=== PATIENT | male | born 1955 | race Caucasian/White ===

== ENCOUNTER 2016-05-17 20:40 | Observation (INO) | payer OTHER ==
[~2016-05-17] VITALS: Ht 180.3 cm; Wt 94.6 kg
[~2016-05-17 20:40] MED LIST: ALBUAER19 INH; ATRINS NEB; ATV/1 PO; CITA20TA9 PO; GABA-113 PO; INSDGIPEN PO; INSUINJ4 SC; LEVA1.255 PO; LEVO1TAB35 PO; METH-307 PO; MORP1TAB11 PO; MULTTAB58 PO; NITR0.4S UT; NVLGI/PEN SC; NVLGIPEN SC; PANT40TA PO; POLY335019 PO; PRED10TA PO; SENN-65 PO; TNR25X PO
[2016-05-17] MEDS ORDERED: FLUT0.15 NAE (20:51)
[2016-05-17] MEDS ORDERED: HYDR-4079 PO (20:51)
[2016-05-17] MEDS ORDERED: ADVIN50/60 INH (20:53)
--- NOTE | 2016-05-17 20:54 | EMERGENCY ROOM VISIT NOTE ---
History Report prepared by James: Enzo Maria Under the Supervision of: Dr. Luis Alberto Slater M.D. First contact with patient: 20:43 Chief Complaint: CHEST PAIN Stated Complaint: CHEST PAIN History of Present Illness The patient is a 61 year old male who presents to the Emergency Room with complaints of persistent chest pain for the past few days. The patient also complains of trouble breathing, a shooting pain down his back, diffuse body aches and a productive cough. He notes that he has been sick for the past few weeks. His chest discomfort worsened today and so he presented to the ED for further evaluation. The patient has a cardiac history. He took 2 Nitro and Aspirin at home with minimal relief of his symptoms. Source of History: patient Onset: past few days Position: chest Timing: worsening, other (persistent) Associated Symptoms: + SOB (trouble breathing), + back pain (shooting pain down his back), + cough (productive) Note: Other associated symptoms: diffuse body aches Review of Systems See HPI for pertinent positives & negatives. A total of 10 systems reviewed and were otherwise negative. 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 (15) Spinal stenosis in cervical region (16) Unstable angina Surgical Problems: (1) History of appendectomy (2) Stented coronary artery Family History Cancer Diabetes mellitus Heart disease Hypertension Lung disease Social History Smoking Status: Current Every Day Smoker Alcohol Use: none Drug Use: none Marital Status: single Housing Status: lives with family Occupation Status: unemployed Current/Historical Medications Scheduled Aspirin (Aspirin Ec), 81 MG PO DAILY Atenolol (Atenolol), 12.5 MG PO QPM Atenolol (Atenolol), 25 MG PO QAM Vmkoguz-Epjufxzcb-Eaxb (Calcium Magnesium & Zinc), 1 TAB PO DAILY Citalopram Hydrobromide (Celexa), 20 MG PO DAILY Coenzyme Q10 (Ubidecarenone) (Co Q-10), 200 MG PO TID Fluticasone Prop/Salmeterol (Advair Diskus 500/50 60 Dose), 1 PUFF INH BID Fluticasone Propionate (Nasal) (Flonase Allergy Relief), 2 SPRAYS ÁNGELA DAILY Gabapentin (Neurontin), 300 MG PO BID Insulin Glargine (Lantus Solostar), 10 UNITS PO QPM Insulin Glargine (Lantus Solostar), 20 UNITS SC QAM Insulin Lispro (Human) (Humalog Kwikpen), 8 UNITS SC BREAKFAST Insulin Lispro (Human) (Humalog Kwikpen), 8 UNITS SC MIDDAY SNACKS Insulin Lispro (Human) (Humalog Kwikpen), 10 UNITS SC SUPPER Ipratropium-Albuterol (Duoneb), 1 TREATMENT INH BID Montelukast Sod (Montelukast Sodium), 10 MG PO QAM Morphine Sulfate (Morphine Sulfate Cr), 15 MG PO TID Multiple Vitamin (Multivitamin), 1 TABLET PO DAILY Pantoprazole (Protonix), 40 MG PO DAILY Potassium Chloride Microencaps (Potassium Chloride Er), 20 MEQ PO DAILY Prednisone (Prednisone), 5 MG PO DAILY Probiotic Product (Probiotic), 1 TAB PO DAILY Warfarin Sod (Coumadin), 10 MG PO 2XWK Warfarin Sodium (Warfarin Sodium), 2.5 MG PO 5XWK Warfarin Sodium (Warfarin Sodium), 5 MG PO 5XWK Scheduled PRN Albuterol (Ventolin Hfa), 2 PUFFS INH QID PRN for SOB/Wheezing Hydrocodone/Acetaminophen 10MG/325MG ([place] 10MG/325MG), 1 TAB PO BID PRN for Pain Ipratropium-Albuterol (Duoneb), 1 TREATMENT INH Q6H PRN for SOB/Wheezing Lorazepam (Lorazepam), 1 MG PO Q8 PRN for Anxiety/Agitation Methocarbamol (Methocarbamol), 750 MG PO DAILY PRN for Muscle Pain Nitroglycerin (Nitrostat), 0.4 MG UT UD PRN for Chest Pain Polyethylene Glycol 3350 (Miralax), 17 GM PO DAILY PRN for Severe Constipation Temazepam (Restoril), 30 MG PO HS PRN for Sleep Allergies Coded Allergies: Diclofenac (Verified Adverse Reaction, Unknown, RASH WITH JOINT SWELLING- CAN TAKE ASPIRIN, 03/18/16) Physical Exam Vital Signs Date Time Temp Pulse Resp B/P Pulse Ox O2 Delivery O2 Flow Rate FiO2 05/17/16 22:23 36.7 05/17/16 22:23 57 23 105/64 96 Room Air 05/17/16 21:30 60 20 122/68 95 05/17/16 20:49 97 Room Air 05/17/16 20:49 70 16 125/76 98 Room Air 05/17/16 20:49 66 05/17/16 20:47 98 Nasal Cannula Physical Exam GENERAL: Patient is uncomfortable appearing and in moderate distress. HEENT: No acute trauma, normocephalic atraumatic, mucous membranes moist, no nasal congestion, no scleral icterus. NECK: No stridor, no adenopathy, no meningismus, trachea is midline. LUNGS: No dyspnea. Clear to auscultation and equal bilaterally. No wheeze, no rhonchi. HEART: Regular rate and rhythm. No murmurs, rubs, gallops appreciated. ABDOMEN: Soft, nontender, bowel sounds positive, no masses appreciated, no peritonitis. BACK: No midline tenderness, no CVA tenderness EXTREMITIES: Normal motion all extremities, no cyanosis, no edema. NEUROLOGIC: Alert and oriented, no acute motor or sensory deficits, no focal weakness, cranial nerves grossly intact. SKIN: No rash, no jaundice, no diaphoresis. Medical Decision & Procedures ER Provider Diagnostic Interpretation: X ray results and stated below per my interpretation and radiologist interpretation. Other radiology results and stated below per my review and radiologist interpretation: CHEST ONE VIEW PORTABLE CLINICAL HISTORY: Chest pain. COMPARISON STUDY: Chest radiograph March 18, 2016. FINDINGS: Note is made of lordotic positioning on this exam. Lung volumes are normal. Mild linear bibasilar opacities favor atelectasis. Cardiac size is normal. Mediastinal contours are normal. There is no evidence of pulmonary edema. IMPRESSION: 1. No acute cardiopulmonary findings. 2. Mild bibasilar opacities which favor atelectasis. Electronically signed by: Uday Shields M.D. 05/17/2016 9:45 PM Dictated Date/Time: 05/17/2016 9:44 PM Chest/ Thorax CTA: Laboratory Results 05/17/16 20:18 Red Blood Count 4.85, Mean Corpuscular Volume 89.9, Mean Corpuscular Hemoglobin 32.4, Mean Corpuscular Hemoglobin Concent 36.0, Mean Platelet Volume 10.8, Neutrophils (%) (Auto) 76.9, Lymphocytes (%) (Auto) 17.1, Monocytes (%) (Auto) 5.3, Eosinophils (%) (Auto) 0.3, Basophils (%) (Auto) 0.2, Neutrophils # (Auto) 6.86, Lymphocytes # (Auto) 1.53, Monocytes # (Auto) 0.47, Eosinophils # (Auto) 0.03, Basophils # (Auto) 0.02 05/17/16 20:18 Test 05/17/16 20:18 White Blood Count 8.93 K/uL (4.8-10.8) Red Blood Count 4.85 M/uL (4.7-6.1) Hemoglobin 15.7 g/dL (14.0-18.0) Hematocrit 43.6 % (42-52) Mean Corpuscular Volume 89.9 fL (80-100) Mean Corpuscular Hemoglobin 32.4 pg (25-34) Mean Corpuscular Hemoglobin Concent 36.0 g/dl (32-36) Platelet Count 189 K/uL (130-400) Mean Platelet Volume 10.8 fL (7.4-10.4) Neutrophils (%) (Auto) 76.9 % Lymphocytes (%) (Auto) 17.1 % Monocytes (%) (Auto) 5.3 % Eosinophils (%) (Auto) 0.3 % Basophils (%) (Auto) 0.2 % Neutrophils # (Auto) 6.86 K/uL (1.4-6.5) Lymphocytes # (Auto) 1.53 K/uL (1.2-3.4) Monocytes # (Auto) 0.47 K/uL (0.11-0.59) Eosinophils # (Auto) 0.03 K/uL (0-0.5) Basophils # (Auto) 0.02 K/uL (0-0.2) RDW Standard Deviation 40.4 fL (36.4-46.3) RDW Coefficient of Variation 12.4 % (11.5-14.5) Immature Granulocyte % (Auto) 0.2 % Immature Granulocyte # (Auto) 0.02 K/uL (0.00-0.02) Prothrombin Time 19.4 SECONDS (9.0-12.0) Prothromb Time International Ratio 1.8 (0.9-1.1) Activated Partial Thromboplast Time 33.6 SECONDS (21.0-31.0) Partial Thromboplastin Ratio 1.3 Anion Gap 11.0 mmol/L (3-11) Est Creatinine Clear Calc Drug Dose 107.8 ml/min Estimated GFR () 107.2 Estimated GFR (Non- 92.5 BUN/Creatinine Ratio 19.3 (10-20) Calcium Level 9.3 mg/dl (8.5-10.1) Laboratory results as reviewed by me. Medications Administered Medications (Trade) Dose Ordered Sig/Tal Route Start Time Stop Time Status Last Admin Dose Admin Nitroglycerin (Nitrostat Tab) 0.4 mg Q5M PRN SL 05/17/16 21:00 05/18/16 01:17 DC 05/17/16 21:02 0.4 MG Nitroglycerin (Nitroglycerin 2% Oint) 1 inch NOW ONCE EXT 05/17/16 21:00 05/17/16 21:01 DC 05/17/16 21:02 1 INCH Hydromorphone HCl (Dilaudid Inj) 1 mg NOW STAT IV 05/17/16 22:15 05/17/16 22:16 DC 05/17/16 22:30 1 MG Morphine Sulfate (MoRPHine SULFATE INJ) 2 mg Q30M PRN IV 05/18/16 00:15 06/01/16 00:14 05/18/16 01:33 2 MG ECG Indication: chest pain Rate (beats per minute): 68 Rhythm: normal sinus Findings: no acute ischemic change, no ectopy ED Course 2044: The patient was evaluated in room A9. A complete history and physical exam was performed. 2099: Ordered Nitroglycerin 1 inch EXT, Nitroglycerin 0.4 mg SL/ Chest pain. 2199: At this time, I discussed the patient's case with Dr. Haddad- [facility] and she agreed to accept the patient for further evaluation. 2214: Ordered Dilaudid Inj 1 mg IV. Medical Decision Differential: Cardiac Ischemia (STEMI, NSTEMI, Unstable Angina, etc), Aortic Dissection, Arrhythmia, Pulmonary Embolism, Pneumonia, Pneumothorax, MSK, Infectious, Pericarditis/Myocarditis, Esophageal Rupture, Gastrointestinal, amongst other pathologies entertained. 61 yr old male with extensive cardiac history arrives with acute worsening of cp which improved with nitro/paste. Complaining of diffuse body aches as well which he notes frequently gets thus dilaudid ordered with improvement. Complaining of frequent SOB and cough which he has been on multiple abx over last few months. No pneumonia on cxr and wbc OK without fever thus will hold on any empiric further abx. Given cardiac history I feel that cardiac rule out required. Stable throughout ED stay and brought in to medicine service. I do not feel this represents PE, dissection, rupture. No ACS evidence at this time of than history. Consults Time Called: 2154 Consulting Physician: Dr. Haddad - Hospitalist Sm[facility] Returned Call: 0 At this time, I discussed the patient's case with Dr. Haddad and she agreed to accept the patient for further evaluation. Impression Primary Impression: Left sided chest pain Additional Impression: SOB (shortness of breath) Scribe Attestation The scribe's documentation has been prepared under my direction and personally reviewed by me in its entirety. I confirm that the note above accurately reflects all work, treatment, procedures, and medical decision making performed by me. Departure Information Dispostion Being Evaluated By Hospitalist Referrals Justin Crook D.O. (PCP) Problem Qualifiers
[2016-05-17] MEDS ORDERED: NITROGLYCERIN 0.4 MG SL PER TAB CHARGE SL PRN (21:00)
[2016-05-17] MEDS ORDERED: NITROGLYCERIN OINT 2% 1GM PACKET EXT ONE (21:00)
[2016-05-17 21:07] LABS: BASO % 0.2 %; BASO ABS # 0.02 K/uL (0-0.2); COMPLETE YES; EOS % 0.3 %; HEMATOCRIT 43.6 % (42-52); IG% 0.2 %; LYMPH % 17.1 %; LYMPH ABS # 1.53 K/uL (1.2-3.4); MEAN CELL VOLUME 89.9 fL (80-100); MEAN CORPUSCULAR HEMOGLOBIN 32.4 pg (25-34); MEAN PLATELET VOLUME 10.8 fL (7.4-10.4); MONO % 5.3 %; NEUT % 76.9 %; PLATELET COUNT 189 K/uL (130-400); RED BLOOD COUNT 4.85 M/uL (4.7-6.1); WHITE BLOOD COUNT 8.93 K/uL (4.8-10.8)
[2016-05-17 21:23] LABS: BLOOD UREA NITROGEN 17 mg/dl (7-18); BUN/CREATININE RATIO 19.3 (10-20); CALCIUM 9.3 mg/dl (8.5-10.1); CARBON DIOXIDE 24 mmol/L (21-32); CHLORIDE 104 mmol/L (98-107); GLUCOSE 168 mg/dl (70-99); POTASSIUM 4.4 mmol/L (3.5-5.1); SODIUM 139 mmol/L (136-145)
[2016-05-17 21:28] LABS: CKMB/CK RATIO 2.7 (0-3.0)
--- NOTE | 2016-05-17 21:46 | DIAGNOSTIC IMAGING REPORT ---
CHEST ONE VIEW PORTABLE CLINICAL HISTORY: Chest pain. COMPARISON STUDY: Chest radiograph March 18, 2016. FINDINGS: Note is made of lordotic positioning on this exam. Lung volumes are normal. Mild linear bibasilar opacities favor atelectasis. Cardiac size is normal. Mediastinal contours are normal. There is no evidence of pulmonary edema. IMPRESSION: 1. No acute cardiopulmonary findings. 2. Mild bibasilar opacities which favor atelectasis. Electronically signed by: Uday Shields M.D. 05/17/2016 9:45 PM Dictated Date/Time: 05/17/2016 9:44 PM
[2016-05-17] MEDS ORDERED: MORP-86 PO (22:00)
[2016-05-17] MEDS ORDERED: POTA20TA13 PO (22:00)
[2016-05-17] MEDS ORDERED: PRED10TA PO (22:00)
[2016-05-17] MEDS ORDERED: CMD5 PO (22:00)
[2016-05-17] MEDS ORDERED: INSDGIPEN SC (22:00)
[2016-05-17] MEDS ORDERED: ATV1 PO (22:00)
[2016-05-17] MEDS ORDERED: PANT40TA PO (22:00)
[2016-05-17] MEDS ORDERED: RBX750 PO (22:00)
[2016-05-17] MEDS ORDERED: NTRGSL/4 UT (22:00)
[2016-05-17] MEDS ORDERED: PRVHFAIN INH (22:04)
[2016-05-17] MEDS ORDERED: HYDROmorphone INJ 1 MG/ML SYR IV STA (22:15)
[2016-05-17] MEDS ORDERED: INSU100I2 SC ×3 (22:18)
[2016-05-17] MEDS ORDERED: ASPI81TA28 PO (22:20)
[2016-05-17] MEDS ORDERED: PROB1TAB16 PO (22:38)
[2016-05-17] MEDS ORDERED: CALC1TAB27 PO (22:38)
[2016-05-17] MEDS ORDERED: COEN1CAP37 PO (22:38)
[2016-05-17 23:39] LABS: INR 1.8 (0.9-1.1); PARTIAL THROMBOPLASTIN RATIO 1.3; PROTHROMBIN TIME (PATIENT) 19.4 SECONDS (9.0-12.0)
[2016-05-17] MEDS ORDERED: TNR25 PO (23:39)
[2016-05-17] MEDS ORDERED: RST/30 PO (23:39)
[2016-05-17] MEDS ORDERED: WARF-280 PO (23:39)
[2016-05-17] MEDS ORDERED: SNG10 PO (23:39)
[2016-05-17] MEDS ORDERED: WARF-246 PO (23:39)
[2016-05-17] MEDS ORDERED: OPTIRAY 320 IV PRN (23:45)
[2016-05-18] VITALS (13 sets, daily range): BP systolic 91–144; BP diastolic 47–77; PULSE 59–71; TEMP 36.5–36.8; O2SAT 92–99; BMI 32.4
[2016-05-18] MEDS ORDERED: SODIUM CHLORIDE 0.9% 1000ML 1,000 ML IV SCH (00:04)
--- NOTE | 2016-05-18 00:04 | History and Physical ---
History & Physical Date & Time of Service: May 17, 2016 at 23:43 Chief Complaint: Chest Pain Primary Care Physician: Justin Crook D.O. History of Present Illness Source: patient 61 yoM with h/o CAD s/p multiple stents along with chronic pain syndrome presents with worsening chest pain over the last three days. He states that back in Feb he developed a respiratory infection that wouldn't go away despite three rounds of antibiotics, the last round reportedly one month ago. He still has a nonproductive cough and some chills recently and reports an overall worsening of generalized weakness, chest pain at rest (similar to index angina) , worsening of chronic neck and body pain, worsening of shortness of breath (is exhausted and working to breathe after taking a shower or climbing stairs when normal at baseline) all within the last few days. He reports the chest pain is dull and "all over with radiation to the back of my neck" and was associated with sweating and SOB. He reports that his pain is currently gone after nitro was given in the ER, and it came on while at home watching television today around 3 pm. He noted intermittent chest pain over the last three days as well , but didn't specify the events surrounding these episodes. He did say he took nitro and the pain resolved. ROS also reveals headaches, multiple chronic tendonopathies including a recent L biceps tear, issues with PTSD for which he would like to speak with someone, chronic generalized pain, and legs feeling heavy like lead, falls at home without loss of consciousness 2/2 lightheadedness and dizziness about one month ago. He denies sore throat, fevers, abdominal pain, nausea, vomiting, palpitations, blood per rectum. He does not report any stroke-like symptoms. He states that he got a severe pneumonia last year around the same time for which he was hospitalized and required multiple IV medications and a few days to get over. He states that with each round of abx with this illness, he has almost felt better and then gotten worse. He states that he takes breathing treatments at home via nebulizer but recently ran out so is using his albuterol inhaler which seems to help. He reports last seeing a filter tank operator one year ago while he was in the hospital. Past Medical/Surgical History Medical Problems: (1) Atrial fibrillation Status: Chronic (2) Bipolar disorder Status: Chronic (3) Chronic obstructive lung disease Status: Chronic (4) Coronary artery disease Permanent Comment: s/p multiple caths and PCI at [facility] Status: Chronic (5) Diabetes mellitus type 2 Status: Chronic (6) Dyslipidemia Status: Chronic (7) Gastroesophageal reflux disease Status: Chronic (8) History of - myocardial infarction Status: Resolved (9) HTN (hypertension) Status: Chronic (10) Insomnia Status: Chronic (11) Paralysis of diaphragm Status: Chronic (12) Peptic ulcer Status: Resolved (13) MADIE'S DISEASE Status: Chronic (14) Spinal stenosis in cervical region Status: Chronic (15) Unstable angina Status: Chronic Surgical Problems: (1) History of appendectomy Permanent Comment: 11/06/13 Status: Resolved (2) Stented coronary artery Permanent Comment: stent x 7 from [id number] Status: Resolved Family History Cancer Diabetes mellitus Heart disease Hypertension Lung disease Social History Smoking Status: Current Every Day Smoker Smokeless Tobacco Use: No Alcohol Use: none Drug Use: none Marital Status: single Housing status: lives alone Occupational Status: unemployed, disabled Immunizations History of Influenza Vaccine: Yes Influenza Vaccine Date: Jan 28, 2016 History of Tetanus Vaccine?: Yes Tetanus Immunization Date: August 23, 2008 History of Pneumococcal: Yes Pneumococcal Date: Feb 09, 2007 History of Hepatitis B Vaccine: Yes Hepatitis Immunization Date: August 23, 2002 Multi-Drug Resistant Organisms History of MDRO: No Allergies Coded Allergies: Diclofenac (Verified Adverse Reaction, Unknown, RASH WITH JOINT SWELLING- CAN TAKE ASPIRIN, 03/18/16) Home Medications Scheduled Aspirin (Aspirin Ec), 81 MG PO DAILY Atenolol (Atenolol), 12.5 MG PO QPM Atenolol (Atenolol), 25 MG PO QAM Iuhjolg-[facility] (Calcium Magnesium & Zinc), 1 TAB PO DAILY Citalopram Hydrobromide (Celexa), 20 MG PO DAILY Coenzyme Q10 (Ubidecarenone) (Co Q-10), 200 MG PO TID Fluticasone Prop/Salmeterol (Advair Diskus 500/50 60 Dose), 1 PUFF INH BID Fluticasone Propionate (Nasal) (Flonase Allergy Relief), 2 SPRAYS ÁNGELA DAILY Gabapentin (Neurontin), 300 MG PO BID Insulin Glargine (Lantus Solostar), 10 UNITS PO QPM Insulin Glargine (Lantus Solostar), 20 UNITS SC QAM Insulin Lispro (Human) (Humalog Kwikpen), 8 UNITS SC BREAKFAST Insulin Lispro (Human) (Humalog Kwikpen), 8 UNITS SC MIDDAY SNACKS Insulin Lispro (Human) (Humalog Kwikpen), 10 UNITS SC SUPPER Ipratropium-Albuterol (Duoneb), 1 TREATMENT INH BID Montelukast Sod (Montelukast Sodium), 10 MG PO QAM Morphine Sulfate (Morphine Sulfate Cr), 15 MG PO TID Multiple Vitamin (Multivitamin), 1 TABLET PO DAILY Pantoprazole (Protonix), 40 MG PO DAILY Potassium Chloride Microencaps (Potassium Chloride Er), 20 MEQ PO DAILY Prednisone (Prednisone), 5 MG PO DAILY Probiotic Product (Probiotic), 1 TAB PO DAILY Warfarin Sod (Coumadin), 10 MG PO 2XWK Warfarin Sodium (Warfarin Sodium), 2.5 MG PO 5XWK Warfarin Sodium (Warfarin Sodium), 5 MG PO 5XWK Scheduled PRN Albuterol (Ventolin Hfa), 2 PUFFS INH QID PRN for SOB/Wheezing Hydrocodone/Acetaminophen 10MG/325MG ([place] 10MG/325MG), 1 TAB PO BID PRN for Pain Ipratropium-Albuterol (Duoneb), 1 TREATMENT INH Q6H PRN for SOB/Wheezing Lorazepam (Lorazepam), 1 MG PO Q8 PRN for Anxiety/Agitation Methocarbamol (Methocarbamol), 750 MG PO DAILY PRN for Muscle Pain Nitroglycerin (Nitrostat), 0.4 MG UT UD PRN for Chest Pain Polyethylene Glycol 3350 (Miralax), 17 GM PO DAILY PRN for Severe Constipation Temazepam (Restoril), 30 MG PO HS PRN for Sleep Review of Systems All reviewed and negative except as indicated in HPI above. Physical Exam Vital Signs Date Time Temp Pulse Resp B/P Pulse Ox O2 Delivery O2 Flow Rate FiO2 05/17/16 22:23 36.7 05/17/16 22:23 57 23 105/64 96 Room Air 05/17/16 21:30 60 20 122/68 95 05/17/16 20:49 97 Room Air 05/17/16 20:49 70 16 125/76 98 Room Air 05/17/16 20:49 66 2/21/17 20:47 98 Nasal Cannula GEN: WNWD, in no acute distress, alert and appropriate, no accessory muscle use or tachypnea. HEENT: NC/AT, PERRL, normal sclerae, EOMI CARDIO: reg rate, S1/2 heard without m/g/r, no chest wall TTP and skin is clear LUNGS: wheezes and rhonchi throughout all lung otoole, good diaphragmatic excursion, some coughing with deep breathing ABD: soft, non-tender, non-distended, no rebound or guarding, +BS EXTREMITY: RP and DP palpable 2+ bilat, no LE swelling or edema, extremities are warm and well-perfused L biceps appears torn, no bruising, apparently normal ROM NEURO: CN 2-12 grossly intact, sensation intact throughout, coordination intact (finger-to nose, Julito, [id number]) (reflexes) knee 2+ bilat MUSC: 5/5 strength throughout, no focal deficits SKIN: warm and dry, no rashes or lesions evident Diagnostics Laboratory Results Results Past 24 Hours Test 05/17/16 20:18 Range/Units White Blood Count 8.93 4.8-10.8 K/uL Red Blood Count 4.85 4.7-6.1 M/uL Hemoglobin 15.7 14.0-18.0 g/dL Hematocrit 43.6 42-52 % Mean Corpuscular Volume 89.9 80-100 fL Mean Corpuscular Hemoglobin 32.4 25-34 pg Mean Corpuscular Hemoglobin Concent 36.0 32-36 g/dl Platelet Count 189 130-400 K/uL Mean Platelet Volume 10.8 7.4-10.4 fL Neutrophils (%) (Auto) 76.9 % Lymphocytes (%) (Auto) 17.1 % Monocytes (%) (Auto) 5.3 % Eosinophils (%) (Auto) 0.3 % Basophils (%) (Auto) 0.2 % Neutrophils # (Auto) 6.86 1.4-6.5 K/uL Lymphocytes # (Auto) 1.53 1.2-3.4 K/uL Monocytes # (Auto) 0.47 0.11-0.59 K/uL Eosinophils # (Auto) 0.03 0-0.5 K/uL Basophils # (Auto) 0.02 0-0.2 K/uL RDW Standard Deviation 40.4 36.4-46.3 fL RDW Coefficient of Variation 12.4 11.5-14.5 % Immature Granulocyte % (Auto) 0.2 % Immature Granulocyte # (Auto) 0.02 0.00-0.02 K/uL Prothrombin Time 19.4 9.0-12.0 SECONDS Prothromb Time International Ratio 1.8 0.9-1.1 Activated Partial Thromboplast Time 33.6 21.0-31.0 SECONDS Partial Thromboplastin Ratio 1.3 Sodium Level 139 136-145 mmol/L Potassium Level 4.4 3.5-5.1 mmol/L Chloride Level 104 98-107 mmol/L Carbon Dioxide Level 24 21-32 mmol/L Anion Gap 11.0 3-11 mmol/L Blood Urea Nitrogen 17 7-18 mg/dl Creatinine 0.90 0.60-1.40 mg/dl Est Creatinine Clear Calc Drug Dose 107.8 ml/min Estimated GFR () 107.2 Estimated GFR (Non- 92.5 BUN/Creatinine Ratio 19.3 10-20 Random Glucose 168 70-99 mg/dl Calcium Level 9.3 8.5-10.1 mg/dl Total Creatine Kinase 218 39-308 U/L Creatine Kinase MB 5.9 0.5-3.6 ng/ml Creatine Kinase MB Ratio 2.7 0-3.0 Troponin I < 0.015 0-0.045 ng/ml Diagnostic Radiology CXR PORT: 1. No acute cardiopulmonary findings. 2. Mild bibasilar opacities which favor atelectasis. CT-PE- 1. No central or lobar pulmonary emboli. The segmental and subsegmental pulmonary arteries are suboptimally assessed due to suboptimal vascular opacification. 2. Right middle lobe volume loss with mild airspace opacity. Severe narrowing at the origin the right middle lobe bronchus with multifocal occlusion of segmental bronchi within the right middle lobe, possibly due to mucoid impaction or debris. The findings favor atelectasis although pneumonia could appear similar. No definite mass identified however a follow-up CT of the chest in 3 months is recommended to exclude a central obstructing lesion. 3. Extensive coronary artery calcification and mild cardiomegaly. EKG SR 68 , q waves in II, III and AVF that are on prior EKG, no other ST changes or evidence of ischemia Impression Assessment and Plan 61 yoM with known CAD presents with worsening chest pain and dyspnea on exertion over the past few days. 1. Chest pain-rule out ACS, f/u CT PE protocol-->negative for PE -Consult cards with h/o multiple stents and index angina -trend cardiac enzymes -nitro paste q6h -morphine IV PRN -ASA 325 now, 81 daily -Lipitor 80 added in setting of ACS, not on statin at home?, would consider adding at discharge 2. CAP-atelectasis seen on initial CXR and with cough, chills, weakness and shortness of breath will treat empirically for CAP -CT chest findings are consistent with possible infiltrate in the RML with mucous plug vs debris. Repeat CT chest in 3 months is recommended. -Doxy -Duoneb q4h -blood and sputum cultures 3. COPD exacerb with wheezing on lung exam, cough, and shortness of breath which was changed from baseline. -not on home O2 -Duonebs and Doxy as above -Solumedrol 40IV q8h -cont singulair 4. chronic pain syndrome/fibromyalgia/chronic neck pain-cont Morphine and Rohwer for breakthrough as he takes at home -cont gabapentin -consider pain consult as patient states he would like to get off pain meds 5. Atrial fibrillation-rate controlled, currently in sinus rhythm -cont coumadin -trend INR daily while inpatient -cont atenolol for rate control 6. Hypertension-controlled, cont atenolol.\\ 7. Biceps tendon rupture-per patient this is one week old. Will defer to primary team for workup. Patient states he has had multiple tendon ruptures in the past. Has a h/o Madie's syndrome and he is on chronic prednisone as a risk factor. 8. DMII-cont ISS with Lantus, Glycemic pharmacy consult placed 9. PTSD stopped Celexa one month ago asking for Psych consult to reinitiate care from this standpoint 10. Bipolar disorder 11. Tobacco use-smoking cessation counseling ordered -no nicotine in setting of poss ACS DVT proph-coumadin Full Code Dispo-to telemetry floor Pooja Haddad DO [facility] Hospitalist Level of Care Telemetry Resuscitation Status FULL RESUSCITATION VTE Prophylaxis Risk Level: Moderate Given or contraindicated: Warfarin (Coumadin)
[2016-05-18] MEDS ORDERED: ONDANSETRON INJ 2 MG/ML 2 ML VIAL IV PRN (00:15)
[2016-05-18] MEDS ORDERED: GLUCOSE 40% GEL 15 GM TUBE PO PRN (00:15)
[2016-05-18] MEDS ORDERED: ACETAMINOPHEN 325 MG TAB PO PRN (00:15)
[2016-05-18] MEDS ORDERED: GLUCAGON FOR INJ 1 MG VIAL SQ PRN (00:15)
[2016-05-18] MEDS ORDERED: DEXTROSE 50% 50 ML SYR IV PRN (00:15)
[2016-05-18] MEDS ORDERED: GLUCOSE 10 TABS/TUBE PO PRN (00:15)
[2016-05-18] MEDS ORDERED: IPRASOL4 INH ×2 (00:22)
[2016-05-18] MEDS: ATORVASTATIN 40 MG TAB PO SCH ×2 (00:45→20:07)
[2016-05-18] MEDS ORDERED: PHARMACY GLYCEMIC MGMT CONSULT PRN (01:06)
[2016-05-18] MEDS ORDERED: ASPIRIN 325 MG ECTAB PO STA (01:11)
[2016-05-18] MEDS: MoRPHine SULFATE 2 MG/ML CARP IV PRN ×2 (01:33→08:13)
[2016-05-18] MEDS ORDERED: INSULIN GLARGINE SOLOSTAR 100 UNITS/ML 3 ML PEN SC STA (01:34)
[2016-05-18 02:13] LABS: CKMB/CK RATIO 3.1 (0-3.0)
[2016-05-18] MEDS ORDERED: ALBUT/IPRATROP 3MG/0.5MG NEB 3 ML VIAL ONE (02:27)
[2016-05-18] MEDS ORDERED: IV FLUIDS COMPLETED PRN (02:30)
[2016-05-18] MEDS: METHYLPREDNISOLONE IV 40 MG in SYRINGE 0 ML IV SCH ×3 (02:51→17:37)
[2016-05-18] MEDS: DOXYCYCLINE IV 100 MG in DEXTROSE 5% 100ML 100 ML IV SCH ×2 (02:51→14:16)
[2016-05-18] MEDS: TEMAZEPAM 15 MG CAP PO PRN ×2 (02:57→22:38)
[2016-05-18] MEDS: ALBUT/IPRATROP 3MG/0.5MG NEB 3 ML VIAL INH SCH ×5 (03:59→23:17)
[2016-05-18] MEDS: NITROGLYCERIN OINT 2% 1GM PACKET EXT SCH ×4 (05:30→22:00)
[2016-05-18 05:36] LABS: HEMATOCRIT 42.2 % (42-52); MEAN CELL VOLUME 93.2 fL (80-100); MEAN CORPUSCULAR HEMOGLOBIN 32.5 pg (25-34); MEAN CORPUSCULAR HGB CONC 34.8 g/dl (32-36); MEAN PLATELET VOLUME 10.4 fL (7.4-10.4); PLATELET COUNT 152 K/uL (130-400); RED BLOOD COUNT 4.53 M/uL (4.7-6.1); WHITE BLOOD COUNT 8.86 K/uL (4.8-10.8)
[2016-05-18 05:47] LABS: INR 1.8 (0.9-1.1); PROTHROMBIN TIME (PATIENT) 20.1 SECONDS (9.0-12.0)
[2016-05-18 05:55] LABS: BUN/CREATININE RATIO 18.5 (10-20); CALCIUM 8.6 mg/dl (8.5-10.1); CREATININE 0.86 mg/dl (0.60-1.40); MAGNESIUM 2.3 mg/dl (1.8-2.4); POTASSIUM 4.6 mmol/L (3.5-5.1)
[2016-05-18 05:58] LABS: CHOLESTEROL/HDL RATIO 4.8
--- NOTE | 2016-05-18 06:53 | DIAGNOSTIC IMAGING REPORT ---
CT ANGIOGRAPHY OF THE CHEST, PULMONARY EMBOLUS PROTOCOL CLINICAL HISTORY: Shortness of breath and chest pain. COMPARISON STUDY: Chest radiograph performed earlier today and chest CT November 16, 2012. TECHNIQUE: Following IV administration of 118 mL of [id number], helical axial images of the chest were obtained utilizing the pulmonary embolus protocol. Maximal intensity projections and sagittal and coronal reformats were viewed on an independent 3D workstation. IV contrast was administered without complication. CT DOSE: 675.20 mGy.cm FINDINGS: No central or lobar pulmonary embolus are identified. The segmental and subsegmental pulmonary arteries are suboptimally assessed due to suboptimal vascular opacification. The heart is mildly enlarged. There is extensive coronary artery calcification. There is no dissection of the thoracic aorta. There is no pericardial effusion. No enlarged thoracic lymph nodes are present. There is severe narrowing at the origin of the right middle lobe bronchus with multifocal occlusion within segmental bronchi of the right middle lobe. There is right middle lobe volume loss with airspace opacity. There is no pneumothorax or pleural effusion. No suspicious osseous lesions are present within the bony thorax. There is fatty infiltration of the liver. There are small partially calcified upper abdominal lymph nodes. IMPRESSION: 1. No central or lobar pulmonary emboli. The segmental and subsegmental pulmonary arteries are suboptimally assessed due to suboptimal vascular opacification. 2. Right middle lobe volume loss with mild airspace opacity. Severe narrowing at the origin the right middle lobe bronchus with multifocal occlusion of segmental bronchi within the right middle lobe, possibly due to mucoid impaction or debris. The findings favor atelectasis although pneumonia could appear similar. No definite mass identified however a follow-up CT of the chest in 3 months is recommended to exclude a central obstructing lesion. 3. Extensive coronary artery calcification and mild cardiomegaly. Electronically signed by: Uday Shields M.D. 05/18/2016 6:52 AM Dictated Date/Time: 05/18/2016 6:45 AM
[2016-05-18] MEDS: INSULIN ASPART 100 UNITS/ML 3 ML PEN SC SCH ×4 (07:23→20:29)
[2016-05-18] MEDS ORDERED: ASPIRIN 81 MG ECTAB PO SCH (09:00)
[2016-05-18] MEDS ORDERED: INSULIN GLARGINE SOLOSTAR 100 UNITS/ML 3 ML PEN SC SCH ×2 (09:00)
[2016-05-18] MEDS: PANTOprazole SOD 40 MG TAB PO SCH (09:01)
[2016-05-18] MEDS: LORAZEPAM 1 MG TAB PO PRN ×2 (09:01→17:32)
[2016-05-18] MEDS: FLUTICASONE PROPIONATE NA SPR 16 GM BTL NAE SCH (09:03)
[2016-05-18] MEDS: POTASSIUM CHLORIDE 20 MEQ TABCR PO SCH (09:04)
[2016-05-18] MEDS: MULTIVITAMIN TAB PO SCH (09:05)
[2016-05-18] MEDS: GABAPENTIN 300 MG CAP PO SCH ×2 (09:06→20:06)
[2016-05-18 09:09] LABS: CKMB/CK RATIO 3.2 (0-3.0)
[2016-05-18] MEDS: MoRPHine SULFATE CR 15 MG TAB (MS CONTIN) PO SCH ×3 (09:21→20:06)
[2016-05-18] MEDS ORDERED: AMLODIPINE BESYLATE 5 MG TAB PO ONE (09:45)
[2016-05-18 09:48] LABS: INFLUENZA A PCR Neg for Influ A (NEG); INFLUENZA B PCR Neg for Influ B (NEG)
[2016-05-18] MEDS: METHOCARBAMOL 750 MG TAB PO PRN (11:57)
--- NOTE | 2016-05-18 12:04 | Pharmacy Progress Note ---
Glycemic Control Intl Consult Date of Service May 18, 2016. Scope Glycemic Pharmacist consulted for glycemic control and to write orders per [facility] inpatient glycemic control protocol Objective Weight (Kilograms): 105.400 Accuchecks BSG (last 24hrs): Test 05/17/16 20:18 05/18/16 02:44 05/18/16 05:21 05/18/16 07:17 Random Glucose 168 mg/dl (70-99) 144 mg/dl (70-99) Bedside Glucose 94 mg/dl (70-99) 174 mg/dl (70-99) Test 05/18/16 10:29 Bedside Glucose 233 mg/dl (70-99) Laboratory Data (last 24hrs) Test 05/17/16 20:18 05/18/16 05:21 Anion Gap 11.0 mmol/L 5.0 mmol/L BUN/Creatinine Ratio 19.3 18.5 Blood Urea Nitrogen 17 mg/dl 16 mg/dl Creatinine 0.90 mg/dl 0.86 mg/dl Potassium Level 4.4 mmol/L 4.6 mmol/L Sodium Level 139 mmol/L 139 mmol/L White Blood Count 8.93 K/uL 8.86 K/uL Red Blood Count 4.85 M/uL Hemoglobin 15.7 g/dL Hematocrit 43.6 % Mean Corpuscular Volume 89.9 fL Mean Corpuscular Hemoglobin 32.4 pg Mean Corpuscular Hemoglobin Concent 36.0 g/dl Platelet Count 189 K/uL Mean Platelet Volume 10.8 fL Neutrophils (%) (Auto) 76.9 % Lymphocytes (%) (Auto) 17.1 % Monocytes (%) (Auto) 5.3 % Eosinophils (%) (Auto) 0.3 % Basophils (%) (Auto) 0.2 % Neutrophils # (Auto) 6.86 K/uL Lymphocytes # (Auto) 1.53 K/uL Monocytes # (Auto) 0.47 K/uL Eosinophils # (Auto) 0.03 K/uL Basophils # (Auto) 0.02 K/uL HbA1c Pending for 05/19/16 Recent Pertinent Medications Outpatient Anti-diabetic Regimen: * Lantus 20 units SQ AM + 10 units SQ PM * Humalog 8/8/10 units with breakfast/lunch/dinner respectively * Total daily dose ~ 56 units/day * Also, maintained on prednisone 5mg daily The patient is currently receiving: * Basal insulin: Lantus 10 units x 1 dose @ 0300 this morning * Correctional Insulin: Novolog Correction per scale ACHS Goal Range: Low 100 mg/dL - High 140 mg/dL Correction Factor: 20 mg/dL/unit * Prandial insulin: Per carb ratio of 1 unit per 7 grams CHO consumed Assessment & Plan ASSESSMENT: * 61yo T2DM male well known to pharmacy from previous admissions/glycemic consults. * Degree of outpatient control is unknown - A1c pending for tomorrow. Last reported A1c was 8% in June of 2015. Since then, additional dose of Lantus has been added at bedtime so expect A1c to be closer to goal range * Pt with risk factors for insulin resistance/hyperglycemia including: high dose RTC IV steroids, infection/illness, diet * Will utilize weight based dosing of basal insulin which is similar to outpatient dosing and aggressive CF/CR for steroid induced hyperglycemia. * Will use "BSG range" based basal insulin dosing to prevent hypoglycemia when steroids tapered. * ADA & AACE recommend a goal blood sugar range 140-180 mg/dl for the majority of critically ill & non-critically ill patients. However, more stringent targets may be selected in individual cases. Will utilize more stringent goal range of 110-140mg/dl based on age/co-morbidities. PLAN FOR INPATIENT GLYCEMIC CONTROL: * Basal insulin with Lantus SQ BID- dosing based on BSG and degree of hyperglycemia * If BSG 110mg/dl or below --> do not give Lantus * If BSG 111-180mg/dl --> Give 15 units of Lantus * If BSG 181mg/dl or above --> Give 20 units of Lantus * Correctional Insulin with NOVOLOG per scale ACHS or Q6hrs while NPO * Goal Range: Low 110 mg/dL - High 140 mg/dL * Correction Factor: 20 mg/dL/unit * Nutritional / Prandial insulin per carb ratio of 1 unit per 7 grams CHO consumed * Please note that the plan above was derived based on current level of insulin resistance and hospital stress. These recommendations are appropriate for inpatient admission only. Plan of care upon discharge will need to be reassessed to avoid potential outpatient hypo/hyperglycemia. Thank you.
--- NOTE | 2016-05-18 13:41 | CARDIOLOGY CONSULTATION ---
DATE OF CONSULTATION: 05/18/2016 HISTORY OF PRESENT ILLNESS: Bessie Pereira is a 61-year-old male seen in cardiology consultation per the request of Dr. Haddad for the evaluation of chest discomfort. The patient's primary care provider is Dr. Justin Crook. The patient had last been seen in outpatient cardiology followup by Dr. Lawton of our practice in March 2014. He had missed several appointments in the interim time. The patient states that since he was treated for pneumonia in February. He has had continued difficulty from a pulmonary standpoint and he has not quite felt right. He notes episodic chest discomfort. In the past, he would have occasional angina that was relieved with sublingual nitroglycerin maybe a few times per month or less. Over the last 4-5 months, he notes an increase in his use of nitroglycerin and is currently using it several times per week. Yesterday on his day of presentation, he noted that he was sitting still watching television and had acute onset of midline and left-sided chest discomfort that radiated to his mid back. He felt this discomfort was reminiscent of his prior myocardial infarctions. He took sublingual nitroglycerin and the discomfort subsequently improved to some degree. He presented to the Emergency Department, his initial blood pressure was stable at 125/76. Initial EKG revealed sinus rhythm with age undetermined inferior infarction pattern and no new ST changes. The patient was observed in the Emergency Room as telemetry overflow last night and thus far 2 sets of cardiac enzymes are negative with his most recent set having been resulted at 8:10 a.m. He had recently received morphine for neck pain and atypical chest pain, which was not the same pain that he was taking his nitroglycerins for at home. PAST MEDICAL HISTORY: 1. Chronic coronary heart disease with multiple stents having taken place at several institutions. All of his old records are not available for review at this time, but he states that he received complex interventions at [facility], [facility], and [facility] in the past. His most recent cardiac catheterization took place apparently in 2011 and revealed patent stents. We know that he had multiple complex interventions in his right coronary artery territory. The patient, however, also gives a history of having blockages in other vessels and also having received thrombolytic therapy for myocardial infarction in the past. 2. Chronic obstructive pulmonary disease with continued everyday cigarette smoking. 3. Bipolar disorder. 4. Type 2 diabetes mellitus. 5. Gastroesophageal reflux disease. 6. 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 8. History of peptic ulcer. 9. Spinal stenosis in the cervical spine region. PAST SURGICAL HISTORY: 1. Appendectomy. 2. Multiple coronary artery stents. FAMILY HISTORY: Notable for cancer, diabetes, hypertension and lung disease. SOCIAL HISTORY: Current everyday smoker. He lives alone. He is on disability. ALLERGIES: DICLOFENAC WITH RASH. HOME MEDICATIONS: Reviewed, from a cardiac standpoint the patient is on aspirin 81 mg by mouth daily, atenolol 25 mg daily in a.m. and 12.5 mg daily in p.m., warfarin dose adjusted per PT/INR goal of 2-3 sublingual nitroglycerin. Per his last outpatient cardiology note in 2014, he was on clopidogrel at that time as well as amlodipine 1 pill by mouth once a day, and Ranexa 500 mg b.i.d. COMPREHENSIVE REVIEW OF SYSTEMS: PULMONARY: Positive for cough, chronic shortness of breath, wheezing. CARDIOVASCULAR: As noted per HPI. Otherwise a 10-point review of systems was reviewed and is negative. PHYSICAL EXAMINATION: VITAL SIGNS: Temperature 36.8, heart rate 64, blood pressure 115/68. GENERAL APPEARANCE: Awake and oriented x3, no acute distress. ENT: Extraocular muscles were intact. Pupils equal and react to light. NECK: No bruits. No cervical lymphadenopathy. CARDIOVASCULAR: Regular rate. No murmurs, rubs or gallops. PULMONARY: The patient has diffuse expiratory wheezing. ABDOMEN: Positive bowel sounds. Soft, nontender, nondistended. EXTREMITIES: No clubbing, cyanosis or edema. NEUROLOGIC: No focal deficits. DIAGNOSTIC DATA: EKG as noted above. Troponin is negative x2. INR is 1.8. FINAL IMPRESSION: A 61-year-old male. Chest discomfort at rest, with some characteristics suggestive of angina and some characteristics not suggestive of angina. His chest discomfort seems to wax and wane over long intervals of time and is not necessarily associated with exertion and he has multiple other causes for his discomfort including ongoing COPD issues with cough and active wheezing as well as cervical spine pain. DISCUSSION AND RECOMMENDATIONS: Judging by the patient's past medication list, it sounds like he had a longstanding history of recurrent chest discomfort that was ultimately treated with medication. His medication list appears to have changed significantly since he was last seen as an outpatient in 2014, having missed multiple outpatient visits in the interim time. In the past, he was on amlodipine and Ranexa. He is tolerating topical nitroglycerin ointment at the present time, although he did not tolerate isosorbide mononitrate orally in the past due to apparent headache. At the present time, his second Troponin is negative and I am going to advance his diet. A resting echocardiogram will be ordered. I discussed options of stress testing with the patient. The patient does have some concerns that stress testing perhaps did not brain picker some of his blockages in the past. Further recommendation for his best options for further evaluation for ischemia will be forthcoming after his echocardiogram is available. ADAN
[2016-05-18] MEDS ORDERED: WARFARIN SOD 5 MG TAB PO SCH (16:00)
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
--- NOTE | 2016-05-18 17:02 | Progress Note ---
Internal Med Progress Note Date of Service: May 18, 2016. Provider Documentation: SUBJECTIVE: The patient was seen and examined No more chest pain Complains of SOB with or without exertion Generally better since admission OBJECTIVE: Vital Signs-as noted below Exam: General-No distress at rest Eyes-normal ENT-normal Neck-Supple Lungs-Decreased breath sound bilaterally [id number] and crackles at the bases Heart-Regular,no murmur Abdomen- Benign,no masses,bowel sound present Extremities-Trace edema bilaterally Neuro-AAOx3 Lab data as noted below. ASSESSMENT & PLAN: Chest pain-rule out ACS Initial EKG and Trop-negative Serial Su -unremarkable -Consult cards with h/o multiple stents and index angina -nitro paste q6h and morphine IV PRN -Aspirin,BB and Statin and Nitro on board CAP-atelectasis seen on initial CXR CT chest findings are consistent with possible infiltrate in the RML with mucous plug vs debris. Repeat CT chest in 3 months is recommended. Has been put on Doxy Duoneb q4h Blood and sputum cultures COPD exacerbation Still smoking Not on home O2 Duonebs and Doxy as above Solumedrol 40IV q8h Cont singulair Chronic pain syndrome/fibromyalgia/chronic neck pain- Cont Morphine and [place] for breakthrough as he takes at home Cont gabapentin Consider pain consult as patient states he would like to get off pain meds Atrial fibrillation-rate controlled, currently in sinus rhythm -cont coumadin -trend INR daily while inpatient -cont atenolol for rate control Hypertension-controlled, cont atenolol.\ Biceps tendon rupture-per patient this is one week old. Denies any symptoms now DMII-cont ISS with Lantus, Glycemic pharmacy consult placed PTSD,Bipolar disorder Stopped Celexa one month ago Suicidal thoughts Psychiatry consulted DVT proph-coumadin Full Code Dispo- Awaited Vital Signs: Date Time Temp Pulse Resp B/P Pulse Ox O2 Delivery O2 Flow Rate FiO2 05/18/16 16:16 36.6 63 18 102/49 92 Room Air 05/18/16 15:31 63 20 92 Room Air 05/18/16 13:51 36.5 71 16 119/60 96 05/18/16 13:50 36.5 71 16 96 05/18/16 13:50 36.6 67 20 121/64 94 Room Air 05/18/16 12:17 96 Room Air 05/18/16 11:42 36.5 71 16 119/60 96 Room Air 05/18/16 11:42 96 Room Air 05/18/16 08:56 64 18 115/68 93 Room Air 05/18/16 08:15 68 18 99 Room Air 05/18/16 08:00 36.8 71 18 91/47 94 Room Air 05/18/16 08:00 99 Room Air 05/18/16 07:37 54 05/18/16 06:08 52 05/18/16 02:30 56 18 125/76 99 Room Air 05/18/16 02:07 70 05/18/16 02:00 48 05/18/16 00:23 54 17 107/57 98 Room Air 05/17/16 22:23 36.7 05/17/16 22:23 57 23 105/64 96 Room Air 05/17/16 21:30 60 20 122/68 95 05/17/16 20:49 97 Room Air 05/17/16 20:49 70 16 125/76 98 Room Air 05/17/16 20:49 66 05/17/16 20:47 98 Nasal Cannula Lab Results: Results Past 24 Hours Test 05/17/16 20:18 05/18/16 01:40 05/18/16 02:44 05/18/16 05:21 Range/Units White Blood Count 8.93 8.86 4.8-10.8 K/uL Red Blood Count 4.85 4.53 4.7-6.1 M/uL Hemoglobin 15.7 14.7 14.0-18.0 g/dL Hematocrit 43.6 42.2 42-52 % Mean Corpuscular Volume 89.9 93.2 80-100 fL Mean Corpuscular Hemoglobin 32.4 32.5 25-34 pg Mean Corpuscular Hemoglobin Concent 36.0 34.8 32-36 g/dl Platelet Count 189 152 130-400 K/uL Mean Platelet Volume 10.8 10.4 7.4-10.4 fL Neutrophils (%) (Auto) 76.9 % Lymphocytes (%) (Auto) 17.1 % Monocytes (%) (Auto) 5.3 % Eosinophils (%) (Auto) 0.3 % Basophils (%) (Auto) 0.2 % Neutrophils # (Auto) 6.86 1.4-6.5 K/uL Lymphocytes # (Auto) 1.53 1.2-3.4 K/uL Monocytes # (Auto) 0.47 0.11-0.59 K/uL Eosinophils # (Auto) 0.03 0-0.5 K/uL Basophils # (Auto) 0.02 0-0.2 K/uL RDW Standard Deviation 40.4 43.3 36.4-46.3 fL RDW Coefficient of Variation 12.4 12.7 11.5-14.5 % Immature Granulocyte % (Auto) 0.2 % Immature Granulocyte # (Auto) 0.02 0.00-0.02 K/uL Prothrombin Time 19.4 20.1 9.0-12.0 SECONDS Prothromb Time International Ratio 1.8 1.8 0.9-1.1 Activated Partial Thromboplast Time 33.6 21.0-31.0 SECONDS Partial Thromboplastin Ratio 1.3 Sodium Level 139 139 136-145 mmol/L Potassium Level 4.4 4.6 3.5-5.1 mmol/L Chloride Level 104 102 98-107 mmol/L Carbon Dioxide Level 24 32 21-32 mmol/L Anion Gap 11.0 5.0 3-11 mmol/L Blood Urea Nitrogen 17 16 7-18 mg/dl Creatinine 0.90 0.86 0.60-1.40 mg/dl Est Creatinine Clear Calc Drug Dose 107.8 112.8 ml/min Estimated GFR () 107.2 109.2 Estimated GFR (Non- 92.5 94.3 BUN/Creatinine Ratio 19.3 18.5 10-20 Random Glucose 168 144 70-99 mg/dl Calcium Level 9.3 8.6 8.5-10.1 mg/dl Total Creatine Kinase 218 172 39-308 U/L Creatine Kinase MB 5.9 5.3 0.5-3.6 ng/ml Creatine Kinase MB Ratio 2.7 3.1 0-3.0 Troponin I < 0.015 < 0.015 0-0.045 ng/ml Bedside Glucose 94 70-99 mg/dl Magnesium Level 2.3 1.8-2.4 mg/dl Triglycerides Level 103 0-150 mg/dl Cholesterol Level 158 0-200 mg/dl HDL Cholesterol 33 mg/dl LDL Cholesterol, Calculated 104 mg/dl VLDL Cholesterol, Calculated 21 mg/dl Cholesterol/HDL Ratio 4.8 Test 2/22/17 07:17 05/18/16 07:55 05/18/16 08:10 05/18/16 10:29 Range/Units Bedside Glucose 174 233 70-99 mg/dl Influenza Type A (RT-PCR) Neg for Influ A NEG Influenza Type B (RT-PCR) Neg for Influ B NEG Total Creatine Kinase 151 39-308 U/L Creatine Kinase MB 4.8 0.5-3.6 ng/ml Creatine Kinase MB Ratio 3.2 0-3.0 Troponin I < 0.015 0-0.045 ng/ml Test 05/18/16 16:19 Range/Units Bedside Glucose 221 70-99 mg/dl Microbiology Results 05/18/16 Blood Culture, Received Pending 05/18/16 Blood Culture, Received Pending
[2016-05-18] MEDS: WARFARIN SOD 7.5 MG TAB PO SCH (17:33)
[2016-05-18] MEDS: HYDROCODONE/ACETAMI 10/325 TAB PO PRN (17:44)
--- NOTE | 2016-05-18 19:15 | ECHOCARDIOGRAM REPORT ---
*NOTICE TO RECEIVING DEMOCRAT AGENCY This information is strictly Confidential and protected under [place] law. [place] law prohibits you from making any further disclosure of this information unless further disclosure is expressly permitted by the written consent of the person to whom it pertains or is authorized by law. A general authorization for the release of medical or other information is not sufficient for this purpose. Hospital accepts no responsibility if the information is made available to any other person, INCLUDING THE PATIENT. Interpretation Summary * : TRUDY PEREZ JR Study Date: 05/18/2016 02:40 PM BP: 115/68 mmHg * Patient Location: C.EDINP\S\EDINP 1\S\10 HR: 64 * : 1955 (M/d/yyyy) Gender: Male Height: 71 in * Age: 61 yrs Ethnicity: [place] Weight: 232 lb * Ordering Physician: Cedric Ayoub * Referring Physician: Self, Referred * Performed By: Yulissa Welch RCS * * Reason For Study: CHEST PAIN * BSA: 2.2 m2 * The study was technically adequate. * -- Conclusions -- * The basal inferior wall is thinned and akinetic. * The basal and mid posterior wall is thinned and hypokinetic. * The mid lateral wall is hypokinetic. * Left ventricular systolic function is low normal. * Ejection Fraction = 50-55%. * The right ventricle is normal in size and function. * There is mild mitral regurgitation. * Diastolic dysfunction, Grade II (pseudonormalization pattern). * Compared to the prior study dated 02/03/15, there has been no significant interval change. Procedure Details * A complete two-dimensional transthoracic echocardiogram was performed (2D, M-mode, Doppler and color flow Doppler). Left Ventricle * The left ventricle is normal in size. * There is normal left ventricular wall thickness. * Left ventricular systolic function is low normal. * Ejection Fraction = 50-55%. * The basal inferior wall is thinned and akinetic. The basal and mid posterior wall is thinned and hypokinetic. The mid lateral wall is hypokinetic. Right Ventricle * The right ventricle is normal in size and function. Atria * The left atrium is mildly dilated. * Right atrial size is normal. * There is no evidence of atrial septal defect, but resolution does not allow assessment for a patent foramen ovale. Mitral Valve * The mitral valve is normal. * There is no mitral valve stenosis. * There is mild mitral regurgitation. Tricuspid Valve * The tricuspid valve is normal. * There is no tricuspid stenosis. * Significant tricuspid regurgitation is absent. * Doppler findings do not suggest pulmonary hypertension. Aortic Valve * The aortic valve is trileaflet. * Aortic stenosis is absent. * There is no significant aortic regurgitation. Pulmonic Valve * The pulmonary valve is not well seen, but the Doppler examination is normal without significant regurgitation or stenosis. Great Vessels * The aortic root and proximal ascending aorta are normal sized. Pericardium/Pleural * There is no pericardial effusion. Great Vessels * Normal inferior vena cava diameter and respiratory variation suggests normal central venous pressure. * Normal inferior vena cava size and collapsability with sniff indicates a normal right atrial pressure of 3 mmHg Left Ventricular Diastolic Function * Diastolic dysfunction, Grade II (pseudonormalization pattern). MMode 2D Measurements and Calculations IVSd 1.1 cm IVSs 1.3 cm LVIDd 6.4 cm LVIDs 4.6 cm LVPWd 1.1 cm LVPWs 1.3 cm IVS/LVPW 1.0 FS 27.3 % EDV(Teich) 206.2 ml ESV(Teich) 98.9 ml EF(Teich) 52.0 % EDV(cubed) 258.3 ml ESV(cubed) 99.3 ml EF(cubed) 61.5 % % IVS thick 15.7 % % LVPW thick 21.1 % LV mass(C)d 301.9 grams LV mass(C)dI 134.4 grams/m\S\2 LV mass(C)s 227.1 grams LV mass(C)sI 101.1 grams/m\S\2 CO(Teich) 6.5 l/min CI(Teich) 2.9 l/min/m\S\2 SV(Teich) 107.3 ml SI(Teich) 47.8 ml/m\S\2 CO(cubed) 9.7 l/min CI(cubed) 4.3 l/min/m\S\2 SV(cubed) 159.0 ml SI(cubed) 70.8 ml/m\S\2 Ao root diam 4.2 cm Ao root area 13.6 cm\S\2 ACS 1.8 cm LA dimension 4.0 cm LA/Ao 0.95 LVAd ap4 43.6 cm\S\2 LVLd ap4 9.2 cm EDV(MOD-sp4) 171.0 ml LVAs ap4 23.3 cm\S\2 LVLs ap4 7.9 cm ESV(MOD-sp4) 59.0 ml EF(MOD-sp4) 65.5 % LVAd ap2 38.4 cm\S\2 LVLd ap2 9.3 cm EDV(MOD-sp2) 132.0 ml LVAs ap2 23.1 cm\S\2 LVLs ap2 7.8 cm ESV(MOD-sp2) 57.0 ml EF(MOD-sp2) 56.8 % CO(MOD-sp4) 6.8 l/min CI(MOD-sp4) 3.0 l/min/m\S\2 SV(MOD-sp4) 112.0 ml SI(MOD-sp4) 49.9 ml/m\S\2 CO(MOD-sp2) 4.6 l/min CI(MOD-sp2) 2.0 l/min/m\S\2 SV(MOD-sp2) 75.0 ml SI(MOD-sp2) 33.4 ml/m\S\2 Doppler Measurements and Calculations MV E max mj 106.6 cm/sec MV A max mj 88.4 cm/sec MV E/A 1.2 MV P1/2t max mj 126.4 cm/sec MV P1/2t 77.5 msec MVA(P1/2t) 2.8 cm\S\2 MV dec slope 477.8 cm/sec\S\2 MV dec time 0.22 sec Ao V2 max 127.0 cm/sec Ao max PG 6.5 mmHg Ao max PG (full) 1.6 mmHg LV V1 max PG 4.9 mmHg LV V1 max 110.6 cm/sec PA V2 max 119.3 cm/sec PA max PG 5.7 mmHg TR max mj 203.3 cm/sec
[2016-05-18] MEDS: MONTELUKAST SOD 10 MG TAB PO SCH (20:07)
[2016-05-18] MEDS: INSULIN GLARGINE SOLOSTAR 100 UNITS/ML 3 ML PEN SC SCH (20:30)
[2016-05-19] VITALS (12 sets, daily range): BP systolic 111–139; BP diastolic 59–72; PULSE 61–74; TEMP 36.7–36.9; O2SAT 93–98; Ht 180.3 cm; Wt 94.6 kg
[2016-05-19] MEDS: METHYLPREDNISOLONE IV 40 MG in SYRINGE 0 ML IV SCH ×3 (02:06→18:02)
[2016-05-19] MEDS: DOXYCYCLINE IV 100 MG in DEXTROSE 5% 100ML 100 ML IV SCH ×2 (02:07→14:32)
[2016-05-19] MEDS: LORAZEPAM 1 MG TAB PO PRN ×2 (03:56→12:33)
[2016-05-19] MEDS: HYDROCODONE/ACETAMI 10/325 TAB PO PRN ×2 (03:56→09:34)
[2016-05-19] MEDS: ALBUT/IPRATROP 3MG/0.5MG NEB 3 ML VIAL INH SCH ×6 (03:56→23:51)
[2016-05-19] MEDS: NITROGLYCERIN OINT 2% 1GM PACKET EXT SCH ×2 (04:19→11:03)
[2016-05-19 06:21] LABS: HEMATOCRIT 40.2 % (42-52); MEAN CORPUSCULAR HEMOGLOBIN 31.2 pg (25-34); MEAN CORPUSCULAR HGB CONC 34.3 g/dl (32-36); MEAN PLATELET VOLUME 10.3 fL (7.4-10.4); PLATELET COUNT 158 K/uL (130-400); RED BLOOD COUNT 4.42 M/uL (4.7-6.1); WHITE BLOOD COUNT 16.01 K/uL (4.8-10.8)
[2016-05-19 06:28] LABS: ESTIMATED AVERAGE GLUCOSE 174 mg/dl; HA1C FLAG Normal (Normal)
[2016-05-19 06:38] LABS: INR 1.6 (0.9-1.1); PROTHROMBIN TIME (PATIENT) 17.3 SECONDS (9.0-12.0)
[2016-05-19 06:45] LABS: BUN/CREATININE RATIO 23.1 (10-20); CALCIUM 8.6 mg/dl (8.5-10.1); CREATININE 0.86 mg/dl (0.60-1.40); POTASSIUM 4.8 mmol/L (3.5-5.1)
[2016-05-19] MEDS: INSULIN ASPART 100 UNITS/ML 3 ML PEN SC SCH ×4 (07:00→21:57)
[2016-05-19] MEDS: MoRPHine SULFATE CR 15 MG TAB (MS CONTIN) PO SCH ×3 (07:48→22:09)
[2016-05-19] MEDS: PANTOprazole SOD 40 MG TAB PO SCH (07:49)
[2016-05-19] MEDS: METHOCARBAMOL 750 MG TAB PO PRN (07:50)
[2016-05-19] MEDS: MULTIVITAMIN TAB PO SCH (07:50)
[2016-05-19] MEDS: GABAPENTIN 300 MG CAP PO SCH ×2 (07:52→21:58)
[2016-05-19] MEDS: POTASSIUM CHLORIDE 20 MEQ TABCR PO SCH (07:53)
[2016-05-19] MEDS: ASPIRIN 81 MG ECTAB PO SCH (07:56)
[2016-05-19] MEDS: AMLODIPINE BESYLATE 5 MG TAB PO SCH (07:56)
[2016-05-19] MEDS: FLUTICASONE PROPIONATE NA SPR 16 GM BTL NAE SCH (07:57)
--- NOTE | 2016-05-19 08:27 | Pharmacy Progress Note ---
Glycemic Control: Progress Nt Date of Service May 19, 2016. Scope Glycemic Pharmacist consulted by on 05/18/16 for glycemic control and to write orders per [facility] inpatient glycemic control protocol. Objective Accuchecks BSG (last 24hrs): Test 05/18/16 10:29 05/18/16 16:19 05/18/16 20:17 05/19/16 05:58 Bedside Glucose 233 mg/dl (70-99) 221 mg/dl (70-99) 204 mg/dl (70-99) Random Glucose 207 mg/dl (70-99) Test 05/19/16 06:21 Bedside Glucose 239 mg/dl (70-99) Laboratory Data (last 24hrs) Test 05/19/16 05:58 Anion Gap 7.0 mmol/L BUN/Creatinine Ratio 23.1 Blood Urea Nitrogen 20 mg/dl Creatinine 0.86 mg/dl Hemoglobin A1c 7.7 % Potassium Level 4.8 mmol/L Sodium Level 141 mmol/L White Blood Count 16.01 K/uL HbA1c: Test 05/19/16 05:58 Hemoglobin A1c 7.7 % (4.5-5.6) H Recent Pertinent Medications Outpatient Anti-diabetic Regimen: * Lantus 20 units SQ AM + 10 units SQ PM * Humalog 8/10 units with breakfast/lunch/dinner respectively * Total daily dose ~ 56 units/day * Also, maintained on prednisone 5mg daily Assessment & Plan ASSESSMENT: 05/18/16: * 61yo T2DM male well known to pharmacy from previous admissions/glycemic consults. * Degree of outpatient control is unknown - A1c pending for tomorrow. Last reported A1c was 8% in June of 2015. Since then, additional dose of Lantus has been added at bedtime so expect A1c to be closer to goal range * Pt with risk factors for insulin resistance/hyperglycemia including: high dose RTC IV steroids, infection/illness, diet * Will utilize weight based dosing of basal insulin which is similar to outpatient dosing and aggressive CF/CR for steroid induced hyperglycemia. * Will use "BSG range" based basal insulin dosing to prevent hypoglycemia when steroids tapered. * ADA & AACE recommend a goal blood sugar range 140-180 mg/dl for the majority of critically ill & non-critically ill patients. However, more stringent targets may be selected in individual cases. Will utilize more stringent goal range of 110-140mg/dl based on age/co-morbidities. 05/19/16: * BSGs remain moderately elevated > 200 mg/dl all the time. * Pt NPO for possible cath procedure today. * Pt remains on solu-medrol 40mg IV [id number]. * No changes to Lantus dosing despite NPO status. Current Lantus dosing necessary to combat steroid induced hyperglycemia. * Will tighten Novolog parameters to improve postprandial coverage of BSGs throughout the day. PLAN FOR INPATIENT GLYCEMIC CONTROL: * CONTINUE: Basal insulin with Lantus SQ BID- dosing based on BSG and degree of hyperglycemia * If BSG 110mg/dl or below --> do not give Lantus * If BSG 111-180mg/dl --> Give 15 units of Lantus * If BSG 181mg/dl or above --> Give 20 units of Lantus * TIGHTEN: Correctional Insulin with NOVOLOG per scale ACHS or Q6hrs while NPO * Goal Range: Low 110 mg/dL - High 140 mg/dL * Correction Factor: 15 mg/dL/unit * Nutritional / Prandial insulin per carb ratio of 1 unit per 5 grams CHO consumed * Please note that the plan above was derived based on current level of insulin resistance and hospital stress. These recommendations are appropriate for inpatient admission only. Plan of care upon discharge will need to be reassessed to avoid potential outpatient hypo/hyperglycemia. Thank you.
[2016-05-19] MEDS: INSULIN GLARGINE SOLOSTAR 100 UNITS/ML 3 ML PEN SC SCH ×2 (09:00→21:57)
[2016-05-19] MEDS ORDERED: CITALOPRAM 20 MG TAB PO ONE (09:41)
[2016-05-19] MEDS: MoRPHine SULFATE 2 MG/ML CARP IV PRN ×2 (11:20→18:09)
--- NOTE | 2016-05-19 11:55 | Progress Note ---
Internal Med Progress Note Date of Service: May 19, 2016. Provider Documentation: SUBJECTIVE: The patient was seen and examined No more chest pain Complains of moderate to severe pain in neck Used to see Dr Bella for that OBJECTIVE: Vital Signs-as noted below Exam: General-No distress at rest except some pain in neck Eyes-normal ENT-normal Neck-Supple Lungs-Decreased breath sound bilaterally Minimal Wheezing and crackles at the bases Heart-Regular,no murmur Abdomen- Benign,no masses,bowel sound present Extremities-Trace edema bilaterally Neuro-AAOx3 Lab data as noted below. ASSESSMENT & PLAN: Chest pain-rule out ACS Initial EKG and Trop-negative Serial Su -unremarkable -Consult cards with h/o multiple stents and index angina -nitro paste q6h and morphine IV PRN -Aspirin,BB and Statin and Nitro on board -ECHO: * The basal inferior wall is thinned and akinetic. * The basal and mid posterior wall is thinned and hypokinetic. * The mid lateral wall is hypokinetic. * Left ventricular systolic function is low normal. * Ejection Fraction = 50-55%. * The right ventricle is normal in size and function. * There is mild mitral regurgitation. * Diastolic dysfunction, Grade II (pseudonormalization pattern). * Compared to the prior study dated 02/03/15, there has been no significant interval change. CAP-atelectasis seen on initial CXR CT chest findings are consistent with possible infiltrate in the RML with mucous plug vs debris. Repeat CT chest in 3 months is recommended. Has been put on Doxy Duoneb q4h Blood culture-Negative COPD exacerbation Still smoking Not on home O2 Duonebs and Doxy as above Solumedrol 40IV q8h Cont singulair Clinically much better Chronic pain syndrome/fibromyalgia/chronic neck pain- Cont Morphine and [place] for breakthrough as he takes at home Cont gabapentin Consider pain consult as patient states he would like to get off pain meds Increasing neck pain Pain therapy consulted Atrial fibrillation-rate controlled, currently in sinus rhythm -cont Coumadin -trend INR daily while inpatient -cont atenolol for rate control Hypertension-controlled, cont atenolol.\ Biceps tendon rupture-per patient this is one week old. Denies any symptoms now DMII-cont ISS with Lantus, Glycemic pharmacy consult placed PTSD,Bipolar disorder Stopped Celexa one month ago Suicidal thoughts Psychiatry consulted ,appreciate input May need to go for inpatient psychiatry care DVT proph-coumadin INR-1,6 today Full Code Dispo- Awaited Vital Signs: Date Time Temp Pulse Resp B/P Pulse Ox O2 Delivery O2 Flow Rate FiO2 05/19/16 11:38 36.9 62 18 117/70 93 Room Air 05/19/16 10:48 68 16 98 Room Air 05/19/16 07:38 36.8 70 16 138/59 97 Room Air 05/19/16 07:07 68 16 98 Room Air 05/19/16 04:00 Room Air 05/19/16 03:56 68 16 97 Room Air 05/19/16 03:48 36.7 67 17 111/64 97 Room Air 05/18/16 23:59 Room Air 05/18/16 23:17 69 16 98 Room Air 05/18/16 22:52 36.5 67 17 141/77 95 Room Air 05/18/16 20:16 36.7 67 17 144/71 95 Room Air 05/18/16 20:00 69 16 95 Room Air 05/18/16 20:00 95 Room Air 05/18/16 16:16 36.6 63 18 102/49 92 Room Air 05/18/16 16:00 92 Room Air 05/18/16 15:31 63 20 92 Room Air 05/18/16 13:51 36.5 71 16 119/60 96 05/18/16 13:50 36.5 71 16 96 05/18/16 13:50 36.6 67 20 121/64 94 Room Air 05/18/16 12:17 96 Room Air Lab Results: Results Past 24 Hours Test 05/18/16 16:19 05/18/16 20:17 05/19/16 05:54 05/19/16 05:58 Range/Units Bedside Glucose 221 204 70-99 mg/dl Prothrombin Time 17.3 9.0-12.0 SECONDS Prothromb Time International Ratio 1.6 0.9-1.1 White Blood Count 16.01 4.8-10.8 K/uL Red Blood Count 4.42 4.7-6.1 M/uL Hemoglobin 13.8 14.0-18.0 g/dL Hematocrit 40.2 42-52 % Mean Corpuscular Volume 91.0 80-100 fL Mean Corpuscular Hemoglobin 31.2 25-34 pg Mean Corpuscular Hemoglobin Concent 34.3 32-36 g/dl RDW Standard Deviation 41.8 36.4-46.3 fL RDW Coefficient of Variation 12.6 11.5-14.5 % Platelet Count 158 130-400 K/uL Mean Platelet Volume 10.3 7.4-10.4 fL Sodium Level 141 136-145 mmol/L Potassium Level 4.8 3.5-5.1 mmol/L Chloride Level 106 98-107 mmol/L Carbon Dioxide Level 28 21-32 mmol/L Anion Gap 7.0 3-11 mmol/L Blood Urea Nitrogen 20 7-18 mg/dl Creatinine 0.86 0.60-1.40 mg/dl Est Creatinine Clear Calc Drug Dose 112.8 ml/min Estimated GFR () 109.2 Estimated GFR (Non- 94.3 BUN/Creatinine Ratio 23.1 10-20 Random Glucose 207 70-99 mg/dl Estimated Average Glucose 174 mg/dl Hemoglobin A1c 7.7 4.5-5.6 % Calcium Level 8.6 8.5-10.1 mg/dl Test 05/19/16 06:21 05/19/16 11:22 Range/Units Bedside Glucose 239 148 70-99 mg/dl
--- NOTE | 2016-05-19 14:41 | Cardiology Follow-Up ---
Subjective General Date of Service: May 19, 2016. Chief Complaint: follow up chest pain Pt evaluation today including: conversation w/ patient, physical exam History of Present Illness The patient is a 61 year old male seen in follow up. Patient with continue chronic pains including chronic neck arthritis discomfort. Still wheezing and notes his "lungs are tight". Mild chest discomfort still comes and goes, usually with his cervical spine pain. Allergies Coded Allergies: Diclofenac (Verified Adverse Reaction, Unknown, RASH WITH JOINT SWELLING- CAN TAKE ASPIRIN, 03/18/16) Social History Smoking Status: Current Every Day Smoker Hx Tobacco Use In Past Year?: Yes Hx Alcohol Use - Type And Amou: No Hx Substance Use - Type And Am: No Physical Exam Vital Signs Last Vital Signs Documentation Date Time Temp Pulse Resp B/P Pulse Ox O2 Delivery O2 Flow Rate FiO2 05/19/16 11:38 36.9 62 18 117/70 93 Room Air Physical Exam Constitutional: Level of Distress: NAD Neck: supple Lungs: Auscultation: expiratory wheezing Cardiovascular: Heart Auscultation: RRR, no murmurs, no rubs Extremities: no edema Assessment and Plan Assessment and Plan Impression: 1. Chest pain, negative EKGs, negative troponin with history of chronic stable angina, managed medically. 2. Statin intolerance. 3. AECOPD, with wheezing 4. Chronic C-spine , musculoskeletal pain syndrome Plan: Pt with difficulty with medication tolerance and adherence. He has not been on many of his past cardiac medication due to concerns of side effects. He states he does not tolerate statins due to pains. Also states did not tolerate Zetia in the past. Continue ASA, coumadin, atenolol. Amlodipine re-started yesterday (was on 10 mg in past) now on 2.5 mg. Recommend continue medical management of chronic chest discomfort. Laboratory Results Last 24 Hours Test 05/18/16 16:19 05/18/16 20:17 05/19/16 05:54 05/19/16 05:58 Bedside Glucose 221 mg/dl 204 mg/dl Prothrombin Time 17.3 SECONDS Prothromb Time International Ratio 1.6 White Blood Count 16.01 K/uL Red Blood Count 4.42 M/uL Hemoglobin 13.8 g/dL Hematocrit 40.2 % Mean Corpuscular Volume 91.0 fL Mean Corpuscular Hemoglobin 31.2 pg Mean Corpuscular Hemoglobin Concent 34.3 g/dl RDW Standard Deviation 41.8 fL RDW Coefficient of Variation 12.6 % Platelet Count 158 K/uL Mean Platelet Volume 10.3 fL Sodium Level 141 mmol/L Potassium Level 4.8 mmol/L Chloride Level 106 mmol/L Carbon Dioxide Level 28 mmol/L Anion Gap 7.0 mmol/L Blood Urea Nitrogen 20 mg/dl Creatinine 0.86 mg/dl Est Creatinine Clear Calc Drug Dose 112.8 ml/min Estimated GFR () 109.2 Estimated GFR (Non- 94.3 BUN/Creatinine Ratio 23.1 Random Glucose 207 mg/dl Estimated Average Glucose 174 mg/dl Hemoglobin A1c 7.7 % Calcium Level 8.6 mg/dl Test 05/19/16 06:21 05/19/16 11:22 Bedside Glucose 239 mg/dl 148 mg/dl
[2016-05-19] MEDS: WARFARIN SOD 7.5 MG TAB PO SCH (16:00)
[2016-05-19] MEDS: MONTELUKAST SOD 10 MG TAB PO SCH (21:58)
[2016-05-19] MEDS: POLYETHYLENE (MIRALAX) 17 GM PACK PO PRN (22:09)
[2016-05-19] MEDS: TEMAZEPAM 15 MG CAP PO PRN (23:37)
[2016-05-20] VITALS (11 sets, daily range): BP systolic 109–138; BP diastolic 50–81; PULSE 52–85; TEMP 36.5–37.1; O2SAT 94–98
[2016-05-20] MEDS: METHYLPREDNISOLONE IV 40 MG in SYRINGE 0 ML IV SCH (02:19)
[2016-05-20] MEDS: DOXYCYCLINE IV 100 MG in DEXTROSE 5% 100ML 100 ML IV SCH (02:19)
[2016-05-20] MEDS: ALBUT/IPRATROP 3MG/0.5MG NEB 3 ML VIAL INH SCH ×6 (03:22→23:31)
[2016-05-20 06:18] LABS: INR 1.9 (0.9-1.1); PROTHROMBIN TIME (PATIENT) 20.5 SECONDS (9.0-12.0)
[2016-05-20] MEDS: ASPIRIN 81 MG ECTAB PO SCH (07:41)
[2016-05-20] MEDS: AMLODIPINE BESYLATE 5 MG TAB PO SCH (07:41)
[2016-05-20] MEDS: HYDROCODONE/ACETAMI 10/325 TAB PO PRN ×2 (07:42→16:46)
[2016-05-20] MEDS: MULTIVITAMIN TAB PO SCH (07:42)
[2016-05-20] MEDS: GABAPENTIN 300 MG CAP PO SCH ×2 (07:42→20:44)
[2016-05-20] MEDS: PANTOprazole SOD 40 MG TAB PO SCH (07:43)
[2016-05-20] MEDS: LORAZEPAM 1 MG TAB PO PRN ×2 (07:43→16:45)
[2016-05-20] MEDS: MoRPHine SULFATE CR 15 MG TAB (MS CONTIN) PO SCH ×3 (07:43→20:44)
[2016-05-20] MEDS: POTASSIUM CHLORIDE 20 MEQ TABCR PO SCH (07:43)
[2016-05-20] MEDS: CITALOPRAM 20 MG TAB PO SCH (07:44)
[2016-05-20] MEDS: METHOCARBAMOL 750 MG TAB PO PRN (07:44)
[2016-05-20] MEDS: FLUTICASONE PROPIONATE NA SPR 16 GM BTL NAE SCH (07:44)
[2016-05-20] MEDS: POLYETHYLENE (MIRALAX) 17 GM PACK PO PRN (07:48)
[2016-05-20] MEDS: INSULIN GLARGINE SOLOSTAR 100 UNITS/ML 3 ML PEN SC SCH ×2 (07:50→20:47)
[2016-05-20] MEDS: INSULIN ASPART 100 UNITS/ML 3 ML PEN SC SCH ×4 (07:50→20:46)
--- NOTE | 2016-05-20 10:10 | DIAGNOSTIC IMAGING REPORT ---
CHEST 2 VIEWS ROUTINE CLINICAL HISTORY: pneumonia dyspnea COMPARISON STUDY: 05/17/2016 FINDINGS: Minimal bibasilar atelectasis unchanged. No new or interval finding. Lungs otherwise appear clear. IMPRESSION: Minimal stable bibasilar atelectasis. No new or interval process. Electronically signed by: George Chaudhary M.D. 05/20/2016 10:08 AM Dictated Date/Time: 05/20/2016 10:07 AM
[2016-05-20] MEDS: DOXYCYCLINE HYCLATE 100 MG CAP PO SCH ×2 (10:12→20:44)
--- NOTE | 2016-05-20 10:21 | Pharmacy Progress Note ---
Glycemic Control: Progress Nt Date of Service May 20, 2016. Scope Glycemic Pharmacist consulted by Dr Haddad on 05/18/16 for glycemic control and to write orders per [facility] inpatient glycemic control protocol. Objective Accuchecks BSG (last 24hrs): Test 05/19/16 11:22 05/19/16 16:01 05/19/16 20:45 05/20/16 06:52 Bedside Glucose 148 mg/dl (70-99) 302 mg/dl (70-99) 82 mg/dl (70-99) 208 mg/dl (70-99) HbA1c: Test 05/19/16 05:58 Hemoglobin A1c 7.7 % (4.5-5.6) H Recent Pertinent Medications Outpatient Anti-diabetic Regimen: * Lantus 20 units SQ AM + 10 units SQ PM * Humalog 11/01/09 units with breakfast/lunch/dinner respectively * Total daily dose ~ 56 units/day * Also, maintained on prednisone 5mg daily Risk Factors for Insulin Resistance: * Steroids * Infection * Diet Assessment & Plan ASSESSMENT: 05/18/16: * 61yo T2DM male well known to pharmacy from previous admissions/glycemic consults. * Degree of outpatient control is unknown - A1c pending for tomorrow. Last reported A1c was 8% in June of 2015. Since then, additional dose of Lantus has been added at bedtime so expect A1c to be closer to goal range * Pt with risk factors for insulin resistance/hyperglycemia including: high dose RTC IV steroids, infection/illness, diet * Will utilize weight based dosing of basal insulin which is similar to outpatient dosing and aggressive CF/CR for steroid induced hyperglycemia. * Will use "BSG range" based basal insulin dosing to prevent hypoglycemia when steroids tapered. * ADA & AACE recommend a goal blood sugar range 140-180 mg/dl for the majority of critically ill & non-critically ill patients. However, more stringent targets may be selected in individual cases. Will utilize more stringent goal range of 110-140mg/dl based on age/co-morbidities. 05/19/16: * BSGs remain moderately elevated > 200 mg/dl all the time. * Pt NPO for possible cath procedure today. * Pt remains on solu-medrol 40mg IV [id number]. * No changes to Lantus dosing despite NPO status. Current Lantus dosing necessary to combat steroid induced hyperglycemia. * Will tighten Novolog parameters to improve postprandial coverage of BSGs throughout the day. 05/20/16 * BSGs very up and down over the past 24 hours (239-->148-->302-->85) * Fasting BSG this AM 208 * Steroids changed from IV to PO Prednisone 40 mg starting at 0900 today * BSGs should improve over the next 24 hours with change from IV to PO steroids * Loosen Novolog back to weight-based (stress of 2) starting at dinner * Continue current Lantus scale dosing as BSGs fluctuating too much at this time for me to set a dose PLAN FOR INPATIENT GLYCEMIC CONTROL: * CONTINUE: Basal insulin with Lantus SQ BID- dosing based on BSG and degree of hyperglycemia * If BSG 110mg/dl or below --> do not give Lantus * If BSG 111-180mg/dl --> Give 15 units of Lantus * If BSG 181mg/dl or above --> Give 20 units of Lantus * CHANGE: Correctional Insulin with NOVOLOG per scale ACHS or Q6hrs while NPO * Goal Range: Low 110 mg/dL - High 140 mg/dL * Correction Factor: 20 mg/dL/unit * Nutritional / Prandial insulin per carb ratio of 1 unit per 7 grams CHO consumed * Please note that the plan above was derived based on current level of insulin resistance and hospital stress. These recommendations are appropriate for inpatient admission only. Plan of care upon discharge will need to be reassessed to avoid potential outpatient hypo/hyperglycemia. Thank you.
--- NOTE | 2016-05-20 10:36 | Psychiatric Progress Notes ---
Psychiatric Progress Note Date of Service May 20, 2016. Notes ID: Patient reviewed with liaison nurse. Initial consult by Dr. Mobley dated reviewed. 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 trigger was a recurrent PTSD nightmare about not being able to save a girl. He related his chronic issues with SI and pain following his head injury and also stressors including loss of his home and no where to store family heirlooms. He has been researching residential programs with PTSD but has no service connection and has history of poor compliance with outpatient care and no means to get to an [facility] for care. ROS: cough/chest tightness MSE: alert, cooperative, depressed and anxious. Thoughts coherent. passive SI , is able to state he wants to live for his granddaughter and daughter ( with another grandchild), no HI/morales. No intent or plan to harm self in hospital. Imp: recurrent depression, PTSD by hx--restarted Celexa 20 mg yesterday Plan: limited progress on outpatient providers, patient is unsure wants inpatient treatment if can't stay at [facility], reviewed that it is unlikely he could go directly to a PTSD program from the medical floor. Will reassess ability to safety plan when medically cleared.
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
--- NOTE | 2016-05-20 14:02 | Progress Note ---
Internal Med Progress Note Date of Service: May 20, 2016. Provider Documentation: SUBJECTIVE: The patient was seen and examined No more chest pain Complains of moderate to severe pain in neck Clinically much better except pain in neck OBJECTIVE: Vital Signs-as noted below Exam: General-No distress at rest except some pain in neck Eyes-normal ENT-normal Neck-Supple Lungs-Minimal decrease breath sound bilaterally Minimal Wheezing and crackles at the bases Heart-Regular,no murmur Abdomen- Benign,no masses,bowel sound present Extremities-Trace edema bilaterally Neuro-AAOx3 Lab data as noted below. ASSESSMENT & PLAN: Chest pain-rule out ACS Initial EKG and Trop-negative Serial Su -unremarkable -Consult cards with h/o multiple stents and index angina -nitro paste q6h and morphine IV PRN -Aspirin,BB and Statin and Nitro on board -ECHO: * The basal inferior wall is thinned and akinetic. * The basal and mid posterior wall is thinned and hypokinetic. * The mid lateral wall is hypokinetic. * Left ventricular systolic function is low normal. * Ejection Fraction = 50-55%. * The right ventricle is normal in size and function. * There is mild mitral regurgitation. * Diastolic dysfunction, Grade II (pseudonormalization pattern). * Compared to the prior study dated 02/03/15, there has been no significant interval change. No more cardiac test Remains stable from cardiology point of view CAP-atelectasis seen on initial CXR CT chest findings are consistent with possible infiltrate in the RML with mucous plug vs debris. Repeat CT chest in 3 months is recommended. Has been put on Doxy Duoneb q4h Blood culture-Negative Clinically better Will change antibiotic to oral COPD exacerbation Still smoking Not on home O2 Duonebs and Doxy as above Solumedrol 40IV q8h Cont Singulair Clinically much better Taper steroid Chronic pain syndrome/fibromyalgia/chronic neck pain- Cont Morphine and [place] for breakthrough as he takes at home Cont gabapentin Consider pain consult as patient states he would like to get off pain meds Increasing neck pain Pain therapy consulted-appreciate input Will need OP referral to Spine Surgeon in the setting of [facility] Does not like to go to [facility] Need to set up /referral to [place] Singer at [facility] [place] PTSD,Bipolar disorder Stopped Celexa one month ago Suicidal thoughts Psychiatry consulted ,appreciate input May need to go for inpatient psychiatry care Medically stable to go to Psychiatry floor Atrial fibrillation-rate controlled, currently in sinus rhythm -cont Coumadin -trend INR daily while inpatient -cont atenolol for rate control Hypertension-controlled, cont atenolol.\ Biceps tendon rupture-per patient this is one week old. Denies any symptoms now DMII-cont ISS with Lantus, Glycemic pharmacy consult placed DVT proph-coumadin INR-1,6 today Full Code Dispo- Medically stable Vital Signs: Date Time Temp Pulse Resp B/P Pulse Ox O2 Delivery O2 Flow Rate FiO2 05/20/16 11:16 36.5 55 20 114/60 97 Room Air 05/20/16 11:13 68 16 97 Room Air 05/20/16 08:00 Room Air 05/20/16 07:57 37.1 62 20 128/74 94 Room Air 05/20/16 06:58 85 16 97 Room Air 05/20/16 04:15 36.7 52 17 109/50 94 Room Air 05/20/16 04:00 Room Air 05/20/16 00:04 36.5 64 18 135/71 96 Room Air 05/19/16 23:59 95 Room Air 05/19/16 23:51 72 20 95 Room Air 05/19/16 20:38 36.7 61 20 139/72 95 Room Air 05/19/16 20:00 Room Air 05/19/16 19:05 68 18 97 Room Air 05/19/16 16:09 36.8 74 18 121/63 98 05/19/16 16:00 Room Air 05/19/16 15:30 71 16 98 Room Air Lab Results: Results Past 24 Hours Test 05/19/16 16:01 05/19/16 20:45 05/20/16 05:52 05/20/16 06:52 Range/Units Bedside Glucose 302 82 208 70-99 mg/dl Prothrombin Time 20.5 9.0-12.0 SECONDS Prothromb Time International Ratio 1.9 0.9-1.1 Test 05/20/16 11:15 Range/Units Bedside Glucose 151 70-99 mg/dl Microbiology Results 05/19/16 Gram Stain - Final, Resulted 05/19/16 Sputum Culture, Resulted Pending
--- NOTE | 2016-05-20 15:21 | Cardiology Follow-Up ---
Subjective General Date of Service: May 20, 2016. Chief Complaint: follow up chest pain Pt evaluation today including: conversation w/ patient, physical exam History of Present Illness The patient is a 61 year old male seen in follow up. Continues with neck pain. Chest tightness is associated with cough. Allergies Coded Allergies: Diclofenac (Verified Adverse Reaction, Unknown, RASH WITH JOINT SWELLING- CAN TAKE ASPIRIN, 03/18/16) Social History Smoking Status: Current Every Day Smoker Hx Tobacco Use In Past Year?: Yes Hx Alcohol Use - Type And Amou: No Hx Substance Use - Type And Am: No Physical Exam Vital Signs Last Vital Signs Documentation Date Time Temp Pulse Resp B/P Pulse Ox O2 Delivery O2 Flow Rate FiO2 05/20/16 12:00 Room Air 05/20/16 11:16 36.5 55 20 114/60 97 Physical Exam Constitutional: Level of Distress: NAD Neck: supple Lungs: Auscultation: expiratory wheezing Cardiovascular: Heart Auscultation: RRR, no murmurs, no rubs Extremities: no edema Assessment and Plan Assessment and Plan Impression: 1. Chest pain, negative EKGs, negative troponin with history of chronic stable angina, managed medically. 2. Statin intolerance. 3. AECOPD, with wheezing 4. Chronic C-spine , musculoskeletal pain syndrome Plan: Patient with chronic pain syndrome. I believe his chest pain is related to AECOPD for which his is on appropriate therapy, but still not making much progress. Pt with difficulty with medication tolerance and adherence. He has not been on many of his past cardiac medication due to concerns of side effects. He states he does not tolerate statins due to pains. Also states did not tolerate Zetia in the past. Continue ASA, coumadin, atenolol. Amlodipine re-started this admission (was on 10 mg in past) now on 2.5 mg. Recommend continue medical management of chronic chest discomfort. Laboratory Results Last 24 Hours Test 05/19/16 16:01 05/19/16 20:45 05/20/16 05:52 05/20/16 06:52 Bedside Glucose 302 mg/dl 82 mg/dl 208 mg/dl Prothrombin Time 20.5 SECONDS Prothromb Time International Ratio 1.9 Test 05/20/16 11:15 Bedside Glucose 151 mg/dl
[2016-05-20] MEDS ORDERED: WARFARIN SOD 5 MG TAB PO SCH (16:00)
[2016-05-20] MEDS: MoRPHine SULFATE 2 MG/ML CARP IV PRN (20:41)
[2016-05-20] MEDS: MONTELUKAST SOD 10 MG TAB PO SCH (20:44)
[2016-05-20] MEDS: TEMAZEPAM 15 MG CAP PO PRN (22:09)
[2016-05-21] VITALS (8 sets, daily range): BP systolic 92–128; BP diastolic 52–68; PULSE 52–63; TEMP 36.6–36.8; O2SAT 93–98
[2016-05-21] MEDS: ALBUT/IPRATROP 3MG/0.5MG NEB 3 ML VIAL INH SCH ×4 (03:51→15:26)
[2016-05-21] MEDS: GABAPENTIN 300 MG CAP PO SCH (08:38)
[2016-05-21] MEDS: ASPIRIN 81 MG ECTAB PO SCH (08:38)
[2016-05-21] MEDS: MULTIVITAMIN TAB PO SCH (08:38)
[2016-05-21] MEDS: CITALOPRAM 20 MG TAB PO SCH (08:38)
[2016-05-21] MEDS: AMLODIPINE BESYLATE 5 MG TAB PO SCH (08:38)
[2016-05-21] MEDS: POTASSIUM CHLORIDE 20 MEQ TABCR PO SCH (08:39)
[2016-05-21] MEDS: PANTOprazole SOD 40 MG TAB PO SCH (08:40)
[2016-05-21] MEDS: FLUTICASONE PROPIONATE NA SPR 16 GM BTL NAE SCH (08:40)
[2016-05-21] MEDS: INSULIN GLARGINE SOLOSTAR 100 UNITS/ML 3 ML PEN SC SCH (09:00)
[2016-05-21] MEDS ORDERED: NICOTINE 7 MG/24 HR TDSY TD SCH (09:00)
[2016-05-21] MEDS: DOXYCYCLINE HYCLATE 100 MG CAP PO SCH (09:05)
[2016-05-21] MEDS: INSULIN ASPART 100 UNITS/ML 3 ML PEN SC SCH ×3 (09:14→18:14)
[2016-05-21] MEDS: MoRPHine SULFATE CR 15 MG TAB (MS CONTIN) PO SCH ×2 (09:15→13:16)
[2016-05-21] MEDS: LORAZEPAM 1 MG TAB PO PRN (09:15)
[2016-05-21 10:44] LABS: HEMATOCRIT 38.7 % (42-52); MEAN CELL VOLUME 92.4 fL (80-100); MEAN CORPUSCULAR HEMOGLOBIN 32.5 pg (25-34); MEAN CORPUSCULAR HGB CONC 35.1 g/dl (32-36); MEAN PLATELET VOLUME 10.6 fL (7.4-10.4); PLATELET COUNT 136 K/uL (130-400); RED BLOOD COUNT 4.19 M/uL (4.7-6.1); WHITE BLOOD COUNT 9.23 K/uL (4.8-10.8)
[2016-05-21 11:00] LABS: BUN/CREATININE RATIO 24.6 (10-20); CALCIUM 8.2 mg/dl (8.5-10.1); MAGNESIUM 2.3 mg/dl (1.8-2.4)
[2016-05-21 11:46] LABS: POTASSIUM 3.9 mmol/L (3.5-5.1)
[2016-05-21] MEDS: POLYETHYLENE (MIRALAX) 17 GM PACK PO PRN (12:06)
[2016-05-21] MEDS: METHOCARBAMOL 750 MG TAB PO PRN (13:14)
[2016-05-21] MEDS: WARFARIN SOD 7.5 MG TAB PO SCH (16:29)
[2016-05-21] MEDS: HYDROCODONE/ACETAMI 10/325 TAB PO PRN (16:34)
--- NOTE | 2016-05-21 17:45 | DIAGNOSTIC IMAGING REPORT ---
CT HEAD WITHOUT CONTRAST (CT) CLINICAL HISTORY: Severe headache COMPARISON STUDY: 02/04/2015 TECHNIQUE: Axial CT of the brain is performed from the vertex to the skull base. IV contrast was not administered for this examination. CT DOSE: 810.83 mGy.cm FINDINGS: There is a stable 5 mm hyperdense focus involving the roof the third ventricle anteriorly. This is consistent with a colloid cyst. There is no CT evidence of acute cortical infarction. There is no evidence of midline shift. There is no evidence of pathologic ventricular dilatation. There is no evidence of acute sinusitis IMPRESSION: 1. No acute intracranial findings 2. Stable 5 mm colloid cyst 3. No evidence of hydrocephalus Electronically signed by: Durga Maddox M.D. 05/21/2016 5:43 PM Dictated Date/Time: 05/21/2016 5:41 PM
[2016-05-21] MEDS ORDERED: TNR25 PO (18:36)
[2016-05-21] MEDS ORDERED: NCDT7 TD (18:36)
[2016-05-21] MEDS ORDERED: DXY100 PO (18:36)
[2016-05-21] MEDS ORDERED: PRED10TA PO (18:36)
--- NOTE | 2016-05-21 18:43 | Discharge Instructions ---
Discharge Instructions Admission Reason for Admission: Chest Pain Discharge Discharge Diagnosis / Problem: Atypical chest pain. PTSD. Chronic back pain. Discharge Goals Goal(s): Decrease discomfort Activity Recommendations Activity Level: Up Ad Vania . Additional Information Patient informed of condition: Yes Advance Directives: No DNR: No Level of Care: Other Communicable Disease: No Prognosis: Stable Broderick Catheter: No Instructions / Follow-Up Instructions / Follow-Up Please follow up with Internal Medicine Dr. Crook within one week of discharge from [facility]. Please discuss with Dr. Crook a referral to [facility] for evaluation by a spine surgeon. Current Hospital Diet Patient's current hospital diet: AHA Diet (Heart Healthy), Diabetes Type 2 Diet Discharge Diet Recommended Diet: AHA Diet (Heart Healthy), Diabetes Type 2 Diet Pending Studies Studies pending at discharge: no Laboratory Results Hemoglobin A1c Test 05/19/16 05:58 Range/Units Estimated Average Glucose 174 mg/dl Hemoglobin A1c 7.7 H 4.5-5.6 % Lipid Panel Test 05/18/16 05:21 Range/Units Triglycerides Level 103 0-150 mg/dl Cholesterol Level 158 0-200 mg/dl HDL Cholesterol 33 mg/dl Cholesterol/HDL Ratio 4.8 LDL Cholesterol, Calculated 104 mg/dl Medical Emergencies . Who to Call and When: Medical Emergencies: If at any time you feel your situation is an emergency, please call 911 immediately. . Non-Emergent Contact Non-Emergency issues call your: Primary Care Provider . . "Provider Documentation" section prepared by Ro Crow. Core Measure Problem Core Measures: None [place] Drug Monitoring Program Search Results: patient reviewed within database
--- NOTE | 2016-05-21 18:59 | Discharge Summary ---
Discharge Summary Date of Service May 21, 2016. Discharge Summary Admission Date: May 18, 2016 at 00:15 Discharge Date: May 21, 2016 Discharge Disposition: Acute care [facility] Principal Diagnosis: Atypical chest pain Procedures: CT chest 1. No central or lobar pulmonary emboli. The segmental and subsegmental pulmonary arteries are suboptimally assessed due to suboptimal vascular opacification. 2. Right middle lobe volume loss with mild airspace opacity. Severe narrowing at the origin the right middle lobe bronchus with multifocal occlusion of segmental bronchi within the right middle lobe, possibly due to mucoid impaction or debris. The findings favor atelectasis although pneumonia could appear similar. No definite mass identified however a follow-up CT of the chest in 3 months is recommended to exclude a central obstructing lesion. 3. Extensive coronary artery calcification and mild cardiomegaly. CT head 1. No acute intracranial findings 2. Stable 5 mm colloid cyst 3. No evidence of hydrocephalus TTE * The basal inferior wall is thinned and akinetic. * The basal and mid posterior wall is thinned and hypokinetic. * The mid lateral wall is hypokinetic. * Left ventricular systolic function is low normal. * Ejection Fraction = 50-55%. * The right ventricle is normal in size and function. * There is mild mitral regurgitation. * Diastolic dysfunction, Grade II (pseudonormalization pattern). * Compared to the prior study dated 02/03/15, there has been no significant interval change. Consultations: Cardiology Psychiatry Pain management Pending Studies/Follow-Up: 3 month f/u CT chest Medication Reconciliation New Medications: Prednisone Tab (Prednisone) 10 Mg Tab 10 MG PO UD for 30 Days, TAB Start 05/22. Take 4tab daily x2days. Then 3tab daily x4 days. Then 2tab daily x4days. Then 1tab daily x4days. Then 0.5tab daily. Doxycycline Hyclate (Doxycycline Hyclate) 100 Mg Cap 100 MG PO BID for 7 Days, #14 CAP Nicotine (Nicotine) 1 Patch Tdsy 1 PATCH TD QAM for 30 Days Changed Medications: Atenolol (Atenolol) 25 Mg Tab 12.5 MG PO QAM for 30 Days (Changed from: 25 MG) Continued Medications: Albuterol (Ventolin Hfa) 60 Puffs/5400 Mcg Aers 2 PUFFS INH QID PRN for SOB/Wheezing Aspirin (Aspirin Ec) 81 Mg Tab 81 MG PO DAILY Pdoejjv-Plfyjlvwc-Fmnl (Calcium Magnesium & Zinc) 1 Tab Tab 1 TAB PO DAILY Citalopram Hydrobromide (Celexa) 20 Mg Tab 20 MG PO DAILY, TAB Coenzyme Q10 (Ubidecarenone) (Co Q-10) 200 Mg Cap 200 MG PO TID Fluticasone Prop/Salmeterol (Advair Diskus 500/50 60 Dose) 1 Ea Aerp 1 PUFF INH BID RINSE MOUTH AFTER USE Fluticasone Propionate (Nasal) (Flonase Allergy Relief) 50 Mcg/Act Spr 2 SPRAYS ÁNGELA DAILY Gabapentin (Neurontin) 300 Mg Cap 300 MG PO BID, CAP Hydrocodone/Acetaminophen 10MG/325MG ([place] 10MG/325MG) Tab 1 TAB PO BID PRN for Pain, TAB Insulin Glargine (Lantus Solostar) 100 Unit/Ml Inj 10 UNITS PO QPM, PEN Insulin Glargine (Lantus Solostar) 100 Unit/Ml Inj 20 UNITS SC QAM, PEN Insulin Lispro (Human) (Humalog Kwikpen) 100 Unit/Ml Inj 8 UNITS SC BREAKFAST CORRECTION FACTOR 1:40 OVER 160. Insulin Lispro (Human) (Humalog Kwikpen) 100 Unit/Ml Inj 8 UNITS SC MIDDAY SNACKS CORRECTION FACTOR 1:40 OVER 160. Insulin Lispro (Human) (Humalog Kwikpen) 100 Unit/Ml Inj 10 UNITS SC SUPPER CORRECTION FACTOR 1:40 OVER 160. Ipratropium-Albuterol (Duoneb) 3 Ml Nebu 1 TREATMENT INH Q6H PRN for SOB/Wheezing Lorazepam (Lorazepam) 1 Mg Tab 1 MG PO Q8 PRN for Anxiety/Agitation Methocarbamol (Methocarbamol) 750 Mg Tab 750 MG PO DAILY PRN for Muscle Pain Montelukast Sod (Montelukast Sodium) 10 Mg Tab 10 MG PO QAM Morphine Sulfate (Morphine Sulfate Cr) 15 Mg Tab 15 MG PO TID Multiple Vitamin (Multivitamin) 1 Tab Tab 1 TABLET PO DAILY Nitroglycerin (Nitrostat) 0.4 Mg Tab 0.4 MG UT UD PRN for Chest Pain PLACE ONE TABLET UNDER THE TONGUE EVERY 5 MINUTES FOR UP TO 3 DOSES IF NEEDED FOR CHEST PAIN Pantoprazole (Protonix) 40 Mg Tab 40 MG PO DAILY, TAB Polyethylene Glycol 3350 (Miralax) 1 Pow Pow 17 GM PO DAILY PRN for Severe Constipation, GM MIX IN 8 OUNCES OF WATER OR JUICE Potassium Chloride Microencaps (Potassium Chloride Er) 20 Meq Tab 20 MEQ PO DAILY Probiotic Product (Probiotic) 1 Tab Tab 1 TAB PO DAILY Temazepam (Restoril) 30 Mg Cap 30 MG PO HS PRN for Sleep Warfarin Sod (Coumadin) 5 Mg Tab 10 MG PO 2XWK TAKE 10 MG EVERY MONDAY AND MONDAY OR OTHERWISE DIRECTED TO TAKE BY ANTICOAGULATION CLINIC/MD Warfarin Sodium (Warfarin Sodium) 2.5 Mg Tab 2.5 MG PO 5XWK TAKE ONE 2.5 MG TABLET ALONG WITH ONE 5 MG TABLET TO EQUAL DAILY DOSE OF 7.5 MG EVERY MONDAY,MONDAY,MONDAY,MONDAY AND MONDAY OR OTHERWISE DIRECTED TO TAKE BY ANTICOAGULATION CLINIC/MD. Warfarin Sodium (Warfarin Sodium) 5 Mg Tab 5 MG PO 5XWK TAKE ONE 5 MG TABLET ALONG WITH ONE 2.5 MG TABLET TO EQUAL DAILY DOSE OF 7.5 MG EVERY MONDAY,MONDAY,MONDAY,MONDAY AND MONDAY OR OTHERWISE DIRECTED TO TAKE BY ANTICOAGULATION CLINIC/MD. Discontinued Medications: Atenolol (Atenolol) 25 Mg Tab 12.5 MG PO QPM Ipratropium-Albuterol (Duoneb) 3 Ml Nebu 1 TREATMENT INH BID, INHA Prednisone (Prednisone) 10 Mg Tab 5 MG PO DAILY Admission Information HPI (per Admitting provider): 61 yoM with h/o CAD s/p multiple stents along with chronic pain syndrome presents with worsening chest pain over the last three days. He states that back in Feb he developed a respiratory infection that wouldn't go away despite three rounds of antibiotics, the last round reportedly one month ago. He still has a nonproductive cough and some chills recently and reports an overall worsening of generalized weakness, chest pain at rest (similar to index angina) , worsening of chronic neck and body pain, worsening of shortness of breath (is exhausted and working to breathe after taking a shower or climbing stairs when normal at baseline) all within the last few days. He reports the chest pain is dull and "all over with radiation to the back of my neck" and was associated with sweating and SOB. He reports that his pain is currently gone after nitro was given in the ER, and it came on while at home watching television today around 3 pm. He noted intermittent chest pain over the last three days as well , but didn't specify the events surrounding these episodes. He did say he took nitro and the pain resolved. ROS also reveals headaches, multiple chronic tendonopathies including a recent L biceps tear, issues with PTSD for which he would like to speak with someone, chronic generalized pain, and legs feeling heavy like lead, falls at home without loss of consciousness 2/2 lightheadedness and dizziness about one month ago. He denies sore throat, fevers, abdominal pain, nausea, vomiting, palpitations, blood per rectum. He does not report any stroke-like symptoms. He states that he got a severe pneumonia last year around the same time for which he was hospitalized and required multiple IV medications and a few days to get over. He states that with each round of abx with this illness, he has almost felt better and then gotten worse. He states that he takes breathing treatments at home via nebulizer but recently ran out so is using his albuterol inhaler which seems to help. He reports last seeing a merchandise flow team leader one year ago while he was in the hospital. Physical Exam (per Admitting): GEN: WNWD, in no acute distress, alert and appropriate, no accessory muscle use or tachypnea. HEENT: NC/AT, PERRL, normal sclerae, EOMI CARDIO: reg rate, S1/2 heard without m/g/r, no chest wall TTP and skin is clear LUNGS: wheezes and rhonchi throughout all lung otoole, good diaphragmatic excursion, some coughing with deep breathing ABD: soft, non-tender, non-distended, no rebound or guarding, +BS EXTREMITY: RP and DP palpable 2+ bilat, no LE swelling or edema, extremities are warm and well-perfused L biceps appears torn, no bruising, apparently normal ROM NEURO: CN 2-12 grossly intact, sensation intact throughout, coordination intact (finger-to nose, Julito, [id number]) (reflexes) knee 2+ bilat MUSC: 5/5 strength throughout, no focal deficits SKIN: warm and dry, no rashes or lesions evident Hospital Course Patient was admitted with chest pain. Cardiology was consulted. ACS r/o was negative. TTE was unchanged from previous one done in January 2016. Patient was continued on aspirin. Cardiology felt that likely patient's symptoms were related to his underlying COPD than cardiac in nature. Patient does have a h/o atrial fibrillation. The majority of atenolol doses were held due to intermittent bradycardia. Patient had been started on amlodipine, but this was not continued due to low-normal blood pressures. Ultimately, patient was discharged on a lowered dose of atenolol, as well as warfarin. Patient was treated for possible pneumonia vs bronchitis, and COPD exacerbation. Patient was started on doxycycline and methylprednisolone. Methylprednisolone was transitioned to prednisone, with instructions for a prednisone taper upon discharge. Patient was also continued on Advair, and Albuterol and duo-nebs as needed. CT chest was negative for PE, but did show mild airspace opacity of the right middle lobe with narrowing at the origin of the right middle lobe bronchus, possibly due to mucoid impaction or debris; these findings favored atelectasis. A repeat CT chest in 3 months is recommended. Patient was started on a nicotine patch is he is an active smoker. Patient has a h/o chronic back/neck pain. He was continued on his outpatient regimen of morphine and [place]. [place] drug prescription monitoring database was reviewed. Pain management was consulted and recommended outpatient repeat MRI of the cervical and lumbar spine, as well as repeat a spine surgical evaluation. Glycemic pharmacy aided with glucose control while inpatient. Patient was resumed on home regimen upon discharge from medical floor, realizing that patient may have elevated glucoses for the next several days while continuing on a prednisone taper. Psychiatry was consulted for PTSD, bipolar disorder. Celexa was restarted. Patient met criteria for inpatient psychiatry admission and was thus discharged to inpatient mental health when medically stable. PE on discharge: General- awake; alert; NAD Eyes- EOMI; no scleral icterus Neck- no stridor; trachea midline Lungs- coarse breath sounds; no wheezes/crackles; good air movement Heart- RRR; no m/r/g Abdomen- soft; NTND; nBS Back- no gross abnormalities Extremities- no c/c/e; no deformity Neuro- no gross focal deficits Skin- no appreciable rash or bruise . Total time spent on discharge = This includes examination of the patient, discharge planning, medication reconciliation, and communication with other providers. Discharge Instructions Discharge Instructions Admission Reason for Admission: Chest Pain Discharge Discharge Diagnosis / Problem: Atypical chest pain. PTSD. Chronic back pain. Discharge Goals Goal(s): Decrease discomfort Activity Recommendations Activity Level: Up Ad Vania . Additional Information Patient informed of condition: Yes Advance Directives: No DNR: No Level of Care: Other Communicable Disease: No Prognosis: Stable Broderick Catheter: No Instructions / Follow-Up Instructions / Follow-Up Please follow up with Internal Medicine Dr. Crook within one week of discharge from [facility]. Please discuss with Dr. Crook a referral to [facility] for evaluation by a spine surgeon. Current Hospital Diet Patient's current hospital diet: AHA Diet (Heart Healthy), Diabetes Type 2 Diet Discharge Diet Recommended Diet: AHA Diet (Heart Healthy), Diabetes Type 2 Diet Pending Studies Studies pending at discharge: no Laboratory Results Hemoglobin A1c Test 05/19/16 05:58 Range/Units Estimated Average Glucose 174 mg/dl Hemoglobin A1c 7.7 H 4.5-5.6 % Lipid Panel Test 05/18/16 05:21 Range/Units Triglycerides Level 103 0-150 mg/dl Cholesterol Level 158 0-200 mg/dl HDL Cholesterol 33 mg/dl Cholesterol/HDL Ratio 4.8 LDL Cholesterol, Calculated 104 mg/dl Medical Emergencies . Who to Call and When: Medical Emergencies: If at any time you feel your situation is an emergency, please call 911 immediately. . Non-Emergent Contact Non-Emergency issues call your: Primary Care Provider . . "Provider Documentation" section prepared by Ro Crow. Core Measure Problem Core Measures: None [place] Drug Monitoring Program Search Results: patient reviewed within database Additional Copies To Justin Crook D.O.
== END 2016-05-21 18:46 ==
LOC: ENRESERVTM → ENRESERVDT → EDBD 20:40 → C.EDA 20:41 → C.EDINP 05-18 00:15 → C.2E 05-18 14:21
PROVIDERS: ADMIT Hospitalist; ATTEND Internal Medicine
DX: R07.89 Other chest pain (principal); J44.1 Chronic obstructive pulmonary disease with (acute) exacerbation; I25.10 Atherosclerotic heart disease of native coronary artery without angina pectoris; G89.4 Chronic pain syndrome; F43.10 Post-traumatic stress disorder, unspecified; M79.7 Fibromyalgia; S46.919A Strain of unspecified muscle, fascia and tendon at shoulder and upper arm level, unspecified arm, initial encounter; X58.XXXA Exposure to other specified factors, initial encounter; F31.9 Bipolar disorder, unspecified; I48.2 Chronic atrial fibrillation; E11.9 Type 2 diabetes mellitus without complications; F17.210 Nicotine dependence, cigarettes, uncomplicated; E78.5 Hyperlipidemia, unspecified; F11.20 Opioid dependence, uncomplicated; K21.9 Gastro-esophageal reflux disease without esophagitis; R45.851 Suicidal ideations; I10 Essential (primary) hypertension; M48.02 Spinal stenosis, cervical region; M02.30 Reiter's disease, unspecified site; I25.2 Old myocardial infarction; Z79.01 Long term (current) use of anticoagulants; Z79.4 Long term (current) use of insulin; Z87.11 Personal history of peptic ulcer disease; Z79.82 Long term (current) use of aspirin; Z87.01 Personal history of pneumonia (recurrent); Z90.49 Acquired absence of other specified parts of digestive tract; Z83.3 Family history of diabetes mellitus; Z82.49 Family history of ischemic heart disease and other diseases of the circulatory system

== ENCOUNTER 2016-05-21 18:55 | Inpatient (IN) | payer OTHER ==
[~2016-05-21] VITALS: Ht 180.3 cm; Wt 100.1 kg
[~2016-05-21 18:55] MED LIST changes: +ADVIN50/60 INH; -ALBUAER19 INH; +ASPI81TA28 PO; -ATRINS NEB; -ATV/1 PO; +ATV1 PO; +CALC1TAB27 PO; +CMD5 PO; +COEN1CAP37 PO; +DXY100 PO; +FLUT0.15 NAE; +HYDR-4079 PO; +INSDGIPEN SC; +INSU100I2 SC; -INSUINJ4 SC; +IPRASOL4 INH; -LEVA1.255 PO; -LEVO1TAB35 PO; -METH-307 PO; +MORP-86 PO; -MORP1TAB11 PO; +NCDT7 TD; -NITR0.4S UT; +NTRGSL/4 UT; -NVLGI/PEN SC; -NVLGIPEN SC; +POTA20TA13 PO; +PROB1TAB16 PO; +PRVHFAIN INH; +RBX750 PO; +RST/30 PO; -SENN-65 PO; +SNG10 PO; +TNR25 PO; +WARF-246 PO; +WARF-280 PO
[2016-05-21] MEDS ORDERED: SODIUM CHLORIDE 0.65% NA SOLN 45 ML (OCEAN) PRN (19:30)
[2016-05-21] MEDS ORDERED: NITROGLYCERIN 0.4 MG SL PER TAB CHARGE UT PRN (19:30)
[2016-05-21] MEDS ORDERED: MAGNESIUM HYDROXIDE SUSP 30 ML UDC PO PRN (19:30)
[2016-05-21] MEDS ORDERED: hydrOXYzine HCL 25 MG TAB PO PRN (19:30)
[2016-05-21] MEDS ORDERED: ALBUTEROL HFA 8 GM INHALER INH PRN (19:30)
[2016-05-21] MEDS ORDERED: ACETAMINOPHEN 325 MG TAB PO PRN (19:30)
[2016-05-21] MEDS ORDERED: POLYETHYLENE (MIRALAX) 17 GM PACK PO PRN (19:30)
[2016-05-21] MEDS ORDERED: NICOTINE POLACRILEX 2 MG GUM MT PRN (19:30)
[2016-05-21] MEDS ORDERED: ALUMINUM/MAGNESIUM SUSP 30 ML UDC PO PRN (19:30)
[2016-05-21] MEDS ORDERED: DEXTROSE 50% 50 ML SYR IV PRN (20:45)
[2016-05-21] MEDS ORDERED: GLUCOSE 10 TABS/TUBE PO PRN (20:45)
[2016-05-21] MEDS ORDERED: GLUCAGON FOR INJ 1 MG VIAL SQ PRN (20:45)
[2016-05-21] MEDS ORDERED: GLUCOSE 40% GEL 15 GM TUBE PO PRN (20:45)
[2016-05-21 20:59] VITALS: BP_SYST 151; BP_SYST 163; BP_DIAS 88; BP_DIAS 89; PULSE 52; TEMP 36.3; Ht 180.3 cm; Wt 100.1 kg
[2016-05-21] MEDS ORDERED: INSULIN ASPART 100 UNITS/ML 3 ML PEN SC SCH (22:00)
[2016-05-21] MEDS ORDERED: GABAPENTIN 300 MG CAP PO SCH (22:00)
[2016-05-21] MEDS ORDERED: NON-FORMULARY MEDICATION (Coenzyme Q10 (Ubidecarenone) (Co Q-10) 200 MG) PO SCH (22:00)
[2016-05-21] MEDS ORDERED: NURSING VERBAL MED ORDER ONE (22:00)
[2016-05-21] MEDS: MoRPHine SULFATE CR 15 MG TAB (MS CONTIN) PO SCH (22:17)
[2016-05-21] MEDS: DOXYCYCLINE HYCLATE 100 MG CAP PO SCH (22:17)
[2016-05-21] MEDS: FLUTICASONE/SALMETEROL (ADVAIR) 500/50 INH 14 PUFF INH SCH (22:17)
[2016-05-21] MEDS: GABAPENTIN 300 MG CAP PO SCH (22:17)
[2016-05-21] MEDS: TEMAZEPAM 15 MG CAP PO PRN (22:18)
[2016-05-21] MEDS: INSULIN GLARGINE SOLOSTAR 100 UNITS/ML 3 ML PEN SC SCH (22:21)
[2016-05-21] MEDS: LORAZEPAM 1 MG TAB PO PRN (22:23)
[2016-05-21] MEDS: INSULIN ASPART 100 UNITS/ML 3 ML PEN SC SCH (22:23)
[2016-05-22] MEDS: LORAZEPAM 1 MG TAB PO PRN ×2 (06:10→19:32)
[2016-05-22] MEDS: HYDROCODONE/ACETAMI 10/325 TAB PO PRN ×2 (06:11→16:13)
[2016-05-22 07:03] VITALS: BP_SYST 124; BP_SYST 126; BP_DIAS 76; BP_DIAS 77; PULSE 53; PULSE 59
[2016-05-22] MEDS: NICOTINE 14 MG/24 HR TDSY TD SCH (08:37)
[2016-05-22] MEDS: CITALOPRAM 20 MG TAB PO SCH (08:38)
[2016-05-22] MEDS: MULTIVITAMIN TAB PO SCH (08:38)
[2016-05-22] MEDS: CALCIUM 600MG + VIT D 400 IU TAB PO SCH (08:38)
[2016-05-22] MEDS: MONTELUKAST SOD 10 MG TAB PO SCH (08:39)
[2016-05-22] MEDS: GABAPENTIN 300 MG CAP PO SCH ×2 (08:39→21:23)
[2016-05-22] MEDS: LACTOBACILLUS ACIDOPHILUS (FLORANEX) TAB PO SCH (08:39)
[2016-05-22] MEDS: ASPIRIN 81 MG ECTAB PO SCH (08:39)
[2016-05-22] MEDS: PANTOprazole SOD 40 MG TAB PO SCH (08:40)
[2016-05-22] MEDS: DOXYCYCLINE HYCLATE 100 MG CAP PO SCH ×2 (08:40→21:24)
[2016-05-22] MEDS: POTASSIUM CHLORIDE 20 MEQ TABCR PO SCH (08:40)
[2016-05-22] MEDS: MoRPHine SULFATE CR 15 MG TAB (MS CONTIN) PO SCH ×3 (08:40→21:23)
[2016-05-22] MEDS: INSULIN GLARGINE SOLOSTAR 100 UNITS/ML 3 ML PEN SC SCH ×2 (08:47→21:19)
[2016-05-22] MEDS: INSULIN ASPART 100 UNITS/ML 3 ML PEN SC SCH ×4 (08:53→21:21)
[2016-05-22] MEDS: FLUTICASONE/SALMETEROL (ADVAIR) 500/50 INH 14 PUFF INH SCH ×2 (08:54→21:23)
[2016-05-22] MEDS: FLUTICASONE PROPIONATE NA SPR 16 GM BTL NAE SCH (08:54)
[2016-05-22] MEDS: METHOCARBAMOL 750 MG TAB PO PRN (12:30)
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
--- NOTE | 2016-05-22 16:05 | Progress Note ---
Progress Note Date of Service May 22, 2016. Progress Note psychiatric h and p, is located under documented labelled as psychiatric consultation
[2016-05-22] MEDS: hydrOXYzine HCL 25 MG TAB PO PRN (16:13)
[2016-05-22 16:39] LABS: INR 2.2 (0.9-1.1); PROTHROMBIN TIME (PATIENT) 24.5 SECONDS (9.0-12.0)
[2016-05-22] MEDS: WARFARIN SOD 7.5 MG TAB PO SCH (17:17)
--- NOTE | 2016-05-22 18:42 | Medical Consult ---
Consultation Date of Consultation: May 22, 2016. Attending Physician: Edgardo Wesley M.D. Reason for Consultation: Medical comanagement History of Present Illness Patient is a 61 y/o male with a h/o CAD, COPD, PTSD/depression who is admitted to the mental health unit. Patient had been admitted to medicine for chest pain. Cardiac evaluation was normal and it was felt that patient's symptoms were more likely 2/2 underlying respiratory issues. Patient is currently being treated for a COPD exacerbation with doxycycline, prednisone taper and duo-neb treatments. Family History Cancer Diabetes mellitus Heart disease Hypertension Lung disease Social History Smoking Status: Current Every Day Smoker Drug Use: none Marital Status: single Housing Status: lives with family Occupation Status: unemployed, disabled Allergies Coded Allergies: Diclofenac (Verified Adverse Reaction, Unknown, RASH WITH JOINT SWELLING- CAN TAKE ASPIRIN, 03/18/16) Current Inpatient Medications Current Inpatient Medications Medications (Trade) Dose Ordered Sig/Tal Route Start Time Stop Time Status Last Admin Dose Admin Acetaminophen (Tylenol Tab) 650 mg Q4H PRN PO 05/21/16 19:30 06/20/16 19:29 Al Hydroxide/Mg Hydroxide (Maalox Susp) 30 ml Q4H PRN PO 05/21/16 19:30 06/20/16 19:29 Magnesium Hydroxide (Milk Of Magnesia Susp) 30 ml DAILY PRN PO 05/21/16 19:30 06/20/16 19:29 Sodium Chloride ([place] Nasal [place]) PRN PRN NA 05/21/16 19:30 06/20/16 19:29 Hydroxyzine HCl (Vistaril Tab) 50 mg HSZ PRN PO 05/21/16 19:30 06/20/16 19:29 Hydroxyzine HCl (Vistaril Tab) 25 mg Q4H PRN PO 05/21/16 19:30 06/20/16 19:29 05/22/16 16:13 25 MG Nicotine (Nicoderm Cq 14MG Patch) 1 patch QAM TD 05/22/16 09:00 06/21/16 08:59 05/22/16 08:37 1 PATCH Nicotine Polacrilex (Nicorette 2MG Gum) 1 piece Q2H PRN MT 05/21/16 19:30 06/20/16 19:29 Aspirin (Ecotrin Tab) 81 mg DAILY PO 05/22/16 09:00 06/21/16 08:59 05/22/16 08:39 81 MG Atenolol (Tenormin Tab) 12.5 mg QAM PO 05/22/16 09:00 06/21/16 08:59 05/22/16 08:39 12.5 MG Citalopram Hydrobromide (celeXA TAB) 20 mg DAILY PO 05/22/16 09:00 06/21/16 08:59 05/22/16 08:38 20 MG Albuterol (Ventolin Hfa Inhaler) 2 puffs QID PRN INH 05/21/16 19:30 06/20/16 19:29 Salmeterol Xinafoate/ Fluticasone (Advair Diskus 500/50 Inh) 1 puff BID INH 05/21/16 22:00 06/20/16 21:59 05/22/16 08:54 1 PUFF Fluticasone Propionate (Flonase Nasal [place]) 2 sprays DAILY ÁNGELA 05/22/16 09:00 06/21/16 08:59 05/22/16 08:54 2 SPRAYS Acetaminophen/ Hydrocodone Bitart ([place] 10/325 Tab) 1 tab BID PRN PO 05/21/16 19:30 06/04/16 19:29 05/22/16 16:13 1 TAB Insulin Glargine (Lantus Solostar Pen) 10 unit QPM SC 05/21/16 21:00 06/20/16 20:59 05/21/16 22:21 10 UNIT Insulin Glargine (Lantus Solostar Pen) 20 unit QAM SC 05/22/16 09:00 06/21/16 08:59 05/22/16 08:47 20 UNIT Albuterol/ Ipratropium (Duoneb) 3 ml Q6H PRN INH 05/21/16 19:30 06/20/16 19:29 Methocarbamol (Robaxin Tab) 750 mg DAILY PRN PO 05/21/16 19:30 06/20/16 19:29 05/22/16 12:30 750 MG Montelukast Sodium (Singulair Tab) 10 mg QAM PO 05/22/16 09:00 06/21/16 08:59 05/22/16 08:39 10 MG Morphine Sulfate (Oramorph Sr Tab) 15 mg TID PO 05/21/16 22:00 06/04/16 21:59 05/22/16 13:43 15 MG Multivitamins (Multivitamin Tab) 1 tab DAILY PO 05/22/16 09:00 06/21/16 08:59 05/22/16 08:38 1 TAB Nitroglycerin (Nitrostat Tab) 0.4 mg UD PRN UT 05/21/16 19:30 06/20/16 19:29 Pantoprazole Sodium (Protonix Tab) 40 mg DAILY PO 05/22/16 09:00 06/21/16 08:59 05/22/16 08:40 40 MG Potassium Chloride (Klor-Con Tab) 20 meq DAILY PO 05/22/16 09:00 06/21/16 08:59 05/22/16 08:40 20 MEQ Prednisone (PredniSONE TAB) 10 mg DAILY PO 05/22/16 09:00 06/21/16 08:59 05/22/16 08:39 10 MG Temazepam (Restoril Cap) 30 mg HS PRN PO 05/21/16 19:30 06/20/16 19:29 05/21/16 22:18 30 MG Warfarin Sodium (Coumadin Tab) 10 mg MoFr@1600 PO 05/23/16 16:00 06/22/16 15:59 Warfarin Sodium (Coumadin Tab) 7.5 mg SuTuWeThSa@1600 PO 05/22/16 16:00 06/21/16 15:59 05/22/16 17:17 7.5 MG Calcium/Vitamin D (Caltrate Plus Tab) 1 tab DAILY PO 05/22/16 09:00 06/21/16 08:59 05/22/16 08:38 1 TAB Polyethylene (Miralax Powder Packet) 17 gm DAILY PRN PO 05/21/16 19:30 06/20/16 19:29 Lactobacillus Acidophilus (Floranex Tab) 1 tab DAILY PO 05/22/16 09:00 06/21/16 08:59 05/22/16 08:39 1 TAB Miscellaneous (Remove Nicoderm Patch) 1 ea HS N/A 05/22/16 22:00 06/21/16 21:59 05/22/16 08:37 1 EA Doxycycline Hyclate (Vibramycin Cap) 100 mg BID PO 05/21/16 22:00 05/28/16 21:59 05/22/16 08:40 100 MG Gabapentin (Neurontin Cap) 300 mg BID PO 05/21/16 22:00 06/20/16 21:59 05/22/16 08:39 300 MG Glucose (Glucose 40% Gel) 15-30 GRAMS 15 GRAMS... UD PRN PO 05/21/16 20:45 06/20/16 20:44 Glucose (Glucose Chew Tab) 4-8 Tablets 4 Tabl... UD PRN PO 05/21/16 20:45 06/20/16 20:44 Dextrose (Dextrose 50% 50ML Syringe) 25-50ML OF 50% DW IV FOR... UD PRN IV 05/21/16 20:45 06/20/16 20:44 Glucagon (Glucagon Inj) 1 mg UD PRN SQ 05/21/16 20:45 06/20/16 20:44 Insulin Aspart (novoLOG ASPART) SLIDING SCALE ACHS SC 05/21/16 22:00 06/20/16 21:59 05/22/16 18:23 15 UNITS Lorazepam (Ativan Tab) 1 mg BID PRN PO 05/21/16 22:15 06/20/16 22:14 05/22/16 06:10 1 MG Review of Systems Constitutional- +headache; denies fevers or chills Eyes- +vision changes with headache ENT- +nasal congestion Pulmonary- +SOB/cough Cardiac- denies chest pain or palpitations GI- denies abdominal pain, nausea, vomiting - denies dysuria or hematuria Musculoskeletal- +chronic back and neck pain Dermatologic- denies rashes or bruising Neuro- +radiculopathy of right arm Psych- +depression/anxiety . Physical Exam Date Time Temp Pulse Resp B/P Pulse Ox O2 Delivery O2 Flow Rate FiO2 05/22/16 07:03 53 18 124/77 59 126/76 05/21/16 20:59 36.3 52 18 151/88 163/89 General- awake; alert; NAD Eyes- EOMI; no scleral icterus Neck- no stridor; trachea midline Lungs- coarse breath sounds; scant end expiratory wheezes Heart- RRR; no m/r/g Abdomen- soft; NTND; nBS Extremities- no c/c/e; no deformity Neuro- no focal deficits Skin- no appreciable rash . Laboratory Results Last 24 Hours Test 05/21/16 21:51 05/22/16 07:42 05/22/16 12:21 05/22/16 16:19 Bedside Glucose 280 mg/dl 184 mg/dl 132 mg/dl Prothrombin Time 24.5 SECONDS Prothromb Time International Ratio 2.2 Test 05/22/16 17:11 Bedside Glucose 205 mg/dl Assessment & Plan Bronchitis/COPD exacerbation - continue prednisone taper - continue course of doxycycline - continue nebulizers PRN - continue Advair Type 2 DM - continue outpatient insulin regimen - glucoses reviewed and acceptable at this time Atrial fibrillation - continue atenolol and warfarin Thank you for this consultation. We will follow the patient with you during their hospital stay. You can reach a member of the [facility] Hospitalist Team 17/10 via pager @ [phone].
[2016-05-22] MEDS: TEMAZEPAM 15 MG CAP PO PRN (22:11)
[2016-05-22] MEDS: OXYMETAZOLINE HCL 0.05% NA SPR 15 ML BTL PRN (22:16)
[2016-05-23] MEDS: LORAZEPAM 1 MG TAB PO PRN (05:56)
[2016-05-23] MEDS: HYDROCODONE/ACETAMI 10/325 TAB PO PRN (05:56)
[2016-05-23 06:27] VITALS: BP_SYST 149; BP_SYST 152; BP_DIAS 91; BP_DIAS 93; PULSE 59; TEMP 36.8
[2016-05-23] MEDS: FLUTICASONE/SALMETEROL (ADVAIR) 500/50 INH 14 PUFF INH SCH ×2 (08:30→21:27)
[2016-05-23] MEDS: FLUTICASONE PROPIONATE NA SPR 16 GM BTL NAE SCH (08:31)
[2016-05-23] MEDS: LACTOBACILLUS ACIDOPHILUS (FLORANEX) TAB PO SCH (08:38)
[2016-05-23] MEDS: MONTELUKAST SOD 10 MG TAB PO SCH (08:38)
[2016-05-23] MEDS: DOXYCYCLINE HYCLATE 100 MG CAP PO SCH ×2 (08:38→21:28)
[2016-05-23] MEDS: CITALOPRAM 20 MG TAB PO SCH (08:38)
[2016-05-23] MEDS: MULTIVITAMIN TAB PO SCH (08:38)
[2016-05-23] MEDS: CALCIUM 600MG + VIT D 400 IU TAB PO SCH (08:38)
[2016-05-23] MEDS: ASPIRIN 81 MG ECTAB PO SCH (08:38)
[2016-05-23] MEDS: GABAPENTIN 300 MG CAP PO SCH ×2 (08:38→21:27)
[2016-05-23] MEDS: PANTOprazole SOD 40 MG TAB PO SCH (08:39)
[2016-05-23] MEDS: POTASSIUM CHLORIDE 20 MEQ TABCR PO SCH (08:39)
[2016-05-23] MEDS: MoRPHine SULFATE CR 15 MG TAB (MS CONTIN) PO SCH ×3 (08:39→21:28)
[2016-05-23] MEDS: NICOTINE 14 MG/24 HR TDSY TD SCH (08:40)
[2016-05-23] MEDS: INSULIN GLARGINE SOLOSTAR 100 UNITS/ML 3 ML PEN SC SCH ×2 (08:42→21:32)
[2016-05-23] MEDS: INSULIN ASPART 100 UNITS/ML 3 ML PEN SC SCH ×4 (08:58→21:35)
[2016-05-23] MEDS: METHOCARBAMOL 750 MG TAB PO PRN (11:40)
[2016-05-23] MEDS: hydrOXYzine HCL 25 MG TAB PO PRN (11:40)
[2016-05-23 12:08] VITALS: PULSE 58; O2SAT 98
[2016-05-23] MEDS: ALBUT/IPRATROP 3MG/0.5MG NEB 3 ML VIAL INH PRN ×2 (12:08→18:54)
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
[2016-05-23] MEDS ORDERED: WARFARIN SOD 10 MG TAB PO SCH (16:00)
[2016-05-23 18:55] VITALS: PULSE 64; O2SAT 96
[2016-05-23] MEDS: OXYMETAZOLINE HCL 0.05% NA SPR 15 ML BTL PRN (21:27)
[2016-05-23] MEDS: TEMAZEPAM 15 MG CAP PO PRN (21:38)
[2016-05-24] MEDS: LORAZEPAM 1 MG TAB PO PRN (05:15)
[2016-05-24] MEDS: HYDROCODONE/ACETAMI 10/325 TAB PO PRN ×2 (05:16→19:27)
[2016-05-24 07:06] VITALS: BP_SYST 131; BP_SYST 132; BP_DIAS 81; BP_DIAS 84; PULSE 52; PULSE 60; TEMP 36.4
[2016-05-24] MEDS: FLUTICASONE PROPIONATE NA SPR 16 GM BTL NAE SCH (07:52)
[2016-05-24] MEDS: FLUTICASONE/SALMETEROL (ADVAIR) 500/50 INH 14 PUFF INH SCH ×2 (07:53→21:50)
[2016-05-24] MEDS: NICOTINE 14 MG/24 HR TDSY TD SCH (07:56)
[2016-05-24] MEDS: ASPIRIN 81 MG ECTAB PO SCH (07:58)
[2016-05-24] MEDS: CALCIUM 600MG + VIT D 400 IU TAB PO SCH (07:58)
[2016-05-24] MEDS: CITALOPRAM 20 MG TAB PO SCH (07:58)
[2016-05-24] MEDS: LACTOBACILLUS ACIDOPHILUS (FLORANEX) TAB PO SCH (07:59)
[2016-05-24] MEDS: MULTIVITAMIN TAB PO SCH (07:59)
[2016-05-24] MEDS: POTASSIUM CHLORIDE 20 MEQ TABCR PO SCH (07:59)
[2016-05-24] MEDS: GABAPENTIN 300 MG CAP PO SCH ×2 (07:59→21:50)
[2016-05-24] MEDS: MONTELUKAST SOD 10 MG TAB PO SCH (08:00)
[2016-05-24] MEDS: INSULIN ASPART 100 UNITS/ML 3 ML PEN SC SCH ×4 (08:00→21:56)
[2016-05-24] MEDS: PANTOprazole SOD 40 MG TAB PO SCH (08:00)
[2016-05-24] MEDS: DOXYCYCLINE HYCLATE 100 MG CAP PO SCH ×2 (08:02→21:50)
[2016-05-24] MEDS: MoRPHine SULFATE CR 15 MG TAB (MS CONTIN) PO SCH ×3 (08:03→21:51)
[2016-05-24] MEDS ORDERED: CITALOPRAM 40 MG TAB PO ONE (08:32)
[2016-05-24] MEDS: CITALOPRAM 40 MG TAB PO SCH (09:00)
[2016-05-24] MEDS: INSULIN GLARGINE SOLOSTAR 100 UNITS/ML 3 ML PEN SC SCH ×2 (09:09→21:52)
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
[2016-05-24 11:24] VITALS: PULSE 55; O2SAT 99
[2016-05-24] MEDS: ALBUT/IPRATROP 3MG/0.5MG NEB 3 ML VIAL INH PRN (11:24)
[2016-05-24] MEDS: hydrOXYzine HCL 25 MG TAB PO PRN (13:42)
[2016-05-24] MEDS: METHOCARBAMOL 750 MG TAB PO PRN (14:24)
[2016-05-24] MEDS: WARFARIN SOD 7.5 MG TAB PO SCH (15:59)
[2016-05-24] MEDS ORDERED: NURSING VERBAL MED ORDER ONE ×2 (19:30→20:15)
[2016-05-24] MEDS ORDERED: LORAZEPAM 1 MG TAB PO PRN ×2 (20:00→22:00)
[2016-05-24] MEDS ORDERED: LORAZEPAM 1 MG TAB PO ONE (20:30)
[2016-05-24 21:06] VITALS: BP 137/79; PULSE 47; TEMP 36.3
[2016-05-24 23:03] VITALS: BP 183/96; PULSE 53
[2016-05-24] MEDS: OXYMETAZOLINE HCL 0.05% NA SPR 15 ML BTL PRN (23:49)
[2016-05-25] MEDS: TEMAZEPAM 15 MG CAP PO PRN (00:33)
[2016-05-25 07:12] VITALS: BP_SYST 100; BP_SYST 101; BP_DIAS 63; PULSE 52; PULSE 57; TEMP 36.4
[2016-05-25] MEDS: MoRPHine SULFATE CR 15 MG TAB (MS CONTIN) PO SCH ×2 (07:14→13:44)
[2016-05-25] MEDS: FLUTICASONE/SALMETEROL (ADVAIR) 500/50 INH 14 PUFF INH SCH (08:55)
[2016-05-25] MEDS: FLUTICASONE PROPIONATE NA SPR 16 GM BTL NAE SCH (08:55)
[2016-05-25] MEDS: CALCIUM 600MG + VIT D 400 IU TAB PO SCH (08:56)
[2016-05-25] MEDS: INSULIN GLARGINE SOLOSTAR 100 UNITS/ML 3 ML PEN SC SCH (08:56)
[2016-05-25] MEDS: CITALOPRAM 40 MG TAB PO SCH (08:56)
[2016-05-25] MEDS: ASPIRIN 81 MG ECTAB PO SCH (08:56)
[2016-05-25] MEDS: LACTOBACILLUS ACIDOPHILUS (FLORANEX) TAB PO SCH (08:59)
[2016-05-25] MEDS: MONTELUKAST SOD 10 MG TAB PO SCH (08:59)
[2016-05-25] MEDS: INSULIN ASPART 100 UNITS/ML 3 ML PEN SC SCH ×3 (08:59→17:48)
[2016-05-25] MEDS: MULTIVITAMIN TAB PO SCH (08:59)
[2016-05-25] MEDS: DOXYCYCLINE HYCLATE 100 MG CAP PO SCH (08:59)
[2016-05-25] MEDS: GABAPENTIN 300 MG CAP PO SCH (08:59)
[2016-05-25] MEDS: PANTOprazole SOD 40 MG TAB PO SCH (09:00)
[2016-05-25] MEDS: POTASSIUM CHLORIDE 20 MEQ TABCR PO SCH (09:00)
[2016-05-25] MEDS: NICOTINE 14 MG/24 HR TDSY TD SCH (09:01)
--- NOTE | 2016-05-25 09:36 | DIAGNOSTIC IMAGING REPORT ---
TWO VIEW CHEST CLINICAL HISTORY: Pneumonia. FINDINGS: PA and lateral chest radiographs are compared to study dated 05/20/2016 and correlated with chest CT dated 05/17/2016. The PA view is degraded by apical lordotic positioning. The cardiomediastinal silhouette is unremarkable. Chronic interstitial thickening and bibasilar atelectasis is similar to previous. No airspace consolidation is seen typical for pneumonia and no pleural effusion is identified. There is no pneumothorax. The bony thorax appears intact. Degenerative change is noted throughout the thoracic spine. IMPRESSION: No acute cardiopulmonary abnormality. Electronically signed by: Berny Yung M.D. 05/25/2016 9:34 AM Dictated Date/Time: 05/25/2016 9:32 AM
[2016-05-25 11:26] VITALS: PULSE 68; O2SAT 97
[2016-05-25] MEDS: ALBUT/IPRATROP 3MG/0.5MG NEB 3 ML VIAL INH PRN (11:26)
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
[2016-05-25] MEDS ORDERED: CITA40TA4 PO (13:12)
[2016-05-25] MEDS ORDERED: NCDT7 TD (13:12)
[2016-05-25] MEDS ORDERED: DXY100 PO (13:12)
[2016-05-25] MEDS ORDERED: NCDT14 TD (13:12)
[2016-05-25] MEDS ORDERED: ATV1 PO (13:12)
[2016-05-25] MEDS ORDERED: PRED10TA PO (13:12)
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
[2016-05-25 13:25] VITALS: BP 135/75; PULSE 62; TEMP 36.6
[2016-05-25] MEDS: WARFARIN SOD 7.5 MG TAB PO SCH (15:43)
[2016-05-25] MEDS: METHOCARBAMOL 750 MG TAB PO PRN (15:57)
[2016-05-25 16:00] VITALS: BP 152/89; PULSE 66; TEMP 36.5
--- NOTE | 2016-05-26 08:50 | Psych Management Progress Note ---
Psychiatry Miscellaneous Date of Service: May 26, 2016. Called Dr. Crook, patient's PCP who he is scheduled to see tomorrow, to update him on patient's recent admission, refusal to sign TEOFILO so that records could be sent for continuity of care, and medication changes that were made. Also updated him on the medicine team's recommendation that he follow up with cardiology, and that he was referred for outpatient mental health services.
== END 2016-05-25 18:15 | disposition home or self-care (01) | DRG 885 ==
LOC: C.MHU 18:55
PROVIDERS: ADMIT Psychiatry & Neurology Psychiatry; ATTEND Psychiatry & Neurology Psychiatry
DX: F33.9 Major depressive disorder, recurrent, unspecified (principal); J18.9 Pneumonia, unspecified organism; R45.851 Suicidal ideations; J44.0 Chronic obstructive pulmonary disease with (acute) lower respiratory infection; J44.1 Chronic obstructive pulmonary disease with (acute) exacerbation; M48.02 Spinal stenosis, cervical region; F43.10 Post-traumatic stress disorder, unspecified; R07.9 Chest pain, unspecified; I25.2 Old myocardial infarction; I48.91 Unspecified atrial fibrillation; F17.210 Nicotine dependence, cigarettes, uncomplicated; J40 Bronchitis, not specified as acute or chronic; I10 Essential (primary) hypertension; E11.9 Type 2 diabetes mellitus without complications; Z79.82 Long term (current) use of aspirin; Z79.899 Other long term (current) drug therapy; Z79.4 Long term (current) use of insulin; Z79.51 Long term (current) use of inhaled steroids; Z79.891 Long term (current) use of opiate analgesic; Z79.52 Long term (current) use of systemic steroids; Z79.01 Long term (current) use of anticoagulants

== ENCOUNTER 2019-01-16 19:00 | Observation (INO) ==
--- OUTSIDE RECORDS SUMMARY | 2019-01-16 19:05 | External Medical Summary | Continuity of Care Document ---
:1955 Author Name Marlena Orellana Address Unavailable Unavailable , Care Team Providers Name Role Phone [facility] M.D. Unavailable [email or web address] PCP, UNKNOWN Unavailable Unavailable Problems Active medical history not documented Allergies and Adverse Reactions Allergy history not documented Medications Medications not documented Procedures Procedures not documented Immunizations Immunizations not documented Plan of Treatment Planned Observations Planned Goals not documented Results No Known Results Results not documented
--- NOTE | 2019-01-16 21:22 | XRay Report ---
XR chest 1V portable CLINICAL HISTORY: 63 years-old Male presenting with chest pain. TECHNIQUE: Portable upright AP view of the chest was obtained. COMPARISON: 05/17/2016. FINDINGS: Interval placement of a left subclavian pacer with leads to the right atrium and right ventricular ap ex. Atherosclerosis of the aortic arch. Cardiac silhouette mildly enlarged. Pulmonary vasculature is only minimally engorged. Elevation of the left hemidiaphragm new from prior. Minimal left basilar [place]. No large effusion or pneumothorax. Degenerative changes of the thoracic spine. Upper abdomen no rmal. IMPRESSION: 1. Mild cardiomegaly and minimal volume overload. No advanced congestive change or pulmonary edema. 2. Minimal left basilar atelectasis secondary to elevated left hemidiaphragm. Electronically signed by: Thomas Govea M.D. 01/16/2019 9:20 PM
[2019-01-16 21:24] LABS: Basophils # (auto) 0.02 K/uL (0-0.2); Basophils % (auto) 0.3 %; Eosinophils # (auto) 0.12 K/uL (0-0.5); Eosinophils % (auto) 1.7 %; Hematocrit (blood only) 43.3 % (42-52); Hemoglobin 14.7 g/dL (14.0-18.0); Immature Granulocytes # (auto) 0.02 K/uL (0.00-0.02); Immature Granulocytes % (auto) 0.3 %; Lymphocytes # (auto) 2.02 K/uL (1.2-3.4); Lymphocytes % (auto) 28.7 %; Mean Corpuscular Hgb Conc 33.9 g/dL (32-36); Mean Corpuscular Volume 94.1 fL (80-100); Mean Platelet Volume 11.3 fL (7.4-10.4); Monocytes # (auto) 0.54 K/uL (0.11-0.59); Monocytes % (auto) 7.7 %; Neutrophils # (auto) 4.31 K/uL (1.4-6.5); Neutrophils % (auto) 61.3 %; Platelet Count 165 K/uL (130-400); RDW Coefficient of Variation 12.7 % (11.5-14.5); RDW Standard Deviation 43.7 fL (36.4-46.3); White Blood Count 7.03 K/uL (4.8-10.8)
[2019-01-16 21:37] LABS: INR 1.5 (0.9-1.1); Partial Thromboplastin Ratio 1.1; Partial Thromboplastin Time 29.1 Seconds (21.0-31.0); Prothrombin Time 14.8 Seconds (9.0-12.0)
[2019-01-16 21:39] LABS: Alanine Aminotransferase 45 U/L (12-78); Albumin Level 4.1 gm/dl (3.4-5.0); Aspartate Aminotransferase 23 U/L (15-37); BUN Creatinine Ratio 21.9 (10-20); Blood Urea Nitrogen 19 mg/dl (7-18); Calcium 9.2 mg/dl (8.5-10.1); Carbon Dioxide 28 mmol/L (21-32); Chloride 105 mmol/L (98-107); Creatinine Clr Calc Pharmacy 106.1 ml/min; Est GFR (African American) 106.7; Est GFR (Non-African American) 92.1; Glucose 102 mg/dl (70-99); Lipase 98 U/L (73-393); Potassium 4.5 mmol/L (3.5-5.1); Sodium 138 mmol/L (136-145)
[2019-01-16 21:42] LABS: Albumin Globulin Ratio 1.5 (0.9-2); Alkaline Phosphatase 50 U/L (45-117); Bilirubin,Total 0.6 mg/dl (0.2-1); Globulin 2.7 gm/dl (2.5-4.0); Total Protein 6.8 gm/dl (6.4-8.2)
[2019-01-16 23:09] LABS: Troponin I < 0.015 ng/ml (0-0.045)
[2019-01-16 23:49] LABS: Appearance Urine Clear (Clear); Bacteria Urine Automated Negative (Negative); Bilirubin Urine Negative (Negative); Blood Urine Negative (Negative); Color Urine Dark Yellow; Epithelial Cell Urine Auto 0-5 /lpf (0-5); Glucose Urine UA Negative (Negative); Ketones Urine Negative (Negative); Leukocyte Esterase Urine Trace (Negative); Nitrite Urine Negative (Negative); Protein Urine Negative (Negative); RBC Urine Automated 0-4 /hpf (0-4); Specific Gravity Urine 1.024 (1.000-1.030); Urobilinogen Urine Negative (Negative); pH Urine 6.5 (4.5-7.5)
[2019-01-16] MEDS ORDERED: CONSULT PHARMACY PRN (23:58)
[2019-01-17] MEDS ORDERED: PANTOprazole 40 MG in SYRINGE 0 ML IV ONE (00:15)
[2019-01-17 00:20] LABS: Magnesium 2.1 mg/dl (1.8-2.4); NT Pro B Type Natriuretic Pept 93 pg/ml (0-900)
[2019-01-17] MEDS ORDERED: IOVERSOL 100ml IV PRN (00:40)
[2019-01-17 00:48] LABS: Hematocrit (blood only) 41.2 % (42-52); Hemoglobin 14.4 g/dL (14.0-18.0)
--- NOTE | 2019-01-17 01:27 | Emergency Department Note ---
Entered by Elo Dominguez acting as a scribe for Demetrius Cleary MD History of Present Illness General Chief complaint: Abdominal Pain Stated complaint: NAUSEAS DIZZINESS Time Seen by Provider: 01/16/19 20:25 Source: patient Limitations: no limitations History of Present Illness Onset (ago): month(s) 2 Location: abdomen Severity: severe Pain Consistency: + constant Maximum Pain Intensity: 5 Quality: + other (pain) Associated symptoms: + denies other symptoms (recent trauma/injury), + chest pain and + other (black stools) The patient is a 63 year old male who presents to the Emergency Room with complaints of severe constant abdominal pain that began 2 months ago. The patient reports that he is H. Pylori positive, so he was prescribed antibiotics a week ago. He notes that the pain is located in his RUQ. The patient complains of black stools. He complains of chest pain, noting that it was resolved after taking nitroglycerin. The patient denies taking any iron supplements. He denies any recent trauma/injury. The patient notes that he took Pepto-Bismol. He notes that he takes Plavix and Coumadin. The patient notes a history of pancreatic masses. Home Medications Home Medications Medication Instructions Recorded Confirmed Type Lactobacillus acidophilus 10 cell PO DAILY 01/16/19 01/16/19 History [Probiotic] albuterol sulfate [Ventolin HFA] 2 puff INHALATION QID PRN 01/16/19 01/16/19 History aspirin [Aspir-81] 81 mg PO DAILY 01/16/19 01/16/19 History atenolol 25 mg PO DAILY 01/16/19 01/16/19 History baclofen 10 mg PO BID PRN 01/16/19 01/16/19 History bismuth subsalicylate [Bismuth] 524 mg PO QID 01/16/19 01/16/19 History calcium carb-mag ox-zinc sulf 1 tab PO DAILY 01/16/19 01/16/19 History clopidogrel [Plavix] 75 mg PO DAILY 01/16/19 01/16/19 History coQ10 (ubiquinol) 200 mg PO TID 01/16/19 01/16/19 History escitalopram oxalate [Lexapro] 20 mg PO DAILY 01/16/19 01/16/19 History fluticasone propion-salmeterol 1 inh INHALATION BID 01/16/19 01/16/19 History [Advair Diskus] fluticasone propionate [Flonase 2 spray INTRANASAL DAILY 01/16/19 01/16/19 History Allergy Relief] furosemide [Lasix] 20 mg PO DAILY 01/16/19 01/16/19 History gabapentin 300 mg PO BID 01/16/19 01/16/19 History hydrocodone-acetaminophen 1 tab PO BID PRN 01/16/19 01/16/19 History insulin glargine [Lantus U-100 10 unit SUBCUT QPM 01/16/19 01/16/19 History Insulin] insulin glargine [Lantus U-100 20 unit SUBCUT QAM 01/16/19 01/16/19 History Insulin] insulin lispro [Humalog KwikPen 0 unit SUBCUT TID 01/16/19 01/16/19 History Insulin] ipratropium-albuterol 3 ml INHALATION Q6 PRN 01/16/19 01/16/19 History isosorbide mononitrate 15 mg PO DAILY 01/16/19 01/16/19 History lorazepam 1 mg PO DAILY PRN 01/16/19 01/16/19 History metronidazole [Flagyl] 500 mg PO TID 01/16/19 01/16/19 History montelukast [Singulair] 10 mg PO DAILY 01/16/19 01/16/19 History morphine 15 mg PO TID PRN 01/16/19 01/16/19 History multivitamin 1 tab PO DAILY 01/16/19 01/16/19 History pantoprazole 40 mg PO DAILY 01/16/19 01/16/19 History polyethylene glycol 3350 [Miralax] 17 g PO DAILY PRN 01/16/19 01/16/19 History potassium chloride 20 meq PO DAILY 01/16/19 01/16/19 History tetracycline 500 mg PO Q6H 01/16/19 01/16/19 History trazodone 50 mg PO HS PRN 01/16/19 01/16/19 History warfarin 5 mg PO 4XWK 01/16/19 01/16/19 History warfarin 7.5 mg PO 3XWK 01/16/19 01/16/19 History Allergies Allergy/AdvReac Type Severity Reaction Status Date / Time capsaicin AdvReac Unknown RASH WITH Verified 01/16/19 23:22 JOINT SWELLING-CAN TAKE ASPIRIN diclofenac AdvReac Unknown RASH WITH Verified 01/16/19 23:22 JOINT SWELLING-CAN TAKE ASPIRIN Diclopak AdvReac Unknown RASH WITH Verified 03/18/16 16:31 JOINT SWELLING-CAN TAKE ASPIRIN Past Med/Surg History Medical History Paralysis of diaphragm (Chronic Unknown) HTN (hypertension) (Chronic) Insomnia (Chronic) Depression, recurrent (Chronic) PTSD (post-traumatic stress disorder) (Chronic) Personality disorder (Chronic) "With narcissistic, borderline, and avoidant traits" Chest pain (Acute) COPD exacerbation Surgical History Stented coronary artery (Resolved) "stent x 7 from [id number]" History of appendectomy (Resolved) "11/06/13" Social History Preferred Language: Burmese Communication Ability: Effective [employer] Work[employer] Required: No Beliefs That Will Affect Care: None Current Living Situation: Alone Other Information That Helps Us Care for You: No Feels Safe at Home: Yes Safety Concerns: Feels Safe At This Time Smoking Status: Current every day smoker Tobacco Type: cigarettes ; Do You Dip or Chew Tobacco: No ; Second Hand Exposure: No ; Tobacco Cessation Education Requested by Patient: No Hx Alcohol Use: No Hx Substance Use: No Review of Systems See HPI for pertinent positives & negatives. and A total of 10 systems reviewed and were otherwise negative Physical Exam Vital Signs Vital Signs - 24 hr 01/16/19 19:08 01/16/19 21:11 01/16/19 21:13 Temperature 36.8 C Temperature Source Oral Sepsis Recent Fever Within 48 Hours No Sepsis New/Unexplained Change in Mental Status No Sepsis Action Taken by Nursing No Action Required Pulse Rate 86 61 62 Pulse Rate from SpO2 Sensor 61 Pulse Rhythm Regular Respiratory Rate 16 14 18 Blood Pressure 120/77 119/70 Blood Pressure Mean 91 86 Pulse Oximetry 98 96 95 Oxygen Delivery Method Room Air Room Air Room Air 01/16/19 21:30 01/16/19 22:00 01/16/19 22:30 Temperature Temperature Source Sepsis Recent Fever Within 48 Hours Sepsis New/Unexplained Change in Mental Status Sepsis Action Taken by Nursing Pulse Rate 63 64 61 Pulse Rate from SpO2 Sensor 63 65 61 Pulse Rhythm Respiratory Rate 15 19 21 Blood Pressure 123/84 118/84 126/86 Blood Pressure Mean 97 95 99 Pulse Oximetry 96 96 97 Oxygen Delivery Method Room Air Room Air Room Air 01/16/19 23:00 01/16/19 23:30 01/17/19 00:00 Temperature Temperature Source Sepsis Recent Fever Within 48 Hours Sepsis New/Unexplained Change in Mental Status Sepsis Action Taken by Nursing Pulse Rate 63 61 60 Pulse Rate from SpO2 Sensor 63 61 60 Pulse Rhythm Respiratory Rate 16 16 12 Blood Pressure 149/100 H 139/95 135/82 Blood Pressure Mean 116 109 99 Pulse Oximetry 98 97 97 Oxygen Delivery Method 01/17/19 00:30 01/17/19 00:32 01/17/19 01:00 Temperature Temperature Source Sepsis Recent Fever Within 48 Hours Sepsis New/Unexplained Change in Mental Status Sepsis Action Taken by Nursing Pulse Rate 63 64 63 Pulse Rate from SpO2 Sensor 63 64 63 Pulse Rhythm Respiratory Rate 20 18 13 Blood Pressure 139/84 139/84 143/86 H Blood Pressure Mean 102 102 105 Pulse Oximetry 98 98 97 Oxygen Delivery Method 01/17/19 01:30 Temperature Temperature Source Sepsis Recent Fever Within 48 Hours Sepsis New/Unexplained Change in Mental Status Sepsis Action Taken by Nursing Pulse Rate 62 Pulse Rate from SpO2 Sensor 62 Pulse Rhythm Respiratory Rate 14 Blood Pressure 127/84 Blood Pressure Mean 98 Pulse Oximetry 97 Oxygen Delivery Method General: Non-ill appearing middle aged male in no acute distress. HEENT: Normal cephalic atraumatic. Pupils are equal round and reactive to light. Extraocular movements are intact. Oropharynx is pink with moist mucous membranes. No swelling of the mouth lips or tongue. Neck: Supple with a midline trachea. No meningeal signs or stiffness, no JVD or bruits. No Stridor. Chest: Clear to auscultation bilaterally. No wheezes or rhonchi. No increased work of breathing. Heart: regular rate and rhythm. Abdomen: Soft, tender in the right upper abdomen, nondistended without rebound guarding or rigidity. Extremities: No cyanosis clubbing or edema. No calf tenderness or asymmetry Spine/Back. Non tender to palpation. No CVA tenderness Skin: Good turgor without rashes. Neurologic exam: Cranial nerves two through 12 are intact. Motor and sensation are intact and symmetrical throughout. Course 2027: The patient was evaluated in room B11B. A complete history and physical exam was performed. 2345: I reevaluated the patient, and he is willing to be admitted. 2352: I spoke with Dr. Parikh, [facility] hospitalist, about the patients case. He will further evaluate the patient. Administered Medications Hydrocodone Bitart/Acetaminophen ([place] 325) 1 tab PO QID PRN PRN Reason: Pain Stop: 01/31/19 02:23 Last Admin: 01/17/19 06:06 Dose: 1 tab Documented by: [id number] Aspirin (Ecotrin Ectab) 81 mg PO DAILY VALERIE Stop: 02/16/19 08:59 Last Admin: 01/17/19 07:44 Dose: 81 mg Documented by: [id number] Atenolol (Tenormin) 25 mg PO DAILY VALERIE Stop: 02/16/19 08:59 Last Admin: 01/17/19 07:45 Dose: 25 mg Documented by: [id number] Bismuth Subsalicylate (Pepto-Bismol) 2 tab PO QID VALERIE Stop: 02/16/19 08:59 Last Admin: 01/17/19 07:44 Dose: 2 tab Documented by: [id number] Clopidogrel Bisulfate (Plavix) 75 mg PO DAILY VALERIE Stop: 02/16/19 08:59 Last Admin: 01/17/19 07:44 Dose: 75 mg Documented by: [id number] Doxycycline Hyclate (Vibramycin) 100 mg PO BID@0700,1900 [facility] Stop: 01/27/19 10:59 Last Admin: 01/17/19 10:53 Dose: 100 mg Documented by: [id number] Escitalopram Oxalate (Lexapro Tab) 20 mg PO DAILY VALERIE Stop: 02/16/19 08:59 Last Admin: 01/17/19 07:45 Dose: 20 mg Documented by: [id number] Fluticasone Propionate (Flonase) 2 sprays NA DAILY VALERIE Stop: 02/16/19 08:59 Last Admin: 01/17/19 07:44 Dose: 2 sprays Documented by: [id number] Gabapentin (Neurontin) 300 mg PO BID VALERIE Stop: 02/16/19 08:59 Last Admin: 01/17/19 07:44 Dose: 300 mg Documented by: [id number] Pantoprazole Sodium 40 mg/ (Syringe) 10 mls @ 5 mls/min IV BID VALERIE Stop: 02/16/19 08:59 Last Admin: 01/17/19 07:48 Dose: 5 mls/min Documented by: [id number] Dextrose/Sodium Chloride (D5w And Nss) 1,000 mls @ 40 mls/hr IV .Q24H VALERIE Stop: 02/16/19 03:29 Last Admin: 01/17/19 03:34 Dose: 40 mls/hr Documented by: [id number] Insulin Aspart (Novolog Flexpen) 0 units SC Q6 VALERIE Stop: 02/16/19 02:59 Last Admin: 01/17/19 05:59 Dose: Not Given Documented by: [id number] Cosigned by: [id number] Admin: 01/17/19 03:16 Dose: Not Given Documented by: [id number] Cosigned by: [id number] Isosorbide Mononitrate (Imdur Extended Rel) 15 mg PO DAILY VALERIE Stop: 02/16/19 08:59 Last Admin: 01/17/19 07:44 Dose: 15 mg Documented by: [id number] Lorazepam (Ativan) 1 mg PO DAILY PRN PRN Reason: Anxiety Stop: 02/16/19 02:34 Last Admin: 01/17/19 03:06 Dose: 1 mg Documented by: [id number] Metronidazole (Flagyl) 500 mg PO TID VALERIE Stop: 02/16/19 08:59 Last Admin: 01/17/19 07:44 Dose: 500 mg Documented by: [id number] Miscellaneous (Order Awaiting Action) 1 ea N/A QS [facility] Stop: 02/16/19 02:44 Last Admin: 01/17/19 06:55 Dose: Not Given Documented by: [id number] Admin: 01/17/19 03:06 Dose: Not Given Documented by: [id number] Montelukast Sodium (Singulair) 10 mg PO DAILY [facility] Stop: 02/16/19 08:59 Last Admin: 01/17/19 07:44 Dose: 10 mg Documented by: [id number] Morphine Sulfate (Morphine Sulfate Ir) 15 mg PO TID PRN PRN Reason: Pain Stop: 01/31/19 02:23 Last Admin: 01/17/19 07:56 Dose: 15 mg Documented by: [id number] Multivitamins (Multivitamin Tab) 1 tab PO DAILY VALERIE Stop: 02/16/19 08:59 Last Admin: 01/17/19 07:44 Dose: 1 tab Documented by: [id number] Nicotine (Nicoderm Cq) 14 mg TD QAM VALERIE Stop: 02/16/19 02:59 Last Admin: 01/17/19 03:11 Dose: 14 mg Documented by: [id number] Fluticasone/Salmeterol (Advair Diskus 500/50) 1 puffs INH BID VALERIE Stop: 02/16/19 08:59 Last Admin: 01/17/19 07:44 Dose: 1 puffs Documented by: [id number] Discontinued Medications Hydrocodone Bitart/Acetaminophen ([place] 5/325) 1 tab PO NOW STA Stop: 01/17/19 01:39 Last Admin: 01/17/19 01:41 Dose: 1 tab Documented by: [id number] Pantoprazole Sodium 40 mg/ (Syringe) 10 mls @ 5 mls/min IV ONE ONE Stop: 01/17/19 00:16 Last Admin: 01/17/19 00:39 Dose: 5 mls/min Documented by: [id number] Sodium Chloride (Nss 1000ml) 1,000 mls @ 40 mls/hr IV .Q24H VALERIE Stop: 02/16/19 02:23 Last Infusion: 01/17/19 03:41 Dose: 0 mls/hr Documented by: [id number] Infusion: 01/17/19 03:38 Dose: 40 mls/hr Documented by: [id number] Admin: 01/17/19 03:06 Dose: 40 mls/hr Documented by: [id number] Ioversol (Optiray 320 100ml) 100 ml IV ONCE PRN PRN Reason: Interaction Checking Stop: 01/21/19 00:39 Last Admin: 01/17/19 00:40 Dose: 95 ml Documented by: [id number] Tramadol HCl (Ultram) 25 mg PO NOW STA Stop: 01/17/19 01:29 Last Admin: 01/17/19 01:39 Dose: Not Given Documented by: [id number] Medical Decision Making Differential Diagnosis The differential diagnosis includes: cardiac disease, pancreas diseases, GI bleed, gallbladder disease, electrolyte or metabolic imbalance, and infection. Medical Records Attestation: I reviewed the patient's medical records. Home Medications Current Medication List: was personally reviewed by me Laboratory Data Attestation: I reviewed the patient's lab results. Result diagrams: 01/17/19 05:29 01/17/19 05:29 Lab Results 01/16/19 01/16/19 01/16/19 Range/Units 20:39 20:39 20:39 WBC 7.03 (4.8-10.8) K/uL RBC 4.60 L (4.7-6.1) M/uL Hgb 14.7 (14.0-18.0) g/dL Hct 43.3 (42-52) % MCV 94.1 (80-100) fL MCH 32.0 (25-34) pg MCHC 33.9 (32-36) g/dL RDW Std Deviation 43.7 (36.4-46.3) fL RDW Coeff of Pedro 12.7 (11.5-14.5) % Plt Count 165 (130-400) K/uL MPV 11.3 H (7.4-10.4) fL Immature Gran % (Auto) 0.3 % Neut % (Auto) 61.3 % Lymph % (Auto) 28.7 % Sullivan % (Auto) 7.7 % Eos % (Auto) 1.7 % Baso % (Auto) 0.3 % Immature Gran # (Auto) 0.02 (0.00-0.02) K/uL Neut # (Auto) 4.31 (1.4-6.5) K/uL Lymph # (Auto) 2.02 (1.2-3.4) K/uL Sullivan # (Auto) 0.54 (0.11-0.59) K/uL Eos # (Auto) 0.12 (0-0.5) K/uL Baso # (Auto) 0.02 (0-0.2) K/uL PT 14.8 H (9.0-12.0) Seconds INR 1.5 H (0.9-1.1) APTT 29.1 (21.0-31.0) Seconds PTT Ratio 1.1 Sodium 138 (136-145) mmol/L Potassium 4.5 (3.5-5.1) mmol/L Chloride 105 (98-107) mmol/L Carbon Dioxide 28 (21-32) mmol/L Anion Gap 5.0 (3-11) BUN 19 H (7-18) mg/dl Creatinine 0.88 (0.6-1.4) mg/dl Est Cr Clr Drug Dosing 106.1 ml/min Est GFR ( Amer) 106.7 Est GFR (Non-Af Amer) 92.1 BUN/Creatinine Ratio 21.9 H (10-20) Glucose 102 H (70-99) mg/dl Calcium 9.2 (8.5-10.1) mg/dl Magnesium 2.1 (1.8-2.4) mg/dl Total Bilirubin 0.6 (0.2-1) mg/dl AST 23 (15-37) U/L ALT 45 (12-78) U/L Alkaline Phosphatase 50 (45-117) U/L Troponin I < 0.015 (0-0.045) ng/ml NT-Pro-B Natriuret Pep 93 (0-900) pg/ml Total Protein 6.8 (6.4-8.2) gm/dl Albumin 4.1 (3.4-5.0) gm/dl Globulin 2.7 (2.5-4.0) gm/dl Albumin/Globulin Ratio 1.5 (0.9-2) Lipase 98 (73-393) U/L Urine Color Urine Appearance (Clear) Urine pH (4.5-7.5) Ur Specific [place] (1.000-1.030) Urine Protein (Negative) Urine Glucose (UA) (Negative) Urine Ketones (Negative) Urine Blood (Negative) Urine Nitrite (Negative) Urine Bilirubin (Negative) Urine Urobilinogen (Negative) Ur Leukocyte Esterase (Negative) Urine WBC (Auto) (0-5) /hpf Urine RBC (Auto) (0-4) /hpf U Hyaline Cast (Auto) (0-5) /lpf U Epithel Cells (Auto) (0-5) /lpf Urine Bacteria (Auto) (Negative) Blood Type Antibody Screen 01/16/19 01/16/19 01/17/19 Range/Units 20:39 23:40 00:30 WBC (4.8-10.8) K/uL RBC (4.7-6.1) M/uL Hgb 14.4 (14.0-18.0) g/dL Hct 41.2 L (42-52) % MCV (80-100) fL MCH (25-34) pg MCHC (32-36) g/dL RDW Std Deviation (36.4-46.3) fL RDW Coeff of Pedro (11.5-14.5) % Plt Count (130-400) K/uL MPV (7.4-10.4) fL Immature Gran % (Auto) % Neut % (Auto) % Lymph % (Auto) % Sullivan % (Auto) % Eos % (Auto) % Baso % (Auto) % Immature Gran # (Auto) (0.00-0.02) K/uL Neut # (Auto) (1.4-6.5) K/uL Lymph # (Auto) (1.2-3.4) K/uL Sullivan # (Auto) (0.11-0.59) K/uL Eos # (Auto) (0-0.5) K/uL Baso # (Auto) (0-0.2) K/uL PT (9.0-12.0) Seconds INR (0.9-1.1) APTT (21.0-31.0) Seconds PTT Ratio Sodium (136-145) mmol/L Potassium (3.5-5.1) mmol/L Chloride (98-107) mmol/L Carbon Dioxide (21-32) mmol/L Anion Gap (3-11) BUN (7-18) mg/dl Creatinine (0.6-1.4) mg/dl Est Cr Clr Drug Dosing ml/min Est GFR ( Amer) Est GFR (Non-Af Amer) BUN/Creatinine Ratio (10-20) Glucose (70-99) mg/dl Calcium (8.5-10.1) mg/dl Magnesium (1.8-2.4) mg/dl Total Bilirubin (0.2-1) mg/dl AST (15-37) U/L ALT (12-78) U/L Alkaline Phosphatase (45-117) U/L Troponin I (0-0.045) ng/ml NT-Pro-B Natriuret Pep (0-900) pg/ml Total Protein (6.4-8.2) gm/dl Albumin (3.4-5.0) gm/dl Globulin (2.5-4.0) gm/dl Albumin/Globulin Ratio (0.9-2) Lipase (73-393) U/L Urine Color Dark Yellow Urine Appearance Clear (Clear) Urine pH 6.5 (4.5-7.5) Ur Specific [place] 1.024 (1.000-1.030) Urine Protein Negative (Negative) Urine Glucose (UA) Negative (Negative) Urine Ketones Negative (Negative) Urine Blood Negative (Negative) Urine Nitrite Negative (Negative) Urine Bilirubin Negative (Negative) Urine Urobilinogen Negative (Negative) Ur Leukocyte Esterase Trace H (Negative) Urine WBC (Auto) 1-5 (0-5) /hpf Urine RBC (Auto) 0-4 (0-4) /hpf U Hyaline Cast (Auto) 1-5 (0-5) /lpf U Epithel Cells (Auto) 0-5 (0-5) /lpf Urine Bacteria (Auto) Negative (Negative) Blood Type A Positive Antibody Screen NEGATIVE Imaging Data Radiologist's Impression: Radiology results as stated below per my review and the radiologist's interpretation: XR chest 1V portable CLINICAL HISTORY: 63 years-old Male presenting with chest pain. TECHNIQUE: Portable upright AP view of the chest was obtained. COMPARISON: 05/17/2016. FINDINGS: Interval placement of a left subclavian pacer with leads to the right atrium and right ventricular apex. Atherosclerosis of the aortic arch. Cardiac silhouette mildly enlarged. Pulmonary vasculature is only minimally engorged. Elevation of the left hemidiaphragm new from prior. Minimal left basilar [place]. No large effusion or pneumothorax. Degenerative changes of the thoracic spine. Upper abdomen normal. IMPRESSION: 1. Mild cardiomegaly and minimal volume overload. No advanced congestive change or pulmonary edema. 2. Minimal left basilar atelectasis secondary to elevated left hemidiaphragm. Electronically signed by: Thomas Govea M.D. 01/16/2019 9:20 PM ECG Data Attestation: I personally reviewed and interpreted this ECG as follows: Indication: abdominal pain Rate (beats per minute): 71 Rhythm: other (atrial paced rhythm) Findings: + other (low voltage); no acute ischemic change Comparison ECG Date: from (05/25/2016) Change: the following changes noted (Paced rhythm noted) Blood Pressure Blood Pressure Findings: Elevated blood pressure Blood Pressure Disposition: further management by hospitalist [facility] Narrative This patient comes in as described above. He was placed in room B 11. He has been having black stool as well as right upper abdominal pain. He has been followed by Dr. Mireles. He was recently diagnosed with peptic ulcer disease. He also had ultrasound which showed pancreatic masses. He cannot have an MRI because he has a pacemaker in. He has had continuing pain in his right upper abdomen, he had cardiac stents placed recently. Extensive work-up was obtained. The EKG does not show acute ischemic changes. troponin is not elevated. He has nothing to suggest acute cardiac or pulmonary disease. He has no elevated white count his hemoglobin is stable. He did bring a stool sample in from home and this was tested guaiac negative. He has no elevations lipase to suggest pancreatitis. he has no findings to suggest hepatitis. I am concerned that he is on anticoagulation with both Plavix and Coumadin also is having significant abdominal pain and has pancreatic masses which need to be further evaluated. I do think he needs to be admitted/observe and have consulted Dr. Garsia to see him in the ER for these measures. Impression & Plan Abdominal pain, RUQ, Pancreatic mass, Melena, Current use of long term care pharmacist anticoagulation Discharge Plan Visit Data *Final* Discharge Date/Time: 01/17/19 01:55 Chief Complaint: Abdominal Pain Stated Complaint: NAUSEAS DIZZINESS ED Provider: Demetrius Cleary Discharge Problem: Abdominal pain, RUQ, Pancreatic mass, Melena, Current use of residential anticoagulation Patient Disposition: Admitted As Inpatient Discharge Instructions Interventions: ED Discharge Assessment Last Done: 01/17/19 01:55 The scribe's documentation has been prepared under my direction and personally reviewed by me in its entirety. I confirm that the note above accurately reflects all work, treatment, procedures, and medical decision making performed by me.
[2019-01-17] MEDS ORDERED: TRAMADOL HCL 50 MG TABLET PO STA (01:28)
--- NOTE | 2019-01-17 01:29 | History & Physical Report ---
Date of Service January 17, 2019 Assessment & Plan (1) Abdominal pain, RUQ: w/ black stool passage UGIB versus Bismuth side effect, H. pylori infection ongoing Rx Right upper quadrant pain of 4 months duration with gallbladder polyp/pancreatic subcentimeter masses on outpatient abdominal ultrasound hx CAD status multiple stents (most recent 08/2018), SSS PPM on anticoagulation on Coumadin, INR subtherapeutic hypertension, stable steroid-dependent COPD as per records, ongoing tobacco abuse, DM2 insulin requiring, well-controlled as of recent outpatient hemoglobin A1c of 6.9 last July 2018 bipolar disorder/PTSD, at baseline history Lyme disease chronic pain on narcotics OBS Medical telemetry IV PPI for now for possible UGIB Trend H&H, transfuse PRBC if hemoglobin less than 8 (hx CAD) Hold Coumadin for now Continue DAPT for recent stent GI consult RE worsening right upper quadrant pain, possible U GIB (G GI directed patient to the ER.) ISS BG goal 140-180, update hemoglobin A1c Nicotine patch DVT prophylaxis. SCDs while Coumadin on hold and INR subtherapeutic (RE possibl e GI bleed) Full code . History of Present Illness Chief Complaint: abdominal pain, black stools Primary Care Provider: Justin Crook, History obtained from patient and records. Medical history significant for CAD status multiple stents (most recent 08/2018), SSS PPM on anticoagulation on Coumadin, hypertension, hyperlipidemia, steroid-dependent COPD as per records, ongoing tobacco abuse, DM2 insulin requiring, bipolar disorder/PTSD, H. pylori ongoing Rx, history Lyme disease, chronic pain on narcotics. Recent confinement at [facility] 2017 under Psychiatry service for depression. 4 months history of intermittent achy right upper quadrant pain described as burning worse after eating with radiation to the right flank reminiscent of stomach ulcer. Patient seen by [facility] last week. Ultrasound of the abdomen showed hepatic steatosis, possible gallbladder polyp, hypoechoic pancreatic subcentimeter masses. Contrast enhanced abdominal MRI/MRCP suggested. Stools positive for H. pylori as per records. Patient prescribed Flagyl, Tetracycline, PPI, bismuth regimen for H. pylori disease. Patient noted subsequent worsening of r sharp ight upper quadrant pain associated with dizziness, weakness symptoms. Black stools noted at home. No emesis. No NSAID intake. Transient achy left-sided chest pain nonradiating with shortness of breath. Patient directed to the ER by GI service. At the ER, patient received IV Protonix bolus for possible UGI B. Stool Hemoccult done at the ER was negative. Medical History as above Surgical History : Pacemaker, appendectomy Family History :Breast cancer, heart disease Personal/Social history : 1/2 pack daily, occasional EtOH intake, disabled Allergies Allergy/AdvReac Type Severity Reaction Status Date / Time capsaicin AdvReac Unknown RASH WITH Verified 01/16/19 23:22 JOINT SWELLING-CAN TAKE ASPIRIN diclofenac AdvReac Unknown RASH WITH Verified 01/16/19 23:22 JOINT SWELLING-CAN TAKE ASPIRIN Diclopak AdvReac Unknown RASH WITH Verified 03/18/16 16:31 JOINT SWELLING-CAN TAKE ASPIRIN Home Medications Home Medications Medication Instructions Recorded Confirmed Type Lantus U-100 Insulin 10 unit SUBCUT QPM 01/16/19 01/16/19 History Lantus U-100 Insulin 20 unit SUBCUT QAM 01/16/19 01/16/19 History Probiotic 10 cell PO DAILY 01/16/19 01/16/19 History albuterol sulfate [Ventolin HFA] 2 puff INHALATION QID PRN 01/16/19 01/16/19 History aspirin [Aspir-81] 81 mg PO DAILY 01/16/19 01/16/19 History atenolol 25 mg PO DAILY 01/16/19 01/16/19 History baclofen 10 mg PO BID PRN 01/16/19 01/16/19 History bismuth subsalicylate [Bismuth] 524 mg PO QID 01/16/19 01/16/19 History calcium carb-mag ox-zinc sulf 1 tab PO DAILY 01/16/19 01/16/19 History clopidogrel [Plavix] 75 mg PO DAILY 01/16/19 01/16/19 History coQ10 (ubiquinol) 200 mg PO TID 01/16/19 01/16/19 History escitalopram oxalate [Lexapro] 20 mg PO DAILY 01/16/19 01/16/19 History fluticasone propion-salmeterol 1 inh INHALATION BID 01/16/19 01/16/19 History [Advair Diskus] fluticasone propionate [Flonase 2 spray INTRANASAL DAILY 01/16/19 01/16/19 History Allergy Relief] furosemide [Lasix] 20 mg PO DAILY 01/16/19 01/16/19 History gabapentin 300 mg PO BID 01/16/19 01/16/19 History hydrocodone-acetaminophen 1 tab PO BID PRN 01/16/19 01/16/19 History insulin lispro [Humalog KwikPen 0 unit SUBCUT TID 01/16/19 01/16/19 History Insulin] ipratropium-albuterol 3 ml INHALATION Q6 PRN 01/16/19 01/16/19 History isosorbide mononitrate 15 mg PO DAILY 01/16/19 01/16/19 History lorazepam 1 mg PO DAILY PRN 01/16/19 01/16/19 History metronidazole [Flagyl] 500 mg PO TID 01/16/19 01/16/19 History montelukast [Singulair] 10 mg PO DAILY 01/16/19 01/16/19 History morphine 15 mg PO TID PRN 01/16/19 01/16/19 History multivitamin 1 tab PO DAILY 01/16/19 01/16/19 History pantoprazole 40 mg PO DAILY 01/16/19 01/16/19 History polyethylene glycol 3350 [Miralax] 17 g PO DAILY PRN 01/16/19 01/16/19 History potassium chloride 20 meq PO DAILY 01/16/19 01/16/19 History tetracycline 500 mg PO Q6H 01/16/19 01/16/19 History trazodone 50 mg PO HS PRN 01/16/19 01/16/19 History warfarin 5 mg PO 4XWK 01/16/19 01/16/19 History warfarin 7.5 mg PO 3XWK 01/16/19 01/16/19 History dicyclomine 10 mg PO TID PRN #30 cap 01/17/19 Rx Past Med/Surg History Medical History Paralysis of diaphragm (Chronic Unknown) HTN (hypertension) (Chronic) Insomnia (Chronic) Depression, recurrent (Chronic) PTSD (post-traumatic stress disorder) (Chronic) Personality disorder (Chronic) "With narcissistic, borderline, and avoidant traits" Chest pain (Acute) COPD exacerbation Surgical History Stented coronary artery (Resolved) "stent x 7 from 7845-6148" History of appendectomy (Resolved) "11/06/13" Social History Preferred Language: Slovenian Communication Ability: Effective Shipping Inspector Required: No Beliefs That Will Affect Care: None Current Living Situation: Alone Other Information That Helps Us Care for You: No Feels Safe at Home: Yes Safety Concerns: Feels Safe At This Time Smoking Status: Current every day smoker Tobacco Type: cigarettes ; Do You Dip or Chew Tobacco: No ; Second Hand Exposure: No ; Tobacco Cessation Education Requested by Patient: No Hx Alcohol Use: No Hx Substance Use: No Review of Systems Review of Systems: As per HPI, all 10 systems reviewed, all other ROS negative Physical Exam Physical Exam: GENERAL: Slightly anxious, obese, comfortable, no respiratory distress SKIN: Normal color, warm HEENT: [place] palpebral conjunctivae, no ptosis, dry buccal mucosa NECK : Supple, short neck, no tenderness CHEST : CTA, no tenderness HEART : RRR, systolic murmur ABDOMEN: Some distention, nontender EXTREMITIES : No LE swelling/tenderness, no other conspicuous deformities noted NEUROLOGIC : Coherent, no facial asymmetry, no other gross focality Results & Data Vital Signs (Past 12 Hours) Vital Signs Temp Pulse Resp BP Pulse Ox 01/17/19 01:00 63 13 143/86 H 97 01/17/19 00:32 64 18 139/84 98 01/17/19 00:30 63 20 139/84 98 01/17/19 00:00 60 12 135/82 97 01/16/19 23:30 61 16 139/95 97 01/16/19 23:00 63 16 149/100 H 98 01/16/19 22:30 61 21 126/86 97 01/16/19 22:00 64 19 118/84 96 01/16/19 21:30 63 15 123/84 96 01/16/19 21:13 62 18 95 01/16/19 21:11 61 14 119/70 96 01/16/19 19:08 36.8 C 86 16 120/77 98 Laboratory Results Laboratory Results WBC 7.03 K/uL (4.8-10.8) 01/16/19 20:39 RBC 4.60 M/uL (4.7-6.1) L 01/16/19 20:39 Hgb 14.4 g/dL (14.0-18.0) 01/17/19 00:30 Hct 41.2 % (42-52) L 01/17/19 00:30 MCV 94.1 fL (80-100) 01/16/19 20:39 MCH 32.0 pg (25-34) 01/16/19 20:39 MCHC 33.9 g/dL (32-36) 01/16/19 20:39 RDW Std Deviation 43.7 fL (36.4-46.3) 01/16/19 20:39 RDW Coeff of Pedro 12.7 % (11.5-14.5) 01/16/19 20:39 Plt Count 165 K/uL (130-400) 01/16/19 20:39 MPV 11.3 fL (7.4-10.4) H 01/16/19 20:39 Immature Gran % (Auto) 0.3 % 01/16/19 20:39 Neut % (Auto) 61.3 % 01/16/19 20:39 Lymph % (Auto) 28.7 % 01/16/19 20:39 [place] % (Auto) 7.7 % 01/16/19 20:39 Eos % (Auto) 1.7 % 01/16/19 20:39 Baso % (Auto) 0.3 % 01/16/19 20:39 Immature Gran # (Auto) 0.02 K/uL (0.00-0.02) 01/16/19 20:39 Neut # (Auto) 4.31 K/uL (1.4-6.5) 01/16/19 20:39 Lymph # (Auto) 2.02 K/uL (1.2-3.4) 01/16/19 20:39 [place]aines # (Auto) 0.54 K/uL (0.11-0.59) 01/16/19 20:39 Eos # (Auto) 0.12 K/uL (0-0.5) 01/16/19 20:39 Baso # (Auto) 0.02 K/uL (0-0.2) 01/16/19 20:39 PT 14.8 Seconds (9.0-12.0) H 01/16/19 20:39 INR 1.5 (0.9-1.1) H 01/16/19 20:39 APTT 29.1 Seconds (21.0-31.0) 01/16/19 20:39 PTT Ratio 1.1 01/16/19 20:39 Sodium 138 mmol/L (136-145) 01/16/19 20:39 Potassium 4.5 mmol/L (3.5-5.1) 01/16/19 20:39 Chloride 105 mmol/L (98-107) 01/16/19 20:39 Carbon Dioxide 28 mmol/L (21-32) 01/16/19 20:39 Anion Gap 5.0 (3-11) 01/16/19 20:39 BUN 19 mg/dl (7-18) H 01/16/19 20:39 Creatinine 0.88 mg/dl (0.6-1.4) 01/16/19 20:39 Est Cr Clr Drug Dosing 106.1 ml/min 01/16/19 20:39 Est GFR ( Amer) 106.7 01/16/19 20:39 Est GFR (Non-Af Amer) 92.1 01/16/19 20:39 BUN/Creatinine Ratio 21.9 (10-20) H 01/16/19 20:39 Glucose 102 mg/dl (70-99) H 01/16/19 20:39 Calcium 9.2 mg/dl (8.5-10.1) 01/16/19 20:39 Magnesium 2.1 mg/dl (1.8-2.4) 01/16/19 20:39 Total Bilirubin 0.6 mg/dl (0.2-1) 01/16/19 20:39 AST 23 U/L (15-37) 01/16/19 20:39 ALT 45 U/L (12-78) 01/16/19 20:39 Alkaline Phosphatase 50 U/L (45-117) 01/16/19 20:39 Troponin I < 0.015 ng/ml (0-0.045) 01/16/19 20:39 NT-Pro-B Natriuret Pep 93 pg/ml (0-900) 01/16/19 20:39 Total Protein 6.8 gm/dl (6.4-8.2) 01/16/19 20:39 Albumin 4.1 gm/dl (3.4-5.0) 01/16/19 20:39 Globulin 2.7 gm/dl (2.5-4.0) 01/16/19 20:39 Albumin/Globulin Ratio 1.5 (0.9-2) 01/16/19 20:39 Lipase 98 U/L (73-393) 01/16/19 20:39 Urine Color Dark Yellow 01/16/19 23:40 Urine Appearance Clear (Clear) 01/16/19 23:40 Urine pH 6.5 (4.5-7.5) 01/16/19 23:40 Ur Specific [place] 1.024 (1.000-1.030) 01/16/19 23:40 Urine Protein Negative (Negative) 01/16/19 23:40 Urine Glucose (UA) Negative (Negative) 01/16/19 23:40 Urine Ketones Negative (Negative) 01/16/19 23:40 Urine Blood Negative (Negative) 01/16/19 23:40 Urine Nitrite Negative (Negative) 01/16/19 23:40 Urine Bilirubin Negative (Negative) 01/16/19 23:40 Urine Urobilinogen Negative (Negative) 01/16/19 23:40 Ur Leukocyte Esterase Trace (Negative) H 01/16/19 23:40 Urine WBC (Auto) 1-5 /hpf (0-5) 01/16/19 23:40 Urine RBC (Auto) 0-4 /hpf (0-4) 01/16/19 23:40 U Hyaline Cast (Auto) 1-5 /lpf (0-5) 01/16/19 23:40 U Epithel Cells (Auto) 0-5 /lpf (0-5) 01/16/19 23:40 Urine Bacteria (Auto) Negative (Negative) 01/16/19 23:40 Blood Type A Positive 01/16/19 20:39 Antibody Screen NEGATIVE 01/16/19 20:[address] abdomen pelvis initial read: No radioactive gallstones or pancreatitis. Fatty liver 15 mm renal nodule left Chest x-ray : 1. Mild cardiomegaly and minimal volume overload. No advanced congestive change or pulmonary edema. 2. Minimal left basilar atelectasis secondary to elevated left hemidiaphragm. EKG as per my interpretation : Rate 70, paced rhythm
[2019-01-17] MEDS ORDERED: HYDROCODONE/ACETAMOPHEN 5/325MG TAB PO STA (01:38)
[2019-01-17] MEDS ORDERED: DEXTROSE 50% 50 ML SYRINGE IV PRN (02:24)
[2019-01-17] MEDS ORDERED: BACLOFEN 10 MG TAB PO PRN (02:24)
[2019-01-17] MEDS ORDERED: PROMETHAZINE HCL 12.5 MG in SODIUM CHLORIDE 0.9% 50 ML IV PRN (02:24)
[2019-01-17] MEDS ORDERED: GLUCAGON FOR INJ 1 MG VIAL SQ PRN (02:24)
[2019-01-17] MEDS ORDERED: HYDROCODONE/ACETAMINOPHEN 10/325 TAB PO PRN (02:24)
[2019-01-17] MEDS ORDERED: ACETAMINOPHEN 325 MG TAB PO PRN (02:24)
[2019-01-17] MEDS ORDERED: MoRPHine SULFATE IR 15 MG TAB (IMMEDIATE RELEASE) PO PRN (02:24)
[2019-01-17] MEDS ORDERED: GLUCOSE 40% GEL 15 GM TUBE PO PRN (02:24)
[2019-01-17] MEDS ORDERED: LORazepam 0.25 MG/0.5 ML VIAL IV PRN (02:24)
[2019-01-17] MEDS ORDERED: GLUCOSE 10 TABS/TUBE PO PRN (02:24)
[2019-01-17] MEDS ORDERED: CARBOHYDRATES FOR HYPOGLYCEMIA PO PRN (02:24)
[2019-01-17] MEDS ORDERED: TRAZODONE HCL 50 MG TAB PO PRN (02:24)
[2019-01-17] MEDS ORDERED: NITROGLYCERIN SL 0.4 MG/TAB TAB SL PRN (02:24)
[2019-01-17] MEDS ORDERED: SODIUM CHLORIDE 0.9% 1000ML 1,000 ML IV SCH (02:24)
[2019-01-17] MEDS ORDERED: POLYETHYLENE (MIRALAX) 17 GM PACK PO PRN (02:24)
[2019-01-17] MEDS ORDERED: MoRPHine SULFATE 4 MG/ML 1 ML CARP\\VIAL IV PRN (02:24)
[2019-01-17] MEDS ORDERED: LORazepam 1 MG TAB PO PRN (02:35)
[2019-01-17] MEDS ORDERED: NICOTINE 14 MG/24 HR PATCH TD SCH (03:00)
[2019-01-17] MEDS: INSULIN ASPART 100 UNITS/ML 3 ML PEN SC SCH ×3 (03:16→12:02)
[2019-01-17] MEDS ORDERED: D5W AND NSS 1,000 ML IV SCH (03:30)
[2019-01-17 06:19] LABS: Basophils # (auto) 0.03 K/uL (0-0.2); Basophils % (auto) 0.4 %; Eosinophils # (auto) 0.17 K/uL (0-0.5); Eosinophils % (auto) 2.5 %; Hematocrit (blood only) 41.6 % (42-52); Hemoglobin 14.2 g/dL (14.0-18.0); Immature Granulocytes # (auto) 0.01 K/uL (0.00-0.02); Immature Granulocytes % (auto) 0.1 %; Lymphocytes # (auto) 2.51 K/uL (1.2-3.4); Mean Corpuscular Hemoglobin 32.1 pg (25-34); Mean Corpuscular Hgb Conc 34.1 g/dL (32-36); Mean Corpuscular Volume 94.1 fL (80-100); Mean Platelet Volume 11.2 fL (7.4-10.4); Monocytes # (auto) 0.52 K/uL (0.11-0.59); Monocytes % (auto) 7.7 %; Neutrophils # (auto) 3.54 K/uL (1.4-6.5); Neutrophils % (auto) 52.3 %; Platelet Count 144 K/uL (130-400); RDW Coefficient of Variation 12.9 % (11.5-14.5); RDW Standard Deviation 44.3 fL (36.4-46.3); Red Blood Count 4.42 M/uL (4.7-6.1); White Blood Count 6.78 K/uL (4.8-10.8)
[2019-01-17 06:25] LABS: INR 1.6 (0.9-1.1); Prothrombin Time 15.6 Seconds (9.0-12.0)
--- NOTE | 2019-01-17 06:38 | CT Scan Report ---
CT abd pelvis IV con only CT DOSE: 966.07 mGy.cm HISTORY: Pain abd pain TECHNIQUE: Multiaxial CT images of the abdomen and pelvis were performed following the use of intrave nous contrast. A dose lowering technique was utilized adhering to the principles of ALARA. COMPARISON STUDY: 11/08/2014 FINDINGS: Lung bases are clear. Mild chronic pleural reactive change left base. Fatty replacement of the liver. Gallbladder is unremarkable. Kidneys negative for hydronephrosis. Bowel pattern is considered nonobstructive. Scattered sigmoid diverticuli with no evidence for acute diverticulitis. IMPRESSION: No acute process in the abdomen or pelvis. The above report was generated using voice recognition software. It may contain grammatical, syntax or spelling errors. Electronically signed by: George Chaudhary M.D. 01/17/2019 6:37 AM
[2019-01-17 06:52] LABS: BUN Creatinine Ratio 22.8 (10-20); Blood Urea Nitrogen 17 mg/dl (7-18); Calcium 8.8 mg/dl (8.5-10.1); Carbon Dioxide 29 mmol/L (21-32); Chloride 104 mmol/L (98-107); Creatinine Clr Calc Pharmacy 124.5 ml/min; Est GFR (African American) 113.9; Est GFR (Non-African American) 98.3; Glucose 90 mg/dl (70-99); Potassium 3.9 mmol/L (3.5-5.1); Sodium 138 mmol/L (136-145)
[2019-01-17 06:56] LABS: Troponin I < 0.015 ng/ml (0-0.045)
[2019-01-17] MEDS: metroNIDAZOLE 500 MG TAB PO SCH ×2 (07:44→13:32)
[2019-01-17] MEDS: BISMUTH SUBSALICYLATE 262 MG CHEW PO SCH ×2 (07:44→13:33)
[2019-01-17 08:39] LABS: Estimated Average Glucose 151 mg/dl; Hemoglobin A1C 6.9 % (4.5-5.6)
[2019-01-17] MEDS ORDERED: MULTIVITAMIN TAB PO SCH (09:00)
[2019-01-17] MEDS ORDERED: MONTELUKAST SODIUM 10 MG TABLET PO SCH (09:00)
[2019-01-17] MEDS ORDERED: CALCIUM CARB MAG OX ZINC SULF PO SCH (09:00)
[2019-01-17] MEDS ORDERED: ASPIRIN 81 MG ECTAB PO SCH (09:00)
[2019-01-17] MEDS ORDERED: FLUTICASONE PROPIONATE NA SPR 16 GM BTL SCH (09:00)
[2019-01-17] MEDS ORDERED: FLUTICASONE/SALMETEROL (ADVAIR) 500/50 INH 14 PUFF INH SCH (09:00)
[2019-01-17] MEDS ORDERED: PANTOprazole 40 MG in SYRINGE 0 ML IV SCH (09:00)
[2019-01-17] MEDS ORDERED: ESCITALOPRAM OXALATE 20 MG TAB PO SCH (09:00)
[2019-01-17] MEDS ORDERED: LACTOBACILLUS ACIDOPHILUS CELL PO SCH (09:00)
[2019-01-17] MEDS ORDERED: ATENOLOL 25 MG TABLET PO SCH (09:00)
[2019-01-17] MEDS ORDERED: CLOPIDOGREL BISULFATE 75 MG TAB PO SCH (09:00)
[2019-01-17] MEDS ORDERED: GABAPENTIN 300 MG CAP PO SCH (09:00)
[2019-01-17] MEDS ORDERED: ISOSORBIDE MONO EXTENDED REL 30 MG TABCR PO SCH (09:00)
[2019-01-17] MEDS ORDERED: DOXYCYCLINE HYCLATE 100 MG CAP PO SCH (11:00)
[2019-01-17] MEDS ORDERED: Nursing to Pharmacy Communication ONE (11:58)
[2019-01-17] MEDS ORDERED: INSULIN ASPART 100 UNITS/ML 3 ML PEN SC SCH (12:00)
[2019-01-17 12:05] LABS: Hematocrit (blood only) 40.6 % (42-52)
--- NOTE | 2019-01-17 14:02 | Gastrointestinal Consultation ---
Date of Consultation January 17, 2019 Assessment & Plan (1) Abdominal pain, RUQ: (2) Black stool: Pt is a 63 y/o male w RUQ abd pain, bloating, poor appetite, admitted for possible GI bleeding as he reported having black stools. His H/H is normal, stool heme negative (pt brought stool sample from home), no more BMs since admission. He is currently receiving Quadruple therapy for Hpylori infection, and it contains Bismuth. Suspect this is likely causing his stools to be black in color instead of him having GI bleeding. In his workup for RUQ abd pain he is noted to have subcm pancreas lesions. MRI not obtained as he has a pacemaker for Afib. He is also on Coumadin for Afib, hx of CAD s/p cardiac stents, most recently needed stenting 08/2018. I discussed w him about possible EGD/EUS evaluation though would set this up in outpt setting. He is agreeable to this and I can ask our schedulers to offer him appt. I will start him on soft diet, try him on Bentyl prn RUQ abd pain. No contraindication for DC home from GI standpoint and GI to sign off; recall prn . Supervising Physician Co-Signing Physician Notes Pt seen and examined with HUGO Jaimes. Her note reflects my exam and findings. I agree with her impression and plan. No signs of active GI bleeding. Cont full course of H. pylori treatment. Matt Whitehead M.D. History of Present Illness Reason for Consultation: Abdominal pain, black stools Requesting Physician: Dr. Dhaval Parikh Attending Physician: Dr. Matt Whitehead History of Present Illness Pt is a 63 y/o male who was referred to [facility] for RUQ abd pain and black stools. He had been evaluated in GI clinic for his RUQ abd pain associated w bloating and poor appetite, mild constipation. His most recent testing included Hyplori stool Ag which was positive. He is being treated for Hpylori infection with Quadruple therapy (Protonix, Flagyl, Tetracycline, Bismuth). He also had RUQ [facility] which showed hepatic steatosis, possible gallbladder polyp and subcm pancreatic masses. He did have CT abd/pelvis on admission which again demonstrated fatty liver and otherwise no signs of acute/obstructive findings. His H/H is normal. He brought stool in from home and this tested heme negative. He hasn't had any BMs since admitted. This AM reports feeling hungry and when offered liquid diet he expressed preference for solids. Allergies Allergy/AdvReac Type Severity Reaction Status Date / Time capsaicin AdvReac Unknown RASH WITH Verified 01/16/19 23:22 JOINT SWELLING-CAN TAKE ASPIRIN diclofenac AdvReac Unknown RASH WITH Verified 01/16/19 23:22 JOINT SWELLING-CAN TAKE ASPIRIN Diclopak AdvReac Unknown RASH WITH Verified 03/18/16 16:31 JOINT SWELLING-CAN TAKE ASPIRIN Home Medications Home Medications Medication Instructions Recorded Confirmed Type Lantus U-100 Insulin 10 unit SUBCUT QPM 01/16/19 01/16/19 History Lantus U-100 Insulin 20 unit SUBCUT QAM 01/16/19 01/16/19 History Probiotic 10 cell PO DAILY 01/16/19 01/16/19 History albuterol sulfate [Ventolin HFA] 2 puff INHALATION QID PRN 01/16/19 01/16/19 History aspirin [Aspir-81] 81 mg PO DAILY 01/16/19 01/16/19 History atenolol 25 mg PO DAILY 01/16/19 01/16/19 History baclofen 10 mg PO BID PRN 01/16/19 01/16/19 History bismuth subsalicylate [Bismuth] 524 mg PO QID 01/16/19 01/16/19 History calcium carb-mag ox-zinc sulf 1 tab PO DAILY 01/16/19 01/16/19 History clopidogrel [Plavix] 75 mg PO DAILY 01/16/19 01/16/19 History coQ10 (ubiquinol) 200 mg PO TID 01/16/19 01/16/19 History escitalopram oxalate [Lexapro] 20 mg PO DAILY 01/16/19 01/16/19 History fluticasone propion-salmeterol 1 inh INHALATION BID 01/16/19 01/16/19 History [Advair Diskus] fluticasone propionate [Flonase 2 spray INTRANASAL DAILY 01/16/19 01/16/19 His tory Allergy Relief] furosemide [Lasix] 20 mg PO DAILY 01/16/19 01/16/19 History gabapentin 300 mg PO BID 01/16/19 01/16/19 History hydrocodone-acetaminophen 1 tab PO BID PRN 01/16/19 01/16/19 History insulin lispro [Humalog KwikPen 0 unit SUBCUT TID 01/16/19 01/16/19 History Insulin] ipratropium-albuterol 3 ml INHALATION Q6 PRN 01/16/19 01/16/19 History isosorbide mononitrate 15 mg PO DAILY 01/16/19 01/16/19 History lorazepam 1 mg PO DAILY PRN 01/16/19 01/16/19 History metronidazole [Flagyl] 500 mg PO TID 01/16/19 01/16/19 History montelukast [Singulair] 10 mg PO DAILY 01/16/19 01/16/19 History morphine 15 mg PO TID PRN 01/16/19 01/16/19 History multivitamin 1 tab PO DAILY 01/16/19 01/16/19 History pantoprazole 40 mg PO DAILY 01/16/19 01/16/19 History polyethylene glycol 3350 [Miralax] 17 g PO DAILY PRN 01/16/19 01/16/19 History potassium chloride 20 meq PO DAILY 01/16/19 01/16/19 History tetracycline 500 mg PO Q6H 01/16/19 01/16/19 History trazodone 50 mg PO HS PRN 01/16/19 01/16/19 History warfarin 5 mg PO 4XWK 01/16/19 01/16/19 History warfarin 7.5 mg PO 3XWK 01/16/19 01/16/19 History dicyclomine 10 mg PO TID PRN #30 cap 01/17/19 Rx Patient History Medical History Paralysis of diaphragm (Chronic Unknown) HTN (hypertension) (Chronic) Insomnia (Chronic) Depression, recurrent (Chronic) PTSD (post-traumatic stress disorder) (Chronic) Personality disorder (Chronic) "With narcissistic, borderline, and avoidant traits" Chest pain (Acute) COPD exacerbation Surgical History Stented coronary artery (Resolved) "stent x 7 from [id number]" History of appendectomy (Resolved) "11/06/13" Social History Preferred Language: Bulgarian Communication Ability: Effective Shuttle Spotter Required: No Beliefs That Will Affect Care: None Current Living Situation: Alone Other Information That Helps Us Care for You: No Feels Safe at Home: Yes Safety Concerns: Feels Safe At This Time Smoking Status: Current every day smoker Tobacco Type: cigarettes ; Do You Dip or Chew Tobacco: No ; Second Hand Exposure: No ; Tobacco Cessation Education Requested by Patient: No Hx Alcohol Use: No Hx Substance Use: No Review of Systems Review of Systems: All systems reviewed & are unremarkable except as noted in HPI & below Physical Exam Constitutional: WD/WN, vitals as above well groomed, cooperative and comfortable Eyes: PERRL, conjunctivae normal, anicteric sclerae ENMT: external ear and nose normal, oropharynx normal Respiratory: normal respiratory effort, lungs clear to auscultation Cardiovascular: RRR, no murmur, no edema Gastrointestinal (Abdomen): Inspection/Auscultation: + hypoactive bowel sounds Percussion/Palpation: + abdomen tender (RUQ ) and abdomen soft Skin: no rashes, warm and dry no jaundice Psychiatric: A+Ox3, euthymic affect Lymphatic: no lymphedema Results & Data Vital Signs (Past 12 Hours) Vital Signs Temp Pulse Pulse Resp BP Pulse Ox 01/17/19 11:42 36.7 C 60 18 115/73 96 01/17/19 09:00 63 01/17/19 07:45 36.8 C 58 L 18 119/75 96 01/17/19 02:44 36.4 C L 62 18 141/87 H 97 01/17/19 02:43 67
--- NOTE | 2019-01-17 15:07 | Hospitalist Progress Note ---
Date of Service January 17, 2019 Assessment & Plan (1) Abdominal pain, RUQ: RUQ Abdominal pain H/O hypoechoic pancreatic subcentimeter masses CT ABD:No acute process in the abdomen or pelvis. Could not get MRI secondary to pacemaker H/O H. pylori stool antigen positive Currently on H. pylori quadruple treatment Stool for fecal occult negative Plan for EGD/EUS as outpatient Appreciate GI input Plan to start on Bentyl as needed for pain Black colored stool Likely due to Pepto-Bismol No active GI bleeding Hemoglobin stable H/O CAD S/P multiple stents (most recent 08/2018) Continue aspirin, atenolol, Plavix Sick sinus syndrome S/P PPM on anticoagulation on Coumadin INR subtherapeutic Continue Coumadin Monitor INR Hypertension stable continue current meds Steroid-dependent COPD as per records ongoing tobacco abuse Side Puller to quit smoking DM2 insulin requiring well-controlled Hb A1C:6.9 Continue Insulin therapy Bipolar disorder PTSD Stable Continue home meds H/O Lyme disease chronic pain on narcotics Minimize Narcotic use as able DVT Px: On coumadin Code Status Full code Disposition: Plan to discharge home today Subjective Patient is seen and examined at bedside Complains of chronic right upper quadrant pain associated with some nausea Denies any chest pain, shortness of breath, dizziness, vomiting Offers no other complaints Review of Systems Review of Systems: All systems reviewed & are unremarkable except as noted in HPI & below Physical Exam Physical Exam: Physical Exam: Vitals signs as noted above General Appearance:Moderately built and nourished, no apparent distress Head: normocephalic, Atraumatic Eyes: normal inspection, EOMI Neck: supple, Trachea midline Respiratory/Chest: Normal breath sounds, CTA Cardiovascular: S1, S2, No murmur Abdomen/GI:Soft, RUQ tender, no guarding or rigidity, bowel sounds present Extremities/Musculoskelatal:normal inspection, no edema Neurologic/Psych:AAOX3, grossly no focal neurological deficits Skin: normal color, warm Results & Data Vital Signs (Past 12 Hours) Vital Signs Temp Pulse Pulse Resp BP Pulse Ox 01/17/19 11:42 36.7 C 60 18 115/73 96 01/17/19 09:00 63 01/17/19 07:45 36.8 C 58 L 18 119/75 96 Laboratory Results Short CBC 01/16/19 01/17/19 01/17/19 Range/Units 20:39 00:30 05:29 WBC 7.03 6.78 (4.8-10.8) K/uL Hgb 14.7 14.4 14.2 (14.0-18.0) g/dL Hct 43.3 41.2 L 41.6 L (42-52) % Plt Count 165 144 (130-400) K/uL 01/17/19 Range/Units 11:50 WBC (4.8-10.8) K/uL Hgb 14.0 (14.0-18.0) g/dL Hct 40.6 L (42-52) % Plt Count (130-400) K/uL BMP 01/16/19 01/17/19 20:39 05:29 Sodium 138 138 Potassium 4.5 3.9 Chloride 105 104 Carbon Dioxide 28 29 BUN 19 H 17 Creatinine 0.88 0.75 Glucose 102 H 90 Calcium 9.2 8.8 Cardiac Enzymes 01/16/19 01/17/19 Range/Units 20:39 05:29 Troponin I < 0.015 < 0.015 (0-0.045) ng/ml Liver Function 01/16/19 Range/Units 20:39 Total Bilirubin 0.6 (0.2-1) mg/dl AST 23 (15-37) U/L ALT 45 (12-78) U/L Alkaline Phosphatase 50 (45-117) U/L Albumin 4.1 (3.4-5.0) gm/dl Urine 01/16/19 Range/Units 23:40 Urine Color Dark Yellow Urine Appearance Clear (Clear) Urine pH 6.5 (4.5-7.5) Ur Specific [place] 1.024 (1.000-1.030) Urine Protein Negative (Negative) Urine Glucose (UA) Negative (Negative)
--- NOTE | 2019-01-17 15:17 | Discharge Summary ---
Date of Service January 17, 2019 Admission HPI Per Admitting Provider History obtained from patient and records. Medical history significant for CAD status multiple stents (most recent 08/2018), SSS PPM on anticoagulation on Coumadin, hypertension, hyperlipidemia, steroid-dependent COPD as per records, ongoing tobacco abuse, DM2 insulin requiring, bipolar disorder/PTSD, H. pylori ongoing Rx, history Lyme disease, chronic pain on narcotics. Recent confinement at [facility] 2017 under Psychiatry service for depression. 4 months history of intermittent achy right upper quadrant pain described as burning worse after eating with radiation to the right flank reminiscent of stomach ulcer. Patient seen by [facility] last week. Ultrasound of the abdomen showed hepatic steatosis, possible gallbladder polyp, hypoechoic pancreatic subcentimeter masses. Contrast enhanced abdominal MRI/MRCP suggested. Stools positive for H. pylori as per records. Patient prescribed Flagyl, Tetracycline, PPI, bismuth regimen for H. pylori disease. Patient noted subsequent worsening of r sharp ight upper quadrant pain associated with dizziness, weakness symptoms. Black stools noted at home. No emesis. No NSAID intake. Transient achy left-sided chest pain nonradiating with shortness of breath. Patient directed to the ER by GI service. At the ER, patient received IV Protonix bolus for possible UGI B. Stool Hemoccult done at the ER was negative. Admission Exam Per Admitting Provider GENERAL: Slightly anxious, obese, comfortable, no respiratory distress SKIN: Normal color, warm HEENT: [place] palpebral conjunctivae, no ptosis, dry buccal mucosa NECK : Supple, short neck, no tenderness CHEST : CTA, no tenderness HEART : RRR, systolic murmur ABDOMEN: Some distention, nontender EXTREMITIES : No LE swelling/tenderness, no other conspicuous deformities noted NEUROLOGIC : Coherent, no facial asymmetry, no other gross focality Principal Diagnosis Abdominal Pain Discharge Data Allergies Allergy/AdvReac Type Severity Reaction Status Date / Time capsaicin AdvReac Unknown RASH WITH Verified 01/16/19 23:22 JOINT SWELLING-CAN TAKE ASPIRIN diclofenac AdvReac Unknown RASH WITH Verified 01/16/19 23:22 JOINT SWELLING-CAN TAKE ASPIRIN Diclopak AdvReac Unknown RASH WITH Verified 03/18/16 16:31 JOINT SWELLING-CAN TAKE ASPIRIN Consultations 01/16/19 23:52 ED Decision to Admit Stat 01/17/19 02:24 Consult Gastroenterology Routine Procedures Performed CT ABD:No acute process in the abdomen or pelvis. Ordered Studies 01/17/19 00:01 CT abd pelvis IV con only Urgent Hospital Course (1) Abdominal pain, RUQ: RUQ Abdominal pain H/O hypoechoic pancreatic subcentimeter masses CT ABD:No acute process in the abdomen or pelvis. Could not get MRI secondary to pacemaker H/O H. pylori stool antigen positive Currently on H. 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 DM2 insulin requiring well-controlled Hb A1C:6.9 Continue Insulin therapy Bipolar disorder PTSD Stable Continue home meds H/O Lyme disease chronic pain on narcotics Minimize Narcotic use as able DVT Px: On coumadin Code Status Full code Disposition: Plan to discharge home today Total Time Total Time Spent Total Time Spent (In Minutes): 33 minutes Total Time Includes: Examination of the Patient, Discharge Planning, Medication Reconciliation, Communication With Other Providers and Other Discharge Plan Discharge Items Patient Disposition: Home - Self-Care Reason For Visit: ABD PAIN, POSS UGIB Discharge Diagnosis: Abdominal Pain Activity: Resume your previous activity Exercise/Sports: Gradually increase as tolerated Non-emergency contact: Primary Care Provider and Tubing Mill Operator Call non-emergency contact if: you have any medication questions, your symptoms worsen, your pain is not controlled, your pain is worsening, your pain is unusual for you, your pain is concerning for you and you have a fever Follow-up/Referrals: Justin Crook, [Primary Care Provider] - Diet: Carb Consistent or DM2 and Heart Healthy Addtl Attending Provider Instructions: Follow-up with your primary care physician Dr. Philippe Perez on January 22, 2019 at 11 AM Follow-up with your literature teacher Dr. Garcia for EGD/EUS as outpatient as advised Seek immediate medical attention if your symptoms reoccur or worsen Pending Studies at Discharge: No Stand-Alone Forms: Call Back Authorization, [facility], Smoking Cessation Medications and DC Order Prescriptions: New dicyclomine 10 mg capsule 10 mg PO TID PRN (Reason: abdominal pain) Qty: 30 RF: 0 Continued multivitamin Tablet 1 tab PO DAILY RF: 0 tetracycline 500 mg Capsule 500 mg PO Q6H RF: 0 ipratropium-albuterol 0.5 mg-3 mg(2.5 mg base)/3 mL Solution For Nebulization 3 ml INHALATION Q6 PRN (Reason: Shortness Of Breath Or Wheezing) RF: 0 Lantus U-100 Insulin 100 unit/mL Solution 20 unit SUBCUT QAM RF: 0 Lantus U-100 Insulin 100 unit/mL Solution 10 unit SUBCUT QPM RF: 0 trazodone 50 mg Tablet 50 mg PO HS PRN (Reason: Sleep) RF: 0 isosorbide mononitrate 30 mg Tablet Extended Release 24 Hr 15 mg PO DAILY RF: 0 atenolol 25 mg Tablet 25 mg PO DAILY RF: 0 metronidazole [Flagyl] 500 mg Tablet 500 mg PO TID RF: 0 clopidogrel [Plavix] 75 mg Tablet 75 mg PO DAILY RF: 0 hydrocodone-acetaminophen 10-325 mg Tablet 1 tab PO BID PRN (Reason: Pain) RF: 0 aspirin [Aspir-81] 81 mg Tablet,Delayed Release (Dr/Ec) 81 mg PO DAILY RF: 0 baclofen 10 mg Tablet 10 mg PO BID PRN (Reason: Muscle Spasm) RF: 0 pantoprazole 40 mg Tablet,Delayed Release (Dr/Ec) 40 mg PO DAILY RF: 0 warfarin 5 mg Tablet 5 mg PO 4XWK RF: 0 warfarin 5 mg Tablet 7.5 mg PO 3XWK RF: 0 fluticasone propion-salmeterol [Advair Diskus] 500-50 mcg/dose Blister With Device 1 inh INHALATION BID RF: 0 gabapentin 300 mg Capsule 300 mg PO BID RF: 0 bismuth subsalicylate [Bismuth] 262 mg tablet,chewable 524 mg PO QID RF: 0 montelukast [Singulair] 10 mg Tablet 10 mg PO DAILY RF: 0 furosemide [Lasix] 20 mg Tablet 20 mg PO DAILY RF: 0 lorazepam 1 mg Tablet 1 mg PO DAILY PRN (Reason: Anxiety) RF: 0 polyethylene glycol 3350 [Miralax] 17 gram/dose Powder 17 g PO DAILY PRN (Reason: Constipation) RF: 0 albuterol sulfate [Ventolin HFA] 90 mcg/actuation Hfa Aerosol Inhaler 2 puff INHALATION QID PRN (Reason: Shortness Of Breath Or Wheezing) RF: 0 morphine 15 mg Tablet 15 mg PO TID PRN (Reason: Pain) RF: 0 fluticasone propionate [Flonase Allergy Relief] 50 mcg/actuation [place],Suspension 2 spray INTRANASAL DAILY RF: 0 insulin lispro [Humalog KwikPen Insulin] 100 unit/mL Insulin Pen SUBCUT TID RF: 0 escitalopram oxalate [Lexapro] 20 mg Tablet 20 mg PO DAILY RF: 0 coQ10 (ubiquinol) 200 mg Capsule 200 mg PO TID RF: 0 Probiotic 10 billion cell Capsule 10 cell PO DAILY RF: 0 potassium chloride 20 mEq Tablet Extended Release 20 meq PO DAILY RF: 0 calcium carb-mag ox-zinc sulf 333-133-5 mg Tablet 1 tab PO DAILY RF: 0 Discharge Orders: Discharge Order (Routine); Ordered 01/17/19 Ordered By: Tony Vazquez Admission Data Admit Date/Time: 01/17/19 01:38 Attending Provider: Tony Vazquez Admit Provider: Dhaval Parikh Primary Care Provider: Justin Crook Other Providers: Dhaval Parikh ; Neli Reyes ; Mirtha Estrella ; Skylar Merritt ; Bernard Garcia ; Jorge Al ; Sapna Mireles ; Mindy Reina ; Erik Crocker ; Matt Whitehead ; Antonia Mcnally ; Kayy Ybarra ; Crissy Barbosa ; Caitlin Winslow ; Hussain Goodwin Other Interventions: Discharge Summary Assessment (RN) Last Done: 01/17/19 15:39 DC Date/Time DO NOT enter until pt leaves facility: 01/17/19 16:43
== END 2019-01-17 16:43 | disposition home or self-care (01) ==
LOC: 2N 19:00 → ED 19:00 → 2N 01-17 01:55

== ENCOUNTER 2022-01-04 16:19 | Inpatient (IN) ==
[2022-01-04 17:28] LABS: Alanine Aminotransferase 48 U/L (7-52); Alkaline Phosphatase 48 U/L (34-104); Anion Gap 7 (3-11); Aspartate Aminotransferase 29 U/L (13-39); BUN Creatinine Ratio 24.8 (10-20); Bilirubin,Total 0.8 mg/dl (0.2-1.0); Blood Urea Nitrogen 26 mg/dl (6-23); Carbon Dioxide 29 mmol/L (21-32); Chloride 102 mmol/L (98-107); Est GFR (African American) 85.9 ml/min; Est GFR (Non-African American) 74.1 ml/min; Globulin 2.5 gm/dl (2.5-4.0); Glucose 114 mg/dl (70-99(Fasting)); Lipase 33 U/L (11-82); Sodium 138 mmol/L (136-145); Total Protein 7.5 gm/dl (6.0-8.3)
[2022-01-04] MEDS ORDERED: FAMOTIDINE 20MG IV PUSH 20 MG/5 ML SYR IV STA (18:17)
[2022-01-04] MEDS ORDERED: SODIUM CHLORIDE 0.9% 1000ML 1,000 ML IV ONE ×2 (18:18→23:54)
[2022-01-04 18:29] LABS: INR 2.4 (0.9-1.1)
--- NOTE | 2022-01-04 18:33 | Emergency Department Note ---
Impression & Plan Abdominal pain, epigastric, Weakness, Elevated troponin ED Provider Note Provider: Eder Puga MD DATE OF SERVICE: 01/04/2022 CHIEF COMPLAINT: Abdominal pain and nausea, fatigue HISTORY OF PRESENT ILLNESS: Patient is a 66-year-old gentleman extensive past medical history including H. pylori, CAD with A. fib on Coumadin, hypertension, and COPD presenting here today reporting over the past months been developing some pain in the left upper abdomen just below the chest. States over the past week or so has expanded to across the midline of the abdomen to the right upper quadrant and left upper quadrant. Some tenderness. States pain is worse after eating. Denies lower abdominal pain. Some nausea at times. Recently with some bronchitis and URI symptoms and currently completed course of Augmentin and prednisone. Follows with GI and was treated for H. pylori over the summer after EGD and colonoscopy in July. States after finishing this medicine the symptoms have begun to worsen. Feeling lightheaded at times but denies falling or passing out. Denies significant chest pain or shortness of breath. States has not been able to eat or drink much of this worsen his symptoms. Is on chronic pain medicine but states he has been working to wean himself of this. Has tried some Tums without improvement of symptoms REVIEW OF SYSTEMS: A total of 10 review of systems was obtained and negative except as stated above in the HPI. PAST MEDICAL HISTORY: As noted above MEDICATIONS: Reviewed home medications SOCIAL HISTORY: History of smoking PHYSICAL EXAM: GENERAL: alert and oriented in no acute distress on stretcher Head: normocephalic and atraumatic EYES: No injection, discharge or icterus. NECK: Trachea midline. Supple. ENT: Mucous membranes pink and moist. Pharynx without erythema or exudate. LUNGS: Airway patent. No retractions. Breath sounds clear with good air entry bilaterally. HEART: Regular rate and rhythm. No chest wall tenderness with left upper chest pacemaker noted ABDOMEN: Soft with some tenderness in the mid upper to right upper abdomen. Sof t and palpable ventral hernia reducible. No lower abdominal tenderness. Mildly distended. SKIN: Acyanotic, warm, dry, without rashes EXTREMITIES: Without swelling, tenderness or deformity NEUROLOGICAL: No focal deficits. No aphasia. No facial droop or slurred speech. Ambulatory. EKG: Mostly atrially paced rhythm 66 bpm. No PVC noted. No acute ST segment elevation or depression with a QTC of 396. CONTINUOUS CARDIAC MONITORING: was ordered and showed a heart rate of 60s-80s bpm in predominantly atrially paced rhythm occasional PVC 60s to 80s beats per minute Patient's laboratory studies and imaging reviewed. Differential includes Appendicitis, infections, diverticulitis, UTI, obstructio n, mesenteric ischemia, aortic pathology, inflammatory bowel disease, renal colic, PUD, pancreatitis, biliary pathology, hernia, volvulus, constipation, as well as other pathologies. IMPRESSION/MEDICAL DECISION MAKING: Patient with complex past medical history. Recent H. pylori treatment. Curre ntly on Augmentin and steroid to help with bronchitis and URI symptoms. Denies chest pain. Troponin and EKG however were completed. Seems unlikely be intra- abdominal related. Patient states he has had some issues with pancreatitis and gallbladder stones in the past. Evidence of hernias on clinical exam but are reducible and not obviously strangulated. We will complete a CT abdomen pelvis. Basic blood work obtained. No evidence of hepatitis or pancreatitis based on the blood work. Stable renal function. INR therapeutic. Patient's troponin is elevated here. Prior normal sensitivity troponins not elevated in the past. Given location of pain and somewhat concerning; is anticoagulated. Question of given his decreased intake and weakness experience a bit of demand elevation of his troponin. Low suspicion for ACS. INR is therapeutic again. Given significant decreased intake and abdominal symptoms with his cardiac history and some troponin elevation today discussed with him further observation here and the hospitalist was contacted. DIAGNOSIS: Epigastric pain, elevated troponin, nausea, weakness DISPOSITION: Hospitalist will evaluate Patient was agreeable with this plan. Past Med/Surg History Medical History (Updated 01/05/22 @ 00:31 by Eder Puga M.D.) Anxiety and depression Asthma LAST USED RESCUE INHALER>YESTERDAY Atrial fibrillation REASON FOR COUMADIN BPH (benign prostatic hyperplasia) COPD exacerbation Diabetes mellitus, type 2 Fibromyalgia GERD (gastroesophageal reflux disease) History of cardioversion MAY 2018 History of COVID-19 03/2021>BODY ACHES/FEVER *CONT. SOB WITH EXERTION ? RELATED TO COVID History of Helicobacter pylori infection History of pacemaker OCTOBER 2018 - [facility] HTN (hypertension) Hx of myocardial infarction X6; 5 FROM 6800-1255 AND 1 IN 2004 Hyperlipidemia Insomnia Migraine Osteoarthritis Paralysis of diaphragm (Unknown) LEFT DIAPHRAGM (UNKNOWN REASON) Peripheral neuropathy Post traumatic stress disorder Restless leg syndrome Spinal stenosis Ulcerative colitis Surgical History Family history of reaction to anesthesia DAUGHTER-SLOW TO WAKE UP History of Achilles tendon repair LEFT History of appendectomy History of colonoscopy History of ERCP GALL STONES History of esophagogastroduodenoscopy (EGD) History of heart artery stent 8 TOTAL STENTS (LAST ONE PLACED AUGUST 2018 AT [facility] IN [place]) History of permanent cardiac pacemaker placement OCTOBER 2018>MONITORED BY [facility]/DR. 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 Operator Required: No Beliefs That Will Affect Care: None Current Living Situation: Family Current Living Situation Comment: WITH DAUGHTER /HAS AN APARTMENT IN HER HOUSE Feels Safe at Home: Yes Assistive Devices: Glasses and Nebulizer Allergies Allergies Allergy/AdvReac Type Severity Reaction Status Date / Time capsaicin Allergy Intermediate RASH WITH Verified 08/09/21 10:26 JOINT SWELLING-CAN TAKE ASPIRIN diclofenac Allergy Intermediate RASH WITH Verified 08/09/21 10:26 JOINT SWELLING-CAN TAKE ASPIRIN Diclopak AdvReac Unknown RASH WITH Verified 03/18/16 16:31 JOINT SWELLING-CAN TAKE ASPIRIN Home Meds Home Medications Medication Instructions Recorded Confirmed albuterol sulfate 90 mcg/actuation 2 puff inhalation QID PRN 01/16/19 01/04/22 aerosol inhaler (Ventolin HFA) Shortness Of Breath Or Wheezing aspirin 81 mg tablet,delayed 81 mg PO QAM 01/16/19 01/04/22 release (Aspir-) atenolol 25 mg tablet 25 mg PO UD 01/16/19 01/04/22 baclofen 10 mg tablet 10 mg PO BID PRN Muscle Spasm 01/16/19 01/04/22 calcium carbonate 333 mg-magnesium 1 tab PO QAM 01/16/19 01/04/22 oxide 133 mg-zinc sulf 5 mg tablet coQ10 (ubiquinol) 200 mg capsule 200 mg PO QAM 01/16/19 01/04/22 furosemide 20 mg tablet (Lasix) 20 mg PO QAM PRN Edema 01/16/19 01/04/22 ipratropium 0.5 mg-albuterol 3 mg 3 ml inhalation Q6 PRN Shortness 01/16/19 01/04/22 (2.5 mg base)/3 mL nebulization Of Breath Or Wheezing soln montelukast 10 mg tablet 10 mg PO QAM 01/16/19 01/04/22 (Singulair) multivitamin 1 tab PO QAM 01/16/19 01/04/22 pantoprazole 40 mg tablet,delayed 40 mg PO BID 01/16/19 01/04/22 release polyethylene glycol 3350 17 17 g PO DAILY PRN Constipation 01/16/19 01/04/22 gram/dose oral powder (Miralax) warfarin 5 mg tablet 10 mg PO QAM 01/16/19 01/04/22 insulin glargine 100 unit/mL (3 1 unit subcut UD 01/22/19 01/04/22 mL) subcutaneous pen (Basaglar KwikPen U-100 Insulin) nitroglycerin 0.4 mg sublingual 0.4 mg sublingual UD PRN CHEST PAIN 01/22/19 01/04/22 tablet potassium chloride 10 mEq 10 meq PO QAM 01/22/19 01/04/22 capsule,extended release trazodone 50 mg tablet 50 mg PO HS 01/22/19 01/04/22 duloxetine 30 mg capsule,delayed 30 mg PO QAM 03/16/19 01/04/22 release prednisone 10 mg tablet 5 mg PO QAM 03/16/19 01/04/22 insulin aspart U-100 100 unit/mL 1 sliding scale dose subcut 03/22/19 01/04/22 subcutaneous solution (Novolog USEASDIRECTD U-100 Insulin aspart) fluticasone propionate 50 1 spray intranasal DAILY 08/09/21 01/04/22 mcg/actuation nasal spray,suspension hydrocodone 10 mg-acetaminophen 1 tab PO Q6H PRN Severe Pain 08/09/21 01/04/22 325 mg tablet (Scale Score 7-10) hydroxychloroquine 200 mg tablet 400 mg PO QPM 08/09/21 01/04/22 (Plaquenil) loratadine 10 mg chewable tablet 10 mg PO QAM 08/09/21 01/04/22 (Claritin) lorazepam 0.5 mg tablet (Ativan) 0.5 mg PO BID 08/09/21 01/04/22 pregabalin 75 mg capsule (Lyrica) 75 mg PO BID 08/09/21 01/04/22 fluticasone fur. 100 mcg-umeclid 1 inh inhalation DAILY 01/04/22 01/04/22 62.5 mcg-vilant 25 mcg inhalat.powder (Trelegy Ellipta) Results & Data (ED) Vital Signs Vital Signs - 24 hr 01/04/22 16:21 01/04/22 17:59 01/04/22 18:13 Temperature 36.9 C Temperature Source Temporal Artery Scan Pulse Rate 77 Pulse Rate [Right Finger] 86 Pulse Rate from SpO2 Sensor Respiratory Rate 16 20 Respiratory Effort / Characteristics Non-Labored Respiratory Depth Normal Blood Pressure 146/89 H Blood Pressure [Right Arm] 120/81 Blood Pressure Mean 108 Blood Pressure Mean [Right Arm] 94 Pulse Oximetry 98 97 Oxygen Delivery Method Room Air Room Air Room Air Sepsis Recent Fever Within 48 Hours No Sepsis New/Unexplained Change in Mental Status N/A Sepsis Action Taken by Nursing No Action Required 01/04/22 18:59 01/04/22 20:00 01/04/22 22:00 Temperature Temperature Source Pulse Rate Pulse Rate [Right Finger] 97 H 70 72 Pulse Rate from SpO2 Sensor Respiratory Rate 20 18 20 Respiratory Effort / Characteristics Respiratory Depth Blood Pressure Blood Pressure [Right Arm] 120/81 153/90 H 142/80 H Blood Pressure Mean Blood Pressure Mean [Right Arm] 94 111 100 Pulse Oximetry 97 97 99 Oxygen Delivery Method Sepsis Recent Fever Within 48 Hours Sepsis New/Unexplained Change in Mental Status Sepsis Action Taken by Nursing 01/04/22 23:00 01/05/22 00:02 Temperature Temperature Source Pulse Rate 65 67 Pulse Rate [Right Finger] Pulse Rate from SpO2 Sensor 66 54 L Respiratory Rate 19 17 Respiratory Effort / Characteristics Respiratory Depth Blood Pressure 135/91 Blood Pressure [Right Arm] Blood Pressure Mean 105 Blood Pressure Mean [Right Arm] Pulse Oximetry 97 97 Oxygen Delivery Method Room Air Room Air Sepsis Recent Fever Within 48 Hours Sepsis New/Unexplained Change in Mental Status Sepsis Action Taken by Nursing Laboratory Data Result diagrams: 01/04/22 18:31 01/04/22 16:50 Lab Results 01/04/22 01/04/22 01/04/22 Range/Units 16:48 16:50 16:50 WBC Cancelled RBC Cancelled Hgb Cancelled Hct Cancelled MCV Cancelled MCH Cancelled MCHC Cancelled RDW Std Deviation Cancelled RDW Coeff of Pedro Cancelled Plt Count Cancelled MPV Cancelled Immature Gran % (Auto) Cancelled Neut % (Auto) Cancelled Lymph % (Auto) Cancelled [place] % (Auto) Cancelled Eos % (Auto) Cancelled Baso % (Auto) Cancelled Neut # (Auto) Cancelled Lymph # (Auto) Cancelled [place] # (Auto) Cancelled Eos # (Auto) Cancelled Baso # (Auto) Cancelled Immature Gran # (Auto) Cancelled Absolute Nucleated RBC Cancelled Nucleated RBC % (auto) Cancelled Neutrophils % (Manual) Cancelled Band Neutrophils % Cancelled Lymphocytes % (Manual) Cancelled Prolymphocyte % Cancelled Reactive Lymphs % (Man) Cancelled Monocytes % (Manual) Cancelled Eosinophils % (Manual) Cancelled Basophils % (Manual) Cancelled Metamyelocytes % (Man) Cancelled Myelocytes % (Man) Cancelled Promyelocytes % (Man) Cancelled Blast Cells % (Manual) Cancelled Plasma Cell % (Manual) Cancelled Other Cells % Cancelled Nucleated RBC % Cancelled Neutrophils # (Manual) Cancelled Band Neutrophils # Cancelled Total Absolute Neuts Cancelled Lymphocytes # (Manual) Cancelled Prolymphocyte # Cancelled Reactive Lymphs # Cancelled Total Abs Lymphocytes Cancelled Monocytes # (Manual) Cancelled Eosinophils # (Manual) Cancelled Basophils # (Manual) Cancelled Metamyelocytes # (Man) Cancelled Myelocytes # (Manual) Cancelled Promyelocytes # (Man) Cancelled Blast Cells # (Man) Cancelled Plasma Cell # (Manual) Cancelled Other Cells # Cancelled Nucleated RBCs # (Man) Cancelled Hypersegmented Neuts Cancelled Hyposegmented Neuts Cancelled Hypogranular Neuts Cancelled Large Granular Lymphs Cancelled # Lrg Granular Lymphs Cancelled Hairy Cells Cancelled Smudge Cells Cancelled Toxic Granulation Cancelled Toxic Vacuolation Cancelled Dohle Bodies Cancelled Cammie Rods Cancelled Platelet Estimate Cancelled Hypogranular Platelets Cancelled Clumped Platelets Cancelled Giant Platelets Cancelled Platelet Satelliting Cancelled RBC Morphology Cancelled Polychromasia Cancelled Hypochromasia Cancelled Poikilocytosis Cancelled Basophilic Stippling Cancelled Anisocytosis Cancelled Microcytosis Cancelled Macrocytosis Cancelled Spherocytes Cancelled Pappenheimer Bodies Cancelled Sickle Cells Cancelled Target Cells Cancelled Tear Drop Cells Cancelled Ovalocytes Cancelled Stomatocytes Cancelled Jaime-Curran Bodies Cancelled Echinocytes Cancelled Acanthocytes (Spur) Cancelled Rouleaux Cancelled RBC Agglutinates Cancelled Schistocytes Cancelled Sezary Cell Cancelled PT 24.0 H (9.0-12.0) Seconds INR 2.4 H (0.9-1.1) Sodium 138 (136-145) mmol/L Potassium 5.0 (3.5-5.1) mmol/L Chloride 102 (98-107) mmol/L Carbon Dioxide 29 (21-32) mmol/L Anion Gap 7 (3-11) BUN 26 H (6-23) mg/dl Creatinine 1.05 (0.6-1.4) mg/dl Est Cr Clr Drug Dosing Not Reportable Est GFR ( Amer) 85.9 ml/min Est GFR (Non-Af Amer) 74.1 ml/min BUN/Creatinine Ratio 24.8 H (10-20) Glucose 114 H (70-99(Fasting)) mg/dl Calcium 10.0 (8.5-10.1) mg/dl Magnesium (1.7-2.4) mg/dl Total Bilirubin 0.8 (0.2-1.0) mg/dl AST 29 (13-39) U/L ALT 48 (7-52) U/L Alkaline Phosphatase 48 (34-104) U/L Troponin I High Sens (0-20) pg/ml Total Protein 7.5 (6.0-8.3) gm/dl Albumin 5.0 (3.4-5.0) gm/dl Globulin 2.5 (2.5-4.0) gm/dl Albumin/Globulin Ratio 2.0 (0.9-2) Lipase 33 (11-82) U/L Urine Color Urine Appearance (Clear) Urine pH (4.5-7.5) Ur Specific [place] (1.000-1.030) Urine Protein (Negative) Urine Glucose (UA) (Negative) Urine Ketones (Negative) Urine Blood (Negative) Urine Nitrite (Negative) Urine Bilirubin (Negative) Urine Urobilinogen (Negative) Ur Leukocyte Esterase (Negative) SARS-CoV-2, RNA, NAAT (NEGATIVE) Blood Parasites ID Cancelled 01/04/22 01/04/22 01/04/22 Range/Units 16:50 18:31 18:37 WBC 8.89 RBC 4.57 L Hgb 14.9 Hct 42.4 MCV 92.8 MCH 32.6 MCHC 35.1 RDW Std Deviation 42.8 RDW Coeff of Pedro 12.4 Plt Count 196 MPV 10.4 Immature Gran % (Auto) 0.3 Neut % (Auto) 68.0 Lymph % (Auto) 21.5 [place] % (Auto) 8.4 Eos % (Auto) 1.2 Baso % (Auto) 0.6 Neut # (Auto) 6.04 Lymph # (Auto) 1.91 [place] # (Auto) 0.75 Eos # (Auto) 0.11 Baso # (Auto) 0.05 Immature Gran # (Auto) 0.03 H Absolute Nucleated RBC Nucleated RBC % (auto) Neutrophils % (Manual) Band Neutrophils % Lymphocytes % (Manual) Prolymphocyte % Reactive Lymphs % (Man) Monocytes % (Manual) Eosinophils % (Manual) Basophils % (Manual) Metamyelocytes % (Man) Myelocytes % (Man) Promyelocytes % (Man) Blast Cells % (Manual) Plasma Cell % (Manual) Other Cells % Nucleated RBC % Neutrophils # (Manual) Band Neutrophils # Total Absolute Neuts Lymphocytes # (Manual) Prolymphocyte # Reactive Lymphs # Total Abs Lymphocytes Monocytes # (Manual) Eosinophils # (Manual) Basophils # (Manual) Metamyelocytes # (Man) Myelocytes # (Manual) Promyelocytes # (Man) Blast Cells # (Man) Plasma Cell # (Manual) Other Cells # Nucleated RBCs # (Man) Hypersegmented Neuts Hyposegmented Neuts Hypogranular Neuts Large Granular Lymphs # Lrg Granular Lymphs Hairy Cells Smudge Cells Toxic Granulation Toxic Vacuolation Dohle Bodies Cammie Rods Platelet Estimate Hypogranular Platelets Clumped Platelets Giant Platelets Platelet Satelliting RBC Morphology Polychromasia Hypochromasia Poikilocytosis Basophilic Stippling Anisocytosis Microcytosis Macrocytosis Spherocytes Pappenheimer Bodies Sickle Cells Target Cells Tear Drop Cells Ovalocytes Stomatocytes Jaime-Curran Bodies Echinocytes Acanthocytes (Spur) Rouleaux RBC Agglutinates Schistocytes Sezary Cell PT (9.0-12.0) Seconds INR (0.9-1.1) Sodium (136-145) mmol/L Potassium (3.5-5.1) mmol/L Chloride (98-107) mmol/L Carbon Dioxide (21-32) mmol/L Anion Gap (3-11) BUN (6-23) mg/dl Creatinine (0.6-1.4) mg/dl Est Cr Clr Drug Dosing Est GFR ( Amer) ml/min Est GFR (Non-Af Amer) ml/min BUN/Creatinine Ratio (10-20) Glucose (70-99(Fasting)) mg/dl Calcium (8.5-10.1) mg/dl Magnesium (1.7-2.4) mg/dl Total Bilirubin (0.2-1.0) mg/dl AST (13-39) U/L ALT (7-52) U/L Alkaline Phosphatase (34-104) U/L Troponin I High Sens 75.3 H* (0-20) pg/ml Total Protein (6.0-8.3) gm/dl Albumin (3.4-5.0) gm/dl Globulin (2.5-4.0) gm/dl Albumin/Globulin Ratio (0.9-2) Lipase (11-82) U/L Urine Color Urine Appearance (Clear) Urine pH (4.5-7.5) Ur Specific [place] (1.000-1.030) Urine Protein (Negative) Urine Glucose (UA) (Negative) Urine Ketones (Negative) Urine Blood (Negative) Urine Nitrite (Negative) Urine Bilirubin (Negative) Urine Urobilinogen (Negative) Ur Leukocyte Esterase (Negative) SARS-CoV-2, RNA, NAAT NEGATIVE (NEGATIVE) Blood Parasites ID 01/04/22 01/04/22 Range/Units 21:26 21:38 WBC RBC Hgb Hct MCV MCH MCHC RDW Std Deviation RDW Coeff of Pedro Plt Count MPV Immature Gran % (Auto) Neut % (Auto) Lymph % (Auto) [place] % (Auto) Eos % (Auto) Baso % (Auto) Neut # (Auto) Lymph # (Auto) [place] # (Auto) Eos # (Auto) Baso # (Auto) Immature Gran # (Auto) Absolute Nucleated RBC Nucleated RBC % (auto) Neutrophils % (Manual) Band Neutrophils % Lymphocytes % (Manual) Prolymphocyte % Reactive Lymphs % (Man) Monocytes % (Manual) Eosinophils % (Manual) Basophils % (Manual) Metamyelocytes % (Man) Myelocytes % (Man) Promyelocytes % (Man) Blast Cells % (Manual) Plasma Cell % (Manual) Other Cells % Nucleated RBC % Neutrophils # (Manual) Band Neutrophils # Total Absolute Neuts Lymphocytes # (Manual) Prolymphocyte # Reactive Lymphs # Total Abs Lymphocytes Monocytes # (Manual) Eosinophils # (Manual) Basophils # (Manual) Metamyelocytes # (Man) Myelocytes # (Manual) Promyelocytes # (Man) Blast Cells # (Man) Plasma Cell # (Manual) Other Cells # Nucleated RBCs # (Man) Hypersegmented Neuts Hyposegmented Neuts Hypogranular Neuts Large Granular Lymphs # Lrg Granular Lymphs Hairy Cells Smudge Cells Toxic Granulation Toxic Vacuolation Dohle Bodies Cammie Rods Platelet Estimate Hypogranular Platelets Clumped Platelets Giant Platelets Platelet Satelliting RBC Morphology Polychromasia Hypochromasia Poikilocytosis Basophilic Stippling Anisocytosis Microcytosis Macrocytosis Spherocytes Pappenheimer Bodies Sickle Cells Target Cells Tear Drop Cells Ovalocytes Stomatocytes Jaime-Curran Bodies Echinocytes Acanthocytes (Spur) Rouleaux RBC Agglutinates Schistocytes Sezary Cell PT (9.0-12.0) Seconds INR (0.9-1.1) Sodium (136-145) mmol/L Potassium (3.5-5.1) mmol/L Chloride (98-107) mmol/L Carbon Dioxide (21-32) mmol/L Anion Gap (3-11) BUN (6-23) mg/dl Creatinine (0.6-1.4) mg/dl Est Cr Clr Drug Dosing Est GFR ( Amer) ml/min Est GFR (Non-Af Amer) ml/min BUN/Creatinine Ratio (10-20) Glucose (70-99(Fasting)) mg/dl Calcium (8.5-10.1) mg/dl Magnesium 2.2 (1.7-2.4) mg/dl Total Bilirubin (0.2-1.0) mg/dl AST (13-39) U/L ALT (7-52) U/L Alkaline Phosphatase (34-104) U/L Troponin I High Sens 7.9 D (0-20) pg/ml Total Protein (6.0-8.3) gm/dl Albumin (3.4-5.0) gm/dl Globulin (2.5-4.0) gm/dl Albumin/Globulin Ratio (0.9-2) Lipase (11-82) U/L Urine Color Yellow Urine Appearance Clear (Clear) Urine pH 7.0 (4.5-7.5) Ur Specific [place] > 1.045 H (1.000-1.030) Urine Protein Negative (Negative) Urine Glucose (UA) Negative (Negative) Urine Ketones Trace H (Negative) Urine Blood Negative (Negative) Urine Nitrite Negative (Negative) Urine Bilirubin Negative (Negative) Urine Urobilinogen Negative (Negative) Ur Leukocyte Esterase Negative (Negative) SARS-CoV-2, RNA, NAAT (NEGATIVE) Blood Parasites ID Administered Medications Discontinued Medications Hydrocodone Bitart/Acetaminophen (Hydrocodone/Acetamophen 5/325mg Tab) 1 tab PO NOW STA Stop: 01/04/22 21:10 Last Admin: 01/04/22 21:15 Dose: 1 tab Documented By: ANIL Famotidine (Pepcid 20mg Iv Push) 20 mg in 5 mls @ 2.5 mls/min IV NOW STA Stop: 01/04/22 18:18 Last Admin: 01/04/22 18:39 Dose: 2.5 mls/min Documented By: ANIL Sodium Chloride (Nss 1000ml) 1,000 mls @ 999 mls/hr IV .Q1H1M ONE Stop: 01/04/22 19:18 Last Infusion: 01/04/22 20:03 Dose: 0 mls/hr Documented By: Admin: 01/04/22 18:38 Dose: 999 mls/hr Documented By: ANIL Ioversol (Ioversol 350 Mg 100ml Prefilled Syringe) 90 ml IV ONCE ONE Stop: 01/04/22 18:53 Last Admin: 01/04/22 18:55 Dose: 90 ml Documented By: WILLIAM Imaging Data Radiologist's Impression: Abdomen/Pelvis CT 01/04/22 18:16 CT abd pelvis IV con only CLINICAL HISTORY: upper abd pain TECHNIQUE: Helical axial images of the abdomen and pelvis were obtained and displayed. Automated dose lowering techniques and/or adjustment according to patient size were utilized for this exam. This exam was performed with intravenous contrast. CT DOSE: 1009.44 mGycm COMPARISON: Comparison is made to CT abdomen pelvis 03/16/2019 FINDINGS: Lower chest: Bibasilar atelectasis versus scarring is seen. Atherosclerotic calcifications are seen. Liver: Hepatic steatosis is noted. Focal fatty sparing is seen in the gallbladder fossa. Gallbladder and biliary tree: No calcified gallstones. Normal caliber wall. No intra- or extrahepatic biliary ductal dilation. There is prominence of the gallbladder wall without wall thickening. This may possibly represent wall jaren cifications, although they were not well seen on prior exam. Pancreas: Mild fatty atrophy is noted. Spleen: Unremarkable. Adrenals: Unremarkable. Kidneys and ureters: Perinephric stranding is noted bilaterally. There is a 15 mm left renal cyst. Bladder: Minimal thickening of the lateral wall is seen. Reproductive organs: Prostatomegaly is seen. Bowel: Patient is status post appendectomy. There is a small duodenal d iverticulum. Lymph nodes Retroperitoneal: Calcified jennifer hepatis lymph nodes are unchanged from prior exam. Pelvic: Unremarkable. Mesenteric: Unremarkable. Peritoneum: Normal. Vessels: Atherosclerotic calcifications are seen. Abdominal wall: Unremarkable. Bones: Degenerative changes in the visualized spine. IMPRESSION: Hepatic steatosis. Otherwise no acute abnormalities are seen. ACT 112: Negative or not required by law. Electronically signed by: Tomer Perez M.D. 01/04/2022 7:22 PM Discharge Plan Visit Data Chief Complaint: Rib Injury/Pain Stated Complaint: LEFT RIGHT QUADRANT, NAUSEA, FATIGUE ED Provider: Eder Puga Discharge Problem: Abdominal pain, epigastric, Weakness, Elevated troponin Patient Disposition: Being Evaluated by Hospitalist Forms [facility] Prescriptions Prescriptions: No Action potassium chloride 10 mEq Capsule, Extended Release 10 meq PO QAM trazodone 50 mg Tablet 50 mg PO HS nitroglycerin 0.4 mg Tablet, Sublingual 0.4 mg sublingual UD PRN (Reason: CHEST PAIN) insulin glargine [Basaglar KwikPen U-100 Insulin] 100 unit/mL (3 mL) Insulin Pen 1 unit SUBCUT UD Rx Instructions: 20 UNITS IN AM, 10 UNITS IN PM multivitamin Tablet 1 tab PO QAM ipratropium-albuterol 0.5 mg-3 mg(2.5 mg base)/3 mL Solution For Nebulization 3 ml INHALATION Q6 PRN (Reason: Shortness Of Breath Or Wheezing) atenolol 25 mg Tablet 25 mg PO UD Label Comments: WILL REPEAT IN EVENING IF HAVING PALPITATIONS Rx Instructions: Take 25mg QAM and 12.5 as needed qPM for palpitations aspirin [Aspir-81] 81 mg Tablet,Delayed Release (Dr/Ec) 81 mg PO QAM baclofen 10 mg Tablet 10 mg PO BID PRN (Reason: Muscle Spasm) pantoprazole 40 mg Tablet,Delayed Release (Dr/Ec) 40 mg PO BID warfarin 5 mg Tablet 10 mg PO QAM montelukast [Singulair] 10 mg Tablet 10 mg PO QAM furosemide [Lasix] 20 mg Tablet 20 mg PO QAM PRN (Reason: Edema) polyethylene glycol 3350 [Miralax] 17 gram/dose Powder 17 g PO DAILY PRN (Reason: Constipation) albuterol sulfate [Ventolin HFA] 90 mcg/actuation Hfa Aerosol Inhaler 2 puff INHALATION QID PRN (Reason: Shortness Of Breath Or Wheezing) coQ10 (ubiquinol) 200 mg Capsule 200 mg PO QAM calcium carb-mag ox-zinc sulf 333-133-5 mg Tablet 1 tab PO QAM insulin aspart U-100 [Novolog U-100 Insulin aspart] 100 unit/mL Solution 1 sliding scale dose SUBCUT USEASDIRECTD prednisone 10 mg tablet 5 mg PO QAM duloxetine 30 mg capsule,delayed release(DR/EC) 30 mg PO QAM Trelegy Ellipta 100-62.5-25 mcg blister with device 1 inh INHALATION DAILY hydrocodone-acetaminophen 10-325 mg Tablet 1 tab PO Q6H PRN (Reason: Severe Pain (Scale Score 7-10)) lorazepam [Ativan] 0.5 mg Tablet 0.5 mg PO BID hydroxychloroquine [Plaquenil] 200 mg Tablet 400 mg PO QPM fluticasone propionate 50 mcg/actuation [place],Suspension 1 spray INTRANASAL DAILY pregabalin [Lyrica] 75 mg Capsule 75 mg PO BID Claritin 10 mg Tablet,Chewable 10 mg PO QAM Referrals Referrals: Brigitte Joseph MD [Primary Care Provider] -
[2022-01-04 18:42] LABS: Basophils # (auto) 0.05 K/uL (0-0.2); Basophils % (auto) 0.6 %; Eosinophils # (auto) 0.11 K/uL (0-0.50); Eosinophils % (auto) 1.2 %; Hematocrit (blood only) 42.4 % (40.1-51.0); Hemoglobin 14.9 g/dl (14.0-18.0); Immature Granulocytes # (auto) 0.03 K/uL (0.00-0.02); Immature Granulocytes % (auto) 0.3 %; Lymphocytes # (auto) 1.91 K/uL (1.2-3.4); Lymphocytes % (auto) 21.5 %; Mean Corpuscular Hemoglobin 32.6 pg (25.0-34.0); Mean Corpuscular Hgb Conc 35.1 g/dL (32.0-36.0); Mean Corpuscular Volume 92.8 fL (80.0-100.0); Mean Platelet Volume 10.4 fL (9.4-12.4); Monocytes # (auto) 0.75 K/uL (0.24-0.82); Monocytes % (auto) 8.4 %; Neutrophils # (auto) 6.04 K/uL (1.4-6.5); Platelet Count 196 K/uL (130-400); RDW Coefficient of Variation 12.4 % (11.5-14.5); RDW Standard Deviation 42.8 fL (36.4-46.3); Red Blood Count 4.57 M/uL (4.63-6.08); White Blood Count 8.89 K/ul (4.8-10.8)
[2022-01-04] MEDS ORDERED: IOVERSOL 350 MG 100mL Prefilled Syringe IV ONE (18:52)
--- NOTE | 2022-01-04 19:24 | CT Scan Report ---
CT abd pelvis IV con only CLINICAL HISTORY: upper abd pain TECHNIQUE: Helical axial images of the abdomen and pelvis were obtained and displayed. Automated dose lowering techniques and/or adjustment according to patient size were utilized for this exam. This e xam was performed with intravenous contrast. CT DOSE: 1009.44 mGycm COMPARISON: Comparison is made to CT abdomen pelvis 03/16/2019 FINDINGS: Lower chest: Bibasilar atelectasis versus scarring is seen. Atherosclerotic calcifications are seen. Liver: Hepatic steatosis is noted. Focal fatty sparing is seen in the gallbladder fossa. Gallbladder and biliary tree: No calcified gallstones. Normal caliber wall. No intra- or extrahepatic biliary ductal dilation. There is prominence of the gallbladder wall without wall thickening. This m ay possibly represent wall calcifications, although they were not well seen on prior exam. Pancreas: Mild fatty atrophy is noted. Spleen: Unremarkable. Adrenals: Unremarkable. Kidneys and ureters: Perinephric stranding is noted bilaterally. There is a 15 mm left renal cyst. Bladder: Minimal thickening of the lateral wall is seen. Reproductive organs: Prostatomegaly is seen. Bowel: Patient is status post appendectomy. There is a small duodenal diverticulum. Lymph nodes Retroperitoneal: Calcified jennifer hepatis lymph nodes are unchanged from prior exam. Pelvic: Unremarkable. Mesenteric: Unremarkable. Peritoneum: Normal. Vessels: Atherosclerotic calcifications are seen. Abdominal wall: Unremarkable. Bones: Degenerative changes in the visualized spine. IMPRESSION: Hepatic steatosis. Otherwise no acute abnormalities are seen. ACT 112: Negative or not required by law. Electronically signed by: Tomer Perez M.D. 01/04/2022 7:22 PM
--- NOTE | 2022-01-04 21:07 | History & Physical Report ---
Date of Service January 04, 2022 Assessment & Plan (1) Abdominal pain: (2) H. pylori infection: (3) PTSD (post-traumatic stress disorder): (4) HTN (hypertension): (5) Anxiety and depression: (6) Peripheral neuropathy: (7) Fibromyalgia: (8) Diabetes mellitus, type 2: (9) Asthma: (10) Narcotic dependence: (11) Tobacco use disorder: Plan This is a 66yo M with a PMH of H. pylori, Type 2 diabetes, tobacco use disorder, narcotic dependence, dyslipidemia, COPD, CAD, hypertension, chronic atrial fibrillation on coumadin, cardiac pacemaker, reactive arthritis, depression, drug-induced constipation and other medical problems as below who presents with left upper abdominal pain x [address] Parikh's addendum for assessment and plan details. History of Present Illness Chief Complaint: L abd pain Primary Care Provider: Brigitte Joseph MD This is a 66yo M with a PMH of H. pylori,Type 2 diabetes, tobacco use disorder, narcotic dependence, dyslipidemia, COPD, CAD, hypertension, chronic atrial fibrillation on coumadin, cardiac pacemaker, reactive arthritis, depression, drug-induced constipation and other medical problems as below who presents with left upper abdominal pain x 1 week. Pain has reportedly expanded from left to right side of upper abdomen that is made worse after eating. Describes pain as constant and sharp. Intermittent nausea and decreased appetite 2/2 abdominal distention. Follows with GI for treatment of H. pylori at the beginning of 2021. Then was evaluated by ID who recommended repeat EGD in July 2021, which showed H pylori on biopsy and severe gastritis. Per ID, the risk of using additional antibiotics such as triple regimen outweighs the benefit. He is scheduled for repeat EGD at [facility] on 02/14/22 to obtain repeat biopsies as well as cultures this time. Denies fever, chills, lightheadedness, CP, SOB, dysuria, diarrhea or constipation. Also with recent bronchitis having just completed course of Augmentin and prednisone. Discontinued morphine 1 month ago but still taking hydrocodone-acetaminophen 10mg Q6H PRN. Allergies Allergy/AdvReac Type Severity Reaction Status Date / Time capsaicin Allergy Intermediate RASH WITH Verified 08/09/21 10:26 JOINT SWELLING-CAN TAKE ASPIRIN diclofenac Allergy Intermediate RASH WITH Verified 08/09/21 10:26 JOINT SWELLING-CAN TAKE ASPIRIN Diclopak AdvReac Unknown RASH WITH Verified 03/18/16 16:31 JOINT SWELLING-CAN TAKE ASPIRIN Home Medications Medication Instructions Recorded Confirmed Type albuterol sulfate 90 mcg/actuation 2 puff inhalation QID PRN 01/16/19 01/04/22 History aerosol inhaler (Ventolin HFA) Shortness Of Breath Or Wheezing aspirin 81 mg tablet,delayed 81 mg PO QAM 01/16/19 01/04/22 History release (Aspir-) atenolol 25 mg tablet 25 mg PO UD 01/16/19 01/04/22 History baclofen 10 mg tablet 10 mg PO BID PRN Muscle Spasm 01/16/19 01/04/22 History calcium carbonate 333 mg-magnesium 1 tab PO QAM 01/16/19 01/04/22 History oxide 133 mg-zinc sulf 5 mg tablet coQ10 (ubiquinol) 200 mg capsule 200 mg PO QAM 01/16/19 01/04/22 History furosemide 20 mg tablet (Lasix) 20 mg PO QAM PRN Edema 01/16/19 01/04/22 History ipratropium 0.5 mg-albuterol 3 mg 3 ml inhalation Q6 PRN Shortness 01/16/19 01/04/22 History (2.5 mg base)/3 mL nebulization Of Breath Or Wheezing soln montelukast 10 mg tablet 10 mg PO QAM 01/16/19 01/04/22 History (Singulair) multivitamin 1 tab PO QAM 01/16/19 01/04/22 History pantoprazole 40 mg tablet,delayed 40 mg PO BID 01/16/19 01/04/22 History release polyethylene glycol 3350 17 17 g PO DAILY PRN Constipation 01/16/19 01/04/22 History gram/dose oral powder (Miralax) warfarin 5 mg tablet 10 mg PO QAM 01/16/19 01/04/22 History insulin glargine 100 unit/mL (3 1 unit subcut UD 01/22/19 01/04/22 History mL) subcutaneous pen (Basaglar KwikPen U-100 Insulin) nitroglycerin 0.4 mg sublingual 0.4 mg sublingual UD PRN CHEST PAIN 01/22/19 01/04/22 History tablet potassium chloride 10 mEq 10 meq PO QAM 01/22/19 01/04/22 History capsule,extended release trazodone 50 mg tablet 50 mg PO HS 01/22/19 01/04/22 History duloxetine 30 mg capsule,delayed 30 mg PO QAM 03/16/19 01/04/22 History release prednisone 10 mg tablet 5 mg PO QAM 03/16/19 01/04/22 History insulin aspart U-100 100 unit/mL 1 sliding scale dose subcut 03/22/19 01/04/22 History subcutaneous solution (Novolog USEASDIRECTD U-100 Insulin aspart) fluticasone propionate 50 1 spray intranasal DAILY 08/09/21 01/04/22 History mcg/actuation nasal spray,suspension hydrocodone 10 mg-acetaminophen 1 tab PO Q6H PRN Severe Pain 08/09/21 01/04/22 History 325 mg tablet (Scale Score 7-10) hydroxychloroquine 200 mg tablet 400 mg PO QPM 08/09/21 01/04/22 History (Plaquenil) loratadine 10 mg chewable tablet 10 mg PO QAM 08/09/21 01/04/22 History (Claritin) lorazepam 0.5 mg tablet (Ativan) 0.5 mg PO BID 08/09/21 01/04/22 History pregabalin 75 mg capsule (Lyrica) 75 mg PO BID 08/09/21 01/04/22 History fluticasone fur. 100 mcg-umeclid 1 inh inhalation DAILY 01/04/22 01/04/22 History 62.5 mcg-vilant 25 mcg inhalat.powder (Trelegy Ellipta) Past Med/Surg History Medical History (Updated 01/05/22 @ 00:31 by Eder Puga M.D.) Anxiety and depression Asthma LAST USED RESCUE INHALER>YESTERDAY Atrial fibrillation REASON FOR COUMADIN BPH (benign prostatic hyperplasia) COPD exacerbation Diabetes mellitus, type 2 Fibromyalgia GERD (gastroesophageal reflux disease) History of cardioversion MAY 2018 History of COVID-19 03/2021>BODY ACHES/FEVER *CONT. SOB WITH EXERTION ? RELATED TO COVID History of Helicobacter pylori infection History of pacemaker OCTOBER 2018 - [facility] HTN (hypertension) Hx of myocardial infarction X6; 5 FROM [id number] AND 1 IN 2004 Hyperlipidemia Insomnia Migraine Osteoarthritis Paralysis of diaphragm (Unknown) LEFT DIAPHRAGM (UNKNOWN REASON) Peripheral neuropathy Post traumatic stress disorder Restless leg syndrome Spinal stenosis Ulcerative colitis Surgical History Family history of reaction to anesthesia DAUGHTER-SLOW TO WAKE UP History of Achilles tendon repair LEFT History of appendectomy History of colonoscopy History of ERCP GALL STONES History of esophagogastroduodenoscopy (EGD) History of heart artery stent 8 TOTAL STENTS (LAST ONE PLACED AUGUST 2018 AT [facility] IN [place]) History of permanent cardiac pacemaker placement OCTOBER 2018>MONITORED BY [facility]/DR. HALL History of tooth extraction Hx of cardiac catheterization TOTAL 8 STENTS - LAST CATH AUGUST 2018 [facility] Hx of metal removed from eye Hx of transurethral resection of prostate Family History Grandfather (Paternal) Family history of diabetes mellitus Grandfather (Maternal) Family hx of colon cancer Social History (Updated 01/04/22 @ 21:59 by Courtney Palmer PA-C) Smoking Status: Current every day smoker Cigarettes Per Day: 10-20; Second Hand Exposure: Yes (IN THE PAST); Do You Dip or Chew Tobacco: No; Tobacco Cessation Education Requested by Patient: No Hx Alcohol Use: No Hx Substance Use: No Preferred Language: Turkmen Communication Ability: Effective 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 Physical Exam Physical Exam: General Appearance: WD/WN, vitals as above, NAD, sitting up in bed, conversing easily Head: normocephalic, atraumatic Eyes: normal inspection, PERRL, conjunctivae normal, anicteric sclerae ENT: external ear and nose normal, oropharynx normal Neck: normal visual inspection, trachea midline, no thyromegaly Respiratory: normal respiratory effort, lungs clear to auscultation, no wheeze, rales, rhonchi. No accessory muscle use Cardiovascular: regular rate, rhythm, no murmur, normal peripheral pulses, no BLE edema. Vessels: no JVD Chest: normal inspection of chest Abdomen/GI: normal bowel sounds, distended but soft, TTP in bandlike distribution across upper abdomen, L>R. No guarding, no hepatosplenomegaly Extremities/Musculoskeletal: no cyanosis or clubbing, extremities motor strength 5/5 Neurologic: PERRL, EOMI, accommodation nl, no face palsy, no dysarthria, CN's II-XI intact bilaterally and moves all extremities Psychiatric: A+Ox3, + anxious Skin: no rashes, normal color, warm/dry Results & Data Results & Data ([facility]) Vital Signs (Past 12 Hours) Vital Signs Temp Pulse Pulse Resp BP BP Pulse Ox 01/04/22 20:00 70 18 153/90 H 97 01/04/22 18:59 97 H 20 120/81 97 01/04/22 18:13 01/04/22 17:59 86 20 120/81 97 01/04/22 16:21 36.9 C 77 16 146/89 H 98 O2 Del Method 01/04/22 20:00 01/04/22 18:59 01/04/22 18:13 Room Air 01/04/22 17:59 Room Air 01/04/22 16:21 Room Air Laboratory Results Short CBC 01/04/22 01/04/22 Range/Units 16:50 18:31 WBC Cancelled 8.89 Hgb Cancelled 14.9 Hct Cancelled 42.4 Plt Count Cancelled 196 BMP 01/04/22 16:50 Sodium 138 Potassium 5.0 Chloride 102 Carbon Dioxide 29 BUN 26 H Creatinine 1.05 Glucose 114 H Calcium 10.0 Liver Function 01/04/22 Range/Units 16:50 Total Bilirubin 0.8 (0.2-1.0) mg/dl AST 29 (13-39) U/L ALT 48 (7-52) U/L Alkaline Phosphatase 48 (34-104) U/L Albumin 5.0 (3.4-5.0) gm/dl Diagnostic Findings Abdomen/Pelvis CT 01/04/22 18:16 CT abd pelvis IV con only CLINICAL HISTORY: upper abd pain TECHNIQUE: Helical axial images of the abdomen and pelvis were obtained and displayed. Automated dose lowering techniques and/or adjustment according to patient size were utilized for this exam. This exam was performed with intravenous contrast. CT DOSE: 1009.44 mGycm COMPARISON: Comparison is made to CT abdomen pelvis 03/16/2019 FINDINGS: Lower chest: Bibasilar atelectasis versus scarring is seen. Atherosclerotic calcifications are seen. Liver: Hepatic steatosis is noted. Focal fatty sparing is seen in the gallbladder fossa. Gallbladder and biliary tree: No calcified gallstones. Normal caliber wall. No intra- or extrahepatic biliary ductal dilation. There is prominence of the gallbladder wall without wall thickening. This may possibly represent wall calcifications, although they were not well seen on prior exam. Pancreas: Mild fatty atrophy is noted. Spleen: Unremarkable. Adrenals: Unremarkable. Kidneys and ureters: Perinephric stranding is noted bilaterally. There is a 15 mm left renal cyst. Bladder: Minimal thickening of the lateral wall is seen. Reproductive organs: Prostatomegaly is seen. Bowel: Patient is status post appendectomy. There is a small duodenal diverticulum. Lymph nodes Retroperitoneal: Calcified jennifer hepatis lymph nodes are unchanged from prior exam. Pelvic: Unremarkable. Mesenteric: Unremarkable. Peritoneum: Normal. Vessels: Atherosclerotic calcifications are seen. Abdominal wall: Unremarkable. Bones: Degenerative changes in the visualized spine. IMPRESSION: Hepatic steatosis. Otherwise no acute abnormalities are seen. ACT 112: Negative or not required by law. Electronically signed by: Tomer Perez M.D. 01/04/2022 7:22 PM Supervising Physician Co-Signing Physician Notes IM ATTENDING : Patient seen and examined. History obtained from patient and records. Preceding documentation by Ms. Courtney Palmer PA-C reviewed. In addition patient complains of left-sided abdominal pain radiating to the chest and back. Patient also with headache symptoms. CT head initial read: No intracranial hemorrhage. No significant mass effect or midline shift. No evidence for cortical infarct or significant alteration fromthe examination 03/16/2019. 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 until patient seen by cardiology in a.m. in anticipation of ischemic work-up Hold Coumadin until patient seen by Cardiology. Basal bolus insulin adjusted for n.p.o. status, ISS BG goal 1 10-1 40, update hemoglobin A1c Nicotine patch as needed DVT prophylaxis. IV heparin if INR less than 2 while Coumadin on hold Full code Text document was generated using [employer] voice recognition software. It may contain grammatical or spelling errors. Kindly contact undersigned for clarification of any documentation item in question.
[2022-01-04] MEDS ORDERED: HYDROCODONE/ACETAMOPHEN 5/325MG TAB PO STA (21:09)
[2022-01-04 22:07] LABS: Magnesium 2.2 mg/dl (1.7-2.4)
[2022-01-04 22:15] LABS: Troponin I High Sensitivity 7.9 pg/ml (0-20)
[2022-01-04 22:21] LABS: Appearance Urine Clear (Clear); Bilirubin Urine Negative (Negative); Blood Urine Negative (Negative); Color Urine Yellow; Glucose Urine UA Negative (Negative); Ketones Urine Trace (Negative); Leukocyte Esterase Urine Negative (Negative); Nitrite Urine Negative (Negative); Protein Urine Negative (Negative); Specific Gravity Urine > 1.045 (1.000-1.030); Urobilinogen Urine Negative (Negative)
[2022-01-05] MEDS ORDERED: GLUCOSE 40% GEL 15 GM TUBE PO PRN (01:37)
[2022-01-05] MEDS ORDERED: ACETAMINOPHEN 325 MG TAB PO PRN (01:37)
[2022-01-05] MEDS ORDERED: NITROGLYCERIN SL 0.4 MG/TAB TAB SL PRN (01:37)
[2022-01-05] MEDS ORDERED: MoRPHine SULFATE 4 MG/ML 1 ML CARP\\VIAL IV PRN (01:37)
[2022-01-05] MEDS ORDERED: BACLOFEN 10 MG TAB PO PRN (01:37)
[2022-01-05] MEDS ORDERED: CARBOHYDRATES FOR HYPOGLYCEMIA PO PRN (01:37)
[2022-01-05] MEDS ORDERED: DEXTROSE 50% 50 ML SYRINGE IV PRN (01:37)
[2022-01-05] MEDS ORDERED: POLYETHYLENE (MIRALAX) 17 GM PACK PO PRN (01:37)
[2022-01-05] MEDS ORDERED: LORazepam 0.5 MG TAB PO PRN (01:37)
[2022-01-05] MEDS ORDERED: PROMETHAZINE HCL 12.5 MG in SODIUM CHLORIDE 0.9% 50 ML IV PRN (01:37)
[2022-01-05] MEDS ORDERED: GLUCOSE 10 TAB/TUBE PO PRN (01:37)
[2022-01-05] MEDS ORDERED: GLUCAGON FOR INJ 1 MG VIAL SQ PRN (01:37)
[2022-01-05] MEDS ORDERED: ATENOLOL 25 MG TABLET PO PRN (02:10)
[2022-01-05] MEDS ORDERED: INSULIN ASPART PER UNIT ONE (02:30)
[2022-01-05] MEDS: PREGABALIN 75 MG CAP PO SCH ×3 (02:32→21:21)
[2022-01-05] MEDS: traZODone HCL 50 MG TAB PO SCH ×2 (02:32→21:21)
[2022-01-05] MEDS: HYDROcodone/ACETAMINOPHEN 10/325 TAB PO PRN ×3 (02:32→18:18)
[2022-01-05] MEDS: INSULIN ASPART PER UNIT SC SCH ×5 (02:34→21:25)
[2022-01-05] MEDS: LORazepam 0.5 MG TAB PO SCH ×3 (02:35→21:20)
[2022-01-05] MEDS: PANTOprazole 40 MG TAB PO SCH ×3 (02:42→21:20)
[2022-01-05] MEDS ORDERED: ALBUTEROL HFA 8 GM INHALER INH PRN (02:51)
[2022-01-05] MEDS: LANTUS PER UNIT CHARGE SQ SCH ×2 (05:58→21:25)
[2022-01-05 06:21] LABS: Basophils # (auto) 0.06 K/uL (0-0.2); Basophils % (auto) 0.8 %; Eosinophils # (auto) 0.14 K/uL (0-0.50); Eosinophils % (auto) 1.9 %; Hematocrit (blood only) 38.7 % (40.1-51.0); Immature Granulocytes # (auto) 0.03 K/uL (0.00-0.02); Immature Granulocytes % (auto) 0.4 %; Lymphocytes # (auto) 2.53 K/uL (1.2-3.4); Lymphocytes % (auto) 34.4 %; Mean Corpuscular Hemoglobin 33.6 pg (25.0-34.0); Mean Corpuscular Hgb Conc 36.2 g/dL (32.0-36.0); Mean Corpuscular Volume 92.8 fL (80.0-100.0); Mean Platelet Volume 10.3 fL (9.4-12.4); Monocytes # (auto) 0.72 K/uL (0.24-0.82); Monocytes % (auto) 9.8 %; Neutrophils # (auto) 3.88 K/uL (1.4-6.5); Neutrophils % (auto) 52.7 %; Platelet Count 151 K/uL (130-400); RDW Coefficient of Variation 12.3 % (11.5-14.5); RDW Standard Deviation 42.1 fL (36.4-46.3); Red Blood Count 4.17 M/uL (4.63-6.08); White Blood Count 7.36 K/ul (4.8-10.8)
[2022-01-05 06:47] LABS: INR 2.5 (0.9-1.1); Prothrombin Time 25.2 Seconds (9.0-12.0); Troponin I High Sensitivity 8.6 pg/ml (0-20)
[2022-01-05 06:52] LABS: Calcium 8.8 mg/dl (8.5-10.1); Creatinine Clr Calc Pharmacy 100.3 ml/min; Est GFR (African American) 104.5 ml/min; Est GFR (Non-African American) 90.1 ml/min
[2022-01-05 07:39] LABS: Estimated Average Glucose 134 mg/dl; Hemoglobin A1C 6.3 % (4.5-5.6)
[2022-01-05] MEDS ORDERED: INFLUENZA VACCINE HIGH DOSE PF 65+ 0.7 ML SYR IM ONE (08:00)
--- NOTE | 2022-01-05 08:42 | CT Scan Report ---
CT OF THE HEAD WITHOUT CONTRAST CLINICAL HISTORY: Headache. COMPARISON STUDY: Head CT March 16, 2019. CT DOSE: 537.48 mGy.cm TECHNIQUE: Helical axial images of the head were obtained without IV contrast. Automated exposure con trol was utilized for the study. A dose lowering technique was utilized adhering to the principles o f ALARA. FINDINGS: No acute intracranial hemorrhage, midline shift or mass effect is present. The ventricular system is unremarkable. The basal cisterns are patent. No extra-axial collections are present. There are no findings to suggest acute dural sinus thrombosis or acute territorial infarct. No significant calvarial abnormalities are present. There are postoperative findings within the sinuses. IMPRESSION: No acute intracranial findings. ACT 112: Negative or not required by law. Electronically signed by: Uday Shields M.D. 01/05/2022 8:41 AM
--- NOTE | 2022-01-05 08:48 | XRay Report ---
XR chest 1V portable CLINICAL HISTORY: Atypical chest pain. COMPARISON STUDY: Chest radiograph January 16, 2019. Chest CT March 16, 2019. FINDINGS: Dual lead left subclavian pacer is in place. There is no pneumothorax or pleural effusion. Moderate elevation of the left hemidiaphragm is again noted. Left basilar opacity reflects atelectasi s. There is no consolidation to suggest pneumonia. No evidence for pulmonary edema. IMPRESSION: 1. No acute cardiopulmonary findings. 2. Stable cardiomegaly. 3. Elevation of the left hemidiaphragm with left basilar atelectasis. ACT 112: Negative or not required by law. Electronically signed by: Uday Shields M.D. 01/05/2022 8:47 AM
[2022-01-05] MEDS ORDERED: LANTUS PER UNIT CHARGE SQ SCH (09:00)
[2022-01-05] MEDS: ASPIRIN 81 MG ECTAB PO SCH (09:17)
[2022-01-05] MEDS: FLUTICASONE FUROATE 100MCG 14 PUFFS/INHALER INH SCH (09:18)
[2022-01-05] MEDS: ATENOLOL 25 MG TABLET PO SCH (09:18)
[2022-01-05] MEDS: DULoxetine HCL 30 MG CAP PO SCH (09:18)
[2022-01-05] MEDS: LORATADINE 10 MG TAB PO SCH (09:19)
[2022-01-05] MEDS: MULTIVITAMIN TAB PO SCH (09:19)
[2022-01-05] MEDS: MONTELUKAST SODIUM 10 MG TABLET PO SCH (09:19)
[2022-01-05] MEDS: predniSONE 5 MG TAB PO SCH (09:19)
[2022-01-05] MEDS: FLUTICASONE PROPIONATE NA SPR 16 GM BTL SCH (09:19)
[2022-01-05] MEDS: UMECLIDINIUM/VILANTEROL 62.5/25MCG 7 PUFFS/INHALER INH SCH (09:20)
--- NOTE | 2022-01-05 09:20 | Cardiology Consultation ---
Date of Consultation January 05, 2022 Assessment & Plan (1) Abdominal pain, epigastric: (2) Narcotic dependence: (3) Peripheral neuropathy: (4) Fibromyalgia: (5) Diabetes mellitus, type 2: (6) Anxiety and depression: (7) H. pylori infection: (8) Stented coronary artery: Plan As mentioned previously, I think the first high-sensitivity troponin is an outlier. I believe the patient's pain and symptoms are noncardiac and most likely GI. He has been followed by Dr. Al as an outpatient and I think it is best that we have a consultation with the GI service. I do not believe any additional cardiac testing is indicated at this time. Any procedures that the GI service feel they need to accomplish should proceed with an acceptable low risk of cardiovascular event. History of Present Illness Attending Physician: Chandler Henriquez MD History of Present Illness This is a 66-year-old male patient who has never seen [facility] cardiology but has been followed at [facility] by [facility] cardiology. He has a history of tachybradycardia syndrome and PAF resulting in a permanent pacemaker. He also relates a history of coronary artery disease dating back to 1996 followed by multiple stenting procedures performed at [facility] and one at [facility]. Its been several years since his last event. He has a history of chronic stable angina and takes approximately 10 sublingual nitroglycerin per month for relief. His last estimated left ventricular ejection fraction by echocardiography was 55%. He has been under the care of the GI service for chronic H. pylori with associated abdominal and epigastric discomfort. He also has a history of pancreatitis which may have been related to gallstones. For approximately a week he has had epigastric and upper abdominal discomfort which is increased after meals and at times with movement. His discomfort has been more or less continuous. No vomiting or diarrhea. No melena or hematochezia. After admission, the patient's EKGs showed no acute changes. His first high-sensitivity troponin is borderline elevated with the following 2 being completely normal. I think this first high-sensitivity troponin is an outlier. Allergies Allergy/AdvReac Type Severity Reaction Status Date / Time capsaicin Allergy Intermediate RASH WITH Verified 08/09/21 10:26 JOINT SWELLING-CAN TAKE ASPIRIN diclofenac Allergy Intermediate RASH WITH Verified 08/09/21 10:26 JOINT SWELLING-CAN TAKE ASPIRIN Diclopak AdvReac Unknown RASH WITH Verified 03/18/16 16:31 JOINT SWELLING-CAN TAKE ASPIRIN Home Medications Medication Instructions Recorded Confirmed Type albuterol sulfate 90 mcg/actuation 2 puff inhalation QID PRN 01/16/19 01/04/22 History aerosol inhaler (Ventolin HFA) Shortness Of Breath Or Wheezing aspirin 81 mg tablet,delayed 81 mg PO QAM 01/16/19 01/04/22 History release (Aspir-) atenolol 25 mg tablet 25 mg PO UD 01/16/19 01/04/22 History baclofen 10 mg tablet 10 mg PO BID PRN Muscle Spasm 01/16/19 01/04/22 History calcium carbonate 333 mg-magnesium 1 tab PO QAM 01/16/19 01/04/22 History oxide 133 mg-zinc sulf 5 mg tablet coQ10 (ubiquinol) 200 mg capsule 200 mg PO QAM 01/16/19 01/04/22 History furosemide 20 mg tablet (Lasix) 20 mg PO QAM PRN Edema 01/16/19 01/04/22 History ipratropium 0.5 mg-albuterol 3 mg 3 ml inhalation Q6 PRN Shortness 01/16/19 01/04/22 History (2.5 mg base)/3 mL nebulization Of Breath Or Wheezing soln montelukast 10 mg tablet 10 mg PO QAM 01/16/19 01/04/22 History (Singulair) multivitamin 1 tab PO QAM 01/16/19 01/04/22 History pantoprazole 40 mg tablet,delayed 40 mg PO BID 01/16/19 01/04/22 History release polyethylene glycol 3350 17 17 g PO DAILY PRN Constipation 01/16/19 01/04/22 History gram/dose oral powder (Miralax) warfarin 5 mg tablet 10 mg PO QAM 01/16/19 01/04/22 History insulin glargine 100 unit/mL (3 1 unit subcut UD 01/22/19 01/04/22 History mL) subcutaneous pen (Basaglar KwikPen U-100 Insulin) nitroglycerin 0.4 mg sublingual 0.4 mg sublingual UD PRN CHEST PAIN 01/22/19 01/04/22 History tablet potassium chloride 10 mEq 10 meq PO QAM 01/22/19 01/04/22 History capsule,extended release trazodone 50 mg tablet 50 mg PO HS 10/29/19 10/11/22 History duloxetine 30 mg capsule,delayed 30 mg PO QAM 03/16/19 01/04/22 History release prednisone 10 mg tablet 5 mg PO QAM 03/16/19 01/04/22 History insulin aspart U-100 100 unit/mL 1 sliding scale dose subcut 03/22/19 01/04/22 History subcutaneous solution (Novolog USEASDIRECTD U-100 Insulin aspart) fluticasone propionate 50 1 spray intranasal DAILY 08/09/21 01/04/22 History mcg/actuation nasal spray,suspension hydrocodone 10 mg-acetaminophen 1 tab PO Q6H PRN Severe Pain 08/09/21 01/04/22 History 325 mg tablet (Scale Score 7-10) hydroxychloroquine 200 mg tablet 400 mg PO QPM 08/09/21 01/04/22 History (Plaquenil) loratadine 10 mg chewable tablet 10 mg PO QAM 08/09/21 01/04/22 History (Claritin) lorazepam 0.5 mg tablet (Ativan) 0.5 mg PO BID 08/09/21 01/04/22 History pregabalin 75 mg capsule (Lyrica) 75 mg PO BID 08/09/21 01/04/22 History fluticasone fur. 100 mcg-umeclid 1 inh inhalation DAILY 01/04/22 01/04/22 History 62.5 mcg-vilant 25 mcg inhalat.powder (Trelegy Ellipta) Patient History Medical History Anxiety and depression Asthma LAST USED RESCUE INHALER>YESTERDAY Atrial fibrillation REASON FOR COUMADIN BPH (benign prostatic hyperplasia) COPD exacerbation Diabetes mellitus, type 2 Fibromyalgia GERD (gastroesophageal reflux disease) History of cardioversion MAY 2018 History of COVID-19 03/2021>BODY ACHES/FEVER *CONT. SOB WITH EXERTION ? RELATED TO COVID History of Helicobacter pylori infection History of pacemaker OCTOBER 2018 - [facility] HTN (hypertension) Hx of myocardial infarction X6; 5 FROM [id number] AND 1 IN 2004 Hyperlipidemia Insomnia Migraine Osteoarthritis Paralysis of diaphragm (Unknown) LEFT DIAPHRAGM (UNKNOWN REASON) Peripheral neuropathy Post traumatic stress disorder Restless leg syndrome Spinal stenosis Ulcerative colitis Surgical History Family history of reaction to anesthesia DAUGHTER-SLOW TO WAKE UP History of Achilles tendon repair LEFT History of appendectomy History of colonoscopy History of ERCP GALL STONES History of esophagogastroduodenoscopy (EGD) History of heart artery stent 8 TOTAL STENTS (LAST ONE PLACED AUGUST 2018 AT [facility] IN [place]) History of permanent cardiac pacemaker placement OCTOBER 2018>MONITORED BY [facility]/DR. HALL History of tooth extraction Hx of cardiac catheterization TOTAL 8 STENTS - LAST CATH AUGUST 2018 [facility] Hx of metal removed from eye Hx of transurethral resection of prostate Family History Grandfather (Paternal) Family history of diabetes mellitus Grandfather (Maternal) Family hx of colon cancer Social History Smoking Status: Current every day smoker Cigarettes Per Day: 10-20; Second Hand Exposure: Yes (IN THE PAST); Do You Dip or Chew Tobacco: No; Tobacco Cessation Education Requested by Patient: No Hx Alcohol Use: No Hx Substance Use: No Preferred Language: Norwegian Communication Ability: Effective Purchasing Internship Required: No Beliefs That Will Affect Care: None Current Living Situation: Family Current Living Situation Comment: WITH DAUGHTER /HAS AN APARTMENT IN HER HOUSE Other Information That Helps Us Care for You: No Feels Safe at Home: Yes Safety Concerns: Feels Safe At This Time Assistive Devices: Cane Review of Systems Review of Systems: Review of Systems: See HPI for pertinent positives. All oth er 10 point review of systems are negative. Physical Exam Physical Exam: General: no acute distress and stated age Head: normocephalic, no masses, lesions, tenderness or abnormalities Eyes: conjunctiva are pink and non-injected, sclera clear Neck: supple, no adenopathy, no bruits, normal jugular venous pulse, no hepatojugular reflux Chest: normal shape and normal respiratory effort Lungs: clear to auscultation and percussion Cardiac Exam: - regular rate & rhythm, no murmurs gallops or rubs - normal S1, normal S2 Pulses: 2(+) throughout Abdomen: Abdomen is tender to palpation in the epigastric area. Musculoskeletal: no gait disturbance, no joint inflammation, no deforming arthritis Extremities: no edema and no cyanosis Neuro: grossly normal exam Results & Data ([facility]) Vital Signs (Past 12 Hours) Vital Signs Temp Pulse Pulse Resp BP BP Pulse Ox 01/05/22 08:11 36.4 C L 62 18 95/59 L 97 01/05/22 03:27 67 18 97 01/05/22 03:20 36.8 C 59 L 16 113/64 98 01/05/22 01:00 01/05/22 01:00 36.9 C 69 18 150/88 H 97 01/05/22 00:02 67 17 135/91 97 01/04/22 23:00 65 19 97 01/04/22 22:00 72 20 142/80 H 99 O2 Del Method 01/05/22 08:11 Room Air 01/05/22 03:27 Room Air 01/05/22 03:20 Room Air 01/05/22 01:00 Room Air 01/05/22 01:00 Room Air 01/05/22 00:02 Room Air 01/04/22 23:00 Room Air 01/04/22 22:00 Laboratory Results Laboratory Results - last 24 hr 01/04/22 01/04/22 01/04/22 16:48 16:50 16:50 WBC Cancelled RBC Cancelled Hgb Cancelled Hct Cancelled MCV Cancelled MCH Cancelled MCHC Cancelled RDW Std Deviation Cancelled RDW Coeff of Pedro Cancelled Plt Count Cancelled MPV Cancelled Immature Gran % (Auto) Cancelled Neut % (Auto) Cancelled Lymph % (Auto) Cancelled Rush % (Auto) Cancelled Eos % (Auto) Cancelled Baso % (Auto) Cancelled Neut # (Auto) Cancelled Lymph # (Auto) Cancelled Rush # (Auto) Cancelled Eos # (Auto) Cancelled Baso # (Auto) Cancelled Immature Gran # (Auto) Cancelled Absolute Nucleated RBC Cancelled Nucleated RBC % (auto) Cancelled Neutrophils % (Manual) Cancelled Band Neutrophils % Cancelled Lymphocytes % (Manual) Cancelled Prolymphocyte % Cancelled Reactive Lymphs % (Man) Cancelled Monocytes % (Manual) Cancelled Eosinophils % (Manual) Cancelled Basophils % (Manual) Cancelled Metamyelocytes % (Man) Cancelled Myelocytes % (Man) Cancelled Promyelocytes % (Man) Cancelled Blast Cells % (Manual) Cancelled Plasma Cell % (Manual) Cancelled Other Cells % Cancelled Nucleated RBC % Cancelled Neutrophils # (Manual) Cancelled Band Neutrophils # Cancelled Total Absolute Neuts Cancelled Lymphocytes # (Manual) Cancelled Prolymphocyte # Cancelled Reactive Lymphs # Cancelled Total Abs Lymphocytes Cancelled Monocytes # (Manual) Cancelled Eosinophils # (Manual) Cancelled Basophils # (Manual) Cancelled Metamyelocytes # (Man) Cancelled Myelocytes # (Manual) Cancelled Promyelocytes # (Man) Cancelled Blast Cells # (Man) Cancelled Plasma Cell # (Manual) Cancelled Other Cells # Cancelled Nucleated RBCs # (Man) Cancelled Hypersegmented Neuts Cancelled Hyposegmented Neuts Cancelled Hypogranular Neuts Cancelled Large Granular Lymphs Cancelled # Lrg Granular Lymphs Cancelled Hairy Cells Cancelled Smudge Cells Cancelled Toxic Granulation Cancelled Toxic Vacuolation Cancelled Dohle Bodies Cancelled Cammie Rods Cancelled Platelet Estimate Cancelled Hypogranular Platelets Cancelled Clumped Platelets Cancelled Giant Platelets Cancelled Platelet Satelliting Cancelled RBC Morphology Cancelled Polychromasia Cancelled Hypochromasia Cancelled Poikilocytosis Cancelled Basophilic Stippling Cancelled Anisocytosis Cancelled Microcytosis Cancelled Macrocytosis Cancelled Spherocytes Cancelled Pappenheimer Bodies Cancelled Sickle Cells Cancelled Target Cells Cancelled Tear Drop Cells Cancelled Ovalocytes Cancelled Stomatocytes Cancelled Jaime-Oildale Bodies Cancelled Echinocytes Cancelled Acanthocytes (Spur) Cancelled Rouleaux Cancelled RBC Agglutinates Cancelled Schistocytes Cancelled Sezary Cell Cancelled PT 24.0 H INR 2.4 H Sodium 138 Potassium 5.0 Chloride 102 Carbon Dioxide 29 Anion Gap 7 BUN 26 H Creatinine 1.05 Est Cr Clr Drug Dosing Not Reportable Est GFR ( Amer) 85.9 Est GFR (Non-Af Amer) 74.1 BUN/Creatinine Ratio 24.8 H Glucose 114 H POC Glucose Estimat Average Glucose Hemoglobin A1c Calcium 10.0 Magnesium Total Bilirubin 0.8 AST 29 ALT 48 Alkaline Phosphatase 48 Troponin I High Sens Total Protein 7.5 Albumin 5.0 Globulin 2.5 Albumin/Globulin Ratio 2.0 Lipase 33 Urine Color Urine Appearance Urine pH Ur Specific Kenton Urine Protein Urine Glucose (UA) Urine Ketones Urine Blood Urine Nitrite Urine Bilirubin Urine Urobilinogen Ur Leukocyte Esterase SARS-CoV-2, RNA, NAAT Blood Parasites ID Cancelled 01/04/22 01/04/22 01/04/22 16:50 18:31 18:37 WBC 8.89 RBC 4.57 L Hgb 14.9 Hct 42.4 MCV 92.8 MCH 32.6 MCHC 35.1 RDW Std Deviation 42.8 RDW Coeff of Pedro 12.4 Plt Count 196 MPV 10.4 Immature Gran % (Auto) 0.3 Neut % (Auto) 68.0 Lymph % (Auto) 21.5 Rush % (Auto) 8.4 Eos % (Auto) 1.2 Baso % (Auto) 0.6 Neut # (Auto) 6.04 Lymph # (Auto) 1.91 Rush # (Auto) 0.75 Eos # (Auto) 0.11 Baso # (Auto) 0.05 Immature Gran # (Auto) 0.03 H Absolute Nucleated RBC Nucleated RBC % (auto) Neutrophils % (Manual) Band Neutrophils % Lymphocytes % (Manual) Prolymphocyte % Reactive Lymphs % (Man) Monocytes % (Manual) Eosinophils % (Manual) Basophils % (Manual) Metamyelocytes % (Man) Myelocytes % (Man) Promyelocytes % (Man) Blast Cells % (Manual) Plasma Cell % (Manual) Other Cells % Nucleated RBC % Neutrophils # (Manual) Band Neutrophils # Total Absolute Neuts Lymphocytes # (Manual) Prolymphocyte # Reactive Lymphs # Total Abs Lymphocytes Monocytes # (Manual) Eosinophils # (Manual) Basophils # (Manual) Metamyelocytes # (Man) Myelocytes # (Manual) Promyelocytes # (Man) Blast Cells # (Man) Plasma Cell # (Manual) Other Cells # Nucleated RBCs # (Man) Hypersegmented Neuts Hyposegmented Neuts Hypogranular Neuts Large Granular Lymphs # Lrg Granular Lymphs Hairy Cells Smudge Cells Toxic Granulation Toxic Vacuolation Dohle Bodies Cammie Rods Platelet Estimate Hypogranular Platelets Clumped Platelets Giant Platelets Platelet Satelliting RBC Morphology Polychromasia Hypochromasia Poikilocytosis Basophilic Stippling Anisocytosis Microcytosis Macrocytosis Spherocytes Pappenheimer Bodies Sickle Cells Target Cells Tear Drop Cells Ovalocytes Stomatocytes Jaime-Oildale Bodies Echinocytes Acanthocytes (Spur) Rouleaux RBC Agglutinates Schistocytes Sezary Cell PT INR Sodium Potassium Chloride Carbon Dioxide Anion Gap BUN Creatinine Est Cr Clr Drug Dosing Est GFR ( Amer) Est GFR (Non-Af Amer) BUN/Creatinine Ratio Glucose POC Glucose Estimat Average Glucose Hemoglobin A1c Calcium Magnesium Total Bilirubin AST ALT Alkaline Phosphatase Troponin I High Sens 75.3 H* Total Protein Albumin Globulin Albumin/Globulin Ratio Lipase Urine Color Urine Appearance Urine pH Ur Specific [place]on Urine Protein Urine Glucose (UA) Urine Ketones Urine Blood Urine Nitrite Urine Bilirubin Urine Urobilinogen Ur Leukocyte Esterase SARS-CoV-2, RNA, NAAT NEGATIVE Blood Parasites ID 01/04/22 01/04/22 01/05/22 21:26 21:38 00:52 WBC RBC Hgb Hct MCV MCH MCHC RDW Std Deviation RDW Coeff of Pedro Plt Count MPV Immature Gran % (Auto) Neut % (Auto) Lymph % (Auto) Rush % (Auto) Eos % (Auto) Baso % (Auto) Neut # (Auto) Lymph # (Auto) Rush # (Auto) Eos # (Auto) Baso # (Auto) Immature Gran # (Auto) Absolute Nucleated RBC Nucleated RBC % (auto) Neutrophils % (Manual) Band Neutrophils % Lymphocytes % (Manual) Prolymphocyte % Reactive Lymphs % (Man) Monocytes % (Manual) Eosinophils % (Manual) Basophils % (Manual) Metamyelocytes % (Man) Myelocytes % (Man) Promyelocytes % (Man) Blast Cells % (Manual) Plasma Cell % (Manual) Other Cells % Nucleated RBC % Neutrophils # (Manual) Band Neutrophils # Total Absolute Neuts Lymphocytes # (Manual) Prolymphocyte # Reactive Lymphs # Total Abs Lymphocytes Monocytes # (Manual) Eosinophils # (Manual) Basophils # (Manual) Metamyelocytes # (Man) Myelocytes # (Manual) Promyelocytes # (Man) Blast Cells # (Man) Plasma Cell # (Manual) Other Cells # Nucleated RBCs # (Man) Hypersegmented Neuts Hyposegmented Neuts Hypogranular Neuts Large Granular Lymphs # Lrg Granular Lymphs Hairy Cells Smudge Cells Toxic Granulation Toxic Vacuolation Dohle Bodies Cammie Rods Platelet Estimate Hypogranular Platelets Clumped Platelets Giant Platelets Platelet Satelliting RBC Morphology Polychromasia Hypochromasia Poikilocytosis Basophilic Stippling Anisocytosis Microcytosis Macrocytosis Spherocytes Pappenheimer Bodies Sickle Cells Target Cells Tear Drop Cells Ovalocytes Stomatocytes Jaime-Oildale Bodies Echinocytes Acanthocytes (Spur) Rouleaux RBC Agglutinates Schistocytes Sezary Cell PT INR Sodium Potassium Chloride Carbon Dioxide Anion Gap BUN Creatinine Est Cr Clr Drug Dosing Est GFR ( Amer) Est GFR (Non-Af Amer) BUN/Creatinine Ratio Glucose POC Glucose 169 H Estimat Average Glucose Hemoglobin A1c Calcium Magnesium 2.2 Total Bilirubin AST ALT Alkaline Phosphatase Troponin I High Sens 7.9 D Total Protein Albumin Globulin Albumin/Globulin Ratio Lipase Urine Color Yellow Urine Appearance Clear Urine pH 7.0 Ur Specific Kenton > 1.045 H Urine Protein Negative Urine Glucose (UA) Negative Urine Ketones Trace H Urine Blood Negative Urine Nitrite Negative Urine Bilirubin Negative Urine Urobilinogen Negative Ur Leukocyte Esterase Negative SARS-CoV-2, RNA, NAAT Blood Parasites ID 01/05/22 01/05/22 01/05/22 06:06 06:06 06:06 WBC 7.36 RBC 4.17 L Hgb 14.0 Hct 38.7 L MCV 92.8 MCH 33.6 MCHC 36.2 H RDW Std Deviation 42.1 RDW Coeff of Pedro 12.3 Plt Count 151 MPV 10.3 Immature Gran % (Auto) 0.4 Neut % (Auto) 52.7 Lymph % (Auto) 34.4 Rush % (Auto) 9.8 Eos % (Auto) 1.9 Baso % (Auto) 0.8 Neut # (Auto) 3.88 Lymph # (Auto) 2.53 Rush # (Auto) 0.72 Eos # (Auto) 0.14 Baso # (Auto) 0.06 Immature Gran # (Auto) 0.03 H Absolute Nucleated RBC Nucleated RBC % (auto) Neutrophils % (Manual) Band Neutrophils % Lymphocytes % (Manual) Prolymphocyte % Reactive Lymphs % (Man) Monocytes % (Manual) Eosinophils % (Manual) Basophils % (Manual) Metamyelocytes % (Man) Myelocytes % (Man) Promyelocytes % (Man) Blast Cells % (Manual) Plasma Cell % (Manual) Other Cells % Nucleated RBC % Neutrophils # (Manual) Band Neutrophils # Total Absolute Neuts Lymphocytes # (Manual) Prolymphocyte # Reactive Lymphs # Total Abs Lymphocytes Monocytes # (Manual) Eosinophils # (Manual) Basophils # (Manual) Metamyelocytes # (Man) Myelocytes # (Manual) Promyelocytes # (Man) Blast Cells # (Man) Plasma Cell # (Manual) Other Cells # Nucleated RBCs # (Man) Hypersegmented Neuts Hyposegmented Neuts Hypogranular Neuts Large Granular Lymphs # Lrg Granular Lymphs Hairy Cells Smudge Cells Toxic Granulation Toxic Vacuolation Dohle Bodies Cammie Rods Platelet Estimate Hypogranular Platelets Clumped Platelets Giant Platelets Platelet Satelliting RBC Morphology Polychromasia Hypochromasia Poikilocytosis Basophilic Stippling Anisocytosis Microcytosis Macrocytosis Spherocytes Pappenheimer Bodies Sickle Cells Target Cells Tear Drop Cells Ovalocytes Stomatocytes Jaime-Oildale Bodies Echinocytes Acanthocytes (Spur) Rouleaux RBC Agglutinates Schistocytes Sezary Cell PT 25.2 H INR 2.5 H Sodium 138 Potassium 4.0 Chloride 106 Carbon Dioxide 27 Anion Gap 5 BUN 22 Creatinine 0.88 Est Cr Clr Drug Dosing 100.3 Est GFR ( Amer) 104.5 Est GFR (Non-Af Amer) 90.1 BUN/Creatinine Ratio 25.0 H Glucose 122 H POC Glucose Estimat Average Glucose Hemoglobin A1c Calcium 8.8 Magnesium Total Bilirubin AST ALT Alkaline Phosphatase Troponin I High Sens 8.6 Total Protein Albumin Globulin Albumin/Globulin Ratio Lipase Urine Color Urine Appearance Urine pH Ur Specific [place]on Urine Protein Urine Glucose (UA) Urine Ketones Urine Blood Urine Nitrite Urine Bilirubin Urine Urobilinogen Ur Leukocyte Esterase SARS-CoV-2, RNA, NAAT Blood Parasites ID 01/05/22 01/05/22 06:06 07:59 WBC RBC Hgb Hct MCV MCH MCHC RDW Std Deviation RDW Coeff of Pedro Plt Count MPV Immature Gran % (Auto) Neut % (Auto) Lymph % (Auto) Rush % (Auto) Eos % (Auto) Baso % (Auto) Neut # (Auto) Lymph # (Auto) Rush # (Auto) Eos # (Auto) Baso # (Auto) Immature Gran # (Auto) Absolute Nucleated RBC Nucleated RBC % (auto) Neutrophils % (Manual) Band Neutrophils % Lymphocytes % (Manual) Prolymphocyte % Reactive Lymphs % (Man) Monocytes % (Manual) Eosinophils % (Manual) Basophils % (Manual) Metamyelocytes % (Man) Myelocytes % (Man) Promyelocytes % (Man) Blast Cells % (Manual) Plasma Cell % (Manual) Other Cells % Nucleated RBC % Neutrophils # (Manual) Band Neutrophils # Total Absolute Neuts Lymphocytes # (Manual) Prolymphocyte # Reactive Lymphs # Total Abs Lymphocytes Monocytes # (Manual) Eosinophils # (Manual) Basophils # (Manual) Metamyelocytes # (Man) Myelocytes # (Manual) Promyelocytes # (Man) Blast Cells # (Man) Plasma Cell # (Manual) Other Cells # Nucleated RBCs # (Man) Hypersegmented Neuts Hyposegmented Neuts Hypogranular Neuts Large Granular Lymphs # Lrg Granular Lymphs Hairy Cells Smudge Cells Toxic Granulation Toxic Vacuolation Dohle Bodies Cammie Rods Platelet Estimate Hypogranular Platelets Clumped Platelets Giant Platelets Platelet Satelliting RBC Morphology Polychromasia Hypochromasia Poikilocytosis Basophilic Stippling Anisocytosis Microcytosis Macrocytosis Spherocytes Pappenheimer Bodies Sickle Cells Target Cells Tear Drop Cells Ovalocytes Stomatocytes Jaime-Oildale Bodies Echinocytes Acanthocytes (Spur) Rouleaux RBC Agglutinates Schistocytes Sezary Cell PT INR Sodium Potassium Chloride Carbon Dioxide Anion Gap BUN Creatinine Est Cr Clr Drug Dosing Est GFR ( Amer) Est GFR (Non-Af Amer) BUN/Creatinine Ratio Glucose POC Glucose 112 H Estimat Average Glucose 134 Hemoglobin A1c 6.3 H Calcium Magnesium Total Bilirubin AST ALT Alkaline Phosphatase Troponin I High Sens Total Protein Albumin Globulin Albumin/Globulin Ratio Lipase Urine Color Urine Appearance Urine pH Ur Specific [place] Urine Protein Urine Glucose (UA) Urine Ketones Urine Blood Urine Nitrite Urine Bilirubin Urine Urobilinogen Ur Leukocyte Esterase SARS-CoV-2, RNA, NAAT Blood Parasites ID Medications Administered Current Inpatient Medications Acetaminophen (Acetaminophen 325 Mg Tab) 650 mg PO Q4H PRN PRN Reason: Pain or Fever Stop: 02/04/22 01:36 Hydrocodone Bitart/Acetaminophen (Hydrocodone/Acetaminophen 10/325 Tab) 1 tab PO Q6H PRN PRN Reason: Severe Pain (Scale Score 7-10) Stop: 01/19/22 01:36 Last Admin: 01/05/22 02:32 Dose: 1 tab Albuterol (Albuterol Hfa 8 Gm Inhaler) 2 puffs INH Q2H PRN PRN Reason: sob/wheeze Stop: 02/04/22 02:50 Last Admin: 01/05/22 03:25 Dose: 2 puffs Aspirin (Aspirin 81 Mg Ectab) 81 mg PO QAM VALERIE Stop: 02/04/22 08:59 Last Admin: 01/05/22 09:17 Dose: 81 mg Atenolol (Atenolol 25 Mg Tablet) 25 mg PO DAILY VALERIE Stop: 02/04/22 08:59 Last Admin: 01/05/22 09:18 Dose: 25 mg Atenolol (Atenolol 25 Mg Tablet) 12.5 mg PO PM PRN PRN Reason: PALPITATIONS Stop: 02/04/22 02:09 Baclofen (Baclofen 10 Mg Tab) 10 mg PO BID PRN PRN Reason: Muscle Spasm Stop: 02/04/22 01:36 Dextrose (Dextrose 50% 50 Ml Syringe) 25 - 50 ml IV UD PRN; Protocol PRN Reason: Hypoglycemia Protocol Stop: 02/04/22 01:36 Duloxetine HCl (Duloxetine Hcl 30 Mg Cap) 30 mg PO QAM VALERIE Stop: 02/04/22 08:59 Last Admin: 01/05/22 09:18 Dose: 30 mg Fluticasone Furoate (Fluticasone Furoate 100mcg 14 Puffs/Inhaler) 1 puffs INH DAILY VALERIE Stop: 02/04/22 08:59 Last Admin: 01/05/22 09:18 Dose: 1 puffs Fluticasone Propionate (Fluticasone Propionate Na Spr 16 Gm Btl) 1 sprays NA DAILY VALERIE Stop: 02/04/22 08:59 Last Admin: 01/05/22 09:19 Dose: 1 sprays Glucagon (Glucagon For Inj 1 Mg Vial) 1 mg SQ UD PRN; Protocol PRN Reason: Hypoglycemia Protocol Stop: 02/04/22 01:36 Glucose (Glucose 40% Gel 15 Gm Tube) 15 - 30 gm PO UD PRN; Protocol PRN Reason: Hypoglycemia Protocol Stop: 02/04/22 01:36 Glucose (Glucose 10 Tab/Tube) 4 - 8 tab PO UD PRN; Protocol PRN Reason: Hypoglycemia Treatment Stop: 02/04/22 01:36 Hydroxychloroquine Sulfate (Hydroxychloroquine Sulfate 200 Mg Tab) 400 mg PO QPM VALERIE Stop: 02/04/22 20:59 Sodium Chloride (Nss 1000ml) 1,000 mls @ 75 mls/hr IV .[id number] ONE Stop: 01/05/22 13:13 Last Admin: 01/05/22 00:55 Dose: 75 mls/hr Promethazine HCl 12.5 mg/ (Sodium Chloride) 50.5 mls @ 202 mls/hr IV Q6H PRN PRN Reason: Nausea And Vomiting Stop: 02/04/22 01:36 Insulin Aspart (Insulin Aspart Per Unit) 0 units SC ACHS [facility] Stop: 02/04/22 07:29 Last Admin: 01/05/22 10:25 Dose: Not Given Insulin Glargine (Lantus Per Unit Charge) 10 units SQ BID [facility] Stop: 02/04/22 05:34 Last Admin: 01/05/22 05:58 Dose: 10 units Loratadine (Loratadine 10 Mg Tab) 10 mg PO QAM [facility] Stop: 02/04/22 08:59 Last Admin: 01/05/22 09:19 Dose: 10 mg Lorazepam (Lorazepam 0.5 Mg Tab) 0.5 mg PO BID [facility] Stop: 02/04/22 01:36 Last Admin: 01/05/22 09:23 Dose: 0.5 mg Lorazepam (Lorazepam 0.5 Mg Tab) 0.5 mg PO TID PRN PRN Reason: Anxiety Stop: 02/04/22 01:36 Miscellaneous (Carbohydrates For Hypoglycemia ) 15 - 30 gm PO UD PRN PRN Reason: Hypoglycemia Protocol Stop: 02/04/22 01:36 Montelukast Sodium (Montelukast Sodium 10 Mg Tablet) 10 mg PO QAM [facility] Stop: 02/04/22 08:59 Last Admin: 01/05/22 09:19 Dose: 10 mg Morphine Sulfate (Morphine Sulfate 4 Mg/Ml 1 Ml Carp\Vial) 4 mg IV Q6H PRN PRN Reason: Pain Stop: 01/19/22 01:36 Multivitamins (Multivitamin Tab) 1 tab PO QAM [facility] Stop: 02/04/22 08:59 Last Admin: 01/05/22 09:19 Dose: 1 tab Nitroglycerin (Nitroglycerin Sl 0.4 Mg/Tab Tab) 0.4 mg SL UD PRN PRN Reason: Chest Pain Stop: 02/04/22 01:36 Pantoprazole Sodium (Pantoprazole 40 Mg Tab) 40 mg PO BID [facility] Stop: 02/04/22 01:36 Last Admin: 01/05/22 09:19 Dose: 40 mg Polyethylene Glycol (Polyethylene (Miralax) 17 Gm Pack) 17 gm PO DAILY PRN PRN Reason: Constipation Stop: 02/04/22 01:36 Prednisone (Prednisone 5 Mg Tab) 5 mg PO QAM [facility] Stop: 02/04/22 08:59 Last Admin: 01/05/22 09:19 Dose: 5 mg Pregabalin (Pregabalin 75 Mg Cap) 75 mg PO BID [facility] Stop: 02/04/22 01:36 Last Admin: 01/05/22 09:23 Dose: 75 mg Trazodone HCl (Trazodone Hcl 50 Mg Tab) 50 mg PO HS [facility] Stop: 02/04/22 01:36 Last Admin: 01/05/22 02:32 Dose: 50 mg Umeclidinium/Vilanterol (Umeclidinium/Vilanterol 62.5/25mcg 7 Puffs/Inhaler) 1 puffs INH DAILY [facility] Stop: 02/04/22 08:59 Last Admin: 01/05/22 09:20 Dose: 1 puffs
--- NOTE | 2022-01-05 10:52 | Gastrointestinal Consultation ---
Date of Consultation January 05, 2022 Assessment & Plan (1) Abdominal pain, epigastric: Likely multifactorial: 1. Review of records and recent imaging suggest chronic cholecystitis. He had seen Dr. Fulton in 2019 w plans for cholecystectomy but was cancelled due to cardiac issues at that time. 2. H Pylori 3. Narcotic induced constipation Plan 1. OP Surgery consult to consider cholecystectomy. Has seen Dr. Fulton in the past. 2. Has OP EGD scheduled for Feb [address] Al w plans for H Pylori culture and sensitivities. 3. Recommend Linzess 290mcg one daily. 4. Regular consistency diet. 5. Continue BID PPI and nightly Famotidine on discharge. 6. GI will sign off. Please notify us of new/worsening GI issues. Supervising Physician Co-Signing Physician Notes I performed a history and physical examination of the patient today, including specifically on physical exam - soft abdomen. I have discussed the patient's management with the advanced practitioner. Please refer to the nurse practitioner's note for the documented findings and plan of care. Likely IBS, advise to use laxatives. OP surgery eval for cholecystectomy. Recall GI if needed. History of Present Illness Reason for Consultation: Epigastric Pain Requesting Physician: Dr. Edgardo Mohan Attending Physician: Chandler Henriquez MD History of Present Illness Mr. 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 He presented to the ED on 01/04/22 for LUQ abd/chest pain. He was seen by cardiology who feels pain is most likely GI and do not recommend further cardiac testing. Regarding hx of H Pylori, A review of OP records shows EGD path in 2019 w Gastric antral mucosa with mild chronic inactive gastritis, involved by H. pylori organisms. Sensitivities through [facility] reported resistance to clarithromycin. He underwent multiple triple and quadruple treatment courses over the next few years w improvement in the pain but during tx but w/o resolution of H Pylori on f/u stool testing. He was seen by Smiley RIGGINS in June 2021 w opinion that he should undergo EGD for repeat sensitivities. EGD was completed in July 2021 w H Pylori, but, unfortunately the culture/sensitivities were not obtained. He is rescheduled for EGD in Jan 2022. The pt reports chronic epigastric pain for years w intermittent episodes of severe bloating/diffuse pain. He tends towards constipation. Dulcolax, fiber, miralax and Mg Citrate have not been effective. He is on narcotics for back pain. When on the H Pylori tx, he has more frequent BMs and doesn't get severe episodes of pain. He has some nausea, no vomiting, no blood in BMs. Allergies Allergy/AdvReac Type Severity Reaction Status Date / Time capsaicin Allergy Intermediate RASH WITH Verified 08/09/21 10:26 JOINT SWELLING-CAN TAKE ASPIRIN diclofenac Allergy Intermediate RASH WITH Verified 08/09/21 10:26 JOINT SWELLING-CAN TAKE ASPIRIN Diclopak AdvReac Unknown RASH WITH Verified 03/18/16 16:31 JOINT SWELLING-CAN TAKE ASPIRIN Home Medications Medication Instructions Recorded Confirmed Type albuterol sulfate 90 mcg/actuation 2 puff inhalation QID PRN 01/16/19 01/04/22 History aerosol inhaler (Ventolin HFA) Shortness Of Breath Or Wheezing aspirin 81 mg tablet,delayed 81 mg PO QAM 01/16/19 01/04/22 History release (Aspir-) atenolol 25 mg tablet 25 mg PO UD 01/16/19 01/04/22 History baclofen 10 mg tablet 10 mg PO BID PRN Muscle Spasm 01/16/19 01/04/22 History calcium carbonate 333 mg-magnesium 1 tab PO QAM 01/16/19 01/04/22 History oxide 133 mg-zinc sulf 5 mg tablet coQ10 (ubiquinol) 200 mg capsule 200 mg PO QAM 01/16/19 01/04/22 History furosemide 20 mg tablet (Lasix) 20 mg PO QAM PRN Edema 01/16/19 01/04/22 History ipratropium 0.5 mg-albuterol 3 mg 3 ml inhalation Q6 PRN Shortness 01/16/19 01/04/22 History (2.5 mg base)/3 mL nebulization Of Breath Or Wheezing soln montelukast 10 mg tablet 10 mg PO QAM 01/16/19 01/04/22 History (Singulair) multivitamin 1 tab PO QAM 01/16/19 01/04/22 History pantoprazole 40 mg tablet,delayed 40 mg PO BID 01/16/19 01/04/22 History release polyethylene glycol 3350 17 17 g PO DAILY PRN Constipation 01/16/19 01/04/22 History gram/dose oral powder (Miralax) warfarin 5 mg tablet 10 mg PO QAM 01/16/19 01/04/22 History insulin glargine 100 unit/mL (3 1 unit subcut UD 01/22/19 01/04/22 History mL) subcutaneous pen (Basaglar KwikPen U-100 Insulin) nitroglycerin 0.4 mg sublingual 0.4 mg sublingual UD PRN CHEST PAIN 01/22/19 01/04/22 History tablet potassium chloride 10 mEq 10 meq PO QAM 01/22/19 01/04/22 History capsule,extended release trazodone 50 mg tablet 50 mg PO HS 01/22/19 01/04/22 History duloxetine 30 mg capsule,delayed 30 mg PO QAM 03/16/19 01/04/22 History release prednisone 10 mg tablet 5 mg PO QAM 03/16/19 01/04/22 History insulin aspart U-100 100 unit/mL 1 sliding scale dose subcut 03/22/19 01/04/22 History subcutaneous solution (Novolog USEASDIRECTD U-100 Insulin aspart) fluticasone propionate 50 1 spray intranasal DAILY 08/09/21 01/04/22 History mcg/actuation nasal spray,suspension hydrocodone 10 mg-acetaminophen 1 tab PO Q6H PRN Severe Pain 08/09/21 01/04/22 History 325 mg tablet (Scale Score 7-10) hydroxychloroquine 200 mg tablet 400 mg PO QPM 08/09/21 01/04/22 History (Plaquenil) loratadine 10 mg chewable tablet 10 mg PO QAM 08/09/21 01/04/22 History (Claritin) lorazepam 0.5 mg tablet (Ativan) 0.5 mg PO BID 08/09/21 01/04/22 History pregabalin 75 mg capsule (Lyrica) 75 mg PO BID 08/09/21 01/04/22 History fluticasone fur. 100 mcg-umeclid 1 inh inhalation DAILY 01/04/22 01/04/22 History 62.5 mcg-vilant 25 mcg inhalat.powder (Trelegy Ellipta) Patient History Medical History Anxiety and depression Asthma LAST USED RESCUE INHALER>YESTERDAY Atrial fibrillation REASON FOR COUMADIN BPH (benign prostatic hyperplasia) COPD exacerbation Diabetes mellitus, type 2 Fibromyalgia GERD (gastroesophageal reflux disease) History of cardioversion MAY 2018 History of COVID-19 03/2021>BODY ACHES/FEVER *CONT. SOB WITH EXERTION ? RELATED TO COVID History of Helicobacter pylori infection History of pacemaker OCTOBER 2018 - [facility] HTN (hypertension) Hx of myocardial infarction X6; 5 FROM [id number] AND 1 IN 2004 Hyperlipidemia Insomnia Migraine Osteoarthritis Paralysis of diaphragm (Unknown) LEFT DIAPHRAGM (UNKNOWN REASON) Peripheral neuropathy Post traumatic stress disorder Restless leg syndrome Spinal stenosis Ulcerative colitis Surgical History Family history of reaction to anesthesia DAUGHTER-SLOW TO WAKE UP History of Achilles tendon repair LEFT History of appendectomy History of colonoscopy History of ERCP GALL STONES History of esophagogastroduodenoscopy (EGD) History of heart artery stent 8 TOTAL STENTS (LAST ONE PLACED AUGUST 2018 AT [facility] IN [place]) History of permanent cardiac pacemaker placement OCTOBER 2018>MONITORED BY [facility]/DR. HALL History of tooth extraction Hx of cardiac catheterization TOTAL 8 STENTS - LAST CATH AUGUST 2018 [facility] Hx of metal removed from eye Hx of transurethral resection of prostate Family History Grandfather (Paternal) Family history of diabetes mellitus Grandfather (Maternal) Family hx of colon cancer Social History Smoking Status: Current every day smoker Cigarettes Per Day: 10-20; Second Hand Exposure: Yes (IN THE PAST); Do You Dip or Chew Tobacco: No; Tobacco Cessation Education Requested by Patient: No Hx Alcohol Use: No Hx Substance Use: No Preferred Language: Belarusian Communication Ability: Effective Newspaper Correspondent Required: No Beliefs That Will Affect Care: None Current Living Situation: Family Current Living Situation Comment: WITH DAUGHTER /HAS AN APARTMENT IN HER HOUSE Other Information That Helps Us Care for You: No Feels Safe at Home: Yes Safety Concerns: Feels Safe At This Time Assistive Devices: Cane Review of Systems Review of Systems: ROS: Gen: + weakness and brain fog since COVID in the past year. No fevers, weight loss Eyes: No eye redness, or pain, no recent vision changes Resp: No SOB, no cough Cardio: No palpitations/irregular beats, no chest pain GI: As per HPI, otherwise (-) : Denies pain on urination Skin: No jaundice, itching or new rashes Physical Exam Constitutional: WD/WN, vitals as above Eyes: PERRL, conjunctivae normal, anicteric sclerae ENMT: external ear and nose normal, oropharynx normal Neck: trachea midline, no thyromegaly Respiratory: normal respiratory effort, lungs clear to auscultation Cardiovascular: RRR, no murmur, no edema Gastrointestinal (Abdomen): Inspection/Auscultation: abdomen normal to i nspection and normal bowel sounds; abdomen not distended Percussion/Palpation: + abdomen tender (epigastric) and abdomen soft; no hernia, no abdominal mass and no ascites Musculoskeletal: no cyanosis or clubbing, extremities motor strength 5/5 Skin: no rashes, warm and dry Neurologic: PERRL, EOMI, accommodation nl, no face palsy, no dysarthria Psychiatric: A+Ox3, euthymic affect Lymphatic: no cervical or axillary lymphadenopathy Results & Data ([facility]) Vital Signs (Past 12 Hours) Vital Signs Temp Pulse Pulse Resp BP BP Pulse Ox 01/05/22 08:11 36.4 C L 62 18 95/59 L 97 01/05/22 03:27 67 18 97 01/05/22 03:20 36.8 C 59 L 16 113/64 98 01/05/22 01:00 01/05/22 01:00 36.9 C 69 18 150/88 H 97 01/05/22 00:02 67 17 135/91 97 01/04/22 23:00 65 19 97 O2 Del Method 01/05/22 08:11 Room Air 01/05/22 03:27 Room Air 01/05/22 03:20 Room Air 01/05/22 01:00 Room Air 01/05/22 01:00 Room Air 01/05/22 00:02 Room Air 01/04/22 23:00 Room Air Laboratory Results WBC 7.3, Hb 14, Hct 38, Plts 151, PT 25.2, INR 2.5, Na 138, K 4.0, Cl 106, CO2 27, BUN 22, Cr 0.88, gluose 112. Diagnostic Findings CTAP w IV contrast on 01/04/22: Hepatic steatosis. Otherwise no acute abnormalities are seen.
[2022-01-05] MEDS: DICYCLOMINE HCL 10 MG CAP PO SCH ×2 (13:34→21:19)
--- NOTE | 2022-01-05 14:23 | Electrocardiogram Report ---
Test Reason : Blood Pressure : / mmHG Vent. Rate : 066 BPM Atrial Rate : 066 BPM P-R Int : 000 ms QRS Dur : 090 ms QT Int : 378 ms P-R-T Axes : 000 -34 027 degrees QTc Int : 396 ms Atrial-paced rhythm Left axis deviation Inferior infarct (cited on or before 14-FEB-2001) Abnormal ECG When compared with ECG of 16-MAR-2019 18:16, Electronic atrial pacemaker now present QRS axis Shifted left QT has shortened Confirmed by Erik Desir ([id number]) on 01/05/2022 2:22:33 PM Referred By: REFERRED SELF Confirmed By:Erik Desir
--- NOTE | 2022-01-05 14:34 | Electrocardiogram Report ---
Test Reason : Blood Pressure : / mmHG Vent. Rate : 070 BPM Atrial Rate : 070 BPM P-R Int : 224 ms QRS Dur : 098 ms QT Int : 402 ms P-R-T Axes : 000 -34 023 degrees QTc Int : 434 ms Atrial-paced rhythm with prolonged AV conduction with frequent Premature ventricular complexes Left axis deviation Inferior infarct (cited on or before 14-FEB-2001) Abnormal ECG When compared with ECG of 04-JAN-2022 18:11, (unconfirmed) Premature ventricular complexes are now Present Confirmed by Erik Desir ([id number]) on 01/05/2022 2:34:01 PM Referred By: REFERRED SELF Confirmed By:Erik Desir
--- NOTE | 2022-01-05 16:06 | Hospitalist Progress Note ---
Date of Service January 05, 2022 Assessment & Plan (1) Abdominal pain: (2) H. pylori infection: (3) PTSD (post-traumatic stress disorder): (4) HTN (hypertension): (5) Anxiety and depression: (6) Peripheral neuropathy: (7) Fibromyalgia: (8) Diabetes mellitus, type 2: (9) Asthma: (10) Narcotic dependence: (11) Tobacco use disorder: Plan This is a 66yo M with a PMH of H. pylori, Type 2 diabetes, tobacco use disorder, narcotic dependence, dyslipidemia, COPD, CAD, hypertension, chronic atrial fibrillation on coumadin, cardiac pacemaker, reactive arthritis, depression, drug-induced constipation and other medical problems as below who presents with left upper abdominal pain x 1 week. Upper abdominal pain Elevated high-sensitivity troponin of undetermined significance History of H pylori infection Afebrile, normotensive and saturating well in room air CT abdomen and pelvis as above; hepatic steatosis no acute abnormality. High-sensitivity troponin initially borderline but normalized after Echo shows EF of 55 to 60%; no significant valvular abnormality. Cardiology on board; recommend no further work-up GI on board; recommend outpatient surgical evaluation and outpatient endoscopy Plan; --Will obtain ultrasound liver with assessment for the gallbladder. Trial of bisacodyl to see if it helps with the pain. 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 Admission and Anticipated Discharge Date Admission Date: January 04, 2022 Subjective Patient seen and examined at bedside. He continues to complain of abdominal pain across the upper abdomen. The pain is more evident when he changes position. Review of Systems Review of Systems: All systems reviewed & are unremarkable except as noted in Subjective Physical Exam Physical Exam: General Appearance: WD/WN, vitals as above, NAD, sitting up in bed, conversing easily Head: normocephalic, atraumatic Eyes: normal inspection, PERRL, conjunctivae normal, anicteric sclerae ENT: external ear and nose normal, oropharynx normal Neck: normal visual inspection, trachea midline, no thyromegaly Respiratory: normal respiratory effort, lungs clear to auscultation, no wheeze, rales, rhonchi. No accessory muscle use Cardiovascular: regular rate, rhythm, no murmur, normal peripheral pulses, no BLE edema. Vessels: no JVD Chest: normal inspection of chest Abdomen/GI: Soft, mild tenderness present in epigastric region. Extremities/Musculoskeletal: no cyanosis or clubbing, extremities motor strength 5/5 Neurologic: PERRL, EOMI, accommodation nl, no face palsy, no dysarthria, CN's II-XI intact bilaterally and moves all extremities Psychiatric: A+Ox3, + anxious Skin: no rashes, normal color, warm/dry Results & Data Results & Data ([facility]) Vital Signs (Past 12 Hours) Vital Signs Temp Pulse Resp BP Pulse Ox O2 Del Method 01/05/22 15:33 36.3 C L 63 18 119/75 96 Room Air 01/05/22 08:00 Room Air 01/05/22 11:54 36.7 C 65 20 124/82 97 Room Air 01/05/22 08:11 36.4 C L 62 18 95/59 L 97 Room Air Laboratory Results Laboratory Results WBC 7.36 K/ul (4.8-10.8) 01/05/22 06:06 RBC 4.17 M/uL (4.63-6.08) L 01/05/22 06:06 Hgb 14.0 g/dl (14.0-18.0) 01/05/22 06:06 Hct 38.7 % (40.1-51.0) L 01/05/22 06:06 MCV 92.8 fL (80.0-100.0) 01/05/22 06:06 MCH 33.6 pg (25.0-34.0) 01/05/22 06:06 MCHC 36.2 g/dL (32.0-36.0) H 01/05/22 06:06 RDW Std Deviation 42.1 fL (36.4-46.3) 01/05/22 06:06 RDW Coeff of Pedro 12.3 % (11.5-14.5) 01/05/22 06:06 Plt Count 151 K/uL (130-400) 01/05/22 06:06 MPV 10.3 fL (9.4-12.4) 01/05/22 06:06 Immature Gran % (Auto) 0.4 % 01/05/22 06:06 Neut % (Auto) 52.7 % 01/05/22 06:06 Lymph % (Auto) 34.4 % 01/05/22 06:06 [place] % (Auto) 9.8 % 01/05/22 06:06 Eos % (Auto) 1.9 % 01/05/22 06:06 Baso % (Auto) 0.8 % 01/05/22 06:06 Neut # (Auto) 3.88 K/uL (1.4-6.5) 01/05/22 06:06 Lymph # (Auto) 2.53 K/uL (1.2-3.4) 01/05/22 06:06 [place] # (Auto) 0.72 K/uL (0.24-0.82) 01/05/22 06:06 Eos # (Auto) 0.14 K/uL (0-0.50) 01/05/22 06:06 Baso # (Auto) 0.06 K/uL (0-0.2) 01/05/22 06:06 Immature Gran # (Auto) 0.03 K/uL (0.00-0.02) H 01/05/22 06:06 Absolute Nucleated RBC Cancelled 01/04/22 16:50 Nucleated RBC % (auto) Cancelled 01/04/22 16:50 Neutrophils % (Manual) Cancelled 01/04/22 16:50 Band Neutrophils % Cancelled 01/04/22 16:50 Lymphocytes % (Manual) Cancelled 01/04/22 16:50 Prolymphocyte % Cancelled 01/04/22 16:50 Reactive Lymphs % (Man) Cancelled 01/04/22 16:50 Monocytes % (Manual) Cancelled 01/04/22 16:50 Eosinophils % (Manual) Cancelled 01/04/22 16:50 Basophils % (Manual) Cancelled 01/04/22 16:50 Metamyelocytes % (Man) Cancelled 01/04/22 16:50 Myelocytes % (Man) Cancelled 01/04/22 16:50 Promyelocytes % (Man) Cancelled 01/04/22 16:50 Blast Cells % (Manual) Cancelled 01/04/22 16:50 Plasma Cell % (Manual) Cancelled 01/04/22 16:50 Other Cells % Cancelled 01/04/22 16:50 Nucleated RBC % Cancelled 01/04/22 16:50 Neutrophils # (Manual) Cancelled 01/04/22 16:50 Band Neutrophils # Cancelled 01/04/22 16:50 Total Absolute Neuts Cancelled 01/04/22 16:50 Lymphocytes # (Manual) Cancelled 01/04/22 16:50 Prolymphocyte # Cancelled 01/04/22 16:50 Reactive Lymphs # Cancelled 01/04/22 16:50 Total Abs Lymphocytes Cancelled 01/04/22 16:50 Monocytes # (Manual) Cancelled 01/04/22 16:50 Eosinophils # (Manual) Cancelled 01/04/22 16:50 Basophils # (Manual) Cancelled 01/04/22 16:50 Metamyelocytes # (Man) Cancelled 01/04/22 16:50 Myelocytes # (Manual) Cancelled 01/04/22 16:50 Promyelocytes # (Man) Cancelled 01/04/22 16:50 Blast Cells # (Man) Cancelled 01/04/22 16:50 Plasma Cell # (Manual) Cancelled 01/04/22 16:50 Other Cells # Cancelled 01/04/22 16:50 Nucleated RBCs # (Man) Cancelled 01/04/22 16:50 Hypersegmented Neuts Cancelled 01/04/22 16:50 Hyposegmented Neuts Cancelled 01/04/22 16:50 Hypogranular Neuts Cancelled 01/04/22 16:50 Large Granular Lymphs Cancelled 01/04/22 16:50 # Lrg Granular Lymphs Cancelled 01/04/22 16:50 Hairy Cells Cancelled 01/04/22 16:50 Smudge Cells Cancelled 01/04/22 16:50 Toxic Granulation Cancelled 01/04/22 16:50 Toxic Vacuolation Cancelled 01/04/22 16:50 Dohle Bodies Cancelled 01/04/22 16:50 Cammie Rods Cancelled 01/04/22 16:50 Platelet Estimate Cancelled 01/04/22 16:50 Hypogranular Platelets Cancelled 01/04/22 16:50 Clumped Platelets Cancelled 01/04/22 16:50 Giant Platelets Cancelled 01/04/22 16:50 Platelet Satelliting Cancelled 01/04/22 16:50 RBC Morphology Cancelled 01/04/22 16:50 Polychromasia Cancelled 01/04/22 16:50 Hypochromasia Cancelled 01/04/22 16:50 Poikilocytosis Cancelled 01/04/22 16:50 Basophilic Stippling Cancelled 01/04/22 16:50 Anisocytosis Cancelled 01/04/22 16:50 Microcytosis Cancelled 01/04/22 16:50 Macrocytosis Cancelled 01/04/22 16:50 Spherocytes Cancelled 01/04/22 16:50 Pappenheimer Bodies Cancelled 01/04/22 16:50 Sickle Cells Cancelled 01/04/22 16:50 Target Cells Cancelled 01/04/22 16:50 Tear Drop Cells Cancelled 01/04/22 16:50 Ovalocytes Cancelled 01/04/22 16:50 Stomatocytes Cancelled 01/04/22 16:50 Jaime-Avant Bodies Cancelled 01/04/22 16:50 Echinocytes Cancelled 01/04/22 16:50 Acanthocytes (Spur) Cancelled 01/04/22 16:50 Rouleaux Cancelled 01/04/22 16:50 RBC Agglutinates Cancelled 01/04/22 16:50 Schistocytes Cancelled 01/04/22 16:50 Sezary Cell Cancelled 01/04/22 16:50 PT 25.2 Seconds (9.0-12.0) H 01/05/22 06:06 INR 2.5 (0.9-1.1) H 01/05/22 06:06 Sodium 138 mmol/L (136-145) 01/05/22 06:06 Potassium 4.0 mmol/L (3.5-5.1) 01/05/22 06:06 Chloride 106 mmol/L (98-107) 01/05/22 06:06 Carbon Dioxide 27 mmol/L (21-32) 01/05/22 06:06 Anion Gap 5 (3-11) 01/05/22 06:06 BUN 22 mg/dl (6-23) 01/05/22 06:06 Creatinine 0.88 mg/dl (0.6-1.4) 01/05/22 06:06 Est Cr Clr Drug Dosing 100.3 ml/min 01/05/22 06:06 Est GFR ( Amer) 104.5 ml/min 01/05/22 06:06 Est GFR (Non-Af Amer) 90.1 ml/min 01/05/22 06:06 BUN/Creatinine Ratio 25.0 (10-20) H 01/05/22 06:06 Glucose 122 mg/dl (70-99(Fasting)) H 01/05/22 06:06 POC Glucose 136 mg/dl (70-99) H 01/05/22 11:30 Estimat Average Glucose 134 mg/dl 01/05/22 06:06 Hemoglobin A1c 6.3 % (4.5-5.6) H 01/05/22 06:06 Calcium 8.8 mg/dl (8.5-10.1) 01/05/22 06:06 Magnesium 2.2 mg/dl (1.7-2.4) 01/04/22 21:38 Total Bilirubin 0.8 mg/dl (0.2-1.0) 01/04/22 16:50 AST 29 U/L (13-39) 01/04/22 16:50 ALT 48 U/L (7-52) 01/04/22 16:50 Alkaline Phosphatase 48 U/L (34-104) 01/04/22 16:50 Troponin I High Sens 8.6 pg/ml (0-20) 01/05/22 06:06 Total Protein 7.5 gm/dl (6.0-8.3) 01/04/22 16:50 Albumin 5.0 gm/dl (3.4-5.0) 01/04/22 16:50 Globulin 2.5 gm/dl (2.5-4.0) 01/04/22 16:50 Albumin/Globulin Ratio 2.0 (0.9-2) 01/04/22 16:50 Lipase 33 U/L (11-82) 01/04/22 16:50 Urine Color Yellow 01/04/22 21:26 Urine Appearance Clear (Clear) 01/04/22 21:26 Urine pH 7.0 (4.5-7.5) 01/04/22 21:26 Ur Specific [place] > 1.045 (1.000-1.030) H 01/04/22 21:26 Urine Protein Negative (Negative) 01/04/22 21:26 Urine Glucose (UA) Negative (Negative) 01/04/22 21: Urine Ketones Trace (Negative) H 01/04/22 21:26 Urine Blood Negative (Negative) 01/04/22 21: Urine Nitrite Negative (Negative) 01/04/22 21: Urine Bilirubin Negative (Negative) 01/04/22 21: Urine Urobilinogen Negative (Negative) 01/04/22 21: Ur Leukocyte Esterase Negative (Negative) 01/04/22 21:26 SARS-CoV-2, RNA, NAAT NEGATIVE (NEGATIVE) 01/04/22 18:37 Blood Parasites ID Cancelled 01/04/22 16:50 Impressions Abdomen/Pelvis CT 01/04/22 18:16 CT abd pelvis IV con only CLINICAL HISTORY: upper abd pain TECHNIQUE: Helical axial images of the abdomen and pelvis were obtained and displayed. Automated dose lowering techniques and/or adjustment according to patient size were utilized for this exam. This exam was performed with intravenous contrast. CT DOSE: 1009.44 mGycm COMPARISON: Comparison is made to CT abdomen pelvis 03/16/2019 FINDINGS: Lower chest: Bibasilar atelectasis versus scarring is seen. Atherosclerotic calcifications are seen. Liver: Hepatic steatosis is noted. Focal fatty sparing is seen in the gallbladder fossa. Gallbladder and biliary tree: No calcified gallstones. Normal caliber wall. No intra- or extrahepatic biliary ductal dilation. There is prominence of the gallbladder wall without wall thickening. This may possibly represent wall calcifications, although they were not well seen on prior exam. Pancreas: Mild fatty atrophy is noted. Spleen: Unremarkable. Adrenals: Unremarkable. Kidneys and ureters: Perinephric stranding is noted bilaterally. There is a 15 mm left renal cyst. Bladder: Minimal thickening of the lateral wall is seen. Reproductive organs: Prostatomegaly is seen. Bowel: Patient is status post appendectomy. There is a small duodenal diverticulum. Lymph nodes Retroperitoneal: Calcified jennifer hepatis lymph nodes are unchanged from prior exam. Pelvic: Unremarkable. Mesenteric: Unremarkable. Peritoneum: Normal. Vessels: Atherosclerotic calcifications are seen. Abdominal wall: Unremarkable. Bones: Degenerative changes in the visualized spine. IMPRESSION: Hepatic steatosis. Otherwise no acute abnormalities are seen. ACT 112: Negative or not required by law. Electronically signed by: Tomer Perez M.D. 01/04/2022 7:22 PM Chest X-Ray 01/04/22 20:38 XR chest 1V portable CLINICAL HISTORY: Atypical chest pain. COMPARISON STUDY: Chest radiograph January 16, 2019. Chest CT March 16, 2019. FINDINGS: Dual lead left subclavian pacer is in place. There is no pneumothorax or pleural effusion. Moderate elevation of the left hemidiaphragm is again noted. Left basilar opacity reflects atelectasis. There is no consolidation to suggest pneumonia. No evidence for pulmonary edema. IMPRESSION: 1. No acute cardiopulmonary findings. 2. Stable cardiomegaly. 3. Elevation of the left hemidiaphragm with left basilar atelectasis. ACT 112: Negative or not required by law. Electronically signed by: Uday Shields M.D. 01/05/2022 8:[address] 01/04/22 20:47 CT OF THE HEAD WITHOUT CONTRAST CLINICAL HISTORY: Headache. COMPARISON STUDY: Head CT March 16, 2019. CT DOSE: 537.48 mGy.cm TECHNIQUE: Helical axial images of the head were obtained without IV contrast. Automated exposure control was utilized for the study. A dose lowering technique was utilized adhering to the principles of ALARA. FINDINGS: No acute intracranial hemorrhage, midline shift or mass effect is present. The ventricular system is unremarkable. The basal cisterns are patent. No extra-axial collections are present. There are no findings to suggest acute dural sinus thrombosis or acute territorial infarct. No significant calvarial abnormalities are present. There are postoperative findings within the sinuses. IMPRESSION: No acute intracranial findings. ACT 112: Negative or not required by law. Electronically signed by: Uday Shields M.D. 01/05/2022 8:41 AM
[2022-01-05] MEDS ORDERED: HYDROXYCHLOROQUINE SULFATE 200 MG TAB PO SCH (21:00)
[2022-01-06 06:26] LABS: Chol HDL Ratio 7.9 (0-5)
[2022-01-06] MEDS ORDERED: LINACLOTIDE 145 MCG CAPSULE PO SCH (09:00)
[2022-01-06] MEDS: MONTELUKAST SODIUM 10 MG TABLET PO SCH (09:27)
[2022-01-06] MEDS: ASPIRIN 81 MG ECTAB PO SCH (09:27)
[2022-01-06] MEDS: MULTIVITAMIN TAB PO SCH (09:27)
[2022-01-06] MEDS: ATENOLOL 25 MG TABLET PO SCH (09:27)
[2022-01-06] MEDS: predniSONE 5 MG TAB PO SCH (09:28)
[2022-01-06] MEDS: LORATADINE 10 MG TAB PO SCH (09:28)
[2022-01-06] MEDS: DULoxetine HCL 30 MG CAP PO SCH (09:28)
[2022-01-06] MEDS: DICYCLOMINE HCL 10 MG CAP PO SCH (09:29)
[2022-01-06] MEDS: FLUTICASONE FUROATE 100MCG 14 PUFFS/INHALER INH SCH (09:31)
[2022-01-06] MEDS: FLUTICASONE PROPIONATE NA SPR 16 GM BTL SCH (09:32)
[2022-01-06] MEDS: PANTOprazole 40 MG TAB PO SCH (09:34)
[2022-01-06] MEDS: UMECLIDINIUM/VILANTEROL 62.5/25MCG 7 PUFFS/INHALER INH SCH (09:36)
[2022-01-06] MEDS: LORazepam 0.5 MG TAB PO SCH (09:45)
[2022-01-06] MEDS: PREGABALIN 75 MG CAP PO SCH (09:45)
[2022-01-06] MEDS: INSULIN ASPART PER UNIT SC SCH ×2 (09:45→13:07)
[2022-01-06] MEDS: LANTUS PER UNIT CHARGE SQ SCH (09:46)
--- NOTE | 2022-01-06 09:54 | Ultrasound Report ---
US liver CLINICAL HISTORY: Right upper quadrant pain. History of chronic cholecystitis. COMPARISON STUDY: CT of the abdomen and pelvis January 04, 2022. FINDINGS: Hepatic echogenicity is increased. No hepatic lesions are identified by sonography. There i s no biliary ductal dilatation. Common bile duct measures 5 mm in caliber. Pancreatic body is normal. Head and tail are largely obscured by overlying bowel gas. Gallbladder is contracted. This likely ac counts for mild gallbladder wall thickening. No sonographic Edge sign. No gallstones are identified . There is no right hydronephrosis. IMPRESSION: 1. No gallstones or biliary ductal dilatation. 2. Hepatic steatosis. ACT 112: Negative or not required by law. Electronically signed by: Uday Shields M.D. 01/06/2022 9:52 AM
[2022-01-06] MEDS: HYDROcodone/ACETAMINOPHEN 10/325 TAB PO PRN (09:59)
--- NOTE | 2022-01-06 10:07 | Cardiology Progress Note ---
Date of Service January 06, 2022 Assessment & Plan (1) Abdominal pain, epigastric: (2) Narcotic dependence: (3) Peripheral neuropathy: (4) Fibromyalgia: (5) Diabetes mellitus, type 2: (6) Anxiety and depression: (7) H. pylori infection: (8) Stented coronary artery: Plan GI service consult appreciated. At this point I do not perceive any additional cardiac work-up. The patient can be discharged per the hospitalist service when appropriate. Admission and Anticipated Discharge Date Admission Date: January 04, 2022 Subjective The patient is comfortably sitting in a chair and has no ongoing complaints. Review of Systems Review of Systems: Review of Systems: See HPI for pertinent positives. All other 10 point review of systems are negative. Physical Exam Physical Exam: General: no acute distress and stated age Head: normocephalic, no masses, lesions, tenderness or abnormalities Eyes: conjunctiva are pink and non-injected, sclera clear Neck: supple, no adenopathy, no bruits, normal jugular venous pulse, no hepatojugular reflux Chest: normal shape and normal respiratory effort Lungs: clear to auscultation and percussion Cardiac Exam: - regular rate & rhythm, no murmurs gallops or rubs - normal S1, normal S2 Pulses: 2(+) throughout Abdomen: Abdomen is tender to palpation in the epigastric area. Musculoskeletal: no gait disturbance, no joint inflammation, no deforming arthritis Extremities: no edema and no cyanosis Neuro: grossly normal exam Results & Data ([facility]) Vital Signs (Past 12 Hours) Vital Signs Temp Pulse Resp BP Pulse Ox O2 Del Method 01/06/22 08:10 36.6 C 65 18 131/83 97 Room Air 01/06/22 04:16 36.6 C 62 18 106/67 96 Room Air 01/06/22 00:22 36.3 C L 60 18 103/70 94 Room Air Laboratory Results Laboratory Results - last 24 hr 01/05/22 01/05/22 01/05/22 11:30 16:46 20:45 POC Glucose 136 H 120 H 80 Triglycerides Cholesterol LDL Cholesterol, Calc VLDL Cholesterol, Calc HDL Cholesterol Cholesterol/HDL Ratio 01/06/22 01/06/22 05:20 07:15 POC Glucose 144 H Triglycerides 228 H Cholesterol 157 LDL Cholesterol, Calc 91 VLDL Cholesterol, Calc 46 H HDL Cholesterol 20 Cholesterol/HDL Ratio 7.9 H Medications Administered Current Inpatient Medications Acetaminophen (Acetaminophen 325 Mg Tab) 650 mg PO Q4H PRN PRN Reason: Pain or Fever Stop: 02/04/22 01:36 Hydrocodone Bitart/Acetaminophen (Hydrocodone/Acetaminophen 10/325 Tab) 1 tab PO Q6H PRN PRN Reason: Severe Pain (Scale Score 7-10) Stop: 01/19/22 01:36 Last Admin: 01/06/22 09:59 Dose: 1 tab Albuterol (Albuterol Hfa 8 Gm Inhaler) 2 puffs INH Q2H PRN PRN Reason: sob/wheeze Stop: 02/04/22 02:50 Last Admin: 01/05/22 03:25 Dose: 2 puffs Aspirin (Aspirin 81 Mg Ectab) 81 mg PO QAM VALERIE Stop: 02/04/22 08:59 Last Admin: 01/06/22 09:27 Dose: 81 mg Atenolol (Atenolol 25 Mg Tablet) 25 mg PO DAILY VALERIE Stop: 02/04/22 08:59 Last Admin: 01/06/22 09:27 Dose: 25 mg Atenolol (Atenolol 25 Mg Tablet) 12.5 mg PO PM PRN PRN Reason: PALPITATIONS Stop: 02/04/22 02:09 Baclofen (Baclofen 10 Mg Tab) 10 mg PO BID PRN PRN Reason: Muscle Spasm Stop: 02/04/22 01:36 Last Admin: 01/05/22 19:46 Dose: 10 mg Dextrose (Dextrose 50% 50 Ml Syringe) 25 - 50 ml IV UD PRN; Protocol PRN Reason: Hypoglycemia Protocol Stop: 02/04/22 01:36 Dicyclomine HCl (Dicyclomine Hcl 10 Mg Cap) 10 mg PO TID VALERIE Stop: 02/04/22 13:59 Last Admin: 01/06/22 09:29 Dose: 10 mg Duloxetine HCl (Duloxetine Hcl 30 Mg Cap) 30 mg PO QAM VALERIE Stop: 02/04/22 08:59 Last Admin: 01/06/22 09:28 Dose: 30 mg Fluticasone Furoate (Fluticasone Furoate 100mcg 14 Puffs/Inhaler) 1 puffs INH DAILY VALERIE Stop: 02/04/22 08:59 Last Admin: 01/06/22 09:31 Dose: 1 puffs Fluticasone Propionate (Fluticasone Propionate Na Spr 16 Gm Btl) 1 sprays NA DAILY VALERIE Stop: 02/04/22 08:59 Last Admin: 01/06/22 09:32 Dose: 1 sprays Glucagon (Glucagon For Inj 1 Mg Vial) 1 mg SQ UD PRN; Protocol PRN Reason: Hypoglycemia Protocol Stop: 02/04/22 01:36 Glucose (Glucose 40% Gel 15 Gm Tube) 15 - 30 gm PO UD PRN; Protocol PRN Reason: Hypoglycemia Protocol Stop: 02/04/22 01:36 Glucose (Glucose 10 Tab/Tube) 4 - 8 tab PO UD PRN; Protocol PRN Reason: Hypoglycemia Treatment Stop: 02/04/22 01:36 Hydroxychloroquine Sulfate (Hydroxychloroquine Sulfate 200 Mg Tab) 400 mg PO QPM VALERIE Stop: 02/04/22 20:59 Last Admin: 01/05/22 21:20 Dose: 400 mg Promethazine HCl 12.5 mg/ (Sodium Chloride) 50.5 mls @ 202 mls/hr IV Q6H PRN PRN Reason: Nausea And Vomiting Stop: 02/04/22 01:36 Insulin Aspart (Insulin Aspart Per Unit) 0 units SC ACHS VALERIE Stop: 02/04/22 07:29 Last Admin: 01/06/22 09:45 Dose: 4 units Insulin Glargine (Lantus Per Unit Charge) 10 units SQ BID VALERIE Stop: 02/04/22 05:34 Last Admin: 01/06/22 09:46 Dose: 10 units Linaclotide (Linaclotide 145 Mcg Capsule) 145 mcg PO DAILY VALERIE Stop: 02/05/22 08:59 Last Admin: 01/06/22 09:28 Dose: 145 mcg Loratadine (Loratadine 10 Mg Tab) 10 mg PO QAM VALERIE Stop: 02/04/22 08:59 Last Admin: 01/06/22 09:28 Dose: 10 mg Lorazepam (Lorazepam 0.5 Mg Tab) 0.5 mg PO BID VALERIE Stop: 02/04/22 01:36 Last Admin: 01/06/22 09:45 Dose: 0.5 mg Lorazepam (Lorazepam 0.5 Mg Tab) 0.5 mg PO TID PRN PRN Reason: Anxiety Stop: 02/04/22 01:36 Miscellaneous (Carbohydrates For Hypoglycemia ) 15 - 30 gm PO UD PRN PRN Reason: Hypoglycemia Protocol Stop: 02/04/22 01:36 Montelukast Sodium (Montelukast Sodium 10 Mg Tablet) 10 mg PO QAM [facility] Stop: 02/04/22 08:59 Last Admin: 01/06/22 09:27 Dose: 10 mg Morphine Sulfate (Morphine Sulfate 4 Mg/Ml 1 Ml Carp\Vial) 4 mg IV Q6H PRN PRN Reason: Pain Stop: 01/19/22 01:36 Multivitamins (Multivitamin Tab) 1 tab PO QAM VALERIE Stop: 02/04/22 08:59 Last Admin: 01/06/22 09:27 Dose: 1 tab Nitroglycerin (Nitroglycerin Sl 0.4 Mg/Tab Tab) 0.4 mg SL UD PRN PRN Reason: Chest Pain Stop: 02/04/22 01:36 Pantoprazole Sodium (Pantoprazole 40 Mg Tab) 40 mg PO BID [facility] Stop: 02/04/22 01:36 Last Admin: 01/06/22 09:34 Dose: 40 mg Polyethylene Glycol (Polyethylene (Miralax) 17 Gm Pack) 17 gm PO DAILY PRN PRN Reason: Constipation Stop: 02/04/22 01:36 Prednisone (Prednisone 5 Mg Tab) 5 mg PO QAM [facility] Stop: 02/04/22 08:59 Last Admin: 01/06/22 09:28 Dose: 5 mg Pregabalin (Pregabalin 75 Mg Cap) 75 mg PO BID [facility] Stop: 02/04/22 01:36 Last Admin: 01/06/22 09:45 Dose: 75 mg Trazodone HCl (Trazodone Hcl 50 Mg Tab) 50 mg PO HS [facility] Stop: 02/04/22 01:36 Last Admin: 01/05/22 21:21 Dose: 50 mg Umeclidinium/Vilanterol (Umeclidinium/Vilanterol 62.5/25mcg 7 Puffs/Inhaler) 1 puffs INH DAILY VALERIE Stop: 02/04/22 08:59 Last Admin: 01/06/22 09:36 Dose: 1 puffs
--- NOTE | 2022-01-06 14:38 | Discharge Summary ---
Date of Service January 06, 2022 Admission HPI Per Admitting Provider This is a 66yo M with a PMH of H. pylori,Type 2 diabetes, tobacco use disorder, narcotic dependence, dyslipidemia, COPD, CAD, hypertension, chronic atrial fibrillation on coumadin, cardiac pacemaker, reactive arthritis, depression, drug-induced constipation and other medical problems as below who presents with left upper abdominal pain x 1 week. Pain has reportedly expanded from left to right side of upper abdomen that is made worse after eating. Describes pain as constant and sharp. Intermittent nausea and decreased appetite 2/2 abdominal distention. Follows with GI for treatment of H. pylori at the beginning of 2021. Then was evaluated by ID who recommended repeat EGD in July 2021, which showed H pylori on biopsy and severe gastritis. Per ID, the risk of using additional antibiotics such as triple regimen outweighs the benefit. He is scheduled for repeat EGD at [facility] on 02/14/22 to obtain repeat biopsies as well as cultures this time. Denies fever, chills, lightheadedness, CP, SOB, dysuria, diarrhea or constipation. Also with recent bronchitis having just completed course of Augmentin and prednisone. Discontinued morphine 1 month ago but still taking hydrocodone-acetaminophen 10mg Q6H PRN. Admission Exam Per Admitting Provider General Appearance:WD/WN, vitals as above, NAD, sitting up in bed, conversing easily Head: normocephalic, atraumatic Eyes:normal inspection, PERRL, conjunctivae normal, anicteric sclerae ENT: external ear and nose normal, oropharynx normal Neck: normal visual inspection, trachea midline, no thyromegaly Respiratory:normal respiratory effort, lungs clear to auscultation, no wheeze, rales, rhonchi. No accessory muscle use Cardiovascular: regular rate, rhythm, no murmur, normal peripheral pulses, no BLE edema. Vessels: no JVD Chest: normal inspection of chest Abdomen/GI: normal bowel sounds, distended but soft, TTP in bandlike distribution across upper abdomen, L>R. No guarding, no hepatosplenomegaly Extremities/Musculoskeletal: no cyanosis or clubbing, extremities motor strength 5/5 Neurologic: PERRL, EOMI, accommodation nl, no face palsy, no dysarthria, CN's II-XI intact bilaterally and moves all extremities Psychiatric:A+Ox3, + anxious Skin: no rashes, normal color, warm/dry Principal Diagnosis Upper abdominal pain likely due to gastritis Elevated high-sensitivity troponin of undetermined significance History of H pylori infection Discharge Exam General Appearance: WD/WN, vitals as above, NAD, sitting up in bed, conversing easily Head: normocephalic, atraumatic Eyes: normal inspection, PERRL, conjunctivae normal, anicteric sclerae ENT: external ear and nose normal, oropharynx normal Neck: normal visual inspection, trachea midline, no thyromegaly Respiratory: normal respiratory effort, lungs clear to auscultation, no wheeze, rales, rhonchi. No accessory muscle use Cardiovascular: regular rate, rhythm, no murmur, normal peripheral pulses, no BLE edema. Vessels: no JVD Chest: normal inspection of chest Abdomen/GI: Soft, mild tenderness present in epigastric region. Extremities/Musculoskeletal: no cyanosis or clubbing, extremities motor strength 5/5 Neurologic: PERRL, EOMI, accommodation nl, no face palsy, no dysarthria, CN's II-XI intact bilaterally and moves all extremities Psychiatric: A+Ox3, + anxious Skin: no rashes, normal color, warm/dry Discharge Data Allergies Allergy/AdvReac Type Severity Reaction Status Date / Time capsaicin Allergy Intermediate RASH WITH Verified 08/09/21 10:26 JOINT SWELLING-CAN TAKE ASPIRIN diclofenac Allergy Intermediate RASH WITH Verified 08/09/21 10:26 JOINT SWELLING-CAN TAKE ASPIRIN Diclopak AdvReac Unknown RASH WITH Verified 03/18/16 16:31 JOINT SWELLING-CAN TAKE ASPIRIN Consultations 01/04/22 20:35 ED Decision to Admit Stat 01/05/22 01:37 Consult Cardiology Routine 01/05/22 10:42 Consult Gastroenterology Routine Ordered Studies 01/04/22 18:16 CT abd pelvis IV con only Stat 01/04/22 20:47 CT head/brain wo con Urgent 01/05/22 15:56 US abdomen [US liver] Routine Hospital Course (1) Abdominal pain: (2) H. pylori infection: (3) PTSD (post-traumatic stress disorder): (4) HTN (hypertension): (5) Anxiety and depression: (6) Peripheral neuropathy: (7) Fibromyalgia: (8) Diabetes mellitus, type 2: (9) Asthma: (10) Narcotic dependence: (11) Tobacco use disorder: Plan This is a 66yo M with a PMH of H. pylori, Type 2 diabetes, tobacco use disorder, narcotic dependence, dyslipidemia, COPD, CAD, hypertension, chronic atrial fibrillation on coumadin, cardiac pacemaker, reactive arthritis, depression, drug-induced constipation and other medical problems as below who presents with left upper abdominal pain x 1 week. On presentation to the ED, patient was afebrile normotensive and saturating well in room air. CT abdomen and pelvis did not show any acute abnormality. His high-sensitivity troponin was elevated to 75 which down trended to 7.9 after 5 hours. He was admitted to telemetry floor for further evaluation and treatment. Cardiology and GI were consulted. Patient underwent echo which showed EF of 55 to 60% with no significant valvular abnormality. Cardiology did not recommend any other further test. GI recommended addition of Pepcid at night along with Linzess. Patient is a scheduled for outpatient endoscopy on February 13. GI recommended evaluation for chronic cholecystitis for which patient had seen Dr. Fulton in 2019. Right upper quadrant ultrasound was done which showed sunken gallbladder without any biliary dilation. Patient reported improvement in his abdomen pain at the time of the discharge. He was given prescription for Bentyl, Pepcid and Linzess. His primary care doctor was contacted to provide referral for outpatient surgical evaluation for possible chronic cholecystitis. Patient was also asked to follow-up with his primary care doctor and GI after discharge. Total Time Total Time Spent Total Time Spent (In Minutes): 35 Total Time Includes: Examination of the Patient, Discharge Planning, Medication Reconciliation, Communication With Other Providers and Other Discharge Plan Discharge Items Patient Disposition: Home - Self-Care Reason For Visit: NSTEMI Discharge Diagnosis: Upper abdominal pain Elevated high-sensitivity troponin of undetermined significance History of H pylori infection Activity: Resume your previous activity Non-emergency contact: Primary Care Provider Call non-emergency contact if: you have any medication questions and your symptoms worsen Follow-up/Referrals: Brigitte Joseph MD [Primary Care Provider] - (Date & Time 01/12/2022 11:20 AM Provider Nata Yan MD Department Family Medicine [facility] ) Russell Mcnair MD [Outside Practitioners] - (Date & Time 01/07/2022 2:20 PM Provider Russell Mcnair MD Department Pulmonary Medicine, [facility] ) Diet: Regular Addtl Attending Provider Instructions: You were admitted to the hospital due to abdominal pain and elevated troponin. Echocardiogram was done which showed ejection fraction of 55 to 60% which is within normal limits. You do not need any further work-up for the elevated troponin as per cardiology. The liver ultrasound showed that your gallbladder was contracted. You will need referral from the PCP for surgical evaluation as outpatient. The following medication are prescribed: 1) Bentyl 10 mg 3 times a day as needed for abdominal pain. 2) Famotidine 20 mg. Please take it at bedtime. 3) Linzess to 90 mcg to be taken once daily. Follow-up with GI for planned endoscopy in January. Pending Studies at Discharge: No Stand-Alone Forms: My [facility] [employer], Smoking Cessation Medications and DC Order Prescriptions: New dicyclomine 10 mg Capsule 10 mg PO TID PRN (Reason: abdominal pain) Qty: 20 0RF famotidine 20 mg tablet 20 mg PO HS Qty: 30 0RF Linzess 290 mcg capsule 290 mcg PO DAILY Qty: 30 0RF Continued potassium chloride 10 mEq Capsule, Extended Release 10 meq PO QAM trazodone 50 mg Tablet 50 mg PO HS nitroglycerin 0.4 mg Tablet, Sublingual 0.4 mg sublingual UD PRN (Reason: CHEST PAIN) insulin glargine [Basaglar KwikPen U-100 Insulin] 100 unit/mL (3 mL) Insulin Pen 1 unit SUBCUT UD Rx Instructions: 20 UNITS IN AM, 10 UNITS IN PM multivitamin Tablet 1 tab PO QAM ipratropium-albuterol 0.5 mg-3 mg(2.5 mg base)/3 mL Solution For Nebulization 3 ml INHALATION Q6 PRN (Reason: Shortness Of Breath Or Wheezing) atenolol 25 mg Tablet 25 mg PO UD Label Comments: WILL REPEAT IN EVENING IF HAVING PALPITATIONS Rx Instructions: Take 25mg QAM and 12.5 as needed qPM for palpitations aspirin [Aspir-81] 81 mg Tablet,Delayed Release (Dr/Ec) 81 mg PO QAM baclofen 10 mg Tablet 10 mg PO BID PRN (Reason: Muscle Spasm) pantoprazole 40 mg Tablet,Delayed Release (Dr/Ec) 40 mg PO BID warfarin 5 mg Tablet 10 mg PO QAM montelukast [Singulair] 10 mg Tablet 10 mg PO QAM furosemide [Lasix] 20 mg Tablet 20 mg PO QAM PRN (Reason: Edema) polyethylene glycol 3350 [Miralax] 17 gram/dose Powder 17 g PO DAILY PRN (Reason: Constipation) albuterol sulfate [Ventolin HFA] 90 mcg/actuation Hfa Aerosol Inhaler 2 puff INHALATION QID PRN (Reason: Shortness Of Breath Or Wheezing) coQ10 (ubiquinol) 200 mg Capsule 200 mg PO QAM calcium carb-mag ox-zinc sulf 333-133-5 mg Tablet 1 tab PO QAM insulin aspart U-100 [Novolog U-100 Insulin aspart] 100 unit/mL Solution 1 sliding scale dose SUBCUT USEASDIRECTD prednisone 10 mg tablet 5 mg PO QAM duloxetine 30 mg capsule,delayed release(DR/EC) 30 mg PO QAM Trelegy Ellipta 100-62.5-25 mcg blister with device 1 inh INHALATION DAILY hydrocodone-acetaminophen 10-325 mg Tablet 1 tab PO Q6H PRN (Reason: Severe Pain (Scale Score 7-10)) lorazepam [Ativan] 0.5 mg Tablet 0.5 mg PO BID hydroxychloroquine [Plaquenil] 200 mg Tablet 400 mg PO QPM fluticasone propionate 50 mcg/actuation [place],Suspension 1 spray INTRANASAL DAILY pregabalin [Lyrica] 75 mg Capsule 75 mg PO BID Claritin 10 mg Tablet,Chewable 10 mg PO QAM Discharge Orders: Discharge Order (Routine); Ordered 01/06/22 Ordered By: Chandler Calhoun/Other Patient Handouts: Managing Type 2 Diabetes, 5 Steps for Eating Healthier, Special Foot Care for Diabetes Admission Data Admit Date/Time: 01/04/22 23:49 Attending Provider: Chandler Henriquez Admit Provider: Dhaval Parikh Primary Care Provider: Brigitte Joseph Other Providers: Dhaval Parikh ; Nicho Bauman ; Cedric Ayoub ; Rosas Varghese ; Eric Lawton ; Edgardo Mohan ; George Kaufman ; Joselin Aguilar ; Meg Tong ; Ivania Alicia ; Rony Garcia ; Jorge Al Other Interventions: Discharge Summary Assessment (RN) Last Done: 01/06/22 13:20
== END 2022-01-06 14:18 | disposition home or self-care (01) | DRG 392 ==
LOC: ED 16:19 → 4W 23:49

== ENCOUNTER 2024-01-08 14:22 | Observation (INO) ==
[2024-01-08 14:53] LABS: Basophils # (auto) 0.07 K/uL (0.00-0.20); Basophils % (auto) 0.8 %; Eosinophils # (auto) 0.14 K/uL (0.00-0.50); Eosinophils % (auto) 1.6 %; Hematocrit (blood only) 43.3 % (42.0-52.0); Hemoglobin 13.7 g/dl (14.0-18.0); Immature Granulocytes # (auto) 0.08 K/uL (0.01-0.20); Immature Granulocytes % (auto) 0.9 %; Lymphocytes # (auto) 1.59 K/uL (1.20-3.40); Lymphocytes % (auto) 18.6 %; Mean Corpuscular Hemoglobin 28.9 pg (25.0-34.0); Mean Corpuscular Hgb Conc 31.6 g/dL (32.0-36.0); Mean Corpuscular Volume 91.4 fL (80.0-100.0); Mean Platelet Volume 9.6 fL (9.4-12.4); Monocytes % (auto) 9.4 %; Neutrophils # (auto) 5.87 K/uL (1.40-6.50); Neutrophils % (auto) 68.7 %; Platelet Count 336 K/uL (130-400); RDW Coefficient of Variation 14.1 % (11.5-14.5); RDW Standard Deviation 47.3 fL (36.4-46.3); Red Blood Count 4.74 M/uL (4.70-6.10); White Blood Count 8.55 K/ul (4.8-10.8)
[2024-01-08 15:08] LABS: Albumin Globulin Ratio 1.7 (0.9-2); Albumin Level 4.4 gm/dl (3.4-5.0); BUN Creatinine Ratio 15.7 (10-20); Bilirubin,Total 0.6 mg/dl (0.2-1.0); Calcium 9.8 mg/dl (8.6-10.3); Creatinine Clr Calc Pharmacy 83.6 ml/min; Globulin 2.6 gm/dl (2.5-4.0); Potassium 5.1 mmol/L (3.5-5.1)
[2024-01-08 15:15] LABS: Troponin I High Sensitivity 5.7 pg/ml (0-20)
[2024-01-08 15:25] LABS: INR 2.7 (0.9-1.1); Partial Thromboplastin Ratio 1.4; Partial Thromboplastin Time 39 Seconds (21-31); Prothrombin Time 27.2 Seconds (9.0-12.0)
--- NOTE | 2024-01-08 15:50 | XRay Report ---
XR chest 1V not portable CLINICAL HISTORY: Chest pain, nonspecific TECHNIQUE: Single frontal radiograph of the chest was obtained. Comparison: Comparison is made to chest radiograph 01/04/2022 FINDINGS: An implanted pacemaker is seen. Aortic valvular prosthesis is seen. Elevation of the left hemidiaphra gm is seen. No evidence of pleural effusion or pneumothorax. IMPRESSION: No acute chest disease. ACT 112: Negative or not required by law. Electronically signed by: Tomer Perez M.D. 01/08/2024 3:49 PM
--- NOTE | 2024-01-08 16:55 | CT Scan Report ---
CT head/brain wo con CLINICAL HISTORY: tavarez Technique: Contiguous axial CT images of the head were acquired from the base of the skull to the kayla jered without intravenous contrast administration. Images were viewed in brain, [facility]. Automated dose lowering techniques and/or adjustment according to patient size were utilized for this exam. Comparison: Comparison is made to CT head 01/04/2022 Findings: The ventricles, basal cisterns, and cerebral sulci are normal. There is no acute intracranial hemorrh age or evidence of acute territorial infarction. Neither mass effect, shift of the midline structures , nor abnormal extra-axial fluid collections are shown. Imaged portions of the paranasal sinuses and mastoid air cells are clear. The orbits appear normal. There are no acute fractures of the calvaria or scalp swelling. Impression: No acute intracranial hemorrhage, no evidence of acute territorial infarction or other acute intracra nial disease process. ACT 112: Negative or not required by law. Electronically signed by: Tomer Perez M.D. 01/08/2024 4:52 PM
--- NOTE | 2024-01-08 17:10 | Emergency Department Note ---
History of Present Illness General Chief Complaint: Cardiac Assessment Stated Complaint: LUMP IN CHEST, PAIN IN BACK, HIGH PULSE Time Seen by Provider: 01/08/24 15:53 History of Present Illness Provider Complaint: chest pain Onset (ago): day(s) 3 Duration: intermittent Onset: during exertion Pain Location: substernal Pain Radiation: none Severity: moderate Maximum Pain Intensity: 4 Current Pain Intensity: 4 Quality: + aching, + heaviness and + dull Relieved By: + rest Exacerbated By: + exertion Context: no recent illness, no recent surgery, no recent immobilization, no recent travel, no trauma/injury or no new medications Associated symptoms: + dyspnea and + palpitations; no nausea, no syncope, no fever, no cough or no leg swelling Patient also reports excessive fatigue and sleeping for more than 24 hours. Home Medications Medication Instructions Recorded Confirmed Type albuterol sulfate 90 mcg/actuation 2 puff inhalation QID PRN 01/16/19 01/04/22 History aerosol inhaler (Ventolin HFA) Shortness Of Breath Or Wheezing aspirin 81 mg tablet,delayed 81 mg PO QAM 01/16/19 01/04/22 History release (Aspir-) atenolol 25 mg tablet 25 mg PO UD 01/16/19 01/04/22 History baclofen 10 mg tablet 10 mg PO BID PRN Muscle Spasm 01/16/19 01/04/22 History calcium 333 mg 1 tab PO QAM 01/16/19 01/04/22 History (carbonate)-magnesium 133 mg-zinc 5 mg (sulfate) tablet coQ10 (ubiquinol) 200 mg capsule 200 mg PO QAM 01/16/19 01/04/22 History furosemide 20 mg tablet (Lasix) 20 mg PO QAM PRN Edema 01/16/19 01/04/22 History ipratropium 0.5 mg-albuterol 3 mg 3 ml inhalation Q6 PRN Shortness 01/16/19 01/04/22 History (2.5 mg base)/3 mL nebulization Of Breath Or Wheezing soln montelukast 10 mg tablet 10 mg PO QAM 01/16/19 01/04/22 History (Singulair) multivitamin 1 tab PO QAM 01/16/19 01/04/22 History pantoprazole 40 mg tablet,delayed 40 mg PO BID 01/16/19 01/04/22 History release polyethylene glycol 3350 17 17 g PO DAILY PRN Constipation 01/16/19 01/04/22 History gram/dose oral powder (Miralax) warfarin 5 mg tablet 10 mg PO QAM 01/16/19 01/04/22 History insulin glargine 100 unit/mL (3 1 unit subcut UD 01/22/19 01/04/22 History mL) subcutaneous pen (Basaglar KwikPen U-100 Insulin) nitroglycerin 0.4 mg sublingual 0.4 mg sublingual UD PRN CHEST PAIN 01/22/19 01/04/22 History tablet potassium chloride 10 mEq 10 meq PO QAM 01/22/19 01/04/22 History capsule,extended release trazodone 50 mg tablet 50 mg PO HS 01/22/19 01/04/22 History duloxetine 30 mg capsule,delayed 30 mg PO QAM 03/16/19 01/04/22 History release prednisone 10 mg tablet 5 mg PO QAM 03/16/19 01/04/22 History insulin aspart U-100 100 unit/mL 1 sliding scale dose subcut 03/22/19 01/04/22 History subcutaneous solution (Novolog USEASDIRECTD U-100 Insulin aspart) fluticasone propionate 50 1 spray intranasal DAILY 08/09/21 01/04/22 History mcg/actuation nasal spray,suspension hydrocodone 10 mg-acetaminophen 1 tab PO Q6H PRN Severe Pain 08/09/21 01/04/22 History 325 mg tablet (Scale Score 7-10) hydroxychloroquine 200 mg tablet 400 mg PO QPM 08/09/21 01/04/22 History (Plaquenil) loratadine 10 mg chewable tablet 10 mg PO QAM 08/09/21 01/04/22 History (Claritin) lorazepam 0.5 mg tablet (Ativan) 0.5 mg PO BID 08/09/21 01/04/22 History pregabalin 75 mg capsule (Lyrica) 75 mg PO BID 08/09/21 01/04/22 History fluticasone fur. 100 mcg-umeclid 1 inh inhalation DAILY 01/04/22 01/04/22 History 62.5 mcg-vilant 25 mcg inhalat.powder (Trelegy Ellipta) dicyclomine 10 mg capsule 10 mg PO TID PRN abdominal pain 01/06/22 Rx #20 caps famotidine 20 mg tablet 20 mg PO HS #30 tabs 01/06/22 Rx linaclotide 290 mcg capsule 290 mcg PO DAILY #30 caps 01/06/22 Rx (Linzess) Allergies Allergy/AdvReac Type Severity Reaction Status Date / Time capsaicin Allergy Intermediate RASH WITH Verified 08/09/21 10:26 JOINT SWELLING-CAN TAKE ASPIRIN diclofenac Allergy Intermediate RASH WITH Verified 08/09/21 10:26 JOINT SWELLING-CAN TAKE ASPIRIN Diclopak AdvReac Unknown RASH WITH Verified 03/18/16 16:31 JOINT SWELLING-CAN TAKE ASPIRIN Past Med/Surg History Problem List (Updated 01/08/24 @ 17:10 by Raymundo Larson MD) Abdominal pain Tobacco use disorder Narcotic dependence Peripheral neuropathy Fibromyalgia Diabetes mellitus, type 2 Asthma LAST USED RESCUE INHALER>YESTERDAY Anxiety and depression Colon polyp H. 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 SOB WITH EXERTION ? RELATED TO COVID History of Helicobacter pylori infection History of pacemaker OCTOBER 2018 - [facility] Hx of myocardial infarction X6; 5 FROM [id number] AND 1 IN 2004 Post traumatic stress disorder Spinal stenosis Osteoarthritis BPH (benign prostatic hyperplasia) Ulcerative colitis GERD (gastroesophageal reflux disease) Restless leg syndrome Migraine History of cardioversion MAY 2018 Atrial fibrillation REASON FOR COUMADIN Hyperlipidemia PTSD (post-traumatic stress disorder) HTN (hypertension) Surgical History History of ERCP GALL STONES History of permanent cardiac pacemaker placement OCTOBER 2018>MONITORED BY [facility]/DR. HALL Hx of cardiac catheterization TOTAL 8 STENTS - LAST CATH AUGUST 2018 [facility] History of Achilles tendon repair LEFT Family history of reaction to anesthesia DAUGHTER-SLOW TO WAKE UP Hx of transurethral resection of prostate History of esophagogastroduodenoscopy (EGD) History of colonoscopy History of appendectomy History of tooth extraction Hx of metal removed from eye History of heart artery stent 8 TOTAL STENTS (LAST ONE PLACED AUGUST 2018 AT [facility] IN [place]) Stented coronary artery "stent x 7 from [id number]" Family History Grandfather (Paternal) Family history of diabetes mellitus Grandfather (Maternal) Family hx of colon cancer Social History Smoking Status: Current every day smoker Cigarettes Per Day: 10-20; Second Hand Exposure: Yes (IN THE PAST); Do You Dip or Chew Tobacco: No; Hx Alcohol Use: No Hx Substance Use: No Preferred Language: Singaporean Communication Ability: Effective Demand Generation Manager Required: No Beliefs That Will Affect Care: None Current Living Situation: Family Current Living Situation Comment: WITH DAUGHTER /HAS AN APARTMENT IN HER HOUSE Feels Safe at Home: Yes Assistive Devices: Cane Physical Exam Vital Signs Vital Signs - 24 hr 01/08/24 14:26 01/08/24 14:26 01/08/24 15:38 Temperature 36.1 C L Temperature Source Temporal Artery Scan Pulse Rate 109 H Pulse Rate from SpO2 Sensor Pulse Rhythm Respiratory Rate 18 Respiratory Effort / Characteristics Short of Breath Non-Labored Spontaneous Respiratory Depth Normal Respiratory Pattern Regular Blood Pressure 137/92 Blood Pressure Mean 107 Pulse Oximetry 98 Oxygen Delivery Method Room Air Room Air Sepsis Recent Fever Within 48 Hours No Sepsis New/Unexplained Change in Mental Status N/A Sepsis Action Taken by Nursing No Action Required 01/08/24 15:38 01/08/24 15:40 01/08/24 15:40 Temperature Temperature Source Pulse Rate 89 Pulse Rate from SpO2 Sensor Pulse Rhythm Regular Respiratory Rate 20 Respiratory Effort / Characteristics Respiratory Depth Respiratory Pattern Blood Pressure 120/83 120/83 Blood Pressure Mean 88 88 Pulse Oximetry 97 Oxygen Delivery Method Room Air Sepsis Recent Fever Within 48 Hours Sepsis New/Unexplained Change in Mental Status Sepsis Action Taken by Nursing 01/08/24 15:42 01/08/24 16:00 01/08/24 16:00 Temperature Temperature Source Pulse Rate 73 73 Pulse Rate from SpO2 Sensor 73 72 Pulse Rhythm Respiratory Rate 20 15 Respiratory Effort / Characteristics Respiratory Depth Respiratory Pattern Blood Pressure 113/83 Blood Pressure Mean 89 Pulse Oximetry 97 94 Oxygen Delivery Method Sepsis Recent Fever Within 48 Hours Sepsis New/Unexplained Change in Mental Status Sepsis Action Taken by Nursing 01/08/24 16:00 01/08/24 16:00 01/08/24 16:00 Temperature Temperature Source Pulse Rate Pulse Rate from SpO2 Sensor Pulse Rhythm Respiratory Rate Respiratory Effort / Characteristics Respiratory Depth Respiratory Pattern Blood Pressure 113/83 113/83 113/83 Blood Pressure Mean 89 89 89 Pulse Oximetry Oxygen Delivery Method Sepsis Recent Fever Within 48 Hours Sepsis New/Unexplained Change in Mental Status Sepsis Action Taken by Nursing 01/08/24 16:05 01/08/24 16:12 01/08/24 16:30 Temperature Temperature Source Pulse Rate 73 72 Pulse Rate from SpO2 Sensor 72 Pulse Rhythm Respiratory Rate 20 Respiratory Effort / Characteristics Respiratory Depth Respiratory Pattern Blood Pressure 113/82 Blood Pressure Mean 89 Pulse Oximetry 95 Oxygen Delivery Method Sepsis Recent Fever Within 48 Hours Sepsis New/Unexplained Change in Mental Status Sepsis Action Taken by Nursing 01/08/24 16:45 Temperature Temperature Source Pulse Rate 71 Pulse Rate from SpO2 Sensor 71 Pulse Rhythm Respiratory Rate 19 Respiratory Effort / Characteristics Respiratory Depth Respiratory Pattern Blood Pressure Blood Pressure Mean Pulse Oximetry 95 Oxygen Delivery Method Sepsis Recent Fever Within 48 Hours Sepsis New/Unexplained Change in Mental Status Sepsis Action Taken by Nursing Physical Exam GENERAL: oriented to person, place, and time. appears well-developed and well- nourished. HENT: Exam performed. - Head: Normocephalic and atraumatic. EYES: Conjunctivae and EOM are normal. Right eye exhibits no discharge. Left eye exhibits no discharge. No scleral icterus. NECK: Normal range of motion. Neck supple. No JVD present. CV: Normal rate, regular rhythm, normal heart sounds and intact distal pulses. There is no peripheral edema. Palpable radial pulses bue. PULM/CHEST: Effort normal and breath sounds normal. No respiratory distress. No stridor. no wheezes. no rales. ABD: The abdomen is soft. There is no tenderness on palpation of the abdomen. NEURO: Motor and sensation grossly intact. SKIN: Skin is warm and dry. He is not diaphoretic. PSYCH: normal mood and affect. Behavior is normal. Judgment and thought content normal. Course Course 1553: The patient was evaluated in room C4. A complete history and physical exam was performed Cardiac monitoring: An order was placed for continuous cardiac monitoring. The monitor shows a rate of 80 with sinus rhythm interpreted by me 1708: Vital signs stable. Patient reports no chest pain or difficulty breathing at this time. Labs and imaging unremarkable. Patient will be admitted to the [facility] team for chest pain rule out ACS. Medical Decision Making Laboratory Data Attestation: I reviewed the patient's lab results. 01/08/24 14:40 01/08/24 14:40 Labs: Lab Results 01/08/24 Range/Units 14:40 WBC 8.55 (4.8-10.8) K/ul RBC 4.74 (4.70-6.10) M/uL Hgb 13.7 L (14.0-18.0) g/dl Hct 43.3 (42.0-52.0) % MCV 91.4 (80.0-100.0) fL MCH 28.9 (25.0-34.0) pg MCHC 31.6 L (32.0-36.0) g/dL RDW Std Deviation 47.3 H (36.4-46.3) fL RDW Coeff of Pedro 14.1 (11.5-14.5) % Plt Count 336 (130-400) K/uL MPV 9.6 (9.4-12.4) fL Immature Gran % (Auto) 0.9 % Neut % (Auto) 68.7 % Lymph % (Auto) 18.6 % Nobles % (Auto) 9.4 % Eos % (Auto) 1.6 % Baso % (Auto) 0.8 % Neut # (Auto) 5.87 (1.40-6.50) K/uL Lymph # (Auto) 1.59 (1.20-3.40) K/uL Nobles # (Auto) 0.80 H (0.11-0.59) K/uL Eos # (Auto) 0.14 (0.00-0.50) K/uL Baso # (Auto) 0.07 (0.00-0.20) K/uL Immature Gran # (Auto) 0.08 (0.01-0.20) K/uL PT 27.2 H (9.0-12.0) Seconds INR 2.7 H (0.9-1.1) APTT 39 H (21-31) Seconds PTT Ratio 1.4 Sodium 135 L (136-145) mmol/L Potassium 5.1 (3.5-5.1) mmol/L Chloride 100 (98-107) mmol/L Carbon Dioxide 32 (21-32) mmol/L Anion Gap 3 (3-11) BUN 16 (6-23) mg/dl Creatinine 1.02 (0.6-1.4) mg/dl Est Cr Clr Drug Dosing 83.6 ml/min eGFR 80.55 BUN/Creatinine Ratio 15.7 (10-20) Glucose 202 H (70-99(Fasting)) mg/dl Calcium 9.8 (8.6-10.3) mg/dl Total Bilirubin 0.6 (0.2-1.0) mg/dl AST 22 (13-39) U/L ALT 39 (7-52) U/L Alkaline Phosphatase 48 (34-104) U/L Troponin I High Sens 5.7 (0-20) pg/ml Total Protein 7.0 (6.0-8.3) gm/dl Albumin 4.4 (3.4-5.0) gm/dl Globulin 2.6 (2.5-4.0) gm/dl Albumin/Globulin Ratio 1.7 (0.9-2) Imaging Data Chest x-ray: Radiologist's impression: XR chest 1V not portable CLINICAL HISTORY: Chest pain, nonspecific TECHNIQUE: Single frontal radiograph of the chest was obtained. Comparison: Comparison is made to chest radiograph 01/04/2022 FINDINGS: An implanted pacemaker is seen. Aortic valvular prosthesis is seen. Elevation of the left hemidiaphragm is seen. No evidence of pleural effusion or pneumothorax. IMPRESSION: No acute chest disease. ACT 112: Negative or not required by law. Electronically signed by: Tomer Perez M.D. 01/08/2024 3:49 PM Dictated: 01/08/24 1548 Transcribed: 01/08/[address] scan - head: Radiologist's impression: CT head/brain wo con CLINICAL HISTORY: tavarez Technique: Contiguous axial CT images of the head were acquired from the base of the skull to the vertex without intravenous contrast administration. Images were viewed in brain, subdural and bone windows. Automated dose lowering techniques and/or adjustment according to patient size were utilized for this exam. Comparison: Comparison is made to CT head 01/04/2022 Findings: The ventricles, basal cisterns, and cerebral sulci are normal. There is no acute intracranial hemorrhage or evidence of acute territorial infarction. Neither mass effect, shift of the midline structures, nor abnormal extra-axial fluid collections are shown. Imaged portions of the paranasal sinuses and mastoid air cells are clear. The orbits appear normal. There are no acute fractures of the calvaria or scalp swelling. Impression: No acute intracranial hemorrhage, no evidence of acute territorial infarction or other acute intracranial disease process. ACT 112: Negative or not required by law. Electronically signed by: Tomer Perez M.D. 01/08/2024 4:52 PM Dictated: 01/08/241648 Transcribed: 01/08/241648 ECG Data Attestation: I personally reviewed and interpreted this ECG as follows: Rate (beats per minute): 77 Rhythm: normal sinus Findings: no ST depression, no ST elevation or no prolonged QT MDM Narrative 1553: The patient was evaluated in room C4. A complete history and physical exam was performed Cardiac monitoring: An order was placed for continuous cardiac monitoring. The monitor shows a rate of 80 with sinus rhythm interpreted by me 1708: Vital signs stable. Patient reports no chest pain or difficulty breathing at this time. Labs and imaging unremarkable. Patient will be admitted to the [place] hospitalist team for chest pain rule out ACS. Impression & Plan Chest pain Discharge Plan Visit Data Chief Complaint: Cardiac Assessment Stated Complaint: LUMP IN CHEST, PAIN IN BACK, HIGH PULSE ED Provider: Raymundo Larson Discharge Problem: Chest pain Patient Disposition: Being Evaluated by Hospitalist Forms Stand Alone Forms: My [facility] Prescriptions Prescriptions: No Action potassium chloride 10 mEq Capsule, Extended Release 10 meq PO QAM trazodone 50 mg Tablet 50 mg PO HS nitroglycerin 0.4 mg Tablet, Sublingual 0.4 mg sublingual UD PRN (Reason: CHEST PAIN) insulin glargine [Basaglar KwikPen U-100 Insulin] 100 unit/mL (3 mL) Insulin Pen 1 unit SUBCUT UD Rx Instructions: 20 UNITS IN AM, 10 UNITS IN PM multivitamin Tablet 1 tab PO QAM ipratropium-albuterol 0.5 mg-3 mg(2.5 mg base)/3 mL Solution For Nebulization 3 ml INHALATION Q6 PRN (Reason: Shortness Of Breath Or Wheezing) atenolol 25 mg Tablet 25 mg PO UD Patient Comments: WILL REPEAT IN EVENING IF HAVING PALPITATIONS Rx Instructions: Take 25mg QAM and 12.5 as needed qPM for palpitations aspirin [Aspir-81] 81 mg Tablet,Delayed Release (Dr/Ec) 81 mg PO QAM baclofen 10 mg Tablet 10 mg PO BID PRN (Reason: Muscle Spasm) pantoprazole 40 mg Tablet,Delayed Release (Dr/Ec) 40 mg PO BID warfarin 5 mg Tablet 10 mg PO QAM montelukast [Singulair] 10 mg Tablet 10 mg PO QAM furosemide [Lasix] 20 mg Tablet 20 mg PO QAM PRN (Reason: Edema) polyethylene glycol 3350 [Miralax] 17 gram/dose Powder 17 g PO DAILY PRN (Reason: Constipation) albuterol sulfate [Ventolin HFA] 90 mcg/actuation Hfa Aerosol Inhaler 2 puff INHALATION QID PRN (Reason: Shortness Of Breath Or Wheezing) coQ10 (ubiquinol) 200 mg Capsule 200 mg PO QAM calcium carb-mag ox-zinc sulf 333-133-5 mg Tablet 1 tab PO QAM insulin aspart U-100 [Novolog U-100 Insulin aspart] 100 unit/mL Solution 1 sliding scale dose SUBCUT USEASDIRECTD prednisone 10 mg tablet 5 mg PO QAM duloxetine 30 mg capsule,delayed release(DR/EC) 30 mg PO QAM Trelegy Ellipta 100-62.5-25 mcg blister with device 1 inh INHALATION DAILY dicyclomine 10 mg Capsule 10 mg PO TID PRN (Reason: abdominal pain) Qty: 20 0RF famotidine 20 mg tablet 20 mg PO HS Qty: 30 0RF Linzess 290 mcg capsule 290 mcg PO DAILY Qty: 30 0RF hydrocodone-acetaminophen 10-325 mg Tablet 1 tab PO Q6H PRN (Reason: Severe Pain (Scale Score 7-10)) lorazepam [Ativan] 0.5 mg Tablet 0.5 mg PO BID hydroxychloroquine [Plaquenil] 200 mg Tablet 400 mg PO QPM fluticasone propionate 50 mcg/actuation [place],Suspension 1 spray INTRANASAL DAILY pregabalin [Lyrica] 75 mg Capsule 75 mg PO BID Claritin 10 mg Tablet,Chewable 10 mg PO QAM Referrals Referrals: Brigitte Joseph MD [Primary Care Provider] - Discharge Problem: Chest pain Qualifiers: Chest pain type: unspecified Qualified Code(s): R07.9 - Chest pain, unspecified
[2024-01-08] MEDS ORDERED: POLYETHYLENE (MIRALAX) 17 GM PACK PO PRN (18:47)
--- NOTE | 2024-01-08 19:11 | History & Physical Report ---
Date of Service January 08, 2024 Assessment & Plan (1) Chest pain: Plan: Hx of CAD s/p multiple stents, most recently reports procedure in [facility] in 05/2023 w/ 3 stents placed Follows w/ cardiology group in [place] - will need to obtain records Presents due to chest pressure and back pain - that he feels is similar to his previous MIs In the ED - ECG, troponin obtained - negat. Pt currently appears comfortable, without any significant pain. Admit to telemetry Will obtain Echo Repeat troponins For now, cont. home cardiac meds (Patient reports taking aspirin, Plavix, atenolol, Imdur, however he is not sure what dose of Imdur he is taking.) Consult cardiology Hx of Afib, hx of PPM - cont. home atenolol, warfarin - monitor INR Fever -reports having fever about a week ago, weakness, and some cough - tested himself at home for Covid and reports having negative result - CXR in the ED unremarkable - obtain biofire - obtain procalcitonin - obtain blood cultx - obtain UA (2) Diabetes mellitus, type 2: Plan: - Hgb A1c 6.5% in 09/2023 (good control) - at home on glargine 20 AM, 10 PM and novolog - cont insulin, SSI - monitor BSG (3) COPD (chronic obstructive pulmonary disease): Plan: - cont. home inhalers - currently not in exacerbation Current smoker - counseling provided - declines nicotine patch CODE: Full (discussed w/ the pt) History of Present Illness Chief Complaint: Chest pain, weakness Primary Care Provider: Brigitte Joseph MD Pt is a 68 yo M w/ hx of CAD, tachybrady syndrome s/p PPM, hx of Afib, asthma, COPD, current smoker, DM type 2 on insulin who presents with chest pain, and weakness. As per his cardiac hx - pt reports to be s/p multiple stents - reports since 1996 had 11 stents placed and most recently had 3 stents in right circumflex in May of 2023 in [facility] where he had to be transferred for the procedure. Pt says he follows with Cardiology group in [place], says he was be ing seen by Dr. Christi Merritt and that she however left the group. Pr report no new medications recently. Says that on Monday he had a flat tire, which he changed, and felt very tired.He laid down, and he remembers waking up on Monday. When he woke up he felt very weak and could not get up from bed and so he called his daughter. He reports having temperature of 102 F And because of his weakness, And some cough, he thought he may have had COVID. He tested himself at home however, and was found negative.He denies having any more fevers after that. He has been feeling dizzy and weak for several months. Now he reports having chest pressure, and pain by his back, that feels like his previous heart attacks. Reports having significant cardiac history, several previous heart attacks, mul tiple stent placements.Reports he follows with cardiology group in [place], and that he had most recently(in May 2023) placed 3 stents at [facility] where he needed to be transferred for the procedure. Currently patient is lying in bed, comfortable, without any significant chest pain.Chest x-ray, CT head, ECG, troponin obtained in the ED.Workup in ED so far unremarkable. Allergies Allergy/AdvReac Type Severity Reaction Status Date / Time capsaicin Allergy Intermediate RASH WITH Verified 08/09/21 10:26 JOINT SWELLING-CAN TAKE ASPIRIN diclofenac Allergy Intermediate RASH WITH Verified 08/09/21 10:26 JOINT SWELLING-CAN TAKE ASPIRIN Diclopak AdvReac Unknown RASH WITH Verified 03/18/16 16:31 JOINT SWELLING-CAN TAKE ASPIRIN Home Medications Medication Instructions Recorded Confirmed Type albuterol sulfate 90 mcg/actuation 2 puff inhalation QID PRN 01/16/19 01/04/22 History aerosol inhaler (Ventolin HFA) Shortness Of Breath Or Wheezing aspirin 81 mg tablet,delayed 81 mg PO QAM 01/16/19 01/04/22 History release (Aspir-) atenolol 25 mg tablet 25 mg PO UD 01/16/19 01/04/22 History baclofen 10 mg tablet 10 mg PO BID PRN Muscle Spasm 01/16/19 01/04/22 History calcium 333 mg 1 tab PO QAM 01/16/19 01/04/22 History (carbonate)-magnesium 133 mg-zinc 5 mg (sulfate) tablet coQ10 (ubiquinol) 200 mg capsule 200 mg PO QAM 01/16/19 01/04/22 History furosemide 20 mg tablet (Lasix) 20 mg PO QAM PRN Edema 01/16/19 01/04/22 History ipratropium 0.5 mg-albuterol 3 mg 3 ml inhalation Q6 PRN Shortness 01/16/19 01/04/22 History (2.5 mg base)/3 mL nebulization Of Breath Or Wheezing soln montelukast 10 mg tablet 10 mg PO QAM 01/16/19 01/04/22 History (Singulair) multivitamin 1 tab PO QAM 01/16/19 01/04/22 History pantoprazole 40 mg tablet,delayed 40 mg PO BID 01/16/19 01/04/22 History release polyethylene glycol 3350 17 17 g PO DAILY PRN Constipation 01/16/19 01/04/22 History gram/dose oral powder (Miralax) warfarin 5 mg tablet 10 mg PO QAM 01/16/19 01/04/22 History insulin glargine 100 unit/mL (3 1 unit subcut UD 01/22/19 01/04/22 History mL) subcutaneous pen (Basaglar KwikPen U-100 Insulin) nitroglycerin 0.4 mg sublingual 0.4 mg sublingual UD PRN CHEST PAIN 01/22/19 01/04/22 History tablet potassium chloride 10 mEq 10 meq PO QAM 01/22/19 01/04/22 History capsule,extended release trazodone 50 mg tablet 50 mg PO HS 01/22/19 01/04/22 History duloxetine 30 mg capsule,delayed 30 mg PO QAM 03/16/19 01/04/22 History release prednisone 10 mg tablet 5 mg PO QAM 03/16/19 01/04/22 History insulin aspart U-100 100 unit/mL 1 sliding scale dose subcut 03/22/19 01/04/22 History subcutaneous solution (Novolog USEASDIRECTD U-100 Insulin aspart) fluticasone propionate 50 1 spray intranasal DAILY 08/09/21 01/04/22 History mcg/actuation nasal spray,suspension hydrocodone 10 mg-acetaminophen 1 tab PO Q6H PRN Severe Pain 08/09/21 01/04/22 History 325 mg tablet (Scale Score 7-10) hydroxychloroquine 200 mg tablet 400 mg PO QPM 08/09/21 01/04/22 History (Plaquenil) loratadine 10 mg chewable tablet 10 mg PO QAM 08/09/21 01/04/22 History (Claritin) lorazepam 0.5 mg tablet (Ativan) 0.5 mg PO BID 08/09/21 01/04/22 History pregabalin 75 mg capsule (Lyrica) 75 mg PO BID 08/09/21 01/04/22 History fluticasone fur. 100 mcg-umeclid 1 inh inhalation DAILY 01/04/22 01/04/22 History 62.5 mcg-vilant 25 mcg inhalat.powder (Trelegy Ellipta) dicyclomine 10 mg capsule 10 mg PO TID PRN abdominal pain 01/06/22 Rx #20 caps famotidine 20 mg tablet 20 mg PO HS #30 tabs 01/06/22 Rx linaclotide 290 mcg capsule 290 mcg PO DAILY #30 caps 01/06/22 Rx (Linzess) clopidogrel 75 mg tablet mg 01/08/24 01/08/24 History evolocumab 140 mg/mL subcutaneous mg subcut 01/08/24 01/08/24 History pen injector (Repatha SureClick) insulin glargine 100 unit/mL (3 unit subcut 01/08/24 01/08/24 History mL) subcutaneous pen (Lantus Solostar U-100 Insulin) isosorbide mononitrate 30 mg mg PO 01/08/24 01/08/24 History tablet,extended release 24 hr loratadine 10 mg tablet mg 01/08/24 01/08/24 History metoprolol succinate 50 mg mg PO 01/08/24 01/08/24 History tablet,extended release 24 hr sulfasalazine 500 mg tablet 01/08/24 01/08/24 History Past Med/Surg History Problem List (Updated 01/08/24 @ 18:58 by González Shirley MD) Chest pain Abdominal pain Tobacco use disorder Narcotic dependence Peripheral neuropathy Fibromyalgia Diabetes mellitus, type 2 Asthma LAST USED RESCUE INHALER>YESTERDAY Anxiety and depression Colon polyp H. pylori infection Depression, recurrent (Chronic) Personality disorder (Chronic) "With narcissistic, borderline, and avoidant traits" Chest pain (Acute) Abdominal pain, RUQ (Acute) Pancreatic mass (Acute) Current use of half-way anticoagulation (Acute) Black stool Encounter for pre-operative examination Pancreatic mass Encounter for pre-operative examination Paralysis of diaphragm (Chronic Unknown) LEFT DIAPHRAGM (UNKNOWN REASON) Insomnia (Chronic) COPD exacerbation Medical History (Updated 01/08/24 @ 18:58 by González Shirley MD) COPD (chronic obstructive pulmonary disease) Elevated troponin Weakness Abdominal pain, epigastric History of COVID-19 03/2021>BODY ACHES/FEVER *CONT. SOB WITH EXERTION ? RELATED TO COVID History of Helicobacter pylori infection History of pacemaker OCTOBER 2018 - [facility] Hx of myocardial infarction X6; 5 FROM [id number] AND 1 IN 2004 Post traumatic stress disorder Spinal stenosis Osteoarthritis BPH (benign prostatic hyperplasia) Ulcerative colitis GERD (gastroesophageal reflux disease) Restless leg syndrome Migraine History of cardioversion MAY 2018 Atrial fibrillation REASON FOR COUMADIN Hyperlipidemia PTSD (post-traumatic stress disorder) HTN (hypertension) Surgical History History of ERCP GALL STONES History of permanent cardiac pacemaker placement OCTOBER 2018>MONITORED BY [facility]/DR. HALL Hx of cardiac catheterization TOTAL 8 STENTS - LAST CATH AUGUST 2018 [facility] History of Achilles tendon repair LEFT Family history of reaction to anesthesia DAUGHTER-SLOW TO WAKE UP Hx of transurethral resection of prostate History of esophagogastroduodenoscopy (EGD) History of colonoscopy History of appendectomy History of tooth extraction Hx of metal removed from eye History of heart artery stent 8 TOTAL STENTS (LAST ONE PLACED AUGUST 2018 AT [facility] IN [place]) Stented coronary artery "stent x 7 from [id number]" Family History Grandfather (Paternal) Family history of diabetes mellitus Grandfather (Maternal) Family hx of colon cancer Social History Smoking Status: Current every day smoker Tobacco Type: Cigarettes Cigarettes Per Day: 5-10; Second Hand Exposure: Yes (IN THE PAST); Do You Dip or Chew Tobacco: No; Hx Alcohol Use: No Hx Substance Use: No Preferred Language: American Communication Ability: Effective Interventionist Required: No Beliefs That Will Affect Care: None Current Living Situation: Family Current Living Situation Comment: lives with daughter Harika and family Feels Safe at Home: Yes Safety Concerns: Feels Safe At This Time Assistive Devices: Cane Review of Systems Review of Systems: All systems reviewed & are unremarkable except as noted in Subjective Physical Exam Constitutional: WD/WN, vitals as above Eyes: PERRL, conjunctivae normal, anicteric sclerae ENMT: external ear and nose normal, oropharynx normal Neck: supple Respiratory: Auscultation: + rhonchi (minimal rhonchi on the right ) and + wheezes (minimal exp. wheezes) Cardiovascular: RRR, no murmur, no edema Gastrointestinal (Abdomen): normal bowel sounds, soft, nontender, no hepatosplenomegaly Musculoskeletal: Head/Neck/Chest: normocephalic, head atraumatic and neck supple Extremities: extremities normal to inspection Skin: no rashes, warm and dry Neurologic: PERRL, EOMI, accommodation nl, no face palsy, no dysarthria Psychiatric: A+Ox3, euthymic affect Lymphatic: no lymphedema Results & Data Results & Data Vital Signs (Past 12 Hours) Vital Signs Temp Pulse Resp BP Pulse Ox O2 Del Method 01/08/24 16:45 71 19 95 01/08/24 16:30 113/82 01/08/24 16:12 72 20 95 01/08/24 16:05 73 01/08/24 16:00 01/08/24 16:00 01/08/24 16:00 11301/08/24 16:00 11301/08/24 16:00 73 15 94 01/08/24 15:42 73 20 97 01/08/24 15:40 120/83 01/08/24 15:40 12001/08/24 15:38 89 20 97 Room Air 01/08/24 15:38 Room Air 01/08/24 14:26 36.1 C L 109 H 18 137/92 98 Room Air Laboratory Results 01/08/24 Range/Units 14:40 WBC 8.55 (4.8-10.8) K/ul RBC 4.74 (4.70-6.10) M/uL Hgb 13.7 L (14.0-18.0) g/dl Hct 43.3 (42.0-52.0) % MCV 91.4 (80.0-100.0) fL MCH 28.9 (25.0-34.0) pg MCHC 31.6 L (32.0-36.0) g/dL RDW Std Deviation 47.3 H (36.4-46.3) fL RDW Coeff of Pedro 14.1 (11.5-14.5) % Plt Count 336 (130-400) K/uL MPV 9.6 (9.4-12.4) fL Immature Gran % (Auto) 0.9 % Neut % (Auto) 68.7 % Lymph % (Auto) 18.6 % [place] % (Auto) 9.4 % Eos % (Auto) 1.6 % Baso % (Auto) 0.8 % Neut # (Auto) 5.87 (1.40-6.50) K/uL Lymph # (Auto) 1.59 (1.20-3.40) K/uL [place]leigh # (Auto) 0.80 H (0.11-0.59) K/uL Eos # (Auto) 0.14 (0.00-0.50) K/uL Baso # (Auto) 0.07 (0.00-0.20) K/uL Immature Gran # (Auto) 0.08 (0.01-0.20) K/uL PT 27.2 H (9.0-12.0) Seconds INR 2.7 H (0.9-1.1) APTT 39 H (21-31) Seconds PTT Ratio 1.4 Sodium 135 L (136-145) mmol/L Potassium 5.1 (3.5-5.1) mmol/L Chloride 100 (98-107) mmol/L Carbon Dioxide 32 (21-32) mmol/L Anion Gap 3 (3-11) BUN 16 (6-23) mg/dl Creatinine 1.02 (0.6-1.4) mg/dl Est Cr Clr Drug Dosing 83.6 ml/min eGFR 80.55 BUN/Creatinine Ratio 15.7 (10-20) Glucose 202 H (70-99(Fasting)) mg/dl Calcium 9.8 (8.6-10.3) mg/dl Total Bilirubin 0.6 (0.2-1.0) mg/dl AST 22 (13-39) U/L ALT 39 (7-52) U/L Alkaline Phosphatase 48 (34-104) U/L Troponin I High Sens 5.7 (0-20) pg/ml Total Protein 7.0 (6.0-8.3) gm/dl Albumin 4.4 (3.4-5.0) gm/dl Globulin 2.6 (2.5-4.0) gm/dl Albumin/Globulin Ratio 1.7 (0.9-2) Diagnostic Findings CXR FINDINGS: An implanted pacemaker is seen. Aortic valvular prosthesis is seen. Elevation of the left hemidiaphragm is seen. No evidence of pleural effusion or pneumothorax. IMPRESSION: No acute chest disease. CT head Findings: The ventricles, basal cisterns, and cerebral sulci are normal. There is no acute intracranial hemorrhage or evidence of acute territorial infarction. Neither mass effect, shift of the midline structures, nor abnormal extra-axial fluid collections are shown. Imaged portions of the paranasal sinuses and mastoid air cells are clear. The orbits appear normal. There are no acute fractures of the calvaria or scalp swelling. Impression: No acute intracranial hemorrhage, no evidence of acute territorial infarction or other acute intracranial disease process.
[2024-01-08 20:13] LABS: Appearance Urine Clear (Clear); Bilirubin Urine Negative (Negative); Blood Urine Negative (Negative); Color Urine Dark Yellow; Glucose Urine UA Negative (Negative); Ketones Urine Negative (Negative); Leukocyte Esterase Urine Negative (Negative); Nitrite Urine Negative (Negative); Protein Urine Negative (Negative); Specific Gravity Urine 1.015 (1.000-1.030); Urobilinogen Urine Negative (Negative)
[2024-01-08] MEDS ORDERED: ALBUTEROL HFA 8 GM INHALER INH PRN (20:36)
[2024-01-08] MEDS ORDERED: INSULIN ASPART PER UNIT CHARGE SQ SCH (20:36)
[2024-01-08] MEDS ORDERED: ALBUT/IPRATROP 3MG/0.5MG NEB 3 ML VIAL INH PRN (20:36)
[2024-01-08] MEDS ORDERED: DICYCLOMINE HCL 10 MG CAP PO PRN (20:36)
[2024-01-08] MEDS ORDERED: NITROGLYCERIN SL 0.4 MG/TAB TAB SL PRN (20:36)
[2024-01-08 21:12] LABS: Adenovirus PCR Not Detected (NotDetected); Bordetella parapertussis PCR Not Detected (NotDetected); Bordetella pertussis PCR Not Detected (NotDetected); Chlamydia pneumoniae PCR Not Detected (NotDetected); Coronavirus 229E PCR Not Detected (NotDetected); Coronavirus CoV-2 (COVID19)PCR Not Detected (NotDetected); Coronavirus HKU1 PCR Not Detected (NotDetected); Coronavirus NL63 PCR Not Detected (NotDetected); Coronavirus OC43PCR Not Detected (NotDetected); Human Metapneumovirus PCR Not Detected (NotDetected); Influenza A PCR Not Detected (NotDetected); Influenza B PCR Not Detected (NotDetected); Mycoplasma pneumoniae PCR Not Detected (NotDetected); Parainfluenza Virus 1 PCR Not Detected (NotDetected); Parainfluenza Virus 2 PCR Not Detected (NotDetected); Parainfluenza Virus 3 PCR Not Detected (NotDetected); Parainfluenza Virus 4 PCR Not Detected (NotDetected); Respiratory Syncytial VirusPCR Not Detected (NotDetected); Rhinovirus/Enterovirus PCR DETECTED (NotDetected)
[2024-01-08] MEDS ORDERED: CARBOHYDRATES FOR HYPOGLYCEMIA PO PRN (21:43)
[2024-01-08] MEDS ORDERED: GLUCOSE 40% GEL 15 GM TUBE PO PRN (21:43)
[2024-01-08] MEDS ORDERED: GLUCOSE 10 TAB/TUBE PO PRN (21:43)
[2024-01-08] MEDS ORDERED: GLUCAGON FOR INJ 1 MG VIAL SQ PRN (21:43)
[2024-01-08] MEDS ORDERED: DEXTROSE 50% 50 ML SYRINGE IV PRN (21:43)
[2024-01-08] MEDS: traZODone HCL 50 MG TAB PO SCH (22:13)
[2024-01-08] MEDS: HYDROcodone/ACETAMINOPHEN 10/325 TAB PO PRN (22:13)
[2024-01-08] MEDS: PREGABALIN 75 MG CAP PO SCH (22:13)
[2024-01-08] MEDS: LORazepam 0.5 MG TAB PO PRN (22:13)
[2024-01-08] MEDS: PANTOprazole 40 MG TAB PO SCH (22:14)
[2024-01-08] MEDS: FAMOTIDINE 20 MG TAB PO SCH (22:15)
[2024-01-08] MEDS: LANTUS PER UNIT CHARGE SC SCH (22:19)
[2024-01-08] MEDS: INSULIN ASPART PER UNIT CHARGE SC SCH (22:19)
--- OUTSIDE RECORDS SUMMARY | 2024-01-09 00:04 | External Medical Summary | Summary of Care ---
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 Worker Name Role Phone Brigitte Byrd MD Primary Care Prov ider Reason for Visit * Reason Comments eRx-Medication Refill Encounter Details Date Type Department Care Team (Late st Contact Info) Description 01/05/2024 Refill Family Medicine [address] [phone] Brigitte Byrd MD [address] [place] [address] [place] [address] Type 2 diabetes mellitus with hemoglobin A1c goal of less than 8.0% ([facility]); Diabetes mellitus, type II, insulin dependent ([facility]) Allergies Active Allergy Reactions Criticality Noted Date Comments Diclofenac Resin Rash Low 11/15/1999 Voltaren Atorvastatin Calcium Muscle pain 11/23/2018 Rosuvastatin Muscle pain 11/23/2018 documented as of this encounter (statuses as of 01/07/2024) Medications Medication Sig Dispensed Refills Start Date End Date Status MULTIVITAMINS PO TABS one tab daily Active Insulin Syringe-Needle U-100 30G X 1/2" 0.3 ML MISCIndications:DM type 2 nursing care encounter ([facility]) Use as directed. 1 Box 11 01/06/20 15 Active isosorbide dinitrate (ISORDIL) 10 MG Tablet Take 1 Tablet by mouth in the morning. 08/25/19 19 Active furosemide (LASIX) 20 MG Tablet Take 1 Tablet by mouth in the morning. Active magnesium citrate solutionIndications :Drug-induced constipation Take 120 mL by mouth daily as needed for Constipation. for severe constipation. 240 mL 1 12/27/19 19 Active polyethylene glycol 3350 (MIRALAX) 255 gram powderIndications:D rug-induced constipation Dissolve one heaping tablespoon in 8 ounces of water or juice - one dose per day as needed for severe constipation 1 Bottle 2 01/03/20 19 Active Aspirin Low Dose 81 MG Oral Tablet Chewable Take 1 Tablet by mouth in the morning. 08/05/19 21 Active Ipratropium-Albuter ol 0.5-2.5 (3) MG/3ML Inhalation Solution (Duoneb)Indications :COPD exacerbation (HCC) INHALE 1 VIAL VIA NEBILIZER TWICE A DAY AND EVERY 6 HOURS IN BETWEEN NEEDED 270 mL 5 10/14/19 21 Active Accu-Chek Guide w/Device KitIndications:Type 2 diabetes mellitus with hemoglobin A1c goal of less than 8.0% (HCC) Use as directed . Test 3 times daily. Pt is on insulin Dx E11.9 1 Kit 04/30/19 22 Active Atenolol 25 MG Oral Tablet (Tenormin)Indicatio ns:Atherosclerosis of quechan coronary artery of quechan heart without angina pectoris take 1/2 tablet by mouth every evening if needed for PALPITATIONS 45 Tablet 3 09/03/19 23 Active Zoster Vac Recomb Adjuvanted 50 MCG/0.5ML Intramuscular Suspension Reconstituted (Shingrix) Inject 0.5 mL into a large muscle now and repeat dose in 60 to 180 days 1 Each 1 09/14/19 23 Active Fluticasone Propionate 50 MCG/ACT Nasal Suspension (Flonase)Indication s:Allergic rhinitis Administer 1 Marion into nostril in the morning. 48 mL 1 12/04/19 23 Active BD Pen Needle Short U/F 31G X 8 MM (Insulin Pen Needle)Indications: Type 2 diabetes mellitus with hemoglobin A1c goal of less than 8.0% (HCC) USE 5 TIMES DAILY WITH INSULIN DX E11.9 500 Each 3 12/06/19 23 Active linaCLOtide 290 MCG Oral CapsuleIndications: Chronic constipation DAILY 30 Capsule 5 02/29/20 23 Active Baclofen 10 MG Oral Tablet (Lioresal)Indicatio ns:Cervical stenosis of spinal canal take 1 tablet by mouth four times a day if needed for muscle spasm 180 Tablet 3 03/31/19 24 Active Pantoprazole Sodium 40 MG Oral Tablet Delayed Release (Protonix) take 1 tablet by mouth every morning 90 Tablet 3 04/04/19 24 Active Montelukast Sodium 10 MG Oral Tablet (Singulair)Indicati ons:Mild persistent asthma without complication take 1 tablet by mouth at bedtime 90 Tablet 3 05/01/19 24 Active Nitroglycerin 0.4 MG Sublingual Tablet Sublingual (Nitrostat)Indicati ons:Coronary atherosclerosis place 1 tablet under the tongue if needed every 5 minutes for chest pain for 3 doses IF NO RELIEF AFTER THIRD DOSE CALL 911. 25 Tablet 3 05/03/19 24 Active Loratadine 10 MG Oral Tablet (Claritin)Indicatio ns:Seasonal allergic rhinitis due to pollen take 1 tablet by mouth every morning 90 Tablet 3 05/13/19 24 Active Accu-Chek Guide In Vitro Strip (Glucose Blood)Indications:T ype 2 diabetes mellitus with hemoglobin A1c goal of less than 8.0% ([facility]),Diabetes mellitus, type II, insulin dependent ([facility]) USE TEST STRIPS TO TEST BLOOD SUGARS THREE TIMES DAILY 300 Strip 2 05/25/19 24 Active FreeStyle Test In Vitro Strip (Glucose Blood)Indications:T ype 2 diabetes mellitus with hemoglobin A1c goal of less than 8.0% ([facility]) Use to test 3 times a day. E11.9 300 Strip 2 07/21/19 24 Active traZODone HCl 50 MG Oral Tablet (Desyrel)Indication s:Moderate episode of recurrent major depressive disorder (HCC) take 1 tablet by mouth BEFORE BEDTIME 90 Tablet 1 08/17/19 24 Active Pregabalin 100 MG Oral Capsule (Lyrica)Indications :Cervicalgia take 1 capsule by mouth every morning and 1 capsule by mouth AT NOON and 1 capsule by mouth BEFORE BEDTIME 90 Capsule 2 08/17/19 24 Active Potassium Chloride Karis ER 10 MEQ Oral Tablet Extended ReleaseIndications: Hypopotassemia take 1 tablet by mouth every morning 90 Tablet 1 08/29/19 24 Active Trelegy Ellipta 100-62.5-25 MCG/ACT Aerosol Powder Breath Activated (Fluticasone-Umecli dinium-Vilanterol) inhale 1 puff by mouth and INTO THE LUNGS every morning 60 Blister Dosing Unit 5 10/11/19 24 Active Albuterol Sulfate HFA 108 (90 Base) MCG/ACT Inhalation Aerosol SolutionIndications :Mild persistent asthma with acute exacerbation,COPD, group B, by GOLD 2017 classification ([facility]) inhale 1 TO 2 puffs by mouth and INTO THE LUNGS every 2 hours if needed 8.5 g 5 10/30/19 24 Active NovoLOG FlexPen 100 UNIT/ML Subcutaneous Solution Pen-injector (insulin aspart)Indications: Type 2 diabetes mellitus with hemoglobin A1c goal of less than 8.0% ([facility]) inject 20 units with breakfast 10 units with SNACK and 10 units with dinner (CF:1:40 OVER 160) 45 mL 3 11/10/19 24 Active Hydroxychloroquine Sulfate 200 MG Oral Tablet (Plaquenil)Indicati ons:HLA B27 (HLA B27 positive) take 2 tablets by mouth at bedtime 180 Tablet 1 11/29/19 24 Active LORazepam 0.5 MG Oral Tablet (Ativan)Indications :PTSD (post-traumatic stress disorder) Take 1 Tablet by mouth 2 times a day as needed for Anxiety. 60 Tablet 12/05/19 24 Active Warfarin Sodium 5 MG Oral Tablet (Coumadin)Indicatio ns:Chronic atrial fibrillation ([facility]) Take 1-2 Tablets by mouth every evening. Or take as instructed by the [facility]. 180 Tablet 1 12/19/19 24 Active Repatha SureClick 140 MG/ML Subcutaneous Solution Auto-injector Inject under the skin. 06/27/19 24 Active Clopidogrel Bisulfate 75 MG Oral Tablet (pLAVix) Take 1 Tablet by mouth in the morning. 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 30 Tablet 11 12/22/19 24 Active sulfaSALAzine 500 MG Oral Tablet (Azulfidine) Take 2 Tablets by mouth in the morning and 2 Tablets before bedtime. 120 Tablet 5 12/22/19 24 Active LORazepam 0.5 MG Oral Tablet (Ativan)Indications :PTSD (post-traumatic stress disorder) Take 1 Tablet by mouth 2 times a day as needed for Anxiety. 60 Tablet 01/01/20 24 Active DULoxetine HCl 30 MG Oral Capsule Delayed Release Particles (Cymbalta)Indicatio ns:Moderate episode of recurrent major depressive disorder (HCC) take 1 capsule by mouth every morning 90 Capsule 3 01/02/20 24 Active HYDROcodone-Acetami nophen 10-325 MG Oral TabletIndications:C ervical stenosis of spinal canal,Lumbar degenerative disc disease Take 2.5 Tablets by mouth daily as needed for Pain, Severe. Take 0.5-1 tab every 8 hours as needed for severe pain. Max dose of 2.5 tablets per day. 75 Tablet 01/04/20 24 Active Insulin Glargine Solostar 100 UNIT/ML Subcutaneous Solution Pen-injector (Basaglar KwikPen)Indications :Type 2 diabetes mellitus with hemoglobin A1c goal of less than 8.0% (HCC),Diabetes mellitus, type II, insulin dependent (HCC) inject 20 units subcutaneously every morning and inject 10 units every NIGHT 30 mL 1 01/07/20 24 Active Insulin Glargine Solostar 100 UNIT/ML Subcutaneous Solution Pen-injector (Basaglar KwikPen)Indications :Type 2 diabetes mellitus with hemoglobin A1c goal of less than 8.0% ([facility]),Diabetes mellitus, type II, insulin dependent (HCC) inject 20 units subcutaneously every morning and inject 10 units every NIGHT 30 mL 09/29/19 24 024 Discontinued Hospital, Clinic, or Other Facility Administered Medication Ordered Dose Route Frequency Start Date End Date Status Albuterol Sulfate (Proventil) (2.5 MG/3ML) 0.083% inhalation solution 2.5 mgIndications:COPD exacerbation (HCC) 2.5 mg NEBULIZER ONCE PRN 10/16/2023 10/15/2024 Active Albuterol Sulfate (Proventil) (2.5 MG/3ML) 0.083% inhalation solution 2.5 mgIndications:History of tobacco abuse,Dyspnea and respiratory abnormalities,COPD, severity to be determined (HCC) 2.5 mg NEBULIZER PRN 11/28/2023 11/27/2024 Active Albuterol Sulfate (Proventil) (5 MG/ML) 0.5% *conc* inhalation solution 2.5 mgIndications:History of tobacco abuse,Dyspnea and respiratory abnormalities,COPD, severity to be determined (HCC) 2.5 mg NEBULIZER PRN 11/28/2023 11/27/2024 Active documented as of this encounter (statuses as of 01/07/2024) Active Problems Problem Noted Date Diagnosed Date Moderate episode of recurrent major depressive d isorder 10/16/2023 Reactive arthritis of multiple sites 07/05/2023 Food insecurity 07/03/2023 Overview: Per [facility] Protocol Diabetic peripheral neuropathy 09/13/2022 skilled nursing current use of systemic steroids 06/20 History of 2019 novel coronavirus disease (COVID -19) 06/20/2022 Family hx of ALS (amyotrophic lateral sclerosis) 11/19/2021 Malaise and fatigue 11/19/2021 Anginal pain 05/27/2021 Encounter for long-term (current) use of medicat ions 11/22/2019 COPD, group B, by GOLD 2017 classification 07/07 Overview: Per COPD GOLD Classification Reactive arthritis 06/26/2019 Statin intolerance 03/11/2019 Drug-induced constipation 12/26/2018 Cardiac pacemaker in situ 11/23/2018 Chronic atrial fibrillation 08/24/2018 Overview: [facility] Dr Armenta Diabetes mellitus, type II, insulin dependent PTSD (post-traumatic stress disorder) 06/07/2016 Ventral hernia without obstruction or gangrene 0 07/24/2015 HTN, goal below 140/90 06/18/2015 Insomnia 05/21/2015 Old myocardial infarction 12/11/2014 Lumbar degenerative disc disease 11/21/2014 Cervical stenosis of spinal canal 08/28/2012 Cervicalgia 11/15/2011 Obesity (BMI 30.0-34.9) 09/27/2011 Diaphragm paralysis 09/08/2011 Overview: Left sided Tobacco use disorder 08/24/2011 GERD (gastroesophageal reflux disease) 2 ADVANCE DIRECTIVE INFORMATION 05/30/2011 Overview: No, Advance Directive brochure given to patient. Mailed 05/30/2011 MEDICATION USE AGREEMENT 12/11/2009 DYSLIPIDEMIA, GOAL LDL BELOW 70 03/03/2009 Overview: Per Lipid Taxonomy. Type 2 diabetes mellitus wit h hemoglobin A1c goal of less than 8.0% 01/22/2009 Overview: Per Diabetes Taxonomy. ICD-10 update of inactive term Myalgia 05/11/[address] excitation CORONARY ATHEROSCLEROSIS OF UNSPECIFIED TYPE OF VESSEL, CHILKAT OR GRAFT Peptic ulcer Asthma, mild persistent HLA B27 (HLA B27 positive) documented as of this encounter (statuses as of 01/07/2024) Resolved Problems Problem Noted Date Diagnosed Date Resolved Date Narcotic abuse 04/08/2021 09/13/2022 Overview: Violated Pain Med agreement - no showed multiple appointments. 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 Type 2 diabetes mellitus wit h hemoglobin A1c goal of less than 7.0% 08/01/2007 01/22/2009 Overview: Per Diabetes Taxonomy. 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 11/03/2016 Asthma, allergic 04/05/2001 09/17/2009 Arthritis, rheumatoid 2005 MYOCARDIAL INFARCTION; OTHER 12/11/2014 documented as of this encounter (statuses as of 01/07/2024) Immunizations Name Administration Dates Next Due COVID-19 mRNA, LNP-s, No Pre serve, 2-Dose Series (Moderna) 10/23/2020,06/23/2020 H1N1 2009 Influenza, IM 04/06/2009 Pneumococcal Conjugate Vacci ne, 20-valent ([id number]) 11/19/2021 Pneumococcal Polysaccharide PPV23 (Pneumovax) 02/09/2007 Seasonal Influenza Vac., MDV , IM, 0.5 mL (Fluzone) 02/04/2014,12/13/2012,12/15/2011,01/06,01/21/2010,02/18/2009,04/24/2008 ,02/09/2007 Seasonal Influenza, PF, 6 M & above, IM , (FluLaval or Fluzone) 01/02/2019,02/16/2018 Seasonal Influenza, QUAD, wi th Preserv, 6 mons & Above, 0.5 mL, IM 02/02/2021 Seasonal Influenza, Quadriva lent, No Preserve, IM 01/14/2020,01/28/2016 TDAP (age 10 and older)(Boostrix) 02/16/2018 TDAP, Age 7 and older, IM (Adacel) 08/13/2007 documented as of this encounter Social History Tobacco Use Types Packs/Day Years Used Date Smoking Tobacco: Every Day Cigarettes 0.5 51.9 Started: 1972 Pipe Cigars Smokeless Tobacco: Never Comments:10 cpd. Smoker. 11/27. Alcohol Use Standard Drinks/Week Comments Yes 0 (1 standard drink = 0.6 oz pur e alcohol) rare alcohol use PHQ-2 Answer Date Recorded PHQ-2 Score 13 06/12/2019 Hunger Vital Sign Answer Date Recorded Within the past 12 months, y ou worried that your food would run out before you got the money to buy more. Sometimes true Within the past 12 months, t he food you bought just didn't last and you didn't have money to get more. Sometimes true Childcare Answer Date Recorded Do you feel overwhelmed with taking care of a child, family member or friend? No 06/07/2023 Does your family need help f inding childcare? (Household - for ages 0-17 years) Not on file 06/07/2023 Clothing Answer Date Recorded Have you been unable to get clothing when it was really needed? No 06/07/2023 Is your family able to get c lothes or diapers when needed? (Household - for ages 0-17 years) Not on file 06/07/2023 Personal Safety Answer Date Recorded Do you feel unsafe or have concerns for your saf ety? No 06/07/2023 Do you have concerns for you r family's safety? (Household - for ages 0-17 years) Not on file 06/07/2023 Utilities Answer Date Recorded Do you have trouble paying y our heating, water, or electric bill? No 06/07/2023 Is your family able to pay t he heat, water, or electric bill? (Household - for ages 0-17 years) Not on file 06/07/2023 Does your family have access to good internet? (Household - for ages 0-17 years) Not on file 06/07/2023 Employment Status Answer Date Recorded Are you unemployed or without regular income? No 06/07/2023 Does the household have a re lar source of income? (Household - for ages 0-17 years) Not on file 06/07/2023 Social Connections Answer Date Recorded How often do you feel lonely or isolated from th ose around you? Rarely 06/07/2023 Financial Resource Strain Answer Date R ecorded Do you have any trouble payi ng for your medications, or do you think you might in the future? No 06/07/2023 Does your family have troubl e paying for medicine? (Household - for ages 0-17 years) Not on file 06/07/2023 Transportation Needs Answer Date Record ed READ ONLY Do you have troubl e getting a ride to medical visits or work? Never True 06/07/2023 Does your family have a hard time getting a ride to doctors visits? (Household - for ages 0-17 years) Not on file 06/07/2023 Has lack of transportation k ept you from medical appointments, meetings, work, or from getting things needed for daily living? Check all that apply. (Adult - for ages 18 years and over) Not on file 06/07/2023 Do you (or your family) have trouble finding or paying for a ride (transportation)? (Household - for ages 0-17 years) Not on file 06/07/2023 Housing Stability Answer Date Recorded Do you currently live in a s helter or have no steady place to sleep at night? Yes 06/07/2023 READ ONLY Do you think you a re at risk of becoming homeless? No 06/07/2023 Does your family worry about paying for your home or becoming homeless? (Household - for ages 0-17 years) Not on file 0 06/07/2023 Are you homeless or worried that you might be in the future? (Adult - for ages 18 years and over) Not on file Are you (or your family) michele eless or worried that you might be in the future? (Household - for ages 0-17 years) Not on file Food Insecurity Answer Date Recorded Do you need food for this week? No 06/07/2023 Are you able to get enough f ood for your family? (Household - for ages 0-17 years) Not on file 06/07/2023 Does your family need food t his week? (Household - for ages 0-17 years) Not on file 06/07/2023 Do you always have enough fo od for your family? (Household - for ages 0-17 years) Not on file 06/07/2023 Sex and Gender Information Value Date Recorded Sex Assigned at Male 06/07/2023 2:46 PM EDT Gender Identity Male 06/07/2023 2:46 PM EDT Sexual Orientation Straight 06/07/2023 2: 46 PM EDT Job Start Date Occupation Industry Not on file Not on file Not on file documented as of this encounter Miscellaneous Notes * Telephone Encounter - Edgardo Poon, [facility] - 01/07/2024 6:14 AM EDTSigned Prescriptions: Disp Refills Insulin Glargine Solostar 100 UNIT/ML Subc*30 mL 1 Sig: inject 20 units subcutaneously every morning and inject 10 units every NIGHTAuthorizing Provider: BRIGITTE BYRD User: EDGARDO POON documented in this encounter Plan of Treatment Upcoming Encounters Date Type Department Care Team (Late st Contact Info) Description 01/15/2024 6:30 AM EDT Anticoagulation [facility], [facility] D[facility] [address] [place] [address] [place] [phone] [facility], [address] [place] [address] 01/19/2024 6:10 PM EDT Pharmacy Pharmacy, [facility] [address] [address] [place] [address] [place] [id number] 01/22/2024 2:00 PM EDT Office Visit Family Medicine [address] [phone] Brigitte Byrd MD [address] [place] [address] [place] [phone] 02/13/2024 12:20 PM EST Office Visit Pulmonary Medicine, [facility] [address] [place] [id number] Miguel Munoz MD [address] [place] [phone] Scheduled Procedures Name Priority Associated Diagnoses Date/Ti me COLONOSCOPY FLEXIBLE PROXIMAL DIAGNOSTIC Recall History of colon polyps Health Maintenance Due Date Last Done Comments DISCUSS TOBACCO CESSATION (REFER TO SMARTSET #4828) 1955 Zoster Vaccines (1 of 2) 02/22/1975 Cologuard 02/22/2001 Fecal Occult Blood Test 02/22/2001 Sigmoidoscopy 02/22/2001 Depression Monitoring 06/11/2020 06/12/2019 COVID-19 Vaccine (3 - Moderna risk series) 11/20/2020 10/23/2020, 06/23/2020 Adult Wellness Visit 02/22/2022 Diabetic Eye Exam 09/14/2023 09/13/2022, , 06/22/2017, Additional history exists Diabetic Foot Exam 09/14/2023 09/13/2022, 0 05/27/2021, 06/12/2019, Additional history exists Influenza Vaccine (FLU shot) (#1) 2023 02/02/2021, 02/02/2021, 01/14/2020, Additional history exists HbA1c 04/18/2024 10/17/2023, 02/25, 09/14/2022, Additional history exists Albumin/Creatinine Ratio 10/16/2024 024, 09/14/2022, 05/27/2021, Additional history exists GFR 10/16/2024 10/17/2023, 06/25, 07/10/2023, Additional history exists O2 ASSESSMENT COMPLETED IN PAST YEAR FOR COPD 11/27/2024 11/28/2023 Colonoscopy 08/12/2026 08/12/2021, 09/24, 08/04/2009 Colorectal Cancer Screening 08/12/2026 DTap/Tdap Vaccines (3 - Td or Tdap) 02/17/2028 02/16/2018, 08/13/2007 Lung Cancer Screening Completed 07/10/2017 , 09/08/2016, 05/17/2016, Additional history exists RETIRED - COLONOSCOPY-EVERY 5 YRS AGES 18-100 Discontinued 08/12/2021, 10/10/2013, 08/04/2009 Pneumococcal Vaccine: 65+ Years Completed 11/19/2021, 02/09/2007 AAA Screening Completed 04/03/2023, 10/24/2013 Alpha-1 Antitrypsin Discontinued 11/28/2023 HPV (Gardasil) Vaccine Aged Out No lo nger eligible based on patient's age to complete this topic Hepatitis B Vaccine Aged Out No longe r eligible based on patient's age to complete this topic MENINGOCOCCAL (MENACTRA/MENVEO) Aged Out No longer eligible based on patient's age to complete this topic documented as of this encounter Medical Devices Not on filedocumented as of this encounter Visit Diagnoses Diagnosis Type 2 diabetes mellitus with hemoglobin A1c goal of less than 8.0% (HCC) Diabetes mellitus, type II, insulin dependent (HCC) Type II or unspecified type diabetes mellitus without mention of complication, not stated as uncontrolled documented in this encounter Advance Directives * Full Code (Latest Code Status on File) Date Activated Date Inactivated Comments 11/14/2019 1:04 PM 11/14/2019 6:53 PM This order r eflects the patients wishes and were consensually agreed upon. Question Answer Comments Discussion of Advance Directives occurred with: Not Discussed * Full Code Date Activated Date Inactivated Comments 11/14/2019 1:03 PM 11/14/2019 1:04 PM This order r eflects the patients wishes and were consensually agreed upon. Question Answer Comments Discussion of Advance Directives occurred with: Not Discussed * Full Code Date Activated Date Inactivated Comments 11/14/2019 10:54 AM 11/14/2019 1:03 PM This order reflects the patients wishes and were consensually agreed upon. 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
--- OUTSIDE RECORDS SUMMARY | 2024-01-09 00:04 | External Medical Summary | Summary of Care ---
Author Name Unknown Organization [facility] Address [address] [facility] [place] [address] Phone [phone] Care Team Providers Care Fly Maker Name Role Phone Brigitte Byrd MD Primary Care Prov ider Reason for Visit * Reason Onset Date Comments Medication Refill 01/02/2024 Encounter Details Date Type Department Care Team (Late st Contact Info) Description 01/02/2024 Refill Family Medicine [address] [phone] Brigitte Byrd MD [address] [place], [place] [address] [address] Cervical stenosis of spinal canal; Lumbar degenerative disc disease Allergies Active Allergy Reactions Criticality Noted Date Comments Diclofenac Resin Rash Low 11/15/1999 Voltaren Atorvastatin Calcium Muscle pain 11/23/2018 Rosuvastatin Muscle pain 11/23/2018 documented as of this encounter (statuses as of 01/04/2024) Medications Medication Sig Dispensed Refills Start Date End Date Status MULTIVITAMINS PO TABS one tab daily Active Insulin Syringe-Needle U-100 30G X 1/2" 0.3 ML MISCIndications:DM type 2 nursing care encounter (HCC) Use as directed. 1 Box 11 5 Active isosorbide dinitrate (ISORDIL) 10 MG Tablet Take 1 Tablet by mouth in the morning. 9 Active furosemide (LASIX) 20 MG Tablet Take 1 Tablet by mouth in the morning. Active magnesium citrate solutionIndications :Drug-induced constipation Take 120 mL by mouth daily as needed for Constipation. for severe constipation. 240 mL 1 9 Active polyethylene glycol 3350 (MIRALAX) 255 gram powderIndications:D rug-induced constipation Dissolve one heaping tablespoon in 8 ounces of water or juice - one dose per day as needed for severe constipation 1 Bottle 2 9 Active Aspirin Low Dose 81 MG Oral Tablet Chewable Take 1 Tablet by mouth in the morning. 1 Active Ipratropium-Albuter ol 0.5-2.5 (3) MG/3ML Inhalation Solution (Duoneb)Indications :COPD exacerbation (HCC) INHALE 1 VIAL VIA NEBILIZER TWICE A DAY AND EVERY 6 HOURS IN BETWEEN NEEDED 270 mL 5 1 Active Accu-Chek Guide w/Device KitIndications:Type 2 diabetes mellitus with hemoglobin A1c goal of less than 8.0% ([facility]) Use as directed . Test 3 times daily. Pt is on insulin Dx E11.9 1 Kit 2 Active Atenolol 25 MG Oral Tablet (Tenormin)Indicatio ns:Atherosclerosis of [place] coronary artery of [place] heart without angina pectoris take 1/2 tablet by mouth every evening if needed for PALPITATIONS 45 Tablet 3 3 Active Zoster Vac Recomb Adjuvanted 50 MCG/0.5ML Intramuscular Suspension Reconstituted (Shingrix) Inject 0.5 mL into a large muscle now and repeat dose in 60 to 180 days 1 Each 1 3 Active Fluticasone Propionate 50 MCG/ACT Nasal Suspension (Flonase)Indication s:Allergic rhinitis Administer 1 [place] into nostril in the morning. 48 mL 1 3 Active BD Pen Needle Short U/F 31G X 8 MM (Insulin Pen Needle)Indications: Type 2 diabetes mellitus with hemoglobin A1c goal of less than 8.0% (HCC) USE 5 TIMES DAILY WITH INSULIN DX E11.9 500 Each 3 3 Active linaCLOtide 290 MCG Oral CapsuleIndications: Chronic constipation DAILY 30 Capsule 5 3 Active Baclofen 10 MG Oral Tablet (Lioresal)Indicatio ns:Cervical stenosis of spinal canal take 1 tablet by mouth four times a day if needed for muscle spasm 180 Tablet 3 4 Active Pantoprazole Sodium 40 MG Oral Tablet Delayed Release (Protonix) take 1 tablet by mouth every morning 90 Tablet 3 4 Active Montelukast Sodium 10 MG Oral Tablet (Singulair)Indicati ons:Mild persistent asthma without complication take 1 tablet by mouth at bedtime 90 Tablet 3 4 Active Nitroglycerin 0.4 MG Sublingual Tablet Sublingual (Nitrostat)Indicati ons:Coronary atherosclerosis place 1 tablet under the tongue if needed every 5 minutes for chest pain for 3 doses IF NO RELIEF AFTER THIRD DOSE CALL 911. 25 Tablet 3 4 Active Loratadine 10 MG Oral Tablet (Claritin)Indicatio ns:Seasonal allergic rhinitis due to pollen take 1 tablet by mouth every morning 90 Tablet 3 4 Active Accu-Chek Guide In Vitro Strip (Glucose Blood)Indications:T ype 2 diabetes mellitus with hemoglobin A1c goal of less than 8.0% ([facility]),Diabetes mellitus, type II, insulin dependent ([facility]) USE TEST STRIPS TO TEST BLOOD SUGARS THREE TIMES DAILY 300 Strip 2 4 Active FreeStyle Test In Vitro Strip (Glucose Blood)Indications:T ype 2 diabetes mellitus with hemoglobin A1c goal of less than 8.0% ([facility]) Use to test 3 times a day. E11.9 300 Strip 2 4 Active traZODone HCl 50 MG Oral Tablet (Desyrel)Indication s:Moderate episode of recurrent major depressive disorder (HCC) take 1 tablet by mouth BEFORE BEDTIME 90 Tablet 1 4 Active Pregabalin 100 MG Oral Capsule (Lyrica)Indications :Cervicalgia take 1 capsule by mouth every morning and 1 capsule by mouth AT NOON and 1 capsule by mouth BEFORE BEDTIME 90 Capsule 2 4 Active Potassium Chloride Karis ER 10 MEQ Oral Tablet Extended ReleaseIndications: Hypopotassemia take 1 tablet by mouth every morning 90 Tablet 1 4 Active Insulin Glargine Solostar 100 UNIT/ML Subcutaneous Solution Pen-injector (Rajan Moreira)Indications :Type 2 diabetes mellitus with hemoglobin A1c goal of less than 8.0% ([facility]),Diabetes mellitus, type II, insulin dependent ([facility]) inject 20 units subcutaneously every morning and inject 10 units every NIGHT 30 mL 4 Active Trelegy Ellipta 100-62.5-25 MCG/ACT Aerosol Powder Breath Activated (Fluticasone-Umecli dinium-Vilanterol) inhale 1 puff by mouth and INTO THE LUNGS every morning 60 Blister Dosing Unit 5 4 Active Albuterol Sulfate HFA 108 (90 Base) MCG/ACT Inhalation Aerosol SolutionIndications :Mild persistent asthma with acute exacerbation,COPD, group B, by GOLD 2017 classification ([facility]) inhale 1 TO 2 puffs by mouth and INTO THE LUNGS every 2 hours if needed 8.5 g 5 4 Active NovoLOG FlexPen 100 UNIT/ML Subcutaneous Solution Pen-injector (insulin aspart)Indications: Type 2 diabetes mellitus with hemoglobin A1c goal of less than 8.0% ([facility]) inject 20 units with breakfast 10 units with SNACK and 10 units with dinner (CF:1:40 OVER 160) 45 mL 3 4 Active Hydroxychloroquine Sulfate 200 MG Oral Tablet (Plaquenil)Indicati ons:HLA B27 (HLA B27 positive) take 2 tablets by mouth at bedtime 180 Tablet 1 4 Active LORazepam 0.5 MG Oral Tablet (Ativan)Indications :PTSD (post-traumatic stress disorder) Take 1 Tablet by mouth 2 times a day as needed for Anxiety. 60 Tablet 4 Active Warfarin Sodium 5 MG Oral Tablet (Coumadin)Indicatio ns:Chronic atrial fibrillation ([facility]) Take 1-2 Tablets by mouth every evening. Or take as instructed by the [facility]. 180 Tablet 1 4 Active Repatha SureClick 140 MG/ML Subcutaneous Solution Auto-injector Inject under the skin. 4 Active Clopidogrel Bisulfate 75 MG Oral Tablet (pLAVix) Take 1 Tablet by mouth in the morning. 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 30 Tablet 11 4 Active sulfaSALAzine 500 MG Oral Tablet (Azulfidine) Take 2 Tablets by mouth in the morning and 2 Tablets before bedtime. 120 Tablet 5 4 Active LORazepam 0.5 MG Oral Tablet (Ativan)Indications :PTSD (post-traumatic stress disorder) Take 1 Tablet by mouth 2 times a day as needed for Anxiety. 60 Tablet 4 Active DULoxetine HCl 30 MG Oral Capsule Delayed Release Particles (Cymbalta)Indicatio ns:Moderate episode of recurrent major depressive disorder (HCC) take 1 capsule by mouth every morning 90 Capsule 3 4 Active HYDROcodone-Acetami nophen 10-325 MG Oral TabletIndications:C ervical stenosis of spinal canal,Lumbar degenerative disc disease Take 2.5 Tablets by mouth daily as needed for Pain, Severe. Take 0.5-1 tab every 8 hours as needed for severe pain. Max dose of 2.5 tablets per day. 75 Tablet 4 Active HYDROcodone-Acetami nophen 10-325 MG Oral TabletIndications:C ervical stenosis of spinal canal,Lumbar degenerative disc disease Take 2.5 Tablets by mouth daily as needed for Pain, Severe. Take 0.5-1 tab every 8 hours as needed for severe pain. Max dose of 2.5 tablets per day. 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 06/20 History [...] situ 11/23/2018 Chronic atrial fibrillation 08/24/2018 Overview: [facility] Dr Armenta Diabetes mellitus, type [...] CORONARY ATHEROSCLEROSIS OF UNSPECIFIED TYPE OF VESSEL, [place] OR GRAFT Peptic ulcer Asthma, mild persistent HLA B27 (HLA B27 positive) documented as of this encounter (statuses as of 01/04/2024) Resolved Problems Problem Noted Date Diagnosed Date [...] pain 05/31/2011 08/29/2017 Atrial fibrillation 07/29/2010 08/25/19 Asthma with severity to be determined 09/17/2009 [...] as of this encounter (statuses as of 01/04/2024) Immunizations Name Administration Dates Next Due COVID-19 mRNA, LNP-s, No Pre serve, 2-Dose Series (Moderna) 10/23/2020,06/23/2020 H1N1 2009 Influenza, IM 04/06/2009 Pneumococcal Conjugate Vacci ne, 20-valent ([id number]) 11/19/2021 Pneumococcal Polysaccharide PPV23 (Pneumovax) 02/09/2007 Seasonal [...] No 06/07/2023 Does the household have a [facility] source of income? (Household - for ages [...] encounter Miscellaneous Notes * Telephone Encounter - Brigitte Byrd MD - 01/04/2024 2:36 PM EDT Signed Prescriptions: Disp Refills HYDROcodone-Acetaminophen 10-325 MG Oral T*75 Tab*0 Sig: Take 2.5 Tablets by mouth daily as needed for Pain, Severe. Take 0.5-1 tab every 8 hours as needed for severe pain. Max dose of 2.5 tablets per day. Authorizing Provider: BRIGITTE BYRD * Telephone Encounter - Rani Keane [facility] - 01/04/2024 11:35 AM EDTPending Prescriptions: Disp Refills HYDROcodone-Acetaminophen 10-325 MG Oral T*75 Tab*0 Sig: Take 2.5 Tablets by mouth daily as needed for Pain, Severe. Take 0.5-1 tab every 8 hours as needed for severe pain. Max dose of 2.5 tablets per day. * Telephone Encounter - Rani Keane [facility] - 01/04/2024 11:35 AM EDT I have reviewed the patients controlled substance dispensing history in the Prescription Drug Monitoring Program in compliance with the [facility] regulations before prescribing a controlled substance. PDMP checked on 01/04/2024. Pending Prescriptions: Disp Refills HYDROcodone-Acetaminophen 10-325 MG Oral *75 Tab*0 Sig: Take 2.5 Tablets by mouth daily as needed for Pain, Severe. Take 0.5-1 tab every 8 hours as needed for severe pain. Max dose of 2.5 tablets per day. Last Visit: 10/16/2023 (in office), 08/29/2023 (telemedicine) Next Visit: 01/22/2024 Date medication was last filled: 12/04/23 Date medication is due for refill: 01/02/24 Pharmacy: [id number] [facility] Is this request for a controlled substance? Yes and Urine Drug Screen Not completed Toxicology results: Results for orders placed or performed in visit on 11/09/21 PAIN MANAGEMENT DRUG PANEL, URINE W/ INTERPRETATION Result Value Compliance Interpretation Based on the medication information provided: The presence of morphine, hydrocodone, dihydrocodeine and hydromorphone is CONSISTENT with morphineand hydrocodone use. Amphetamines Screen, U Negative Benzodiazepines Screen, U Negative Cannabinoids Screen, U Negative Cocaine Metabolite Screen, U Negative Fentanyl Screen, U Negative Hydrocodone Screen, U Refer to confirmation results (A) Methadone Metabolite Screen, U Negative Morphine/Codeine Screen, U Refer to confirmation results (A) Oxycodone Screen, U Refer to confirmation results (A) Valid Interpretation Normal Creatinine, U 133 Narrative Cutoff Concentrations: Drug Level Amphetamines 500 ng/mL Benzodiazepines 100 ng/mL Cannabinoids 50 ng/mL Cocaine Metabolite 150 ng/mL Fentanyl 1 ng/mL Hydrocodone / Hydromorphone 300 ng/mL Methadone Metabolite 100 ng/mL Morphine / Codeine 300 ng/mL Oxycodone / Oxymorphone 100 ng/mL Screening results are presumptive and can only be used for medical purposes. Confirmatory testing is available upon request. *Note: Due to a large number of results and/or encounters for the requested time period, some results have not been displayed. A complete set of results can be found in Results Review. Please approve if appropriate. Thanks, Rani Ricardo, PharmD Clinical Pharmacist [facility] [phone] 01/04/2024 11:35 AM documented in this encounter Plan of Treatment Upcoming Encounters Date Type Department Care Team (Late st Contact Info) Description 01/15/2024 6:30 AM EDT Anticoagulation [facility], [facility] Doss [address] [place] [address] [place] [address] [place] [address] 01/19/2024 6:10 PM EDT Pharmacy Pharmacy, [facility] [address] [facility] [place] [address] [place] [address] 01/22/2024 2:00 PM EDT Office Visit Family Medicine [address] [place] [phone] Brigitte Byrd MD [address] [place] [address] [place] [phone] 02/13/2024 12:20 PM EST Office Visit Pulmonary Medicine, [facility] [address] [place] [address] Miguel Munoz MD [address] [facility] [place] [id number] Scheduled Procedures Name Priority Associated Diagnoses Date/Ti me COLONOSCOPY FLEXIBLE PROXIMAL DIAGNOSTIC Recall History of colon polyps Health Maintenance Due Date Last Done Comments DISCUSS TOBACCO CESSATION (REFER TO SMARTSET #3291) 1956 Zoster Vaccines (1 of 2) 02/22/1975 [...] as of this encounter Visit Diagnoses Diagnosis Cervical stenosis of spinal canal Spinal stenosis in cervical region Lumbar degenerative disc disease Degeneration of lumbar or lumbosacral intervertebral disc documented in this encounter Advance Directives * [...] Directives occurred with: Not Discussed Care Teams Fly Maker Relationship Specialty Start Date End Date Brigitte Byrd MD [address] [place] [address] [place] [phone] PCP - General Family Medicine 11/23/18 documented as of this encounter
--- OUTSIDE RECORDS SUMMARY | 2024-01-09 00:05 | External Medical Summary | Summary of Care ---
Author Name Unknown Organization [facility] [address] [facility] [address] Phone [phone] Care Team Providers Care Bottle Dealer Name Role Phone Brigitte Byrd MD Primary Care Prov ider Reason for Visit * Reason Onset Date Comments Medication Refill 12/30/2023 Encounter Details Date Type Department Care Team (Late st Contact Info) Description 12/30/2023 Refill Family Medicine [address] [phone] Rosa Borja MD [address] [place] [address] [place] [phone] PTSD (post-traumatic stress disorder) Allergies Active Allergy Reactions Criticality Noted Date Comments Diclofenac Resin Rash Low 11/15/1999 Voltaren Atorvastatin Calcium Muscle pain 11/23/2018 Rosuvastatin Muscle pain 11/23/2018 documented as of this encounter (statuses as of 01/01/2024) Medications Medication Sig Dispensed Refills Start Date [...] 25 MG Oral Tablet (Tenormin)Indicatio ns:Atherosclerosis of [place] coronary artery of [place] heart without angina pectoris take 1/2 tablet by mouth every evening if needed for PALPITATIONS 45 Tablet 3 3 Active Zoster Vac Recomb Adjuvanted 50 MCG/0.5ML Intramuscular Suspension Reconstituted (Shingrix) Inject 0.5 mL into a large muscle now and repeat dose in 60 to 180 days 1 Each 1 3 Active Fluticasone Propionate 50 MCG/ACT Nasal Suspension (Flonase)Indication s:Allergic rhinitis Administer 1 [place] into nostril in the morning. 48 mL [...] A1c goal of less than 8.0% ([facility]),Diabetes mellitus, type II, insulin dependent (HCC) USE TEST STRIPS TO TEST BLOOD SUGARS THREE TIMES DAILY 300 Strip 2 4 Active DULoxetine HCl 30 MG Oral Capsule Delayed Release Particles (Cymbalta)Indicatio ns:Moderate episode of recurrent major depressive disorder (HCC) take 1 capsule by mouth every morning 90 Capsule 1 4 Active FreeStyle Test In Vitro Strip (Glucose Blood)Indications:T ype 2 diabetes mellitus with hemoglobin A1c goal of less than 8.0% ([facility]) Use to test 3 times a day. [...] A1c goal of less than 8.0% ([facility]),Diabetes mellitus, type II, insulin dependent ([facility]) inject 20 units subcutaneously every morning and [...] group B, by GOLD 2017 classification ([facility]) inhale 1 TO 2 puffs by mouth and INTO THE LUNGS every 2 hours if needed 8.5 g 5 4 Active NovoLOG FlexPen 100 UNIT/ML Subcutaneous Solution Pen-injector (insulin aspart)Indications: Type 2 diabetes mellitus with hemoglobin A1c goal of less than 8.0% ([facility]) inject 20 units with breakfast 10 units with SNACK and 10 units with dinner (CF:1:40 OVER 160) 45 mL 3 4 Active Hydroxychloroquine Sulfate 200 MG Oral Tablet (Plaquenil)Indicati ons:HLA B27 (HLA B27 positive) take 2 tablets by mouth at bedtime 180 Tablet 1 4 Active HYDROcodone-Acetami nophen 10-325 MG Oral TabletIndications:C ervical stenosis of spinal canal,Lumbar degenerative disc disease Take 2.5 Tablets by mouth daily as needed for Pain, Severe. Take 0.5-1 tab every 8 hours as needed for severe pain. Max dose of 2.5 tablets per day. 75 Tablet 4 Active LORazepam 0.5 MG Oral Tablet (Ativan)Indications :PTSD (post-traumatic stress disorder) Take 1 Tablet by mouth 2 times a day as needed for Anxiety. 60 Tablet 4 Active Warfarin Sodium 5 MG Oral Tablet (Coumadin)Indicatio ns:Chronic atrial fibrillation (HCC) Take 1-2 Tablets by mouth every evening. Or take as instructed by the [facility]. 180 Tablet 1 4 Active Repatha SureClick 140 MG/ML Subcutaneous Solution Auto-injector Inject under the skin. 4 Active Clopidogrel Bisulfate 75 MG Oral Tablet (pLAVix) Take 1 Tablet by mouth in the morning. 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 60 Tablet 4 Active LORazepam 0.5 MG Oral Tablet (Ativan)Indications :PTSD (post-traumatic stress disorder) take 1 tablet by mouth twice a day if needed for anxiety 60 Tablet 4 12/30/19 24 Discontinu ed(Refill) Hospital, Clinic, or Other [...] as of this encounter (statuses as of 01/01/2024) Active Problems Problem Noted Date Diagnosed Date Moderate episode of recurrent major depressive d isorder 10/16/2023 Reactive arthritis of multiple sites 07/05/2023 Food insecurity 07/03/2023 Overview: Per [facility] Protocol Diabetic peripheral neuropathy 09/13/2022 longterm current use of systemic steroids 06/20 History [...] situ 11/23/2018 Chronic atrial fibrillation 08/24/2018 Overview: [facility] Dr Armenta Diabetes mellitus, type [...] CORONARY ATHEROSCLEROSIS OF UNSPECIFIED TYPE OF VESSEL, [place] OR GRAFT Peptic ulcer Asthma, mild persistent HLA B27 (HLA B27 positive) documented as of this encounter (statuses as of 01/01/2024) Resolved Problems Problem Noted Date Diagnosed Date [...] 02/05/2013 08/29/2017 Syncope 02/05/2013 03/10/2017 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 (Household - for ages [...] Telephone Encounter - Brigitte Byrd MD - 01/01/2024 4:46 PM EDT Signed Prescriptions: Disp Refills LORazepam 0.5 MG Oral Tablet (Ativan) 60 Tab*0 Sig: Take 1 Tablet by mouth 2 times a day as needed for Anxiety. Authorizing Provider: BRIGITTE BYRD * Telephone Encounter - Vivien Morrison [facility] - 01/01/2024 3:53 PM EDT Pending Prescriptions: Disp Refills LORazepam 0.5 MG Oral Tablet (Ativan) 60 Tab*0 Sig: Take 1 Tablet by mouth 2 times a day as needed for Anxiety. * Telephone Encounter - Vivien Morrison RP - 01/01/2024 3:52 PM EDT I have reviewed the patients controlled substance dispensing history in the Prescription Drug Monitoring Program in compliance with the [facility] regulations before prescribing a controlled substance. PDMP checked on 01/01/2024. Pending Prescriptions: Disp Refills LORazepam 0.5 MG Oral Tablet (Ativan) 60 Tab*0 Sig: Take 1 Tablet by mouth 2 times a day as needed for Anxiety. Last Visit: 10/16/2023 (in office), 08/29/2023 (telemedicine) Next Visit: 01/22/2024 Date medication was last filled: 12/05/23 Date medication is due for refill: 01/04/24 Pharmacy: [facility] #[id number] [facility] Is this request for a controlled [...] in Results Review. Please approve if appropriate. Thank you, Vivien Morrison PharmD, JEFF Clinical Pharmacist Centralized Clinical Pharmacy Services ([facility]) 01/01/24 3:52 PM [phone] documented in this encounter Plan of Treatment Upcoming Encounters Date Type Department Care Team (Late st Contact Info) Description 01/15/2024 6:30 AM EDT Anticoagulation [facility] Clinical Pharmacy Services, [facility] Romario [address] [place] [address] [place] [phone] [facility], [address] [place] [address] 01/19/2024 6:10 PM EDT Pharmacy Pharmacy, [address] [place] [address] [facility] [address] [facility] [place] [address] 01/22/2024 2:00 PM EDT Office Visit Family Medicine [address] [place] [phone] Brigitte Byrd MD [address] [place] [address] [place] [phone] 02/13/2024 12:20 PM EST Office Visit Pulmonary Medicine, [facility] [address] [place] [address] Miguel Munoz MD [address] [place] [phone] Scheduled Procedures Name Priority Associated Diagnoses Date/Ti me COLONOSCOPY FLEXIBLE PROXIMAL DIAGNOSTIC Recall History of colon polyps Health Maintenance Due Date Last Done Comments DISCUSS TOBACCO CESSATION (REFER TO SMARTSET #3299) 1955 Zoster Vaccines (1 of 2) 02/22/1975 [...] as of this encounter Visit Diagnoses Diagnosis PTSD (post-traumatic stress disorder) Posttraumatic stress disorder documented in this encounter Advance Directives * [...] Directives occurred with: Not Discussed Care Teams Bottle Dealer Relationship Specialty Start Date End Date Brigitte Byrd MD [address] [place] [address] [place] [id number] PCP - General Family Medicine 11/23/18 documented as of this encounter
--- OUTSIDE RECORDS SUMMARY | 2024-01-09 00:05 | External Medical Summary | Summary of Care ---
Author Name Unknown Organization [facility] Address [address] [facility] [place] [address] Phone [phone] Care Team Providers Care Dependency Counselor Name Role Phone Brigitte Byrd MD Primary Care Prov ider Reason for Visit * Reason Comments Dosage Adjustment Via Phone (anticoag Cl inic) Encounter Details Date Type Department Care Team (Late st Contact Info) Description 12/25/2023 6:30 AM EDT An[facility], [facility] [address] [place] [address] [place] [id number] [place] [address] Chronic atrial fibrillation (HCC)* Allergies Active Allergy Reactions Criticality Noted Date Comments Diclofenac Resin Rash Low 11/15/1999 Voltaren Atorvastatin Calcium Muscle pain 11/23/2018 Rosuvastatin Muscle pain 11/23/2018 documented as of this encounter (statuses as of 12/25/2023) Medications Medication Sig Dispensed Refills Start Date [...] mouth in the morning. Active magnesium citrate solutionIndications: Drug-induced constipation Take 120 mL by mouth daily as needed for Constipation. for severe constipation. 240 mL 1 9 Active polyethylene glycol 3350 (MIRALAX) 255 gram powderIndications:Dr ug-induced constipation Dissolve one heaping tablespoon in 8 ounces of water or juice - one dose per day as needed for severe constipation 1 Bottle 2 9 Active Aspirin Low Dose 81 MG Oral Tablet Chewable Take 1 Tablet by mouth in the morning. 1 Active Ipratropium-Albutero l 0.5-2.5 (3) MG/3ML Inhalation Solution (Duoneb)Indications: COPD exacerbation (HCC) INHALE 1 VIAL VIA NEBILIZER TWICE A DAY AND EVERY 6 HOURS IN BETWEEN NEEDED 270 mL 5 1 Active Accu-Chek Guide w/Device KitIndications:Type 2 diabetes mellitus with hemoglobin A1c goal of less than 8.0% ([facility]) Use as directed . Test 3 times daily. Pt is on insulin Dx E11.9 1 Kit 2 Active Atenolol 25 MG Oral Tablet (Tenormin)Indication s:Atherosclerosis of [place] coronary artery of [place] heart without angina pectoris take 1/2 tablet by mouth every evening if needed for PALPITATIONS 45 Tablet 3 3 Active Zoster Vac Recomb Adjuvanted 50 MCG/0.5ML Intramuscular Suspension Reconstituted (Shingrix) Inject 0.5 mL into a large muscle now and repeat dose in 60 to 180 days 1 Each 1 3 Active Fluticasone Propionate 50 MCG/ACT Nasal Suspension (Flonase)Indications :Allergic rhinitis Administer 1 [place] into nostril in the morning. 48 mL 1 3 Active BD Pen Needle Short U/F 31G X 8 MM (Insulin Pen Needle)Indications:T ype 2 diabetes mellitus with hemoglobin A1c goal of less than 8.0% ([facility]) USE 5 TIMES DAILY WITH INSULIN DX E11.9 500 Each 3 3 Active linaCLOtide 290 MCG Oral CapsuleIndications:C hronic constipation DAILY 30 Capsule 5 3 Active Baclofen 10 MG Oral Tablet (Lioresal)Indication s:Cervical stenosis of spinal canal take 1 tablet by mouth four times a day if needed for muscle spasm 180 Tablet 3 4 Active Pantoprazole Sodium 40 MG Oral Tablet Delayed Release (Protonix) take 1 tablet by mouth every morning 90 Tablet 3 4 Active Montelukast Sodium 10 MG Oral Tablet (Singulair)Indicatio ns:Mild persistent asthma without complication take 1 tablet by mouth at bedtime 90 Tablet 3 4 Active Nitroglycerin 0.4 MG Sublingual Tablet Sublingual (Nitrostat)Indicatio ns:Coronary atherosclerosis place 1 tablet under the tongue if needed every 5 minutes for chest pain for 3 doses IF NO RELIEF AFTER THIRD DOSE CALL 911. 25 Tablet 3 4 Active Loratadine 10 MG Oral Tablet (Claritin)Indication s:Seasonal allergic rhinitis due to pollen take 1 tablet by mouth every morning 90 Tablet 3 4 Active Accu-Chek Guide In Vitro Strip (Glucose Blood)Indications:Ty pe 2 diabetes mellitus with hemoglobin A1c goal of less than 8.0% ([facility]),Diabetes mellitus, type II, insulin dependent (HCC) USE TEST STRIPS TO TEST BLOOD SUGARS THREE TIMES DAILY 300 Strip 2 4 Active DULoxetine HCl 30 MG Oral Capsule Delayed Release Particles (Cymbalta)Indication s:Moderate episode of recurrent major depressive disorder (HCC) take 1 capsule by mouth every morning 90 Capsule 1 4 Active FreeStyle Test In Vitro Strip (Glucose Blood)Indications:Ty pe 2 diabetes mellitus with hemoglobin A1c goal of less than 8.0% ([facility]) Use to test 3 times a day. E11.9 300 Strip 2 4 Active traZODone HCl 50 MG Oral Tablet (Desyrel)Indications :Moderate episode of recurrent major depressive disorder (HCC) take 1 tablet by mouth BEFORE BEDTIME 90 Tablet 1 4 Active Pregabalin 100 MG Oral Capsule (Lyrica)Indications: Cervicalgia take 1 capsule by mouth every morning and 1 capsule by mouth AT NOON and 1 capsule by mouth BEFORE BEDTIME 90 Capsule 2 4 Active Potassium Chloride Karis ER 10 MEQ Oral Tablet Extended ReleaseIndications:H ypopotassemia take 1 tablet by mouth every morning 90 Tablet 1 4 Active Insulin Glargine Solostar 100 UNIT/ML Subcutaneous Solution Pen-injector (Basaglar KwikPen)Indications: Type 2 diabetes mellitus with hemoglobin A1c goal of less than 8.0% ([facility]),Diabetes mellitus, type II, insulin dependent ([facility]) inject 20 units subcutaneously every morning and inject 10 units every NIGHT 30 mL 4 Active Trelegy Ellipta 100-62.5-25 MCG/ACT Aerosol Powder Breath Activated (Fluticasone-Umeclid inium-Vilanterol) inhale 1 puff by mouth and INTO THE LUNGS every morning 60 Blister Dosing Unit 5 4 Active Albuterol Sulfate HFA 108 (90 Base) MCG/ACT Inhalation Aerosol SolutionIndications: Mild persistent asthma with acute exacerbation,COPD, group B, by GOLD 2017 classification ([facility]) inhale 1 TO 2 puffs by mouth and INTO THE LUNGS every 2 hours if needed 8.5 g 5 4 Active NovoLOG FlexPen 100 UNIT/ML Subcutaneous Solution Pen-injector (insulin aspart)Indications:T ype 2 diabetes mellitus with hemoglobin A1c goal of less than 8.0% ([facility]) inject 20 units with breakfast 10 units with SNACK and 10 units with dinner (CF:1:40 OVER 160) 45 mL 3 4 Active Hydroxychloroquine Sulfate 200 MG Oral Tablet (Plaquenil)Indicatio ns:HLA B27 (HLA B27 positive) take 2 tablets by mouth at bedtime 180 Tablet 1 4 Active HYDROcodone-Acetamin ophen 10-325 MG Oral TabletIndications:Ce rvical stenosis of spinal canal,Lumbar degenerative disc disease Take 2.5 Tablets by mouth daily as needed for Pain, Severe. Take 0.5-1 tab every 8 hours as needed for severe pain. Max dose of 2.5 tablets per day. 75 Tablet 4 Active LORazepam 0.5 MG Oral Tablet (Ativan)Indications: PTSD (post-traumatic stress disorder) take 1 tablet by mouth twice a day if needed for anxiety 60 Tablet 4 Active LORazepam 0.5 MG Oral Tablet (Ativan)Indications: PTSD (post-traumatic stress disorder) Take 1 Tablet by mouth 2 times a day as needed for Anxiety. 60 Tablet 4 Active Warfarin Sodium 5 MG Oral Tablet (Coumadin)Indication s:Chronic atrial fibrillation (HCC) Take 1-2 Tablets by mouth every evening. Or take as instructed by the [facility]. 180 Tablet 1 4 Active Repatha SureClick 140 MG/ML Subcutaneous Solution Auto-injector Inject under the skin. 4 Active Clopidogrel Bisulfate 75 MG Oral Tablet (pLAVix) Take 1 Tablet by mouth in the morning. 4 07/10/19 25 Active predniSONE 5 MG Oral Tablet (Deltasone)Indicatio ns:[facility]DC current use of systemic steroids Take 1 Tablet by mouth in the morning. 30 Tablet 11 4 Active sulfaSALAzine 500 MG Oral Tablet (Azulfidine) Take 2 Tablets by mouth in the morning and 2 Tablets before bedtime. 120 Tablet 5 4 Active Hospital, Clinic, or Other Facility Administered Medication [...] as of this encounter (statuses as of 12/25/2023) Active Problems Problem Noted Date Diagnosed Date Moderate episode of recurrent major depressive d isorder 10/16/2023 Reactive arthritis of multiple sites 07/05/2023 Food insecurity 07/03/2023 Overview: Per [facility] Protocol Diabetic peripheral neuropathy 09/13/2022 [facility] current use of systemic steroids 06/20 History [...] situ 11/23/2018 Chronic atrial fibrillation 08/24/2018 Overview: [facility] Dr Armenta Diabetes mellitus, type [...] CORONARY ATHEROSCLEROSIS OF UNSPECIFIED TYPE OF VESSEL, [place] OR GRAFT Peptic ulcer Asthma, mild persistent HLA B27 (HLA B27 positive) documented as of this encounter (statuses as of 12/25/2023) Resolved Problems Problem Noted Date Diagnosed Date [...] as of this encounter (statuses as of 12/25/2023) Immunizations Name Administration Dates Next Due COVID-19 mRNA, LNP-s, No Pre serve, 2-Dose Series (Moderna) 10/23/2020,06/23/2020 H1N1 2009 Influenza, IM 04/06/2009 Pneumococcal Conjugate Vacci ne, 20-valent (Fojtdvv26) 11/19/2021 Pneumococcal Polysaccharide PPV23 (Pneumovax) 02/09/2007 Seasonal Influenza, PF, 6 M & above, IM , (FluLaval or Fluzone) 01/02/2019,02/16/2018 Seasonal Influenza, QUAD, wi th Preserv, 6 mons & Above, 0.5 mL, IM 02/02/2021 Seasonal Influenza, Quadriva lent, No Preserve, IM 01/14/2020,01/28/2016 Seasonal Influenza, Trivalen t, (IIV3), with Preserv, (Fluzone) 02/04/2014,12/13/2012,12/15/2011,01/06,01/21/2010,02/18/2009,04/24/2008 ,02/09/2007 TDAP (age 10 and older)(Boostrix) 02/16/2018 TDAP, Age 7 and older, IM (Adacel) 08/13/2007 documented as of this encounter Social History Tobacco Use Types Packs/Day Years Used Date Smoking Tobacco: Every Day Cigarettes 0.5 51.8 Started: 1972 Pipe Cigars Smokeless Tobacco: Never [...] No 06/07/2023 Does the household have a [facility] source of income? (Household - for ages [...] on file documented as of this encounter Progress Notes * Richard Pineda CPhT - 12/25/2023 12:38 PM EDT Contacts Contact Date/Time Type Contact Phone/Fax 12/25/2023 12:37 PM EDT Phone (Outgoing) Alan Pereira Jr. (Self) [phone] (M) Left Message Subjective Advised patient to contact Anticoagulation Clinic if any unusual bruising or bleeding, recent illness, changes in medication, or questions/concerns. PT/INR results, Coumadin dose instructions, and next PT/INR date communicated as noted by Pharmacist: Yes Richard Pineda CPhT 12/25/2023, 12:38 PM * Antonia Henderson [facility] - 12/25/2023 10:21 AM EDT Coumadin Clinic (region specific) Objective Current Warfarin Dose As of 12/25/2023 Warfarin maintenance plan: 5 mg (5 mg x 1) every Mon, Tracey; 10 mg (5 mg x 2) all other days INR Result As of 12/25/2023 INR goal: 2.0-3.0 INR used for dosin.2 (12/22/2023) Assessment & Plan Warfarin Plan As of 12/25/2023 Full warfarin instructions: 5 mg every Mon, Tracey; 10 mg all other days No change documented: Antonia Henderson RPh Next INR check: 01/12/2024 Repeat PT/INR in 3 week(s) Weekly dose: not changed Additional Dosing Information: Description [facility] to contact patient with dose instructions as noted. Antonia Henderson RPh 12/25/2023, 10:28 AM documented in this encounter Plan of Treatment Upcoming Encounters Date Type Department Care Team (Late st Contact Info) Description 01/19/2024 6:10 PM EDT Pharmacy Pharmacy, [address] [place] [address] [facility] [address] [place] [phone] 01/22/2024 2:00 PM EDT Office [address] Medicine [address] [phone] Brigitte Byrd MD [address] [place] [address] [place] [phone] 02/13/2024 12:20 PM EST Office Visit Pulmonary Medicine, [facility] [address] [facility] [place] [id number] Miguel Munoz [facility] [address] [facility] [address] Scheduled Procedures Name Priority Associated Diagnoses Date/Ti me COLONOSCOPY FLEXIBLE PROXIMAL DIAGNOSTIC Recall History of colon polyps Health Maintenance Due Date Last Done Comments DISCUSS TOBACCO CESSATION (REFER TO SMARTSET #[id number]) 1955 Zoster Vaccines (1 of 2) 02/22/1975 [...] 01/14/2020, Additional history exists HbA1c 04/18/2024 10/17/2023, 12, 09/14/2022, Additional history exists Albumin/Creatinine Ratio 10/16/2024 [...] as of this encounter Visit Diagnoses Diagnosis Chronic atrial fibrillation (HCC)- Primary Atrial fibrillation documented in this encounter Advance Directives * [...] Directives occurred with: Not Discussed Care Teams Dependency Counselor Relationship Specialty Start Date End Date Brigitte Bryd MD [address] [place] [address] [place] [id number] PCP - General Family Medicine 11/23/18 documented as of this encounter
--- OUTSIDE RECORDS SUMMARY | 2024-01-09 00:05 | External Medical Summary | Summary of Care ---
Author Name Unknown Organization [facility] Address [address] [facility] [place] [address] Phone [phone] Care Team Providers Care Laborer Powerhouse Name Role Phone Brigitte Byrd MD Primary Care Prov ider Reason for Visit * Reason Onset Date Comments Medication Refill 11/30/2023 Encounter Details Date Type Department Care Team (Late st Contact Info) Description 11/30/2023 Refill Family Medicine [address] [phone] Brigitte Byrd MD [address] [place], [place] [address] [address] Cervical stenosis of spinal canal; Lumbar degenerative disc disease Allergies Active Allergy Reactions Criticality Noted Date Comments Diclofenac Resin Rash Low 11/15/1999 Voltaren Atorvastatin Calcium Muscle pain 11/23/2018 Rosuvastatin Muscle pain 11/23/2018 documented as of this encounter (statuses as of 12/29/2023) Medications Medication Sig Dispensed Refills Start Date End Date Status MULTIVITAMINS PO TABS one tab daily Active Insulin Syringe-Needle U-100 30G X 1/2" 0.3 ML MISCIndications:DM type 2 nursing care encounter (HCC) Use as directed. 1 Box 11 01/06/20 15 Active isosorbide dinitrate (ISORDIL) 10 MG Tablet Take 1 Tablet by mouth in the morning. 08/25/19 19 Active furosemide (LASIX) 20 MG Tablet Take 1 Tablet by mouth in the morning. Active magnesium citrate solutionIndication s:Drug-induced constipation Take 120 mL by mouth daily as needed for Constipation. for severe constipation. 240 mL 1 12/27/19 19 Active polyethylene glycol 3350 (MIRALAX) 255 gram powderIndications: Drug-induced constipation Dissolve one heaping tablespoon in 8 ounces of water or juice - one dose per day as needed for severe constipation 1 Bottle 2 01/03/20 19 Active Aspirin Low Dose 81 MG Oral Tablet Chewable Take 1 Tablet by mouth in the morning. 08/05/19 21 Active Ipratropium-[place] rol 0.5-2.5 (3) MG/3ML Inhalation Solution (Duoneb)Indication s:COPD exacerbation (HCC) INHALE 1 VIAL VIA NEBILIZER TWICE A DAY AND EVERY 6 HOURS IN BETWEEN NEEDED 270 mL 5 10/14/19 21 Active Accu-Chek Guide w/Device KitIndications:Typ e 2 diabetes mellitus with hemoglobin A1c goal of less than 8.0% ([facility]) Use as directed . Test 3 times daily. Pt is on insulin Dx E11.9 1 Kit 04/30/19 22 Active Atenolol 25 MG Oral Tablet (Tenormin)Indicati ons:Atherosclerosi s of [place] coronary artery of [place] heart without angina pectoris take 1/2 tablet by mouth every evening if needed for PALPITATIONS 45 Tablet 3 09/03/19 23 Active Zoster Vac Recomb Adjuvanted 50 MCG/0.5ML Intramuscular Suspension Reconstituted (Shingrix) Inject 0.5 mL into a large muscle now and repeat dose in 60 to 180 days 1 Each 1 09/14/19 23 Active Fluticasone Propionate 50 MCG/ACT Nasal Suspension (Flonase)Indicatio ns:Allergic rhinitis Administer 1 [place] into nostril in the morning. 48 mL 1 12/04/19 23 Active BD Pen Needle Short U/F 31G X 8 MM (Insulin Pen Needle)Indications :Type 2 diabetes mellitus with hemoglobin A1c goal of less than 8.0% (HCC) USE 5 TIMES DAILY WITH INSULIN DX E11.9 500 Each 3 12/06/19 23 Active linaCLOtide 290 MCG Oral CapsuleIndications :Chronic constipation DAILY 30 Capsule 5 02/29/20 23 Active Baclofen 10 MG Oral Tablet (Lioresal)Indicati ons:Cervical stenosis of spinal canal take 1 tablet by mouth four times a day if needed for muscle spasm 180 Tablet 3 03/31/19 24 Active Pantoprazole Sodium 40 MG Oral Tablet Delayed Release (Protonix) take 1 tablet by mouth every morning 90 Tablet 3 04/04/19 24 Active Montelukast Sodium 10 MG Oral Tablet (Singulair)Indicat ions:Mild persistent asthma without complication take 1 tablet by mouth at bedtime 90 Tablet 3 05/01/19 24 Active Nitroglycerin 0.4 MG Sublingual Tablet Sublingual (Nitrostat)Indicat ions:Coronary atherosclerosis place 1 tablet under the tongue if needed every 5 minutes for chest pain for 3 doses IF NO RELIEF AFTER THIRD DOSE CALL 911. 25 Tablet 3 05/03/19 24 Active Loratadine 10 MG Oral Tablet (Claritin)Indicati ons:Seasonal allergic rhinitis due to pollen take 1 tablet by mouth every morning 90 Tablet 3 05/13/19 24 Active Accu-Chek Guide In Vitro Strip (Glucose Blood)Indications: Type 2 diabetes mellitus with hemoglobin A1c goal of less than 8.0% ([facility]),Diabetes mellitus, type II, insulin dependent ([facility]) USE TEST STRIPS TO TEST BLOOD SUGARS THREE TIMES DAILY 300 Strip 2 05/25/19 24 Active DULoxetine HCl 30 MG Oral Capsule Delayed Release Particles (Cymbalta)Indicati ons:Moderate episode of recurrent major depressive disorder (HCC) take 1 capsule by mouth every morning 90 Capsule 1 07/05/19 24 Active FreeStyle Test In Vitro Strip (Glucose Blood)Indications: Type 2 diabetes mellitus with hemoglobin A1c goal of less than 8.0% ([facility]) Use to test 3 times a day. E11.9 300 Strip 2 07/21/19 24 Active traZODone HCl 50 MG Oral Tablet (Desyrel)Indicatio ns:Moderate episode of recurrent major depressive disorder (HCC) take 1 tablet by mouth BEFORE BEDTIME 90 Tablet 1 08/17/19 24 Active Pregabalin 100 MG Oral Capsule (Lyrica)Indication s:Cervicalgia take 1 capsule by mouth every morning and 1 capsule by mouth AT NOON and 1 capsule by mouth BEFORE BEDTIME 90 Capsule 2 08/17/19 24 Active Potassium Chloride Karis ER 10 MEQ Oral Tablet Extended ReleaseIndications :Hypopotassemia take 1 tablet by mouth every morning 90 Tablet 1 08/29/19 24 Active Insulin Glargine Solostar 100 UNIT/ML Subcutaneous Solution Pen-injector (Basaglar KwikPen)Indication s:Type 2 diabetes mellitus with hemoglobin A1c goal of less than 8.0% ([facility]),Diabetes mellitus, type II, insulin dependent ([facility]) inject 20 units subcutaneously every morning and inject 10 units every NIGHT 30 mL 09/29/19 24 Active Trelegy Ellipta 100-62.5-25 MCG/ACT Aerosol Powder Breath Activated (Fluticasone-Umecl idinium-Vilanterol ) inhale 1 puff by mouth and INTO THE LUNGS every morning 60 Blister Dosing Unit 5 10/11/19 24 Active Albuterol Sulfate HFA 108 (90 Base) MCG/ACT Inhalation Aerosol SolutionIndication s:Mild persistent asthma with acute exacerbation,COPD, group B, by GOLD 2017 classification ([facility]) inhale 1 TO 2 puffs by mouth and INTO THE LUNGS every 2 hours if needed 8.5 g 5 10/30/19 24 Active NovoLOG FlexPen 100 UNIT/ML Subcutaneous Solution Pen-injector (insulin aspart)Indications :Type 2 diabetes mellitus with hemoglobin A1c goal of less than 8.0% ([facility]) inject 20 units with breakfast 10 units with SNACK and 10 units with dinner (CF:1:40 OVER 160) 45 mL 3 11/10/19 24 Active Hydroxychloroquine Sulfate 200 MG Oral Tablet (Plaquenil)Indicat ions:HLA B27 (HLA B27 positive) take 2 tablets by mouth at bedtime 180 Tablet 1 11/29/19 24 Active HYDROcodone-Acetam inophen 10-325 MG Oral TabletIndications: Cervical stenosis of spinal canal,Lumbar degenerative disc disease Take 2.5 Tablets by mouth daily as needed for Pain, Severe. Take 0.5-1 tab every 8 hours as needed for severe pain. Max dose of 2.5 tablets per day. 75 Tablet 12/04/19 24 Active Pylera 140-125-125 MG Oral Capsule (Bis Dykcvw-Hrgfjirw-Dw tracyc) 3 capsules 4 times/day x 10 days 120 Capsule 05/05/19 22 024 Discontinued(Mo dication List Clean Up) Warfarin Sodium 5 MG Oral Tablet (Coumadin)Indicati ons:Chronic atrial fibrillation (HCC) Take 1-2 Tablets by mouth every evening. Or take as instructed by the [facility]. Due for INR. 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 30 Tablet 1 10/16/19 24 024 Discontinued(Re fill) HYDROcodone-Acetam inophen 10-325 MG Oral TabletIndications: Cervical stenosis of spinal canal,Lumbar degenerative disc disease Take 2.5 Tablets by mouth daily as needed for Pain, Severe. Take 0.5-1 tab every 8 hours as needed for severe pain. Max dose of 2.5 tablets per day. 75 Tablet 10/31/19 24 024 Discontinued(Re fill) LORazepam 0.5 MG Oral Tablet (Ativan)Indication s:PTSD (post-traumatic stress disorder) Take 1 Tablet by mouth 2 times a day as needed for Anxiety. 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 06/20 History [...] situ 11/23/2018 Chronic atrial fibrillation 08/24/2018 Overview: [facility] Dr Armenta Diabetes mellitus, type [...] CORONARY ATHEROSCLEROSIS OF UNSPECIFIED TYPE OF VESSEL, [place] OR GRAFT Peptic ulcer Asthma, mild persistent HLA B27 (HLA B27 positive) documented as of this encounter (statuses as of 12/29/2023) Resolved Problems Problem Noted Date Diagnosed Date [...] as of this encounter (statuses as of 12/29/2023) Immunizations Name Administration Dates Next Due COVID-19 mRNA, LNP-s, No Pre serve, 2-Dose Series (Moderna) 10/23/2020,06/23/2020 H1N1 2009 Influenza, IM 04/06/2009 Pneumococcal Conjugate Vacci ne, 20-valent ([id number]) 11/19/2021 Pneumococcal Polysaccharide PPV23 (Pneumovax) 02/09/2007 Seasonal [...] 06/07/2023 Does the household have a re gular source of income? (Household - for ages [...] encounter Miscellaneous Notes * Telephone Encounter - Taiwo Aguilera OSA - 12/29/2023 10:43 AM EDT Pt is scheduled w/ [facility] 01/22/2024 * Telephone Encounter - Brigitte Byrd MD - 12/04/2023 8:39 AM EDT Please call the patient, he will need to schedule an appointment WITH [facility] for additional refills. * Telephone Encounter - Brigitte Byrd MD - 12/04/2023 8:39 AM EDT Signed Prescriptions: Disp Refills HYDROcodone-Acetaminophen 10-325 MG Oral T*75 Tab*0 Sig: Take 2.5 Tablets by mouth daily as needed for Pain, Severe. Take 0.5-1 tab every 8 hours as needed for severe pain. Max dose of 2.5 tablets per day. Authorizing Provider: BRIGITTE BYRD * [facility] 8[facility]40 AM EDT Pending Prescriptions: Disp Refills HYDROcodone-Acetaminophen 10-325 MG Oral T*75 Tab*0 Sig: Take 2.5 Tablets by mouth daily as needed for Pain, Severe. Take 0.5-1 tab every 8 hours as needed for severe pain. Max dose of 2.5 tablets per day. * [facility]23 8:38 AM EDT I have reviewed the patients controlled substance dispensing history in the Prescription Drug Monitoring Program in compliance with the [facility] regulations before prescribing a controlled substance. PDMP checked on 12/02/2023. Pending Prescriptions: Disp Refills HYDROcodone-Acetaminophen 10-325 MG Oral *75 Tab*0 Sig: Take 2.5 Tablets by mouth daily as needed for Pain, Severe. Take 0.5-1 tab every 8 hours as needed for severe pain. Max dose of 2.5 tablets per day. Last Visit: 10/16/2023 (in office), 08/29/2023 (telemedicine) Next Visit: 01/22/2024 Date medication was last filled: 10/31/2023 Date medication is due for refill: 11/29/2023 Pharmacy: [facility] #[id number] [facility] Is this request for [...] Review. Please approve if appropriate. Thank you, Thomas Arana, MicahD Clinical Pharmacist [facility] ([facility]) [phone] 12/02/2023, 8:39 AM documented in this encounter Plan of Treatment Upcoming Encounters Date Type Department Care Team (Late st Contact Info) Description 01/15/2024 6:30 AM EDT [facility] Centralized Clinical Pharmacy Services, Corona Doss [address] [place] [address] [place] [address] [place] [address] 01/19/2024 6:10 PM EDT Pharmacy Pharmacy, [facility] [address] [place] [address] [facility] [address] [place] [address] 01/22/2024 2:00 PM EDT Office Visit Family Medicine [address] [phone] Brigitte Byrd MD [address] [place] [address] [place] [phone] 02/13/2024 12:20 PM EST Office Visit Pulmonary Medicine, [facility] [address] [place] [address] Miguel Munoz MD [address] [place] [id number] Scheduled Procedures Name Priority Associated Diagnoses Date/Ti me COLONOSCOPY FLEXIBLE PROXIMAL DIAGNOSTIC Recall History of colon polyps Health Maintenance Due Date Last Done Comments DISCUSS TOBACCO CESSATION (REFER TO SMARTSET #[id number]) 1955 Zoster Vaccines (1 of 2) 02/22/1975 [...] Directives occurred with: Not Discussed Care Teams Laborer Powerhouse Relationship Specialty Start Date End Date Brigitte Byrd MD [address] [place] [address] [place] [phone] PCP - General Family Medicine 11/23/18 documented as of this encounter
--- OUTSIDE RECORDS SUMMARY | 2024-01-09 00:05 | External Medical Summary | Summary of Care ---
Author Name Unknown Organization [facility] Address [address] [facility] [place] [address] Phone [phone] Care Team Providers Care Student Education Specialist Name Role Phone Brigitte Byrd MD Primary Care Prov ider Encounter Details Date Type Department Care Team (Late st Contact Info) Description 12/26/2023 Orders Only PATIENT PORTAL DO NOT DELETE THIS DEPT USED BY [place] [id number] Allergies Active Allergy Reactions Criticality Noted Date Comments Diclofenac Resin Rash Low 11/15/1999 Voltaren Atorvastatin Calcium Muscle pain 11/23/2018 Rosuvastatin Muscle pain 11/23/2018 documented as of this encounter (statuses as of 12/26/2023) Medications Medication Sig Dispensed Refills Start Date [...] hemoglobin A1c goal of less than 8.0% ([facility]) Use as directed . Test 3 times daily. Pt is on insulin Dx E11.9 1 Kit 2 Active Atenolol 25 MG Oral Tablet (Tenormin)Indication s:Atherosclerosis of [place] coronary artery of [place] heart without angina pectoris take 1/2 tablet by mouth every evening if needed for PALPITATIONS 45 Tablet 3 3 Active Zoster Vac Recomb Adjuvanted 50 MCG/0.5ML Intramuscular Suspension Reconstituted (Shingrix) Inject 0.5 mL into a large muscle now and repeat dose in 60 to 180 days 1 Each 1 3 Active Fluticasone Propionate 50 MCG/ACT Nasal Suspension (Flonase)Indications :Allergic rhinitis Administer 1 [place] into nostril in the morning. 48 mL 1 3 Active BD Pen Needle Short U/F 31G X 8 MM (Insulin Pen Needle)Indications:T ype 2 diabetes mellitus with hemoglobin A1c goal of less than 8.0% ([facility]) USE 5 TIMES DAILY WITH INSULIN DX [...] hemoglobin A1c goal of less than 8.0% ([facility]),Diabetes mellitus, type II, insulin dependent ([facility]) USE TEST STRIPS TO TEST BLOOD [...] hemoglobin A1c goal of less than 8.0% ([facility]) Use to test 3 times a [...] Solostar 100 UNIT/ML Subcutaneous Solution Pen-injector (Basaglar Harish)Indications: Type 2 diabetes mellitus with hemoglobin A1c goal of less than 8.0% ([facility]),Diabetes mellitus, type II, insulin dependent ([facility]) inject 20 units subcutaneously every morning and [...] exacerbation,COPD, group B, by GOLD 2017 classification ([facility]) inhale 1 TO 2 puffs by mouth and INTO THE LUNGS every 2 hours if needed 8.5 g 5 4 Active NovoLOG FlexPen 100 UNIT/ML Subcutaneous Solution Pen-injector (insulin aspart)Indications:T ype 2 diabetes mellitus with hemoglobin A1c goal of less than 8.0% ([facility]) inject 20 units with breakfast 10 [...] evening. Or take as instructed by the [facility]. 180 Tablet 1 4 Active Repatha SureClick 140 MG/ML Subcutaneous Solution Auto-injector Inject under the skin. 4 Active Clopidogrel Bisulfate 75 MG Oral Tablet (pLAVix) Take 1 Tablet by mouth in the morning. 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 current use of systemic steroids Take 1 [...] as of this encounter (statuses as of 12/26/2023) Active Problems Problem Noted Date Diagnosed Date Moderate episode of recurrent major depressive d isorder 10/16/2023 Reactive arthritis of multiple sites 07/05/2023 Food insecurity 07/03/2023 Overview: Per [facility] Protocol Diabetic peripheral neuropathy 09/13/2022 shelter current use of systemic steroids 06/20 History [...] situ 11/23/2018 Chronic atrial fibrillation 08/24/2018 Overview: [facility] Dr Armenta Diabetes mellitus, type [...] CORONARY ATHEROSCLEROSIS OF UNSPECIFIED TYPE OF VESSEL, [place] OR GRAFT Peptic ulcer Asthma, mild persistent HLA B27 (HLA B27 positive) documented as of this encounter (statuses as of 12/26/2023) Resolved Problems Problem Noted Date Diagnosed Date [...] 08/29/2017 Syncope 02/05/2013 03/10/2017 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 (Household - for ages [...] on file documented as of this encounter Plan of Treatment Upcoming Encounters Date Type Department Care Team (Late st Contact Info) Description 01/15/2024 6:30 AM EDT Anticoagulation [facility], Corona Doss [address] [place] [address] [place] [address] [place] [address] 01/19/2024 6:10 PM EDT Pharmacy Pharmacy, [address] [place] [address] [place] [address] [place] [address] 01/22/2024 2:00 PM EDT Office Visit Family Medicine [address] [place] [phone] Briigtte Byrd MD [address] [place] [address] [place] [address] 02/13/2024 12:20 PM EST Office Visit Pulmonary Medicine, [address] [place] [address] Miguel Munoz MD [address] [place] [phone] Scheduled Procedures Name Priority Associated Diagnoses Date/Ti [...] Not on filedocumented as of this encounter Advance Directives * Full Code [...] Directives occurred with: Not Discussed Care Teams Student Education Specialist Relationship Specialty Start Date End Date Brigitte Byrd MD [address] [place] [address] [place] [phone] PCP - General Family Medicine 11/23/18 documented as of this encounter
--- OUTSIDE RECORDS SUMMARY | 2024-01-09 00:05 | External Medical Summary | Summary of Care ---
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 Name Role Phone Brigitte Byrd MD Primary Care Prov ider Reason for Visit * Reason Comments Rheum Follow Up Recheck RA * Evaluate & Treat - Unlimited Visits (Within 10 days (routine)) - Authorized Specialty Diagnoses / Procedures Referred By Contbriana t Referred To Contact Rheumatology Diagnoses Reactive arthritis of multiple sites (HCC) Brigitte Byrd MD [address] [place] [address] [place] [id number] Referral ID Status Reason Start Date Expiration Date Visits Requested Visits Authorized [id number] Authorized Specialty Services Required 10/16/[phone] Encounter Details Date Type Department Care Team (Late st Contact Info) Description 12/22/2023 3:20 PM EDT Office Visit Rheumatology [address] [place] [phone] Demetrius Aj [facility] [address] [facility] [place] [address] Reactive arthritis of multiple sites (HCC)*; Lumbar degenerative disc disease; HLA B27 (HLA B27 positive); Encounter for long-term (current) use of medications; penitentiary current use of systemic steroids Allergies Active Allergy Reactions Criticality Noted Date Comments Diclofenac Resin Rash Low 11/15/1999 Voltaren Atorvastatin Calcium Muscle pain 11/23/2018 Rosuvastatin Muscle pain 11/23/2018 documented as of this encounter (statuses as of 12/22/2023) Medications Medication Sig Dispensed Refills Start Date [...] (3) MG/3ML Inhalation Solution (Duoneb)Indications :COPD exacerbation ([facility]) INHALE 1 VIAL VIA NEBILIZER TWICE A DAY AND EVERY 6 HOURS IN BETWEEN NEEDED 270 mL 5 1 Active Accu-Chek Guide w/Device KitIndications:Type 2 diabetes mellitus with hemoglobin A1c goal of less than 8.0% ([facility]) Use as directed . Test 3 times daily. Pt is on insulin Dx E11.9 1 Kit 2 Active Atenolol 25 MG Oral Tablet (Tenormin)Indicatio ns:Atherosclerosis of [place] coronary artery of [place] heart without angina pectoris take 1/2 tablet by mouth every evening if needed for PALPITATIONS 45 Tablet 3 3 Active Zoster Vac Recomb Adjuvanted 50 MCG/0.5ML Intramuscular Suspension Reconstituted (Shingrix) Inject 0.5 mL into a large muscle now and repeat dose in 60 to 180 days 1 Each 1 3 Active Fluticasone Propionate 50 MCG/ACT Nasal Suspension (Flonase)Indication s:Allergic rhinitis Administer 1 [place] into nostril in the morning. 48 mL 1 3 Active BD Pen Needle Short U/F 31G X 8 MM (Insulin Pen Needle)Indications: Type 2 diabetes mellitus with hemoglobin A1c goal of less than 8.0% ([facility]) USE 5 TIMES DAILY WITH INSULIN DX [...] (HCC),Diabetes mellitus, type II, insulin dependent (HCC) USE [...] goal of less than 8.0% (HCC) Use to test 3 times a day. E11.9 300 Strip 2 4 Active traZODone HCl 50 MG Oral Tablet (Desyrel)Indication s:Moderate episode of recurrent major depressive disorder ([facility]) take 1 tablet by mouth BEFORE BEDTIME [...] hemoglobin A1c goal of less than 8.0% ([facility]),Diabetes mellitus, type II, insulin dependent ([facility]) inject 20 units subcutaneously every [...] exacerbation,COPD, group B, by GOLD 2017 classification ([facility]) inhale 1 TO 2 puffs by mouth and INTO THE LUNGS every 2 hours if needed 8.5 g 5 4 Active NovoLOG FlexPen 100 UNIT/ML Subcutaneous Solution Pen-injector (insulin aspart)Indications: Type 2 diabetes mellitus with hemoglobin A1c goal of less than 8.0% ([facility]) inject 20 units with breakfast [...] evening. Or take as instructed by the [facility]. 180 Tablet 1 4 Active Repatha SureClick 140 MG/ML Subcutaneous Solution Auto-injector Inject under the skin. 4 Active Clopidogrel Bisulfate 75 MG Oral Tablet (pLAVix) Take 1 Tablet by mouth in the morning. 4 07/10/19 25 Active predniSONE 5 MG Oral Tablet (Deltasone)Indicati ons:[facility]it[facility]iary current use of systemic steroids Take 1 Tablet by mouth in the morning. 30 Tablet 11 4 Active sulfaSALAzine 500 MG Oral Tablet (Azulfidine) Take 2 Tablets by mouth in the morning and 2 Tablets before bedtime. 120 Tablet 5 4 Active predniSONE 5 MG Oral Tablet (Deltasone)Indicati ons:[facility]iary current use of systemic steroids Take 1 Tablet by mouth in the morning. 30 Tablet 1 4 12/22/19 24 Discontinu ed(Refill) Hospital, Clinic, or Other [...] as of this encounter (statuses as of 12/22/2023) Active Problems Problem Noted Date Diagnosed Date Moderate episode of recurrent major depressive d isorder 10/16/2023 Reactive arthritis of multiple sites 07/05/2023 Food insecurity 07/03/2023 Overview: Per [facility] Protocol Diabetic peripheral neuropathy 09/13/2022 penitentiary current use of systemic steroids 06/20 History [...] situ 11/23/2018 Chronic atrial fibrillation 08/24/2018 Overview: [facility] Dr Armenta Diabetes mellitus, type [...] CORONARY ATHEROSCLEROSIS OF UNSPECIFIED TYPE OF VESSEL, [place] OR GRAFT Peptic ulcer Asthma, mild persistent HLA B27 (HLA B27 positive) documented as of this encounter (statuses as of 12/22/2023) Resolved Problems Problem Noted Date Diagnosed Date [...] as of this encounter (statuses as of 12/22/2023) Immunizations Name Administration Dates Next Due COVID-19 mRNA, LNP-s, No Pre serve, 2-Dose Series (Moderna) 10/23/2020,06/23/2020 H1N1 2008 Influenza, IM 04/06/2009 Pneumococcal Conjugate Vacci ne, 20-valent ([id number]) 11/19/2021 Pneumococcal Polysaccharide PPV23 (Pneumovax) 02/09/2007 Seasonal [...] Started: 1972 Pipe Cigars Smokeless Tobacco: Never Tobacco Cessation:Ready to Q uit: Not Asked; Counseling Given: Not Answered Comments:10 cpd. Smoker. 11/28/23. Alcohol Use Standard Drinks/Week Comments Yes 0 [...] on file documented as of this encounter Last Filed Vital Signs Vital Sign Reading Time Taken Comments Blood Pressure - - Pulse - - Temperature 36.4 C (97.5 F) 12/22/2023 3:19 PM ED T Respiratory Rate - - Oxygen Saturation - - Inhaled Oxygen Concentration - - Weight 99.3 kg (219 lb) 12/22/2023 3:19 PM EDT Height - - Body Mass Index 30.54 11/28/2023 12:46 PM EDT documented in this encounter Patient Instructions * Patient Instructions* Demetrius Aj MD - 12/22/2023 3:37 PM EDT Sulfasalazine (Azulfidine) Sulfasalazine is a medication used to treat pain and swelling in rheumatoid arthritis, ankylosing spondylitis, psoriatic arthritis. It may also prevent damage to joints and may reduce the risk of shelter loss of function DOSING Sulfasalazine is typically started at a lower dose 500-1000 milligram daily and may be increased toa higher dose. It should be taken with food and a full glass of water to prevent stomach upset. It usually takes between 1 and 3 months to notice any improvement in symptoms after starting the medication. SIDE EFFECTS In general, most patients can take sulfasalazine with few side effects. The most common side effects are nausea and abdominal discomfort. Less common side effects include skin rash, headache, and a higher risk for infections. Even less commonly, mouth sores, itching. This medicine can occasionally affect the liver. Sulfasalazine also increases the risk of reduced blood counts in people born without an enzyme called Pjxnigo-5-xgpznwmsi dehydrogenase. Blood tests will be done to monitor for bloodcounts and liver problems. This medication may make you more sensitive to the sun. Tama colored urine and even orange skin can occur. It is usually harmless and goes away after medication is stopped POINTS TO REMEMBER Tell your doctor if you have ever had any unusual or allergic reaction to any other sulfa medicinesas well as medicines that are chemically related to sulfa drugs. Use sunscreen (SPF 15 or higher) when outdoors and avoid prolonged exposure to sunlight, tanning booths, and sunlamps to avoid burning or skin damage. : Sulfasalazine treatment is generally considered to be safe during , but usage should be discussed with your physician if you are planning to become . This medication should not be taken by mothers who are . In men, sulfasalazine may lower sperm count, although this should improve after stopping the medication. Vaccination: Live vaccinations (including live influenza and shingles vaccine) should be avoided while taking this medication. Be sure to discuss with your doctor before receiving any vaccines. We generally suggest that patients receive a yearly injectable flu (and H1N1) vaccine. Pneumonia vaccine is recommended twice (5 years apart). Surgery: Sulfasalazine may be temporarily stopped at least 1 week before and 2 week after surgery. Therefore, please talk with your Rheumatology doctor or provider before you have surgery. Infection: In some cases, sulfasalazine may reduce the number of disease- fighting white blood cellsin the body, leading to a higher risk for infections. Drug Interactions: Be sure to tell your doctor about all of the medications you are taking, which may include wptf-znq-xqwmjsj drugs and natural remedies. Medications that may interfere with Sulfasalazine include warfarin (Coumadin), cyclosporine, digoxin. Sulfasalazine increases the risk for liver injury if given with isoniazid (INH) for tuberculosis. It may increase the risk for low blood sugar in patients takingcertain diabetes drugs (sulfonylureas such as glimepiride (Amaryl), glyburide (Diabeta, Micronase, Glynase), glipizide (Glucotrol)). Adopted from [employer] Patient Education Resources Reviewed 2010 by the [facility] Department of Rheumatology Best Practice Committee documented in this encounter Progress Notes * Demetrius Aj MD - 12/22/2023 3:23 PM EDT Subjective: Patient seen today for further follow up evaluation of osteoarthritis, reactive arthritis, HLA B27+. Since the last visit he reports that over the 2 weeks he has been dealing with more joint pains, muscle weakness. He reports more pain in his knees and hips. He is on chronic narcotics because of his neck and back. Pain can be migratory - can involve hands, elbows. No swelling. Feels like he has lost muscle mass. Pain today is an 8, normal it is 3 or 4. He reports several months ago was having some [place], back pain. Was seen by cardiology and needed 3 more stents. He still gets some thoracic back pain. Sometime uses nitro other times back pain resolves. No chest pains. No night sweats, weight loss, sicca, rashes. + neuropathy in his legs. He is on lyrica 100mg BID not TID. Is also on cymbalta 30mg daily. He is still on plaquenil. He is on pred 5mg daily. Reports that he has tried tapering off steroids in his not gone well. Also after last visit he tried stopping Plaquenil and symptoms worsen. Wondering about another agent. Does have mildly elevated LFTs. Musculoskeletal ROS: . Abnormal: joint pain, back pain, and neck pain, weak muscles . AM stiffness (hours): not much stiffness . Pain scale (0-10): 8 Other ROS: . Constitutional: normal . Head normal . Eyes: normal . Ears, nose, throat, mouth: normal . Cardiovascular: see above . Respiratory: see above . Gastrointestinal: normal . Genitourinary: normal . Skin: normal . Neurologic: numbness All other ros reviewed and negative Social History: Social History Tobacco Use Smoking status: Every Day Current packs/day: 0.50 Average packs/day: 0.5 packs/day for 51.8 years (25.9 ttl pk-yrs) Types: Cigarettes, Pipe, Cigars Start date: 1971 Smokeless tobacco: Never Tobacco comments: 10 cpd. Smoker. 11/28/23. Substance Use Topics Alcohol use: Yes Alcohol/week: 0.0 standard drinks of alcohol Comment: rare alcohol use Vaping/E-Cigarette Use Vaping/E-Cigarette Use Never User Vaping/E-Cigarette Substances Vaping/E-Cigarette Devices Current Outpatient Medications Medication Sig Dispense Refill MULTIVITAMINS PO TABS one tab daily Insulin Syringe-Needle U-100 30G X 1/2" 0.3 ML MISC Use as directed. 1 Box 11 isosorbide dinitrate (ISORDIL) 10 MG Tablet Take 1 Tablet by mouth in the morning. furosemide (LASIX) 20 MG Tablet Take 1 Tablet by mouth in the morning. magnesium citrate solution Take 120 mL by mouth daily as needed for Constipation. for severe constipation. 240 mL 1 polyethylene glycol 3350 (MIRALAX) 255 gram powder Dissolve one heaping tablespoon in 8 ounces of water or juice - one dose per day as needed for severe constipation 1 Bottle 2 Aspirin Low Dose 81 MG Oral Tablet Chewable Take 1 Tablet by mouth in the morning. Ipratropium-Albuterol 0.5-2.5 (3) MG/3ML Inhalation Solution (Duoneb) INHALE 1 VIAL VIA NEBILIZER TWICE A DAY AND EVERY 6 HOURS IN BETWEEN NEEDED 270 mL 5 Accu-Chek Guide w/Device Kit Use as directed . Test 3 times daily. Pt is on insulin Dx E11.9 1 Kit 0 Atenolol 25 MG Oral Tablet (Tenormin) take 1/2 tablet by mouth every evening if needed for PALPITATIONS 45 Tablet 3 Zoster Vac Recomb Adjuvanted 50 MCG/0.5ML Intramuscular Suspension Reconstituted (Shingrix) Inject 0.5 mL into a large muscle now and repeat dose in 60 to 180 days 1 Each 1 Fluticasone Propionate 50 MCG/ACT Nasal Suspension (Flonase) Administer 1 [place] into nostril in themorning. 48 mL 1 BD Pen Needle Short U/F 31G X 8 MM (Insulin Pen Needle) USE 5 TIMES DAILY WITH INSULIN DX E11.9 500Each 3 linaCLOtide 290 MCG Oral Capsule DAILY 30 Capsule 5 Baclofen 10 MG Oral Tablet (Lioresal) take 1 tablet by mouth four times a day if needed for muscle spasm 180 Tablet 3 Pantoprazole Sodium 40 MG Oral Tablet Delayed Release (Protonix) take 1 tablet by mouth every morning 90 Tablet 3 Montelukast Sodium 10 MG Oral Tablet (Singulair) take 1 tablet by mouth at bedtime 90 Tablet 3 Nitroglycerin 0.4 MG Sublingual Tablet Sublingual (Nitrostat) place 1 tablet under the tongue if needed every 5 minutes for chest pain for 3 doses IF NO RELIEF AFTER THIRD DOSE CALL 911. 25 Tablet 3 Loratadine 10 MG Oral Tablet (Claritin) take 1 tablet by mouth every morning 90 Tablet 3 Accu-Chek Guide In Vitro Strip (Glucose Blood) USE TEST STRIPS TO TEST BLOOD SUGARS THREE TIMES DAILY 300 Strip 2 DULoxetine HCl 30 MG Oral Capsule Delayed Release Particles (Cymbalta) take 1 capsule by mouth every morning 90 Capsule 1 FreeStyle Test In Vitro Strip (Glucose Blood) Use to test 3 times a day. E11.9 300 Strip 2 traZODone HCl 50 MG Oral Tablet (Desyrel) take 1 tablet by mouth BEFORE BEDTIME 90 Tablet 1 Pregabalin 100 MG Oral Capsule (Lyrica) take 1 capsule by mouth every morning and 1 capsule by mouth AT NOON and 1 capsule by mouth BEFORE BEDTIME 90 Capsule 2 Potassium Chloride Karis ER 10 MEQ Oral Tablet Extended Release take 1 tablet by mouth every [id number] Tablet 1 Insulin Glargine Solostar 100 UNIT/ML Subcutaneous Solution Pen-injector (Basaglar KwikPen) inject 20 units subcutaneously every morning and inject 10 units every NIGHT 30 mL 0 Trelegy Ellipta 100-62.5-25 MCG/ACT Aerosol Powder Breath Activated (Yextlootcvj-Bmdkffcvbzxs-Slfasbwcvd) inhale 1 puff by mouth and INTO THE LUNGS every morning 60 Blister Dosing Unit 5 predniSONE 5 MG Oral Tablet (Deltasone) Take 1 Tablet by mouth in the morning. 30 Tablet 1 Albuterol Sulfate HFA 108 (90 Base) MCG/ACT Inhalation Aerosol Solution inhale 1 TO 2 puffs by mouth and INTO THE LUNGS every 2 hours if needed 8.5 g 5 NovoLOG FlexPen 100 UNIT/ML Subcutaneous Solution Pen-injector (insulin aspart) inject 20 units with breakfast 10 units with SNACK and 10 units with dinner (CF:1:40 OVER 160) 45 mL 3 Hydroxychloroquine Sulfate 200 MG Oral Tablet (Plaquenil) take 2 tablets by mouth at bedtime 180 Tablet 1 HYDROcodone-Acetaminophen 10-325 MG Oral Tablet Take 2.5 Tablets by mouth daily as needed for Pain,Severe. Take 0.5-1 tab every 8 hours as needed for severe pain. Max dose of 2.5 tablets per day. 75Tablet 0 LORazepam 0.5 MG Oral Tablet (Ativan) take 1 tablet by mouth twice a day if needed for anxiety 60 Tablet 0 LORazepam 0.5 MG Oral Tablet (Ativan) Take 1 Tablet by mouth 2 times a day as needed for Anxiety. 60 Tablet 0 Warfarin Sodium 5 MG Oral Tablet (Coumadin) Take 1-2 Tablets by mouth every evening. Or take as instructed by the [facility]. 180 Tablet 1 Repatha SureClick 140 MG/ML Subcutaneous Solution Auto-injector Inject under the skin. Clopidogrel Bisulfate 75 MG Oral Tablet (pLAVix) Take 1 Tablet by mouth in the morning. Current Facility-Administered Medications Medication Dose Route Frequency Provider Last Rate Last Admin Albuterol Sulfate (Proventil) (2.5 MG/3ML) 0.083% inhalation solution 2.5 mg 2.5 mg Nebulizer Once PRN Albuterol Sulfate (Proventil) (2.5 MG/3ML) 0.083% inhalation solution 2.5 mg 2.5 mg Nebulizer PRN Albuterol Sulfate (Proventil) (5 MG/ML) 0.5% *conc* inhalation solution 2.5 mg 2.5 mg Nebulizer PRN Physical Exam: Temp 36.4 C (97.5 F) (Infrared ) | Wt 99.3 kg (219 lb) | BMI 30.54 kg/m | BSA 2.23 m General: alert, no distress, and well nourished HENT: normocephalic, external ears normal, no mucosal erythema, no mucosal edema, moist mucosa, no oral ulcers Eye Exam: PERRL, EOMI, conjunctiva are pink and non-injected, sclera clear Neck: supple, no adenopathy, thyroid normal size, non-tender, without nodularity Lymph: no palpable lymphadenopathy Heart: regular rate & rhythm and no gallops Lungs: clear to auscultation , no rales, wheezes or rhonchi Abdomen: abdomen soft, non-tender, and normal bowel sounds Musculoskeletal Exam: No synovitis of the hands noted Mild deltoid and biceps weakness, normal hip flexor strength No knee effusions Assessment: (M02.39) Reactive arthritis of multiple sites (HCC) (primary encounter diagnosis) (M51.36) Lumbar degenerative disc disease (Z15.89) HLA B27 (HLA B27 positive) (Z79.899) Encounter for long-term (current) use of medications He is noting increasing joint pains and failed tapering off steroids and Plaquenil. At this point can not use leflunomide or methotrexate because of liver enzyme elevation so will try sulfasalazine 1st. If intolerant or does not work would look into biologics. Plan: 1. Continue prednisone and Plaquenil 2. Trial of sulfasalazine-gave patient information to review and discuss side effects 3. Labs in 1 month if tolerate sulfasalazine 4. Return to clinic in 3 months Demetrius Aj MD Department of Rheumatology documented in this encounter Nursing Notes * Dougie Blanchard LPN - 12/22/2023 3:15 PM EDT Chief Complaint Patient presents with Rheum Follow Up Recheck RA documented in this encounter Plan of Treatment Upcoming Encounters Date Type Department Care Team (Late st Contact Info) Description 12/25/2023 2:00 PM EDT PulmDiagnostic Pulmonary Function Lab, [facility] [address] [place] [address] [facility] [address] [place] [address] 12/29/2023 6:30 AM EDT Anticoagulation [facility], [address] [place] [phone] [place] [address] 01/19/2024 6:10 PM EDT Pharmacy Pharmacy, [facility] [address] [place] [address] [facility] [address] [place] [address] 01/22/2024 2:00 PM EDT Office Visit [address] [phone] Brigitte Byrd MD [address] [place] [address] [place] [address] 02/13/2024 12:20 PM EST Office Visit Pulmonary Medicine, [facility] [address] [place] [address] Miguel Munoz [facility] [address] [facility] [address] Scheduled Orders Name Type Priority Associated Diagnoses Orde r Schedule CBC WITH WBC DIFFERENTIAL Lab Routine 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 (HLA B27 positive) Encounter for long-term (current) use of medications Expected: 12/22/2023, Expires: 12/21/2024 COMPREHENSIVE METABOLIC PANEL Lab Routine 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 (HLA B27 positive) Encounter for long-term (current) use of medications Expected: 12/22/2023, Expires: 12/21/2024 G-6-PD, RBC Lab Routine 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 (HLA B27 positive) Encounter for long-term (current) use of medications Expected: 12/22/2023, Expires: 12/21/2024 Scheduled Procedures Name Priority Associated Diagnoses Date/Ti me COLONOSCOPY FLEXIBLE PROXIMAL DIAGNOSTIC Recall History of colon polyps Health Maintenance Due Date Last Done Comments DISCUSS TOBACCO CESSATION (REFER TO [facility]ARTSET #[id number]) 1955 Zoster Vaccines (1 of 2) 02/22/1975 [...] 01/14/2020, Additional history exists HbA1c 04/18/2024 10/17/2023, 12/2 , 09/14/2022, Additional history exists Albumin/Creatinine Ratio 10/16/2024 [...] as of this encounter Visit Diagnoses Diagnosis 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 Lumbar degenerative disc disease Degeneration of lumbar or lumbosacral intervertebral disc HLA B27 (HLA B27 positive) Genetic susceptibility to other disease Encounter for long-term (current) use of medications Encounter for long-term (current) use of other medications penitentiary current use of systemic steroids Encounter for long-term (current) use of steroids documented in this encounter Advance Directives * [...] Directives occurred with: Not Discussed Care Teams [employer] 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
--- OUTSIDE RECORDS SUMMARY | 2024-01-09 00:05 | External Medical Summary | Summary of Care ---
Author Name Unknown Organization [facility] Address [address] [facility] [address] Phone [phone] Care Team Providers Care Ink Printer Name Role Phone Brigitte Cm MD Primary Care Prov ider Reason for Visit * Reason Comments eRx-Medication Refill Encounter Details Date Type Department Care Team (Late st Contact Info) Description 12/31/2023 Refill Family Medicine [address] [phone] Brigitte Cm MD [address] [place], [place] [address] [address] Moderate episode of recurrent major depressive disorder (HCC) Allergies Active Allergy Reactions Criticality Noted Date Comments Diclofenac Resin Rash Low 11/15/1999 Voltaren Atorvastatin Calcium Muscle pain 11/23/2018 Rosuvastatin Muscle pain 11/23/2018 documented as of this encounter (statuses as of 01/02/2024) Medications Medication Sig Dispensed Refills Start Date [...] hemoglobin A1c goal of less than 8.0% ([facility]) Use as directed . Test 3 times daily. Pt is on insulin Dx E11.9 1 Kit 04/30/19 22 Active Atenolol 25 MG Oral Tablet (Tenormin)Indicatio ns:Atherosclerosis of [place] coronary artery of [place] heart without angina pectoris take 1/2 tablet [...] Nasal Suspension (Flonase)Indication s:Allergic rhinitis Administer 1 [place] into nostril in the morning. 48 mL [...] hemoglobin A1c goal of less than 8.0% ([facility]),Diabetes mellitus, type II, insulin dependent ([facility]) USE TEST STRIPS TO TEST BLOOD SUGARS THREE TIMES DAILY 300 Strip 2 05/25/19 24 Active FreeStyle Test In Vitro Strip (Glucose Blood)Indications:T ype 2 diabetes mellitus with hemoglobin A1c goal of less than 8.0% ([facility]) Use to test 3 times a day. [...] hemoglobin A1c goal of less than 8.0% ([facility]),Diabetes mellitus, type II, insulin dependent ([facility]) inject 20 units subcutaneously every morning and [...] exacerbation,COPD, group B, by GOLD 2017 classification ([facility]) inhale 1 TO 2 puffs by mouth and INTO THE LUNGS every 2 hours if needed 8.5 g 5 10/30/19 24 Active NovoLOG FlexPen 100 UNIT/ML Subcutaneous Solution Pen-injector (insulin aspart)Indications: Type 2 diabetes mellitus with hemoglobin A1c goal of less than 8.0% ([facility]) inject 20 units with breakfast 10 units with SNACK and 10 units with dinner (CF:1:40 OVER 160) 45 mL 3 11/10/19 24 Active Hydroxychloroquine Sulfate 200 MG Oral Tablet (Plaquenil)Indicati ons:HLA B27 (HLA B27 positive) take 2 tablets by mouth at bedtime 180 Tablet 1 11/29/19 24 Active HYDROcodone-Acetami nophen 10-325 MG Oral TabletIndications:C ervical stenosis of spinal canal,Lumbar degenerative disc disease Take 2.5 Tablets by mouth daily as needed for Pain, Severe. Take 0.5-1 tab every 8 hours as needed for severe pain. Max dose of 2.5 tablets per day. 75 Tablet 12/04/19 24 Active LORazepam 0.5 MG Oral Tablet (Ativan)Indications :PTSD (post-traumatic stress disorder) Take 1 Tablet by mouth 2 times a day as needed for Anxiety. 60 Tablet 12/05/19 24 Active Warfarin Sodium 5 MG Oral Tablet (Coumadin)Indicatio ns:Chronic atrial fibrillation ([facility]) Take 1-2 Tablets by mouth every evening. Or take as instructed by the [facility]. 180 Tablet 1 12/19/19 24 Active Repatha SureClick 140 MG/ML Subcutaneous Solution Auto-injector Inject under the skin. 06/27/19 24 Active Clopidogrel Bisulfate 75 MG Oral Tablet (pLAVix) Take 1 Tablet by mouth in the morning. 07/10/19 24 025 Active predniSONE 5 MG Oral Tablet (Deltasone)Indicati ons:roasterman current use of systemic steroids Take 1 [...] morning 90 Capsule 3 01/02/20 24 Active DULoxetine HCl 30 MG Oral Capsule Delayed Release Particles (Cymbalta)Indicatio ns:Moderate episode of recurrent major depressive disorder (HCC) take 1 capsule by mouth every morning 90 Capsule 1 07/05/19 24 024 Discontinued Hospital, Clinic, or Other [...] as of this encounter (statuses as of 01/02/2024) Active Problems Problem Noted Date Diagnosed Date Moderate episode of recurrent major depressive d isorder 10/16/2023 Reactive arthritis of multiple sites 07/05/2023 Food insecurity 07/03/2023 Overview: Per [facility] Protocol Diabetic peripheral neuropathy 09/13/2022 roasterman current use of systemic steroids 06/20 History [...] situ 11/23/2018 Chronic atrial fibrillation 08/24/2018 Overview: [facility] Dr Armenta Diabetes mellitus, type [...] CORONARY ATHEROSCLEROSIS OF UNSPECIFIED TYPE OF VESSEL, [place] OR GRAFT Peptic ulcer Asthma, mild persistent HLA B27 (HLA B27 positive) documented as of this encounter (statuses as of 01/02/2024) Resolved Problems Problem Noted Date Diagnosed Date [...] 08/29/2017 Syncope 02/05/2013 03/10/2017 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 (Household - for ages [...] encounter Miscellaneous Notes * Telephone Encounter - Sujata Lowery [facility] - 01/02/2024 9:33 AM EDTSigned Prescriptions: Disp Refills DULoxetine HCl 30 MG Oral Capsule Delayed *90 Cap*3 Sig: take 1 capsule by mouth every morningAuthorizing Provider: BRIGITTE CM User: SUJATA LOWERY documented in this encounter Plan of Treatment Upcoming Encounters Date Type Department Care Team (Late st Contact Info) Description 01/15/2024 6:30 AM EDT Anticoagulation Centralized Clinical Pharmacy Services, [facility] Doss [address] [place] [address] [place] [address] [facility], [address] [place] [address] 01/19/2024 6:10 PM EDT Pharmacy Pharmacy, [facility] [address] [facility] [place] [address] [facility] [address] [facility] [place] [address] 01/22/2024 2:00 PM EDT Office Visit Family Medicine [address] [place] [phone] Brigitte Cm MD [address] [place] [address] [place] [address] 02/13/2024 12:20 PM EST Office Visit Pulmonary Medicine, [address] [place] [address] Miguel Munoz MD [address] [facility] [address] Scheduled Procedures Name Priority Associated Diagnoses Date/Ti me COLONOSCOPY FLEXIBLE PROXIMAL DIAGNOSTIC Recall History of colon polyps Health Maintenance Due Date Last Done Comments DISCUSS TOBACCO CESSATION (REFER TO SMARTSET #4708) 1955 Zoster Vaccines (1 of 2) 02/22/1975 [...] 01/14/2020, Additional history exists HbA1c 04/18/2024 10/17/2023, 12/, 09/14/2022, Additional history exists Albumin/Creatinine Ratio 10/16/2024 [...] as of this encounter Visit Diagnoses Diagnosis Moderate episode of recurrent major depressive disorder (HCC) documented in this encounter Advance Directives * [...] Directives occurred with: Not Discussed Care Teams Ink Printer Relationship Specialty Start Date End Date Brigitte Cm MD [address] [place] [address] [place]elo [address] PCP - General Family Medicine 11/23/18 documented as of this encounter
--- OUTSIDE RECORDS SUMMARY | 2024-01-09 00:06 | External Medical Summary | Summary of Care ---
Author Name Unknown Organization [facility] Address [address] [facility] [place] [address] Phone [phone] Care Team Providers Care Space Operations Name Role Phone Brigitte Byrd MD Primary Care Prov ider Reason for Visit * Reason Comments Outpatient Testing Encounter Details Date Type Department Care Team (Late st Contact Info) Description 12/22/2023 3:50 PM EDT Laboratory Laboratory [address] [place] [phone] [place] [address] Chronic atrial fibrillation (HCC) Allergies Active Allergy Reactions Criticality Noted [...] ML MISCIndications:DM type 2 nursing care encounter ([facility]) Use as directed. [address] 5 [...] 25 MG Oral Tablet (Tenormin)Indication s:Atherosclerosis of [place] coronary artery of [place] heart without angina pectoris take 1/2 tablet by mouth every evening if needed for PALPITATIONS 45 Tablet 3 3 Active Zoster Vac Recomb Adjuvanted 50 MCG/0.5ML Intramuscular Suspension Reconstituted (Shingrix) Inject 0.5 mL into a large muscle now and repeat dose in 60 to 180 days 1 Each 1 3 Active Fluticasone Propionate 50 MCG/ACT Nasal Suspension (Flonase)Indications :Allergic rhinitis Administer 1 [place] into nostril in the morning. 48 mL [...] [facility]),Diabetes mellitus, type II, insulin dependent (HCC) USE [...] less than 8.0% ([facility]) Use to test 3 times [...] evening. Or take as instructed by the [facility] Coumadin [facility]. 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 132 [place] [address] [facility] [address] [place] [address] 12/29/2023 6:30 AM EDT Anticoagulation Centralized Clinical Pharmacy Services, [facility] [address] [place] [address] [place] [address] [place] [address] 01/19/2024 6:10 PM EDT Pharmacy Pharmacy, [facility] 132 [facility] [place] [address] [facility] [place] [address] 01/22/2024 2:00 PM EDT Office Visit Family Medicine [address] [place] [phone] Brigitte Byrd MD [address] [place] [address] [place] [address] 02/13/2024 12:20 PM EST Office Visit Pulmonary Medicine, [facility] [address] [place] [address] Miguel Munoz MD [address] [facility] [place] [address] Pending Results Name Type Priority Associated Diagnoses Date /Time PT INR Lab Routine Chronic atrial fibrillation (HCC) 12/22/2023 3:46 PM EDT Scheduled Procedures Name Priority Associated Diagnoses Date/Ti me COLONOSCOPY FLEXIBLE PROXIMAL DIAGNOSTIC Recall History of colon polyps Health Maintenance Due Date Last Done Comments DISCUSS TOBACCO CESSATION (REFER TO SMARTSET #329) 1955 Zoster Vaccines (1 of 2) 02/22/1975 [...] encounter Visit Diagnoses Diagnosis Chronic atrial fibrillation (HCC) Atrial fibrillation documented in this encounter Advance [...] Directives occurred with: Not Discussed Care Teams Space Operations Relationship Specialty Start Date End Date Brigitte Byrd MD [address] [place] [address] [place] [address] PCP - General Family Medicine 11/23/18 documented as of this encounter
--- OUTSIDE RECORDS SUMMARY | 2024-01-09 00:06 | External Medical Summary ---
Author Name Unknown Address Unknown Organization K01:[facility] - [address] [place] [address] Laboratory Report Ordering Provider Test Date Status MODE AVILA 12/22/2023 15:46:38 Final Standing order for pt/inr. < br/>Please draw pt/inr every 1 to 4 weeks as requested
Results to [facility] FAX results to [phone]

Warfarin Therapy
INR: 2.0-3.0 conventional anticoagulation
INR: 2.5-3.5 high intensity anticoagulation Observation Date Value Abnormality Reference (Units ) Status PT 12/22/2023 15:46:38 24.8 Above high normal 11 .6-15.2 (seconds) Final INR 12/22/2023 15:46:38 2.2 Above high normal 0. 8-1.2 Final Performing Location [facility] - [facility] [address] [place] [address]
--- OUTSIDE RECORDS SUMMARY | 2024-01-09 00:06 | External Medical Summary | Summary of Care ---
Author Name Unknown Organization [facility] Address [address] [facility] [place] [address] Phone [phone] Care Team Providers Care Microbiological Lab Technician Name Role Phone Brigitte Byrd MD Primary Care Prov ider Reason for Visit * Reason Comments Dosage Adjustment Via Phone (anticoag Cl inic) Encounter Details Date Type Department Care Team (Late st Contact Info) Description 11/29/2023 6:30 AM EDT Anticoagulation Centralized Clinical Pharmacy Services, [facility] [address] [place] [address] [place] M[place]olejo [address] [place] [address] Chronic atrial fibrillation (HCC)* Allergies Active Allergy Reactions Criticality Noted Date Comments Diclofenac Resin Rash Low 11/15/1999 Voltaren Atorvastatin Calcium Muscle pain 11/23/2018 Rosuvastatin Muscle pain 11/23/2018 documented as of this encounter (statuses as of 11/29/2023) Medications Medication Sig Dispensed Refills Start Date [...] severe constipation 1 Bottle 2 9 Active Additional Information Patient not taking.Reported on 10/16/2023 Aspirin Low Dose 81 MG Oral Tablet [...] hemoglobin A1c goal of less than 8.0% ([facility]) Use as directed . Test 3 times daily. Pt is on insulin Dx E11.9 1 Kit 2 Active Pylera 140-125-125 MG Oral Capsule (Bis Tapnda-Fxcwiypo-Rrsb acyc) 3 capsules 4 times/day x 10 days 120 Capsule 2 Active Additional Information Patient not taking.Reported on 10/16/2023 Atenolol 25 MG Oral Tablet (Tenormin)Indication s:Atherosclerosis of [place] coronary artery of [place] heart without angina pectoris take 1/2 tablet by mouth every evening if needed for PALPITATIONS 45 Tablet 3 3 Active Zoster Vac Recomb Adjuvanted 50 MCG/0.5ML Intramuscular Suspension Reconstituted (Shingrix) Inject 0.5 mL into a large muscle now and repeat dose in 60 to 180 days 1 Each 1 3 Active Additional Information Patient not taking.Reported on 10/16/2023 Fluticasone Propionate 50 MCG/ACT Nasal Suspension (Flonase)Indications :Allergic rhinitis Administer 1 [place] into nostril in the morning. 48 mL [...] every morning 90 Tablet 1 4 Active Warfarin Sodium 5 MG Oral Tablet (Coumadin)Indication s:Chronic atrial fibrillation (HCC) Take 1-2 Tablets by mouth every evening. Or take as instructed by the [facility] Cou[facility]in [facility]. Due for INR. 180 Tablet 4 Active Insulin Glargine Solostar 100 UNIT/ML Subcutaneous Solution Pen-injector (eBureauaglar Harish)Indications: Type 2 diabetes mellitus with hemoglobin A1c goal of less than 8.0% ([facility]),Diabetes mellitus, type II, insulin dependent ([facility]) inject 20 units subcutaneously every morning and inject 10 units every NIGHT 30 mL 4 Active Trelegy Ellipta 100-62.5-25 MCG/ACT Aerosol Powder Breath Activated (Fluticasone-Umeclid inium-Vilanterol) inhale 1 puff by mouth and INTO THE LUNGS every morning 60 Blister Dosing Unit 5 4 Active predniSONE 5 MG Oral Tablet (Deltasone)Indicatio ns:shelter current use of systemic steroids Take 1 Tablet by mouth in the morning. 30 Tablet 1 4 Active Albuterol Sulfate HFA 108 (90 Base) MCG/ACT Inhalation Aerosol SolutionIndications: Mild persistent asthma with acute exacerbation,COPD, group B, by GOLD 2017 classification ([facility]) inhale 1 TO 2 puffs by mouth and INTO THE LUNGS every 2 hours if needed 8.5 g 5 4 Active HYDROcodone-Acetamin ophen 10-325 MG Oral [...] needed for Anxiety. 60 Tablet 4 Active NovoLOG FlexPen 100 UNIT/ML Subcutaneous Solution Pen-injector (insulin aspart)Indications:T ype 2 diabetes mellitus with hemoglobin A1c goal of less than 8.0% (HCC) inject 20 units with breakfast 10 units with SNACK and 10 units with dinner (CF:1:40 OVER 160) 45 mL 3 4 Active Hydroxychloroquine Sulfate 200 MG Oral Tablet (Plaquenil)Indicatio ns:HLA B27 (HLA B27 positive) take 2 tablets by mouth at bedtime 180 Tablet 1 4 Active Hospital, Clinic, or Other Facility [...] as of this encounter (statuses as of 11/29/2023) Active Problems Problem Noted Date Diagnosed Date Moderate episode of recurrent major depressive d isorder 10/16/2023 Reactive arthritis of multiple sites 07/05/2023 Food insecurity 07/03/2023 Overview: Per [facility] Protocol Diabetic peripheral neuropathy 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 06/20 History [...] situ 11/23/2018 Chronic atrial fibrillation 08/24/2018 Overview: [facility] Dr Armenta Diabetes mellitus, type [...] CORONARY ATHEROSCLEROSIS OF UNSPECIFIED TYPE OF VESSEL, [place] OR GRAFT Peptic ulcer Asthma, mild persistent HLA B27 (HLA B27 positive) documented as of this encounter (statuses as of 11/29/2023) Resolved Problems Problem Noted Date Diagnosed Date [...] as of this encounter (statuses as of 11/29/2023) Immunizations Name Administration Dates Next Due COVID-19 mRNA, LNP-s, No Pre serve, 2-Dose Series (Moderna) 10/23/2020,06/23/2020 H1N1 2009 Influenza, IM 04/06/2009 Pneumococcal Conjugate Vacci ne, 20-valent ([id number]) 11/19/2021 Pneumococcal Polysaccharide PPV23 (Pneumovax) 02/09/2007 Seasonal [...] as of this encounter Progress Notes * Courtney Paulino PHARM Tech - 11/29/2023 10:02 AM EDT Contacts Contact Date/Time Type Contact Phone/Fax 11/29/2023 10:00 AM EDT Phone (Outgoing) Alan Pereira Jr. (Self) [phone] (M) Left Message Subjective Advised patient to contact Anticoagulation Clinic if any unusual bruising or bleeding, recent illness, changes in medication, or questions/concerns. PT/INR results, Coumadin dose instructions, and next PT/INR date communicated as noted by Pharmacist: Yes LUCY COOPER 11/29/2023, 10:02 AM * Dorinda Spears [facility] - 11/29/2023 9:06 AM EDT Coumadin Clinic (region specific) Objective Current Warfarin Dose As of 11/29/2023 Warfarin maintenance plan: 5 mg (5 mg x 1) every Mon, Tracey; 10 mg (5 mg x 2) all other days INR Result As of 11/29/2023 INR goal: 2.0-3.0 INR used for dosin.2 (11/28/2023) Assessment & Plan Warfarin Plan As of 11/29/2023 Full warfarin instructions: 5 mg every Mon, Tracey; 10 mg all other days No change documented: Dorinda Spears dorina Next INR check: 12/12/2023 Repeat PT/INR in 2 week(s) Weekly dose: not changed Additional Dosing Information: Description [facility] to contact patient with dose instructions as noted. Dorinda Spears RPh 11/29/2023, 9:06 AM documented in this encounter Plan of Treatment Upcoming Encounters Date Type Department Care Team (Late st Contact Info) Description 12/18/2023 6:10 PM EDT Pharmacy Pharmacy, [facility] [address] [place] [address] [facility] [address] [place] [address] 12/22/2023 3:20 PM EDT Office Visit Rheumatology [address] [place] [phone] Demetrius Aj MD [address] [place] [address] [place] [address] 12/25/2023 2:00 PM EDT PulmDiagnostic Pulmonary Function Lab, [facility] [address] [place] [address] [facility] [address] [place] [address] 01/22/2024 2:00 PM EDT Office Visit Family Medicine [address] [place] [phone] Brigitte Byrd MD [address] [place] [address] [place] [address] 02/13/2024 12:20 PM EST Office Visit Pulmonary Medicine, [facility] [address] [place] [address] Miguel Munoz MD [address] [place] [phone] Scheduled Procedures Name Priority Associated Diagnoses Date/Ti [...] Screening Completed 04/03/2023, 10/24/2013 Alpha-1 Antitrypsin Discontinued HPV (Gardasil) Vaccine Aged Out No lo [...] Directives occurred with: Not Discussed Care Teams Microbiological Lab Technician Relationship Specialty Start Date End Date Brigitte Byrd MD [address] [place] [address] [place] [address] PCP - General Family Medicine 11/23/18 documented as of this encounter
--- OUTSIDE RECORDS SUMMARY | 2024-01-09 00:06 | External Medical Summary | Summary of Care ---
Author Name Unknown Organization [facility] Address [address] [facility] [place]AMORA [address] Phone [phone] Care Team Providers Care Asphalt Paving Machine Operator Name Role Phone Brigitte Byrd MD Primary Care Prov ider Reason for Visit * Reason Comments Appointment Encounter Details Date Type Department Care Team (Late st Contact Info) Description 12/18/2023 6:10 PM EDT [facility] [address] [facility] 132 [facility] [place] [address] Chronic pain syndrome* Allergies Active Allergy Reactions Criticality Noted Date Comments Diclofenac Resin Rash Low 11/15/1999 Voltaren Atorvastatin Calcium Muscle pain 11/23/2018 Rosuvastatin Muscle pain 11/23/2018 documented as of this encounter (statuses as of 12/18/2023) Medications Medication Sig Dispensed Refills Start Date [...] goal of less than 8.0% ([facility]) Use as directed . Test 3 times daily. Pt is on insulin Dx E11.9 1 Kit 2 Active Pylera 140-125-125 MG Oral Capsule (Bis Gczvvx-Ybyhbkdi-Bonq acyc) 3 capsules 4 times/day x 10 days 120 Capsule 2 Active Additional Information Patient not taking.Reported on 10/16/2023 Atenolol 25 MG Oral Tablet (Tenormin)Indication s:Atherosclerosis of [place] coronary artery of [place] heart without angina pectoris take 1/2 tablet [...] Nasal Suspension (Flonase)Indications :Allergic rhinitis Administer 1 Godley into nostril in the morning. 48 mL [...] evening. Or take as instructed by the [facility]. Due for INR. 180 Tablet 4 Active Insulin Glargine Solostar 100 UNIT/ML Subcutaneous Solution Pen-injector (Basaglar KwikPen)Indications: Type 2 diabetes mellitus with hemoglobin A1c goal of less than 8.0% ([facility]),Diabetes mellitus, type II, insulin dependent ([facility]) inject 20 units subcutaneously every morning and inject 10 units every NIGHT 30 mL 4 Active Trelegy Ellipta 100-62.5-25 MCG/ACT Aerosol Powder Breath Activated (Fluticasone-Umeclid inium-Vilanterol) inhale 1 puff by mouth and INTO THE LUNGS every morning 60 Blister Dosing Unit 5 4 Active predniSONE 5 MG Oral Tablet (Deltasone)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 30 Tablet 1 4 Active Albuterol Sulfate HFA 108 (90 Base) MCG/ACT Inhalation Aerosol SolutionIndications: Mild persistent asthma with acute exacerbation,COPD, group B, by GOLD 2017 classification ([facility]) inhale 1 TO 2 puffs by mouth and INTO THE LUNGS every 2 hours if needed 8.5 g 5 4 Active NovoLOG FlexPen 100 UNIT/ML Subcutaneous Solution Pen-injector (insulin aspart)Indications:T ype 2 diabetes mellitus with hemoglobin A1c goal of less than 8.0% ([facility]) inject 20 units with breakfast 10 units [...] needed for Anxiety. 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 [...] situ 11/23/2018 Chronic atrial fibrillation 08/24/2018 Overview: [facility] Dr Armenta Diabetes mellitus, type [...] CORONARY ATHEROSCLEROSIS OF UNSPECIFIED TYPE OF VESSEL, TELLER OR GRAFT Peptic ulcer Asthma, mild persistent HLA B27 (HLA B27 positive) documented as of this encounter (statuses as of 12/18/2023) Resolved Problems Problem Noted Date Diagnosed Date [...] as of this encounter (statuses as of 12/18/2023) Immunizations Name Administration Dates Next Due COVID-19 mRNA, LNP-s, No Pre serve, 2-Dose Series (Moderna) 10/23/2020,06/23/2020 H1N1 2009 Influenza, IM 04/06/2009 Pneumococcal Conjugate Vacci ne, 20-valent ([id number]) 11/19/2021 Pneumococcal Polysaccharide PPV23 (Pneumovax) 02/09/2007 Seasonal [...] 2:46 PM EDT Sexual Orientation Straight 06/07/2023 2 :46 PM EDT Job Start Date Occupation Industry Not on file Not on file Not on file documented as of this encounter Progress Notes * Ana Morel PHARM Tech - 12/18/2023 8:33 AM EDT Patient Phone Numbers Left message on patients answering machine to schedule [facility] appointment for Pain management. [facility] message sent --no Clinic will follow up again in 4 week(s). [Attempt # 3] Thank you, Ana Morel Rayon Winder [facility] ([facility]) 12/18/2023, 8:35 AM documented in this encounter Plan of Treatment Upcoming Encounters Date Type Department Care Team (Late st Contact Info) Description 12/22/2023 6:30 AM EDT Anticoagulation Centralized Clinical Pharmacy Services, [facility] [address] [place] [address] TANI[place] Marmolejo [address] [facility], [address] [place] [address] 12/22/2023 3:20 PM EDT Office Visit Rheumatology [address] [place] [phone] Demetrius Aj MD [facility] [facility] [place] [address] 12/25/2023 2:00 PM EDT PulmDiagnostic Pulmonary Function Lab, [facility] 132 [facility] [place] [address] [facility] Pul Function Tech [facility] [place] [address] 01/19/2024 6:10 PM EDT Pharmacy Pharmacy, [facility] [place] [address] [place] [address] [facility] [place] [address] 01/22/2024 2:00 PM EDT Office Visit Family Medicine [address] [place] [phone] Brigitte Byrd MD [address] [place] [address] [place] Sotelo [address] 02/13/2024 12:20 PM EST Office Visit Pulmonary Medicine, [facility] 132 [facility] [place] [address] Miguel Munoz MD [address] [place] [address] Scheduled Procedures Name Priority Associated Diagnoses Date/Ti me COLONOSCOPY FLEXIBLE PROXIMAL DIAGNOSTIC Recall History of colon polyps Health Maintenance Due Date Last Done Comments DISCUSS TOBACCO CESSATION (REFER TO SMARTSET #3382) 1955 Zoster Vaccines (1 of 2) 02/22/1975 [...] of this encounter Visit Diagnoses Diagnosis Chronic pain syndrome- Primary documented in this encounter Advance Directives * [...] Directives occurred with: Not Discussed Care Teams Asphalt Paving Machine Operator Relationship Specialty Start Date End Date Brigitte Byrd MD [address] [place] [address] [place]elo [address] PCP - General Family Medicine 11/23/18 documented as of this encounter
--- OUTSIDE RECORDS SUMMARY | 2024-01-09 00:06 | External Medical Summary | Summary of Care ---
Author Name Unknown Organization [facility] Address [address] [facility] [address] Phone [phone] Care Team Providers Care Crusher Feeder Name Role Phone Brigitte Byrd MD Primary Care Prov ider Reason for Referral * Medication Prior Authorization - Closed Specialty Diagnoses / Procedures Referred By Contbriana t Referred To Contact Diagnoses PTSD (post-traumatic stress disorder) Brigitte Byrd MD [address] [place] [address] [place] Sotelo [id number] Referral ID Status Reason Start Date Expiration Date Visits Re quested Visits Authorized [id number] Closed [phone] Reason for Visit * Reason Onset Date Comments Medication Refill 12/04/2023 Encounter Details Date Type Department Care Team (Late st Contact Info) Description 12/04/2023 Refill Family Medicine [address] [place] [phone] Rosa Borja MD [address] [place] [address] [place] Sotelo [phone] PTSD (post-traumatic stress disorder) Allergies Active Allergy Reactions Criticality Noted Date Comments Diclofenac Resin Rash Low 11/15/1999 Voltaren Atorvastatin Calcium Muscle pain 11/23/2018 Rosuvastatin Muscle pain 11/23/2018 documented as of this encounter (statuses as of 12/05/2023) Medications Medication Sig Dispensed Refills Start Date End Date Status MULTIVITAMINS PO TABS one tab daily Active Insulin Syringe-Needle U-100 30G X 1/2" 0.3 ML MISCIndications:DM type 2 nursing care encounter ([facility]) Use as directed. [address] 5 [...] (3) MG/3ML Inhalation Solution (Duoneb)Indications :COPD exacerbation ([facility]) INHALE 1 VIAL VIA NEBILIZER TWICE A DAY AND EVERY 6 HOURS IN BETWEEN NEEDED 270 mL 5 1 Active Accu-Chek Guide w/Device KitIndications:Type 2 diabetes mellitus with hemoglobin A1c goal of less than 8.0% ([facility]) Use as directed . Test 3 times daily. Pt is on insulin Dx E11.9 1 Kit 2 Active Pylera 140-125-125 MG Oral Capsule (Bis Yrrbhj-Schzcrhr-Iua racyc) 3 capsules 4 times/day x 10 days 120 Capsule 2 Active Additional Information Patient not taking.Reported on 10/16/2023 Atenolol 25 MG Oral Tablet (Tenormin)Indicatio ns:Atherosclerosis of [place] coronary artery of [place] heart without angina pectoris take 1/2 tablet [...] 10/16/2023 Fluticasone Propionate 50 MCG/ACT Nasal Suspension (Flonase)Indication s:Allergic rhinitis Administer 1 Sheldon into nostril in the morning. 48 mL 1 3 Active BD Pen Needle Short U/F 31G X 8 MM (Insulin Pen Needle)Indications: Type 2 diabetes mellitus with hemoglobin A1c goal of less than 8.0% ([facility]) USE 5 TIMES DAILY WITH INSULIN DX [...] goal of less than 8.0% ([facility]),Diabetes mellitus, type II, insulin dependent ([facility]) USE TEST STRIPS TO TEST BLOOD SUGARS [...] goal of less than 8.0% ([facility]) Use to test 3 times a day. [...] evening. Or take as instructed by the [facility]in [facility]. Due for INR. 180 Tablet 4 Active Insulin Glargine Solostar 100 UNIT/ML Subcutaneous Solution Pen-injector (Basaglar Harish)Indications :Type 2 diabetes mellitus with hemoglobin A1c goal of less than 8.0% ([facility]),Diabetes mellitus, type II, insulin dependent ([facility]) inject 20 units subcutaneously every morning and inject 10 units every NIGHT 30 mL 4 Active Trelegy Ellipta 100-62.5-25 MCG/ACT Aerosol Powder Breath Activated (Fluticasone-Umecli dinium-Vilanterol) inhale 1 puff by mouth and INTO THE LUNGS every morning 60 Blister Dosing Unit 5 4 Active predniSONE 5 MG Oral Tablet (Deltasone)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 30 Tablet 1 4 Active Albuterol Sulfate HFA 108 (90 Base) MCG/ACT Inhalation Aerosol SolutionIndications :Mild persistent asthma with acute exacerbation,COPD, group B, by GOLD 2017 classification ([facility]) inhale 1 TO 2 puffs by mouth [...] as needed for Anxiety. 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 06/20 History [...] situ 11/23/2018 Chronic atrial fibrillation 08/24/2018 Overview: [facility] Dr Armenta Diabetes mellitus, type [...] CORONARY ATHEROSCLEROSIS OF UNSPECIFIED TYPE OF VESSEL, [place] OR GRAFT Peptic ulcer Asthma, mild persistent HLA B27 (HLA B27 positive) documented as of this encounter (statuses as of 12/05/2023) Resolved Problems Problem Noted Date Diagnosed Date [...] as of this encounter (statuses as of 12/05/2023) Immunizations Name Administration Dates Next Due COVID-19 mRNA, LNP-s, No Pre serve, 2-Dose Series (Moderna) 10/23/2020,06/23/2020 H1N1 2009 Influenza, IM 04/06/2009 Pneumococcal Conjugate Vacci ne, 20-valent ([id number]) 11/19/2021 Pneumococcal Polysaccharide PPV23 (Pneumovax) 02/09/2007 Seasonal [...] No 06/07/2023 Does the household have a veterans affairs [facility] healthcare system[facility] source of income? (Household - for ages [...] Telephone Encounter - Brigitte Byrd MD - 12/05/2023 1:22 PM EDT Signed Prescriptions: Disp Refills LORazepam 0.5 MG Oral Tablet (Ativan) 60 Tab*0 Sig: Take 1 Tablet by mouth 2 times a day as needed for Anxiety. Authorizing Provider: BRIGITTE BYRD * Telephone Encounter - Edgardo Jacobs [facility] - 12/05/2023 12:57 PM EDTPending Prescriptions: Disp Refills LORazepam 0.5 MG Oral Tablet (Ativan) 60 Tab*0 Sig: Take 1 Tablet by mouth 2 times a day as needed for Anxiety. * Telephone Encounter - Edgardo Jacobs [facility] - 12/05/2023 12:56 PM EDT I have reviewed the patients controlled substance dispensing history in the Prescription Drug Monitoring Program in compliance with the [facility] regulations before prescribing a controlled substance. PDMP checked on 12/05/2023. Pending Prescriptions: Disp Refills LORazepam 0.5 MG Oral Tablet (Ativan) 60 Tab*0 Sig: Take 1 Tablet by mouth 2 times a day as needed for Anxiety. Last Visit: 10/16/2023 (in office), 08/29/2023 (telemedicine) Next Visit: 01/22/2024 Date medication was last filled: 11/06/23 Date medication is due for refill: 12/05/23 Pharmacy: [facility] #[id number] [facility] Is this request for a controlled [...] Results Review. Please approve if appropriate. Thank You, Edgardo [facility] Clinical Pharmacist Centralized Clinical Pharmacy Services ([facility]) 12/05/2023, 12:56 PM documented in this encounter Plan of Treatment Upcoming Encounters Date Type Department Care Team (Late st Contact Info) Description 12/13/2023 6:30 AM EDT Anticoagulation Centralized Clinical Pharmacy Services, [facility] [address] [place] [address] T[place] Marmolejo [address] [facility], [address] [place] [address] 12/18/2023 6:10 PM EDT Pharmacy Pharmacy, [facility] 132 [facility] [place] Devries [address] [facility] 132 [place] [address] 12/22/2023 3:20 PM EDT Office Visit Rheumatology [address] [place] [phone] Demetrius Aj MD 6550 [facility] [place] [address] 12/25/2023 2:00 PM EDT PulmDiagnostic Pulmonary Function Lab, [facility] [place] [address] [place], Pulm Function Tech 2 132 [facility] [place]kew [address] 01/22/2024 2:00 PM EDT Office Visit Family Medicine [address] [place] [phone] Brigitte Byrd MD [address] [place] [address] [place] [address] 02/13/2024 12:20 PM EST Office Visit Pulmonary Medicine, [facility] 132 [facility] [place]KEW [address] Miguel Munoz MD [address] [place] [phone] Scheduled Procedures Name Priority Associated Diagnoses Date/Ti me COLONOSCOPY FLEXIBLE PROXIMAL DIAGNOSTIC Recall History of colon polyps Health Maintenance Due Date Last Done Comments DISCUSS TOBACCO CESSATION (REFER TO SMARTSET #9407) 1955 Zoster Vaccines (1 of 2) 02/22/1975 [...] Directives occurred with: Not Discussed Care Teams Crusher Feeder Relationship Specialty Start Date End Date Brigitte Byrd MD [address] [place] [address] [place] Sotelo [address] PCP - General Family Medicine 11/23/18 documented as of this encounter
--- OUTSIDE RECORDS SUMMARY | 2024-01-09 00:06 | External Medical Summary | Summary of Care ---
Author Name Unknown Organization [facility] Address [address] [facility] [place] [address] Phone [phone] Care Team Providers Care Founding Partner Name Role Phone Brigitte Byrd MD Primary Care Prov ider Reason for Visit * Reason Comments eRx-Medication Refill Encounter Details Date Type Department Care Team (Late st Contact Info) Description 12/04/2023 Refill Family Medicine [address] [phone] Rosa Borja MD [address] [place] [address] [place] Sotelo [address] PTSD (post-traumatic stress disorder) [...] hemoglobin A1c goal of less than 8.0% ([facility]) Use as directed . Test 3 times daily. Pt is on insulin Dx E11.9 1 Kit 2 Active Pylera 140-125-125 MG Oral Capsule (Bis Iaddaf-Rjjfmoui-Btp racyc) 3 capsules 4 times/day x 10 days 120 Capsule 2 Active Additional Information Patient not taking.Reported on 10/16/2023 Atenolol 25 MG Oral Tablet (Tenormin)Indicatio ns:Atherosclerosis of [place] coronary artery of [place] heart without angina pectoris take 1/2 tablet [...] Nasal Suspension (Flonase)Indication s:Allergic rhinitis Administer 1 Golden into nostril in the morning. 48 mL [...] evening. Or take as instructed by the [facility] Coumadin [facility]. Due for INR. 180 Tablet 4 Active Insulin Glargine Solostar 100 UNIT/ML Subcutaneous Solution Pen-injector (Basaglar KwikPen)Indications :Type 2 diabetes mellitus with hemoglobin A1c goal of less than 8.0% ([facility]),Diabetes mellitus, type II, insulin dependent ([facility]) inject 20 units subcutaneously every morning and inject 10 units every NIGHT 30 mL 4 Active Trelegy Ellipta 100-62.5-25 MCG/ACT Aerosol Powder Breath Activated (Fluticasone-Umecli dinium-Vilanterol) inhale 1 puff by mouth and INTO THE LUNGS every morning 60 Blister Dosing Unit 5 4 Active predniSONE 5 MG Oral Tablet (Deltasone)Indicati ons:longterm current use of systemic steroids Take 1 Tablet by mouth in the morning. 30 Tablet 1 4 Active Albuterol Sulfate HFA 108 (90 Base) MCG/ACT Inhalation Aerosol SolutionIndications :Mild persistent asthma with acute exacerbation,COPD, group B, by GOLD 2017 classification ([facility]) inhale 1 TO 2 puffs by mouth and INTO THE LUNGS every 2 hours if needed 8.5 g 5 4 Active NovoLOG FlexPen 100 UNIT/ML Subcutaneous Solution Pen-injector (insulin aspart)Indications: Type 2 diabetes mellitus with hemoglobin A1c goal of less than 8.0% ([facility]) inject 20 units with breakfast [...] sites 07/05/2023 Food insecurity 07/03/2023 Overview: Per [facility] Protocol 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 (Household - for ages [...] Encounter - Brigitte Byrd MD - 12/05/2023 1:40 PM EDT Signed Prescriptions: Disp Refills LORazepam 0.5 MG Oral Tablet (Ativan) 60 Tab*0 Sig: take 1 tablet by mouth twice a day if needed for anxiety Authorizing Provider: BRIGITTE BYRD * Telephone Encounter - Edgardo Jacobs [facility] - 12/05/2023 12:56 PM EDTPending Prescriptions: Disp Refills LORazepam 0.5 MG Oral Tablet (Ativan) 60 Tab*0 Sig: take 1 tablet by mouth twice a day if needed for anxiety * Telephone Encounter - Edgardo Jacobs [facility] - 12/05/2023 12:55 PM EDT I have reviewed the patients controlled substance dispensing history in the Prescription Drug Monitoring Program in compliance with the [facility] regulations before prescribing a controlled substance. PDMP checked on 12/05/2023. Pending Prescriptions: Disp Refills LORazepam 0.5 MG Oral Tablet (Ativan) [Ph*60 Tab* Sig: take 1 tablet by mouth twice a day if needed for anxiety Last Visit: 10/16/2023 (in office), 08/29/2023 (telemedicine) Next Visit: 01/22/2024 Date medication was last filled: 11/06/23 Date medication is due for refill: 12/05/23 Pharmacy: [facility] #[id number] [facility] Is this request for a controlled substance? [...] approve if appropriate. Thank You, Edgardo Jordan [facility] Clinical Pharmacist Centralized Clinical Pharmacy Services ([facility]) 12/05/2023, 12:55 PM documented in this encounter Plan of Treatment Upcoming Encounters Date Type Department Care Team (Late st Contact Info) Description 12/13/2023 6:30 AM EDT Anticoagulation Centralized Clinical Pharmacy Services, [facility] [address] [place] [address] [place] Marmolejo [address] [facility], [address] [place] [address] 12/18/2023 6:10 PM EDT [facility]acy [facility] 132 [facility] T[place] Devries [address] [facility] [address] [place] [address] 12/22/2023 3:20 PM EDT Office Visit Rheumatology [address] [place] [phone] Demetrius Aj MD [address] [facility] [place] [address] 12/25/2023 2:00 PM EDT PulmDiagnostic Pulmonary Function Lab, [facility] 132 [place] Mendoza [address] [facility] Pul Function Tech [address] [place] [address] 01/22/2024 2:00 PM EDT Office Visit Family Medicine [address] [place] [phone] Brigitte Byrd MD [address] [place] [address] [place] Sotelo [address] 02/13/2024 12:20 PM EST Office Visit Pulmonary Medicine, [facility] 132 [facility] [place]KEW [address] Miguel Munoz MD [address] [facility] [id number] Scheduled Procedures Name Priority Associated Diagnoses Date/Ti me COLONOSCOPY FLEXIBLE PROXIMAL DIAGNOSTIC Recall History of colon polyps Health Maintenance Due Date Last Done Comments DISCUSS TOBACCO CESSATION (REFER TO SMARTSET #9392) 1955 Zoster Vaccines (1 of 2) 02/22/1975 [...] Directives occurred with: Not Discussed Care Teams Founding Partner Relationship Specialty Start Date End Date Brigitte Byrd MD [address] [place] [address] [place] Sotelo [address] PCP - General Family Medicine 11/23/18 documented as of this encounter
--- OUTSIDE RECORDS SUMMARY | 2024-01-09 00:06 | External Medical Summary | Summary of Care ---
Author Name Unknown Organization [facility] Address [address] [address] Phone [phone] Care Team Providers Care [place] Tour Guide Name Role Phone Briigtte Byrd MD Primary Care Prov ider Reason for Visit * Reason Comments eRx-Medication Refill Encounter Details Date Type Department Care Team (Late st Contact Info) Description 12/18/2023 Refill Family Medicine [address] [phone] Brigitte Byrd MD [address] [place], [place] [address] [address] Chronic atrial fibrillation (HCC) Allergies Active Allergy Reactions Criticality Noted Date Comments Diclofenac Resin Rash Low 11/15/1999 Voltaren Atorvastatin Calcium Muscle pain 11/23/2018 Rosuvastatin Muscle pain 11/23/2018 documented as of this encounter (statuses as of 12/19/2023) Medications Medication Sig Dispensed Refills Start Date End Date Status MULTIVITAMINS PO TABS one tab daily Active Insulin Syringe-Needle U-100 30G X 1/2" 0.3 ML MISCIndications:DM type 2 nursing care encounter (HCC) Use as directed. 1 Box 11 01/06/20 15 Active isosorbide dinitrate (ISORDIL) 10 MG Tablet Take 1 Tablet by mouth in the morning. 08/25/19 Active furosemide (LASIX) 20 MG Tablet Take [...] constipation 1 Bottle 2 01/03/20 19 Active Additional Information Patient not taking.Reported on 10/16/2023 Aspirin Low Dose 81 MG Oral Tablet Chewable Take 1 Tablet by mouth in the morning. 08/05/19 Active Ipratropium-[place] rol 0.5-2.5 (3) MG/3ML Inhalation [...] MG Oral Tablet (Tenormin)Indicati ons:Atherosclerosi s of [place] coronary artery of [place] heart without angina pectoris take 1/2 tablet by mouth every evening if needed for PALPITATIONS 45 Tablet 3 09/03/19 23 Active Zoster Vac Recomb Adjuvanted 50 MCG/0.5ML Intramuscular Suspension Reconstituted (Shingrix) Inject 0.5 mL into a large muscle now and repeat dose in 60 to 180 days 1 Each 1 09/14/19 23 Active Additional Information Patient not taking.Reported on 10/16/2023 Fluticasone Propionate 50 MCG/ACT Nasal Suspension (Flonase)Indicatio ns:Allergic rhinitis Administer 1 [place] into nostril in the morning. 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 30 Tablet 1 10/16/19 24 Active Albuterol Sulfate HFA 108 (90 [...] 24 Active LORazepam 0.5 MG Oral Tablet (Ativan)Indication s:PTSD (post-traumatic stress disorder) take 1 tablet by mouth twice a day if needed for anxiety 60 Tablet 12/05/19 24 Active LORazepam 0.5 MG Oral Tablet (Ativan)Indication s:PTSD (post-traumatic stress disorder) Take 1 Tablet by mouth 2 times a day as needed for Anxiety. 60 Tablet 12/05/19 24 Active Warfarin Sodium 5 MG Oral Tablet (Coumadin)Indicati ons:Chronic atrial fibrillation (HCC) Take 1-2 Tablets by mouth every evening. Or take as instructed by the [facility]. 180 Tablet 1 12/19/19 24 Active Pylera 140-125-125 MG Oral Capsule (Bis Wsrgfp-Zhrtwhsz-Bx tracyc) 3 capsules 4 times/day x 10 days 120 Capsule 05/05/19 22 024 Discontinued(Nv dication List Clean Up) Warfarin Sodium 5 MG Oral Tablet (Coumadin)Indicati ons:Chronic atrial fibrillation (HCC) Take 1-2 Tablets by mouth every evening. Or take as instructed by the [facility]. Due for INR. 180 Tablet 09/21/19 24 024 Discontinued Hospital, Clinic, or Other [...] as of this encounter (statuses as of 12/19/2023) Active Problems Problem Noted Date Diagnosed Date Moderate episode of recurrent major depressive d isorder 10/16/2023 Reactive arthritis of multiple sites 07/05/2023 Food insecurity 07/03/2023 Overview: Per [facility] Protocol Diabetic peripheral neuropathy 09/13/2022 dedicated [...] situ 11/23/2018 Chronic atrial fibrillation 08/24/2018 Overview: [facility] Dr Armenta Diabetes mellitus, type [...] CORONARY ATHEROSCLEROSIS OF UNSPECIFIED TYPE OF VESSEL, EGEGIK OR GRAFT Peptic ulcer Asthma, mild persistent HLA B27 (HLA B27 positive) documented as of this encounter (statuses as of 12/19/2023) Resolved Problems Problem Noted Date Diagnosed Date [...] update of inactive term Hypopotassemia 06/22/2007 03/10/2017 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 Asthma, allergic 04/05/2001 09/17/2009 Arthritis, rheumatoid 2005 MYOCARDIAL INFARCTION; OTHER 12/11/2014 documented as of this encounter (statuses as of 12/19/2023) Immunizations Name Administration Dates Next Due COVID-19 mRNA, LNP-s, No Pre serve, 2-Dose Series (Moderna) 10/23/2020,06/23/2020 H1N1 2009 Influenza, IM 04/06/2009 Pneumococcal Conjugate Vacci ne, 20-valent ([id number]) 11/19/2021 Pneumococcal Polysaccharide PPV23 (Pneumovax) 02/09/2007 Seasonal [...] encounter Miscellaneous Notes * Telephone Encounter - Lula Pineda [facility] - 12/19/2023 12:06 PM EDT Signed Prescriptions: Disp Refills Warfarin Sodium 5 MG Oral Tablet (Coumadin)180 Ta*1 Sig: Take 1-2 Tablets by mouth every evening. Or take as instructed by the [facility].Authorizing Provider: BRIGITTE BYRD User: LULA PINEDA documented in this encounter Plan of Treatment Upcoming Encounters Date Type Department Care Team (Late st Contact Info) Description 12/22/2023 6:30 AM EDT Anticoagulation Centralized Clinical Pharmacy Services, [facility] [address] [place] [address] [place] [phone] [place] [address] 12/22/2023 3:20 PM EDT Office Visit Rheumatology [address] [place] [phone] Demetrius Aj MD [address] [place] [address] [place] [address] 12/25/2023 2:00 PM EDT PulmDiagnostic Pulmonary Function Lab, [facility] [address] [facility] [place] [address] [facility] [address] [place] [address] 01/19/2024 6:10 PM EDT Pharmacy Pharmacy, [facility] 132 [facility] [place] [address] [facility] [address] [place] [address] 01/22/2024 2:00 PM EDT Office Visit Family Medicine [address] [place] [phone] Brigitte Byrd MD [address] [place] [address] [place] [address] 02/13/2024 12:20 PM EST Office Visit Pulmonary Medicine, [facility] [address] [place] [address] Miguel Munoz MD [address] [place] [address] Scheduled Procedures Name Priority Associated Diagnoses Date/Ti me COLONOSCOPY FLEXIBLE PROXIMAL DIAGNOSTIC Recall History of colon polyps Health Maintenance Due Date Last Done Comments DISCUSS TOBACCO CESSATION (REFER TO SMARTSET #7976) 1956 Zoster Vaccines (1 of 2) 02/22/1975 [...] Directives occurred with: Not Discussed Care Teams National [place] Tour Guide Relationship Specialty Start Date End Date Brigitte Byrd MD [address] [place] [address] [place] [address] PCP - General Family Medicine 11/23/18 documented as of this encounter
--- OUTSIDE RECORDS SUMMARY | 2024-01-09 00:06 | External Medical Summary | Summary of Care ---
Author Name Unknown Organization [facility] Address [address] [facility] [place] [address] Phone [phone] Care Team Providers Care Director Client Services Name Role Phone Brigitte Byrd MD Primary Care Prov ider Reason for Visit * Reason Comments eRx-Medication Refill Encounter Details Date Type Department Care Team (Late st Contact Info) Description 11/27/2023 Refill Rheumatology [address] [place] [phone] Demetrius Glasgow MD [address] [facility] [address] [facility] [place] [address] HLA B27 (HLA B27 positive) Allergies Active Allergy Reactions Criticality Noted Date [...] goal of less than 8.0% ([facility]) Use as directed . Test 3 times daily. Pt is on insulin Dx E11.9 1 Kit 04/30/19 22 Active Pylera 140-125-125 MG Oral Capsule (Bis Ddiiei-Ebsbrfqw-Trx racyc) 3 capsules 4 times/day x 10 days 120 Capsule 05/05/19 22 Active Additional Information Patient not taking.Reported on 10/16/2023 Atenolol 25 MG Oral Tablet (Tenormin)Indicatio ns:Atherosclerosis of [place] coronary artery of [place] heart without angina pectoris take 1/2 tablet [...] Nasal Suspension (Flonase)Indication s:Allergic rhinitis Administer 1 [place] into nostril in the morning. 48 mL [...] morning 90 Tablet 1 08/29/19 24 Active Warfarin Sodium 5 MG Oral Tablet (Coumadin)Indicatio ns:Chronic atrial fibrillation (HCC) Take 1-2 Tablets by mouth every evening. Or take as instructed by the [facility]. Due for INR. 180 Tablet 09/21/19 24 Active Insulin Glargine Solostar 100 UNIT/ML Subcutaneous Solution Pen-injector (Basaglmarcellus Moreira)Indications :Type 2 diabetes mellitus with hemoglobin A1c goal of less than 8.0% ([facility]),Diabetes mellitus, type II, insulin dependent ([facility]) inject 20 units subcutaneously every morning and inject 10 units every NIGHT 30 mL 09/29/19 24 Active Trelegy Ellipta 100-62.5-25 MCG/ACT Aerosol Powder Breath Activated (Fluticasone-Umecli dinium-Vilanterol) inhale 1 puff by mouth and INTO THE LUNGS every morning 60 Blister Dosing Unit 5 10/11/19 24 Active predniSONE 5 MG Oral Tablet (Deltasone)Indicati ons:half-way current use of systemic steroids Take 1 Tablet by mouth in the morning. 30 Tablet 1 10/16/19 24 Active Albuterol Sulfate HFA 108 (90 Base) MCG/ACT Inhalation Aerosol SolutionIndications :Mild persistent asthma with acute exacerbation,COPD, group B, by GOLD 2017 classification ([facility]) inhale 1 TO 2 puffs by mouth and INTO THE LUNGS every 2 hours if needed 8.5 g 5 10/30/19 24 Active HYDROcodone-Acetami nophen 10-325 MG Oral TabletIndications:C ervical stenosis of spinal canal,Lumbar degenerative disc disease Take 2.5 Tablets by mouth daily as needed for Pain, Severe. Take 0.5-1 tab every 8 hours as needed for severe pain. Max dose of 2.5 tablets per day. 75 Tablet 10/31/19 24 Active LORazepam 0.5 MG Oral Tablet (Ativan)Indications :PTSD (post-traumatic stress disorder) Take 1 Tablet by mouth 2 times a day as needed for Anxiety. 60 Tablet 11/06/19 24 Active NovoLOG FlexPen 100 UNIT/ML Subcutaneous [...] bedtime 180 Tablet 1 11/29/19 24 Active Hydroxychloroquine Sulfate 200 MG Oral Tablet (Plaquenil)Indicati ons:HLA B27 (HLA B27 positive) Take 2 Tablets by mouth at bedtime. 180 Tablet 08/30/19 24 024 Discontinued Hospital, Clinic, or Other Facility Administered Medication Ordered Dose Route Frequency Start Date End Date Status Albuterol Sulfate (Proventil) (2.5 MG/3ML) 0.083% inhalation solution 2.5 mgIndications:COPD exacerbation (HCC) 2.5 mg NEBULIZER ONCE PRN 10/16/2023 10/15/2024 Active documented as of this encounter (statuses as of 11/29/2023) Active Problems Problem Noted Date Diagnosed Date Moderate episode of recurrent major depressive d isorder 10/16/2023 Reactive arthritis of multiple sites 07/05/2023 Food insecurity 07/03/2023 Overview: Per [facility] Protocol Diabetic peripheral neuropathy 09/13/2022 half-way current use of systemic steroids 06/20 History [...] situ 11/23/2018 Chronic atrial fibrillation 08/24/2018 Overview: [facility] Dr Armenta Diabetes mellitus, type [...] CORONARY ATHEROSCLEROSIS OF UNSPECIFIED TYPE OF VESSEL, [place] OR GRAFT Peptic ulcer Asthma, mild persistent [...] IM 04/06/2009 Pneumococcal Conjugate Vacci ne, 20-valent ([id number]) 11/19/2021 Pneumococcal Polysaccharide PPV23 (Pneumovax) 02/09/2007 Seasonal [...] Started: 1972 Pipe Cigars Smokeless Tobacco: Never Alcohol Use Standard Drinks/Week Comments Yes 0 [...] encounter Miscellaneous Notes * Telephone Encounter - Jeronimo Marvin RPh - 11/29/2023 9:37 AM EDTSigned Prescriptions: Disp Refills Hydroxychloroquine Sulfate 200 MG Oral Tab*180 Ta*1 Sig: take 2 tablets by mouth at bedtimeAuthorizing Provider: DEMETRIUS GLASGOW User: JERONIMO MARVIN--- * Telephone Encounter - Jeronimo Marvin RPh - 11/29/2023 9:34 AM EDT Rheumatology: Refill Request(s) Per review of the refill parameters, Medication was refilled Jeronimo Marvin RPh [facility] Clinical Pharmacist Rheumatology Department 11/29/2023,9:34 AM documented in this encounter Plan of Treatment Upcoming Encounters Date Type Department Care Team (Late st Contact Info) Description 12/18/2023 6:10 PM EDT Pharmacy Pharmacy, [facility] [address] [facility] [place] [address] [facility] [place] [address] 12/22/2023 3:20 PM EDT Office Visit Rheumatology [address] [place] [phone] Demetrius Glasgow MD [address] [facility] [place] [address] 12/25/2023 2:00 PM EDT PulmDiagnostic Pulmonary Function Lab, [facility] 132 [facility] [place] [address] [place] [facility] [address] [facility] [place] [address] 01/22/2024 2:00 PM EDT Office Visit Family Medicine [address] [place] [phone] Brigitte Byrd MD [address] [place] [address] [place] [address] 02/13/2024 12:20 PM EST Office Visit Pulmonary Medicine, [facility] [address] [facility] [place] [address] Miguel Munoz MD [address] [place] [address] Scheduled Procedures Name Priority Associated Diagnoses Date/Ti [...] as of this encounter Visit Diagnoses Diagnosis HLA B27 (HLA B27 positive) Genetic susceptibility to other disease documented in this encounter Advance Directives * [...] Directives occurred with: Not Discussed Care Teams Director Client Services Relationship Specialty Start Date End Date Brigitte Byrd MD [address] [place] [address] [place] [address] PCP - General Family Medicine 11/23/18 documented as of this encounter
--- OUTSIDE RECORDS SUMMARY | 2024-01-09 00:07 | External Medical Summary | Summary of Care ---
Author Name Unknown Organization [facility] Address [address] [facility] [facility] [address] Phone [phone] Care Team Providers Care Manager Track Name Role Phone Brigitte Byrd MD Primary Care Prov ider Reason for Referral * (Within 10 days (routine)) - Authorized Specialty Diagnoses / Procedures Referred By Cecily seth Referred To Contact Radiology Diagnoses History of tobacco abuse Procedures LUNG CANCER SCREENING PROGRAM REFERRAL Miguel Munoz MD [address] [facility] [address] Referral ID Status Reason Start Date Expiration Date V isits Requested Visits Authorized [id number] Authorized 11/28/2023 999 999 Reason for Visit * Reason Comments NEW PATIENT New pulm. COPD discu ss intermediate card tender steroid use. C/o dull chest pain and SOB , dizzy and light headed. Feels nauseated. He feels he still has the pneumonia. * Evaluate & Treat - Unlimited Visits (Within 10 days (routine)) - Authorized Specialty Diagnoses / Procedures Referred By Cecily seth Referred To Contact Pulmonary Diseases / Pulmonary Diagnoses COPD exacerbation (HCC) Brigitte Byrd MD [address] [place] [address] [place] [id number] Referral ID Status Reason Start Date Expiration Date Visits Requested Visits Authorized [id number] Authorized Specialty Services Required 10/16/2023 999 [id number] Encounter Details Date Type Department Care Team (Late st Contact Info) Description 11/28/2023 1:00 PM EDT Office Visit Pulmonary Medicine, [facility] [address] [place] [id number] Miguel Munoz MD [address] [facility] [place] [phone] History of tobacco abuse*; Dyspnea and respiratory abnormalities; COPD, severity to be determined ([facility]) Allergies Active Allergy Reactions Criticality Noted Date Comments Diclofenac Resin Rash Low 11/15/1999 Voltaren Atorvastatin Calcium Muscle pain 11/23/2018 Rosuvastatin Muscle pain 11/23/2018 documented as of this encounter (statuses as of 11/28/2023) Medications Medication Sig Dispensed Refills Start Date End Date Status MULTIVITAMINS PO TABS one tab daily Active Insulin Syringe-Needle U-100 30G X 1/2" 0.3 ML MISCIndications:DM type 2 nursing care encounter ([facility]) Use as directed. [address] 5 [...] hemoglobin A1c goal of less than 8.0% ([facility]) Use as directed . Test 3 times daily. Pt is on insulin Dx E11.9 1 Kit 2 Active Pylera 140-125-125 MG Oral Capsule (Bis Axuxfg-Abbgpioc-Bzyf acyc) 3 capsules 4 times/day x 10 days 120 Capsule 2 Active Additional Information Patient not taking.Reported on 10/16/2023 Atenolol 25 MG Oral Tablet (Tenormin)Indication s:Atherosclerosis of [place] coronary artery of [place] heart without angina pectoris take 1/2 tablet [...] Nasal Suspension (Flonase)Indications :Allergic rhinitis Administer 1 [place] into nostril in the morning. 48 mL 1 3 Active BD Pen Needle Short U/F 31G X 8 MM (Insulin Pen Needle)Indications:T ype 2 diabetes mellitus with hemoglobin A1c goal of less than 8.0% ([facility]) USE 5 TIMES DAILY WITH INSULIN DX [...] hemoglobin A1c goal of less than 8.0% ([facility]) Use to test 3 times a day. [...] every morning 90 Tablet 1 4 Active Hydroxychloroquine Sulfate 200 MG Oral Tablet (Plaquenil)Indicatio ns:HLA B27 (HLA B27 positive) Take 2 Tablets by mouth at bedtime. 180 Tablet 4 Active Warfarin Sodium 5 MG Oral Tablet (Coumadin)Indication s:Chronic atrial fibrillation (HCC) Take 1-2 Tablets by mouth every evening. Or take as instructed by the [facility]. Due for INR. 180 Tablet 4 Active Insulin Glargine Solostar 100 UNIT/ML Subcutaneous Solution Pen-injector (Basaglar KwikPen)Indications: Type 2 diabetes mellitus with hemoglobin A1c goal of less than 8.0% ([facility]),Diabetes mellitus, type II, insulin dependent ([facility]) inject 20 units subcutaneously every morning and inject 10 units every NIGHT 30 mL 4 Active Trelegy Ellipta 100-62.5-25 MCG/ACT Aerosol Powder Breath Activated (Fluticasone-Umeclid inium-Vilanterol) inhale 1 puff by mouth and INTO THE LUNGS every morning 60 Blister Dosing Unit 5 4 Active predniSONE 5 MG Oral Tablet (Deltasone)Indicatio ns:nursing home current use of systemic steroids Take 1 Tablet by mouth in the morning. 30 Tablet 1 4 Active Albuterol Sulfate HFA 108 (90 Base) MCG/ACT Inhalation Aerosol SolutionIndications: Mild persistent asthma with acute exacerbation,COPD, group B, by GOLD 2017 classification ([facility]) inhale 1 TO 2 puffs by mouth [...] hemoglobin A1c goal of less than 8.0% ([facility]) inject 20 units with breakfast 10 units with SNACK and 10 units with dinner (CF:1:40 OVER 160) 45 mL 3 4 Active Hospital, Clinic, or Other Facility Administered Medication Ordered Dose Route Frequency Start Date End Date Status Albuterol Sulfate (Proventil) (2.5 MG/3ML) 0.083% inhalation solution 2.5 mgIndications:COPD exacerbation ([facility]) 2.5 mg NEBULIZER ONCE PRN 10/16/2023 10/15/2024 [...] as of this encounter (statuses as of 11/28/2023) Active Problems Problem Noted Date Diagnosed Date Moderate episode of recurrent major depressive d isorder 10/16/2023 Reactive arthritis of multiple sites 07/05/2023 Food insecurity 07/03/2023 Overview: Per [facility] Protocol Diabetic peripheral neuropathy 09/13/2022 intermediate card tender current use of systemic steroids 06/20 History [...] situ 11/23/2018 Chronic atrial fibrillation 08/24/2018 Overview: [facility] Dr Armenta Diabetes mellitus, type [...] CORONARY ATHEROSCLEROSIS OF UNSPECIFIED TYPE OF VESSEL, HUGHES OR GRAFT Peptic ulcer Asthma, mild persistent HLA B27 (HLA B27 positive) documented as of this encounter (statuses as of 11/28/2023) Resolved Problems Problem Noted Date Diagnosed Date [...] as of this encounter (statuses as of 11/28/2023) Immunizations Name Administration Dates Next Due COVID-19 mRNA, LNP-s, No Pre serve, 2-Dose Series (Moderna) 10/23/2020,06/23/2020 H1N1 2008 Influenza, IM 04/06/2009 Pneumococcal Conjugate Vacci ne, 20-valent ([id number]) 11/19/2021 Pneumococcal Polysaccharide PPV23 (Pneumovax) 02/09/2007 Seasonal [...] Sign Reading Time Taken Comments Blood Pressure 118/80 11/28/2023 12:46 PM EDT Pulse 88 11/28/2023 12:46 PM EDT Temperature 36.3 C (97.4 F) 11/28/2023 12:46 PM E DT Respiratory Rate 16 11/28/2023 12:46 PM EDT Oxygen Saturation 97% 11/28/2023 12:47 PM EDT ra-amb Inhaled Oxygen Concentration - - Weight 100.2 kg (221 lb) 11/28/2023 12:46 PM EDT Height 180.3 cm (5' 11") 11/28/2023 12:46 PM EDT Body Mass Index 30.82 11/28/2023 12:46 PM EDT documented in this encounter Patient Instructions * Patient Instructions* Miguel Munoz MD - 11/28/2023 1:21 PM EDT Alan Pereira . [id number] Benefits of Quitting Smoking Why should I quit smoking? Smoking is bad for you and bad for others around you. Smoking causes cancer, heart attacks, hardening of the arteries, bronchitis, emphysema, cough, shortness of breath, wrinkles, and premature aging. It stains teeth and fingers, irritates the eyes, furs the tongue, and causes bad breath. People are living longer today than their parents did, so it makes sense to work on staying healthy and independent. One of the best ways to do this is to quit smoking. Benefits of quitting smoking It takes time to reverse many years' worth of smoking damage to your body, but some benefits of quitting smoking begin immediately. For example, you're financially better off on day one. Your health starts to improve right away, too, because you remove a former constant source of irritation from your lungs. People may comment that you no longer cough. Your blood circulation is likely to improve, so your hands and feet may feel warmer. Your teeth, breath, and fingers are no longer a turn-off. Benefits that you're less aware of also begin to occur. These include better resistance to colds and respiratory infections, less likelihood of major heart and circulation problems, less risk of high blood pressure or stroke, and less risk of developing cancer. The following arguments are often presented by smokers as justifications for their continuing to smoke: "I have to sometime, so I might as well enjoy life until then." True, but as a smoker you're much more likely to of a heart attack or cancer - neither of whichare very pleasant ways to go. "I'm only hurting myself." True, if you don't count the heartache and grief you may cause your loved ones by your early or permanent disability, or the damage of your smoke to others. "Lots of people who smoke live to ripe old ages in perfect health." True, but this is rare. Nearly all smokers have significant health problems. "Smoking is one of my pleasures. I don't want to quit." Smoking is associated with pleasure because the nicotine in tobacco is an addictive drug. Your bodywill continue to crave a regular supply until you can overcome the habit. Smoking is always a disadvantage to your health and that of your loved ones. "It's my choice and I choose to smoke." True. It is your choice. In a survey of older former smokers, more than 90% quit on their own because they decided to do so. The main reasons they gave for quitting were wanting to stay healthy, following health care provider's advice, regaining control of their lives, and making a loved one happy . [place] Department of Health Quit Line [employer] Free Quitline 1-453 QUIT NOW ( ) Your insurance company may also have more information and helpful programs to help you quit. Some may even help cover some of the costs. For example, [facility] members can call to find out about their smoking cessation program and medication coverage. Developed by Deborah Barry MD, for [employer]. Published by [employer]. Last modified: 2005-08-05 Last reviewed: 2005-05-25 This content is reviewed periodically and is subject to change as new health information becomes available. The information is intended to inform and educate and is not a replacement for medical evaluation, advice, diagnosis or treatment by a healthcare professional. Adult Health Advisor 2006.4 Index Adult Health Advisor 2006.4 Credits Copyright 2006 [employer] and/or one of its subsidiaries. All Rights Reserved. documented in this encounter Progress Notes * Miguel Munoz MD - 11/28/2023 12:53 PM EDT Images from the original note were not included. 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 Paralyzed Left Hemidiaphragm IDDM Atrial Fibrillation, Warfarin and Plavix Therapy status CAD, s/p PCI Chronic Low Dose Prednisone Therapy Status, 5 mg QD x years ?Right middle lobe pneumonia and left basilar atelectasis Current bronchodilator regimen: Trelegy, Rescue Albuterol 2-3/day PFT 2021 - Gold Stage - II CT Chest 2016 - Well preserved Lung Parenchyma Physical examination: Class 3 throat No JVD Bilateral coarse breath sounds with scattered coarse wheezing, no dullness S1, S2, no murmur Soft, distended abdomen Trace lower extremity edema Nonlateralizing Neuro examination Multifactorial dyspnea with pulmonary and cardiac risk factors as noted Declining exercise tolerance LDCT referral PFT 6 MWT NPOX on RA CXR PA/Lat View Smoking Cessation counseling provided. Meanwhile, continue with Trelegy and rescue albuterol therapy F/u 6 weeks Assessment Follow-up: Return in about 6 weeks (around 01/09/2024). 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 Paralyzed Left Hemidiaphragm IDDM Atrial Fibrillation CAD, s/p PCI Warfarin and Plavix Therapy status Chronic Low Dose Prednisone Therapy Status, 5 mg QD x years P Follow-up: Return in about 6 weeks (around 01/09/2024). | Check-out note: FT 2021 - Gold Stage - II CT Chest 2016 - Well preserved Lung Parenchyma LDCT referral PFT 6 MWT NPOX on RA CXR PA/Lat View Smoking Cessation counseling provided. F/u 6 weeks Miguel Munoz MD XR CHEST 2 VIEWS - 10/17/2023 11:31 am HISTORY Wheezing, SOB, cough TECHNIQUE Frontal and lateral chest radiographs are obtained. COMPARISON Chest x-ray 09/14/2022. FINDINGS Subtle right middle lobe ground-glass opacity partially silhouettes the right heart border. Persistent mild linear left basilar atelectasis with elevation of the left hemidiaphragm. No pleural effusion or pneumothorax. Unchanged cardiomediastinal silhouette including cardiac stent. Left chest wall cardiac pacemaker with leads projecting over the right atrium and right ventricle. No acute osseous abnormality. Spinal degenerative changes IMPRESSION IMPRESSION Right middle lobe opacity may reflect pneumonia or atelectasis in the appropriate clinical setting. Persistent mild left basilar atelectasis. Recommendation: Consider follow-up chest x-ray in 6 weeks after appropriate treatment. Subjective CC: Chief Complaint Patient presents with NEW PATIENT New pulm. COPD discuss intermediate card tender steroid use. C/o dull chest pain and SOB , dizzy and light headed.Feels nauseated. He feels he still has the pneumonia. HPI: Nursing Notes: Marivel Frye LPN 11/28/23 1252 Signed Chief Complaint Patient presents with NEW PATIENT New pulm. COPD discuss penitentiary steroid use. C/o dull chest pain and SOB , dizzy and light headed.Feels nauseated. He feels he still has the pneumonia. Interm History/Respiratory Symptoms Cough: yes-no colored phlegm Hemoptysis: no Sinus Symptoms: congestion Hospitalizations: no ED Trips: no Triggers: pollen,dust ,smoke,environmental Nocturnal: sleeps flat has severe neck injury CPAP/BiPAP/O2: no DME Supplier: no. Flu Vaccine: 2020 Pneumovax: 2007 Prevnar: 2021 COVID 19: x2. MMRC Dyspnea Scale = 4 (I am too breathless to leave the house or I am breathless when dressing) Asthma Control Test Question 11/28/2023 12:44 PM EDT - Filed by Marivel Frye LPN Please select the best response to the five questions below, by clicking the appropriate option button. In the past 4 weeks, how much of the time did your asthma keep you from getting as much done at work, school or at home? (1) All of the time During the past 4 weeks, how often have you had shortness of breath? (1) More than once a day During the past 4 weeks, how often did your asthma symptoms (wheezing, coughing, shortness of breath, chest tightness or pain) wake you up at night or earlier than usual in the morning? (2) 2 or 3 nights a week During the past 4 weeks, how often have you used your rescue inhaler or nebulizer medication (such as albuterol)? (1) 3 or more times per day How would you rate your asthma control during the past 4 weeks? (1) Not controlled at all Total ACT Adult Score (range: 5 - 25) 6 (Poorly Controlled) Total ACT Child Score (range: 0 - 27) Incomplete Objective Filed Vitals: 11/28/23 1246 11/28/23 1247 BP: 118/80 Pulse: 88 Resp: 16 Temp: 36.3 C (97.4 F) TempSrc: Tympanic SpO2: 98% 97% Weight: 100.2 kg (221 lb) Height: 1.803 m (5' 11") Exam: Const: No signs of acute distress present. Head/Face: Normal on inspection. Eyes: Conjunctivae clear. Pupils equal round and reactive to light. ENMT: Oropharynx: No erythema, exudate or masses. Posterior pharynx is normal. Neck: Supple and symmetric. Resp: Respiratory examination as outlined above CV: Rate is regular. Rhythm is regular. No heart murmur appreciated. Extremities: No edema of the lower limbs bilaterally. Skin: Skin is warm and dry. Neuro: Coordination normal. No involuntary movement. Psych: Patient's attitude is cooperative. Mood is normal. Affect is normal. Tests reviewed with the patient: XR CHEST 2 VIEWS Result Date: 10/18/2023 IMPRESSION Right middle lobe opacity may reflect pneumonia or atelectasis in the appropriate clinical setting. Persistent mild left basilar atelectasis. Recommendation: Consider follow-up chest x-rayin 6 weeks after appropriate treatment. Significant Abnormal Result: The information above was relayed directly by me by [employer] secure messaging to BRIGITTE BYRD on 10/18/2023 at 11:50 amwho expressed understanding. Available Radiologic data was reviewed by me in PACS. The images were shown to the patient and findings were discussed with the patient. HOME MEDICATIONS: NovoLOG FlexPen 100 UNIT/ML Subcutaneous Solution Pen-injector (insulin aspart) LORazepam 0.5 MG Oral Tablet (Ativan) HYDROcodone-Acetaminophen 10-325 MG Oral Tablet Albuterol Sulfate HFA 108 (90 Base) MCG/ACT Inhalation Aerosol Solution predniSONE 5 MG Oral Tablet (Deltasone) Trelegy Ellipta 100-62.5-25 MCG/ACT Aerosol Powder Breath Activated (Sugwrjuqveh-Glbfivtzqjtt-Dezopqqpch) Insulin Glargine Solostar 100 UNIT/ML Subcutaneous Solution Pen-injector (Basaglar KwikPen) Warfarin Sodium 5 MG Oral Tablet (Coumadin) Hydroxychloroquine Sulfate 200 MG Oral Tablet (Plaquenil) Potassium Chloride Karis ER 10 MEQ Oral Tablet Extended Release Pregabalin 100 MG Oral Capsule (Lyrica) traZODone HCl 50 MG Oral Tablet (Desyrel) FreeStyle Test In Vitro Strip (Glucose Blood) DULoxetine HCl 30 MG Oral Capsule Delayed Release Particles (Cymbalta) Accu-Chek Guide In Vitro Strip (Glucose Blood) Loratadine 10 MG Oral Tablet (Claritin) Nitroglycerin 0.4 MG Sublingual Tablet Sublingual (Nitrostat) Montelukast Sodium 10 MG Oral Tablet (Singulair) Pantoprazole Sodium 40 MG Oral Tablet Delayed Release (Protonix) Baclofen 10 MG Oral Tablet (Lioresal) linaCLOtide 290 MCG Oral Capsule BD Pen Needle Short U/F 31G X 8 MM (Insulin Pen Needle) Fluticasone Propionate 50 MCG/ACT Nasal Suspension (Flonase) Atenolol 25 MG Oral Tablet (Tenormin) Accu-Chek Guide w/Device Kit Ipratropium-Albuterol 0.5-2.5 (3) MG/3ML Inhalation Solution (Duoneb) Aspirin Low Dose 81 MG Oral Tablet Chewable magnesium citrate solution furosemide (LASIX) 20 MG Tablet isosorbide dinitrate (ISORDIL) 10 MG Tablet Insulin Syringe-Needle U-100 30G X 1/2" 0.3 ML MISC MULTIVITAMINS PO TABS Zoster Vac Recomb Adjuvanted 50 MCG/0.5ML Intramuscular Suspension Reconstituted (Shingrix) Pylera 140-125-125 MG Oral Capsule (Bis Cwsjfo-Bfsrhptw-Vcckbqga) polyethylene glycol 3350 (MIRALAX) 255 gram powder Albuterol Sulfate (Proventil) (2.5 MG/3ML) 0.083% inhalation solution 2.5 mg Albuterol Sulfate (Proventil) (5 MG/ML) 0.5% *conc* inhalation solution 2.5 mg Albuterol Sulfate (Proventil) (2.5 MG/3ML) 0.083% inhalation solution 2.5 mg ROS: No reported history of Hemoptysis, Hematemesis, Melena No reported history of Dysuria, Hematuria, Flank Pain No reported history of chronic headache, seizures No reported history of Fall or trauma . No reported history of recent change in weight or appetite. Past Medical History: Diagnosis Date Anomalous AV excitation carter-parkinson white syndrome Asthma, mild persistent Benign neoplasm of colon 08/04/09 adenomatous tissue--repeat 3 years Bipolar I disorder, most recent episode depressed (HCC) Certain sequelae of myocardial infarction Coronary atherosclerosis DM type 2, goal A1C below 8.0 01/22/2009 Per Diabetes Taxonomy. 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 CARDIAC SURGERY PROCEDURE NEC 12/2009 cardiac cath, s/p 16 cardiac caths since 1996 COLONOSCOPY 2004 COLONOSCOPY 10/10/2013 adenomatous polyp, repeat 5 yrs/done @ [facility] COLONOSCOPY THRU STOMA, W/BIOPSY 08/04/2009 adenomatous tissue--repeat 3 years COLONOSCOPY, DIAGNOSTIC (RECTUM) N/A 08/12/2021 [facility], Colonoscopy, Internal hemorrnoids, multi polyps in hepatic flexure & descending / biopsies benign adenomatous polyp and a hyperplastic polyp / 5 year recall / EGD, FLEXIBLE, DIAGNOSTIC 09/08/2014 esoophagitis/[facility] EGD, FLEXIBLE, DIAGNOSTIC N/A 08/12/2021 [facility], EGD / diffuse gastritis, otherwise normal / biopsies normal / EGD, FLEXIBLE,W/ENDOSCOPIC US 02/08/2019 + H pylori, gastritis / [facility] EGD, W/ENDOSCOPIC US N/A 11/14/2019 gastritis/cystic lesion in pancreatic head/one stone in CBD/ESOPHAGOGASTRODUODENOSCOPY (EGD), FLEXIBLE, TRANSORAL, ENDOSCOPIC ULTRASOUND performed by Jorge Al, DO at OR [facility] ERCP, DIAGNOSTIC, SPECIMEN COLLECTION N/A 11/14/2019 major papilla bulging, adjacent to diverticulum/filling defect consistent with stone/choledocholiathiasis/ENDOSCOPIC RETROGRADE CHOLANGIOPANCREATOGRAPHY (ERCP) DIAGNOSTIC performed by Jorge Al, DO at OR [facility] INFORMATION ?1989 Urethrotomy OTHER (INFORMATION) heart stent x7, from [id number] OTHER (INFORMATION) 07/2006 heart cath at [place] PACEMAKER INSERTION PER 2018 REMOVAL OF APPENDIX 11/06/2013 lap appy [facility] [place] 11/06/13 [place] Social History Socioeconomic History Marital status: Number of children: 3 Occupational History 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 Tobacco Use Smoking status: Every Day Current packs/day: 0.50 Average packs/day: 0.5 packs/day for 51.8 years (25.9 ttl pk-yrs) Types: Cigarettes, Pipe, Cigars Start date: 1971 Smokeless tobacco: Never Tobacco comments: 10 cpd. Smoker. 11/28/23. Vaping Use Vaping status: Never Used Substance and Sexual Activity Alcohol use: Yes Alcohol/week: 0.0 standard drinks of alcohol Comment: rare alcohol use Drug use: No Sexual activity: Yes Partners: Female Social History Narrative 1 dog. No mold. Social Determinants of Health Financial Resource Strain: Low Risk (06/07/2023) Financial Resource Strain Do you have any trouble paying for your medications, or do you think you might in the future? (Adult - for ages 18 years and over): No Food Insecurity: No Food Insecurity (06/07/2023) Food Insecurity Do you need food for this week? (Adult - for ages 18 years and over): No Recent Concern: Food Insecurity - Food Insecurity Present (06/07/2023) Hunger Vital Sign Worried About Running Out of Food in the Last Year: Sometimes true Ran Out of Food in the Last Year: Sometimes true Transportation Needs: No Transportation Needs (06/07/2023) Transportation Needs Do you have trouble getting a ride to medical visits or work? (Adult - for ages 18 years and over):Never True Social Connections: Socially Integrated (06/07/2023) Social Connections How often do you feel lonely or isolated from those around you? (Adult - for ages 18 years and over): Rarely Housing Stability: High Risk (06/07/2023) Housing Stability Do you currently live in a residential or have no steady place to sleep at night? (Adult - for ages 18 years and over): Yes Do you think you are at risk of becoming homeless? (Adult - for ages 18 years and over): No Family History Problem Relation Name Age of Onset Heart Disorder Mother valve replacement, feb Other (kidney disease) Father feb Cancer Sister breast Arthritis Sister Review of patient's allergies indicates: Allergen Reactions Lipitor [Atorvastatin Calcium] Muscle pain Rosuvastatin Muscle pain Diclofenac Resin Rash Voltaren The following information was reviewed/discussed with the patient: Benefits & harms of screening Potential indications for follow-up testing, if/when necessary Risk of over-diagnosis, false positive findings, and radiation exposure Importance of cigarette smoking abstinence, if applicable Annual adherence to lung cancer screening Impact of comorbidities and ability or willingness to undergo diagnostic testing and/or treatment if something concerning is identified during screening. documented in this encounter Nursing Notes * Marivel Frye LPN - 11/28/2023 12:48 PM EDT Chief Complaint Patient presents with NEW PATIENT New pulm. COPD discuss intermediate card tender steroid use. C/o dull chest pain and SOB , dizzy and light headed.Feels nauseated. He feels he still has the pneumonia. Interm History/Respiratory Symptoms Cough: yes-no colored phlegm Hemoptysis: no Sinus Symptoms: congestion Hospitalizations: no ED Trips: no Triggers: pollen,dust ,smoke,environmental Nocturnal: sleeps flat has severe neck injury CPAP/BiPAP/O2: no DME Supplier: no. Flu Vaccine: 2020 Pneumovax: 2006 Prevnar: 2021 COVID 19: x2. MMRC Dyspnea Scale = 4 (I am too breathless to leave the house or I am breathless when dressing) Asthma Control Test Question 11/28/2023 12:44 PM EDT - Filed by Marivel Frye LPN Please select the best response to the five questions below, by clicking the appropriate option button. In the past 4 weeks, how much of the time did your asthma keep you from getting as much done at work, school or at home? (1) All of the time During the past 4 weeks, how often have you had shortness of breath? (1) More than once a day During the past 4 weeks, how often did your asthma symptoms (wheezing, coughing, shortness of breath, chest tightness or pain) wake you up at night or earlier than usual in the morning? (2) 2 or 3 nights a week During the past 4 weeks, how often have you used your rescue inhaler or nebulizer medication (such as albuterol)? (1) 3 or more times per day How would you rate your asthma control during the past 4 weeks? (1) Not controlled at all Total ACT Adult Score (range: 5 - 25) 6 (Poorly Controlled) Total ACT Child Score (range: 0 - 27) Incomplete documented in this encounter Plan of Treatment Upcoming Encounters Date Type Department Care Team (Late st Contact Info) Description 11/28/2023 3:15 PM EDT Imaging Radiology [facility]st [facility] 132 [facility] [place] [address] Community acquired pneumonia of right middle lobe of lung 12/12/2023 6:30 AM EDT Anticoagulation Centralized Clinical Pharmacy Services, Corona Doss [address] [place] [address] [place] [address] [place] [address] 12/18/2023 6:10 PM EDT Pharmacy Pharmacy, [facility] 132 [facility] [place] [address] [place] [address] 12/22/2023 3:20 PM EDT Office Visit Rheumatology [address] [place] [phone] Demetrius Aj MD [facility] [address] 12/25/2023 2:00 PM EDT PulmDiagnostic Pulmonary Function Lab, [address] [place] [address] [facility] Pul Function Tech [address] [place] [address] [place] [address] 01/22/2024 2:00 PM EDT Office Visit Family Medicine [address] [place] [phone] Brigitte Byrd MD [address] [place] [address] [place] [address] 02/13/2024 12:20 PM EST Office Visit Pulmonary Medicine, [address] [place] [address] Miguel Munoz MD [address] [place] [address] Pending Results Name Type Priority Associated Diagnoses Date /Time [id number], QN Lab Routine History of tobacco abuse Dyspnea and respiratory abnormalities COPD, severity to be determined (HCC) 11/28/2023 1:53 PM EDT Scheduled Orders Name Type Priority Associated Diagnoses Orde r Schedule LUNG CANCER SCREENING PROGRAM REFERRAL Medical Imaging Routine History of tobacco abuse Expected: 11/28/2023, Expires: 11/27/2025 DIFFUSION CAPACITY (DLCO) Procedures Routine History of tobacco abuse Dyspnea and respiratory abnormalities COPD, severity to be determined (HCC) Expected: 12/05/2023, Expires: 12/27/2024 LUNG VOLUMES (PLETHYSMOGRAPHY) Procedures Routine History of tobacco abuse Dyspnea and respiratory abnormalities COPD, severity to be determined (HCC) Expected: 12/05/2023, Expires: 12/27/2024 SPIROMETRY B/A BRONCHODILATOR Procedures Routine History of tobacco abuse Dyspnea and respiratory abnormalities COPD, severity to be determined (HCC) Expected: 12/05/2023, Expires: 12/27/2024 NOCTURNAL HOME OXIMETRY (OP) Procedures Routine History of tobacco abuse Dyspnea and respiratory abnormalities COPD, severity to be determined (HCC) Ordered: 11/28/2023 [id number], QN Lab Routine History of tobacco abuse Dyspnea and respiratory abnormalities COPD, severity to be determined (HCC) Expected: 11/28/2023, Expires: 11/27/2024 PULMONARY STRESS TESTING Procedures Routine History of tobacco abuse Dyspnea and respiratory abnormalities COPD, severity to be determined (HCC) Expected: 11/29/2023, Expires: 12/27/2024 Scheduled Procedures Name Priority Associated Diagnoses Date/Ti me COLONOSCOPY FLEXIBLE PROXIMAL DIAGNOSTIC Recall History of colon polyps Health Maintenance Due Date Last Done Comments DISCUSS TOBACCO CESSATION (REFER TO SMARTSET #3653) 1955 Zoster Vaccines (1 of 2) 02/22/1975 [...] as of this encounter Visit Diagnoses Diagnosis History of tobacco abuse- Primary Personal history of tobacco use, presenting hazards to health Dyspnea and respiratory abnormalities Other dyspnea and respiratory abnormality COPD, severity to be determined (HCC) Chronic airway obstruction, not elsewhere classified Community acquired pneumonia of right middle lobe of lung documented in this encounter Advance Directives * [...] Directives occurred with: Not Discussed Care Teams Manager Track Relationship Specialty Start Date End Date Brigitte Byrd MD [address] [place] [address] [place] Sotelo [phone] PCP - General Family Medicine 11/23/18 documented as of this encounter
--- OUTSIDE RECORDS SUMMARY | 2024-01-09 00:07 | External Medical Summary | Summary of Care ---
Author Name Unknown Organization [facility] Address [address] [facility] [place] [address] Phone [phone] Care Team Providers Care Group Teacher Name Role Phone Brigitte Byrd MD Primary Care Prov ider Reason for Visit * Reason Comments Outpatient Testing Encounter Details Date Type Department Care Team (Late st Contact Info) Description 11/28/2023 1:50 PM EDT Laboratory Laboratory, [facility] [phone] [facility] [address] Chronic atrial fibrillation (HCC); History of tobacco abuse; Dyspnea and respiratory abnormalities; COPD, severity to be determined ([facility]) Allergies Active Allergy Reactions Criticality Noted Date Comments Diclofenac Resin Rash Low 11/15/1999 Voltaren Atorvastatin Calcium Muscle pain 11/23/2018 Rosuvastatin Muscle pain 11/23/2018 documented as of this encounter (statuses as of 11/28/2023) Medications Medication Sig Dispensed Refills Start Date End Date Status MULTIVITAMINS PO TABS one tab daily Active Insulin Syringe-Needle U-100 30G X 1/2" 0.3 ML MISCIndications:DM type 2 nursing care encounter ([facility]) Use as directed. 1 Box [...] A1c goal of less than 8.0% ([facility]) Use as directed . Test 3 times daily. Pt is on insulin Dx E11.9 1 Kit 2 Active Pylera 140-125-125 MG Oral Capsule (Bis Ctvgre-Ywekordu-Xkqt acyc) 3 capsules 4 times/day x 10 days 120 Capsule 2 Active Additional Information Patient not taking.Reported on 10/16/2023 Atenolol 25 MG Oral Tablet (Tenormin)Indication s:Atherosclerosis of [place] coronary artery of [place] heart without angina pectoris take 1/2 tablet [...] Nasal Suspension (Flonase)Indications :Allergic rhinitis Administer 1 Dyer into nostril in the morning. 48 mL [...] MG Oral Tablet (Coumadin)Indication s:Chronic atrial fibrillation ([facility]) Take 1-2 Tablets by mouth every evening. Or take as instructed by the [facility]. Due for INR. 180 Tablet 4 Active Insulin Glargine Solostar 100 UNIT/ML Subcutaneous Solution Pen-injector (Basaglar Harish)Indications: Type 2 diabetes mellitus with hemoglobin A1c goal of less than 8.0% ([facility]),Diabetes mellitus, type II, insulin dependent ([facility]) inject 20 units subcutaneously every morning and inject 10 units every NIGHT 30 mL 4 Active Trelegy Ellipta 100-62.5-25 MCG/ACT Aerosol Powder Breath Activated (Fluticasone-Umeclid inium-Vilanterol) inhale 1 puff by mouth and INTO THE LUNGS every morning 60 Blister Dosing Unit 5 4 Active predniSONE 5 MG Oral Tablet (Deltasone)Indicatio ns:half-way current use of systemic steroids Take 1 Tablet by mouth in the morning. 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 06/20 History [...] situ 11/23/2018 Chronic atrial fibrillation 08/24/2018 Overview: [facility] Dr Armenta Diabetes mellitus, type [...] CORONARY ATHEROSCLEROSIS OF UNSPECIFIED TYPE OF VESSEL, [place] OR GRAFT Peptic ulcer Asthma, mild persistent [...] IM 04/06/2009 Pneumococcal Conjugate Vacci ne, 20-valent ([id number]) 11/19/2021 Pneumococcal Polysaccharide PPV23 (Pneumovax) 02/09/2007 Seasonal [...] Description 11/28/2023 3:15 PM EDT Imaging Radiology [address] 132 [place] [address] Community acquired pneumonia of right middle lobe of lung 12/12/2023 6:30 AM EDT Anticoagulation Centralized Clinical Pharmacy Services, Corona Doss [address] [place] [address] [place]ole[place] [address] [place] [address] 12/18/2023 6:10 PM EDT Pharmacy Pharmacy, [facility] 132 [place] [address] [facility] 132 [place] [address] 12/22/2023 3:20 PM EDT Office Visit Rheumatology [address] [place] [phone] Demetrius Aj MD [address] [facility] [place] [address] 12/25/2023 2:00 PM EDT PulmDiagnostic Pulmonary Function Lab, [facility] 132 [place] [address] [place], Pulm Function Tech 2 132 [facility] [place] [address] 01/22/2024 2:00 PM EDT Office Visit Family [address] [place] [phone] Brigitte Byrd MD [address] [place] [address] [place] [address] 02/13/2024 12:20 PM EST Office Visit Pulmonary Medicine, [facility] 132 [place] [address] Miguel Munoz MD [address] [facility] [address] Pending Results Name Type Priority Associated Diagnoses Date /Time PT INR Lab Routine Chronic atrial fibrillation (HCC) 11/28/2023 1:53 PM EDT [id number], QN Lab Routine History of tobacco abuse Dyspnea and respiratory abnormalities COPD, severity to be determined (HCC) 11/28/2023 1:53 PM EDT Scheduled Procedures Name Priority Associated Diagnoses Date/Ti me COLONOSCOPY FLEXIBLE PROXIMAL DIAGNOSTIC Recall History of colon polyps Health Maintenance Due Date Last Done Comments DISCUSS TOBACCO CESSATION (REFER TO SMARTSET #7112) 1955 Zoster Vaccines (1 of 2) 02/22/1975 [...] Diagnosis Chronic atrial fibrillation (HCC) Atrial fibrillation History of tobacco abuse Personal history of tobacco use, presenting hazards [...] Directives occurred with: Not Discussed Care Teams Group Teacher Relationship Specialty Start Date End Date Brigitte Byrd MD [address] [place] [address] [place]otelo [phone] PCP - General Family Medicine 11/23/18 documented as of this encounter
--- OUTSIDE RECORDS SUMMARY | 2024-01-09 00:07 | External Medical Summary | Summary of Care ---
Author Name Unknown Organization [facility] Address [address] [facility] [place] [address] Phone [phone] Care Team Providers Care Manpower Development Specialist Name Role Phone Brigitte Byrd MD Primary Care Prov ider Reason for Visit * Reason Comments Dosage Adjustment Via Phone (anticoag Cl inic) Encounter Details Date Type Department Care Team (Late st Contact Info) Description 11/21/2023 6:30 AM EDT Anticoagulation Centralized Clinical Pharmacy Services, Corona Doss [address] [place] [address] [place] [address] [place] [address] Chronic atrial fibrillation (HCC)* Allergies Active Allergy Reactions Criticality Noted Date Comments Diclofenac Resin Rash Low 11/15/1999 Voltaren Atorvastatin Calcium Muscle pain 11/23/2018 Rosuvastatin Muscle pain 11/23/2018 documented as of this encounter (statuses as of 11/21/2023) Medications Medication Sig Dispensed Refills Start Date [...] hemoglobin A1c goal of less than 8.0% ([facility]) Use as directed . Test 3 times daily. Pt is on insulin Dx E11.9 1 Kit 2 Active Pylera 140-125-125 MG Oral Capsule (Bis Phorbr-Cxcsafof-Esqy acyc) 3 capsules 4 times/day x 10 days 120 Capsule 2 Active Additional Information Patient not taking.Reported on 10/16/2023 Atenolol 25 MG Oral Tablet (Tenormin)Indication s:Atherosclerosis of [place] coronary artery of [place] heart without angina pectoris take 1/2 tablet [...] Nasal Suspension (Flonase)Indications :Allergic rhinitis Administer 1 Codorus into nostril in the morning. 48 mL [...] evening. Or take as instructed by the [facility] Cou[facility]. Due for INR. 180 Tablet 4 Active Insulin Glargine Solostar 100 UNIT/ML Subcutaneous Solution Pen-injector (Basaglar KwikPen)Indications: Type 2 diabetes mellitus with hemoglobin A1c goal of less than 8.0% ([facility]),Diabetes mellitus, type II, insulin dependent ([facility]) inject 20 units subcutaneously every morning and inject 10 units every NIGHT 30 mL 4 Active Trelegy Ellipta 100-62.5-25 MCG/ACT Aerosol Powder Breath Activated (Fluticasone-Umeclid inium-Vilanterol) inhale 1 puff by mouth and INTO THE LUNGS every morning 60 Blister Dosing Unit 5 4 Active predniSONE 5 MG Oral Tablet (Deltasone)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 06/20 History [...] situ 11/23/2018 Chronic atrial fibrillation 08/24/2018 Overview: [facility] Dr Armenta Diabetes mellitus, type [...] CORONARY ATHEROSCLEROSIS OF UNSPECIFIED TYPE OF VESSEL, [place] OR GRAFT Peptic ulcer Asthma, mild persistent HLA B27 (HLA B27 positive) documented as of this encounter (statuses as of 11/21/2023) Resolved Problems Problem Noted Date Diagnosed Date [...] as of this encounter (statuses as of 11/21/2023) Immunizations Name Administration Dates Next Due COVID-19 mRNA, LNP-s, No Pre serve, 2-Dose Series (Moderna) 10/23/2020,06/23/2020 H1N1 2009 Influenza, IM 04/06/2009 Pneumococcal Conjugate Vacci ne, 20-valent ([id number]) 11/19/2021 Pneumococcal Polysaccharide PPV23 (Pneumovax) 02/09/2007 Seasonal Influenza, PF, 6 M & above, IM , (FluLaval or Fluzone) 01/02/2019,02/16/2018 Seasonal Influenza, QUAD, wi th Preserv, 6 mons & Above, 0.5 mL, IM 02/02/2021 Seasonal Influenza, Quadriva lent, No Preserve, IM 01/14/2020,01/28/2016 Seasonal Influenza, Split, I IV3, With Preserve, Inj 02/04/2014,12/13/2012,12/15/2011,01/06,01/21/2010,02/18/2009,04/24/2008 ,02/09/2007 TDAP (age 10 and older)(Boostrix) 02/16/2018 TDAP, Age 7 and older, IM (Adacel) 08/13/2007 documented as of this encounter Social History Tobacco Use Types Packs/Day Years Used Date Smoking Tobacco: Every Day Cigarettes 0.5 51.7 Started: 1972 Pipe Cigars Smokeless Tobacco: Never [...] Notes * Courtney Paulino PHARM Tech - 11/21/2023 11:17 AM EDT Contacts Contact Date/Time Type Contact Phone/Fax 11/21/2023 11:15 AM EDT Phone (Outgoing) Alan Pereira Jr. (Self) [phone] (M) Spoke to Patient Subjective Patient Findings Positives: Bruising (Arm is bruised from a recent fall) Negatives: Signs/symptoms of bleeding, Change in health, Change in activity, Upcoming invasive procedure, Missed doses, Extra doses, Change in medications, Change in diet/appetite Comments: Bruising: Patient's present status and/or INR do not dictate an adjustment in warfarin dosage at this time, however, counseled patient on concerns over unusual bruising. Discussed with patient that being on warfarin will make them bruise easier and if patient's bruises become larger in size or darker in color to contact the Anticoagulation Clinic. Advised patient to contact Anticoagulation Clinic if any unusual bruising or bleeding, recent illness, changes in medication, or questions/concerns. PT/INR results, Coumadin dose instructions, and next PT/INR date communicated as noted by Pharmacist: Yes LUCY COOPER 11/21/2023, 11:18 AM * Dorinda Spears [facility] - 11/21/2023 9:18 AM EDT Coumadin Clinic (region specific) Objective Current Warfarin Dose As of 11/21/2023 Warfarin maintenance plan: 5 mg (5 mg x 1) every Mon, Tracey; 10 mg (5 mg x 2) all other days INR Result As of 11/21/2023 INR goal: 2.0-3.0 INR used for dosin.91 (11/20/2023) Assessment & Plan Warfarin Plan As of 11/21/2023 Full warfarin instructions: 5 mg every Mon, Tracey; 10 mg all other days No change documented: Dorinda pSears RPh Next INR check: 12/11/2023 Repeat PT/INR in 3 week(s) Weekly dose: not changed Additional Dosing Information: Description [facility] to contact patient with dose instructions as noted. Dorinda Spears RPh 11/21/2023, 9:18 AM documented in this encounter Plan of Treatment Upcoming Encounters Date Type Department Care Team (Late st Contact Info) Description 11/22/2023 2:30 PM EDT PulmDiagnostic Pulmonary Function Lab, [facility] [address] [place] [address] [place], [facility] [place] [address] 11/28/2023 1:00 PM EDT Office Visit Pulmonary Medicine, [facility] 132 [place] [address] Miguel Munoz MD [address] [facility] [address] 12/18/2023 6:10 PM EDT Pharmacy Pharmacy, [facility] 132 [facility] [place] [address] [facility] [place] [address] 12/22/2023 3:20 PM EDT Office Visit Rheumatology [address] [place] [phone] Demetrius Aj MD [facility] [address] 01/22/2024 2:00 PM EDT Office Visit Family Medicine [address] [place] [phone] Brigitte Byrd MD [address] [place] [address] [place] [address] Scheduled Procedures Name Priority Associated Diagnoses Date/Ti me COLONOSCOPY FLEXIBLE PROXIMAL DIAGNOSTIC Recall History of colon polyps Health Maintenance Due Date Last Done Comments DISCUSS TOBACCO CESSATION (REFER TO SMARTSET #4230) 1955 Zoster Vaccines (1 of 2) 02/22/1975 [...] 04/18/2024 10/17/2023, 02/25, 09/14/2022, Additional history exists O2 ASSESSMENT COMPLETED IN PAST YEAR FOR COPD 10/15/2024 10/16/2023 Albumin/Creatinine Ratio 10/16/2024 024, 09/14/2022, 05/27/2021, Additional history exists GFR 10/16/2024 10/17/2023, 06/25, 07/10/2023, Additional history exists Colonoscopy 08/12/2026 08/12/2021, 09/24, 08/04/2009 Colorectal Cancer [...] Not on filedocumented as of this encounter Procedures Procedure Name Priority Date/Time Associated Diagnosis Comments OUTSIDE LAB-PT/INR Routine 11/20/2023 documented in this encounter Results * OUTSIDE LAB-PT/INR (11/20/2023) INR-OUTSIDE LAB 2.91 [facility] History Per Patient LABORATORY [address] [address] documented in this encounter Visit Diagnoses Diagnosis Chronic atrial [...] Directives occurred with: Not Discussed Care Teams Manpower Development Specialist Relationship Specialty Start Date End Date Brigitte Byrd MD [address] [place] [address] [place] Sotelo [phone] PCP - General Family Medicine 11/23/18 documented as of this encounter
--- OUTSIDE RECORDS SUMMARY | 2024-01-09 00:07 | External Medical Summary ---
Author Name Unknown Address Unknown Organization : Laboratory Report Ordering Provider Test Date Status ESVIN GUTIÉRREZI 11/28/2023 13:53:56 Final Observation Date Value Abnormality Reference (Units ) Status Alpha-1 antitrypsin 11/28/2023 13:53:56 145 83-199 (mg/dL) Final
Test Performed at:
[facility]
[address] [facility]
[place] [address]
Praful Craft M.D., Ph.D.,Director of Laboratories Performing Location
--- OUTSIDE RECORDS SUMMARY | 2024-01-09 00:07 | External Medical Summary ---
Author Name Unknown Address Unknown Organization K0G:LABORATORY [place] [address] [place] [address] Laboratory Report Ordering Provider Test Date Status MODE AVILA 11/28/2023 13:53:56 Final Standing order for pt/inr. < br/>Please draw pt/inr every 1 to 4 weeks as requested
Results to [facility] FAX results to [phone]

Warfarin Therapy
INR: 2.0-3.0 conventional anticoagulation
INR: 2.5-3.5 high intensity anticoagulation Observation Date Value Abnormality Reference (Units ) Status PT 11/28/2023 13:53:56 25.0 Above high normal 11 .6-15.2 (seconds) Final INR 11/28/2023 13:53:56 2.2 Above high normal 0. 8-1.2 Final Performing Location LABORATORY [facility] [address] [place] [address]
--- OUTSIDE RECORDS SUMMARY | 2024-01-09 00:08 | External Medical Summary | Summary of Care ---
Author Name Unknown Organization [facility] Address [address] [facility] [address] Phone [phone] Care Team Providers Care Machine Silk Screen Printer Name Role Phone Brigitte Byrd MD Primary Care Prov ider Encounter Details Date Type Department Care Team (Late st Contact Info) Description 11/20/2023 Result Scan Unspecified Department <No scans attached> Allergies Active Allergy Reactions Criticality Noted Date [...] Active Pylera 140-125-125 MG Oral Capsule (Bis Btlqfv-Kczbucrv-Qdhz acyc) 3 capsules 4 times/day x 10 days 120 Capsule 2 Active Additional Information Patient not taking.Reported on 10/16/2023 Atenolol 25 MG Oral Tablet (Tenormin)Indication s:Atherosclerosis of [place] coronary artery of [place]ana heart [...] Nasal Suspension (Flonase)Indications :Allergic rhinitis Administer 1 [place] into nostril in the morning. 48 mL 1 3 Active BD Pen Needle Short U/F 31G X 8 MM (Insulin Pen Needle)Indications:T ype 2 diabetes mellitus with hemoglobin A1c goal of less than 8.0% ([facility]) USE 5 TIMES DAILY WITH INSULIN DX [...] [facility]),Diabetes mellitus, type II, insulin dependent (HCC) USE [...] less than 8.0% ([facility]) Use to test 3 times a day. [...] Or take as instructed by the [facility]. Due for INR. 180 Tablet [...] Active predniSONE 5 MG Oral Tablet (Deltasone)Indicatio ns:halfway current use of systemic steroids Take 1 [...] [facility]acy Protocol Diabetic peripheral neuropathy 09/13/2022 halfway current use of systemic steroids 06/20 History [...] situ 11/23/2018 Chronic atrial fibrillation 08/24/2018 Overview: [facility] Dr Armenta Diabetes mellitus, type [...] CORONARY ATHEROSCLEROSIS OF UNSPECIFIED TYPE OF VESSEL, RINCON OR GRAFT Peptic ulcer Asthma, mild persistent [...] IM 04/06/2009 Pneumococcal Conjugate Vacci ne, 20-valent ([id number]) 11/19/2021 Pneumococcal Polysaccharide PPV23 (Pneumovax) 02/09/2007 Seasonal [...] No 06/07/2023 Does the household have a [facility] source of income? (Household - for [...] 2:30 PM EDT PulmDiagnostic Pulmonary Function Lab, [facility] [address] [facility] [place] [address] [address], [address] [facility] [place] [address] 11/28/2023 1:00 PM EDT Office Visit Pulmonary Medicine, [facility] [address] [facility] [place] [address] Miguel Munoz [facility] [address] [facility] [address] 12/18/2023 6:10 PM EDT Pharmacy Pharmacy, [address] [place] [address] [facility] [address] [place] [address] 12/22/2023 3:20 PM EDT Office Visit Rheumatology [address] [place] [phone] Demetrius Aj MD [address] [place] [address] [place] [address] 01/22/2024 2:00 PM EDT Office Visit Family Medicine [address] [place] [phone] Brigitte Byrd MD [address] [place] [address] [place] [address] Scheduled Procedures Name Priority Associated Diagnoses Date/Ti me COLONOSCOPY FLEXIBLE PROXIMAL DIAGNOSTIC Recall History of colon polyps Health Maintenance Due Date Last Done Comments DISCUSS TOBACCO CESSATION (REFER TO SMARTSET #2661) 1955 Zoster Vaccines (1 of 2) 02/22/1975 [...] Name Priority Date/Time Associated Diagnosis Comments OUTSIDE LAB RESULTS 11/20/2023 documented in this encounter Results * OUTSIDE LAB RESULTS (11/20/2023) 11/20/2023 No Physician Data Unknown LABORATORY documented in this encounter Advance Directives * [...] Directives occurred with: Not Discussed Care Teams Machine Silk Screen Printer Relationship Specialty Start Date End Date Brigitte Byrd MD [address] [place] [address] [place] [address] PCP - General Family Medicine 11/23/18 documented as of this encounter
--- OUTSIDE RECORDS SUMMARY | 2024-01-09 00:08 | External Medical Summary | Summary of Care ---
Author Name Unknown Organization [facility] Address [address] [facility] [address] Phone [phone] Care Team Providers Care Liquefaction And Regasification Helper Name Role Phone Brigitte Byrd MD Primary Care Prov ider Reason for Visit * Reason Onset Date Comments Medication Refill 11/03/2023 Encounter Details Date Type Department Care Team (Late st Contact Info) Description 11/03/2023 Refill Family Medicine [address] [phone] Brigitte Byrd MD [address] [place], [place] [address] [phone] PTSD (post-traumatic stress disorder) Allergies Active Allergy Reactions Criticality Noted Date Comments Diclofenac Resin Rash Low 11/15/1999 Voltaren Atorvastatin Calcium Muscle pain 11/23/2018 Rosuvastatin Muscle pain 11/23/2018 documented as of this encounter (statuses as of 11/06/2023) Medications Medication Sig Dispensed Refills Start Date [...] A1c goal of less than 8.0% ([facility]) Use as directed . Test 3 times daily. Pt is on insulin Dx E11.9 1 Kit 2 Active Pylera 140-125-125 MG Oral Capsule (Bis Acngrf-Ecoxfczg-Fll racyc) 3 capsules 4 times/day x 10 days 120 Capsule 2 Active Additional Information Patient not taking.Reported on 10/16/2023 NovoLOG FlexPen 100 UNIT/ML Subcutaneous Solution Pen-injector (insulin aspart)Indications: Type 2 diabetes mellitus with hemoglobin A1c goal of less than 8.0% ([facility]) inject 20 units WITH BREAKFAST, 10 UNITS WITH MIDDAY SNACK, 10 UNITS WITH SUPPER (CF:1:40 OVER 160) 45 mL 3 3 Active Atenolol 25 MG Oral Tablet (Tenormin)Indicatio ns:Atherosclerosis of [place] coronary artery of [place] heart without angina pectoris take 1/2 tablet [...] Nasal Suspension (Flonase)Indication s:Allergic rhinitis Administer 1 [place] into nostril in the morning. 48 mL 1 3 Active BD Pen Needle Short U/F 31G X 8 MM (Insulin Pen Needle)Indications: Type 2 diabetes mellitus with hemoglobin A1c goal of less than 8.0% ([facility]) USE 5 TIMES DAILY WITH INSULIN DX [...] A1c goal of less than 8.0% ([facility]),Diabetes mellitus, type II, insulin dependent ([facility]) USE TEST STRIPS TO TEST BLOOD SUGARS [...] A1c goal of less than 8.0% ([facility]) Use to test 3 times a day. [...] Oral Tablet (Coumadin)Indicatio ns:Chronic atrial fibrillation ([facility]) Take 1-2 Tablets by mouth every evening. Or take as instructed by the [facility]. Due for INR. 180 Tablet 4 Active Insulin Glargine Solostar 100 UNIT/ML Subcutaneous Solution Pen-injector (Basaglar Harish)Indications :Type 2 diabetes mellitus with hemoglobin A1c goal of less than 8.0% ([facility]),Diabetes mellitus, type II, insulin dependent ([facility]) inject 20 units subcutaneously every morning and inject 10 units every NIGHT 30 mL 4 Active Trelegy Ellipta 100-62.5-25 MCG/ACT Aerosol Powder Breath Activated (Fluticasone-Umecli dinium-Vilanterol) inhale 1 puff by mouth and INTO THE LUNGS every morning 60 Blister Dosing Unit 5 4 Active predniSONE 5 MG Oral Tablet (Deltasone)Indicati ons:assisted current use of systemic steroids Take 1 Tablet by mouth in the morning. 30 Tablet 1 4 Active Albuterol Sulfate HFA 108 (90 Base) MCG/ACT Inhalation Aerosol SolutionIndications :Mild persistent asthma with acute exacerbation,COPD, group B, by GOLD 2017 classification ([facility]) inhale 1 TO 2 puffs by mouth and INTO THE LUNGS every 2 hours if needed 8.5 g 5 4 Active HYDROcodone-Acetami nophen 10-325 MG Oral [...] day if needed for anxiety 60 Tablet 2 4 11/03/19 24 Discontinu ed(Refill) Hospital, Clinic, or Other Facility Administered Medication Ordered Dose Route Frequency Start Date End Date Status Albuterol Sulfate (Proventil) (2.5 MG/3ML) 0.083% inhalation solution 2.5 mgIndications:COPD exacerbation (HCC) 2.5 mg NEBULIZER ONCE PRN 10/16/2023 10/15/2024 Active documented as of this encounter (statuses as of 11/06/2023) Active Problems Problem Noted Date Diagnosed Date Moderate episode of recurrent major depressive d isorder 10/16/2023 Reactive arthritis of multiple sites 07/05/2023 Food insecurity 07/03/2023 Overview: Per [facility] Protocol Diabetic peripheral neuropathy 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 06/20 History [...] situ 11/23/2018 Chronic atrial fibrillation 08/24/2018 Overview: [facility] Dr Armenta Diabetes mellitus, type [...] CORONARY ATHEROSCLEROSIS OF UNSPECIFIED TYPE OF VESSEL, MECHOOPDA OR GRAFT Peptic ulcer Asthma, mild persistent HLA B27 (HLA B27 positive) documented as of this encounter (statuses as of 11/06/2023) Resolved Problems Problem Noted Date Diagnosed Date [...] as of this encounter (statuses as of 11/06/2023) Immunizations Name Administration Dates Next Due COVID-19 mRNA, LNP-s, No Pre serve, 2-Dose Series (Moderna) 10/23/2020,06/23/2020 H1N1 2009 Influenza, IM 04/06/2009 Pneumococcal Conjugate Vacci ne, 20-valent ([id number]) 11/19/2021 Pneumococcal Polysaccharide PPV23 (Pneumovax) 02/09/2007 Seasonal [...] encounter Miscellaneous Notes * Telephone Encounter - Marcie Borja MD - 11/06/2023 3:30 PM EDT Signed Prescriptions: Disp Refills LORazepam 0.5 MG Oral Tablet (Ativan) 60 Tab*0 Sig: Take 1 Tablet by mouth 2 times a day as needed for Anxiety. Authorizing Provider: MARCIE BROJA * Telephone Encounter - Tamiko Andrade [facility] - 11/05/2023 1:37 PM EDT Pending Prescriptions: Disp Refills LORazepam 0.5 MG Oral Tablet (Ativan) 60 Tab*2 Sig: Take 1 Tablet by mouth 2 times a day as needed for Anxiety. * Telephone Encounter - Tamiko Andrade [facility] - 11/05/2023 1:35 PM EDT I have reviewed the patients controlled substance dispensing history in the Prescription Drug Monitoring Program in compliance with the [facility] regulations before prescribing a controlled substance. PDMP checked on 11/05/2023. Pending Prescriptions: Disp Refills LORazepam 0.5 MG Oral Tablet (Ativan) 60 Tab*2 Sig: Take 1 Tablet by mouth 2 times a day as needed for Anxiety. Last Visit: 10/16/2023 (in office), 08/29/2023 (telemedicine) Next Visit: 01/22/2024 Date medication was last filled: 10/04/23 Date medication is due for refill: 11/02/23 Pharmacy: [id number] [facility] Is this request for a controlled substance? Yes and Urine Drug Screen was completed Toxicology results: Results for orders placed [...] Review. Please approve if appropriate. Thank you, Tamiko Andrade PharmD Clinical Pharmacist [facility]ized [facility]acy Services ([facility]) 11/05/23 1:36 PM [phone] documented in this encounter Plan of Treatment Upcoming Encounters Date Type Department Care Team (Late st Contact Info) Description 11/15/2023 6:30 AM EDT Anticoagulation Centralized Clinical Pharmacy Services, [facility] [address] [place] [address] [place] [address] [place] [address] 11/20/2023 6:10 PM EDT Pharmacy Pharmacy, [address] [place] [address] [facility] [address] [facility] [place] [address] 11/22/2023 2:30 PM EDT PulmDiagnostic Pulmonary Function Lab, [facility] [address] [facility] [place] [address] [place], [address] [facility] [place] [address] 11/28/2023 1:00 PM EDT Office Visit Pulmonary Medicine, [address] [place] [address] Miguel Mun[facility] [address] 12/22/2023 3:20 PM EDT Office Visit Rheumatology [address] [place] [phone] Demetrius Aj MD [facility] [address] 01/22/2024 2:00 PM EDT Office Visit Family Medicine [address] [place] [phone] Brigitte Byrd MD [address] [place] [address] [place] [address] Scheduled Procedures Name Priority Associated Diagnoses Date/Ti me COLONOSCOPY FLEXIBLE PROXIMAL DIAGNOSTIC Recall History of colon polyps Health Maintenance Due Date Last Done Comments DISCUSS TOBACCO CESSATION (REFER TO SMARTSET #5539) 1955 Zoster Vaccines (1 of 2) 02/22/1975 [...] 08/12/2021, 09/24, 08/04/2009 Colorectal Cancer Screening 08/12/2026 DTaP,Tdap,and Td Vaccines (3 - Td or Tdap) 02/17/2028 [...] Directives occurred with: Not Discussed Care Teams Liquefaction And Regasification Helper Relationship Specialty Start Date End Date Brigitte Byrd MD [address] [place] [address] [place] [address] PCP - General Family Medicine 11/23/18 documented as of this encounter
--- OUTSIDE RECORDS SUMMARY | 2024-01-09 00:08 | External Medical Summary | Summary of Care ---
Author Name Unknown Organization [facility] Address [address] [facility] [place] [address] Phone [phone] Care Team Providers Care Surgeon Partner Name Role Phone Brigitte Byrd MD Primary Care Prov ider Reason for Visit * Reason Comments eRx-Medication Refill Encounter Details Date Type Department Care Team (Late st Contact Info) Description 11/09/2023 Refill General Internal Medicine [address] [place] [address] Brigitte Byrd MD [address] [place] [address] [place] [phone] Type 2 diabetes mellitus with hemoglobin A1c goal of less than 8.0% ([facility]) Allergies Active Allergy Reactions Criticality Noted Date Comments Diclofenac Resin Rash Low 11/15/1999 Voltaren Atorvastatin Calcium Muscle pain 11/23/2018 Rosuvastatin Muscle pain 11/23/2018 documented as of this encounter (statuses as of 11/10/2023) Medications Medication Sig Dispensed Refills Start Date End Date Status MULTIVITAMINS PO TABS one tab daily Active Insulin Syringe-Needle U-100 30G X 1/2" 0.3 ML MISCIndications:DM type 2 nursing care encounter ([facility]) Use as directed. 1 Box 11 01/06/20 15 Active isosorbide dinitrate (ISORDIL) 10 MG Tablet Take 1 Tablet by mouth in the morning. 08/25/19 Active furosemide (LASIX) 20 MG Tablet Take 1 Tablet by mouth in the morning. Active magnesium citrate solutionIndications :Drug-induced constipation Take 120 mL by mouth daily as needed for Constipation. for severe constipation. 240 mL 1 12/27/19 Active polyethylene glycol 3350 (MIRALAX) 255 gram [...] goal of less than 8.0% ([facility]) Use as directed . Test 3 times daily. Pt is on insulin Dx E11.9 1 Kit 04/30/19 Active Pylera 140-125-125 MG Oral Capsule (Bis Betfrr-Itumrufq-Dvk racyc) 3 capsules 4 times/day x 10 days 120 Capsule 05/05/19 22 Active Additional Information Patient not taking.Reported on 10/16/2023 Atenolol 25 MG Oral Tablet (Tenormin)Indicatio ns:Atherosclerosis of [place] coronary artery of [place] heart without angina pectoris take 1/2 tablet [...] Nasal Suspension (Flonase)Indication s:Allergic rhinitis Administer 1 [place] into nostril in the morning. 48 mL 1 12/04/19 23 Active BD Pen Needle Short U/F 31G X 8 MM (Insulin Pen Needle)Indications: Type 2 diabetes mellitus with hemoglobin A1c goal of less than 8.0% ([facility]) USE 5 TIMES DAILY WITH INSULIN [...] morning 90 Tablet 1 08/29/19 24 Active Hydroxychloroquine Sulfate 200 MG Oral Tablet (Plaquenil)Indicati ons:HLA B27 (HLA B27 positive) Take 2 Tablets by mouth at bedtime. 180 Tablet 08/30/19 24 Active Warfarin Sodium 5 MG Oral Tablet (Coumadin)Indicatio ns:Chronic atrial fibrillation (HCC) Take 1-2 Tablets by mouth every evening. Or take as instructed by the [facility]. Due for INR. 180 Tablet 09/21/19 24 Active Insulin Glargine Solostar 100 UNIT/ML Subcutaneous Solution Pen-injector (Basaglar Harish)Indications :Type 2 diabetes mellitus with hemoglobin A1c goal of less than 8.0% ([facility]),Diabetes mellitus, type II, insulin dependent ([facility]) inject 20 units subcutaneously every morning and inject 10 units every NIGHT 30 mL 09/29/19 24 Active Trelegy Ellipta 100-62.5-25 MCG/ACT Aerosol Powder Breath Activated (Fluticasone-Umecli dinium-Vilanterol) inhale 1 puff by mouth and INTO THE LUNGS every morning 60 Blister Dosing Unit 5 10/11/19 24 Active predniSONE 5 MG Oral Tablet (Deltasone)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 30 Tablet 1 10/16/19 24 Active Albuterol Sulfate HFA 108 (90 Base) MCG/ACT Inhalation Aerosol SolutionIndications :Mild persistent asthma with acute exacerbation,COPD, group B, by GOLD 2017 classification ([facility]) inhale 1 TO 2 puffs by [...] 160) 45 mL 3 11/10/19 24 Active NovoLOG FlexPen 100 UNIT/ML Subcutaneous Solution Pen-injector (insulin aspart)Indications: Type 2 diabetes mellitus with hemoglobin A1c goal of less than 8.0% (HCC) inject 20 units WITH BREAKFAST, 10 UNITS WITH MIDDAY SNACK, 10 UNITS WITH SUPPER (CF:1:40 OVER 160) 45 mL 3 05/24/19 23 024 Discontinued Hospital, Clinic, or Other Facility Administered Medication Ordered Dose Route Frequency Start Date End Date Status Albuterol Sulfate (Proventil) (2.5 MG/3ML) 0.083% inhalation solution 2.5 mgIndications:COPD exacerbation (HCC) 2.5 mg NEBULIZER ONCE PRN 10/16/2023 10/15/2024 Active documented as of this encounter (statuses as of 11/10/2023) Active Problems Problem Noted Date Diagnosed Date Moderate episode of recurrent major depressive d isorder 10/16/2023 Reactive arthritis of multiple sites 07/05/2023 Food insecurity 07/03/2023 Overview: Per [facility] Protocol 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 peripheral 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 06/20 History [...] situ 11/23/2018 Chronic atrial fibrillation 08/24/2018 Overview: [facility] Dr Armenta Diabetes mellitus, type [...] CORONARY ATHEROSCLEROSIS OF UNSPECIFIED TYPE OF VESSEL, [place] OR GRAFT Peptic ulcer Asthma, mild persistent HLA B27 (HLA B27 positive) documented as of this encounter (statuses as of 11/10/2023) Resolved Problems Problem Noted Date Diagnosed Date [...] as of this encounter (statuses as of 11/10/2023) Immunizations Name Administration Dates Next Due COVID-19 mRNA, LNP-s, No Pre serve, 2-Dose Series (Moderna) 10/23/2020,06/23/2020 H1N1 2009 Influenza, IM 04/06/2009 Pneumococcal Conjugate Vacci ne, 20-valent ([id number]) 11/19/2021 Pneumococcal Polysaccharide PPV23 (Pneumovax) 02/09/2007 Seasonal [...] encounter Miscellaneous Notes * Telephone Encounter - Matt Morrison RPh - 11/10/2023 4:05 PM EDT Signed Prescriptions: Disp Refills NovoLOG FlexPen 100 UNIT/ML Subcutaneous S*45 mL 3 Sig: inject 20 units with breakfast 10 units with SNACK and 10 units with dinner (CF:1:40 OVER 160)Authorizing Provider: BRIGITTE BYRD User: MATT MORRISON documented in this encounter Plan of Treatment Upcoming Encounters Date Type Department Care Team (Late st Contact Info) Description 11/15/2023 6:30 AM EDT Anticoagulation Centralized Clinical Pharmacy Services, [facility] [address] [place] [address] [place] [address] [facility], [address] [place] [address] 11/20/2023 6:10 PM EDT Pharmacy Pharmacy, [facility] [address] [facility] [place] [address] [facility] [address] [facility] [place] [address] 11/22/2023 2:30 PM EDT PulmDiagnostic Pulmonary Function Lab, [facility] [address] [facility] [place] [address] [place], [address] [facility] [place] [address] 11/28/2023 1:00 PM EDT Office Visit Pulmonary Medicine, [facility] [address] [facility] [place] [address] Miguel Munoz MD [address] [facility] [place] [address] 12/22/2023 3:20 PM EDT Office Visit Rheumatology [address] [place] [phone] Demetrius Aj MD [address] [place] [address] [place] [address] 01/22/2024 2:00 PM EDT Office Visit Family Medicine [address] [place] [phone] Brigitte Byrd MD [address] [place] [address] [place] [address] Scheduled Procedures Name Priority Associated Diagnoses Date/Ti [...] A1c goal of less than 8.0% (HCC) documented in this encounter Advance Directives [...] Directives occurred with: Not Discussed Care Teams Surgeon Partner Relationship Specialty Start Date End Date Brigitte Byrd MD [address] [place] [address] [place] [address] PCP - General Family Medicine 11/23/18 documented as of this encounter
--- OUTSIDE RECORDS SUMMARY | 2024-01-09 00:08 | External Medical Summary | Summary of Care ---
Author Name Unknown Organization [facility] Address [address] [facility] [place] [address] Phone [phone] Care Team Providers Care Assistant Speech Language Pathologist Name Role Phone Brigitte Byrd MD Primary Care Prov ider Reason for Visit * Reason Comments Appointment Encounter Details Date Type Department Care Team (Late st Contact Info) Description 11/20/2023 6:10 PM EDT Pharmacy Pharmacy, [facility] [address] [facility] 132 [facility] [place] [address] Chronic pain syndrome* Allergies Active Allergy Reactions Criticality Noted Date Comments Diclofenac Resin Rash Low 11/15/1999 Voltaren Atorvastatin Calcium Muscle pain 11/23/2018 Rosuvastatin Muscle pain 11/23/2018 documented as of this encounter (statuses as of 11/20/2023) Medications Medication Sig Dispensed Refills Start Date [...] hemoglobin A1c goal of less than 8.0% ([facility]) Use as directed . Test 3 times daily. Pt is on insulin Dx E11.9 1 Kit 2 Active Pylera 140-125-125 MG Oral Capsule (Bis Wpzvrp-Orulcemm-Lvql acyc) 3 capsules 4 times/day x 10 days 120 Capsule 2 Active Additional Information Patient not taking.Reported on 10/16/2023 Atenolol 25 MG Oral Tablet (Tenormin)Indication s:Atherosclerosis of [place] coronary artery of [place] heart without angina pectoris take 1/2 tablet [...] Nasal Suspension (Flonase)Indications :Allergic rhinitis Administer 1 [place] into nostril in the morning. 48 mL [...] evening. Or take as instructed by the [facility]. Due for INR. 180 Tablet 4 Active Insulin Glargine Solostar 100 UNIT/ML Subcutaneous Solution Pen-injector (Basaglar KwikPen)Indications: Type 2 diabetes mellitus with hemoglobin A1c goal of less than 8.0% ([facility]),Diabetes mellitus, type II, insulin dependent ([facility]) inject 20 units subcutaneously every morning and inject 10 units every NIGHT 30 mL 4 Active Trelegy Ellipta 100-62.5-25 MCG/ACT Aerosol Powder Breath Activated (Fluticasone-Umeclid inium-Vilanterol) inhale 1 puff by mouth and INTO THE LUNGS every morning 60 Blister Dosing Unit 5 4 Active predniSONE 5 MG Oral Tablet (Deltasone)Indicatio ns: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 06/20 [...] situ 11/23/2018 Chronic atrial fibrillation 08/24/2018 Overview: [facility] Dr Armenta Diabetes mellitus, type [...] CORONARY ATHEROSCLEROSIS OF UNSPECIFIED TYPE OF VESSEL, [place] OR GRAFT Peptic ulcer Asthma, mild persistent HLA B27 (HLA B27 positive) documented as of this encounter (statuses as of 11/20/2023) Resolved Problems Problem Noted Date Diagnosed Date [...] as of this encounter (statuses as of 11/20/2023) Immunizations Name Administration Dates Next Due COVID-19 mRNA, LNP-s, No Pre serve, 2-Dose Series (Moderna) 10/23/2020,06/23/2020 H1N1 2009 Influenza, IM 04/06/2009 Pneumococcal Conjugate Vacci ne, 20-valent ([id number]) 11/19/2021 Pneumococcal Polysaccharide PPV23 (Pneumovax) 02/09/2007 Seasonal [...] as of this encounter Progress Notes * Kayy Elliott lacquerer - 11/20/2023 9:31 AM EDT Patient Phone Numbers Left message on patients answering machine to schedule [facility] appointment for pain management. [facility] message sent --no Clinic will follow up again in 4 week(s). [Attempt # 2] Thank you, Kayy Elliott [facility] Radiation Therapist II [facility] ([facility]) 11/20/2023,9:31 AM documented in this encounter Plan of Treatment Upcoming Encounters Date Type Department Care Team (Late st Contact Info) Description 11/22/2023 2:30 PM EDT PulmDiagnostic Pulmonary Function Lab, [facility] 132 [place] [address] [address], [address] [place] [address] 11/28/2023 1:00 PM EDT Office Visit Pulmonary Medicine, [facility] 132 [place] [address] Miguel Munoz MD [address] [facility] [place] Johnson [address] 12/18/2023 6:10 PM EDT Pharmacy Pharmacy, [facility] 132 [place] [address] [facility] 132 [place] [address] 12/22/2023 3:20 PM EDT Office Visit Rheumatology [address] [place] [phone] Demetrius Aj MD [address] [place], [place] [address] 01/22/2024 2:00 PM EDT Office Visit Family Medicine [address] [place] [phone] Brigitte Byrd MD [address] [place] [address] [place] [address] Scheduled Procedures Name Priority Associated Diagnoses Date/Ti me COLONOSCOPY FLEXIBLE PROXIMAL DIAGNOSTIC Recall History of colon polyps Health Maintenance Due Date Last Done Comments DISCUSS TOBACCO CESSATION (REFER TO SMARTSET #9936) 1956 Zoster Vaccines (1 of 2) 02/22/1975 [...] Directives occurred with: Not Discussed Care Teams Assistant Speech Language Pathologist Relationship Specialty Start Date End Date Brigitte Byrd MD [address] [place] [address] [place]elo [phone] PCP - General Family Medicine 11/23/18 documented as of this encounter
--- OUTSIDE RECORDS SUMMARY | 2024-01-09 00:08 | External Medical Summary | Summary of Care ---
Author Name Unknown Organization [facility] Address [address] [facility] [place] [address] Phone [phone] Care Team Providers Care Barrel Coater Name Role Phone Brigitte Byrd MD Primary Care Prov ider Reason for Visit * Reason Onset Date Comments Appointment 11/08/2023 Encounter Details Date Type Department Care Team (Late st Contact Info) Description 11/08/2023 Telephone Rheumatology [facility] [address] [employer] [place] [address] Demetrius Aj MD [address] [place], [place] [address] [address] Appointment Allergies Active Allergy Reactions Criticality Noted Date Comments Diclofenac Resin Rash Low 11/15/1999 Voltaren Atorvastatin Calcium Muscle pain 11/23/2018 Rosuvastatin Muscle pain 11/23/2018 documented as of this encounter (statuses as of 11/08/2023) Medications Medication Sig Dispensed Refills Start Date [...] goal of less than 8.0% ([facility]) Use as directed . Test 3 times daily. Pt is on insulin Dx E11.9 1 Kit 2 Active Pylera 140-125-125 MG Oral Capsule (Bis Topbpd-Vpusiqbv-Binh acyc) 3 capsules 4 times/day x 10 days 120 Capsule 2 Active Additional Information Patient not taking.Reported on 10/16/2023 NovoLOG FlexPen 100 UNIT/ML Subcutaneous Solution Pen-injector (insulin aspart)Indications:T ype 2 diabetes mellitus with hemoglobin A1c goal of less than 8.0% ([facility]) inject 20 units WITH BREAKFAST, 10 UNITS WITH MIDDAY SNACK, 10 UNITS WITH SUPPER (CF:1:40 OVER 160) 45 mL 3 3 Active Atenolol 25 MG Oral Tablet (Tenormin)Indication s:Atherosclerosis of [place] coronary artery of [place] heart without angina pectoris take 1/2 tablet [...] Nasal Suspension (Flonase)Indications :Allergic rhinitis Administer 1 [place] into nostril in the morning. 48 mL [...] MG Oral Tablet (Coumadin)Indication s:Chronic atrial fibrillation ([facility]) Take 1-2 Tablets by mouth every evening. Or take as instructed by the [facility]. Due for INR. 180 Tablet 4 Active Insulin Glargine Solostar 100 UNIT/ML Subcutaneous Solution Pen-injector (Basaglar KwikPen)Indications: Type 2 diabetes mellitus with hemoglobin A1c goal of less than 8.0% ([facility]),Diabetes mellitus, type II, insulin dependent ([facility]) inject 20 units subcutaneously every morning and inject 10 units every NIGHT 30 mL 4 Active Trelegy Ellipta 100-62.5-25 MCG/ACT Aerosol Powder Breath Activated (Fluticasone-Umeclid inium-Vilanterol) inhale 1 puff by mouth and INTO THE LUNGS every morning 60 Blister Dosing Unit 5 4 Active predniSONE 5 MG Oral Tablet (Deltasone)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 06/20 History [...] situ 11/23/2018 Chronic atrial fibrillation 08/24/2018 Overview: [facility] Dr Armenta Diabetes mellitus, type [...] CORONARY ATHEROSCLEROSIS OF UNSPECIFIED TYPE OF VESSEL, [place] OR GRAFT Peptic ulcer Asthma, mild persistent HLA B27 (HLA B27 positive) documented as of this encounter (statuses as of 11/08/2023) Resolved Problems Problem Noted Date Diagnosed Date [...] as of this encounter (statuses as of 11/08/2023) Immunizations Name Administration Dates Next Due COVID-19 mRNA, LNP-s, No Pre serve, 2-Dose Series (Moderna) 10/23/2020,06/23/2020 H1N1 2009 Influenza, IM 04/06/2009 Pneumococcal Conjugate Vacci ne, 20-valent ([id number]) 11/19/2021 Pneumococcal Polysaccharide PPV23 (Pneumovax) 02/09/2007 Seasonal [...] encounter Miscellaneous Notes * Telephone Encounter - Ann Williamson CPhT - 11/08/2023 1:11 PM EDT Patient transferred to [facility] scheduling per request Thank You, Ann Williamson CPhT Recycling Or Rubbish Collector III [facility] ([facility]) documented in this encounter Plan of Treatment Upcoming Encounters Date Type Department Care Team (Late st Contact Info) Description 11/15/2023 6:30 AM EDT Anticoagulation [facility] Services, [place] [address] [place] [address] [place]armolejo [address] [facility], [address] [place] [address] 11/20/2023 6:10 PM EDT Pharmacy Pharmacy, [facility] [address] [place] [address] [facility] [address] [place] [address] 11/22/2023 2:30 PM EDT PulmDiagnostic Pulmonary Function Lab, [facility] [place] [address] [place], [address] 132 [facility] [place] [address] 11/28/2023 1:00 PM EDT Office Visit Pulmonary Medicine, [facility] 132 [facility] [place] [address] Miguel Munoz MD [address] [facility] [address] 12/22/2023 3:20 PM EDT Office Visit Rheumatology [address] [place] [phone] Demetrius Aj MD [address] [facility] [place] [address] 01/22/2024 2:00 PM EDT Office Visit Family Medicine [address] [place] [phone] Brigitte Byrd MD [address] [place] [address] [place] [address] Scheduled Procedures Name Priority Associated Diagnoses Date/Ti me COLONOSCOPY FLEXIBLE PROXIMAL DIAGNOSTIC Recall History of colon polyps Health Maintenance Due Date Last Done Comments DISCUSS TOBACCO CESSATION (REFER TO SMARTSET #7251) 1955 Zoster Vaccines (1 of 2) 02/22/1975 [...] Directives occurred with: Not Discussed Care Teams Barrel Coater Relationship Specialty Start Date End Date Brigitte Byrd MD [address] [place] [address] [place] [address] PCP - General Family Medicine 11/23/18 documented as of this encounter
--- OUTSIDE RECORDS SUMMARY | 2024-01-09 00:08 | External Medical Summary | Summary of Care ---
Author Name Unknown Organization [facility] Address [address] [facility] [address] Phone [phone] Care Team Providers Care Laborer Airport Maintenance Name Role Phone Brigitte Byrd MD Primary Care Prov ider Reason for Visit * Reason Comments eRx-Medication Refill Encounter Details Date Type Department Care Team (Late st Contact Info) Description 11/03/2023 Refill Family Medicine [address] [phone] Brigitte Byrd MD [address] [place], [place] [address]T[place] [phone] PTSD (post-traumatic stress disorder) Allergies Active Allergy Reactions Criticality Noted Date Comments Diclofenac Resin Rash Low 11/15/1999 Voltaren Atorvastatin Calcium Muscle pain 11/23/2018 Rosuvastatin Muscle pain 11/23/2018 documented as of this encounter (statuses as of 11/05/2023) Medications Medication Sig Dispensed Refills Start Date End Date Status MULTIVITAMINS PO TABS one tab daily Active Insulin Syringe-Needle U-100 30G X 1/2" 0.3 ML MISCIndications:DM type 2 nursing care encounter (HCC) Use as directed. 1 [address] 11 5 Active isosorbide dinitrate (ISORDIL) 10 MG Tablet Take 1 Tablet by mouth in the morning. 05/31/201 9 Active furosemide (LASIX) 20 MG Tablet [...] hemoglobin A1c goal of less than 8.0% ([facility]) Use as directed . Test 3 times daily. Pt is on insulin Dx E11.9 1 Kit 2 Active Pylera 140-125-125 MG Oral Capsule (Bis Dlhspj-Iduyjqou-Hftd acyc) 3 capsules 4 times/day x 10 days 120 Capsule 2 Active Additional Information Patient not taking.Reported on 10/16/2023 NovoLOG FlexPen 100 UNIT/ML Subcutaneous Solution Pen-injector (insulin aspart)Indications:T ype 2 diabetes mellitus with hemoglobin A1c goal of less than 8.0% ([facility]) inject 20 units WITH BREAKFAST, 10 UNITS WITH MIDDAY SNACK, 10 UNITS WITH SUPPER (CF:1:40 OVER 160) 45 mL 3 3 Active Atenolol 25 MG Oral Tablet (Tenormin)Indication s:Atherosclerosis of [place] coronary artery of [place] heart without angina pectoris take 1/2 tablet [...] Nasal Suspension (Flonase)Indications :Allergic rhinitis Administer 1 [place] into nostril in the morning. 48 mL 1 3 Active BD Pen Needle Short U/F 31G X 8 MM (Insulin Pen Needle)Indications:T ype 2 diabetes mellitus with hemoglobin A1c goal of less than 8.0% ([facility]) USE 5 TIMES DAILY WITH INSULIN [...] hemoglobin A1c goal of less than 8.0% ([facility]),Diabetes mellitus, type II, insulin dependent ([facility]) USE TEST STRIPS TO TEST BLOOD SUGARS THREE TIMES DAILY 300 Strip 2 4 Active DULoxetine HCl 30 MG Oral Capsule Delayed Release Particles (Cymbalta)Indication s:Moderate episode of recurrent major depressive disorder ([facility]) take 1 capsule by mouth every morning 90 Capsule 1 4 Active FreeStyle Test In Vitro Strip (Glucose Blood)Indications:Ty pe 2 diabetes mellitus with hemoglobin A1c goal of less than 8.0% ([facility]) Use to test 3 times a day. E11.9 300 Strip 2 4 Active LORazepam 0.5 MG Oral Tablet (Ativan)Indications: PTSD (post-traumatic stress disorder) take 1 tablet by mouth twice a day if needed for anxiety 60 Tablet 2 4 Active traZODone HCl 50 MG [...] evening. Or take as instructed by the [facility]. Due for INR. 180 Tablet 4 Active Insulin Glargine Solostar 100 UNIT/ML Subcutaneous Solution Pen-injector (Basaglar KwikPen)Indications: Type 2 diabetes mellitus with hemoglobin A1c goal of less than 8.0% ([facility]),Diabetes mellitus, type II, insulin dependent ([facility]) inject 20 units subcutaneously every [...] exacerbation,COPD, group B, by GOLD 2017 classification ([facility]) inhale 1 TO 2 puffs [...] tablets per day. 75 Tablet 4 Active Hospital, Clinic, or Other Facility Administered Medication Ordered Dose Route Frequency Start Date End Date Status Albuterol Sulfate (Proventil) (2.5 MG/3ML) 0.083% inhalation solution 2.5 mgIndications:COPD exacerbation ([facility]) 2.5 mg NEBULIZER ONCE PRN 10/16/2023 10/15/2024 Active documented as of this encounter (statuses as of 11/05/2023) Active Problems Problem Noted Date Diagnosed Date Moderate episode of recurrent major depressive d isorder 10/16/2023 Reactive arthritis of multiple sites 07/05/2023 Food insecurity 07/03/2023 Overview: Per [facility] Protocol Diabetic peripheral neuropathy 09/13/2022 nursing home current use of systemic steroids 06/20 History [...] situ 11/23/2018 Chronic atrial fibrillation 08/24/2018 Overview: [facility] Dr Armenta Diabetes mellitus, type [...] CORONARY ATHEROSCLEROSIS OF UNSPECIFIED TYPE OF VESSEL, [place] OR GRAFT Peptic ulcer Asthma, mild persistent HLA B27 (HLA B27 positive) documented as of this encounter (statuses as of 11/05/2023) Resolved Problems Problem Noted Date Diagnosed Date [...] as of this encounter (statuses as of 11/05/2023) Immunizations Name Administration Dates Next Due COVID-19 mRNA, LNP-s, No Pre serve, 2-Dose Series (Moderna) 10/23/2020,06/23/2020 H1N1 2009 Influenza, IM 04/06/2009 Pneumococcal Conjugate Vacci ne, 20-valent ([id number]) 11/19/2021 Pneumococcal Polysaccharide PPV23 (Pneumovax) 02/09/2007 Seasonal [...] encounter Miscellaneous Notes * Telephone Encounter - Tamiko Machado [facility] - 11/05/2023 1:35 PM EDT Refused Prescriptions: Disp Refills LORazepam 0.5 MG Oral Tablet (Ativan) 60 Tab* Sig: take 1 tablet by mouth twice a day if needed for anxietyRefused By: TAMIKO MACHADOReason for Refusal: Duplicate Request documented in this encounter Plan of Treatment Upcoming Encounters Date Type Department Care Team (Late st Contact Info) Description 11/15/2023 6:30 AM EDT Anticoagulation [facility], [place] [address] [place] [address] [place] [address] [place] [address] 11/20/2023 6:10 PM EDT Pharmacy Pharmacy, [facility] 132 [facility] [place] [address] [facility] 132 [place] [address] 11/22/2023 2:30 PM EDT PulmDiagnostic Pulmonary Function Lab, [facility] [address] [place] [address] [place], [address] [place] [address] 11/28/2023 1:00 PM EDT Office Visit Pulmonary Medicine, [facility] [address] [place] [address] Miguel Munoz MD [address] [place] [address] 12/22/2023 3:20 PM EDT Office Visit Rheumatology [address] [place] [phone] Demetrius Aj MD [address] [facility] [address] 01/22/2024 2:00 PM EDT Office Visit Family Medicine [address] [place] [phone] Brigitte Byrd MD [address] [place] [address] [place] [address] Scheduled Procedures Name Priority Associated Diagnoses Date/Ti me COLONOSCOPY FLEXIBLE PROXIMAL DIAGNOSTIC Recall History of colon polyps Health Maintenance Due Date Last Done Comments DISCUSS TOBACCO CESSATION (REFER TO SMARTSET #3064) 1955 Zoster Vaccines (1 of 2) 02/22/1975 [...] occurred with: Not Discussed Care Teams Laborer Airport Maintenance Relationship Specialty Start Date End Date Brigitte Byrd MD [address] [place] [address] [place]elo [phone] PCP - General Family Medicine 11/23/18 documented as of this encounter
--- OUTSIDE RECORDS SUMMARY | 2024-01-09 00:09 | External Medical Summary | Summary of Care ---
Author Name Unknown Organization [facility] Address [address] [facility] [address] Phone [phone] Care Team Providers Care Wind Turbine Machinist Name Role Phone Brigitte Byrd MD Primary Care Prov ider Reason for Visit * Reason Onset Date Comments Test Results 10/18/2023 Encounter Details Date Type Department Care Team (Late st Contact Info) Description 10/18/[address] [phone] Brigitte Byrd MD [address] [place], [place] [address] [phone] Test Results Allergies Active Allergy Reactions Criticality Noted Date Comments Diclofenac Resin Rash Low 11/15/1999 Voltaren Atorvastatin Calcium Muscle pain 11/23/2018 Rosuvastatin Muscle pain 11/23/2018 documented as of this encounter (statuses as of 10/19/2023) Medications Medication Sig Dispensed Refills Start Date [...] goal of less than 8.0% ([facility]) Use as directed . Test 3 times daily. Pt is on insulin Dx E11.9 1 Kit 2 Active Pylera 140-125-125 MG Oral Capsule (Bis Gccxto-Obfzuyny-Xvri acyc) 3 capsules 4 times/day x 10 days 120 Capsule 2 Active Additional Information Patient not taking.Reported on 10/16/2023 NovoLOG FlexPen 100 UNIT/ML Subcutaneous Solution Pen-injector (insulin aspart)Indications:T ype 2 diabetes mellitus with hemoglobin A1c goal of less than 8.0% ([facility]) inject 20 units WITH BREAKFAST, 10 UNITS WITH MIDDAY SNACK, 10 UNITS WITH SUPPER (CF:1:40 OVER 160) 45 mL 3 3 Active Atenolol 25 MG Oral Tablet (Tenormin)Indication s:Atherosclerosis of [place] coronary artery of [place] heart without angina pectoris take 1/2 tablet by mouth every evening if needed for PALPITATIONS 45 Tablet 3 3 Active Zoster Vac Recomb Adjuvanted 50 MCG/0.5ML Intramuscular Suspension Reconstituted (Shingrix) Inject 0.5 mL into a large muscle now and repeat dose in 60 to 180 days 1 Each 1 06/20/202 3 Active Additional Information Patient not taking.Reported on 10/16/2023 Fluticasone Propionate 50 MCG/ACT Nasal Suspension (Flonase)Indications :Allergic rhinitis Administer 1 Bimble into nostril in the morning. 48 mL 1 3 Active BD Pen Needle Short U/F 31G X 8 MM (Insulin Pen Needle)Indications:T ype 2 diabetes mellitus with hemoglobin A1c goal of less than 8.0% ([facility]) USE 5 TIMES DAILY WITH INSULIN DX [...] goal of less than 8.0% ([facility]),Diabetes mellitus, type II, insulin dependent ([facility]) USE TEST STRIPS TO TEST BLOOD SUGARS THREE TIMES DAILY 300 Strip 2 4 Active DULoxetine HCl 30 MG Oral Capsule Delayed Release Particles (Cymbalta)Indication s:Moderate episode of recurrent major depressive disorder ([facility]) take 1 capsule by mouth every morning 90 Capsule 1 4 Active FreeStyle Test In Vitro Strip (Glucose Blood)Indications:Ty pe 2 diabetes mellitus with hemoglobin A1c goal of less than 8.0% ([facility]) Use to test 3 times a day. E11.9 300 Strip 2 4 Active Albuterol Sulfate HFA 108 (90 Base) MCG/ACT Inhalation Aerosol SolutionIndications: Mild persistent asthma with acute exacerbation,COPD, group B, by GOLD 2017 classification ([facility]) inhale 1 TO 2 puffs by mouth and INTO THE LUNGS every 2 hours if needed 8.5 g 5 4 Active LORazepam 0.5 MG Oral Tablet (Ativan)Indications: PTSD (post-traumatic stress disorder) take 1 tablet by mouth twice a day if needed for anxiety 60 Tablet 2 4 Active traZODone HCl 50 MG Oral Tablet (Desyrel)Indications :Moderate episode of recurrent major depressive disorder ([facility]) take 1 tablet by mouth BEFORE BEDTIME [...] MG Oral Tablet (Coumadin)Indication s:Chronic atrial fibrillation ([facility]) Take 1-2 Tablets by mouth every evening. Or take as instructed by the [facility]. Due for INR. 180 Tablet 4 Active HYDROcodone-Acetamin ophen 10-325 MG Oral TabletIndications:Ce rvical stenosis of spinal canal,Lumbar degenerative disc disease Take 2.5 Tablets by mouth daily as needed for Pain, Severe. Take 0.5-1 tab every 8 hours as needed for severe pain. Max dose of 2.5 tablets per day. 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 30 Tablet 1 4 Active Doxycycline Hyclate 100 MG Oral CapsuleIndications:C ommunity acquired pneumonia of right middle lobe of lung Take 1 Capsule by mouth in the morning and 1 Capsule before bedtime. Do all this for 10 days. Until gone.. 20 Capsule 4 10/28/19 24 Active Hospital, Clinic, or Other Facility Administered Medication Ordered Dose Route Frequency Start Date End Date Status Albuterol Sulfate (Proventil) (2.5 MG/3ML) 0.083% inhalation solution 2.5 mgIndications:COPD exacerbation (HCC) 2.5 mg NEBULIZER ONCE PRN 10/16/2023 10/15/2024 Active documented as of this encounter (statuses as of 10/19/2023) Active Problems Problem Noted Date Diagnosed Date Moderate episode of recurrent major depressive d isorder 10/16/2023 Reactive arthritis of multiple sites 07/05/2023 Food insecurity 07/03/2023 Overview: Per [employer] [facility] Protocol Diabetic peripheral neuropathy 09/13/2022 [facility] current use of systemic steroids 06/20 History [...] situ 11/23/2018 Chronic atrial fibrillation 08/24/2018 Overview: [facility] Dr Armenta Diabetes mellitus, type [...] CORONARY ATHEROSCLEROSIS OF UNSPECIFIED TYPE OF VESSEL, THREE AFFILIATED OR GRAFT Peptic ulcer Asthma, mild persistent HLA B27 (HLA B27 positive) documented as of this encounter (statuses as of 10/19/2023) Resolved Problems Problem Noted Date Diagnosed Date [...] update of inactive term Mixed dyslipidemia 10/24/2008 Overview: Per Lipid Taxonomy. Type 2 diabetes mellitus wit h hemoglobin A1c goal of less than 7.0% 08/01/2007 01/22/2009 Overview: Per Diabetes Taxonomy. 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 11/03/2016 Asthma, allergic 04/05/2001 09/17/2009 Arthritis, rheumatoid 2005 MYOCARDIAL INFARCTION; OTHER 12/11/2014 documented as of this encounter (statuses as of 10/19/2023) Immunizations Name Administration Dates Next Due COVID-19 mRNA, LNP-s, No Pre serve, 2-Dose Series (Moderna) 10/23/2020,06/23/2020 H1N1 2009 Influenza, IM 04/06/2009 Pneumococcal Conjugate Vacci ne, 20-valent ([id number]) 11/19/2021 Pneumococcal Polysaccharide PPV23 (Pneumovax) 02/09/2007 Seasonal [...] encounter Miscellaneous Notes * Telephone Encounter - Travis Cisneros LPN - 10/19/2023 11:27 AM EDT Pt aware of note below * Telephone Encounter - Brigitte Byrd MD - 10/18/2023 4:14 PM EDT CXR shows RML pneumonia. Rx doxycycline sent in for him. Will need repeat CXR in 6 weeks to ensure resolution. Please let him know. documented in this encounter Plan of Treatment Upcoming Encounters Date Type Department Care Team (Late st Contact Info) Description 10/25/2023 3:00 PM EDT Office Visit Family [address] [phone] Brigitte Byrd MD [address] [place] [address] [place] [address] 11/01/2023 6:30 AM EDT Anticoagulation [facility], Corona Doss [address] [place] [address] [place]ole[place] [address] [facility], [address] [place] [address] 11/16/2023 1:00 PM EDT Telemedicine Pharmacy, [facility] [address] [facility] [place] [address] [facility] [address] [place] [address] 11/22/2023 2:30 PM EDT PulmDiagnostic Pulmonary Function Lab, [facility] [address] [facility] [place] [address] [place], Pft [address] [place] [address] [place] [address] 11/28/2023 1:00 PM EDT Office Visit Pulmonary Medicine, [facility] [address] [facility] [place] [address] Miguel Munoz MD [address] [facility] [address] 12/22/2023 3:20 PM EDT Office Visit Rheumatology [address] [place] [phone] Demetrius Aj MD [facility] [place] [address] 01/22/2024 2:00 PM EDT Office Visit Family Medicine [address] [place] [phone] Brigitte Byrd MD [address] [place] [address] [place] [address] Scheduled Orders Name Type Priority Associated Diagnoses Orde r Schedule XR CHEST 2 VIEWS Medical Imaging Routine Community acquired pneumonia of right middle lobe of lung Expected: 12/19/2023, Expires: 11/17/2024 Scheduled Procedures Name Priority Associated Diagnoses Date/Ti me COLONOSCOPY FLEXIBLE PROXIMAL DIAGNOSTIC Recall History of colon polyps Health Maintenance Due Date Last Done Comments DISCUSS TOBACCO CESSATION (REFER TO SMARTSET #7205) 1956 Zoster Vaccines (1 of 2) 02/22/1975 Cologuard 02/22/2001 Fecal Occult Blood Test 02/22/2001 Sigmoidoscopy 02/22/2001 Depression Monitoring 06/11/2020 06/12/2019 COVID-19 Vaccine (3 - Moderna risk series) 11/20/2020 10/23/2020, 06/23/2020 Diabetic Eye Exam 09/14/2023 09/13/2022, , 06/22/2017, Additional history exists Diabetic Foot Exam 09/14/2023 09/13/2022, 0 05/27/2021, 06/12/2019, Additional history exists *CXR OR CT FOR COPD EVER 10/08/2023 Influenza Vaccine (FLU shot) (#1) 2023 02/02/2021, [...] - Td or Tdap) 02/17/2028 02/16/2018, 08/13/2007 *BASELINE EKG FOR HTN Completed 10/23/2015 Lung Cancer Screening Completed 07/10/2017 , 09/08/2016, [...] as of this encounter Visit Diagnoses Diagnosis Community acquired pneumonia of right middle lobe of lung- Primary documented in this encounter Advance Directives [...] Directives occurred with: Not Discussed Care Teams Wind Turbine Machinist Relationship Specialty Start Date End Date Brigitte Byrd MD [address] [place] [address] [place] [phone] PCP - General Family Medicine 11/23/18 documented as of this encounter
--- OUTSIDE RECORDS SUMMARY | 2024-01-09 00:09 | External Medical Summary ---
Author Name Unknown Address Unknown Organization [id number]:[facility] - [address] [place] [address] Laboratory Report Ordering Provider Test Date Status MODE AVILA 10/17/2023 11:13:05 Final Standing order for pt/inr. < br/>Please draw pt/inr every 1 to 4 weeks as requested
Results to [facility] FAX results to [phone]

Warfarin Therapy
INR: 2.0-3.0 conventional anticoagulation
INR: 2.5-3.5 high intensity anticoagulation Observation Date Value Abnormality Reference (Units ) Status PT 10/17/2023 11:13:05 36.2 Above high normal 11 .6-15.2 (seconds) Final INR 10/17/2023 11:13:05 3.6 Above high normal 0. 8-1.2 Final Performing Location [facility] - [facility] [address] [place] [address]
--- OUTSIDE RECORDS SUMMARY | 2024-01-09 00:09 | External Medical Summary | Summary of Care ---
Author Name Unknown Organization [facility] Address [address] [facility] [place] [address] Phone [phone] Care Team Providers Care Change Director Name Role Phone Brigitte Byrd MD Primary Care Prov ider Reason for Visit * Reason Comments Dosage Adjustment Via Phone (anticoag Cl inic) Encounter Details Date Type Department Care Team (Late st Contact Info) Description 10/18/2023 6:30 AM EDT Anticoagulation [facility], [facility]ona Doss [address] [place] [address] [place] [address] [place] [address] Chronic atrial fibrillation (HCC)* Allergies Active Allergy Reactions Criticality Noted Date Comments Diclofenac Resin Rash Low 11/15/1999 Voltaren Atorvastatin Calcium Muscle pain 11/23/2018 Rosuvastatin Muscle pain 11/23/2018 documented as of this encounter (statuses as of 10/18/2023) Medications Medication Sig Dispensed Refills Start Date [...] Active Pylera 140-125-125 MG Oral Capsule (Bis Uqobso-Zpbgfazj-Tcft acyc) 3 capsules 4 times/day x 10 days 120 Capsule 2 Active Additional Information Patient not taking.Reported on 10/16/2023 NovoLOG FlexPen 100 UNIT/ML Subcutaneous Solution Pen-injector (insulin aspart)Indications:T ype 2 diabetes mellitus with hemoglobin A1c goal of less than 8.0% ([facility]) inject 20 units WITH BREAKFAST, 10 UNITS WITH MIDDAY SNACK, 10 UNITS WITH SUPPER (CF:1:40 OVER 160) 45 mL 3 3 Active Atenolol 25 MG Oral Tablet (Tenormin)Indication s:Atherosclerosis of [place] coronary artery of [place] heart without angina pectoris take 1/2 tablet [...] Nasal Suspension (Flonase)Indications :Allergic rhinitis Administer 1 Mina into nostril in the morning. 48 mL [...] type II, insulin dependent ([facility]) USE TEST STRIPS TO TEST BLOOD SUGARS THREE TIMES DAILY 300 Strip 2 4 Active DULoxetine HCl 30 MG Oral Capsule Delayed Release Particles (Cymbalta)Indication s:Moderate episode of recurrent major depressive disorder ([facility]) take 1 capsule by mouth every morning 90 Capsule 1 4 Active FreeStyle Test In Vitro Strip (Glucose Blood)Indications:Ty pe 2 diabetes mellitus with hemoglobin A1c goal of less than 8.0% ([facility]) Use to test 3 times a [...] of recurrent major depressive disorder ([facility]) take 1 tablet by mouth BEFORE BEDTIME [...] Tablet (Coumadin)Indication s:Chronic atrial fibrillation ([facility]) Take 1-2 Tablets by mouth every evening. Or take as instructed by the [facility]. Due for INR. 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 30 Tablet 1 4 Active Hospital, Clinic, or Other Facility Administered Medication Ordered Dose Route Frequency Start Date End Date Status Albuterol Sulfate (Proventil) (2.5 MG/3ML) 0.083% inhalation solution 2.5 mgIndications:COPD exacerbation (HCC) 2.5 mg NEBULIZER ONCE PRN 10/16/2023 10/15/2024 Active documented as of this encounter (statuses as of 10/18/2023) Active Problems Problem Noted Date Diagnosed Date Moderate episode of recurrent major depressive d isorder 10/16/2023 Reactive arthritis of multiple sites 07/05/2023 Food insecurity 07/03/2023 Overview: Per [employer] [facility] Protocol Diabetic peripheral neuropathy 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 06/20 [...] situ 11/23/2018 Chronic atrial fibrillation 08/24/2018 Overview: [facility] Dr Armenta Diabetes mellitus, type [...] CORONARY ATHEROSCLEROSIS OF UNSPECIFIED TYPE OF VESSEL, [place] OR GRAFT Peptic ulcer Asthma, mild persistent HLA B27 (HLA B27 positive) documented as of this encounter (statuses as of 10/18/2023) Resolved Problems Problem Noted Date Diagnosed Date [...] as of this encounter (statuses as of 10/18/2023) Immunizations Name Administration Dates Next Due COVID-19 mRNA, LNP-s, No Pre serve, 2-Dose Series (Moderna) 10/23/2020,06/23/2020 H1N1 2009 Influenza, IM 04/06/2009 Pneumococcal Conjugate Vacci ne, 20-valent ([id number]) 11/19/2021 Pneumococcal Polysaccharide PPV23 (Pneumovax) 02/09/2007 Seasonal [...] Date Smoking Tobacco: Every Day Cigarettes 0.5 51.6 Started: 1972 Pipe Cigars Smokeless Tobacco: Never [...] as of this encounter Progress Notes * Kaya Ulloa CPhT - 10/18/2023 1:52 PM EDT Contacts Type Contact Phone/Fax 10/18/2023 12:59 PM EDT Phone (Outgoing) Randall Hawkins Alan Raman (Self) [phone] (M) Subjective Patient Findings Negatives: Signs/symptoms of bleeding, Change in health, Change in activity, Upcoming invasive procedure, Missed doses, Extra doses, Change in medications, Change in diet/appetite, Bruising Advised patient to contact Anticoagulation Clinic if any unusual bruising or bleeding, recent illness, changes in medication, or questions/concerns. PT/INR results, Coumadin dose instructions, and next PT/INR date communicated as noted by Pharmacist: Yes Kaya Ulloa CPhT 10/18/2023, 1:53 PM * Yuni Soria RP - 10/18/2023 9:54 AM EDT Images from the original note were not included. Coumadin Clinic (region specific) Objective Current Warfarin Dose As of 10/18/2023 Warfarin maintenance plan: 5 mg (5 mg x 1) every Mon; 10 mg (5 mg x 2) all other days INR Result As of 10/18/2023 INR goal: 2.0-3.0 INR used for dosin.6 (10/17/2023) Assessment & Plan Warfarin Plan As of 10/18/2023 Full warfarin instructions: 5 mg every Mon, Tracey; 10 mg all other days Next INR check: 10/31/2023 Repeat PT/INR in 2 week(s) Weekly dose: decreased Additional Dosing Information: Description [facility] to contact patient with dose instructions as noted. Yuni Soria RP 10/18/2023, 9:54 AM documented in this encounter Plan of Treatment Upcoming Encounters Date Type Department Care Team (Late st Contact Info) Description 10/25/2023 3:00 PM EDT Office Visit Family Medicine [address] [place] [phone] Brigitte Byrd MD [address] [place] [address] [place] [address] 11/16/2023 1:00 PM EDT Telemedicine Pharmacy, [facility] [address] [facility] [place] [address] [facility] [place] [address] 11/22/2023 2:30 PM EDT PulmDiagnostic Pulmonary Function Lab, [facility] [address] [facility] [place] [address] [place], Pft [address] [facility] [place] [address] 11/28/2023 1:00 PM EDT Office Visit Pulmonary Medicine, [address] [place] [address] Miguel Munoz MD [address] [facility] [place] [address] 12/22/2023 3:20 PM EDT Office Visit Rheumatology [address] [place] [phone] Demetrius Aj MD [address] [facility] [place] [address] 01/22/2024 2:00 PM EDT Office Visit Family Medicine [address] [phone] Brigitte Byrd MD [address] [place] [address] [place] [address] Scheduled Procedures Name Priority [...] Directives occurred with: Not Discussed Care Teams Change Director Relationship Specialty Start Date End Date Brigitte Byrd MD [address] [place] [address] [place] [address] PCP - General Family Medicine 11/23/18 documented as of this encounter
--- OUTSIDE RECORDS SUMMARY | 2024-01-09 00:09 | External Medical Summary ---
Author Name Unknown Address Unknown Organization K01:[facility] [place] [address] [place] [address] Laboratory Report Ordering Provider Test Date Status TAE THOMAS 10/17/2023 11:09:29 Final Observation Date Value Abnormality Reference (Units ) Status HbA1C 10/17/2023 11:09:29 6.5 Above high normal 4. 0-5.6 (%) Final The use of HbA1c to monitor glycemic status is based on normal hemoglobin and HbA composition. This test should not be used in patients with abnormal hemoglobin that affects the half life of the red blood cell or the in vivo glycation rates. Glucose, estimated average 10/17/2023 11:09:29 140 Above high normal <126 (mg/dL) Francisco chisholm Performing Location [facility] [place] - [address] [place] [address]
--- OUTSIDE RECORDS SUMMARY | 2024-01-09 00:09 | External Medical Summary | Summary of Care ---
Author Name Unknown Organization [facility] Address [address] [facility] [place] [address] Phone [phone] Care Team Providers Care Live Games Dealer Name Role Phone Brigitte Byrd MD Primary Care Prov ider Reason for Visit * Reason Comments eRx-Medication Refill Encounter Details Date Type Department Care Team (Late st Contact Info) Description 10/29/2023 Refill Family Medicine [address] [phone] Brigitte Byrd MD [address] [place], [place] [address] [address] Mild persistent asthma with acute exacerbation; COPD, group B, by GOLD 2017 classification ([facility]) Allergies Active Allergy Reactions Criticality Noted Date Comments Diclofenac Resin Rash Low 11/15/1999 Voltaren Atorvastatin Calcium Muscle pain 11/23/2018 Rosuvastatin Muscle pain 11/23/2018 documented as of this encounter (statuses as of 10/30/2023) Medications Medication Sig Dispensed Refills Start Date End Date Status MULTIVITAMINS PO TABS one tab daily Active Insulin Syringe-Needle U-100 30G X 1/2" 0.3 ML MISCIndications:DM type 2 nursing care encounter ([facility]) Use as directed. [address] [...] for severe constipation 1 Bottle 2 01/03/20 Active Additional Information Patient not taking.Reported on [...] hemoglobin A1c goal of less than 8.0% ([facility]) Use as directed . Test 3 times daily. Pt is on insulin Dx E11.9 1 Kit 04/30/19 Active Pylera 140-125-125 MG Oral Capsule (Bis Fcmihc-Iqrpbhyl-Cdh racyc) 3 capsules 4 times/day x 10 days 120 Capsule 05/05/19 Active Additional Information Patient not taking.Reported on 10/16/2023 NovoLOG FlexPen 100 UNIT/ML Subcutaneous Solution Pen-injector (insulin aspart)Indications: Type 2 diabetes mellitus with hemoglobin A1c goal of less than 8.0% (HCC) inject 20 units WITH BREAKFAST, 10 UNITS WITH MIDDAY SNACK, 10 UNITS WITH SUPPER (CF:1:40 OVER 160) 45 mL 3 05/24/19 23 Active Atenolol 25 MG Oral Tablet (Tenormin)Indicatio ns:Atherosclerosis of [place] coronary artery of [place] heart without angina pectoris take 1/2 tablet [...] Nasal Suspension (Flonase)Indication s:Allergic rhinitis Administer 1 [place] into nostril in the morning. 48 mL 1 12/04/19 23 Active BD Pen Needle Short U/F 31G X 8 MM (Insulin Pen Needle)Indications: Type 2 diabetes mellitus with hemoglobin A1c goal of less than 8.0% ([facility]) USE 5 TIMES DAILY WITH INSULIN [...] hemoglobin A1c goal of less than 8.0% ([facility]),Diabetes mellitus, type II, insulin dependent ([facility]) USE TEST STRIPS TO TEST BLOOD SUGARS THREE TIMES DAILY 300 Strip 2 05/25/19 24 Active DULoxetine HCl 30 MG Oral Capsule Delayed Release Particles (Cymbalta)Indicatio ns:Moderate episode of recurrent major depressive disorder ([facility]) take 1 capsule by mouth every morning 90 Capsule 1 07/05/19 24 Active FreeStyle Test In Vitro Strip (Glucose Blood)Indications:T ype 2 diabetes mellitus with hemoglobin A1c goal of less than 8.0% ([facility]) Use to test 3 times a day. E11.9 300 Strip 2 07/21/19 24 Active LORazepam 0.5 MG Oral Tablet (Ativan)Indications :PTSD (post-traumatic stress disorder) take 1 tablet by mouth twice a day if needed for anxiety 60 Tablet 2 08/08/19 24 Active traZODone HCl 50 MG Oral [...] MG Oral Tablet (Coumadin)Indicatio ns:Chronic atrial fibrillation ([facility]) Take 1-2 Tablets by mouth every evening. Or take as instructed by the [facility]. Due for INR. 180 Tablet 09/21/19 24 Active HYDROcodone-Acetami nophen 10-325 MG Oral TabletIndications:C ervical stenosis of spinal canal,Lumbar degenerative disc disease Take 2.5 Tablets by mouth daily as needed for Pain, Severe. Take 0.5-1 tab every 8 hours as needed for severe pain. Max dose of 2.5 tablets per day. 75 Tablet 09/25/19 24 Active Insulin Glargine Solostar 100 UNIT/ML Subcutaneous Solution Pen-injector (Basaglar Harish)Indications :Type 2 diabetes mellitus with hemoglobin A1c goal of less than 8.0% ([facility]),Diabetes mellitus, type II, insulin dependent ([facility]) inject 20 units subcutaneously every morning and inject 10 units every NIGHT 30 mL 09/29/19 24 Active Trelegy Ellipta 100-62.5-25 MCG/ACT Aerosol Powder Breath Activated (Fluticasone-Umecli dinium-Vilanterol) inhale 1 puff by mouth and INTO THE LUNGS every morning 60 Blister Dosing Unit 5 10/11/19 24 Active predniSONE 5 MG Oral Tablet (Deltasone)Indicati ons: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 30 Tablet 1 10/16/19 24 Active Albuterol Sulfate HFA 108 (90 Base) MCG/ACT Inhalation Aerosol SolutionIndications :Mild persistent asthma with acute exacerbation,COPD, group B, by GOLD 2017 classification ([facility]) inhale 1 TO 2 puffs by mouth and INTO THE LUNGS every 2 hours if needed 8.5 g 5 10/30/19 24 Active Albuterol Sulfate HFA 108 (90 Base) MCG/ACT Inhalation Aerosol SolutionIndications :Mild persistent asthma with acute exacerbation,COPD, group B, by GOLD 2017 classification ([facility]) inhale 1 TO 2 puffs by mouth and INTO THE LUNGS every 2 hours if needed 8.5 g 5 07/24/19 24 024 Discontinued Hospital, Clinic, or Other Facility Administered Medication Ordered Dose Route Frequency Start Date End Date Status Albuterol Sulfate (Proventil) (2.5 MG/3ML) 0.083% inhalation solution 2.5 mgIndications:COPD exacerbation (HCC) 2.5 mg NEBULIZER ONCE PRN 10/16/2023 10/15/2024 Active documented as of this encounter (statuses as of 10/30/2023) Active Problems Problem Noted Date Diagnosed Date Moderate episode of recurrent major depressive d isorder 10/16/2023 Reactive arthritis of multiple sites 07/05/2023 Food insecurity 07/03/2023 Overview: Per [facility] Protocol Diabetic peripheral neuropathy 09/13/2022 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 06/20 History [...] situ 11/23/2018 Chronic atrial fibrillation 08/24/2018 Overview: [facility] Dr Armenta Diabetes mellitus, type [...] CORONARY ATHEROSCLEROSIS OF UNSPECIFIED TYPE OF VESSEL, [place] OR GRAFT Peptic ulcer Asthma, mild persistent HLA B27 (HLA B27 positive) documented as of this encounter (statuses as of 10/30/2023) Resolved Problems Problem Noted Date Diagnosed Date [...] as of this encounter (statuses as of 10/30/2023) Immunizations Name Administration Dates Next Due COVID-19 mRNA, LNP-s, No Pre serve, 2-Dose Series (Moderna) 10/23/2020,06/23/2020 H1N1 2009 Influenza, IM 04/06/2009 Pneumococcal Conjugate Vacci ne, 20-valent ([id number]) 11/19/2021 Pneumococcal Polysaccharide PPV23 (Pneumovax) 02/09/2007 Seasonal [...] encounter Miscellaneous Notes * Telephone Encounter - Alexi Jorge RPh - 10/30/2023 11:42 AM EDT Signed Prescriptions: Disp Refills Albuterol Sulfate HFA 108 (90 Base) MCG/AC*8.5 g 5 Sig: inhale 1TO 2 puffs by mouth and INTO THE LUNGS every 2 hours if neededAuthorizing Provider: BRIGITTE BYRD User: ALEXI JORGE documented in this encounter Plan of Treatment Upcoming Encounters Date Type Department Care Team (Late st Contact Info) Description 11/01/2023 6:30 AM EDT Anticoagulation Centralized Clinical Pharmacy Services, Corona Doss [address] [place] [address] [place] [address] [facility], [address] [place] [address] 11/16/2023 1:00 PM EDT Telemedicine Pharmacy, [address] [place] [address] [facility] [address] [facility] [place] [address] 11/22/2023 2:30 PM EDT PulmDiagnostic Pulmonary Function Lab, [facility] 132 [facility] [place] [address] [place], P[address] [facility] [place] [address] 11/28/2023 1:00 PM EDT Office Visit Pulmonary Medicine, [address] [place] [address] [facility] [address] [facility] [address] 12/22/2023 3:20 PM EDT Office Visit Rheumatology [address] [place] [phone] Demetrius Aj MD [facility] [place] [address] 01/22/2024 2:00 PM EDT Office Visit Family Medicine [address] [place] [phone] Brigitte Byrd MD [address] [place] [address] [place] [address] Scheduled Procedures Name Priority Associated Diagnoses Date/Ti me COLONOSCOPY FLEXIBLE PROXIMAL DIAGNOSTIC Recall History of colon polyps Health Maintenance Due Date Last Done Comments DISCUSS TOBACCO CESSATION (REFER TO SMARTSET #0845) 1955 Zoster Vaccines (1 of 2) 02/22/1975 [...] as of this encounter Visit Diagnoses Diagnosis Mild persistent asthma with acute exacerbation Unspecified asthma, with exacerbation COPD, group B, by GOLD 2017 classification (HCC) documented in this encounter Advance Directives [...] Directives occurred with: Not Discussed Care Teams Live Games Dealer Relationship Specialty Start Date End Date Brigitte Byrd MD [address] [place] [address] [place] [address] PCP - General Family Medicine 11/23/18 documented as of this encounter
--- OUTSIDE RECORDS SUMMARY | 2024-01-09 00:09 | External Medical Summary ---
Author Name Unknown Address Unknown Organization K01:[facility] - [address] [place] [address] Laboratory Report Ordering Provider Test Date Status BERNABE NICOLAS 10/17/2023 11:09:29 Final Observation Date Value Abnormality Reference (Units ) Status PSA 10/17/2023 11:09:29 2.14 <4.10 (ng/ mL) Final Performing Location [facility] - [address] [place] [address]
--- OUTSIDE RECORDS SUMMARY | 2024-01-09 00:09 | External Medical Summary ---
Author Name Unknown Address Unknown Organization [id number]:LABORATORY [facility] - [address] [place] [address] Laboratory Report Ordering Provider Test Date Status ALEXIJCONOFRE 10/17/2023 11:09:29 Final Normal: <30 mg/g creatinine< br/>High: 30-300 mg/g creatinine
Very High: >300 mg/g creatinine
Nephrotic: >2200 mg/g creatinine Observation Date Value Abnormality Reference (Units ) Status Albumin, Urine 10/17/2023 11:09:29 4.37 (mg/dL) Final Creatinine, Urine 10/17/2023 11:09:29 261 (mg/dL) Final Albumin/Creatinine [Mass Ratio] in Urine 10/17/2023 11:09:29 17 <30 (mg/g Creat) Final Performing Location LABORATORY [facility] - [address] [place] [address]
--- OUTSIDE RECORDS SUMMARY | 2024-01-09 00:09 | External Medical Summary ---
Author Name Unknown Address Unknown Organization K01:LAB[facility]ATORY [facility] [place] - [address] [place] [address] Laboratory Report Ordering Provider Test Date Status TAE THOMAS 10/17/2023 11:09:29 Final Observation Date Value Abnormality Reference (Units ) Status LDL, (direct) 10/17/2023 11:09:29 92 <=129 (mg/dL) Final LDL Cholesterol Reference Ra nges (mg/dL):
<70 Target level for high risk ASCVD patient
<100 Optimal for general population
100-129 Near optimal for general population
130-159 Borderline high
160-189 High
>=190 Very high Performing Location [facility] - [address] [place] [address]
--- OUTSIDE RECORDS SUMMARY | 2024-01-09 00:09 | External Medical Summary | Summary of Care ---
Author Name Unknown Organization [facility] Address [address] [facility] [place] [address] Phone [phone] Care Team Providers Care Director Technical Name Role Phone Brigitte Byrd MD Primary Care Prov ider Reason for Referral * Medication Prior Authorization - Closed Specialty Diagnoses / Procedures Referred By Contbriana t Referred To Contact Diagnoses Cervical stenosis of spinal canal Lumbar degenerative disc disease Brigitte Byrd MD [address] [place] [address] [place] [id number] Referral ID Status Reason Start Date Expiration Date Visits Re quested Visits Authorized [id number] Closed 999 999 Reason for Visit * Reason Onset Date Comments Medication Refill 10/29/2023 Encounter Details Date Type Department Care Team (Late st Contact Info) Description 10/29/2023 Refill Family Medicine [address] [place] [phone] Rosa Borja MD [address] [place] [address] [place] [phone] Cervical stenosis of spinal canal; Lumbar degenerative disc disease Allergies Active Allergy Reactions Criticality Noted Date Comments Diclofenac Resin Rash Low 11/15/1999 Voltaren Atorvastatin Calcium Muscle pain 11/23/2018 Rosuvastatin Muscle pain 11/23/2018 documented as of this encounter (statuses as of 10/31/2023) Medications Medication Sig Dispensed Refills Start Date [...] (3) MG/3ML Inhalation Solution (Duoneb)Indications :COPD exacerbation ([facility]) INHALE 1 VIAL VIA NEBILIZER TWICE A DAY AND EVERY 6 HOURS IN BETWEEN NEEDED 270 mL 5 1 Active Accu-Chek Guide w/Device KitIndications:Type 2 diabetes mellitus with hemoglobin A1c goal of less than 8.0% ([facility]) Use as directed . Test 3 times daily. Pt is on insulin Dx E11.9 1 Kit 2 Active Pylera 140-125-125 MG Oral Capsule (Bis Tmqgss-Axmntruj-Ovj racyc) 3 capsules 4 times/day x 10 days 120 Capsule 2 Active Additional Information Patient not taking.Reported on 10/16/2023 NovoLOG FlexPen 100 UNIT/ML Subcutaneous Solution Pen-injector (insulin aspart)Indications: Type 2 diabetes mellitus with hemoglobin A1c goal of less than 8.0% ([facility]) inject 20 units WITH BREAKFAST, 10 UNITS WITH MIDDAY SNACK, 10 UNITS WITH SUPPER (CF:1:40 OVER 160) 45 mL 3 3 Active Atenolol 25 MG Oral Tablet (Tenormin)Indicatio ns:Atherosclerosis of [place] coronary artery of [place] heart without angina pectoris take 1/2 tablet [...] Nasal Suspension (Flonase)Indication s:Allergic rhinitis Administer 1 [place] into nostril in the morning. 48 mL 1 3 Active BD Pen Needle Short U/F 31G X 8 MM (Insulin Pen Needle)Indications: Type 2 diabetes mellitus with hemoglobin A1c goal of less than 8.0% ([facility]) USE 5 TIMES DAILY WITH INSULIN [...] evening. Or take as instructed by the [facility]. Due for INR. 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 30 Tablet 1 4 Active Albuterol Sulfate HFA 108 (90 Base) MCG/ACT Inhalation Aerosol SolutionIndications :Mild persistent asthma with acute exacerbation,COPD, group B, by GOLD 2017 classification ([facility]) inhale 1 TO 2 puffs by [...] 2.5 tablets per day. 75 Tablet 4 10/29/19 24 Discontinu ed(Refill) Hospital, Clinic, or Other Facility Administered Medication Ordered Dose Route Frequency Start Date End Date Status Albuterol Sulfate (Proventil) (2.5 MG/3ML) 0.083% inhalation solution 2.5 mgIndications:COPD exacerbation (HCC) 2.5 mg NEBULIZER ONCE PRN 10/16/2023 10/15/2024 Active documented as of this encounter (statuses as of 10/31/2023) Active Problems Problem Noted Date Diagnosed Date Moderate episode of recurrent major depressive d isorder 10/16/2023 Reactive arthritis of multiple sites 07/05/2023 Food insecurity 07/03/2023 Overview: Per [facility] Protocol Diabetic peripheral neuropathy 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 06/20 [...] situ 11/23/2018 Chronic atrial fibrillation 08/24/2018 Overview: [facility] Dr Armenta Diabetes mellitus, type [...] CORONARY ATHEROSCLEROSIS OF UNSPECIFIED TYPE OF VESSEL, [place] OR GRAFT Peptic ulcer Asthma, mild persistent HLA B27 (HLA B27 positive) documented as of this encounter (statuses as of 10/31/2023) Resolved Problems Problem Noted Date Diagnosed Date [...] as of this encounter (statuses as of 10/31/2023) Immunizations Name Administration Dates Next Due COVID-19 mRNA, LNP-s, No Pre serve, 2-Dose Series (Moderna) 10/23/2020,06/23/2020 H1N1 2009 Influenza, IM 04/06/2009 Pneumococcal Conjugate Vacci ne, 20-valent ([id number]) 11/19/2021 Pneumococcal Polysaccharide PPV23 (Pneumovax) 02/09/2007 Seasonal [...] No 06/07/2023 Does the household have a [facility] source of income? (Household [...] Telephone Encounter - Brigitte Byrd MD - 10/31/2023 10:45 AM EDTSigned Prescriptions: Disp Refills HYDROcodone-Acetaminophen 10-325 MG Oral T*75 Tab*0 Sig: Take 2.5 Tablets by mouth daily as needed for Pain, Severe. Take 0.5-1 tab every 8 hours as needed for severe pain. Max dose of 2.5 tablets per day. Authorizing Provider: BRIGITTE BYRD * Telephone Encounter - Luis Alberto Burch [facility] - 10/30/2023 1:41 PM EDT Pending Prescriptions: Disp Refills HYDROcodone-Acetaminophen 10-325 MG Oral T*75 Tab*0 Sig: Take 2.5 Tablets by mouth daily as needed for Pain, Severe. Take 0.5-1 tab every 8 hours as needed for severe pain. Max dose of 2.5 tablets per day. * Telephone Encounter - Luis Alberto Burch RP - 10/30/2023 1:40 PM EDT I have reviewed the patients controlled substance dispensing history in the Prescription Drug Monitoring Program in compliance with the [facility] regulations before prescribing a controlled substance. PDMP checked on 10/30/2023. Pending Prescriptions: Disp Refills HYDROcodone-Acetaminophen 10-325 MG Oral *75 Tab*0 Sig: Take 2.5 Tablets by mouth daily as needed for Pain, Severe. Take 0.5-1 tab every 8 hours as needed for severe pain. Max dose of 2.5 tablets per day. Last Visit: 10/16/2023 (in office), 08/29/2023 (telemedicine) Next Visit: 01/22/2024 Date medication was last filled: 09/26/23 Date medication is due for refill: 10/21/23 Pharmacy: [id number] [facility] Is this request for a controlled substance? Yes and Urine Drug Screen Not completed Please approve if appropriate. Thanks, Luis Alberto Burch, PharmD Clinical Pharmacist Centralized Clinical Pharmacy Services ([facility]) [phone] 10/30/2023, 1:40 PM documented in this encounter Plan of Treatment Upcoming Encounters Date Type Department Care Team (Late st Contact Info) Description 11/01/2023 6:30 AM EDT Anticoagulation Centralized Clinical Pharmacy Services, Corona Doss [address] [place] [address] [place] [phone] [place] [address] 11/16/2023 1:00 PM EDT Telemedicine Pharmacy, [address] [place] [address] [facility] 132 [facility] [place] [address] 11/22/2023 2:30 PM EDT PulmDiagnostic Pulmonary Function Lab, [facility] 132 [facility] [place] [address] [place], Pft [address] [place], [place] [address] [address] 11/28/2023 1:00 PM EDT Office Visit Pulmonary Medicine, [address] [place] [address] Miguel Munoz MD [address] [facility] [place] [address] 12/22/2023 3:20 PM EDT Office Visit Rheumatology [address] [place] [phone] Demetrius Aj [facility] [address] 01/22/2024 2:00 PM EDT Office Visit Family Medicine [address] [place] [phone] Brigitte Byrd MD [address] [place] [address] [place] [address] Scheduled Procedures Name Priority Associated Diagnoses Date/Ti me COLONOSCOPY FLEXIBLE PROXIMAL DIAGNOSTIC Recall History of colon polyps Health Maintenance Due Date Last Done Comments DISCUSS TOBACCO CESSATION (REFER TO SMARTSET #8888) 1955 Zoster Vaccines (1 of 2) 02/22/1975 [...] 04/18/2024 10/17/2023, 12, 09/14/2022, Additional history exists O2 ASSESSMENT COMPLETED [...] occurred with: Not Discussed Care Teams Director Technical Relationship Specialty Start Date End Date Brigitte Byrd MD [address] [place] [address] [place] [address] PCP - General Family Medicine 11/23/18 documented as of this encounter
--- OUTSIDE RECORDS SUMMARY | 2024-01-09 00:09 | External Medical Summary ---
Author Name Unknown Address Unknown Organization K01:LAB[facility]ATORY [facility] [place] [address] [place] [address] Laboratory Report Ordering Provider Test Date Status BERNABE NICOLAS 10/17/2023 11:09:29 Final Observation Date Value Abnormality Reference (Units ) Status Cortisol 10/17/2023 11:09:29 10.3 2.5-19.5 ( ug/dL) Final AM Reference Range: 4.8 - 19 .5 ug/dL
PM Reference Range: 2.5 - 11.9 ug/dL Performing Location LAB[facility]ORY [facility] [place] [address] [place] [address]
--- OUTSIDE RECORDS SUMMARY | 2024-01-09 00:09 | External Medical Summary ---
Author Name Unknown Address Unknown Organization K01:LABORATORY [facility] [place] - [address] [place] [address] Laboratory Report Ordering Provider Test Date Status BERNABE NICOLAS 10/17/2023 11:09:29 Final Observation Date Value Abnormality Reference (Units ) Status BUN 10/17/2023 11:09:29 15 6-20 (mg/dL) Final Creatinine 10/17/2023 11:09:29 0.8 0.6-1.2 (mg/dL) Final Glomerular filtration rate/1.73 sq M.predicted [Volume Rate/Area] in Serum, Plasma or Blood by Creatinine-based formula (CKD-EPI) 10/17/2023 11:09:29 >90 >=60 (mL/min) Final eGFR is calculated based on the CKD-EPI 2020 equation. Sodium 10/17/2023 11:09:29 140 135-146 (m mol/L) Final Potassium 10/17/2023 11:09:29 4.9 3.5-5.1 (m mol/L) Final Cl 10/17/2023 11:09:29 101 98-107 (mm ol/L) Final CO2 10/17/2023 11:09:29 30 22-32 (mmo l/L) Final Anion gap 10/17/2023 11:09:29 9 7-15 (mmol /L) Final Glucose 10/17/2023 11:09:29 142 Above high normal 70 -120 (mg/dL) Final Albumin 10/17/2023 11:09:29 4.3 3.8-5.0 (g /dL) Final AST (Aspartate aminotransferase) 10/17/2023 11:09:29 74 Above high normal 10-50 (U/L) Final Alk Phos 10/17/2023 11:09:29 59 35-130 (U/ L) Final Bilirubin, Total 10/17/2023 11:09:29 0.5 <=1 .2 (mg/dL) Final Calcium 10/17/2023 11:09:29 9.2 8.4-10.2 ( mg/dL) Final Protein 10/17/2023 11:09:29 6.5 6.0-8.3 (g /dL) Final ALT (Alanine aminotransferase) 10/17/2023 11:09:29 55 Above high normal 10-50 (U/L) Final Performing Location LABORATORY [facility] [place] - [address] [facility] [place] [address]
--- OUTSIDE RECORDS SUMMARY | 2024-01-09 00:09 | External Medical Summary ---
Author Name Unknown Address Unknown Organization K01:LABORATORY [facility] [place] - [address] [place] [address] Laboratory Report Ordering Provider Test Date Status TAE THOMAS 10/17/2023 11:09:29 Final Observation Date Value Abnormality Reference (Units ) Status Triglyceride 10/17/2023 11:09:29 310 Above high normal <=174 (mg/dL) Final Triglyceride Reference Range s (mg/dL):
<150 Acceptable
150-174 Borderline high
175-499 High
>=500 Very high Cholesterol 10/17/2023 11:09:29 170 <200 (mg /dL) Final Total Cholesterol Reference Ranges (mg/dL):
<200 Desirable
200-239 Borderline high
>=240 High HDL 10/17/2023 11:09:29 17 Below low normal >39 (mg/dL) Final HDL Cholesterol Reference Ra nges (mg/dL):
>=60 High (Desirable)
<50 Low (Undesirable) For Females
<40 Low (Undesirable) For Males NON-HDL CHOLESTEROL 10/17/2023 11:09:29 153 <=159 (mg/dL) Final Non-HDL Cholesterol Referenc e Range (mg/dL):
<100 Target level for high risk ASCVD patient
<130 Optimal for general population
130-159 Near optimal for general population
160-189 Borderline High
190-219 High
>=220 Very High Performing Location [facility] - [address] [place] [address]
--- OUTSIDE RECORDS SUMMARY | 2024-01-09 00:09 | External Medical Summary | Summary of Care ---
Author Name Unknown Organization [facility] Address [address] [place] [address] Phone [phone] Care Team Providers Care Molding Manager Name Role Phone Brigitte Byrd MD Primary Care Prov ider Reason for Referral * Evaluate & Treat - Unlimited Visits (Within 10 days (routine)) - Authorized Specialty Diagnoses / Procedures Referred By Contbriana t Referred To Contact Pulmonary Diseases / Pulmonary Diagnoses COPD exacerbation ([facility]) Brigitte Byrd MD [address] [place] [address] [place] [id number] Referral ID Status Reason Start Date Expiration Date Visits Requested Visits Authorized [id number] Authorized Specialty Services Required 10/16/[phone] Question Answer Referral Priority Within 10 days (routine) Where should this appointment be scheduled? [facility] Reason for Referral? Asthma/COPD Comments Patient believes he needs to take oral steroids buttermaker continuous churn to control his COPD. * Evaluate & Treat - Unlimited Visits (Within 10 days (routine)) - Authorized Specialty Diagnoses / Procedures Referred By Contbriana t Referred To Contact Rheumatology Diagnoses Reactive arthritis of multiple sites (HCC) Brigitte Byrd MD [address] [place] [address] [place] [id number] Referral ID Status Reason Start Date Expiration Date Visits Requested Visits Authorized [id number] Authorized Specialty Services Required 10/16/[phone] Question Answer Referral Priority Within 10 days (routine) Where should this appointment be scheduled? [facility] Reason for referral: Inflammatory arthritis/Autoimmune or Connective Tissue Diseases Comments Patient reports reactive arthritis and feels he needs to take prednisone 5mg correction. Unclear diagnosis for this. Has been requesting prednisone tapers for bronchitis (and getting it), but using it self directed 5mg daily. Reason for Visit * Reason Comments Acute Pt asking for day galloway, stated having SOB on exertion, usual productive cough, currently non productive, sinusitis. Declines fever. 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 Test 3 times daily. Pt is on insulin Dx E11.9 1 Kit 04/30/19 Active Pylera 140-125-125 MG Oral Capsule (Bis Rglewq-Ucjfeiig-Coq racyc) 3 capsules 4 times/day x 10 days 120 Capsule 05/05/19 22 Active Additional Information Patient not taking.Reported on 10/16/2023 NovoLOG FlexPen 100 UNIT/ML Subcutaneous Solution Pen-injector (insulin aspart)Indications: Type 2 diabetes mellitus with hemoglobin A1c goal of less than 8.0% ([facility]) inject 20 units WITH BREAKFAST, 10 UNITS WITH MIDDAY SNACK, 10 UNITS WITH SUPPER (CF:1:40 OVER 160) 45 mL 3 05/24/19 23 Active Atenolol 25 MG Oral Tablet (Tenormin)Indicatio ns:Atherosclerosis of [place] coronary artery of [place] heart without angina pectoris take 1/2 tablet [...] Nasal Suspension (Flonase)Indication s:Allergic rhinitis Administer 1 [place] into nostril in the morning. 48 mL 1 12/04/19 23 Active BD Pen Needle Short U/F 31G X 8 MM (Insulin Pen Needle)Indications: Type 2 diabetes mellitus with hemoglobin A1c goal of less than 8.0% ([facility]) USE 5 TIMES DAILY WITH [...] hemoglobin A1c goal of less than 8.0% ([facility]),Diabetes mellitus, type II, insulin dependent (HCC) USE [...] hemoglobin A1c goal of less than 8.0% ([facility]) Use to test 3 times a day. E11.9 300 Strip 2 07/21/19 24 Active Albuterol Sulfate HFA 108 (90 Base) MCG/ACT Inhalation Aerosol SolutionIndications :Mild persistent asthma with acute exacerbation,COPD, group B, by GOLD 2017 classification ([facility]) inhale 1 TO 2 puffs by mouth and INTO THE LUNGS every 2 hours if needed 8.5 g 5 07/24/19 24 Active LORazepam 0.5 MG Oral Tablet (Ativan)Indications :PTSD (post-traumatic stress disorder) take 1 tablet by mouth twice a day if needed for anxiety 60 Tablet 2 08/08/19 24 Active traZODone HCl 50 MG Oral Tablet (Desyrel)Indication s:Moderate episode of recurrent major depressive disorder ([facility]) take 1 tablet by mouth BEFORE BEDTIME [...] MG Oral Tablet (Coumadin)Indicatio ns:Chronic atrial fibrillation ([facility]) Take 1-2 Tablets by mouth every evening. Or take as instructed by the [facility]. Due for INR. 180 [...] Solostar 100 UNIT/ML Subcutaneous Solution Pen-injector (Basaglar KwikEddy)Indications :Type 2 diabetes mellitus with hemoglobin A1c goal of less than 8.0% ([facility]),Diabetes mellitus, type II, insulin dependent ([facility]) inject 20 units subcutaneously every morning and inject 10 units every NIGHT 30 mL 09/29/19 24 Active Trelegy Ellipta 100-62.5-25 MCG/ACT Aerosol Powder Breath Activated (Fluticasone-Umecli dinium-Vilanterol) inhale 1 puff by mouth and INTO THE LUNGS every morning 60 Blister Dosing Unit 5 10/11/19 24 Active predniSONE 5 MG Oral Tablet (Deltasone)Indicati ons: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 30 Tablet 1 10/16/19 24 Active predniSONE 10 MG Oral Tablet (Deltasone)Indicati ons:COPD exacerbation (HCC) Take 4 tabs for 2 days, 3 tabs for 2 days, 2 tabs for 2 days 1 tab for 2 days 20 Tablet 08/29/19 24 024 Discontinued Cefuroxime Axetil 500 MG Oral Tablet (Ceftin)Indications :COPD exacerbation (HCC),Acute non-recurrent maxillary sinusitis Take 1 Tablet by mouth in the morning and 1 Tablet before bedtime. 20 Tablet 08/29/19 24 024 Discontinued Hospital, Clinic, or Other Facility Administered Medication Ordered Dose Route Frequency Start Date End Date Status Albuterol Sulfate (Proventil) (2.5 MG/3ML) 0.083% inhalation solution 2.5 mgIndications:COPD exacerbation (HCC) 2.5 mg NEBULIZER ONCE PRN 10/16/2023 10/15/2024 Active documented as of this encounter (statuses as of 10/16/2023) Active Problems Problem Noted Date Diagnosed Date Moderate episode of recurrent major depressive d isorder 10/16/2023 Reactive arthritis of multiple sites 07/05/2023 Food insecurity 07/03/2023 Overview: Per [facility] Protocol Diabetic peripheral neuropathy 09/13/2022 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 06/20 History [...] situ 11/23/2018 Chronic atrial fibrillation 08/24/2018 Overview: [facility] Dr Armenta Diabetes mellitus, type [...] CORONARY ATHEROSCLEROSIS OF UNSPECIFIED TYPE OF VESSEL, [place] OR GRAFT Peptic ulcer Asthma, mild persistent HLA B27 (HLA B27 positive) documented as of this encounter (statuses as of 10/16/2023) Resolved Problems Problem Noted Date Diagnosed Date [...] as of this encounter (statuses as of 10/16/2023) Immunizations Name Administration Dates Next Due COVID-19 mRNA, LNP-s, No Pre serve, 2-Dose Series (Moderna) 10/23/2020,06/23/2020 H1N1 2009 Influenza, IM 04/06/2009 Pneumococcal Conjugate Vacci ne, 20-valent ([id number]) 11/19/2021 Pneumococcal Polysaccharide PPV23 (Pneumovax) 02/09/2007 Seasonal [...] uit: Not Asked; Counseling Given: Not Answered Alcohol Use Standard Drinks/Week Comments Yes 0 [...] Reading Time Taken Comments Blood Pressure 118/80 10/16/2023 3:58 PM EDT Pulse 74 10/16/2023 3:58 PM EDT Temperature 35.2 C (95.3 F) 10/16/2023 3:58 PM ED T Respiratory Rate 14 10/16/2023 3:58 PM EDT Oxygen Saturation 98% 10/16/2023 3:58 PM EDT Inhaled Oxygen Concentration - - Weight 101 kg (222 lb 9.6 oz) 10/16/2023 3:58 PM EDT Height - - Body Mass Index 31.05 03/15/2023 3:50 PM EST documented in this encounter Progress Notes * Brigitte Byrd MD - 10/16/2023 4:04 PM EDT Subjective Alan Pereira Jr. is a 68 year old male. Chief Complaint Patient presents with Acute Pt asking for prednisone, stated having SOB on exertion, usual productive cough, currently non productive, sinusitis. Declines fever. HPI: COPD exacerbation concerns Feeling increased SOB and cough. Feels he has bronchitis, recurrent bronchitis and sinusitis. + wheezing, + cough. Feels this flared up about 5 days ago. 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 Has been taking prednisone 5mg x 40 years. States he has held on to prednisone taper prescriptions, but using it as 5mg daily self managed to manage both COPD and arthritis. States his back and "whole body" are flared up since stopping prednisone. Ran out 5 days ago. COPD. Pulm regimen includes Trelegy daily, albuterol. States even with Trelegy (which helps) he still feels he needs to be on prednisone daily. CAD. Has had recent angiography with stents placed in the right circumflex. Had been seeing Dr rGigsby until she left the practice; waiting to find out who his new lens assistant will be. PMH: Patient Active Problem List Diagnosis Anomalous AV excitation CORONARY ATHEROSCLEROSIS OF UNSPECIFIED TYPE OF VESSEL, [place] OR GRAFT Peptic ulcer Myalgia Type 2 diabetes mellitus with hemoglobin A1c goal of less than 8.0% ([facility]) DYSLIPIDEMIA, GOAL LDL BELOW 70 MEDICATION USE AGREEMENT ADVANCE DIRECTIVE INFORMATION Tobacco use disorder GERD (gastroesophageal reflux disease) Diaphragm paralysis Obesity (BMI 30.0-34.9) Cervicalgia Cervical stenosis of spinal canal Asthma, mild persistent Lumbar degenerative disc disease Old myocardial infarction Insomnia HTN, goal below 140/90 Ventral hernia without obstruction or gangrene PTSD (post-traumatic stress disorder) Diabetes mellitus, type II, insulin dependent ([facility]) Chronic atrial fibrillation ([facility]) Cardiac pacemaker in situ Drug-induced constipation Statin intolerance HLA B27 (HLA B27 positive) Reactive arthritis (HCC) COPD, group B, by GOLD 2017 classification ([facility]) Encounter for long-term (current) use of medications Anginal pain ([facility]) Family hx of ALS (amyotrophic lateral sclerosis) Malaise and fatigue USP current use of systemic steroids History of 2019 novel coronavirus disease (COVID-19) Diabetic peripheral neuropathy (HCC) Reactive arthritis of multiple sites ([facility]) Food insecurity Moderate episode of recurrent major depressive disorder ([facility]) Current Outpatient Medications Medication Sig Dispense Refill [...] Constipation. for severe constipation. 240 mL 1 Aspirin Low Dose 81 MG Oral Tablet Chewable Take 1 Tablet by mouth in the morning. Ipratropium-Albuterol 0.5-2.5 (3) MG/3ML Inhalation Solution (Duoneb) INHALE 1 VIAL VIA NEBILIZER TWICE A DAY AND EVERY 6 HOURS IN BETWEEN NEEDED 270 mL 5 Accu-Chek Guide w/Device Kit Use as directed . Test 3 times daily. Pt is on insulin Dx E11.9 1 Kit 0 NovoLOG FlexPen 100 UNIT/ML Subcutaneous Solution Pen-injector (insulin aspart) inject 20 units WITH BREAKFAST, 10 UNITS WITH MIDDAY SNACK, 10 UNITS WITH SUPPER (CF:1:40 OVER 160) 45 mL 3 Atenolol 25 MG Oral Tablet (Tenormin) take 1/2 tablet by mouth every evening if needed for PALPITATIONS 45 Tablet 3 Fluticasone Propionate 50 MCG/ACT Nasal Suspension (Flonase) Administer 1 [place] into nostril in themorning. 48 mL 1 [...] times a day. E11.9 300 Strip 2 Albuterol Sulfate HFA 108 (90 Base) MCG/ACT Inhalation Aerosol Solution inhale 1 TO 2 puffs by mouth and INTO THE LUNGS every 2 hours if needed 8.5 g 5 LORazepam 0.5 MG Oral Tablet (Ativan) take 1 tablet by mouth twice a day if needed for anxiety 60 Tablet 2 traZODone HCl 50 MG Oral Tablet [...] Release take 1 tablet by mouth every [id number] Tablet 1 Hydroxychloroquine Sulfate 200 MG Oral Tablet (Plaquenil) Take 2 Tablets by mouth at bedtime. 180 Tablet 0 Warfarin Sodium 5 MG Oral Tablet (Coumadin) Take 1-2 Tablets by mouth every evening. Or take as instructed by the [facility]. Due for INR. 180 Tablet 0 HYDROcodone-Acetaminophen 10-325 MG Oral Tablet Take 2.5 Tablets by mouth daily as needed for Pain,Severe. Take 0.5-1 tab every 8 hours as needed for severe pain. Max dose of 2.5 tablets per day. 75Tablet 0 Insulin Glargine Solostar 100 UNIT/ML Subcutaneous Solution Pen-injector (Night UpPen) inject 20 units subcutaneously every morning and inject 10 units every NIGHT 30 mL 0 Trelegy Ellipta 100-62.5-25 MCG/ACT Aerosol Powder Breath Activated (Bjfwqlwcprf-Pbqmojnoihwf-Jegbgqxaiw) inhale 1 puff by mouth and INTO THE LUNGS every morning 60 Blister Dosing Unit 5 predniSONE 5 MG Oral Tablet (Deltasone) Take 1 Tablet by mouth in the morning. 30 Tablet 1 polyethylene glycol 3350 (MIRALAX) 255 gram powder Dissolve one heaping tablespoon in 8 ounces of water or juice - one dose per day as needed for severe constipation (Patient not taking: Reported on 10/16/2023) 1 Bottle 2 Pylera 140-125-125 MG Oral Capsule (Bis Vafryz-Prfxcfxq-Gbouvszc) 3 capsules 4 times/day x 10 days (Patient not taking: Reported on 10/16/2023) 120 Capsule 0 Zoster Vac Recomb Adjuvanted 50 MCG/0.5ML Intramuscular Suspension Reconstituted (Shingrix) Inject 0.5 mL into a large muscle now and repeat dose in 60 to 180 days (Patient not taking: Reported on 10/16/2023) 1 Each 1 Current Facility-Administered Medications Medication Dose Route Frequency Provider Last Rate Last Admin Albuterol Sulfate (Proventil) (2.5 MG/3ML) 0.083% inhalation solution 2.5 mg 2.5 mg Nebulizer Once PRN Review of patient's allergies indicates: Allergen Reactions Lipitor [Atorvastatin Calcium] Muscle pain Rosuvastatin Muscle pain Diclofenac Resin Rash Voltaren Objective BP 118/80 | Pulse 74 | Temp 35.2 C (95.3 F) | Resp 14 | Wt 101 kg (222 lb 9.6 oz) | SpO2 98% | BMI 31.05 kg/m | BSA 2.25 m Physical Exam Constitutional: Appearance: Normal appearance. HENT: Head: Normocephalic. Cardiovascular: Rate and Rhythm: Normal rate and regular rhythm. Pulses: Normal pulses. Pulmonary: Effort: Pulmonary effort is normal. Breath sounds: Wheezing present. Comments: Right base wheezing Skin: General: Skin is warm and dry. Neurological: Mental Status: He is alert. Psychiatric: Mood and Affect: Mood normal. ASSESSMENT/PLAN: COPD exacerbation ([facility]) (Primary) - SPIROMETRY B/A BRONCHODILATOR; Future; Expected date: 10/23/2023 - Albuterol Sulfate (Proventil) (2.5 MG/3ML) 0.083% inhalation solution 2.5 mg - XR CHEST 2 VIEWS - PULMONARY REFERRAL OP Type 2 diabetes mellitus with hemoglobin A1c goal of less than 8.0% ([facility]) - COMPREHENSIVE METABOLIC PANEL; Future; Expected date: 10/16/2023 - LIPID PANEL WITH DIRECT LDL IF TG IS HIGH; Future; Expected date: 10/16/2023 - HEMOGLOBIN A1C; Future; Expected date: 10/16/2023 HTN, goal below 140/90 - COMPREHENSIVE METABOLIC PANEL; Future; Expected date: 10/16/2023 - LIPID PANEL WITH DIRECT LDL IF TG IS HIGH; Future; Expected date: 10/16/2023 - HEMOGLOBIN A1C; Future; Expected date: 10/16/2023 Reactive arthritis of multiple sites ([facility]) - RHEUMATOLOGY REFERRAL OP - CORTISOL; Future; Expected date: 10/16/2023 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 Screening for prostate cancer - PSA; Future; Expected date: 10/16/2023 Follow Up: Return in about 3 months (around 01/16/2024) for Return with Physician. | For: Return with Physician Inappropriate use of prednisone Has called to get refills of prednisone tapers for both 'Copd exacerbation" and "Arthritis". Needs PFTs, pulm and rheum consultations. Referrals signed again. As he has been taking prednisone buttermaker continuous churn, will refill 5mg dose to get him to Rheum consult; but unclear need for this medication. Can call if wants to establish with [facility] Brigitte Joseph MD documented in this encounter Nursing Notes * Keo Hinojosa MED ASSIST - 10/16/2023 3:58 PM EDT The patient has been properly identified by confirmation of name and date of . Chief Complaint Patient presents with Acute Pt asking for prednisone, stated having SOB on exertion, usual productive cough, currently non productive, sinusitis. Declines fever. documented in this encounter Plan of Treatment Upcoming Encounters Date Type Department Care Team (Late st Contact Info) Description 10/23/2023 6:30 AM EDT Anticoagulation [facility], [facility] [address] [place] [address] [place] [address] [place] [address] 10/25/2023 3:00 PM EDT Office Visit Family Medicine [address] [place] [phone] Brigitte Byrd MD [address] [place] [address] [place] [phone] 11/16/2023 1:00 PM EDT Telemedicine Pharmacy, [facility] [address] [place] [address] [facility] [address] [place] [address] 11/22/2023 2:30 PM EDT PulmDiagnostic Pulmonary Function Lab, [facility] [address] [facility] [facility] [place] [address] [place] [place] [phone] 11/28/2023 1:00 PM EDT Office Visit Pulmonary Medicine, [facility] [address] [place] [phone] Miguel Munoz MD [address] [place] [address] 12/22/2023 3:20 PM EDT Office Visit Rheumatology [address] [place] [phone] Demetrius Aj MD [facility] [place], [place] [address] Scheduled Orders Name Type Priority Associated Diagnoses Orde r Schedule COMPREHENSIVE METABOLIC PANEL Lab Routine Type 2 diabetes mellitus with hemoglobin A1c goal of less than 8.0% ([facility]) HTN, goal below 140/90 Expected: 10/16/2023 (Approximate), Expires: 10/15/2024 LIPID PANEL WITH DIRECT LDL IF TG IS HIGH Lab Routine Type 2 diabetes mellitus with hemoglobin A1c goal of less than 8.0% ([facility]) HTN, goal below 140/90 Expected: 10/16/2023, Expires: 10/15/2024 HEMOGLOBIN A1C Lab Routine Type 2 diabetes mellitus with hemoglobin A1c goal of less than 8.0% ([facility]) HTN, goal below 140/90 Expected: 10/16/2023 (Approximate), Expires: 10/15/2024 SPIROMETRY B/A BRONCHODILATOR Procedures Routine COPD exacerbation ([facility]) Expected: 10/23/2023, Expires: 11/15/2024 XR CHEST 2 VIEWS Medical Imaging Routine COPD exacerbation ([facility]) Ordered: 10/16/2023 CORTISOL Lab Routine Reactive arthritis of multiple sites ([facility]) USP current use of systemic steroids Expected: 10/16/2023 (Approximate), Expires: 10/15/2024 PSA Lab Routine Screening for prostate cancer Expected: 10/16/2023 (Approximate), Expires: 10/15/2024 Scheduled Procedures Name Priority Associated Diagnoses Date/Ti me COLONOSCOPY FLEXIBLE PROXIMAL DIAGNOSTIC Recall History of colon polyps Scheduled Referrals Name Type Priority Associated Diagnoses Orde r Schedule RHEUMATOLOGY REFERRAL OP Referral Within 10 days (routine) Reactive arthritis of multiple sites (HCC) Ordered: 10/16/2023 PULMONARY REFERRAL OP Referral Within 10 days (routine) COPD exacerbation (HCC) Ordered: 10/16/2023 Health Maintenance Due Date Last Done Comments [...] 09/13/2022, 0 05/27/2021, 06/12/2019, Additional history exists HbA1c 09/14/2023 03/15/2023, 0603/2022, 05/27/2021, Additional history exists Albumin/Creatinine Ratio 09/15/2023 023, 05/27/2021, 05/28/2020, Additional history exists *CXR OR CT FOR COPD EVER 10/08/2023 Influenza Vaccine (FLU shot) (#1) 2023 02/02/2021, 02/02/2021, 01/14/2020, Additional history exists GFR 07/09/2024 07/10/2023, 06/25, 05/24/2023, Additional history exists O2 ASSESSMENT COMPLETED IN PAST YEAR FOR COPD 10/15/2024 10/16/2023 Colonoscopy 08/12/2026 08/12/2021, 09/24, 08/04/2009 Colorectal Cancer [...] as of this encounter Visit Diagnoses Diagnosis COPD exacerbation (HCC)- Primary Obstructive chronic bronchitis with exacerbation Type 2 diabetes mellitus with hemoglobin A1c goal of less than 8.0% (HCC) HTN, goal below 140/90 Unspecified essential hypertension Reactive arthritis of multiple sites (HCC) Muriel's disease 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 Encounter for long-term (current) use of steroids Screening for prostate cancer Special screening for malignant neoplasm of prostate documented in this encounter Advance Directives * [...] Directives occurred with: Not Discussed Care Teams Molding Manager Relationship Specialty Start Date End Date Brigitte Byrd MD [address] [place] [address] [place] [phone] PCP - General Family Medicine 11/23/18 documented as of this encounter
--- OUTSIDE RECORDS SUMMARY | 2024-01-09 00:09 | External Medical Summary | Summary of Care ---
Author Name Unknown Organization [facility] Address [address] [facility] [place] [address] Phone [phone] Care Team Providers Care Vascular Technician Name Role Phone Brigitte Byrd MD Primary Care Prov ider Reason for Visit * Reason Comments Outpatient Testing Encounter Details Date Type Department Care Team (Late st Contact Info) Description 10/17/2023 11:10 AM EDT Laboratory Laboratory [address] [place] [phone] [place], Lab [address] [place] [address] Diabetic peripheral neuropathy (HCC); Type 2 diabetes mellitus with hemoglobin A1c goal of less than 8.0% ([facility]); HTN, goal below 140/90; Reactive arthritis of multiple sites (HCC); snf current use of systemic steroids; Screening for prostate cancer; Chronic atrial fibrillation (HCC) Allergies Active Allergy Reactions Criticality Noted Date Comments Diclofenac Resin Rash Low 11/15/1999 Voltaren Atorvastatin Calcium Muscle pain 11/23/2018 Rosuvastatin Muscle pain 11/23/2018 documented as of this encounter (statuses as of 10/17/2023) Medications Medication Sig Dispensed Refills Start Date [...] (3) MG/3ML Inhalation Solution (Duoneb)Indications: COPD exacerbation ([facility]) INHALE 1 VIAL VIA NEBILIZER TWICE A DAY AND EVERY 6 HOURS IN BETWEEN NEEDED 270 mL 5 1 Active Accu-Chek Guide w/Device KitIndications:Type 2 diabetes mellitus with hemoglobin A1c goal of less than 8.0% ([facility]) Use as directed . Test 3 times daily. Pt is on insulin Dx E11.9 1 Kit 2 Active Pylera 140-125-125 MG Oral Capsule (Bis Aezouu-Zdkrvizn-Yuqp acyc) 3 capsules 4 times/day x 10 days 120 Capsule 2 Active Additional Information Patient not taking.Reported on 10/16/2023 NovoLOG FlexPen 100 UNIT/ML Subcutaneous Solution Pen-injector (insulin aspart)Indications:T ype 2 diabetes mellitus with hemoglobin A1c goal of less than 8.0% ([facility]) inject 20 units WITH BREAKFAST, 10 UNITS WITH MIDDAY SNACK, 10 UNITS WITH SUPPER (CF:1:40 OVER 160) 45 mL 3 3 Active Atenolol 25 MG Oral Tablet (Tenormin)Indication s:Atherosclerosis of [place] coronary artery of [place] heart without angina pectoris take 1/2 tablet [...] Nasal Suspension (Flonase)Indications :Allergic rhinitis Administer 1 [place] into nostril in the morning. 48 mL 1 3 Active BD Pen Needle Short U/F 31G X 8 MM (Insulin Pen Needle)Indications:T ype 2 diabetes mellitus with hemoglobin A1c goal of less than 8.0% ([facility]) USE 5 TIMES DAILY WITH INSULIN [...] goal of less than 8.0% ([facility]),Diabetes mellitus, type II, insulin dependent ([facility]) USE TEST STRIPS TO TEST BLOOD [...] goal of less than 8.0% ([facility]) Use to test 3 times a day. E11.9 300 Strip 2 4 Active Albuterol Sulfate HFA 108 (90 Base) MCG/ACT Inhalation Aerosol SolutionIndications: Mild persistent asthma with acute exacerbation,COPD, group B, by GOLD 2017 classification ([facility]) inhale 1 TO 2 puffs by [...] evening. Or take as instructed by the [facility]. Due for INR. 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 30 Tablet 1 4 Active Hospital, Clinic, or Other Facility Administered Medication Ordered Dose Route Frequency Start Date End Date Status Albuterol Sulfate (Proventil) (2.5 MG/3ML) 0.083% inhalation solution 2.5 mgIndications:COPD exacerbation (HCC) 2.5 mg NEBULIZER ONCE PRN 10/16/2023 10/15/2024 Active documented as of this encounter (statuses as of 10/17/2023) Active Problems Problem Noted Date Diagnosed Date Moderate episode of recurrent major depressive d isorder 10/16/2023 Reactive arthritis of multiple sites 07/05/2023 Food insecurity 07/03/2023 Overview: Per [facility] Protocol Diabetic peripheral neuropathy 09/13/2022 snf current use of systemic steroids 06/20 History [...] situ 11/23/2018 Chronic atrial fibrillation 08/24/2018 Overview: [facility] Dr Armenta Diabetes mellitus, type [...] CORONARY ATHEROSCLEROSIS OF UNSPECIFIED TYPE OF VESSEL, [place] OR GRAFT Peptic ulcer Asthma, mild persistent HLA B27 (HLA B27 positive) documented as of this encounter (statuses as of 10/17/2023) Resolved Problems Problem Noted Date Diagnosed Date [...] as of this encounter (statuses as of 10/17/2023) Immunizations Name Administration Dates Next Due COVID-19 mRNA, LNP-s, No Pre serve, 2-Dose Series (Moderna) 10/23/2020,06/23/2020 H1N1 2008 Influenza, IM 04/06/2009 Pneumococcal Conjugate Vacci ne, 20-valent ([id number]) 11/19/2021 Pneumococcal Polysaccharide PPV23 (Pneumovax) 02/09/2007 Seasonal [...] AM EDT Anticoagulation Centralized Clinical [facility] Services, [facility] [address] [place] [address] [place] [address] [place] [address] 10/25/2023 3:00 PM EDT Office Visit Family Medicine [address] [place] [phone] Brigitte Byrd MD [address] [place] [address] [place] [address] 11/16/2023 1:00 PM EDT Telemedicine Pharmacy, [facility] [address] [place] [address] [facility] [address] [place] [address] 11/22/2023 2:30 PM EDT PulmDiagnostic Pulmonary Function Lab, [facility] [address] [place] [address] [place] [place] [address] 11/28/2023 1:00 PM EDT Office Visit Pulmonary Medicine, [facility] [address] [place] [address] Miguel Munoz MD [address] [place] [address] 12/22/2023 3:20 PM EDT Office Visit Rheumatology [address] [place] [phone] Demetrius Aj MD [address] [place] [address] 01/22/2024 2:00 PM EDT Office Visit Family Medicine [address] [place] [phone] Brigitte Byrd MD [address] [place] [address] [place] [address] Pending Results Name Type Priority Associated Diagnoses Date /Time ALBUMIN / CREATININE RATIO, URINE Lab Routine Diabetic peripheral neuropathy (HCC) 10/17/2023 11:09 AM EDT HEMOGLOBIN A1C Lab Routine Type 2 diabetes mellitus with hemoglobin A1c goal of less than 8.0% ([facility]) 10/17/2023 11:09 AM EDT LIPID PANEL WITH DIRECT LDL IF TG IS HIGH Lab Routine Type 2 diabetes mellitus with hemoglobin A1c goal of less than 8.0% ([facility]) 10/17/2023 11:09 AM EDT COMPREHENSIVE METABOLIC PANEL Lab Routine Type 2 diabetes mellitus with hemoglobin A1c goal of less than 8.0% ([facility]) HTN, goal below 140/90 10/17/2023 11:09 AM EDT CORTISOL Lab Routine Reactive arthritis of multiple sites ([facility]) 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 10/17/2023 11:09 AM EDT PSA Lab Routine Screening for prostate cancer 10/17/2023 11:09 AM EDT PT INR Lab Routine Chronic atrial fibrillation (HCC) 10/17/2023 11:13 AM EDT Scheduled Procedures Name Priority Associated Diagnoses Date/Ti me COLONOSCOPY FLEXIBLE PROXIMAL DIAGNOSTIC Recall History of colon polyps Health Maintenance Due Date Last Done Comments DISCUSS TOBACCO CESSATION (REFER TO SMARTSET #7423) 1955 Zoster Vaccines (1 of 2) 02/22/1975 Cologuard 02/22/2001 Fecal Occult Blood Test 02/22/2001 Sigmoidoscopy 02/22/2001 Depression Monitoring 06/11/2020 06/12/2019 COVID-19 Vaccine (3 - Moderna risk series) 11/20/2020 10/23/2020, 06/23/2020 Diabetic Eye Exam 09/14/2023 09/13/2022, , 06/22/2017, Additional history exists Diabetic Foot Exam 09/14/2023 09/13/2022, 0 05/27/2021, 06/12/2019, Additional history exists HbA1c 09/14/2023 03/15/2023, 08/26, 05/27/2021, Additional history exists Albumin/Creatinine Ratio 09/15/2023 [...] as of this encounter Visit Diagnoses Diagnosis Diabetic peripheral neuropathy (HCC) Type II or unspecified type diabetes mellitus with neurological manifestations, not stated as uncontrolled Type 2 diabetes mellitus with hemoglobin A1c goal of less than 8.0% (HCC) HTN, goal below 140/90 Unspecified essential hypertension 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
--- OUTSIDE RECORDS SUMMARY | 2024-01-09 00:10 | External Medical Summary | Summary of Care ---
Author Name Unknown Organization [facility] Address [address] [place] [facility] [place] [place] [address] Phone [phone] Care Team Providers Care Furniture Delivery Driver Name Role Phone Brigitte Byrd MD Primary Care Prov ider Encounter Details Date Type Department Care Team (Late st Contact Info) Description 10/16/2023 Telephone Family Medicine [address] [phone] Brigitte Byrd MD [address] [place] [phone] Allergies Active Allergy Reactions Criticality Noted Date [...] (3) MG/3ML Inhalation Solution (Duoneb)Indications: COPD exacerbation ([facility]) INHALE 1 VIAL VIA NEBILIZER TWICE A DAY AND EVERY 6 HOURS IN BETWEEN NEEDED 270 mL 5 1 Active Accu-Chek Guide w/Device KitIndications:Type 2 diabetes mellitus with hemoglobin A1c goal of less than 8.0% ([facility]) Use as directed . Test 3 times daily. Pt is on insulin Dx E11.9 1 Kit 2 Active Pylera 140-125-125 MG Oral Capsule (Bis Yzulyw-Vdzsbuyo-Zuoh acyc) 3 capsules 4 times/day x 10 days 120 Capsule 2 Active NovoLOG FlexPen 100 UNIT/ML Subcutaneous Solution Pen-injector (insulin aspart)Indications:T ype 2 diabetes mellitus with hemoglobin A1c goal of less than 8.0% ([facility]) inject 20 units WITH BREAKFAST, 10 UNITS WITH MIDDAY SNACK, 10 UNITS WITH SUPPER (CF:1:40 OVER 160) 45 mL 3 3 Active Atenolol 25 MG Oral Tablet (Tenormin)Indication s:Atherosclerosis of [place] coronary artery of [place] heart without angina pectoris take 1/2 tablet by mouth every evening if needed for PALPITATIONS 45 Tablet 3 3 Active Zoster Vac Recomb Adjuvanted 50 MCG/0.5ML Intramuscular Suspension Reconstituted (Shingrix) Inject 0.5 mL into a large muscle now and repeat dose in 60 to 180 days 1 Each 1 3 Active Fluticasone Propionate 50 MCG/ACT Nasal Suspension (Flonase)Indications :Allergic rhinitis Administer 1 [place] into nostril in the morning. 48 mL [...] B, by GOLD 2017 classification ([facility]) inhale 1 TO 2 puffs by [...] every morning 90 Tablet 1 4 Active predniSONE 10 MG Oral Tablet (Deltasone)Indicatio ns:COPD exacerbation (HCC) Take 4 tabs for 2 days, 3 tabs for 2 days, 2 tabs for 2 days 1 tab for 2 days 20 Tablet 4 Active Cefuroxime Axetil 500 MG Oral Tablet (Ceftin)Indications: COPD exacerbation (HCC),Acute non-recurrent maxillary sinusitis Take 1 Tablet by mouth in the morning and 1 Tablet before bedtime. 20 Tablet 4 Active Hydroxychloroquine Sulfate 200 MG Oral [...] Solostar 100 UNIT/ML Subcutaneous Solution Pen-injector (Basaglar KwbetoPen)Indications: Type 2 diabetes mellitus with hemoglobin A1c goal of less than 8.0% ([facility]),Diabetes mellitus, type II, insulin dependent ([facility]) inject 20 units subcutaneously every morning and inject 10 units every NIGHT 30 mL 4 Active Trelegy Ellipta 100-62.5-25 MCG/ACT Aerosol Powder Breath Activated (Fluticasone-Umeclid inium-Vilanterol) inhale 1 puff by mouth and INTO THE LUNGS every morning 60 Blister Dosing Unit 5 4 Active documented as of this encounter (statuses as of 10/16/2023) Active Problems Problem Noted Date Diagnosed Date Reactive arthritis of multiple sites 07/05/2023 Food insecurity 07/03/2023 Overview: Per [facility] Protocol Diabetic peripheral neuropathy 09/13/2022 [place] [...] situ 11/23/2018 Chronic atrial fibrillation 08/24/2018 Overview: [facility] Dr Armenta Diabetes mellitus, [...] CORONARY ATHEROSCLEROSIS OF UNSPECIFIED TYPE OF VESSEL, [place] OR GRAFT Peptic ulcer Asthma, mild persistent [...] update of inactive term Mixed dyslipidemia 10/24/2008 12/08/200 9 Overview: Per Lipid Taxonomy. Type 2 [...] IM 04/06/2009 Pneumococcal Conjugate Vacci ne, 20-valent ([id number]) 11/19/2021 Pneumococcal Polysaccharide PPV23 (Pneumovax) 02/09/2007 Seasonal [...] encounter Miscellaneous Notes * Telephone Encounter - Skylar Barnhart OSA - 10/16/2023 8:49 AM EDT Appt scheduled, pt aware. * Telephone Encounter - Brigitte Byrd MD - 10/16/2023 8:34 AM EDT Pt requested Prednisone Taper refill for COPD. Please schedule ACUTE appointment instead (for today) documented in this encounter Plan of Treatment Upcoming Encounters Date Type Department Care Team (Late st Contact Info) Description 10/16/2023 4:00 PM EDT Office Visit [address] [phone] Brigitte Byrd MD [address] [place] [address] [place] [address] 10/23/2023 6:30 AM EDT Anticoagulation Centralized Clinical Pharmacy Services, [address] [place] [address] [place] [address] 10/25/2023 3:00 PM EDT Office Visit [address] [phone] Brigitte Byrd MD [address] [place] [address] [place] [address] 11/16/2023 1:00 PM EDT Telemedicine Pharmacy, [facility] [address] [facility] [place] [address] [facility] [address] [place] [address] Scheduled Procedures Name Priority Associated Diagnoses Date/Ti me COLONOSCOPY FLEXIBLE PROXIMAL DIAGNOSTIC Recall History of colon polyps Health Maintenance Due Date Last Done Comments DISCUSS TOBACCO CESSATION (REFER TO SMARTSET #3076) 1955 Zoster Vaccines (1 of 2) 02/22/1975 [...] 2023 02/02/2021, 02/02/2021, 01/14/2020, Additional history exists O2 ASSESSMENT COMPLETED IN PAST YEAR FOR COPD 03/15/2024 03/15/2023 GFR 07/09/2024 07/10/2023, 06/25, 05/24/2023, Additional history exists Colonoscopy 08/12/2026 08/12/2021, 09/24, [...] Directives occurred with: Not Discussed Care Teams Furniture Delivery Driver Relationship Specialty Start Date End Date Brigitte Byrd MD [address] [place] [address] [place] [address] PCP - General Family Medicine 11/23/18 documented as of this encounter
--- OUTSIDE RECORDS SUMMARY | 2024-01-09 00:10 | External Medical Summary | Summary of Care ---
Author Name Unknown Organization [facility] Address [address] [facility] [place] [address] Phone [phone] Care Team Providers Care Rhit Name Role Phone Brigitte Byrd MD Primary Care Prov ider Encounter Details Date Type Department Care Team (Late st Contact Info) Description 09/29/2023 Result Scan Unspecified Department Dorinda Spears, [facility] [address] [place] [address] <No scans attached> Allergies Active Allergy Reactions Criticality Noted Date Comments Diclofenac Resin Rash Low 11/15/1999 Voltaren Atorvastatin Calcium Muscle pain 11/23/2018 Rosuvastatin Muscle pain 11/23/2018 documented as of this encounter (statuses as of 10/02/2023) Medications Medication Sig Dispensed Refills Start Date [...] Active Pylera 140-125-125 MG Oral Capsule (Bis Iwrmjg-Ulicypqp-Dwrg acyc) 3 capsules 4 times/day x 10 [...] 25 MG Oral Tablet (Tenormin)Indication s:Atherosclerosis of [place] coronary artery of [place] heart without angina pectoris take 1/2 tablet by mouth every evening if needed for PALPITATIONS 45 Tablet 3 3 Active Zoster Vac Recomb Adjuvanted 50 MCG/0.5ML Intramuscular Suspension Reconstituted (Shingrix) Inject 0.5 mL into a large muscle now and repeat dose in 60 to 180 days 1 Each 1 3 Active Fluticasone Propionate 50 MCG/ACT Nasal Suspension (Flonase)Indications :Allergic rhinitis Administer 1 [place] into nostril in the morning. 48 mL [...] every morning 90 Tablet 3 4 Active Trelegy Ellipta 100-62.5-25 MCG/ACT Aerosol Powder Breath Activated (Fluticasone-Umeclid inium-Vilanterol) inhale 1 puff by mouth and INTO THE LUNGS every morning 60 Blister Dosing Unit 5 4 Active Montelukast Sodium 10 MG Oral [...] DILLON),Diabetes mellitus, type II, insulin dependent (HCC) USE [...] evening. Or take as instructed by the [facility]. Due for INR. 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 06/20 History [...] situ 11/23/2018 Chronic atrial fibrillation 08/24/2018 Overview: [facility] Dr Armenta Diabetes mellitus, type [...] CORONARY ATHEROSCLEROSIS OF UNSPECIFIED TYPE OF VESSEL, [place] OR GRAFT Peptic ulcer Asthma, mild persistent HLA B27 (HLA B27 positive) documented as of this encounter (statuses as of 10/02/2023) Resolved Problems Problem Noted Date Diagnosed Date [...] as of this encounter (statuses as of 10/02/2023) Immunizations Name Administration Dates Next Due COVID-19 mRNA, LNP-s, No Pre serve, 2-Dose Series (Moderna) 10/23/2020,06/23/2020 H1N1 2009 Influenza, IM 04/06/2009 Pneumococcal Conjugate Vacci ne, 20-valent ([id number]) 11/19/2021 Pneumococcal Polysaccharide PPV23 (Pneumovax) 02/09/2007 Seasonal [...] Care Team (Late st Contact Info) Description 10/02/2023 6:15 PM EDT Anticoagulation Centralized Clinical Pharmacy Services, [place] Doss [address] [place] [address] [place] [address] [place] [address] 10/25/2023 3:00 PM EDT Office Visit Family Medicine [address] [place] [phone] Brigitte Byrd MD [address] [place] [address] [place] [address] 11/16/2023 1:00 PM EDT Telemedicine Pharmacy, [facility] [address] [facility] [place] [address] [facility] [address] [facility] [place] [address] Scheduled Procedures Name Priority Associated Diagnoses Date/Ti me COLONOSCOPY FLEXIBLE PROXIMAL DIAGNOSTIC Recall History of colon polyps Health Maintenance Due Date Last Done Comments DISCUSS TOBACCO CESSATION (REFER TO SMARTSET #1584) 1955 Zoster Vaccines (1 of 2) 02/22/1975 [...] 09/15/2023 023, 05/27/2021, 05/28/2020, Additional history exists Influenza Vaccine (FLU shot) [...] Date/Time Associated Diagnosis Comments OUTSIDE LAB RESULTS 09/29/2023 documented in this encounter Results * OUTSIDE LAB RESULTS (09/29/2023) 09/29/2023 Dorinda Spears [facility] documented in this encounter Advance Directives [...] Directives occurred with: Not Discussed Care Teams Rhit Relationship Specialty Start Date End Date Brigitte Byrd MD [address] [place] [address] [place] [address] PCP - General Family Medicine 11/23/18 documented as of this encounter
--- OUTSIDE RECORDS SUMMARY | 2024-01-09 00:10 | External Medical Summary | Summary of Care ---
Author Name Unknown Organization [facility] Address [address] [facility] [place] [address] Phone [phone] Care Team Providers Care Fire Range Technician Name Role Phone Brigitte Cm MD Primary Care Prov ider Reason for Visit * Reason Comments eRx-Medication Refill Encounter Details Date Type Department Care Team (Late st Contact Info) Description 10/09/2023 Refill Family Medicine [address] [phone] Brigitte Cm MD [address] [place], [place] [address] [id number] Allergies Active Allergy Reactions Criticality Noted Date Comments Diclofenac Resin Rash Low 11/15/1999 Voltaren Atorvastatin Calcium Muscle pain 11/23/2018 Rosuvastatin Muscle pain 11/23/2018 documented as of this encounter (statuses as of 10/11/2023) Medications Medication Sig Dispensed Refills Start Date [...] hemoglobin A1c goal of less than 8.0% ([facility]) Use as directed . Test 3 times daily. Pt is on insulin Dx E11.9 1 Kit 04/30/19 22 Active Pylera 140-125-125 MG Oral Capsule (Bis Beckhm-Zjhxmpil-Zht racyc) 3 capsules 4 times/day x 10 days 120 Capsule 05/05/19 22 Active NovoLOG FlexPen 100 UNIT/ML Subcutaneous Solution Pen-injector (insulin aspart)Indications: Type 2 diabetes mellitus with hemoglobin A1c goal of less than 8.0% (HCC) inject 20 units WITH BREAKFAST, 10 UNITS WITH MIDDAY SNACK, 10 UNITS WITH SUPPER (CF:1:40 OVER 160) 45 mL 3 05/24/19 23 Active Atenolol 25 MG Oral Tablet (Tenormin)Indicatio ns:Atherosclerosis of [place] coronary artery of [place] heart without angina pectoris take 1/2 tablet [...] Nasal Suspension (Flonase)Indication s:Allergic rhinitis Administer 1 [place] into nostril in the morning. 48 mL 1 12/04/19 23 Active BD Pen Needle Short U/F 31G X 8 MM (Insulin Pen Needle)Indications: Type 2 diabetes mellitus with hemoglobin A1c goal of less than 8.0% ([facility]) USE 5 TIMES DAILY WITH [...] exacerbation,COPD, group B, by GOLD 2017 classification ([facility]) inhale 1 TO 2 puffs [...] morning 90 Tablet 1 08/29/19 24 Active predniSONE 10 MG Oral Tablet (Deltasone)Indicati ons:COPD exacerbation (HCC) Take 4 tabs for 2 days, 3 tabs for 2 days, 2 tabs for 2 days 1 tab for 2 days 20 Tablet 08/29/19 24 Active Cefuroxime Axetil 500 MG Oral Tablet (Ceftin)Indications :COPD exacerbation (HCC),Acute non-recurrent maxillary sinusitis Take 1 Tablet by mouth in the morning and 1 Tablet before bedtime. 20 Tablet 08/29/19 24 Active Hydroxychloroquine Sulfate 200 MG Oral Tablet (Plaquenil)Indicati ons:HLA B27 (HLA B27 positive) Take 2 Tablets by mouth at bedtime. 180 Tablet 08/30/19 24 Active Warfarin Sodium 5 MG Oral Tablet (Coumadin)Indicatio ns:Chronic atrial fibrillation (HCC) Take 1-2 Tablets by mouth every evening. Or take as instructed by the [facility]. Due for INR. 180 [...] hemoglobin A1c goal of less than 8.0% ([facility]),Diabetes mellitus, type II, insulin dependent ([facility]) inject 20 units subcutaneously every morning and inject 10 units every NIGHT 30 mL 09/29/19 24 Active Trelegy Ellipta 100-62.5-25 MCG/ACT Aerosol Powder Breath Activated (Fluticasone-Umecli dinium-Vilanterol) inhale 1 puff by mouth and INTO THE LUNGS every morning 60 Blister Dosing Unit 5 10/11/19 24 Active Trelegy Ellipta 100-62.5-25 MCG/ACT Aerosol Powder Breath Activated (Fluticasone-Umecli dinium-Vilanterol) inhale 1 puff by mouth and INTO THE LUNGS every morning 60 Blister Dosing Unit 5 04/15/19 24 024 Discontinued documented as of this encounter (statuses as of 10/11/2023) Active Problems Problem Noted Date Diagnosed Date Reactive arthritis of multiple sites 07/05/2023 Food insecurity 07/03/2023 Overview: Per [facility] Protocol Diabetic peripheral neuropathy 09/13/2022 jail current use of systemic steroids 06/20 History [...] situ 11/23/2018 Chronic atrial fibrillation 08/24/2018 Overview: [facility] Dr Armenta Diabetes mellitus, type [...] CORONARY ATHEROSCLEROSIS OF UNSPECIFIED TYPE OF VESSEL, [place] OR GRAFT Peptic ulcer Asthma, mild persistent HLA B27 (HLA B27 positive) documented as of this encounter (statuses as of 10/11/2023) Resolved Problems Problem Noted Date Diagnosed Date [...] as of this encounter (statuses as of 10/11/2023) Immunizations Name Administration Dates Next Due COVID-19 mRNA, LNP-s, No Pre serve, 2-Dose Series (Moderna) 10/23/2020,06/23/2020 H1N1 2009 Influenza, IM 04/06/2009 Pneumococcal Conjugate Vacci ne, 20-valent ([id number]) 11/19/2021 Pneumococcal Polysaccharide PPV23 (Pneumovax) 02/09/2007 Seasonal [...] encounter Miscellaneous Notes * Telephone Encounter - Bianca Bullard [facility] - 10/11/2023 2:28 PM EDTSigned Prescriptions: Disp Refills Trelegy Ellipta 100-62.5-25 MCG/ACT Aeroso*60 Bli*5 Sig: inhale 1 puff by mouth and INTO THE LUNGS every morningAuthorizing Provider: BRIGITTE CM User: BIANCA BULLARD documented in this encounter Plan of Treatment Upcoming Encounters Date Type Department Care Team (Late st Contact Info) Description 10/16/2023 6:30 AM EDT Anticoagulation [facility], [facility] D[facility] [address] [place] [address] [place] [address] [place] [address] 10/25/2023 3:00 PM EDT Office Visit Family Medicine [address] [place] [phone] Brigitte Cm MD [address] [place] [address] [place] [address] 11/16/2023 1:00 PM EDT Telemedicine Pharmacy, [facility] [address] [facility] [place] [address] [facility] [address] [facility] [place] [address] Scheduled Procedures Name Priority Associated Diagnoses Date/Ti me COLONOSCOPY FLEXIBLE PROXIMAL DIAGNOSTIC Recall History of colon polyps Health Maintenance Due Date Last Done Comments DISCUSS TOBACCO CESSATION (REFER TO SMARTSET #7428) 1955 Zoster Vaccines (1 of 2) 02/22/1975 Cologuard 02/22/2001 Fecal Occult Blood Test 02/22/2001 Sigmoidoscopy 02/22/2001 Depression Monitoring 06/11/2020 06/12/2019 COVID-19 Vaccine (3 - Moderna risk series) 11/20/2020 10/23/2020, 06/23/2020 Diabetic Eye Exam 09/14/2023 09/13/2022, , 06/22/2017, Additional history exists Diabetic Foot Exam 09/14/2023 09/13/2022, 0 05/27/2021, 06/12/2019, Additional history exists HbA1c 09/14/2023 03/15/2023, 062 03/2022, 05/27/2021, Additional history exists Albumin/Creatinine Ratio 09/15/2023 [...] Directives occurred with: Not Discussed Care Teams Fire Range Technician Relationship Specialty Start Date End Date Brigitte Cm MD [address] [place] [address] [place] [phone] PCP - General Family Medicine 11/23/18 documented as of this encounter
--- OUTSIDE RECORDS SUMMARY | 2024-01-09 00:10 | External Medical Summary | Summary of Care ---
Author Name Unknown Organization [facility] Address [address] [facility] [place] [address] Phone [phone] Care Team Providers Care Utility Sales Representative Name Role Phone Brigitte Byrd MD Primary Care Prov ider Reason for Visit * Reason Comments Dosage Adjustment Via Phone (anticoag Cl inic) Encounter Details Date Type Department Care Team (Late st Contact Info) Description 10/02/2023 6:15 PM EDT Anticoagulation [facility], [facility] [address] [place] [address] [place] [address] [place] [address] Chronic atrial fibrillation (HCC)* Allergies Active Allergy [...] hemoglobin A1c goal of less than 8.0% ([facility]) Use as directed . Test 3 times daily. Pt is on insulin Dx E11.9 1 Kit 2 Active Pylera 140-125-125 MG Oral Capsule (Bis Zeqcld-Phajmvdg-Saro acyc) 3 capsules 4 times/day x 10 days 120 Capsule 2 Active NovoLOG FlexPen 100 UNIT/ML Subcutaneous Solution Pen-injector (insulin aspart)Indications:T ype 2 diabetes mellitus with hemoglobin A1c goal of less than 8.0% ([facility]) inject 20 units WITH BREAKFAST, 10 UNITS WITH MIDDAY SNACK, 10 UNITS WITH SUPPER (CF:1:40 OVER 160) 45 mL 3 3 Active Atenolol 25 MG Oral Tablet (Tenormin)Indication s:Atherosclerosis of [place] coronary artery of [place] heart without angina pectoris take 1/2 tablet by mouth every evening if needed for PALPITATIONS 45 Tablet 3 3 Active Zoster Vac Recomb Adjuvanted 50 MCG/0.5ML Intramuscular Suspension Reconstituted (Shingrix) Inject 0.5 mL into a large muscle now and repeat dose in 60 to 180 days 1 Each 1 3 Active Fluticasone Propionate 50 MCG/ACT Nasal Suspension (Flonase)Indications :Allergic rhinitis Administer 1 [place] into nostril in the morning. 48 mL 1 3 Active BD Pen Needle Short U/F 31G X 8 MM (Insulin Pen Needle)Indications:T ype 2 diabetes mellitus with hemoglobin A1c goal of less than 8.0% ([facility]) USE 5 TIMES DAILY WITH INSULIN DX [...] hemoglobin A1c goal of less than 8.0% ([facility]),Diabetes mellitus, type II, insulin dependent ([facility]) USE TEST STRIPS TO TEST BLOOD SUGARS THREE TIMES DAILY 300 Strip 2 4 Active DULoxetine HCl 30 MG Oral Capsule Delayed Release Particles (Cymbalta)Indication s:Moderate episode of recurrent major depressive disorder ([facility]) take 1 capsule by mouth every morning 90 Capsule 1 4 Active FreeStyle Test In Vitro Strip (Glucose Blood)Indications:Ty pe 2 diabetes mellitus with hemoglobin A1c goal of less than 8.0% ([facility]) Use to test 3 times a day. E11.9 300 Strip 2 4 Active Albuterol Sulfate HFA 108 (90 Base) MCG/ACT Inhalation Aerosol SolutionIndications: Mild persistent asthma with acute exacerbation,COPD, group B, by GOLD 2017 classification ([facility]) inhale 1 TO 2 puffs by mouth and INTO THE LUNGS every 2 hours if needed 8.5 g 5 4 Active LORazepam 0.5 MG Oral Tablet (Ativan)Indications: PTSD (post-traumatic stress disorder) take 1 tablet by mouth twice a day if needed for anxiety 60 Tablet 2 4 Active traZODone HCl 50 MG Oral Tablet (Desyrel)Indications :Moderate episode of recurrent major depressive disorder ([facility]) take 1 tablet by mouth BEFORE BEDTIME [...] Glargine Solostar 100 UNIT/ML Subcutaneous Solution Pen-injector (Meenakshiaglar Harish)Indications: Type 2 diabetes mellitus with hemoglobin A1c goal of less than 8.0% ([facility]),Diabetes mellitus, type II, insulin dependent ([facility]) inject 20 units subcutaneously every morning and inject 10 units every NIGHT 30 mL 4 Active documented as of this encounter (statuses as of 10/02/2023) Active Problems Problem Noted Date Diagnosed Date Reactive arthritis of multiple sites 07/05/2023 Food insecurity 07/03/2023 Overview: Per [facility] Protocol Diabetic peripheral neuropathy 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 (Self) [phone] (M) Subjective Patient Findings Negatives: Signs/symptoms of [...] noted by Pharmacist: Yes Kaya Ulloa CPhT 10/02/2023, 3:52 PM * Dorinda Spears RPh - 10/02/2023 2:41 PM EDT Coumadin Clinic (region specific) Objective Current Warfarin Dose As of 10/02/2023 Warfarin maintenance plan: 5 mg (5 mg x 1) every Mon; 10 mg (5 mg x 2) all other days INR Result As of 10/02/2023 INR goal: 2.0-3.0 INR used for dosin.18 (09/29/2023) Assessment & Plan Warfarin Plan As of 10/02/2023 Full warfarin instructions: 10/01: 10 mg; Otherwise 5 mg every Mon; 10 mg all other days Next INR check: 10/06/2023 Repeat PT/INR in 1 week(s) Weekly dose: not changed Additional Dosing Information: Description [facility] to contact patient with dose instructions as noted. Dorinda Spears RPh 10/02/2023, 2:45 PM documented in this encounter Plan of Treatment Upcoming Encounters Date Type Department Care Team ([facility] st Contact Info) Description 10/09/2023 6:30 AM EDT Anticoagulation [facility], [facility] [address] [place] [address] [place] [address] [place] [address] 10/25/2023 3:00 PM EDT Office Visit Family [address] [place] [phone] Brigitte Byrd MD [address] [place] [address] [place] [address] 11/16/2023 1:00 PM EDT Telemedicine Pharmacy, [facility] [address] [place] [address] [facility] [address] [place] [address] Scheduled Procedures Name Priority Associated Diagnoses Date/Ti [...] Date/Time Associated Diagnosis Comments OUTSIDE LAB-PT/INR Routine 09/29/2023 documented in this encounter Results * OUTSIDE LAB-PT/INR (09/29/2023) INR-OUTSIDE LAB 1.18 [facility] 09/29/2023 History Per Patient [facility] [address] [address] documented in this encounter Visit Diagnoses Diagnosis [...] Directives occurred with: Not Discussed Care Teams Utility Sales Representative Relationship Specialty Start Date End Date Brigitte Byrd MD [address] [place] [address] [place] [phone] PCP - General Family Medicine 11/23/18 documented as of this encounter
--- OUTSIDE RECORDS SUMMARY | 2024-01-09 00:10 | External Medical Summary | Summary of Care ---
Author Name Unknown Organization [facility] Address [address] [facility] [place] [address] Phone [phone] Care Team Providers Care Ict Development Manager Name Role Phone Brigitte Byrd MD Primary Care Prov ider Reason for Visit * Reason Comments Dosage Adjustment Via Phone (anticoag Cl inic) Encounter Details Date Type Department Care Team (Late st Contact Info) Description 09/29/2023 6:15 PM EDT Anticoagulation [facility], [facility] [address] [place] [address] [place] [phone] [place] [address] Chronic atrial fibrillation (HCC)* Allergies Active Allergy Reactions Criticality Noted Date Comments Diclofenac Resin Rash Low 11/15/1999 Voltaren Atorvastatin Calcium Muscle pain 11/23/2018 Rosuvastatin Muscle pain 11/23/2018 documented as of this encounter (statuses as of 09/29/2023) Medications Medication Sig Dispensed Refills Start Date [...] goal of less than 8.0% ([facility]) Use as directed . Test 3 times daily. Pt is on insulin Dx E11.9 1 Kit 2 Active Pylera 140-125-125 MG Oral Capsule (Bis Tcgguh-Cnnazerm-Jztr acyc) 3 capsules 4 times/day x 10 days 120 Capsule 2 Active NovoLOG FlexPen 100 UNIT/ML Subcutaneous Solution Pen-injector (insulin aspart)Indications:T ype 2 diabetes mellitus with hemoglobin A1c goal of less than 8.0% ([facility]) inject 20 units WITH BREAKFAST, 10 UNITS WITH MIDDAY SNACK, 10 UNITS WITH SUPPER (CF:1:40 OVER 160) 45 mL 3 3 Active Atenolol 25 MG Oral Tablet (Tenormin)Indication s:Atherosclerosis of [place] coronary artery of [place] heart without angina pectoris take 1/2 tablet by mouth every evening if needed for PALPITATIONS 45 Tablet 3 3 Active Zoster Vac Recomb Adjuvanted 50 MCG/0.5ML Intramuscular Suspension Reconstituted (Shingrix) Inject 0.5 mL into a large muscle now and repeat dose in 60 to 180 days 1 Each 1 3 Active Insulin Glargine Solostar 100 UNIT/ML Subcutaneous Solution Pen-injector (Basaglar KwikPen)Indications: Type 2 diabetes mellitus with hemoglobin A1c goal of less than 8.0% ([facility]),Diabetes mellitus, type II, insulin dependent ([facility]) inject 20 units subcutaneously every morning and inject 10 units every NIGHT 30 mL 3 3 Active Fluticasone Propionate 50 MCG/ACT Nasal Suspension (Flonase)Indications :Allergic rhinitis Administer 1 [place] into nostril in the morning. 48 mL 1 3 Active BD Pen Needle Short U/F 31G X 8 MM (Insulin Pen Needle)Indications:T ype 2 diabetes mellitus with hemoglobin A1c goal of less than 8.0% ([facility]) USE 5 TIMES DAILY WITH INSULIN DX [...] goal of less than 8.0% ([facility]),Diabetes mellitus, type II, insulin dependent ([facility]) USE TEST STRIPS TO TEST BLOOD SUGARS [...] goal of less than 8.0% ([facility]) Use to test 3 times a day. E11.9 300 Strip 2 4 Active Albuterol Sulfate HFA 108 (90 Base) MCG/ACT Inhalation Aerosol SolutionIndications: Mild persistent asthma with acute exacerbation,COPD, group B, by GOLD 2017 classification ([facility]) inhale 1 TO 2 puffs by mouth and INTO THE LUNGS every 2 hours if needed 8.5 g 5 4 Active LORazepam 0.5 MG Oral Tablet (Ativan)Indications: PTSD (post-traumatic stress disorder) take 1 tablet by mouth twice a day if needed for anxiety 60 Tablet 2 4 Active traZODone HCl 50 MG Oral Tablet (Desyrel)Indications :Moderate episode of recurrent major depressive disorder ([facility]) take 1 tablet by mouth BEFORE BEDTIME [...] tablets per day. 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 06/20 History [...] situ 11/23/2018 Chronic atrial fibrillation 08/24/2018 Overview: [facility] Dr Armenta Diabetes mellitus, type [...] CORONARY ATHEROSCLEROSIS OF UNSPECIFIED TYPE OF VESSEL, [place] OR GRAFT Peptic ulcer Asthma, mild persistent HLA B27 (HLA B27 positive) documented as of this encounter (statuses as of 09/29/2023) Resolved Problems Problem Noted Date Diagnosed Date [...] as of this encounter (statuses as of 09/29/2023) Immunizations Name Administration Dates Next Due COVID-19 mRNA, LNP-s, No Pre serve, 2-Dose Series (Moderna) 10/23/2020,06/23/2020 H1N1 2008 Influenza, IM 04/06/2009 Pneumococcal Conjugate Vacci ne, 20-valent ([id number]) 11/19/2021 Pneumococcal Polysaccharide PPV23 (Pneumovax) 02/09/2007 Seasonal [...] as of this encounter Progress Notes * Gula, Dorinda L, RPh - 09/29/2023 3:01 PM EDT Noted. Pt was short check due to elevated INR. Pt has weekly dose. Will follow up for result. Dorinda Spears Rph, Pharm.D. Clinical Pharmacist Centralized Clinical Pharmacy Services ([facility]) [phone] 09/29/2023,3:01 PM * Courtney Paulino senior linux unix engineer - 09/29/2023 2:44 PM EDT Pt has not gone to the lab. LMOM x 2 for him to return our call. Please advise, he is a 5 day check. Thank you, Courtney Paulino Remote Computer Terminal Operator [facility] Services ([facility]) [phone] 09/29/2023,2:44 PM * Courtney Paulino senior linux unix engineer - 09/29/2023 1:40 PM EDT Called PH lab, pt has not been in since 09/21. LMOM reminding him that he is due to have his INR checked today. Will continue to f/u. Thank you, Courtney Paulino Remote Computer Terminal Operator [facility] ([facility]) [phone] 09/29/2023,1:41 PM documented in this encounter Plan of Treatment Upcoming Encounters Date Type Department Care Team (Late st Contact Info) Description 10/02/2023 6:15 PM EDT Anticoagulation [facility] Clinical Pharmacy Services, [facility] [address] [place] [address] [place] [address] [facility], [address] [place] [address] 10/25/2023 3:00 PM EDT Office Visit Family Medicine [address] [place] [phone] Brigitte Byrd MD [address] [place] [address] [place] [address] 11/16/2023 1:00 PM EDT Telemedicine Pharmacy, [facility] [address] [facility] [place] [address] [facility] [address] [facility] [place] [address] Scheduled Procedures Name Priority Associated Diagnoses Date/Ti me COLONOSCOPY FLEXIBLE PROXIMAL DIAGNOSTIC Recall History of colon polyps Health Maintenance Due Date Last Done Comments DISCUSS TOBACCO CESSATION (REFER TO SMARTSET #2393) 1955 Zoster Vaccines (1 of 2) 02/22/1975 [...] Directives occurred with: Not Discussed Care Teams Ict Development Manager Relationship Specialty Start Date End Date Brigitte Byrd MD [address] [place] [address] [place] [address] PCP - General Family Medicine 11/23/18 documented as of this encounter
--- OUTSIDE RECORDS SUMMARY | 2024-01-09 00:10 | External Medical Summary | Summary of Care ---
Author Name Unknown Organization [facility] Address [address] [facility] [place] [address] Phone [phone] Care Team Providers Care Knot Bumper Name Role Phone Brigitte Cm MD Primary Care Prov ider Reason for Visit * Reason Comments eRx-Medication Refill Encounter Details Date Type Department Care Team (Late st Contact Info) Description 09/28/2023 Refill Family Medicine [address] [phone] Brigitte Cm MD [address] [place] [address] [place] [address] Type 2 diabetes mellitus with hemoglobin A1c goal of less than 8.0% ([facility]); Diabetes mellitus, type II, insulin dependent ([facility]) Allergies Active Allergy Reactions Criticality Noted Date [...] type 2 nursing care encounter ([facility]) Use as directed. 1 [address] 01/06/20 [...] Active Pylera 140-125-125 MG Oral Capsule (Bis Jazkzv-Fdttbimh-Ott racyc) 3 capsules 4 times/day x 10 [...] 25 MG Oral Tablet (Tenormin)Indicatio ns:Atherosclerosis of morongo coronary artery of morongo heart without angina pectoris take 1/2 tablet [...] Nasal Suspension (Flonase)Indication s:Allergic rhinitis Administer 1 Topping into nostril in the morning. 48 mL [...] morning 90 Tablet 3 04/04/19 24 Active Trelegy Ellipta 100-62.5-25 MCG/ACT Aerosol Powder Breath Activated (Fluticasone-Umecli dinium-Vilanterol) inhale 1 puff by mouth and INTO THE LUNGS every morning 60 Blister Dosing Unit 5 04/15/19 24 Active Montelukast Sodium 10 MG Oral [...] type II, insulin dependent ([facility]) USE TEST STRIPS TO TEST BLOOD SUGARS [...] of recurrent major depressive disorder ([facility]) take 1 tablet by mouth BEFORE BEDTIME [...] Or take as instructed by the [facility]. Due for INR. 180 Tablet [...] every NIGHT 30 mL 09/29/19 24 Active Insulin Glargine Solostar 100 UNIT/ML Subcutaneous Solution Pen-injector (Basaglar KwikPen)Indications :Type 2 diabetes mellitus with hemoglobin A1c goal of less than 8.0% (HCC),Diabetes mellitus, type II, insulin dependent (HCC) inject 20 units subcutaneously every morning and inject 10 units every NIGHT 30 mL 3 09/24/19 23 024 Discontinued documented as of this encounter (statuses as of 09/29/2023) Active Problems Problem Noted Date Diagnosed Date Reactive arthritis of multiple sites 07/05/2023 Food insecurity 07/03/2023 Overview: Per [facility] Protocol Diabetic peripheral neuropathy 09/13/2022 [facility] current use of systemic steroids 06/20 History [...] situ 11/23/2018 Chronic atrial fibrillation 08/24/2018 Overview: [facility] Dr Armenta Diabetes mellitus, type [...] CORONARY ATHEROSCLEROSIS OF UNSPECIFIED TYPE OF VESSEL, [place] OR GRAFT Peptic ulcer Asthma, mild persistent [...] IM 04/06/2009 Pneumococcal Conjugate Vacci ne, 20-valent ([id number]) 11/19/2021 Pneumococcal Polysaccharide PPV23 (Pneumovax) 02/09/2007 Seasonal [...] encounter Miscellaneous Notes * Telephone Encounter - Agustin Layton PHARM Tech - 09/29/2023 3:58 PM EDT Received message from [facility] regarding patient needing labs. Call Placed, Pt was agreeable to have labs drawn but would prefer to walk-in at their convenience. Thank you, Agustin Layton Coin Purse Framer [employer] 09/29/2023, 3:58 PM * Telephone Encounter - Thomas Arana [facility] - 09/29/2023 3:21 PM EDTSigned Prescriptions: Disp Refills Insulin Glargine Solostar 100 UNIT/ML Subc*30 mL 0 Sig: inject 20 units subcutaneously every morning and inject 10 units every NIGHT Authorizing Provider: BRIGITTE CM Ordering User: THOMAS ARANA * Telephone Encounter - Thomas Arana [facility] - 09/29/2023 3:18 PM EDT Provided 90 days supply with 0 refill(s). Per refill protocol patient should have Lipid panel and A1C on file within past year. Reviewed AMP report, Care Gaps/Health Maintenance, medications list, and for any routine labs typically ordered for this patient. Lab orders placed. Please contact patient to advise of labs ordered for blood draw. Recommend patient to fast if able for labs. Patient may still have water and regular medications. Advise to obtain labs before requesting the next refill. Thank you, Thomas Arana, PharmD Clinical Pharmacist [facility] ([facility]) [phone] 09/29/2023, 3:19 PM documented in this encounter Plan of Treatment Upcoming Encounters Date Type Department Care Team (Late st Contact Info) Description 09/29/2023 6:15 PM EDT Anticoagulation [facility], Corona Doss [address] [place] [address] [place] [address] [facility], [address] [place] [address] Chronic atrial fibrillation (HCC)* 10/02/2023 6:15 PM EDT Anticoagulation [facility] Clinical Pharmacy Services, Corona Doss [address] [place] [address] [place] [address] [facility], [address] [place] [address] 10/25/2023 3:00 PM EDT Office Visit Family [address] [place] [phone] Brigitte Cm MD [address] [place] [address] [place] [address] 11/16/2023 1:00 PM EDT Telemedicine Pharmacy, [facility] [address] [place] [address] [facility] [address] [place] [address] Scheduled Orders Name Type Priority Associated Diagnoses Orde r Schedule HEMOGLOBIN A1C Lab Routine Type 2 diabetes mellitus with hemoglobin A1c goal of less than 8.0% (HCC) Expected: 09/29/2023 (Approximate), Expires: 09/28/2024 LIPID PANEL WITH DIRECT LDL IF TG IS HIGH Lab Routine Type 2 diabetes mellitus with hemoglobin A1c goal of less than 8.0% (HCC) Expected: 09/29/2023 (Approximate), Expires: 09/28/2024 Scheduled Procedures Name Priority Associated Diagnoses Date/Ti me COLONOSCOPY FLEXIBLE PROXIMAL DIAGNOSTIC Recall History of colon polyps Health Maintenance Due Date Last Done Comments DISCUSS TOBACCO CESSATION (REFER TO SMARTSET #3295) 1955 Zoster Vaccines (1 of 2) 02/22/1975 Cologuard 02/22/2001 Fecal Occult Blood Test 02/22/2001 Sigmoidoscopy 02/22/2001 Depression Monitoring 06/11/2020 06/12/2019 COVID-19 Vaccine (3 - Moderna risk series) 11/20/2020 10/23/2020, 06/23/2020 Diabetic Eye Exam 09/14/2023 09/13/2022, , 06/22/2017, Additional history exists Diabetic Foot Exam 09/14/2023 09/13/2022, 0 05/27/2021, 06/12/2019, Additional history exists HbA1c 09/14/2023 03/15/2023, 06/03/2022, 05/27/2021, Additional history exists Albumin/Creatinine Ratio 09/15/2023 [...] mention of complication, not stated as uncontrolled Chronic atrial fibrillation (HCC)- Primary Atrial fibrillation [...] Directives occurred with: Not Discussed Care Teams Knot Bumper Relationship Specialty Start Date End Date Brigitte Cm MD [address] [place] [address] [place] [address] PCP - General Family Medicine 11/23/18 documented as of this encounter
--- OUTSIDE RECORDS SUMMARY | 2024-01-09 00:10 | External Medical Summary | Summary of Care ---
Author Name Unknown Organization [facility] Address [address] [facility] [place] [address] Phone [phone] Care Team Providers Care Director Clinical Applications Name Role Phone Brigitte Byrd MD Primary Care Prov ider Reason for Visit * Reason Onset Date Comments FYI 09/30/2023 PT INR & Coumadi n Encounter Details Date Type Department Care Team (Late st Contact Info) Description 09/30/2023 Telephone Family Medicine [address] [phone] Brigitte Byrd MD [address] [place] [address] [place] [id number] FYI (PT INR & Coumadin) Allergies Active Allergy Reactions Criticality Noted Date [...] Active Pylera 140-125-125 MG Oral Capsule (Bis Bzltzg-Oigbvscz-Rqyq acyc) 3 capsules 4 times/day x 10 days 120 Capsule 2 Active NovoLOG FlexPen 100 UNIT/ML Subcutaneous Solution Pen-injector (insulin aspart)Indications:T ype 2 diabetes mellitus with hemoglobin A1c goal of less than 8.0% ([facility]) inject 20 units WITH BREAKFAST, 10 UNITS WITH MIDDAY SNACK, 10 UNITS WITH SUPPER (CF:1:40 OVER 160) 45 mL 3 3 Active Atenolol 25 MG Oral Tablet (Tenormin)Indication s:Atherosclerosis of kaw coronary artery of kaw heart without angina pectoris take 1/2 tablet by mouth every evening if needed for PALPITATIONS 45 Tablet 3 3 Active Zoster Vac Recomb Adjuvanted 50 MCG/0.5ML Intramuscular Suspension Reconstituted (Shingrix) Inject 0.5 mL into a large muscle now and repeat dose in 60 to 180 days 1 Each 1 3 Active Fluticasone Propionate 50 MCG/ACT Nasal Suspension (Flonase)Indications :Allergic rhinitis Administer 1 Beaver into nostril in the morning. 48 mL 1 3 Active BD Pen Needle Short U/F 31G X 8 MM (Insulin Pen Needle)Indications:T ype 2 diabetes mellitus with hemoglobin A1c goal of less than 8.0% ([facility]) USE 5 TIMES DAILY WITH [...] insulin dependent ([facility]) USE TEST STRIPS TO TEST BLOOD SUGARS THREE TIMES DAILY 300 Strip 2 4 Active DULoxetine HCl 30 MG Oral Capsule Delayed Release Particles (Cymbalta)Indication s:Moderate episode of recurrent major depressive disorder ([facility]) take 1 capsule by mouth every morning 90 Capsule 1 4 Active FreeStyle Test In Vitro Strip (Glucose Blood)Indications:Ty pe 2 diabetes mellitus with hemoglobin A1c goal of less than 8.0% ([facility]) Use to test 3 times [...] :Moderate episode of recurrent major depressive disorder ([facility]) take 1 tablet by mouth [...] 500 MG Oral Tablet (Ceftin)Indications: COPD exacerbation ([facility]),Acute non-recurrent maxillary sinusitis Take 1 Tablet by [...] evening. Or take as instructed by the [facility]. Due for INR. 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 lab who confirmed patient completed labs on 09/28. INR - 1.18 She will also be faxing results today. Patient added to [facility] schedule for follow up. Thank you, Antonia Henderson, PharmD Clinical Pharmacist [facility] ([facility]) 10/02/2023 9:02 AM * Telephone Encounter - Vandana Delgado RN - 09/30/2023 2:09 PM EDT Last INR we have in chart is from 09/22/23, will forward to [facility] * Telephone Encounter - Juana Boland OSA - 09/30/2023 1:08 PM EDT Patient says he had PT INR drawn yesterday at [facility]. Inquiring if results were received. Patient will contact [facility] to see if they can transfer results. documented in this encounter Plan of Treatment Upcoming Encounters Date Type Department Care Team (Late st Contact Info) Description 10/02/2023 6:15 PM EDT Anticoagulation [facility], Corona Doss [address] [place] [address] [place] [address] [facility], [address] [place] [address] 10/25/2023 3:00 PM EDT Office Visit Family [address] [place] [address] Brigitte Byrd MD [address] [place] [address] [place] [address] 11/16/2023 1:00 PM EDT Telemedicine Pharmacy, [facility] [address] [facility] [place] [address] [facility] [address] [facility] [place] [address] Scheduled Procedures Name Priority Associated Diagnoses Date/Ti me COLONOSCOPY FLEXIBLE PROXIMAL DIAGNOSTIC Recall History of colon polyps Health Maintenance Due Date Last Done Comments DISCUSS TOBACCO CESSATION (REFER TO SMARTSET #8940) 1955 Zoster Vaccines (1 of 2) 02/22/1975 [...] occurred with: Not Discussed Care Teams Director Clinical Applications Relationship Specialty Start Date End Date Brigitte Byrd MD [address] [place] [address] [place] [address] PCP - General Family Medicine 11/23/18 documented as of this encounter
--- OUTSIDE RECORDS SUMMARY | 2024-01-09 00:11 | External Medical Summary | Summary of Care ---
Author Name Unknown Organization [facility] Address [address] [facility] [place] [address] Phone [phone] Care Team Providers Care Lead Software Development Engineer Name Role Phone Brigitte Byrd MD Primary Care Prov ider Reason for Visit * Reason Comments Dosage Adjustment Via Phone (anticoag Cl inic) Encounter Details Date Type Department Care Team (Late st Contact Info) Description 09/25/2023 6:15 PM EDT Anticoagulation [facility], Corona Doss [address] [place] [address] [place] [address] [place] [address] Chronic atrial fibrillation (HCC)* Allergies Active Allergy Reactions Criticality Noted Date Comments Diclofenac Resin Rash Low 11/15/1999 Voltaren Atorvastatin Calcium Muscle pain 11/23/2018 Rosuvastatin Muscle pain 11/23/2018 documented as of this encounter (statuses as of 09/25/2023) Medications Medication Sig Dispensed Refills Start Date [...] Active Pylera 140-125-125 MG Oral Capsule (Bis Vjarar-Vwyeaniq-Llpc acyc) 3 capsules 4 times/day x 10 [...] 25 MG Oral Tablet (Tenormin)Indication s:Atherosclerosis of nikolski coronary artery of nikolski heart without angina pectoris take 1/2 tablet [...] insulin dependent ([facility]) inject 20 units subcutaneously every morning and inject 10 units every NIGHT 30 mL 3 3 Active Fluticasone Propionate 50 MCG/ACT Nasal Suspension (Flonase)Indications :Allergic rhinitis Administer 1 [place] into nostril in the morning. 48 mL [...] s:Moderate episode of recurrent major depressive disorder ([facility]) take 1 capsule by mouth every [...] :Moderate episode of recurrent major depressive disorder ([facility]) take 1 tablet by mouth BEFORE BEDTIME 90 Tablet 1 4 Active Pregabalin 100 MG Oral Capsule (Lyrica)Indications: Cervicalgia take 1 capsule by mouth every morning and 1 capsule by mouth AT NOON and 1 capsule by mouth BEFORE BEDTIME 90 Capsule 2 4 Active HYDROcodone-Acetamin ophen 10-325 MG Oral TabletIndications:Ce rvical stenosis of spinal canal,Lumbar degenerative disc disease Take 2.5 Tablets by mouth daily as needed for Pain, Severe. Take 0.5-1 tab every 8 hours as needed for severe pain. Max dose of 2.5 tablets per day. 75 Tablet 4 Active Potassium Chloride Karis ER 10 MEQ Oral Tablet Extended ReleaseIndications:H ypopotassemia take 1 tablet by mouth every morning 90 Tablet 1 4 Active predniSONE 10 MG Oral Tablet (Deltasone)Indicatio ns:COPD exacerbation ([facility]) Take 4 tabs for 2 days, 3 [...] evening. Or take as instructed by the [facility]. Due for INR. 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 06/20 History [...] situ 11/23/2018 Chronic atrial fibrillation 08/24/2018 Overview: [facility] Dr Armenta Diabetes mellitus, type [...] CORONARY ATHEROSCLEROSIS OF UNSPECIFIED TYPE OF VESSEL, [place] OR GRAFT Peptic ulcer Asthma, mild persistent HLA B27 (HLA B27 positive) documented as of this encounter (statuses as of 09/25/2023) Resolved Problems Problem Noted Date Diagnosed Date [...] as of this encounter (statuses as of 09/25/2023) Immunizations Name Administration Dates Next Due COVID-19 mRNA, LNP-s, No Pre serve, 2-Dose Series (Moderna) 10/23/2020,06/23/2020 H1N1 2008 Influenza, IM 04/06/2009 Pneumococcal Conjugate Vacci ne, 20-valent ([id number]) 11/19/2021 Pneumococcal Polysaccharide PPV23 (Pneumovax) 02/09/2007 Seasonal [...] Notes * Gula, Dorinda L, RPh - 09/25/2023 1:09 PM EDT Images from the original note were not included. Medication Therapy Disease Management - Anticoagulation Patient: Alan Pereira Jr. | : 1955 Subjective Contacts Type Contact Phone/Fax 09/25/2023 01:12 PM EDT Phone (Outgoing) Alan Pereira Jr. (Self) [phone] (M) Spoke to Patient Patient-Reported Symptoms: Patient Findings Negatives: Signs/symptoms of thrombosis, Signs/symptoms of bleeding, Change in health, Change in alcohol use, Change in activity, Upcoming invasive procedure, Missed doses, Extra doses, Change in medications, Change in diet/appetite, Bruising Comments: Pt states he noticed he bruises more easily, will monitor and call us if any changes. PT has not taken dose yet today. Aware to not take any Fri until we call. Objective Current Warfarin Dose As of 09/25/2023 Warfarin maintenance plan: 5 mg (5 mg x 1) every Mon; 10 mg (5 mg x 2) all other days INR Result As of 09/25/2023 INR goal: 2.0-3.0 INR used for dosin.87 (09/22/2023) Assessment & Plan Warfarin Plan As of 09/25/2023 Full warfarin instructions: 7/1: Hold; 7/2: Hold; 7/3: Hold; Otherwise 5 mg every Mon; 10 mg all other days Next INR check: 09/29/2023 Repeat PT/INR in 5 day(s) Weekly dose: not changed Additional Dosing Information: Description [facility] Dorinda Spears RP Clinical Pharmacist 09/25/2023, 1:12 PM documented in this encounter Plan of Treatment Upcoming Encounters Date Type Department Care Team (Late st Contact Info) Description 09/29/2023 6:15 PM EDT Anticoagulation [facility] Services, Corona Doss [address] [place] [address] [place] [address] [place] [address] 10/25/2023 3:00 PM EDT Office Visit Family Medicine [address] [place] [phone] Brigitte Byrd MD [address] [place] [address] [place] [address] 11/16/2023 1:00 PM EDT Telemedicine Pharmacy, [facility] [address] [facility] [place] [address] [facility] [address] [facility] [place] [address] Scheduled Procedures Name Priority Associated Diagnoses Date/Ti me COLONOSCOPY FLEXIBLE PROXIMAL DIAGNOSTIC Recall History of colon polyps Health Maintenance Due Date Last Done Comments DISCUSS TOBACCO CESSATION (REFER TO SMARTSET #4479) 1955 Zoster Vaccines (1 of 2) 02/22/1975 [...] Screening Completed 04/03/2023, 10/24/2013 Alpha-1 Antitrypsin Discontinued GARDASIL-HPV IMMUNIZATION SERIES Aged Out No longer eligible based on patient's age to complete this topic Hepatitis B Aged Out No longer eligi ble based on patient's age to complete this topic MENINGOCOCCAL (MENACTRA/MENVEO) Aged Out No longer eligible based on patient's age to complete this topic documented as of this encounter Medical Devices Not on filedocumented as of this encounter Procedures Procedure Name Priority Date/Time Associated Diagnosis Comments OUTSIDE LAB-PT/INR Routine 09/22/2023 documented in this encounter Results * (ABNORMAL) OUTSIDE LAB-PT/INR (09/22/2023) INR-OUTSIDE LAB 6.87(A) 2.0 - 3.0 [facility] 09/22/2023 History Per Patient LABORATORY [address] [address] documented in this encounter Visit Diagnoses Diagnosis [...] Directives occurred with: Not Discussed Care Teams Lead Software Development Engineer Relationship Specialty Start Date End Date Brigitte Byrd MD [address] [place] [address] [place] [address] PCP - General Family Medicine 11/23/18 documented as of this encounter
--- OUTSIDE RECORDS SUMMARY | 2024-01-09 00:11 | External Medical Summary | Summary of Care ---
Author Name Unknown Organization [facility] Address [address] [facility] [place] [address] Phone [phone] Care Team Providers Care Inside Sales Assistant Name Role Phone Brigitte Byrd MD Primary Care Prov ider Reason for Visit * Reason Comments eRx-Medication Refill Encounter Details Date Type Department Care Team (Late st Contact Info) Description 08/16/2023 Refill Rheumatology [address] [place] [phone] Demetrius Glasgow MD [address] [facility] [place] [address] HLA B27 (HLA B27 positive) Allergies Active Allergy Reactions Criticality Noted Date Comments Diclofenac Resin Rash Low 11/15/1999 Voltaren Atorvastatin Calcium Muscle pain 11/23/2018 Rosuvastatin Muscle pain 11/23/2018 documented as of this encounter (statuses as of 09/08/2023) Medications Medication Sig Dispensed Refills Start Date [...] A1c goal of less than 8.0% ([facility]) Use as directed . Test 3 times daily. Pt is on insulin Dx E11.9 1 Kit 04/30/19 22 Active Pylera 140-125-125 MG Oral Capsule (Bis Nhiirp-Aohpiqsl-Jp tracyc) 3 capsules 4 times/day x 10 days 120 Capsule 05/05/19 22 Active NovoLOG FlexPen 100 UNIT/ML Subcutaneous Solution Pen-injector (insulin aspart)Indications :Type 2 diabetes mellitus with hemoglobin A1c goal of less than 8.0% ([facility]) inject 20 units WITH BREAKFAST, 10 UNITS WITH MIDDAY SNACK, 10 UNITS WITH SUPPER (CF:1:40 OVER 160) 45 mL 3 05/24/19 23 Active Atenolol 25 MG Oral Tablet (Tenormin)Indicati ons:Atherosclerosi s of [place] coronary artery of [place] heart without angina pectoris take 1/2 tablet by mouth every evening if needed for PALPITATIONS 45 Tablet 3 09/03/19 23 Active Zoster Vac Recomb Adjuvanted 50 MCG/0.5ML Intramuscular Suspension Reconstituted (Shingrix) Inject 0.5 mL into a large muscle now and repeat dose in 60 to 180 days 1 Each 1 09/14/19 23 Active Insulin Glargine Solostar 100 UNIT/ML Subcutaneous Solution Pen-injector (Basaglar KwikPen)Indication s:Type 2 diabetes mellitus with hemoglobin A1c goal of less than 8.0% ([facility]),Diabetes mellitus, type II, insulin dependent ([facility]) inject 20 units subcutaneously every morning and inject 10 units every NIGHT 30 mL 3 09/24/19 23 Active Fluticasone Propionate 50 MCG/ACT Nasal Suspension (Flonase)Indicatio ns:Allergic rhinitis Administer 1 [place] into nostril in the morning. 48 mL 1 12/04/19 23 Active BD Pen Needle Short U/F 31G X 8 MM (Insulin Pen Needle)Indications :Type 2 diabetes mellitus with hemoglobin A1c goal of less than 8.0% ([facility]) USE 5 TIMES DAILY WITH INSULIN DX E11.9 500 Each 3 12/06/19 23 Active Warfarin Sodium 5 MG Oral Tablet (Coumadin) take 2 tablets by mouth once daily OR DIRECTED BY COUMADIN CLINIC 180 Tablet 1 01/13/20 23 Active linaCLOtide 290 MCG Oral CapsuleIndications [...] A1c goal of less than 8.0% ([facility]),Diabetes mellitus, type II, insulin dependent ([facility]) USE TEST STRIPS TO TEST BLOOD SUGARS THREE TIMES DAILY 300 Strip 2 05/25/19 24 Active DULoxetine HCl 30 MG Oral Capsule Delayed Release Particles (Cymbalta)Indicati ons:Moderate episode of recurrent major depressive disorder ([facility]) take 1 capsule by mouth every morning 90 Capsule 1 07/05/19 24 Active FreeStyle Test In Vitro Strip (Glucose Blood)Indications: Type 2 diabetes mellitus with hemoglobin A1c goal of less than 8.0% ([facility]) Use to test 3 times a day. E11.9 300 Strip 2 07/21/19 24 Active Albuterol Sulfate HFA 108 (90 Base) MCG/ACT Inhalation Aerosol SolutionIndication s:Mild persistent asthma with acute exacerbation,COPD, group B, by GOLD 2017 classification ([facility]) inhale 1 TO 2 puffs by mouth and INTO THE LUNGS every 2 hours if needed 8.5 g 5 07/24/19 24 Active LORazepam 0.5 MG Oral Tablet (Ativan)Indication s:PTSD (post-traumatic stress disorder) take 1 tablet by mouth twice a day if needed for anxiety 60 Tablet 2 08/08/19 24 Active Hydroxychloroquine Sulfate 200 MG Oral Tablet (Plaquenil)Indicat ions:HLA B27 (HLA B27 positive) Take 2 Tablets by mouth at bedtime. 180 Tablet 08/30/19 24 Active Hydroxychloroquine Sulfate 200 MG Oral Tablet (Plaquenil)Indicat ions:HLA B27 (HLA B27 positive) Take 2 Tablets by mouth at bedtime. 180 Tablet 3 05/09/19 23 024 Discontinued(Re fill) Potassium Chloride Karis ER 10 MEQ Oral Tablet Extended ReleaseIndications :Hypopotassemia take 1 tablet by mouth every morning 90 Tablet 2 12/01/19 23 024 Discontinued predniSONE 10 MG Oral Tablet (Deltasone)Indicat ions:COPD exacerbation ([facility]) Take 4 tabs for 2 days, 3 tabs for 2 days, 2 tabs for 2 days 1 tab for 2 days 20 Tablet 07/05/19 24 024 Discontinued(Re fill) HYDROcodone-Acetam inophen 10-325 MG Oral TabletIndications: Cervical stenosis of spinal canal,Lumbar degenerative disc disease Take 2.5 Tablets by mouth daily as needed for Pain, Severe. Take 0.5-1 tab every 8 hours as needed for severe pain. Max dose of 2.5 tablets per day. 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 06/20 History [...] situ 11/23/2018 Chronic atrial fibrillation 08/24/2018 Overview: [facility] Dr Armenta Diabetes mellitus, type [...] CORONARY ATHEROSCLEROSIS OF UNSPECIFIED TYPE OF VESSEL, [place] OR GRAFT Peptic ulcer Asthma, mild persistent HLA B27 (HLA B27 positive) documented as of this encounter (statuses as of 09/08/2023) Resolved Problems Problem Noted Date Diagnosed Date [...] as of this encounter (statuses as of 09/08/2023) Immunizations Name Administration Dates Next Due COVID-19 mRNA, LNP-s, No Pre serve, 2-Dose Series (Moderna) 10/23/2020,06/23/2020 H1N1 2009 Influenza, IM 04/06/2009 Influenza, Whole Virus 01/09/2001 Pneumococcal Conjugate Vacci ne, 20-valent (Rkluyiq19) 11/19/2021 Pneumococcal Polysaccharide PPV23 (Pneumovax) 02/09/2007 Seasonal [...] Date Smoking Tobacco: Every Day Cigarettes 0.5 51.5 Started: 1972 Pipe Cigars Smokeless Tobacco: Never [...] have money to get more. Sometimes true Sex and Gender Information Value Date Recorded Sex Assigned at Male 06/07/2023 2:46 PM EDT Gender Identity Male 06/07/2023 2:46 PM EDT Sexual Orientation Straight 06/07/2023 2: 46 PM EDT Job Start Date Occupation Industry Not on file Not on file Not on file documented as of this encounter Miscellaneous Notes * Telephone Encounter - Sarah Johns OSA - 09/08/2023 8:14 AM EDT LMOM to call to schedule with first available in [facility] or . Letter sent. * Telephone Encounter - Sarah Johns OSA - 09/05/2023 8:23 AM EDT LMOM for patient to call to schedule first available with any provider in [facility] or [place]. * Telephone Encounter - Demetrius Glasgow MD - 08/30/2023 4:52 PM EDTSigned Prescriptions: Disp Refills Hydroxychloroquine Sulfate 200 MG Oral Tab*180 Ta*0 Sig: Take 2 Tablets by mouth at bedtime.Authorizing Provider: DEMETRIUS GLASGOW PRefused Prescriptions: Disp Refills Hydroxychloroquine Sulfate 200 MG Oral Tab*180 Ta*0 Sig: take 2 tablets by mouth at bedtimeRefused By: DEMETRIUS GLASGOW PReason for Refusal: Other (comment below) * Addendum Note - Demetrius Glasgow MD - 08/30/2023 4:52 PM EDTAddended by: DEMETRIUS GLASGOW on: 08/30/2023 04:52 PM Modules accepted: Orders * Telephone Encounter - Demetrius Glasgow MD - 08/30/2023 4:51 PM EDT Francine- please contact patient to schedule follow-up appointment. Can be with any provider at or [place] * Addendum Note - Dorian Manning [facility] - 08/30/2023 8:34 AM EDTAddended by: DORIAN MANNING on: 08/30/2023 08:34 AM Modules accepted: Orders * Telephone Encounter - Dorian Manning [facility] - 08/30/2023 8:32 AM EDT Please see pt's MyG message indicating that they have resumed HCQ. Please approve refill if appropriate to continue. Thank you, Dorian Manning, PharmD [facility] Clinical Pharmacist Rheumatology Department [phone] 08/30/2023 * Telephone Encounter - Demetrius Glasgow MD - 08/25/2023 4:54 PM EDTRefused Prescriptions: Disp Refills Hydroxychloroquine Sulfate 200 MG Oral Tab*180 Ta*0 Sig: take 2 tablets by mouth at bedtime Refused By: DEMETRIUS GLASGOW Reason for Refusal: Other (comment below) * Telephone Encounter - Demetrius Glasgow MD - 08/25/2023 4:54 PM EDT Pharmacy-please tried calling patient again to see if he is taking Plaquenil or not * Telephone Encounter - Dorian Manning [facility] - 08/25/2023 2:27 PM EDTPending Prescriptions: Disp Refills Hydroxychloroquine Sulfate 200 MG Oral Tab*180 Ta*0 Sig: take 2 tablets by mouth at bedtime * Telephone Encounter - Dorian Manning [facility] - 08/25/2023 2:21 PM EDT Rheumatology: Refill Request(s) Per review of the refill parameters, Medication was NOT refilled d/t following concern: Past due to follow up and see notes below. Have been unsuccessful at contacting patient to verify if currently taking HCQ, as plan at last visit 06/20/22 stated, "Can stop plaquenil. If symptoms worsen off Plaquenil could consider a biologic. Asked him to contact me in 1 month off Plaquenil." Please advise if HCQ should be refilled or not at this time. Dorian Manning [facility] Clinical Pharmacist Rheumatology Department 08/25/2023,2:21 PM * Telephone Encounter - Dorian Manning RP - 08/22/2023 4:01 PM EDTPending Prescriptions: Disp Refills Hydroxychloroquine Sulfate 200 MG Oral Tab*180 Ta*3 Sig: Take 2 Tablets by mouth at bedtime. * Telephone Encounter - Dorian Manning [facility] - 08/22/2023 3:53 PM EDT Pt past due for appt. Plan at last OV 06/20/22 states, "Can stop plaquenil. If symptoms worsen off Plaquenil could consider a biologic. Asked him to contact me in 1 month off Plaquenil." Called patient to verify if has continued to take HCQ. Unable to reach patient at this time. Left message on the answering machine requesting callback or MyG reply. Please transfer him back to myself or an available pharmacist. Advised patient to please call [phone]. Thank you, Dorian Manning, PharmD Clinical Pharmacist Centralized Clinical Pharmacy Services ([facility]) (formerly Telepharmacy) [phone] 08/22/2023, 3:57 PM documented in this encounter Plan of Treatment Upcoming Encounters Date Type Department Care Team (Late st Contact Info) Description 09/14/2023 6:45 PM EDT Anticoagulation Centralized Clinical Pharmacy Services, [facility] Doss [address] [place] [address] [place] [address] [facility] [address] [facility] [place] [address] 10/25/2023 3:00 PM EDT Office Visit Family Medicine [address] [place] [phone] Brigitte Byrd MD [address] [place] [address] [place] [phone] 11/16/2023 1:00 PM EDT Telemedicine Pharmacy, [facility] [address] [place] [phone] [facility] [address] [place] [phone] Scheduled Procedures Name Priority Associated Diagnoses Date/Ti me COLONOSCOPY FLEXIBLE PROXIMAL DIAGNOSTIC Recall History of colon polyps Health Maintenance Due Date Last Done Comments DISCUSS TOBACCO CESSATION (REFER TO SMARTSET #0315) 1955 Zoster Vaccines (1 of 2) 02/22/1975 [...] Additional history exists Influenza Vaccine (FLU shot) (Season Ended) 2023 02/02/2021, 02/02/2021, 01/14/2020, Additional history exists [...] Years Completed 11/19/2021, 02/09/2007 AAA Screening Completed 04/03/2023 Alpha-1 Antitrypsin Discontinued GARDASIL-HPV IMMUNIZATION SERIES Aged [...] Directives occurred with: Not Discussed Care Teams Inside Sales Assistant Relationship Specialty Start Date End Date Brigitte Byrd MD [address] [place] [address] [place] [phone] PCP - General Family Medicine 11/23/18 documented as of this encounter
--- OUTSIDE RECORDS SUMMARY | 2024-01-09 00:11 | External Medical Summary | Summary of Care ---
Author Name Unknown Organization [facility] Address [address] [facility] [place] [address] Phone [phone] Care Team Providers Care Smt Machine Operator Name Role Phone Brigitte Byrd MD Primary Care Prov ider Reason for Visit * Reason Comments Dosage Adjustment Via Phone (anticoag Cl inic) Encounter Details Date Type Department Care Team (Latest Contact Info) Description 09/14/2023 6:45 PM EDT Anticoagulation Centralized Clinical Pharmacy Services, [facility]ona Doss [address] [place] [address] [place] [phone] [place] [address] [address] [facility] [place] [address] Chronic atrial fibrillation (HCC)* Allergies Active Allergy Reactions Criticality Noted Date Comments Diclofenac Resin Rash Low 11/15/1999 Voltaren Atorvastatin Calcium Muscle pain 11/23/2018 Rosuvastatin Muscle pain 11/23/2018 documented as of this encounter (statuses as of 09/14/2023) Medications Medication Sig Dispensed Refills Start Date [...] goal of less than 8.0% ([facility]) Use as directed . Test 3 times daily. Pt is on insulin Dx E11.9 1 Kit 2 Active Pylera 140-125-125 MG Oral Capsule (Bis Xycyxo-Xrpvwwai-Jzsy acyc) 3 capsules 4 times/day x 10 days 120 Capsule 2 Active NovoLOG FlexPen 100 UNIT/ML Subcutaneous Solution Pen-injector (insulin aspart)Indications:T ype 2 diabetes mellitus with hemoglobin A1c goal of less than 8.0% ([facility]) inject 20 units WITH BREAKFAST, 10 UNITS WITH MIDDAY SNACK, 10 UNITS WITH SUPPER (CF:1:40 OVER 160) 45 mL 3 3 Active Atenolol 25 MG Oral Tablet (Tenormin)Indication s:Atherosclerosis of [place] coronary artery of [place] heart without angina pectoris take 1/2 tablet [...] goal of less than 8.0% ([facility]),Diabetes mellitus, type II, insulin dependent ([facility]) inject 20 units subcutaneously every morning and inject 10 units every NIGHT 30 mL 3 3 Active Fluticasone Propionate 50 MCG/ACT Nasal Suspension (Flonase)Indications :Allergic rhinitis Administer 1 [place] into nostril in the morning. 48 mL 1 3 Active BD Pen Needle Short U/F 31G X 8 MM (Insulin Pen Needle)Indications:T ype 2 diabetes mellitus with hemoglobin A1c goal of less than 8.0% ([facility]) USE 5 TIMES DAILY WITH INSULIN DX E11.9 500 Each 3 3 Active Warfarin Sodium 5 MG Oral Tablet (Coumadin) take 2 tablets by mouth once daily OR DIRECTED BY COUMADIN CLINIC 180 Tablet 1 3 Active linaCLOtide 290 MCG Oral CapsuleIndications:C [...] goal of less than 8.0% ([facility]),Diabetes mellitus, type II, insulin dependent ([facility]) USE TEST STRIPS TO TEST BLOOD SUGARS THREE TIMES DAILY 300 Strip 2 4 Active DULoxetine HCl 30 MG Oral Capsule Delayed Release Particles (Cymbalta)Indication s:Moderate episode of recurrent major depressive disorder ([facility]) take 1 capsule by mouth every morning 90 Capsule 1 4 Active FreeStyle Test In Vitro Strip (Glucose Blood)Indications:Ty pe 2 diabetes mellitus with hemoglobin A1c goal of less than 8.0% ([facility]) Use to test 3 times a day. E11.9 300 Strip 2 4 Active Albuterol Sulfate HFA 108 (90 Base) MCG/ACT Inhalation Aerosol SolutionIndications: Mild persistent asthma with acute exacerbation,COPD, group B, by GOLD 2017 classification ([facility]) inhale 1 TO 2 puffs by [...] of recurrent major depressive disorder ([facility]) take 1 tablet by mouth BEFORE [...] mouth at bedtime. 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 06/20 History [...] 11/23/2018 Chronic atrial fibrillation 08/24/2018 Overview: [facility] Dr Armenta Diabetes mellitus, type [...] CORONARY ATHEROSCLEROSIS OF UNSPECIFIED TYPE OF VESSEL, [place] OR GRAFT Peptic ulcer Asthma, mild persistent HLA B27 (HLA B27 positive) documented as of this encounter (statuses as of 09/14/2023) Resolved Problems Problem Noted Date Diagnosed Date [...] as of this encounter (statuses as of 09/14/2023) Immunizations Name Administration Dates Next Due COVID-19 mRNA, LNP-s, No Pre serve, 2-Dose Series (Moderna) 10/23/2020,06/23/2020 H1N1 2008 Influenza, IM 04/06/2009 Pneumococcal Conjugate Vacci ne, 20-valent (Hyhhmdd25) 11/19/2021 Pneumococcal Polysaccharide PPV23 (Pneumovax) 02/09/2007 Seasonal [...] No 06/07/2023 Does the household have a [facility] source of income? (Household - for ages [...] of this encounter Progress Notes * Kayy Elliott, residential specialist - 09/14/2023 7:43 AM EDT Patient Phone Numbers Sent patient MyG message reminding him he is overdue for INR blood work. Will follow up again in 2-3 weeks if labs are not drawn sooner. Thank you, Kayy Elliott Manager Business Systems Centralized Clinical Pharmacy Services ([facility]) 09/14/2023,7:43 AM documented in this encounter Plan of Treatment Upcoming Encounters Date Type Department Care Team (Late st Contact Info) Description 10/05/2023 6:45 PM EDT Anticoagulation Centralized Clinical Pharmacy Services, [facility] Doss [address] [place] [address] [place] [address] [facility], [address] [place] [address] 10/25/2023 3:00 PM EDT Office Visit Family Medicine [address] [place] [phone] Brigitte Byrd MD [address] [place] [address] [place] [phone] 11/16/2023 1:00 PM EDT Telemedicine Pharmacy, [facility] [address] [facility] [place] [phone] [facility] 132 [facility] [place] [phone] Scheduled Procedures Name Priority Associated Diagnoses Date/Ti me COLONOSCOPY FLEXIBLE PROXIMAL DIAGNOSTIC Recall History of colon polyps Health Maintenance Due Date Last Done Comments DISCUSS TOBACCO CESSATION (REFER TO SMARTSET #0955) 1955 Zoster Vaccines (1 of 2) 02/22/1975 [...] Directives occurred with: Not Discussed Care Teams Smt Machine Operator Relationship Specialty Start Date End Date Brigitte Byrd MD [address] [place] [address] [place] [phone] PCP - General Family Medicine 11/23/18 documented as of this encounter
--- OUTSIDE RECORDS SUMMARY | 2024-01-09 00:11 | External Medical Summary | Summary of Care ---
Author Name Unknown Organization [facility] Address [address] [facility] [place] [address] Phone [phone] Care Team Providers Care Manager Nursing Name Role Phone Brigitte Byrd MD Primary Care Prov ider Reason for Visit * Reason Comments eRx-Medication Refill Encounter Details Date Type Department Care Team (Late st Contact Info) Description 08/16/2023 Refill Rheumatology [address] [place] [phone] Demetrius Glasgow [facility] [address] [facility] [address] HLA B27 (HLA B27 positive) Allergies Active Allergy Reactions Criticality Noted Date Comments Diclofenac Resin Rash Low 11/15/1999 Voltaren Atorvastatin Calcium Muscle pain 11/23/2018 Rosuvastatin Muscle pain 11/23/2018 documented as of this encounter (statuses as of 09/05/2023) Medications Medication Sig Dispensed Refills Start Date [...] Active Pylera 140-125-125 MG Oral Capsule (Bis Xthnfu-Vtacamnf-Nm tracyc) 3 capsules 4 times/day x 10 days 120 Capsule 05/05/19 22 Active NovoLOG FlexPen 100 UNIT/ML Subcutaneous Solution Pen-injector (insulin aspart)Indications :Type 2 diabetes mellitus with hemoglobin A1c goal of less than 8.0% ([facility]) inject 20 units WITH BREAKFAST, 10 UNITS WITH MIDDAY SNACK, 10 UNITS WITH SUPPER (CF:1:40 OVER 160) 45 mL 3 05/24/19 23 Active Atenolol 25 MG Oral Tablet (Tenormin)Indicati ons:Atherosclerosi s of [place] coronary artery of bishop [...] Nasal Suspension (Flonase)Indicatio ns:Allergic rhinitis Administer 1 [place] into nostril in the morning. 48 mL [...] ons:Moderate episode of recurrent major depressive disorder ([facility] [...] 10 MG Oral Tablet (Deltasone)Indicat ions:COPD exacerbation ([facility]) Take 4 tabs for 2 days, [...] as of this encounter (statuses as of 09/05/2023) Active Problems Problem Noted Date Diagnosed Date [...] situ 11/23/2018 Chronic atrial fibrillation 08/24/2018 Overview: [facility] Dr Armenta Diabetes mellitus, type [...] CORONARY ATHEROSCLEROSIS OF UNSPECIFIED TYPE OF VESSEL, [place] OR GRAFT Peptic ulcer Asthma, mild persistent HLA B27 (HLA B27 positive) documented as of this encounter (statuses as of 09/05/2023) Resolved Problems Problem Noted Date Diagnosed Date [...] as of this encounter (statuses as of 09/05/2023) Immunizations Name Administration Dates Next Due COVID-19 mRNA, LNP-s, No Pre serve, 2-Dose Series (Moderna) 10/23/2020,06/23/2020 H1N1 2009 Influenza, IM 04/06/2009 Influenza, Whole Virus 01/09/2001 Pneumococcal Conjugate Vacci ne, 20-valent ([id number]) 11/19/2021 Pneumococcal Polysaccharide PPV23 (Pneumovax) 02/09/2007 Seasonal [...] schedule first available with any provider in [facility]. * Telephone Encounter - Demetrius Glasgow MD [...] Can be with any provider at or [place] * Addendum Note - Dorian Manning [facility] - 08/30/2023 8:34 AM EDTAddended by: DORIAN MANNING on: 08/30/2023 08:34 AM Modules accepted: Orders * Telephone Encounter - Dorian Manning [facility] - 08/30/2023 8:32 AM EDT Please see pt's MyG message indicating that they have resumed HCQ. Please approve refill if appropriate to continue. Thank you, Dorian Manning, PharmD [facility] Clinical Pharmacist Rheumatology Department [phone] 08/30/2023 * Telephone Encounter - Demetrius Glasgow [...] not * Telephone Encounter - Dorian Manning [facility] - 08/25/2023 2:27 PM EDTPending Prescriptions: Disp Refills Hydroxychloroquine Sulfate 200 MG Oral Tab*180 Ta*0 Sig: take 2 tablets by mouth at bedtime * Telephone Encounter - Dorian Manning [facility] - 08/25/2023 2:21 PM EDT Rheumatology: Refill [...] or not at this time. Dorian Manning [facility] Clinical Pharmacist Rheumatology Department 08/25/2023,2:21 PM * Telephone Encounter - Dorian Manning [facility] - 08/22/2023 4:01 PM EDTPending Prescriptions: Disp Refills Hydroxychloroquine Sulfate 200 MG Oral Tab*180 Ta*3 Sig: Take 2 Tablets by mouth at bedtime. * Telephone Encounter - Dorian Manning RPh - 08/22/2023 3:53 PM EDT Pt past [...] available pharmacist. Advised patient to please call [phone]. Thank you, Dorian Manning, PharmD Clinical Pharmacist Centralized Clinical Pharmacy Services ([facility]) (formerly Telepharmacy) [phone] 08/22/2023, 3:57 PM documented in this encounter Plan of Treatment Upcoming Encounters Date Type Department Care Team (Late st Contact Info) Description 09/14/2023 6:45 PM EDT Anticoagulation Centralized Clinical Pharmacy Services, Corona Doss [address] [place] [address] [place] [address] [facility], [address] [place] [address] 10/25/2023 3:00 PM EDT Office Visit Family Medicine [address] [place] [phone] Brigitte Byrd MD [address] [place] [address] [place] [address] 11/16/2023 1:00 PM EDT Telemedicine Pharmacy, [facility] [address] [place] [address] [facility] [address] [place] [place] [address] Scheduled Procedures Name Priority Associated Diagnoses Date/Ti me COLONOSCOPY FLEXIBLE PROXIMAL DIAGNOSTIC Recall History of colon polyps Health Maintenance Due Date Last Done Comments DISCUSS TOBACCO CESSATION (REFER TO SMARTSET #6395) 1955 Zoster Vaccines (1 of 2) 02/22/1975 [...] occurred with: Not Discussed Care Teams Manager Nursing Relationship Specialty Start Date End Date Brigitte Byrd MD [address] [place] [address] [place] [address] PCP - General Family Medicine 11/23/18 documented as of this encounter
--- OUTSIDE RECORDS SUMMARY | 2024-01-09 00:11 | External Medical Summary | Summary of Care ---
Author Name Unknown Organization [facility] Address [address] [facility] [place] [address] Phone [phone] Care Team Providers Care Patternmaker Metal Name Role Phone Brigitte Cm MD Primary Care Prov ider Reason for Visit * Reason Comments eRx-Medication Refill Encounter Details Date Type Department Care Team (Late st Contact Info) Description 09/21/2023 Refill Family Medicine [address] [phone] Brigitte Cm MD [address] [place] [address] [place], [place] [address] [address] Chronic atrial fibrillation (HCC)* Allergies Active Allergy Reactions Criticality Noted Date Comments Diclofenac Resin Rash Low 11/15/1999 Voltaren Atorvastatin Calcium Muscle pain 11/23/2018 Rosuvastatin Muscle pain 11/23/2018 documented as of this encounter (statuses as of 09/21/2023) Medications Medication Sig Dispensed Refills Start Date [...] hemoglobin A1c goal of less than 8.0% ([facility]) Use as directed . Test 3 times daily. Pt is on insulin Dx E11.9 1 Kit 04/30/19 22 Active Pylera 140-125-125 MG Oral Capsule (Bis Yikfty-Nbmwympg-Hyg racyc) 3 capsules 4 times/day x 10 days 120 Capsule 05/05/19 22 Active NovoLOG FlexPen 100 UNIT/ML Subcutaneous Solution Pen-injector (insulin aspart)Indications: Type 2 diabetes mellitus with hemoglobin A1c goal of less than 8.0% ([facility]) inject 20 units WITH BREAKFAST, 10 UNITS WITH MIDDAY SNACK, 10 UNITS WITH SUPPER (CF:1:40 OVER 160) 45 mL 3 05/24/19 23 Active Atenolol 25 MG Oral Tablet (Tenormin)Indicatio ns:Atherosclerosis of [place] coronary artery of [place] heart without angina pectoris take 1/2 tablet [...] hemoglobin A1c goal of less than 8.0% ([facility]),Diabetes mellitus, type II, insulin dependent ([facility]) inject 20 units subcutaneously every morning and inject 10 units every NIGHT 30 mL 3 09/24/19 23 Active Fluticasone Propionate 50 MCG/ACT Nasal Suspension (Flonase)Indication s:Allergic rhinitis Administer 1 [place] into nostril in the morning. 48 mL 1 12/04/19 23 Active BD Pen Needle Short U/F 31G X 8 MM (Insulin Pen Needle)Indications: Type 2 diabetes mellitus with hemoglobin A1c goal of less than 8.0% ([facility]) USE 5 TIMES DAILY WITH INSULIN DX [...] hemoglobin A1c goal of less than 8.0% ([facility]),Diabetes mellitus, type II, insulin dependent ([facility]) USE TEST STRIPS TO TEST BLOOD SUGARS THREE TIMES DAILY 300 Strip 2 05/25/19 24 Active DULoxetine HCl 30 MG Oral Capsule Delayed Release Particles (Cymbalta)Indicatio ns:Moderate episode of recurrent major depressive disorder ([facility]) take 1 capsule by mouth every morning 90 Capsule 1 07/05/19 24 Active FreeStyle Test In Vitro Strip (Glucose Blood)Indications:T ype 2 diabetes mellitus with hemoglobin A1c goal of less than 8.0% ([facility]) Use to test 3 times a day. E11.9 300 Strip 2 07/21/19 24 Active Albuterol Sulfate HFA 108 (90 Base) MCG/ACT Inhalation Aerosol SolutionIndications :Mild persistent asthma with acute exacerbation,COPD, group B, by GOLD 2017 classification ([facility]) inhale 1 TO 2 puffs by mouth [...] s:Moderate episode of recurrent major depressive disorder ([facility]) take 1 tablet by mouth BEFORE BEDTIME 90 Tablet 1 08/17/19 24 Active Pregabalin 100 MG Oral Capsule (Lyrica)Indications :Cervicalgia take 1 capsule by mouth every morning and 1 capsule by mouth AT NOON and 1 capsule by mouth BEFORE BEDTIME 90 Capsule 2 08/17/19 24 Active HYDROcodone-Acetami nophen 10-325 MG Oral TabletIndications:C ervical stenosis of spinal canal,Lumbar degenerative disc disease Take 2.5 Tablets by mouth daily as needed for Pain, Severe. Take 0.5-1 tab every 8 hours as needed for severe pain. Max dose of 2.5 tablets per day. 75 Tablet 08/25/19 24 Active Potassium Chloride Karis ER 10 MEQ Oral Tablet Extended ReleaseIndications: Hypopotassemia take 1 tablet by mouth every morning 90 Tablet 1 08/29/19 24 Active predniSONE 10 MG Oral Tablet (Deltasone)Indicati ons:COPD exacerbation ([facility]) Take 4 tabs for 2 days, 3 [...] evening. Or take as instructed by the [facility]. Due for INR. 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 06/20 History [...] situ 11/23/2018 Chronic atrial fibrillation 08/24/2018 Overview: [facility] Dr Armenta Diabetes mellitus, type [...] CORONARY ATHEROSCLEROSIS OF UNSPECIFIED TYPE OF VESSEL, [place] OR GRAFT Peptic ulcer Asthma, mild persistent HLA B27 (HLA B27 positive) documented as of this encounter (statuses as of 09/21/2023) Resolved Problems Problem Noted Date Diagnosed Date [...] as of this encounter (statuses as of 09/21/2023) Immunizations Name Administration Dates Next Due COVID-19 mRNA, LNP-s, No Pre serve, 2-Dose Series (Moderna) 10/23/2020,06/23/2020 H1N1 2009 Influenza, IM 04/06/2009 Pneumococcal Conjugate Vacci ne, 20-valent ([id number]) 11/19/2021 Pneumococcal Polysaccharide PPV23 (Pneumovax) 02/09/2007 Seasonal [...] encounter Miscellaneous Notes * Telephone Encounter - Grayson Hurley [facility] - 09/21/2023 3:02 PM EDTSigned Prescriptions: Disp Refills Warfarin Sodium 5 MG Oral Tablet (Coumadin)180 Ta*0 Sig: Take 1-2 Tablets by mouth every evening. Or take as instructed by the [facility]. Due for INR.Authorizing Provider: BRIGITTE CM User: GRAYSON HURLEY * Telephone Encounter - Grayson Hurley [facility] - 09/21/2023 3:00 PM EDT Assessment & Plan Warfarin Plan As of 07/31/2023 Full warfarin instructions: 5 mg every Mon; 10 mg all other days No change documented: Dorinda Spears [facility] Next INR check: 08/15/2023 0 refills at this time as patient is due for INR. Thanks, Grayson Hurley, PharmD Clinical Pharmacist Centralized Clinical Pharmacy Services ([facility]) [phone] 09/21/2023 3:00 PM * Telephone Encounter - Nisha Bojorquez [facility] - 09/21/2023 1:34 PM EDTPending Prescriptions: Disp Refills Warfarin Sodium 5 MG Oral Tablet [Pharmacy*180 Ta*1 Sig: take 2 tablets by mouth once daily OR DIRECTED BY COUMADIN CLINIC * Telephone Encounter - Nisha Bojorquez RPh - 09/21/2023 1:31 PM EDT Pt managed by [facility] Pt overdue for INR Please review and approve if appropriate Thanks, Nisha Bojorquez, PharmD Clinical Pharmacist Central[facility] Clinical Pharmacy Services ([facility]) [phone] 09/21/2023 1:32 PM documented in this encounter Plan of Treatment Upcoming Encounters Date Type Department Care Team (Late st Contact Info) Description 10/05/2023 6:45 PM EDT Anticoagulation Centralized Clinical Pharmacy Services, Corona Doss [address] [place] [address] [place] [address] [facility], [place] [address] [address] [facility] [place] [address] 10/25/2023 3:00 PM EDT Office Visit Family Medicine [address] [place] [phone] Brigitte Cm MD [address] [place] [address] [place] [address] 11/16/2023 1:00 PM EDT Telemedicine Pharmacy, [facility] [address] [place] [address] [facility] 132 [place] [address] Scheduled Procedures Name Priority Associated Diagnoses Date/Ti me COLONOSCOPY FLEXIBLE PROXIMAL DIAGNOSTIC Recall History of colon polyps Health Maintenance Due Date Last Done Comments DISCUSS TOBACCO CESSATION (REFER TO SMARTSET #3111) 1955 Zoster Vaccines (1 of 2) 02/22/1975 [...] Directives occurred with: Not Discussed Care Teams Patternmaker Metal Relationship Specialty Start Date End Date Brigitte Cm MD [address] [place] [address] [place] [address] PCP - General Family Medicine 11/23/18 documented as of this encounter
--- OUTSIDE RECORDS SUMMARY | 2024-01-09 00:11 | External Medical Summary | Summary of Care ---
Author Name Unknown Organization [facility] Address [address] [facility] [place] [address] Phone [phone] Care Team Providers Care Lead Nurse Name Role Phone Brigitte Byrd MD Primary Care Prov ider Reason for Visit * Reason Onset Date Comments Medication Refill 09/24/2023 Encounter Details Date Type Department Care Team (Late st Contact Info) Description 09/24/2023 Refill Family Medicine [address] [phone] Brigitte Byrd MD [address] [place], [place] [address] [address] Cervical stenosis of spinal canal; [...] Active Pylera 140-125-125 MG Oral Capsule (Bis Qhtsub-Cejgmefz-Ogz racyc) 3 capsules 4 times/day x 10 [...] 25 MG Oral Tablet (Tenormin)Indicatio ns:Atherosclerosis of [place] coronary artery of [place] heart without angina pectoris take 1/2 tablet [...] Nasal Suspension (Flonase)Indication s:Allergic rhinitis Administer 1 [place] into nostril in the morning. 48 mL [...] 4 Active predniSONE 10 MG Oral Tablet (Deltasone)Indicati [...] evening. Or take as instructed by the [facility]. Due for INR. 180 Tablet 4 Active HYDROcodone-Acetami nophen 10-325 MG [...] 2.5 tablets per day. 75 Tablet 4 09/24/19 24 Discontinu ed(Refill) documented as of this encounter (statuses as of 09/25/2023) Active Problems Problem Noted Date Diagnosed Date Reactive arthritis of multiple sites 07/05/2023 Food insecurity 07/03/2023 Overview: Per [facility] Protocol Diabetic peripheral neuropathy 09/13/2022 senior living current use of systemic steroids 06/20 History [...] situ 11/23/2018 Chronic atrial fibrillation 08/24/2018 Overview: [facility] Dr Armenta Diabetes mellitus, type [...] CORONARY ATHEROSCLEROSIS OF UNSPECIFIED TYPE OF VESSEL, [place] OR GRAFT Peptic ulcer Asthma, mild persistent [...] IM 04/06/2009 Pneumococcal Conjugate Vacci ne, 20-valent ([id number]) 11/19/2021 Pneumococcal Polysaccharide PPV23 (Pneumovax) 02/09/2007 Seasonal [...] Telephone Encounter - Marcie Borja MD - 09/25/2023 6:37 PM EDT Signed Prescriptions: Disp Refills HYDROcodone-Acetaminophen 10-325 MG Oral T*75 Tab*0 Sig: Take 2.5 Tablets by mouth daily as needed for Pain, Severe. Take 0.5-1 tab every 8 hours as needed for severe pain. Max dose of 2.5 tablets per day. Authorizing Provider: MARCIE BORJA * Telephone Encounter - Thomas Garza [facility] - 09/25/2023 4:22 PM EDT Pending Prescriptions: Disp Refills HYDROcodone-Acetaminophen 10-325 MG Oral T*75 Tab*0 Sig: Take 2.5 Tablets by mouth daily as needed for Pain, Severe. Take 0.5-1 tab every 8 hours as needed for severe pain. Max dose of 2.5 tablets per day. * Telephone Encounter - Thomas Garza [facility] - 09/25/2023 4:19 PM EDT I have reviewed the patients controlled substance dispensing history in the Prescription Drug Monitoring Program in compliance with the [facility] regulations before prescribing a controlled substance. PDMP checked on 09/25/2023. Pending Prescriptions: Disp Refills HYDROcodone-Acetaminophen 10-325 MG Oral *75 Tab*0 Sig: Take 2.5 Tablets by mouth daily as needed for Pain, Severe. Take 0.5-1 tab every 8 hours as needed for severe pain. Max dose of 2.5 tablets per day. Last Visit: 03/15/2023 (in office), 08/29/2023 (telemedicine) Next Visit: 10/25/2023 Date medication was last filled: 08/25/23 Date medication is due for refill: 09/23/23 Pharmacy: Danisha [facility]ASQUE[facility] #[id number] [facility] Is this request for a [...] Results Review. Please approve if appropriate. Thanks, Thomas Garza, PharmD Clinical Pharmacist Centralized Clinical Pharmacy Services ([facility]) [phone] 09/25/2023, 4:20 PM documented in this encounter Plan of Treatment Upcoming Encounters Date Type Department Care Team (Late st Contact Info) Description 09/29/2023 6:15 PM EDT Anticoagulation Centralized Clinical Pharmacy Services, Corona Doss [address] [place] [address] [place] [address] [facility], [address] [place] [address] 10/25/2023 3:00 PM EDT Office Visit Family Medicine [address] [place] [phone] Brigitte Byrd MD [address] [place] [address] [place] [address] 11/16/2023 1:00 PM EDT Telemedicine Pharmacy, [facility] 132 [facility] [place] [address] [facility] 132 [facility] [place] [address] Scheduled Procedures Name Priority Associated Diagnoses Date/Ti me COLONOSCOPY FLEXIBLE PROXIMAL DIAGNOSTIC Recall History of colon polyps Health Maintenance Due Date Last Done Comments DISCUSS TOBACCO CESSATION (REFER TO SMARTSET #4341) 1955 Zoster Vaccines (1 of 2) 02/22/1975 [...] occurred with: Not Discussed Care Teams Lead Nurse Relationship Specialty Start Date End Date Brigitte Byrd MD [address] [place] [address] [place] [address] PCP - General Family Medicine 11/23/18 documented as of this encounter
--- OUTSIDE RECORDS SUMMARY | 2024-01-09 00:11 | External Medical Summary | Summary of Care ---
Author Name Unknown Organization [facility] Address [address] [facility] [place] [address] Phone [phone] Care Team Providers Care Director Telemetry Name Role Phone Brigitte Byrd MD Primary Care Prov ider Encounter Details Date Type Department Care Team (Late st Contact Info) Description 09/22/2023 Result Scan Unspecified Department [place], [facility] [address] [facility] [place] [address] <No scans attached> Allergies Active Allergy Reactions [...] (3) MG/3ML Inhalation Solution (Duoneb)Indications: COPD exacerbation ([facility]) INHALE 1 VIAL VIA NEBILIZER TWICE A DAY AND EVERY 6 HOURS IN BETWEEN NEEDED 270 mL 5 1 Active Accu-Chek Guide w/Device KitIndications:Type 2 diabetes mellitus with hemoglobin A1c goal of less than 8.0% ([facility]) Use as directed . Test 3 times daily. Pt is on insulin Dx E11.9 1 Kit 2 Active Pylera 140-125-125 MG Oral Capsule (Bis Walwxs-Axgmrumt-Vpuc acyc) 3 capsules 4 times/day x 10 days 120 Capsule 2 Active NovoLOG FlexPen 100 UNIT/ML Subcutaneous Solution Pen-injector (insulin aspart)Indications:T ype 2 diabetes mellitus with hemoglobin A1c goal of less than 8.0% ([facility]) inject 20 units WITH BREAKFAST, 10 UNITS WITH MIDDAY SNACK, 10 UNITS WITH SUPPER (CF:1:40 OVER 160) 45 mL 3 3 Active Atenolol 25 MG Oral Tablet (Tenormin)Indication s:Atherosclerosis of [place] coronary artery of [place] heart without angina pectoris take 1/2 [...] hemoglobin A1c goal of less than 8.0% ([facility]),Diabetes mellitus, type II, insulin dependent ([facility]) inject 20 units subcutaneously every morning and inject 10 units every NIGHT 30 mL 3 3 Active Fluticasone Propionate 50 MCG/ACT Nasal Suspension (Flonase)Indications :Allergic rhinitis Administer 1 [place] into nostril in the morning. 48 mL 1 3 Active BD Pen Needle Short U/F 31G X 8 MM (Insulin Pen Needle)Indications:T ype 2 diabetes mellitus with hemoglobin A1c goal of less than 8.0% ([facility]) USE 5 TIMES DAILY WITH [...] hemoglobin A1c goal of less than 8.0% ([facility]),Diabetes mellitus, type II, insulin dependent ([facility]) USE TEST STRIPS TO TEST [...] hemoglobin A1c goal of less than 8.0% ([facility]) Use to test 3 times a day. E11.9 300 Strip 2 4 Active Albuterol Sulfate HFA 108 (90 Base) MCG/ACT Inhalation Aerosol SolutionIndications: Mild persistent asthma with acute exacerbation,COPD, group B, by GOLD 2017 classification ([facility]) inhale 1 TO 2 puffs [...] evening. Or take as instructed by the [facility]. Due for INR. 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 06/20 [...] situ 11/23/2018 Chronic atrial fibrillation 08/24/2018 Overview: [facility] Dr Armenta Diabetes mellitus, type [...] CORONARY ATHEROSCLEROSIS OF UNSPECIFIED TYPE OF VESSEL, [place] OR GRAFT Peptic ulcer Asthma, mild persistent [...] IM 04/06/2009 Pneumococcal Conjugate Vacci ne, 20-valent ([id number]) 11/19/2021 Pneumococcal Polysaccharide PPV23 (Pneumovax) 02/09/2007 Seasonal [...] Info) Description 10/05/2023 6:45 PM EDT Anticoagulation [facility] Clinical Pharmacy Services, [address] [place] [address] [place] [address] 10/25/2023 3:00 PM EDT Office Visit Family Medicine [address] [place] [phone] Brigitte Byrd MD [address] [place] [address] [place] [address] 11/16/2023 1:00 PM EDT Telemedicine Pharmacy, [facility] [place] [address] [facility] 132 [facility] [place] [address] Scheduled Procedures Name Priority Associated Diagnoses Date/Ti me COLONOSCOPY FLEXIBLE PROXIMAL DIAGNOSTIC Recall History of colon polyps Health Maintenance Due Date Last Done Comments DISCUSS TOBACCO CESSATION (REFER TO SMARTSET #5199) 1955 Zoster Vaccines (1 of 2) 02/22/1975 [...] Date/Time Associated Diagnosis Comments OUTSIDE LAB RESULTS 09/22/2023 documented in this encounter Results * OUTSIDE LAB RESULTS (09/22/2023) 09/22/2023 [place] [facility] documented in this [...] occurred with: Not Discussed Care Teams Director Telemetry Relationship Specialty Start Date End Date Brigitte Byrd MD [address] [place] [address] [place] [address] PCP - General Family Medicine 11/23/18 documented as of this encounter
--- OUTSIDE RECORDS SUMMARY | 2024-01-09 00:11 | External Medical Summary | Summary of Care ---
Author Name Unknown Organization [facility] Address [address] [facility] [address] Phone [phone] Care Team Providers Care Director Of Hemophilia Name Role Phone Brigitte Byrd MD Primary Care Prov ider Reason for Visit * Reason Onset Date Comments Abnormal Test Results 09/22/2023 PT,INR Encounter Details Date Type Department Care Team (Late st Contact Info) Description 09/22/2023 Telephone Family Medicine [address] [phone] Brigitte Byrd MD [address] [place] [address] [place] [address] Abnormal Test Results (PT,INR) Allergies Active Allergy Reactions Criticality Noted Date [...] hemoglobin A1c goal of less than 8.0% ([facility]) Use as directed . Test 3 times daily. Pt is on insulin Dx E11.9 1 Kit 2 Active Pylera 140-125-125 MG Oral Capsule (Bis Kpvzun-Pkfqelnh-Xbmm acyc) 3 capsules 4 times/day x 10 days 120 Capsule 2 Active NovoLOG FlexPen 100 UNIT/ML Subcutaneous Solution Pen-injector (insulin aspart)Indications:T ype 2 diabetes mellitus with hemoglobin A1c goal of less than 8.0% ([facility]) inject 20 units WITH BREAKFAST, 10 UNITS WITH MIDDAY SNACK, 10 UNITS WITH SUPPER (CF:1:40 OVER 160) 45 mL 3 3 Active Atenolol 25 MG Oral Tablet (Tenormin)Indication s:Atherosclerosis of [place] coronary artery of [place] heart without angina pectoris take 1/2 tablet [...] hemoglobin A1c goal of less than 8.0% ([facility]),Diabetes mellitus, type II, insulin dependent ([facility]) inject 20 units subcutaneously every morning and inject 10 units every NIGHT 30 mL 3 3 Active Fluticasone Propionate 50 MCG/ACT Nasal Suspension (Flonase)Indications :Allergic rhinitis Administer 1 [place] into nostril in the morning. 48 mL 1 3 Active BD Pen Needle Short U/F 31G X 8 MM (Insulin Pen Needle)Indications:T ype 2 diabetes mellitus with hemoglobin A1c goal of less than 8.0% ([facility]) USE 5 TIMES DAILY WITH [...] hemoglobin A1c goal of less than 8.0% ([facility]),Diabetes mellitus, type II, insulin dependent ([facility]) USE TEST STRIPS TO TEST BLOOD SUGARS THREE TIMES DAILY 300 Strip 2 4 Active DULoxetine HCl 30 MG Oral Capsule Delayed Release Particles (Cymbalta)Indication s:Moderate episode of recurrent major depressive disorder ([facility]) take 1 capsule by mouth every morning 90 Capsule 1 4 Active FreeStyle Test In Vitro Strip (Glucose Blood)Indications:Ty pe 2 diabetes mellitus with hemoglobin A1c goal of less than 8.0% ([facility]) Use to test 3 times a day. E11.9 300 Strip 2 4 Active Albuterol Sulfate HFA 108 (90 Base) MCG/ACT Inhalation Aerosol SolutionIndications: Mild persistent asthma with acute exacerbation,COPD, group B, by GOLD 2017 classification ([facility]) inhale 1 TO 2 puffs [...] :Moderate episode of recurrent major depressive disorder ([facility]) take 1 tablet by mouth [...] 10 MG Oral Tablet (Deltasone)Indicatio ns:COPD exacerbation ([facility]) Take 4 tabs for 2 [...] evening. Or take as instructed by the [facility]. Due for INR. 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 peripheral neuropathy 09/13/2022 shelter [...] situ 11/23/2018 Chronic atrial fibrillation 08/24/2018 Overview: [facility] Dr Armenta Diabetes mellitus, type [...] CORONARY ATHEROSCLEROSIS OF UNSPECIFIED TYPE OF VESSEL, [place] OR GRAFT Peptic ulcer Asthma, mild persistent [...] IM 04/06/2009 Pneumococcal Conjugate Vacci ne, 20-valent ([id number]) 11/19/2021 Pneumococcal Polysaccharide PPV23 (Pneumovax) 02/09/2007 Seasonal [...] encounter Miscellaneous Notes * Telephone Encounter - Dorinda Spears RPh - 09/25/2023 10:14 AM EDT Thanks, [facility] will follow up today. Dorinda Spears Rph, Pharm.D. Clinical Pharmacist [facility] ([facility]) [phone] 09/25/2023,10:14 AM * Telephone Encounter - Vandana Delgado RN - 09/25/2023 10:00 AM EDT [facility] patient See scanned PT,INR and compare to other results * Telephone Encounter - Luisa Stahl OSA - 09/22/2023 3:10 PM EDT Omar from [facility] called pt's INR 6.87. PT is 67.4 Any questions call Omar or any tech back [phone] I tried to called nurse line no answer. documented in this encounter Plan of Treatment Upcoming Encounters Date Type Department Care Team (Late st Contact Info) Description 09/25/2023 6:15 PM EDT Anticoagulation [facility] Clinical Pharmacy Services, Corona Doss [address] [place] [address] [place] [address] [facility], [address] [place] [address] 10/25/2023 3:00 PM EDT Office Visit Family Medicine [address] [place] [phone] Brigitte Byrd MD [address] [place] [address] [place] [address] 11/16/2023 1:00 PM EDT Telemedicine Pharmacy, [facility] [address] [place] [address] [facility] [address] [place] [address] Scheduled Procedures Name Priority Associated Diagnoses Date/Ti me COLONOSCOPY FLEXIBLE PROXIMAL DIAGNOSTIC Recall History of colon polyps Health Maintenance Due Date Last Done Comments DISCUSS TOBACCO CESSATION (REFER TO SMARTSET #1959) 1955 Zoster Vaccines (1 of 2) 02/22/1975 [...] occurred with: Not Discussed Care Teams Director Of Hemophilia Relationship Specialty Start Date End Date Brigitte Byrd MD [address] [place] [address] [place] [address] PCP - General Family Medicine 11/23/18 documented as of this encounter
--- OUTSIDE RECORDS SUMMARY | 2024-01-09 00:12 | External Medical Summary | Summary of Care ---
Author Name Unknown Organization [facility] Address [address] [facility] [address] Phone [phone] Care Team Providers Care Ship Scaler Name Role Phone Brigitte Byrd MD Primary Care Prov ider Reason for Visit * Reason Comments Dosage Adjustment In Person (Anticoag Cl inic) Pain Encounter Details Date Type Department Care Team (Late st Contact Info) Description 08/31/2023 1:00 PM EDT Telemedicine Pharmacy, [facility] [address] [facility] 132 [facility] [place] [address] Cervical stenosis of spinal canal*; Cervicalgia Allergies Active Allergy Reactions Criticality Noted Date Comments Diclofenac Resin Rash Low 11/15/1999 Voltaren Atorvastatin Calcium Muscle pain 11/23/2018 Rosuvastatin Muscle pain 11/23/2018 documented as of this encounter (statuses as of 08/31/2023) Medications Medication Sig Dispensed Refills Start Date [...] Active Pylera 140-125-125 MG Oral Capsule (Bis Sndboz-Vpmgfqzp-Qjtq acyc) 3 capsules 4 times/day x 10 [...] 25 MG Oral Tablet (Tenormin)Indication s:Atherosclerosis of [place] coronary artery of [place] heart without angina pectoris take 1/2 tablet [...] Nasal Suspension (Flonase)Indications :Allergic rhinitis Administer 1 [place] into nostril in the morning. 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 [...] situ 11/23/2018 Chronic atrial fibrillation 08/24/2018 Overview: [facility] Dr Armenta Diabetes mellitus, type [...] CORONARY ATHEROSCLEROSIS OF UNSPECIFIED TYPE OF VESSEL, [place] OR GRAFT Peptic ulcer Asthma, mild persistent HLA B27 (HLA B27 positive) documented as of this encounter (statuses as of 08/31/2023) Resolved Problems Problem Noted Date Diagnosed Date [...] as of this encounter (statuses as of 08/31/2023) Immunizations Name Administration Dates Next Due COVID-19 mRNA, LNP-s, No Pre serve, 2-Dose Series (Moderna) 10/23/2020,06/23/2020 H1N1 2008 Influenza, IM 04/06/2009 Influenza, Whole Virus 01/09/2001 Pneumococcal Conjugate Vacci ne, 20-valent ([id number]) 11/19/2021 Pneumococcal Polysaccharide PPV23 (Pneumovax) 02/09/2007 Seasonal [...] as of this encounter Progress Notes * Annabel Vail [facility] - 08/31/2023 2:03 PM EDT I agree with documented plan of care. Annabel Vail, Pharm D, [facility] 08/31/2023, 2:03 PM * Vanessa Paz [facility] - 08/31/2023 1:02 PM EDT Images from the original note were not included. Medication Therapy Disease Management Clinic - Chronic Pain Management Progress Note 08/31/2023 Alan Pereira Jr., identified by name and date of , is a 68 year old male being seen for chronic pain management/education. Patient presents to pain [facility] clinic for return visit. Referring Physician: Brigitte Perez MD Medication Use Agreement: 11/23/18 Patient's Pharmacy: [facility] CHIEF COMPLAINT: neck and back pain Interval History: Patient notes have been dealing with a lot of cardiac issues Notes pain been up and down Notes has good days and then bad days Notes if he moves to quick he gets sharp pain in his neck Notes pain severely impacts enjoyment of life as it limits him from leaving the house Notes some days gets by with 2 Gore tablets but other days has to take 2.5 tablets Notes never went to see [facility] for consult due to cardia issues. Pt interested in contactingthem when he gets clearance from cardiology. Notes that Pain described as: "muscle pain" Sleep: not affected Palliating factors: chiropractor, medicine Exacerbating factors: activity Other interventions tried: chiropractor, non-surigcal candidate, injections Worst time of day for pain: none Imaging: see from 2012 Psych History: PTSD, depression Neurological Hx: none Cardiac Hx: [place] Renal Hx: none Hepatic Hx: none Other: COPD, asthma Exercise/Activity: No assessed Tobacco Use: Never Alcohol Use: denies Illicit Substance/Rx Abuse: Denies CONTROLLED SUBSTANCE COMPLIANCE MONITORING: Opioid Risk Assessment Tool (BRQ): Total score: 0-2 points (Low risk) CAGE-AID (06/01/2021): Total score: 0 points (problem unlikely) Daily MME: 40 PDMP Reviewed (08/31/23): Urine Toxicology Screens: 11/09/2021 - appropriate Pill Count: Not done Functional Goal: QOL Current Pain Level (03/16/23): unchanged Pain Level (01/02/23): worse Pain Level (11/07/22): unchanged Pain Level (08/04/22): unchanged Pain Level (06/03/22): unchangunchangeded Pain Level (03/24/22): no change since last visit Pain Level (01/04/2022): Worse due to pancreatitis Pain Level (11/09/21): Same since last time Pain Level (09/07/21): No change since last visit Pain Level (07/12/2021): significantly worse Pain Level (06/01/21): Slightly worse but not significant. Pain Level (04/21/2021): no change, worse in the winter Pain Level (10/08/2019): distracting Past Pain Medications: cyclobezaprine effexor Fentanyl Methocarbamol nortiptyline nuycenta orpehnadrine Skelaxin Current Pain Medications: Baclofen 10 mg QID PRN (2-3 times/day) Gore 10-325 mg - 2.5 tabs daily PRN Cymbalta 30 mg daily (issues with RLS when increased) Lyrica 100 mg TID *lorazepam, warfarin, trazodone, prednisone Creatinine Clearance: Serum creatinine: 1 mg/dL 11/07/22 1623 Estimated creatinine clearance: 85.7 mL/min Creatinine Results: Recent labs Recent Labs Units 11/07/22 1623 09/20/22 0000 09/14/22 1541 CREATININE - [facility] mg/dL 1.0 -- 0.8 CREATININE-OUTSIDE LAB MG/DL -- 0.83 -- Hepatic Function (ALT): Recent labs Recent Labs Units 11/07/22 1623 09/14/22 1541 12/22/21 1543 ALT - [facility] U/L 26 36 32 Comprehensive Metabolic Panel Results: Results for orders placed or performed in visit on 11/07/22 COMPREHENSIVE METABOLIC PANEL Result Value Ref Range BUN 20 6 - 20 mg/dL Creatinine 1.0 0.6 - 1.2 mg/dL Estimated Glomerular Filtration Rate 88 >=60 mL/min Sodium 137 135 - 146 mmol/L Potassium 4.4 3.5 - 5.1 mmol/L Chloride 97 (L) 98 - 107 mmol/L CO2 28 22 - 32 mmol/L Anion Gap 12 7 - 15 mmol/L Glucose 184 (H) 70 - 120 mg/dL Albumin 4.9 3.8 - 5.0 g/dL AST 23 10 - 50 U/L Alkaline Phosphatase 52 35 - 130 U/L Bilirubin, Total 0.6 <=1.2 mg/dL Calcium 9.5 8.4 - 10.2 mg/dL Protein 6.8 6.0 - 8.3 g/dL ALT 26 10 - 50 U/L ASSESSMENT: Patient aware MTM is a clinical pharmacist visit, with focus on medication options for current diagnoses referred by Primary Care Provider for review and optimization. Focus of this visit is Medication Optimization. Current concerns: continued chronic back pain Adherence: Reviewed current regimen, patient is adherent to regimen. Treatment options: continue current regimen vs further Gore wean vs adjusting other medication such as duloxetine or Lyrica. Pt would like to continue medications at this time. Treatment concerns: none at this time Education provided: discussed revisiting wean at f/u appointment. Pt agreeable. I have evaluated the patient for the appropriateness and necessity of opioid pain medications. Patient has been educated towards the benefits and risks of opioid medications, including dependence, addiction, and overdose. Patient is aware of the requirements set out in the medication use agreement,including the need for routine urine drug screening. No red flags for abuse or misuse have been exhibited. PLAN: Continue current medications Medication changes: no change Pain Medications: Baclofen 10 mg QID PRN (2-3 times/day) Gore 10-325 mg - 2.5 tabs daily PRN Cymbalta 30 mg daily (issues with RLS when increased) Lyrica 100 mg TID *lorazepam, warfarin, trazodone, prednisone Patient verbalized understanding of the plan. Contact clinic with any issues. 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 Clinical Pharmacy Services, [address] [place] [address] [place] [address] 10/25/2023 3:00 PM EDT Office Visit Family [address] [place] [phone] Brigitte Byrd MD [address] [place] [address] [place] [address] 11/16/2023 1:00 PM EDT Telemedicine Pharmacy, [facility] 132 [facility] [place] [address] [facility] [place] [address] [address] [place] [address] Scheduled Procedures Name Priority Associated Diagnoses Date/Ti me COLONOSCOPY FLEXIBLE PROXIMAL DIAGNOSTIC Recall History of colon polyps Health Maintenance Due Date Last Done Comments DISCUSS TOBACCO CESSATION (REFER TO SMARTSET #4634) 1955 Zoster Vaccines (1 of 2) 02/22/1975 Cologuard 02/22/2001 Fecal Occult Blood Test 02/22/2001 Sigmoidoscopy 02/22/2001 Depression, Most Recent Score >= 10 (will fire each visit until score < 10) 06/13/2019 06/12/2019 COVID-19 Vaccine (3 - Moderna risk [...] Chronic atrial fibrillation (HCC)- Primary Atrial fibrillation Cervical stenosis of spinal canal- Primary Spinal stenosis in cervical region Cervicalgia documented in this encounter Advance Directives * [...] Directives occurred with: Not Discussed Care Teams Ship Scaler Relationship Specialty Start Date End Date Brigitte Byrd MD [address] [place] [address] [place] [address] PCP - General Family Medicine 11/23/18 documented as of this encounter
--- OUTSIDE RECORDS SUMMARY | 2024-01-09 00:12 | External Medical Summary | Summary of Care ---
Author Name Unknown Organization [facility] Address [address] [facility] [place] [address] Phone [phone] Care Team Providers Care Remote Encoding Center Manager Name Role Phone Brigitte Byrd MD Primary Care Prov ider Reason for Visit * Reason Comments eRx-Medication Refill Encounter Details Date Type Department Care Team (Late st Contact Info) Description 08/16/2023 Refill Rheumatology [address] [place] [phone] Demetrius Aj MD [address] [facility] [place] [address] HLA B27 (HLA B27 positive) Allergies Active Allergy Reactions Criticality Noted Date Comments Diclofenac Resin Rash Low 11/15/1999 Voltaren Atorvastatin Calcium Muscle pain 11/23/2018 Rosuvastatin Muscle pain 11/23/2018 documented as of this encounter (statuses as of 08/30/2023) Medications Medication Sig Dispensed Refills Start Date [...] Active Pylera 140-125-125 MG Oral Capsule (Bis Zpuihf-Lltwuajm-Na tracyc) 3 capsules 4 times/day x 10 days 120 Capsule 05/05/19 22 Active Hydroxychloroquine Sulfate 200 MG Oral Tablet (Plaquenil)Indicat ions:HLA B27 (HLA B27 positive) Take 2 Tablets by mouth at bedtime. 180 Tablet 3 05/09/19 23 Active NovoLOG FlexPen 100 UNIT/ML Subcutaneous Solution Pen-injector (insulin aspart)Indications :Type 2 diabetes mellitus with hemoglobin A1c goal of less than 8.0% (HCC) inject 20 units WITH BREAKFAST, 10 UNITS WITH MIDDAY SNACK, 10 UNITS WITH SUPPER (CF:1:40 OVER 160) 45 mL 3 05/24/19 23 Active Atenolol 25 MG Oral Tablet (Tenormin)Indicati ons:Atherosclerosi s of [place] coronary artery of [place] heart without angina pectoris take 1/2 tablet by mouth every evening if needed for PALPITATIONS 45 Tablet 3 09/03/19 23 Active Zoster Vac Recomb Adjuvanted 50 MCG/0.5ML Intramuscular Suspension Reconstituted (Shingrix) Inject 0.5 mL into a large muscle now and repeat dose in 60 to 180 days 1 Each 1 09/14/19 23 Active Insulin Glargine Solostar 100 UNIT/ML Subcutaneous Solution Pen-injector (Basaglar Harish)Indication s:Type 2 diabetes mellitus with hemoglobin A1c goal of less than 8.0% ([facility]),Diabetes mellitus, type II, insulin dependent ([facility]) inject 20 units subcutaneously every morning and inject 10 units every NIGHT 30 mL 3 09/24/19 23 Active Fluticasone Propionate 50 MCG/ACT Nasal Suspension (Flonase)Indicatio ns:Allergic rhinitis Administer 1 [place] into nostril in the morning. 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 06/20 [...] situ 11/23/2018 Chronic atrial fibrillation 08/24/2018 Overview: [facility] Dr Armenta Diabetes mellitus, type [...] CORONARY ATHEROSCLEROSIS OF UNSPECIFIED TYPE OF VESSEL, [place] OR GRAFT Peptic ulcer Asthma, mild persistent HLA B27 (HLA B27 positive) documented as of this encounter (statuses as of 08/30/2023) Resolved Problems Problem Noted Date Diagnosed Date [...] as of this encounter (statuses as of 08/30/2023) Immunizations Name Administration Dates Next Due COVID-19 mRNA, LNP-s, No Pre serve, 2-Dose Series (Moderna) 10/23/2020,06/23/2020 H1N1 2009 Influenza, IM 04/06/2009 Influenza, Whole Virus 01/09/2001 Pneumococcal Conjugate Vacci ne, 20-valent ([id number]) 11/19/2021 Pneumococcal Polysaccharide PPV23 (Pneumovax) 02/09/2007 Seasonal [...] as of this encounter Miscellaneous Notes * Addendum Note - Dorian Mendosa [facility] - 08/30/2023 8:34 AM EDTAddended by: DORIAN MENDOSA on: 08/30/2023 08:34 AM Modules accepted: Orders * Telephone Encounter - Dorian Mendosa [facility] - 08/30/2023 8:32 AM EDT Please see pt's MyG message indicating that they have resumed HCQ. Please approve refill if appropriate to continue. Thank you, Dorian Mendosa, PharmD [facility] Clinical Pharmacist Rheumatology Department [phone] 08/30/2023 * Telephone Encounter - Demetrius Aj MD - 08/25/2023 4:54 PM EDTRefused Prescriptions: Disp Refills Hydroxychloroquine Sulfate 200 MG Oral Tab*180 Ta*0 Sig: take 2 tablets by mouth at bedtime Refused By: DEMETRIUS AJ Reason for Refusal: Other (comment below) * Telephone Encounter - Demetrius Aj MD - 08/25/2023 4:54 PM EDT Pharmacy-please tried calling patient again to see if he is taking Plaquenil or not * Telephone Encounter - Dorian Mendosa [facility] - 08/25/2023 2:27 PM EDTPending Prescriptions: Disp Refills Hydroxychloroquine Sulfate 200 MG Oral Tab*180 Ta*0 Sig: take 2 tablets by mouth at bedtime * Telephone Encounter - Dorian Mendosa [facility] - 08/25/2023 2:21 PM EDT Rheumatology: Refill [...] refilled or not at this time. Dorian Mendosa, [facility] Clinical Pharmacist Rheumatology Department 08/25/2023,2:21 PM * Telephone Encounter - Dorian Mendosa [facility] - 08/22/2023 4:01 PM EDTPending Prescriptions: Disp Refills Hydroxychloroquine Sulfate 200 MG Oral Tab*180 Ta*3 Sig: Take 2 Tablets by mouth at bedtime. * Telephone Encounter - Dorian Mendosa [facility] - 08/22/2023 3:53 PM EDT Pt past [...] available pharmacist. Advised patient to please call [phone]. Thank you, Dorian Mendosa, PharmD Clinical Pharmacist [facility] Services ([facility]) (formerly Telepharmacy) [phone] 08/22/2023, 3:57 PM documented in this encounter Plan of Treatment Upcoming Encounters Date Type Department Care Team (Late st Contact Info) Description 08/31/2023 1:00 PM EDT Telemedicine Pharmacy, [address] [place] [address] [facility] [place] [address] 08/31/2023 6:45 PM EDT Anticoagulation [facility], Corona Doss [address] [place] [address] [place] [address] [facility], [place] [address] 60 [facility] [place] [address] 10/25/2023 3:00 PM EDT Office Visit Family Medicine [address] [place] [phone] Brigitte Byrd MD [address] [place] [address] [place] [address] Scheduled Procedures Name Priority Associated Diagnoses Date/Ti me COLONOSCOPY FLEXIBLE PROXIMAL DIAGNOSTIC Recall History of colon polyps Health Maintenance Due Date Last Done Comments DISCUSS TOBACCO CESSATION (REFER TO SMARTSET #1349) 1955 Zoster Vaccines (1 of 2) 02/22/1975 [...] Directives occurred with: Not Discussed Care Teams Remote Encoding Center Manager Relationship Specialty Start Date End Date Brigitte Byrd MD [address] [place] [address] [place] [address] PCP - General Family Medicine 11/23/18 documented as of this encounter
--- OUTSIDE RECORDS SUMMARY | 2024-01-09 00:12 | External Medical Summary | Summary of Care ---
Author Name Unknown Organization [facility] Address [address] [facility] [place]AMORA [address] Phone [phone] Care Team Providers Care Agricultural Equipment Mechanic Name Role Phone Brigitte Byrd MD Primary Care Prov ider Reason for Visit * Reason Comments Dosage Adjustment Via Phone (anticoag Cl inic) Encounter Details Date Type Department Care Team (Latest Contact Info) Description 08/31/2023 6:45 PM EDT Anticoagulation [facility], Corona Doss [address] [place] [address] [place]armoeljo [address] [place] [address] 60 [facility] [place]bell [address] Chronic atrial fibrillation (HCC)* Allergies Active Allergy [...] hemoglobin A1c goal of less than 8.0% ([facility]) Use as directed . Test 3 times daily. Pt is on insulin Dx E11.9 1 Kit 2 Active Pylera 140-125-125 MG Oral Capsule (Bis Bnrimk-Adlaezlg-Fyeb acyc) 3 capsules 4 times/day x 10 days 120 Capsule 2 Active NovoLOG FlexPen 100 UNIT/ML Subcutaneous Solution Pen-injector (insulin aspart)Indications:T ype 2 diabetes mellitus with hemoglobin A1c goal of less than 8.0% ([facility]) inject 20 units WITH BREAKFAST, 10 UNITS WITH MIDDAY SNACK, 10 UNITS WITH SUPPER (CF:1:40 OVER 160) 45 mL 3 3 Active Atenolol 25 MG Oral Tablet (Tenormin)Indication s:Atherosclerosis of [place] coronary artery of [place] heart without angina pectoris take 1/2 tablet [...] hemoglobin A1c goal of less than 8.0% ([facility]),Diabetes mellitus, type II, insulin dependent ([facility]) inject 20 units subcutaneously every morning and inject 10 units every NIGHT 30 mL 3 3 Active Fluticasone Propionate 50 MCG/ACT Nasal Suspension (Flonase)Indications :Allergic rhinitis Administer 1 [place] into nostril in the morning. 48 mL 1 3 Active BD Pen Needle Short U/F 31G X 8 MM (Insulin Pen Needle)Indications:T ype 2 diabetes mellitus with hemoglobin A1c goal of less than 8.0% ([facility]) USE 5 TIMES DAILY WITH [...] hemoglobin A1c goal of less than 8.0% ([facility]),Diabetes mellitus, type II, insulin dependent ([facility]) USE TEST STRIPS TO TEST BLOOD SUGARS THREE TIMES DAILY 300 Strip 2 4 Active DULoxetine HCl 30 MG Oral Capsule Delayed Release Particles (Cymbalta)Indication s:Moderate episode of recurrent major depressive disorder ([facility]) take 1 capsule by mouth every morning 90 Capsule 1 4 Active FreeStyle Test In Vitro Strip (Glucose Blood)Indications:Ty pe 2 diabetes mellitus with hemoglobin A1c goal of less than 8.0% ([facility]) Use to test 3 times a day. 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 06/20 History [...] situ 11/23/2018 Chronic atrial fibrillation 08/24/2018 Overview: [facility] Dr Armenta Diabetes mellitus, type [...] CORONARY ATHEROSCLEROSIS OF UNSPECIFIED TYPE OF VESSEL, [place] OR GRAFT Peptic ulcer Asthma, mild persistent [...] IM 04/06/2009 Pneumococcal Conjugate Vacci ne, 20-valent ([id number]) 11/19/2021 Pneumococcal Polysaccharide PPV23 (Pneumovax) 02/09/2007 Seasonal [...] as of this encounter Progress Notes * Lisa Cabrera CPhT - 08/31/2023 8:16 AM EDT Patient Phone Numbers Left message on patients answering machine to schedule [facility] appointment for [facility] management. [facility] message sent --yes Clinic will follow up again in 2 week(s). Last INR 07/28/2023 Thank you, Lisa Cabrera CPhT Car Unloader Helper II [facility] ([facility]) 08/31/2023,8:16 AM documented in this encounter Plan of Treatment Upcoming Encounters Date Type Department Care Team (Late st Contact Info) Description 08/31/2023 1:00 PM EDT Telemedicine Pharmacy, [address] [place]KEW [address] [facility] [address] [place] [address] 09/14/2023 6:45 PM EDT Anticoagulation [facility], Corona Doss [address] [place] [address] [place] Marmolejo [address] [facility], [address] [place] [address] 10/25/2023 3:00 PM EDT Office Visit Family Medicine [address] [phone] Brigitte Byrd MD [address] [place] [address] [place] Sotelo [address] Scheduled Procedures Name Priority Associated Diagnoses Date/Ti me COLONOSCOPY FLEXIBLE PROXIMAL DIAGNOSTIC Recall History of colon polyps Health Maintenance Due Date Last Done Comments DISCUSS TOBACCO CESSATION (REFER TO SMARTSET #8049) 1955 Zoster Vaccines (1 of 2) 02/22/1975 [...] Directives occurred with: Not Discussed Care Teams Agricultural Equipment Mechanic Relationship Specialty Start Date End Date Brigitte Byrd MD [address] [place] [address] [place]ot[place] [address] PCP - General Family Medicine 11/23/18 documented as of this encounter
--- OUTSIDE RECORDS SUMMARY | 2024-01-09 00:12 | External Medical Summary | Summary of Care ---
Author Name Unknown Organization [facility] Address [address] [facility] [address] Phone [phone] Care Team Providers Care Applications Sales Consultant Name Role Phone Brigitte Cm MD Primary Care Prov ider Reason for Visit * Reason Comments eRx-Medication Refill Encounter Details Date Type Department Care Team (Late st Contact Info) Description 08/28/2023 Refill Family Medicine [address] [phone] Brigitte Cm MD [address] [place], [place] [address]T[place] [id number] Hypopotassemia Allergies Active Allergy Reactions Criticality Noted Date Comments Diclofenac Resin Rash Low 11/15/1999 Voltaren Atorvastatin Calcium Muscle pain 11/23/2018 Rosuvastatin Muscle pain 11/23/2018 documented as of this encounter (statuses as of 08/29/2023) Medications Medication Sig Dispensed Refills Start Date [...] Active Pylera 140-125-125 MG Oral Capsule (Bis Hczphn-Ujgtnawm-Whb racyc) 3 capsules 4 times/day x 10 [...] 25 MG Oral Tablet (Tenormin)Indicatio ns:Atherosclerosis of [place] coronary artery of [place] heart without angina pectoris take 1/2 tablet [...] goal of less than 8.0% ([facility]),Diabetes mellitus, type II, insulin dependent ([facility]) inject 20 units subcutaneously every morning and inject 10 units every NIGHT 30 mL 3 09/24/19 23 Active Fluticasone Propionate 50 MCG/ACT Nasal Suspension (Flonase)Indication s:Allergic rhinitis Administer 1 [place] into nostril in the morning. 48 mL 1 12/04/19 23 Active BD Pen Needle Short U/F 31G X 8 MM (Insulin Pen Needle)Indications: Type 2 diabetes mellitus with hemoglobin A1c goal of less than 8.0% ([facility]) USE 5 TIMES DAILY WITH INSULIN DX E11.9 500 Each 3 12/06/19 23 Active Warfarin Sodium 5 MG Oral Tablet (Coumadin) take 2 tablets by mouth once daily OR DIRECTED BY COUMADIN CLINIC 180 Tablet 1 01/13/20 23 Active linaCLOtide 290 MCG Oral CapsuleIndications: [...] goal of less than 8.0% ([facility]),Diabetes mellitus, type II, insulin dependent ([facility]) USE TEST STRIPS TO TEST BLOOD SUGARS THREE TIMES DAILY 300 Strip 2 05/25/19 24 Active DULoxetine HCl 30 MG Oral Capsule Delayed Release Particles (Cymbalta)Indicatio ns:Moderate episode of recurrent major depressive disorder (HCC) take 1 capsule by mouth every morning 90 Capsule 1 07/05/19 24 Active predniSONE 10 MG Oral Tablet (Deltasone)Indicati ons:COPD exacerbation ([facility]) Take 4 tabs for 2 days, 3 tabs for 2 days, 2 tabs for 2 days 1 tab for 2 days 20 Tablet 07/05/19 24 Active FreeStyle Test In Vitro Strip (Glucose Blood)Indications:T ype 2 diabetes mellitus with hemoglobin A1c goal of less than 8.0% ([facility]) Use to test 3 times a day. E11.9 300 Strip 2 07/21/19 24 Active Albuterol Sulfate HFA 108 (90 Base) MCG/ACT Inhalation Aerosol SolutionIndications :Mild persistent asthma with acute exacerbation,COPD, group B, by GOLD 2017 classification ([facility]) inhale 1 TO 2 puffs by [...] morning 90 Tablet 1 08/29/19 24 Active Potassium Chloride Karis ER 10 MEQ Oral Tablet Extended ReleaseIndications: Hypopotassemia take 1 tablet by mouth every morning 90 Tablet 2 12/01/19 23 024 Discontinued documented as of this encounter (statuses as of 08/29/2023) Active Problems Problem Noted Date Diagnosed Date Reactive arthritis of multiple sites 07/05/2023 Food insecurity 07/03/2023 Overview: [facility] Protocol 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 peripheral neuropathy 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 06/20 [...] situ 11/23/2018 Chronic atrial fibrillation 08/24/2018 Overview: [facility] Dr Armenta Diabetes mellitus, type [...] CORONARY ATHEROSCLEROSIS OF UNSPECIFIED TYPE OF VESSEL, [place] OR GRAFT Peptic ulcer Asthma, mild persistent HLA B27 (HLA B27 positive) documented as of this encounter (statuses as of 08/29/2023) Resolved Problems Problem Noted Date Diagnosed Date [...] as of this encounter (statuses as of 08/29/2023) Immunizations Name Administration Dates Next Due COVID-19 mRNA, LNP-s, No Pre serve, 2-Dose Series (Moderna) 10/23/2020,06/23/2020 H1N1 2009 Influenza, IM 04/06/2009 Pneumococcal Conjugate Vacci ne, 20-valent ([id number]) 11/19/2021 Pneumococcal Polysaccharide PPV23 (Pneumovax) 02/09/2007 Seasonal [...] encounter Miscellaneous Notes * Telephone Encounter - Cuca Ricardo [facility] - 08/29/2023 12:03 PM EDTSigned Prescriptions: Disp Refills Potassium Chloride Karis ER 10 MEQ Oral Tab*90 Tab*1 Sig: take 1 tablet by mouth every morningAuthorizing Provider: BRIGITTE CMOrderkia User: CUCA RICARDO documented in this encounter Plan of Treatment Upcoming Encounters Date Type Department Care Team (Late st Contact Info) Description 08/31/2023 1:00 PM EDT Telemedicine Pharmacy, [facility] [address] [facility] [place] Dev[place] [address] [facility] 132 [place] [address] 08/31/2023 6:45 PM EDT [facility] Central[facility] Clinical Pharmacy Services, Corona Doss [address] [place] [address] [place]armole[place] [address] [place] [address] 60 [facility] [place] [address] 10/25/2023 3:00 PM EDT Office Visit Family Medicine [address] [place] [phone] Brigitte Cm MD [address] [place] [address] [place] Sot[place] [address] Scheduled Procedures Name Priority Associated Diagnoses Date/Ti me COLONOSCOPY FLEXIBLE PROXIMAL DIAGNOSTIC Recall History of colon polyps Health Maintenance Due Date Last Done Comments DISCUSS TOBACCO CESSATION (REFER TO SMARTSET #2810) 1955 Zoster Vaccines (1 of 2) 02/22/1975 [...] PAST YEAR FOR COPD 03/15/2024 03/15/2023 GFR 05/24/2024 05/24/2023, 04/28, 11/07/2022, Additional history exists Colonoscopy 08/12/2026 08/12/2021, 09/24, [...] as of this encounter Visit Diagnoses Diagnosis Hypopotassemia documented in this encounter Advance Directives * [...] Directives occurred with: Not Discussed Care Teams Applications Sales Consultant Relationship Specialty Start Date End Date Brigitte Cm MD [address] [place] [address] [place] Sotelo [phone] PCP - General Family Medicine 11/23/18 documented as of this encounter
--- OUTSIDE RECORDS SUMMARY | 2024-01-09 00:12 | External Medical Summary | Summary of Care ---
Author Name Unknown Organization [facility] Address [address] [facility] [place] [address] Phone [phone] Care Team Providers Care Rehab Director Occupational Therapist Name Role Phone Brigitte Byrd MD Primary Care Prov ider Reason for Visit * Reason Comments eRx-Medication Refill Encounter Details Date Type Department Care Team (Late st Contact Info) Description 08/16/2023 Refill Rheumatology [address] [place] [phone] Demetrius Glasgow MD [address] [facility] [place] [address] HLA B27 (HLA B27 positive) Allergies Active [...] Active Pylera 140-125-125 MG Oral Capsule (Bis Kqnvqs-Kiqknldc-Aj tracyc) 3 capsules 4 times/day x 10 [...] MG Oral Tablet (Tenormin)Indicati ons:Atherosclerosi s of [place] coronary artery of [place] heart without angina pectoris take 1/2 tablet [...] Nasal Suspension (Flonase)Indicatio ns:Allergic rhinitis Administer 1 [place] into nostril in the morning. 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 06/20 [...] situ 11/23/2018 Chronic atrial fibrillation 08/24/2018 Overview: [facility] Dr Armenta Diabetes mellitus, type [...] CORONARY ATHEROSCLEROSIS OF UNSPECIFIED TYPE OF VESSEL, MATCH-E-BE-NASH-SHE-WISH BAND OR GRAFT Peptic ulcer Asthma, mild persistent [...] Virus 01/09/2001 Pneumococcal Conjugate Vacci ne, 20-valent ([id number]) 11/19/2021 Pneumococcal Polysaccharide PPV23 (Pneumovax) 02/09/2007 Seasonal [...] encounter Miscellaneous Notes * Telephone Encounter - Demetrius Glasgow MD [...] Can be with any provider at or [place] * Addendum Note - Dorian Mendosa, [facility] - 08/30/2023 8:34 AM EDTAddended by: DORIAN MENDOSA on: 08/30/2023 08:34 AM Modules accepted: Orders * Telephone Encounter - Dorian Mendosa [facility] - 08/30/2023 8:32 AM EDT Please see pt's MyG message indicating that they have resumed HCQ. Please approve refill if appropriate to continue. Thank you, Dorian Mendosa, PharmD [facility] Clinical Pharmacist Rheumatology Department [phone] 08/30/2023 * Telephone Encounter - Demetrius Glasgow [...] not * Telephone Encounter - Dorian Mendosa [facility] - 08/25/2023 2:27 PM EDTPending Prescriptions: Disp Refills Hydroxychloroquine Sulfate 200 MG Oral Tab*180 Ta*0 Sig: take 2 tablets by mouth at bedtime * Telephone Encounter - Dorian Mendosa [facility] - 08/25/2023 2:21 PM EDT Rheumatology: [...] refilled or not at this time. Dorian Mendosa [facility] Clinical Pharmacist Rheumatology Department 08/25/2023,2:21 PM * Telephone Encounter - Dorian Mendosa [facility] - 08/22/2023 4:01 PM EDTPending Prescriptions: Disp Refills Hydroxychloroquine Sulfate 200 MG Oral Tab*180 Ta*3 Sig: Take 2 Tablets by mouth at bedtime. * Telephone Encounter - Dorian Mendosa [facility] - 08/22/2023 3:53 PM EDT Pt [...] available pharmacist. Advised patient to please call [phone]. Thank you, Dorian Mendosa, PharmD Clinical Pharmacist [facility] Services ([facility]) (formerly Telepharmacy) [phone] 08/22/2023, 3:57 PM documented in this encounter Plan of Treatment Upcoming Encounters Date Type Department Care Team (Late st Contact Info) Description 08/31/2023 1:00 PM EDT Telemedicine Pharmacy, [address] [address] [facility] 132 [place] [address] 08/31/2023 6:45 PM EDT Anticoagulation [facility] Clinical Pharmacy Services, Corona Doss [address] [place] [address] [place]ole[place] [address] [facility], [address] [place] [address] 10/25/2023 3:00 PM EDT Office Visit Family Medicine [address] [place] [phone] Brigitte Byrd MD [address] [place] [address] [place] [address] Scheduled Procedures Name Priority Associated Diagnoses Date/Ti me COLONOSCOPY FLEXIBLE PROXIMAL DIAGNOSTIC Recall History of colon polyps Health Maintenance Due Date Last Done Comments DISCUSS TOBACCO CESSATION (REFER TO SMARTSET #8456) 1955 Zoster Vaccines (1 of 2) 02/22/1975 [...] Directives occurred with: Not Discussed Care Teams Rehab Director Occupational Therapist Relationship Specialty Start Date End Date Brigitte Byrd MD [address] [place] [address] [place] [address] PCP - General Family Medicine 11/23/18 documented as of this encounter
--- OUTSIDE RECORDS SUMMARY | 2024-01-09 00:12 | External Medical Summary | Summary of Care ---
Author Name Unknown Organization [facility] Address [address] [facility] [place] [address] Phone [phone] Care Team Providers Care Director Pediatric Name Role Phone Brigitte Byrd MD Primary Care Prov ider Reason for Visit * Reason Comments eRx-Medication Refill Encounter Details Date Type Department Care Team (Late st Contact Info) Description 08/16/2023 Refill Rheumatology [address] [place] [phone] Demetrius Glasgow [facility] [facility] [place] [address] HLA B27 (HLA B27 positive) Allergies Active [...] Active Pylera 140-125-125 MG Oral Capsule (Bis Gjxkqi-Oysaohzo-Nh tracyc) 3 capsules 4 times/day x 10 [...] MG Oral Tablet (Tenormin)Indicati ons:Atherosclerosi s of [place] coronary artery of [place] heart without angina pectoris take 1/2 tablet [...] Nasal Suspension (Flonase)Indicatio ns:Allergic rhinitis Administer 1 [place] into nostril in the morning. 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 06/20 History [...] situ 11/23/2018 Chronic atrial fibrillation 08/24/2018 Overview: [facility] Dr Armenta Diabetes mellitus, type [...] ATHEROSCLEROSIS OF UNSPECIFIED TYPE OF VESSEL, [place] OR GRAFT Peptic ulcer Asthma, mild persistent [...] Virus 01/09/2001 Pneumococcal Conjugate Vacci ne, 20-valent ([id number]) 11/19/2021 Pneumococcal Polysaccharide PPV23 (Pneumovax) 02/09/2007 Seasonal [...] Can be with any provider at or [place] * Addendum Note - Dorian Mendosa, [facility] - 08/30/2023 8:34 AM EDTAddended by: DROIAN MENDOSA on: 08/30/2023 08:34 AM Modules accepted: Orders * Telephone Encounter - Dorian Mendosa [facility] - 08/30/2023 8:32 AM EDT Please see pt's MyG message indicating that they have resumed HCQ. Please approve refill if appropriate to continue. Thank you, Dorian Mendosa, PharmD [facility] Clinical Pharmacist Rheumatology Department [phone] 08/30/2023 * Telephone Encounter - Demetrius Glasgow [...] not * Telephone Encounter - Dorian Mendosa [facility] - 08/25/2023 2:27 PM EDTPending Prescriptions: Disp Refills Hydroxychloroquine Sulfate 200 MG Oral Tab*180 Ta*0 Sig: take 2 tablets by mouth at bedtime * Telephone Encounter - Dorian Mendosa [facility] - 08/25/2023 2:21 PM EDT [...] or not at this time. Dorian Mendosa [facility] Clinical Pharmacist Rheumatology Department 08/25/2023,2:21 PM * Telephone Encounter - Dorian Mendosa [facility] - 08/22/2023 4:01 PM EDTPending Prescriptions: Disp Refills Hydroxychloroquine Sulfate 200 MG Oral Tab*180 Ta*3 Sig: Take 2 Tablets by mouth at bedtime. * Telephone Encounter - Dorian Mendosa [facility] - 08/22/2023 3:53 PM EDT [...] available pharmacist. Advised patient to please call [phone]. Thank you, Dorian Mendosa, PharmD Clinical Pharmacist Centralized Clinical Pharmacy Services ([facility]) (formerly Telepharmacy) [phone] 08/22/2023, 3:57 PM documented in this encounter Plan of Treatment Upcoming Encounters Date Type Department Care Team (Late st Contact Info) Description 08/31/2023 1:00 PM EDT Telemedicine Pharmacy, [address] [address] [facility] 132 [place] [address] 08/31/2023 6:45 PM EDT Anticoagulation [facility] Clinical Pharmacy Services, Corona Doss [address] [place] [address] [place] [address] [facility], [address] [place] [address] 10/25/2023 3:00 PM EDT Office Visit Family Medicine [address] [place] [phone] Brigitte Byrd MD [address] [place] [address] [place] [address] Scheduled Procedures Name Priority Associated Diagnoses Date/Ti me COLONOSCOPY FLEXIBLE PROXIMAL DIAGNOSTIC Recall History of colon polyps Health Maintenance Due Date Last Done Comments DISCUSS TOBACCO CESSATION (REFER TO SMARTSET #5875) 1955 Zoster Vaccines (1 of 2) 02/22/1975 [...] occurred with: Not Discussed Care Teams Director Pediatric Relationship Specialty Start Date End Date Brigitte Byrd MD [address] [place] [address] [place] [address] PCP - General Family Medicine 11/23/18 documented as of this encounter
--- OUTSIDE RECORDS SUMMARY | 2024-01-09 00:12 | External Medical Summary | Summary of Care ---
Author Name Unknown Organization [facility] Address [address] [facility] [place] [address] Phone [phone] Care Team Providers Care Insurance Account Specialist Name Role Phone Brigitte Byrd MD Primary Care Prov ider Reason for Visit * Reason Comments Acute Encounter Details Date Type Department Care Team (Latest Contact Info) Description 08/29/2023 3:40 PM EDT Telemedicine Family Medicine [address] [phone] Rosa Borja MD [address] [place] [address] [place] [phone] COPD exacerbation ([facility])*; COPD, group B, by GOLD 2017 classification ([facility]); Acute non-recurrent maxillary sinusitis; Type 2 diabetes mellitus with hemoglobin A1c goal of less than 8.0% ([facility]) Allergies Active Allergy Reactions Criticality [...] hemoglobin A1c goal of less than 8.0% ([facility]) Use as directed . Test 3 times daily. Pt is on insulin Dx E11.9 1 Kit 2 Active Pylera 140-125-125 MG Oral Capsule (Bis Ldijvy-Aysyozxk-Yyz racyc) 3 capsules 4 times/day x 10 days 120 Capsule 2 Active Hydroxychloroquine Sulfate 200 MG Oral Tablet (Plaquenil)Indicati ons:HLA B27 (HLA B27 positive) Take 2 Tablets by mouth at bedtime. 180 Tablet 3 3 Active NovoLOG FlexPen 100 UNIT/ML Subcutaneous Solution Pen-injector (insulin aspart)Indications: Type 2 diabetes mellitus with hemoglobin A1c goal of less than 8.0% ([facility]) inject 20 units WITH BREAKFAST, 10 UNITS WITH MIDDAY SNACK, 10 UNITS WITH SUPPER (CF:1:40 OVER 160) 45 mL 3 3 Active Atenolol 25 MG Oral Tablet (Tenormin)Indicatio ns:Atherosclerosis of [place] coronary artery of [place] heart without angina pectoris take 1/2 tablet [...] hemoglobin A1c goal of less than 8.0% ([facility]),Diabetes mellitus, type II, insulin dependent ([facility]) inject 20 units subcutaneously every morning and inject 10 units every NIGHT 30 mL 3 3 Active Fluticasone Propionate 50 MCG/ACT Nasal Suspension (Flonase)Indication s:Allergic rhinitis Administer 1 [place] into nostril in the morning. 48 mL 1 3 Active BD Pen Needle Short U/F 31G X 8 MM (Insulin Pen Needle)Indications: Type 2 diabetes mellitus with hemoglobin A1c goal of less than 8.0% ([facility]) USE 5 TIMES DAILY WITH INSULIN DX E11.9 500 Each 3 3 Active Warfarin Sodium 5 MG Oral Tablet (Coumadin) take 2 tablets by mouth once daily OR DIRECTED BY COUMADIN CLINIC 180 Tablet 1 3 Active linaCLOtide 290 MCG Oral CapsuleIndications: [...] hemoglobin A1c goal of less than 8.0% ([facility]),Diabetes mellitus, type II, insulin dependent ([facility]) USE TEST STRIPS TO TEST BLOOD SUGARS THREE TIMES DAILY 300 Strip 2 4 Active DULoxetine HCl 30 MG Oral Capsule Delayed Release Particles (Cymbalta)Indicatio ns:Moderate episode of recurrent major depressive disorder ([facility]) take 1 capsule by mouth every morning 90 Capsule 1 4 Active FreeStyle Test In Vitro Strip (Glucose Blood)Indications:T ype 2 diabetes mellitus with hemoglobin A1c goal of less than 8.0% ([facility]) Use to test 3 times a day. E11.9 300 Strip 2 4 Active Albuterol Sulfate HFA 108 (90 Base) MCG/ACT Inhalation Aerosol SolutionIndications :Mild persistent asthma with acute exacerbation,COPD, group B, by GOLD 2017 classification ([facility]) inhale 1 TO 2 [...] BEFORE BEDTIME 90 Capsule 2 4 Active HYDROcodone-Acetami nophen 10-325 MG Oral [...] Tablet before bedtime. 20 Tablet 4 Active predniSONE 10 MG Oral Tablet (Deltasone)Indicati ons:COPD exacerbation (HCC) Take 4 tabs for 2 days, 3 tabs for 2 days, 2 tabs for 2 days 1 tab for 2 days 20 Tablet 4 08/29/19 24 Discontinu ed(Refill) documented as of this encounter (statuses as of 08/29/2023) Active Problems Problem Noted Date Diagnosed Date Reactive arthritis of multiple sites 07/05/2023 Food insecurity 07/03/2023 Overview: Per [facility] Protocol Diabetic peripheral neuropathy 09/13/2022 intermediate current use of systemic steroids 06/20 History [...] situ 11/23/2018 Chronic atrial fibrillation 08/24/2018 Overview: [facility] Dr Armenta Diabetes mellitus, type [...] CORONARY ATHEROSCLEROSIS OF UNSPECIFIED TYPE OF VESSEL, ROBINSON OR GRAFT Peptic ulcer Asthma, mild persistent [...] IM 04/06/2009 Pneumococcal Conjugate Vacci ne, 20-valent ([id number]) 11/19/2021 Pneumococcal Polysaccharide PPV23 (Pneumovax) 02/09/2007 Seasonal [...] as of this encounter Progress Notes * Rosa Borja MD - 08/29/2023 4:07 PM EDT Subjective: Alan Pereira Jr. is a 68 year old male. Chief Complaint Patient presents with Acute HPI: Brief Clinical History Mr. Pereira is a 68 year old man last seen in Family Medicine 5 months ago (03-15-23). He is notdue for eval of any conditions. Patient location: HOME. I was in a hospital or clinic location. After connecting through [employer],patient was verified with two unique identifiers. Patient (or authorized legal professional healthcare representative) was then informed that this was a Telemedicine visit and being conducted confidentially over secure lines. Methods to assure confidentiality were taken. Patient acknowledged consent and understanding of pr ivacy and security of the Telemedicine visit. The patient agreed to participate. Has h/o chronic bronchitis/COPD. Has been having chest congestion and shortness of breath. Has beenusing his nebulizer but not working. Is on Trelegy. He is also getting sinusitis with it now. Coughing up green phlegm and blowing out green mucus. Knows when this happens that he needs an antibioticor does not get better. Had used Augmentin the last few times and was not working as well it used to but the Ceftin did work. Results for orders placed or performed in visit on 07/31/23 OUTSIDE LAB-PT/INR Result Value Ref Range INR-OUTSIDE LAB 2.84 *Note: Due to a large number of results and/or encounters for the requested time period, some results have not been displayed. A complete set of results can be found in Results Review. Hemoglobin AIC Results: Lab Results Component Value Date/Time HEMOGLOBIN A1C - [facility] 6.1 (H) 03/15/2023 04:24 PM HEMOGLOBIN A1C - [facility] 6.4 (H) 09/14/2022 03:41 PM HEMOGLOBIN A1C - [facility] 7.2 (H) 05/27/2021 03:42 PM HEMOGLOBIN A1C - [facility] 7.5 (H) 12/30/2019 08:08 AM HEMOGLOBIN A1C - [facility] 7.0 (H) 03/11/2019 02:37 PM HEMOGLOBIN A1C - [facility] 6.9 (H) 08/24/2018 03:07 PM Basic Panel Results: Results for orders placed or performed in visit on 05/22/21 BASIC METABOLIC PANEL Result Value Ref Range BUN 14 6 - 20 mg/dL Creatinine 0.8 0.6 - 1.2 mg/dL Estimated Glomerular Filtration Rate >90 >=60 mL/min Sodium 138 135 - 146 mmol/L Potassium 4.6 3.5 - 5.1 mmol/L Chloride 100 98 - 107 mmol/L CO2 28 22 - 32 mmol/L Anion Gap 10 7 - 15 mmol/L Glucose 145 (H) 70 - 120 mg/dL Calcium 9.1 8.4 - 10.2 mg/dL PHM: Patient Active Problem List Diagnosis Anomalous AV excitation CORONARY ATHEROSCLEROSIS OF UNSPECIFIED TYPE OF VESSEL, ROBINSON OR GRAFT Peptic ulcer Myalgia Type 2 diabetes mellitus with hemoglobin A1c goal of less than 8.0% ([facility]) DYSLIPIDEMIA, GOAL LDL BELOW 70 MEDICATION USE AGREEMENT ADVANCE DIRECTIVE INFORMATION Tobacco use disorder GERD (gastroesophageal reflux disease) Diaphragm paralysis Obesity (BMI 30.0-34.9) Cervicalgia Cervical stenosis of spinal canal Asthma, mild persistent Lumbar degenerative disc disease Old myocardial infarction Insomnia HTN, goal below 140/90 Ventral hernia without obstruction or gangrene PTSD (post-traumatic stress disorder) Diabetes mellitus, type II, insulin dependent ([facility]) Chronic atrial fibrillation (HCC) Cardiac pacemaker in situ Drug-induced constipation Statin intolerance HLA B27 (HLA B27 positive) Reactive arthritis (HCC) COPD, group B, by GOLD 2017 classification ([facility]) Encounter for long-term (current) use of medications Anginal pain (HCC) Family hx of ALS (amyotrophic lateral sclerosis) Malaise and fatigue intermediate current use of systemic steroids History of 2019 novel coronavirus disease (COVID-19) Diabetic peripheral neuropathy (HCC) Reactive arthritis of multiple sites ([facility]) Food insecurity Current Outpatient Medications Medication Sig Dispense Refill predniSONE 10 MG Oral Tablet (Deltasone) Take 4 tabs for 2 days, 3 tabs for 2 days, 2 tabs for 2 days 1 tab for 2 days 20 Tablet 0 Cefuroxime Axetil 500 MG Oral Tablet (Ceftin) Take 1 Tablet by mouth in the morning and 1 Tablet before bedtime. 20 Tablet 0 MULTIVITAMINS PO TABS one tab daily Insulin [...] on insulin Dx E11.9 1 Kit 0 Pylera 140-125-125 MG Oral Capsule (Bis Trmdck-Slqidcrc-Nktwmxni) 3 capsules 4 times/day x 10 days 120 Capsule 0 Hydroxychloroquine Sulfate 200 MG Oral Tablet (Plaquenil) Take 2 Tablets by mouth at bedtime. 180 Tablet 3 NovoLOG FlexPen 100 UNIT/ML Subcutaneous Solution Pen-injector [...] 60 to 180 days 1 Each 1 Insulin Glargine Solostar 100 UNIT/ML Subcutaneous Solution Pen-injector (Basaglar KwikPen) inject 20 units subcutaneously every morning and inject 10 units every NIGHT 30 mL 3 Fluticasone Propionate 50 MCG/ACT Nasal Suspension (Flonase) Administer 1 Wil[place] into nostril in themorning. 48 mL 1 BD Pen Needle Short U/F 31G X 8 MM (Insulin Pen Needle) USE 5 TIMES DAILY WITH INSULIN DX E11.9 500Each 3 Warfarin Sodium 5 MG Oral Tablet (Coumadin) take 2 tablets by mouth once daily OR DIRECTED BY COUMADIN CLINIC 180 Tablet 1 linaCLOtide 290 MCG Oral Capsule DAILY 30 Capsule 5 Baclofen 10 MG Oral Tablet (Lioresal) take 1 tablet by mouth four times a day if needed for muscle spasm 180 Tablet 3 Pantoprazole Sodium 40 MG Oral Tablet Delayed Release (Protonix) take 1 tablet by mouth every morning 90 Tablet 3 Trelegy Ellipta 100-62.5-25 MCG/ACT Aerosol Powder Breath Activated (Acebjlyomwf-Rafqhiebozjt-Llfivlflec) inhale 1 puff by mouth and INTO THE LUNGS every morning 60 Blister Dosing Unit 5 Montelukast Sodium 10 MG Oral Tablet (Singulair) [...] by mouth BEFORE BEDTIME 90 Capsule 2 HYDROcodone-Acetaminophen 10-325 MG Oral Tablet Take 2.5 Tablets by mouth daily as needed for Pain,Severe. Take 0.5-1 tab every 8 hours as needed for severe pain. Max dose of 2.5 tablets per day. 75Tablet 0 Potassium Chloride Karis ER 10 MEQ Oral Tablet Extended Release take 1 tablet by mouth every [id number] Tablet 1 No current facility-administered medications for this visit. Past Medical History: Diagnosis Date Anomalous AV [...] 10/10/2013 adenomatous polyp, repeat 5 yrs/done @ [facility] COLONOSCOPY THRU STOMA, W/BIOPSY 08/04/2009 adenomatous tissue--repeat 3 years COLONOSCOPY, DIAGNOSTIC (RECTUM) N/A 08/12/2021 [facility], Colonoscopy, Internal hemorrnoids, multi polyps in hepatic flexure & descending / biopsies benign adenomatous polyp and a hyperplastic polyp / 5 year recall / EGD, FLEXIBLE, DIAGNOSTIC 09/08/2014 esoophagitis/[facility] EGD, FLEXIBLE, DIAGNOSTIC N/A 08/12/2021 [facility], EGD / diffuse gastritis, otherwise normal / biopsies normal / EGD, FLEXIBLE,W/ENDOSCOPIC US 02/08/2019 + H pylori, gastritis / [facility] EGD, W/ENDOSCOPIC US N/A 11/14/2019 gastritis/cystic lesion in pancreatic head/one stone in CBD/ESOPHAGOGASTRODUODENOSCOPY (EGD), FLEXIBLE, TRANSORAL, ENDOSCOPIC ULTRASOUND performed by Jorge Al DO at [facility] ERCP, DIAGNOSTIC, SPECIMEN COLLECTION N/A 11/14/2019 major papilla bulging, adjacent to diverticulum/filling defect consistent with stone/choledocholiathiasis/ENDOSCOPIC RETROGRADE CHOLANGIOPANCREATOGRAPHY (ERCP) DIAGNOSTIC performed by Jorge Al, DO at [facility] INFORMATION ?1989 Urethrotomy OTHER (INFORMATION) heart stent x7, from [id number] OTHER (INFORMATION) 07/2006 heart cath at [facility]EMAKER INSERTION PER 2018 REMOVAL OF APPENDIX 11/06/2013 lap appy [facility] 11/06/13 ayala Social History Socioeconomic History Marital status: Spouse name: Not on file Number of children: 3 Years of education: Not on file Highest education level: Not on file Occupational History Occupation: disabled-retired Tobacco Use Smoking status: Every Day Current packs/day: 0.50 Average packs/day: 0.5 packs/day for 51.5 years (25.8 ttl pk-yrs) Types: Cigarettes, Pipe, Cigars Start date: 1971 Smokeless tobacco: Never Vaping Use Vaping status: Never Used Substance and Sexual Activity Alcohol use: Yes Alcohol/week: 0.0 standard drinks of alcohol Comment: rare alcohol use Drug use: No Sexual activity: Yes Partners: Female Other Topics Concern Not on file Social History Narrative Not on file Social Determinants of Health Financial Resource Strain: Not on file Food Insecurity: Food Insecurity Present (06/07/2023) Hunger Vital Sign Worried About Running Out of Food in the Last Year: Sometimes true Ran Out of Food in the Last Year: Sometimes true Transportation Needs: Not on file Physical Activity: Not on file Stress: Not on file Social Connections: Not on file Intimate Partner Violence: Not on file Housing Stability: Not on file Review of patient's allergies indicates: Allergen Reactions Lipitor [Atorvastatin Calcium] Muscle pain Rosuvastatin Muscle pain Diclofenac Resin Rash Voltaren Objective: There were no vitals taken for this visit. Physical Exam: General: alert and no distress Neuro Exam: alert & oriented x 3 with fluent speech Extensive ROS Constitutional (f/c/wt/vision/hearing): see above hpi Resp (cough/sob/west): see above hpi CV (cp/palp/fluttering/diaphoresis/west/pnd):+atrial fibrillation GI (n/v/d/hrtburn): Negative Endo (hair/cold or heat intol/ 3 p's): +diabetes Neuro (shaking/weak/fatigu/parasthesi/): Negative Skin (rash/easy bruis/xerosis): Negative Psy (si/hi/halluc/): Negative (nocturia/hesit/drib/sexual review): Negative Lymph (swollen glands/b sx's/: Negative ASSESSMENT: COPD exacerbation (HCC) (Primary) - predniSONE 10 MG Oral Tablet (Deltasone); Take 4 tabs for 2 days, 3 tabs for 2 days, 2 tabs for 2days 1 tab for 2 days - Cefuroxime Axetil 500 MG Oral Tablet (Ceftin); Take 1 Tablet by mouth in the morning and 1 Tabletbefore bedtime. COPD, group B, by GOLD 2017 classification ([facility]) Acute non-recurrent maxillary sinusitis - Cefuroxime Axetil 500 MG Oral Tablet (Ceftin); Take 1 Tablet by mouth in the morning and 1 Tabletbefore bedtime. Type 2 diabetes mellitus with hemoglobin A1c goal of less than 8.0% ([facility])--controlled. Should tolerate a prednisone taper. Follow Up: Return if symptoms worsen or fail to improve. PLAN: Continue present medication(s): Begin medication(s): cefuroxime 500 mg and prednisone taper. Follow up: as needed. Rosa Borja MD documented in this encounter Plan of Treatment Upcoming Encounters Date Type Department Care Team (Late st Contact Info) Description 08/31/2023 1:00 PM EDT Telemedicine Pharmacy, [address] [place] [address] [facility] [address] [facility] [place] [address] 08/31/2023 6:45 PM EDT Anticoagulation Centralized Clinical Pharmacy Services, Corona Doss [address] [place] [address] [place] [address] [facility], [facility] [address] [facility] [place] [address] 10/25/2023 3:00 PM EDT Office Visit Family Medicine [address] [phone] Brigitte Byrd MD [address] [place] [address] [place] [phone] Scheduled Procedures Name Priority Associated Diagnoses Date/Ti me COLONOSCOPY FLEXIBLE PROXIMAL DIAGNOSTIC Recall History of colon polyps Health Maintenance Due Date Last Done Comments DISCUSS TOBACCO CESSATION (REFER TO SMARTSET #1055) 1955 Zoster Vaccines (1 of 2) 02/22/1975 [...] (HCC)- Primary Obstructive chronic bronchitis with exacerbation COPD, group B, by GOLD 2017 classification (HCC) Acute non-recurrent maxillary sinusitis Type 2 diabetes mellitus with hemoglobin A1c [...] Directives occurred with: Not Discussed Care Teams Insurance Account Specialist Relationship Specialty Start Date End Date Brigitte Byrd MD [address] [place] [address] [place] [phone] PCP - General Family Medicine 11/23/18 documented as of this encounter
--- OUTSIDE RECORDS SUMMARY | 2024-01-09 00:12 | External Medical Summary | Summary of Care ---
Author Name Unknown Organization [facility] Address [address] [facility] [address] Phone [phone] Care Team Providers Care Cheese Weigher Name Role Phone Brigitte Byrd MD Primary Care Prov ider Reason for Visit * Reason Comments Dosage Adjustment In Person (Anticoag Cl inic) Pain Encounter Details Date Type Department Care Team (Late st Contact Info) Description 08/31/2023 1:00 PM EDT [facility]icine [facility], [facility] [address] [facility] [address] [facility] [place] [address] Cervical stenosis of spinal canal*; Cervicalgia Allergies [...] Active Pylera 140-125-125 MG Oral Capsule (Bis Wzpfqa-Zonecdft-Avab acyc) 3 capsules 4 times/day x 10 [...] Oral Tablet (Tenormin)Indication s:Atherosclerosis of [place] coronary artery of [place] heart without angina pectoris take 1/2 tablet [...] Nasal Suspension (Flonase)Indications :Allergic rhinitis Administer 1 [place] into nostril in the morning. 48 mL [...] type II, insulin dependent ([facility]) USE TEST STRIPS TO TEST BLOOD SUGARS THREE TIMES DAILY 300 Strip 2 4 Active DULoxetine HCl 30 MG Oral Capsule Delayed Release Particles (Cymbalta)Indication s:Moderate episode of recurrent major depressive disorder ([facility]) take 1 capsule by mouth [...] :Moderate episode of recurrent major depressive disorder ([facility] Diabetic peripheral neuropathy 09/13/2022 [employer] current use of systemic steroids 06/20 [...] situ 11/23/2018 Chronic atrial fibrillation 08/24/2018 Overview: [facility] Dr Armenta Diabetes mellitus, type [...] CORONARY ATHEROSCLEROSIS OF UNSPECIFIED TYPE OF VESSEL, [place] OR GRAFT Peptic ulcer Asthma, mild persistent [...] IM 04/06/2009 Pneumococcal Conjugate Vacci ne, 20-valent ([id number]) 11/19/2021 Pneumococcal Polysaccharide PPV23 (Pneumovax) 02/09/2007 Seasonal [...] as of this encounter Progress Notes * Vanessa Paz, [facility] - 08/31/2023 1:02 PM EDT Images from the original note were not included. Medication Therapy Disease Management [facility] - Chronic Pain Management Progress Note 08/31/2023 Alan Pereira Jr., identified by name and date of , is a 68 year old male being seen for chronic pain management/education. Patient presents to pain MTM clinic for return visit. Referring Physician: Brigitte [...] Notes some days gets by with 2 [place] tablets but other days has to take 2.5 tablets Notes never went to see [facility] for consult due to cardia issues. Pt interested in contactingthem when he gets clearance from cardiology. Notes that Pain described as: "muscle pain" Sleep: not affected Palliating factors: chiropractor, medicine Exacerbating factors: activity Other interventions tried: chiropractor, non-surigcal candidate, injections Worst time of day for pain: none Imaging: see from 2012 Psych History: PTSD, depression Neurological Hx: none Cardiac Hx: NE Renal Hx: none Hepatic Hx: none Other: [...] Baclofen 10 mg QID PRN (2-3 times/day) [place] 10-325 mg - 2.5 tabs daily PRN [...] Treatment options: continue current regimen vs further Alexandria wean vs adjusting other medication such as [...] Baclofen 10 mg QID PRN (2-3 times/day) [place] 10-325 mg - 2.5 tabs daily PRN Cymbalta 30 mg daily (issues with RLS when increased) Lyrica 100 mg TID *lorazepam, warfarin, trazodone, prednisone Patient verbalized understanding of the plan. Contact clinic with any issues. FOLLOW UP: Return to clinic in 10 weeks Micah CagleD PGY1 [employer] 08/31/2023 1:03 PM documented in this encounter Plan of Treatment Upcoming Encounters Date Type Department Care Team (Latest Contact Info) Description 08/31/2023 6:45 PM EDT Anticoagulation Centralized Clinical Pharmacy Services, [address] [place] [address] [facility] 58 [address] [facility] [place] [address] Chronic atrial fibrillation (HCC)* 09/14/2023 6:45 PM EDT Anticoagulation Centralized Clinical Pharmacy Services, [address] [place] [address] [facility] 58 [address] [facility] [place] [address] 10/25/2023 3:00 PM EDT Office Visit Family Medicine [address] [phone] Brigitte Byrd MD [address] [place] [address] [place] [phone] 11/16/2023 1:00 PM EDT Telemedicine Pharmacy, [facility] [address] [facility] [place] [address] [facility] [address] [facility] [place] [phone] Scheduled Procedures Name Priority Associated Diagnoses Date/Ti me COLONOSCOPY FLEXIBLE PROXIMAL DIAGNOSTIC Recall History of colon polyps Health Maintenance Due Date Last Done Comments DISCUSS TOBACCO CESSATION (REFER TO SMARTSET #2131) 1955 Zoster Vaccines (1 of 2) 02/22/1975 [...] Directives occurred with: Not Discussed Care Teams Cheese Weigher Relationship Specialty Start Date End Date Brigitte Byrd MD [address] [place] [address] [place] [phone] PCP - General Family Medicine 11/23/18 documented as of this encounter
--- OUTSIDE RECORDS SUMMARY | 2024-01-09 00:13 | External Medical Summary | Summary of Care ---
Author Name Unknown Organization [facility] Address [address] [facility] [place]AMORA [address] Phone [phone] Care Team Providers Care E D Tech Name Role Phone Brigitte Byrd MD Primary Care Prov ider Encounter Details Date Type Department Care Team (Late st Contact Info) Description 08/15/2023 Orders Only PATIENT PORTAL DO NOT DELETE THIS DEPT USED BY TANIYA ROSALES [id number] Allergies Active Allergy Reactions Criticality Noted Date Comments Diclofenac Resin Rash Low 11/15/1999 Voltaren Atorvastatin Calcium Muscle pain 11/23/2018 Rosuvastatin Muscle pain 11/23/2018 documented as of this encounter (statuses as of 08/15/2023) Medications Medication Sig Dispensed Refills Start Date [...] Active Pylera 140-125-125 MG Oral Capsule (Bis Xtegal-Gupjvixw-Rnmn acyc) 3 capsules 4 times/day x 10 [...] OVER 160) 45 mL 3 3 Active traZODone HCl 50 MG Oral Tablet (Desyrel)Indications :Moderate episode of recurrent major depressive disorder (HCC) take 1 tablet by mouth BEFORE BEDTIME 90 Tablet 3 3 Active Atenolol 25 MG Oral Tablet (Tenormin)Indication s:Atherosclerosis of [place] coronary artery of [place] heart [...] every NIGHT 30 mL 3 3 Active Potassium Chloride Karis ER 10 MEQ Oral Tablet Extended ReleaseIndications:H ypopotassemia take 1 tablet by mouth every morning 90 Tablet 2 3 Active Fluticasone Propionate 50 MCG/ACT Nasal Suspension (Flonase)Indications :Allergic rhinitis Administer 1 [place] into nostril in the morning. 48 mL [...] constipation DAILY 30 Capsule 5 3 Active Pregabalin 100 MG Oral Capsule (Lyrica)Indications: Cervicalgia take 1 capsule by mouth every morning and 1 capsule by mouth AT NOON and 1 capsule by mouth BEFORE BEDTIME 90 Capsule 2 4 Active Baclofen 10 MG Oral Tablet (Lioresal)Indication [...] every morning 90 Capsule 1 4 Active predniSONE 10 MG Oral Tablet (Deltasone)Indicatio ns:COPD exacerbation ([facility]) Take 4 tabs for 2 days, 3 tabs for 2 days, 2 tabs for 2 days 1 tab for 2 days 20 Tablet 4 Active FreeStyle Test In Vitro Strip (Glucose Blood)Indications:Ty pe 2 diabetes mellitus with hemoglobin A1c goal of less than 8.0% ([facility]) Use to test 3 times a day. E11.9 300 Strip 2 4 Active HYDROcodone-Acetamin ophen 10-325 MG Oral TabletIndications:Ce rvical stenosis of spinal canal,Lumbar degenerative disc disease Take 2.5 Tablets by mouth daily as needed for Pain, Severe. Take 0.5-1 tab every 8 hours as needed for severe pain. Max dose of 2.5 tablets per day. 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 use of systemic steroids 06/20 History [...] situ 11/23/2018 Chronic atrial fibrillation 08/24/2018 Overview: [facility] Dr Armenta Diabetes mellitus, type [...] CORONARY ATHEROSCLEROSIS OF UNSPECIFIED TYPE OF VESSEL, FOND DU LAC OR GRAFT Peptic ulcer Asthma, mild persistent HLA B27 (HLA B27 positive) documented as of this encounter (statuses as of 08/15/2023) Resolved Problems Problem Noted Date Diagnosed Date [...] as of this encounter (statuses as of 08/15/2023) Immunizations Name Administration Dates Next Due COVID-19 mRNA, LNP-s, No Pre serve, 2-Dose Series (Moderna) 10/23/2020,06/23/2020 H1N1 2009 Influenza, IM 04/06/2009 Pneumococcal Conjugate Vacci ne, 20-valent ([id number]) 11/19/2021 Pneumococcal Polysaccharide PPV23 (Pneumovax) 02/09/2007 Seasonal Influenza, PF, 6 M & above, IM , (FluLaval or Fluzone) 01/02/2019,02/16/2018 Seasonal Influenza, QUAD, wi th Preserv, 6 mons & Above, 0.5 mL, IM 02/02/2021 Seasonal Influenza, Quadriva lent, No Preserve, IM 01/14/2020,01/28/2016 Seasonal Influenza, Split, I IV3, With Preserve, Inj 02/04/2014,12/13/2012,12/15/2011,01/06,01/21/2010,02/18/2009,04/24/2008 ,02/09/2007 TDAP (age 10 and older)(Boostrix) 02/16/2018 TDAP (age 11 and older)(Adacel) 08/13/2007 documented as of this encounter Social [...] Team (Late st Contact Info) Description 08/16/2023 6:30 AM EDT Anticoagulation Pharmacy Call Center [phone] [place] Isbell [address] [facility], [facility] [address] [facility] [place]bell [address] 08/29/2023 6:10 PM EDT Pharmacy Pharmacy, [facility] [address] [facility] [place] JUAREZ [address] [facility] [address] [facility] [place] Juarez [address] 10/25/2023 3:00 PM EDT Office Visit Family Medicine [address] [place] [phone] Brigitte Byrd MD [address] [place] [address] [place] Sotelo [phone] Scheduled Procedures Name Priority Associated Diagnoses Date/Ti me COLONOSCOPY FLEXIBLE PROXIMAL DIAGNOSTIC Recall History of colon polyps Health Maintenance Due Date Last Done Comments DISCUSS TOBACCO CESSATION (REFER TO SMARTSET #0477) 1955 Zoster Vaccines (1 of 2) 02/22/1975 [...] 1:04 PM 11/14/2019 6:53 PM This order reflects the patients wishes [...] Directives occurred with: Not Discussed Care Teams E D Tech Relationship Specialty Start Date End Date Brigitte Byrd MD [address] [place] [address] T[place] Sotelo [phone] PCP - General Family Medicine 11/23/18 documented as of this encounter
--- OUTSIDE RECORDS SUMMARY | 2024-01-09 00:13 | External Medical Summary | Summary of Care ---
Author Name Unknown Organization [facility] Address [address] [facility] [place] [address] Phone [phone] Care Team Providers Care Director Center Name Role Phone Brigitte Byrd MD Primary Care Prov ider Reason for Visit * Reason Onset Date Comments Other 07/28/2023 Encounter Details Date Type Department Care Team (Late st Contact Info) Description 07/28/2023 Telephone Family [address] [phone] Brigitte Byrd MD [address] [place] [address] T[place] Mclean [phone] Other Allergies Active Allergy Reactions Criticality Noted Date Comments Diclofenac Resin Rash Low 11/15/1999 Voltaren Atorvastatin Calcium Muscle pain 11/23/2018 Rosuvastatin Muscle pain 11/23/2018 documented as of this encounter (statuses as of 07/28/2023) Medications Medication Sig Dispensed Refills Start Date End Date Status MULTIVITAMINS PO TABS one tab daily 0 Active Insulin Syringe-Needle U-100 30G X 1/2" 0.3 ML MISCIndications:DM type 2 nursing care encounter (HCC) Use as directed. 1 Box 11 5 Active isosorbide dinitrate (ISORDIL) 10 MG Tablet Take 1 Tablet by mouth in the morning. 0 9 Active furosemide (LASIX) 20 MG Tablet Take 1 Tablet by mouth in the morning. 0 Active magnesium citrate solutionIndications: Drug-induced constipation Take [...] 1 Tablet by mouth in the morning. 0 1 Active Ipratropium-Albutero l 0.5-2.5 (3) MG/3ML Inhalation Solution (Duoneb)Indications: COPD exacerbation (HCC) INHALE 1 VIAL VIA NEBILIZER TWICE A DAY AND EVERY 6 HOURS IN BETWEEN NEEDED 270 mL 5 1 Active Accu-Chek Guide w/Device KitIndications:Type 2 diabetes mellitus with hemoglobin A1c goal of less than 8.0% ([facility]) Use as directed . Test 3 times daily. Pt is on insulin Dx E11.9 1 Kit 0 2 Active Pylera 140-125-125 MG Oral Capsule (Bis Lncrfb-Gonteplb-Yewz acyc) 3 capsules 4 times/day x 10 days 120 Capsule 0 2 Active Hydroxychloroquine Sulfate 200 MG Oral Tablet (Plaquenil)Indicatio ns:HLA B27 (HLA B27 positive) Take 2 Tablets by mouth at bedtime. 180 Tablet 3 3 Active NovoLOG FlexPen 100 UNIT/ML Subcutaneous Solution Pen-injector (insulin aspart)Indications:T ype 2 diabetes mellitus with hemoglobin A1c goal of less than 8.0% ([facility]) inject 20 units WITH BREAKFAST, 10 UNITS WITH MIDDAY SNACK, 10 UNITS WITH SUPPER (CF:1:40 OVER 160) 45 mL 3 3 Active traZODone HCl 50 MG Oral Tablet (Desyrel)Indications :Moderate episode of recurrent major depressive disorder (HCC) take 1 tablet by mouth BEFORE BEDTIME 90 Tablet 3 3 Active Atenolol 25 MG Oral Tablet (Tenormin)Indication s:Atherosclerosis of [place] coronary artery of [place] heart without angina pectoris take 1/2 tablet [...] A1c goal of less than 8.0% ([facility]),Diabetes mellitus, type II, insulin dependent ([facility]) inject 20 units subcutaneously every morning and inject 10 units every NIGHT 30 mL 3 3 Active Potassium Chloride Karis ER 10 MEQ Oral Tablet Extended ReleaseIndications:H ypopotassemia take 1 tablet by mouth every morning 90 Tablet 2 3 Active Fluticasone Propionate 50 MCG/ACT Nasal Suspension (Flonase)Indications :Allergic rhinitis Administer 1 [place] into nostril in the morning. 48 mL 1 3 Active BD Pen Needle Short U/F 31G X 8 MM (Insulin Pen Needle)Indications:T ype 2 diabetes mellitus with hemoglobin A1c goal of less than 8.0% ([facility]) USE 5 TIMES DAILY WITH INSULIN DX [...] CALL 911. 25 Tablet 3 4 Active LORazepam 0.5 MG Oral Tablet (Ativan)Indications: PTSD (post-traumatic stress disorder) take 1 tablet by mouth twice a day if needed for anxiety 60 Tablet 2 4 Active Loratadine 10 MG Oral Tablet (Claritin)Indication s:Seasonal allergic rhinitis due to pollen take 1 tablet by mouth every morning 90 Tablet 3 4 Active Accu-Chek Guide In Vitro Strip (Glucose Blood)Indications:Ty pe 2 diabetes mellitus with hemoglobin A1c goal of less than 8.0% ([facility]),Diabetes mellitus, type II, insulin dependent (HCC) USE [...] tab for 2 days 20 Tablet 0 4 Active FreeStyle Test In Vitro Strip (Glucose Blood)Indications:Ty pe 2 diabetes mellitus with hemoglobin A1c goal of less than 8.0% ([facility]) Use to test 3 times a day. E11.9 300 Strip 2 4 Active HYDROcodone-Acetamin ophen 10-325 MG Oral TabletIndications:Ce rvical stenosis of spinal canal,Lumbar degenerative disc disease Take 2.5 Tablets by mouth daily as needed for Pain, Severe. Take 0.5-1 tab every 8 hours as needed for severe pain. Max dose of 2.5 tablets per day. 75 Tablet 0 4 Active Albuterol Sulfate HFA 108 (90 Base) MCG/ACT Inhalation Aerosol SolutionIndications: Mild persistent asthma with acute exacerbation,COPD, group B, by GOLD 2017 classification (HCC) inhale 1 TO 2 puffs by mouth and INTO THE LUNGS every 2 hours if needed 8.5 g 5 4 Active documented as of this encounter (statuses as of 07/28/2023) Active Problems Problem Noted Date Diagnosed Date [...] situ 11/23/2018 Chronic atrial fibrillation 08/24/2018 Overview: [facility] Dr Armenta Diabetes mellitus, type [...] CORONARY ATHEROSCLEROSIS OF UNSPECIFIED TYPE OF VESSEL, KAKE OR GRAFT Peptic ulcer Asthma, mild persistent HLA B27 (HLA B27 positive) documented as of this encounter (statuses as of 07/28/2023) Resolved Problems Problem Noted Date Diagnosed Date [...] as of this encounter (statuses as of 07/28/2023) Immunizations Name Administration Dates Next Due COVID-19 mRNA, LNP-s, No Pre serve, 2-Dose Series (Moderna) 10/23/2020,06/23/2020 H1N1 2008 Influenza, IM 04/06/2009 Pneumococcal Conjugate Vacci ne, 20-valent ([id number]) 11/19/2021 Pneumococcal Polysaccharide PPV23 (Pneumovax) 02/09/2007 Seasonal [...] Date Smoking Tobacco: Every Day Cigarettes 0.5 51.4 Started: 1972 Pipe Cigars Smokeless Tobacco: Never [...] encounter Miscellaneous Notes * Telephone Encounter - Radha Lopez CPhT - 07/28/2023 3:56 PM EDT Lab is requesting order for INR , patient is at the lab now. I transferred to [facility]. Thank you, Radha Lopez CPhT Bulk Clerk [facility] ([facility])(formerly telepharmacy) 07/28/2023,3:57 PM documented in this encounter Plan of Treatment Upcoming Encounters Date Type Department Care Team (Late st Contact Info) Description 07/31/2023 6:30 AM EDT Anticoagulation Pharmacy Call Center [address] [facility] [place]bell [address] [facility], [address] [place]bell [address] 08/01/2023 1:00 PM EDT Telemedicine Pharmacy, [facility] [address] [facility] [place] [address] [facility] [address] [place] [address] 10/25/2023 3:00 PM EDT Office Visit Family Medicine [address] [place] [phone] Brigitte Byrd MD [address] [place] [address] [place] Sotelo [phone] Scheduled Procedures Name Priority Associated Diagnoses Date/Ti me COLONOSCOPY FLEXIBLE PROXIMAL DIAGNOSTIC Recall History of colon polyps Health Maintenance Due Date Last Done Comments DISCUSS TOBACCO CESSATION (REFER TO SMARTSET #7044) 1955 Zoster Vaccines (1 of 2) 02/22/1975 [...] FOR COPD 03/15/2024 03/15/2023 GFR 05/24/2024 05/24/2023, 10/25, 09/20/2022, Additional history exists Colonoscopy 08/12/2026 08/12/2021, 09/24, [...] filedocumented as of this encounter Advance Directives Latest Code Status on File Code Status Date Activated Date Inactivated Comments Full Code 11/14/2019 1:04 PM 11/14/2019 6:53 PM This order reflects the patients wishes and were consensually agreed upon. Question Answer Comments Discussion of Advance Directives occurred with: Not Discussed Code Status History Code Status Date Activated Date Inactivated Comments Full Code 11/14/2019 1:03 PM 11/14/2019 1:04 PM This order reflects the patients wishes and were consensually agreed upon. Question Answer Comments Discussion of Advance Directives occurred with: Not Discussed Full Code 11/14/2019 10:54 AM 11/14/2019 1:03 PM This order reflects the patients wishes and were consensually agreed upon. Question Answer Comments Discussion of Advance Directives occurred with: Not Discussed Care Teams Director Center Relationship Specialty Start Date End Date Brigitte Byrd MD [address] [place] [address] [place] Sotelo [phone] PCP - General Family Medicine 11/23/18 documented as of this encounter
--- OUTSIDE RECORDS SUMMARY | 2024-01-09 00:13 | External Medical Summary | Summary of Care ---
Author Name Unknown Organization [facility] Address [address] [facility] [place] [address] Phone [phone] Care Team Providers Care Steel Sash Erector Name Role Phone Brigitte Byrd MD Primary Care Prov ider Reason for Visit * Reason Comments Dosage Adjustment Via Phone (anticoag Cl inic) Encounter Details Date Type Department Care Team (Latest Contact Info) Description 07/31/2023 6:30 AM EDT Anticoagulation Pharmacy Call Center [address] [place] Isbell [address] [facility] [address] [facility] [place] [phone] Chronic atrial fibrillation (HCC)* Allergies Active Allergy Reactions Criticality Noted Date Comments Diclofenac Resin Rash Low 11/15/1999 Voltaren Atorvastatin Calcium Muscle pain 11/23/2018 Rosuvastatin Muscle pain 11/23/2018 documented as of this encounter (statuses as of 07/31/2023) Medications Medication Sig Dispensed Refills Start Date [...] than 8.0% ([facility]) Use as directed . Test 3 times daily. Pt is on insulin Dx E11.9 1 Kit 0 2 Active Pylera 140-125-125 MG Oral Capsule (Bis Yxlono-Nmwbosso-Qcdn acyc) 3 capsules 4 times/day x 10 [...] ([facility]) inject 20 units WITH BREAKFAST, 10 UNITS WITH MIDDAY SNACK, 10 UNITS WITH SUPPER (CF:1:40 OVER 160) 45 mL 3 3 Active traZODone HCl 50 MG Oral Tablet (Desyrel)Indications :Moderate episode of recurrent major depressive disorder (HCC) take 1 tablet by mouth BEFORE BEDTIME 90 Tablet 3 3 Active Atenolol 25 MG Oral Tablet (Tenormin)Indication s:Atherosclerosis of [place] coronary artery of [place] heart without angina pectoris take 1/2 tablet by mouth every evening if needed for PALPITATIONS 45 Tablet 3 3 Active Zoster Vac Recomb Adjuvanted 50 MCG/0.5ML Intramuscular Suspension Reconstituted (Shingrix) Inject 0.5 mL into a large muscle now and repeat dose in 60 to 180 days 1 Each 1 3 Active Insulin Glargine Solostar 100 UNIT/ML Subcutaneous Solution Pen-injector (Basaglar KwikEddy)Indications: Type 2 diabetes mellitus with hemoglobin A1c [...] Nasal Suspension (Flonase)Indications :Allergic rhinitis Administer 1 [place] into nostril in the morning. 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 06/20 History [...] situ 11/23/2018 Chronic atrial fibrillation 08/24/2018 Overview: [facility] Dr Armenta Diabetes mellitus, type [...] CORONARY ATHEROSCLEROSIS OF UNSPECIFIED TYPE OF VESSEL, [place] OR GRAFT Peptic ulcer Asthma, mild persistent HLA B27 (HLA B27 positive) documented as of this encounter (statuses as of 07/31/2023) Resolved Problems Problem Noted Date Diagnosed Date [...] as of this encounter (statuses as of 07/31/2023) Immunizations Name Administration Dates Next Due COVID-19 mRNA, LNP-s, No Pre serve, 2-Dose Series (Moderna) 10/23/2020,06/23/2020 H1N1 2009 Influenza, IM 04/06/2009 Pneumococcal Conjugate Vacci ne, 20-valent ([id number]) 11/19/2021 Pneumococcal Polysaccharide PPV23 (Pneumovax) 02/09/2007 Seasonal [...] as of this encounter Progress Notes * Argelia Craig PHARM Tech - 07/31/2023 11:00 AM EDT Contacts Type Contact Phone/Fax 07/31/2023 10:54 AM EDT Phone (Outgoing) Alan Pereira Jr. (Self) [phone] (M) Subjective Patient Findings Negatives: Signs/symptoms of thrombosis, Signs/symptoms [...] communicated as noted by Pharmacist: Yes LUCY PETIT 07/31/2023, 11:00 AM * Dorinda Spears RPh - 07/31/2023 8:46 AM EDT Coumadin Clinic (region specific) Objective Current Warfarin Dose As of 07/31/2023 Warfarin maintenance plan: 5 mg (5 mg x 1) every Mon; 10 mg (5 mg x 2) all other days INR Result As of 07/31/2023 INR goal: 2.0-3.0 INR used for dosin.84 (07/28/2023) Assessment & Plan Warfarin Plan As of 07/31/2023 Full warfarin instructions: 5 mg every Mon; 10 mg all other days No change documented: Dorinda Spears dorina Next INR check: 08/15/2023 Repeat PT/INR in 2.5 week(s) Weekly dose: not changed Additional Dosing Information: Description [facility] cath 07/09 Tech to contact patient with dose instructions as noted. Dorinda Spears RPh 07/31/2023, 8:46 AM documented in this encounter Plan of Treatment Upcoming Encounters Date Type Department Care Team (Late st Contact Info) Description 08/01/2023 1:00 PM EDT Telemedicine Pharmacy, [facility] [address] [facility] [place] [address] [facility] [address] [facility] [place] [address] 10/25/2023 3:00 PM EDT [address] [phone] Brigitte Byrd MD [address] [place] [address] [place]ot[place] [phone] Scheduled Procedures Name Priority Associated Diagnoses Date/Ti me COLONOSCOPY FLEXIBLE PROXIMAL DIAGNOSTIC Recall History of colon polyps Health Maintenance Due Date Last Done Comments DISCUSS TOBACCO CESSATION (REFER TO SMARTSET #9861) 1955 Zoster Vaccines (1 of 2) 02/22/1975 [...] Date/Time Associated Diagnosis Comments OUTSIDE LAB-PT/INR Routine 07/28/2023 documented in this encounter Results * OUTSIDE LAB-PT/INR (07/28/2023) INR-OUTSIDE LAB 2.84 [facility] History Per Patient LABORATORY [address] [address] documented in this encounter Visit Diagnoses Diagnosis Chronic atrial fibrillation (HCC)- Primary Atrial fibrillation documented in this encounter Advance Directives Latest Code Status [...] Directives occurred with: Not Discussed Care Teams Steel Sash Erector Relationship Specialty Start Date End Date Brigitte Byrd MD [address] [place] [address] [place]otelo [address] PCP - General Family Medicine 11/23/18 documented as of this encounter
--- OUTSIDE RECORDS SUMMARY | 2024-01-09 00:13 | External Medical Summary | Summary of Care ---
Author Name Unknown Organization [facility] Address [address] [facility] [place]AMOR[place] [address] Phone [phone] Care Team Providers Care Heating Element Repairer Name Role Phone Brigitte Cm MD Primary Care Prov ider Reason for Visit * Reason Onset Date Comments Medication Refill 08/24/2023 Encounter Details Date Type Department Care Team (Late st Contact Info) Description 08/24/2023 Refill Family Medicine [address] [phone] Brigitte Cm MD [address] [place], [place] [address]T[place] fre[place] [address] Cervical stenosis of spinal canal; Lumbar degenerative disc disease Allergies Active Allergy Reactions Criticality Noted Date Comments Diclofenac Resin Rash Low 11/15/1999 Voltaren Atorvastatin Calcium Muscle pain 11/23/2018 Rosuvastatin Muscle pain 11/23/2018 documented as of this encounter (statuses as of 08/25/2023) Medications Medication Sig Dispensed Refills Start Date [...] goal of less than 8.0% ([facility]) Use as directed . Test 3 times daily. Pt is on insulin Dx E11.9 1 Kit 2 Active Pylera 140-125-125 MG Oral Capsule (Bis Vysmtm-Vbkzacfe-Qhq racyc) 3 capsules 4 times/day x 10 [...] 25 MG Oral Tablet (Tenormin)Indicatio ns:Atherosclerosis of [place] coronary artery of [place] heart without angina pectoris take 1/2 tablet [...] goal of less than 8.0% ([facility]),Diabetes mellitus, type II, insulin dependent ([facility]) inject 20 units subcutaneously every morning and inject 10 units every NIGHT 30 mL 3 3 Active Potassium Chloride Karis ER 10 MEQ Oral Tablet Extended ReleaseIndications: Hypopotassemia take 1 tablet by mouth every morning 90 Tablet 2 3 Active Fluticasone Propionate 50 MCG/ACT Nasal Suspension (Flonase)Indication s:Allergic rhinitis Administer 1 [place] into nostril in the morning. 48 mL 1 3 Active BD Pen Needle Short U/F 31G X 8 MM (Insulin Pen Needle)Indications: Type 2 diabetes mellitus with hemoglobin A1c goal of less than 8.0% ([facility]) USE 5 TIMES DAILY WITH INSULIN DX [...] goal of less than 8.0% ([facility]),Diabetes mellitus, type II, insulin dependent ([facility]) USE TEST STRIPS TO TEST BLOOD SUGARS THREE TIMES DAILY 300 Strip 2 4 Active DULoxetine HCl 30 MG Oral Capsule Delayed Release Particles (Cymbalta)Indicatio ns:Moderate episode of recurrent major depressive disorder ([facility]) take 1 capsule by mouth every morning 90 Capsule 1 4 Active predniSONE 10 MG Oral Tablet (Deltasone)Indicati ons:COPD exacerbation ([facility]) Take 4 tabs for 2 days, 3 tabs for 2 days, 2 tabs for 2 days 1 tab for 2 days 20 Tablet 4 Active FreeStyle Test In Vitro Strip (Glucose Blood)Indications:T ype 2 diabetes mellitus with hemoglobin A1c goal of less than 8.0% ([facility]) Use to test 3 times a day. E11.9 300 Strip 2 4 Active Albuterol Sulfate HFA 108 (90 Base) MCG/ACT Inhalation Aerosol SolutionIndications :Mild persistent asthma with acute exacerbation,COPD, group B, by GOLD 2017 classification ([facility]) inhale 1 TO 2 puffs by mouth [...] 2.5 tablets per day. 75 Tablet 4 08/24/19 24 Discontinu ed(Refill) documented as of this encounter (statuses as of 08/25/2023) Active Problems Problem Noted Date Diagnosed Date [...] situ 11/23/2018 Chronic atrial fibrillation 08/24/2018 Overview: [facility] Dr Armenta Diabetes mellitus, type [...] CORONARY ATHEROSCLEROSIS OF UNSPECIFIED TYPE OF VESSEL, [place]WN[place] OR GRAFT Peptic ulcer Asthma, mild persistent HLA B27 (HLA B27 positive) documented as of this encounter (statuses as of 08/25/2023) Resolved Problems Problem Noted Date Diagnosed Date [...] as of this encounter (statuses as of 08/25/2023) Immunizations Name Administration Dates Next Due COVID-19 mRNA, LNP-s, No Pre serve, 2-Dose Series (Moderna) 10/23/2020,06/23/2020 H1N1 2009 Influenza, IM 04/06/2009 Pneumococcal Conjugate Vacci ne, 20-valent ([id number]) 11/19/2021 Pneumococcal Polysaccharide PPV23 (Pneumovax) 02/09/2007 Seasonal [...] Miscellaneous Notes * Telephone Encounter - Brigitte Cm MD - 08/25/2023 4:35 PM EDT Signed Prescriptions: Disp Refills HYDROcodone-Acetaminophen 10-325 MG Oral T*75 Tab*0 Sig: Take 2.5 Tablets by mouth daily as needed for Pain, Severe. Take 0.5-1 tab every 8 hours as needed for severe pain. Max dose of 2.5 tablets per day. Authorizing Provider: BRIGITTE CM * Telephone Encounter - Thomas Garza [facility] - 08/25/2023 1:59 PM EDT Pending Prescriptions: Disp Refills HYDROcodone-Acetaminophen 10-325 MG Oral T*75 Tab*0 Sig: Take 2.5 Tablets by mouth daily as needed for Pain, Severe. Take 0.5-1 tab every 8 hours as needed for severe pain. Max dose of 2.5 tablets per day. * Telephone Encounter - Thomas Garza [facility] - 08/25/2023 1:58 PM EDT I have reviewed the patients controlled substance dispensing history in the Prescription Drug Monitoring Program in compliance with the [facility] regulations before prescribing a controlled substance. PDMP checked on 08/25/2023. Pending Prescriptions: Disp Refills HYDROcodone-Acetaminophen 10-325 MG Oral *75 Tab*0 Sig: Take 2.5 Tablets by mouth daily as needed for Pain, Severe. Take 0.5-1 tab every 8 hours as needed for severe pain. Max dose of 2.5 tablets per day. Last Visit: 03/15/2023 (in office), 10/05/2021 (telemedicine) Next Visit: 10/25/2023 Date medication was last filled: 07/25/23 Date medication is due for refill: 08/23/23 Pharmacy: [facility] #[id number] [facility] Is this request for a controlled [...] Centralized Clinical Pharmacy Services (CCPS) (formerly Telepharmacy) [phone] 08/25/2023, 1:58 PM documented in this encounter Plan of Treatment Upcoming Encounters Date Type Department Care Team (Late st Contact Info) Description 08/31/2023 1:00 PM EDT Telemedicine Pharmacy, [address] [place] [address] [place] [address] 08/31/2023 6:45 PM EDT Anticoagulation Pharmacy Call Center [address] [place] [address] [facility] [address] [place] [address] 10/25/2023 3:00 PM EDT Office Visit Family Medicine [address] [place] [phone] Brigitte Cm MD [address] [place] [address] [place] Sotelo [address] Scheduled Procedures Name Priority Associated Diagnoses Date/Ti me COLONOSCOPY FLEXIBLE PROXIMAL DIAGNOSTIC Recall History of colon polyps Health Maintenance Due Date Last Done Comments DISCUSS TOBACCO CESSATION (REFER TO SMARTSET #8993) 1955 Zoster Vaccines (1 of 2) 02/22/1975 [...] Directives occurred with: Not Discussed Care Teams Heating Element Repairer Relationship Specialty Start Date End Date Brigitte Cm MD [address] [place] [address] [place] Sotelo [address] PCP - General Family Medicine 11/23/18 documented as of this encounter
--- OUTSIDE RECORDS SUMMARY | 2024-01-09 00:13 | External Medical Summary | Summary of Care ---
Author Name Unknown Organization [facility] Address [address] [facility] [place] [address] Phone [phone] Care Team Providers Care Building Operator Name Role Phone Brigitte Byrd MD Primary Care Prov ider Reason for Visit * Reason Comments Dosage Adjustment Via Phone (anticoag Cl inic) Encounter Details Date Type Department Care Team (Latest Contact Info) Description 08/23/2023 6:45 PM EDT Anticoagulation Pharmacy Call Center [address] [place] [address] [facility] [address] [facility] [place] [address] Chronic atrial fibrillation (HCC)* Allergies Active Allergy Reactions Criticality Noted Date Comments Diclofenac Resin Rash Low 11/15/1999 Voltaren Atorvastatin Calcium Muscle pain 11/23/2018 Rosuvastatin Muscle pain 11/23/2018 documented as of this encounter (statuses as of 08/23/2023) Medications Medication Sig Dispensed Refills Start Date [...] Active Pylera 140-125-125 MG Oral Capsule (Bis Xfpkit-Nmnysdpv-Btsr acyc) 3 capsules 4 times/day x 10 [...] 25 MG Oral Tablet (Tenormin)Indication s:Atherosclerosis of [place] coronary artery of [place] heart without angina pectoris take 1/2 tablet [...] Nasal Suspension (Flonase)Indications :Allergic rhinitis Administer 1 [place] into nostril in the morning. 48 mL [...] 10 MG Oral Tablet (Deltasone)Indicatio ns:COPD exacerbation ([facility]) Take 4 [...] BEFORE BEDTIME 90 Capsule 2 4 Active documented as of this encounter (statuses as of 08/23/2023) Active Problems Problem Noted Date Diagnosed Date [...] situ 11/23/2018 Chronic atrial fibrillation 08/24/2018 Overview: [facility] Dr Armenta Diabetes mellitus, type [...] as of this encounter (statuses as of 08/23/2023) Resolved Problems Problem Noted Date Diagnosed Date [...] as of this encounter (statuses as of 08/23/2023) Immunizations Name Administration Dates Next Due COVID-19 mRNA, LNP-s, No Pre serve, 2-Dose Series (Moderna) 10/23/2020,06/23/2020 H1N1 2009 Influenza, IM 04/06/2009 Pneumococcal Conjugate Vacci ne, 20-valent ([id number]) 11/19/2021 Pneumococcal Polysaccharide PPV23 (Pneumovax) 02/09/2007 Seasonal [...] Notes * Ana Morel PHARM Tech - 08/23/2023 8:07 AM EDT Alan Pereira Jr. LVM to inform pt they are overdue for coag appt. Last INR 07/27. Will attempt gain in 1 weeks. Thank you, Ana Morel Nurse Receptionist Centralized Clinical Pharmacy Services (CCPS) ( Formerly Telepharmacy) 08/23/2023, 8:08 AM documented in this encounter Plan of Treatment Upcoming Encounters Date Type Department Care Team (Late st Contact Info) Description 08/29/2023 6:10 PM EDT [facility] [address] [place] [address] 08/31/2023 6:45 PM EDT Anticoagulation Pharmacy Call Center [address] [facility] [place]bell [address] [facility] [address] [facility] [place] [address] 10/25/2023 3:00 PM EDT Office Visit Family Medicine [facility] [place] [place] [phone] Brigitte Byrd MD [address] [place] [address] [place] Sotelo [address] Scheduled Procedures Name Priority Associated Diagnoses Date/Ti me COLONOSCOPY FLEXIBLE PROXIMAL DIAGNOSTIC Recall History of colon polyps Health Maintenance Due Date Last Done Comments DISCUSS TOBACCO CESSATION (REFER TO SMARTSET #7061) 1955 Zoster Vaccines (1 of 2) 02/22/1975 [...] Directives occurred with: Not Discussed Care Teams Building Operator Relationship Specialty Start Date End Date Brigitte Byrd MD [address] [place] [address] [place] Sotelo [address] PCP - General Family Medicine 11/23/18 documented as of this encounter
--- OUTSIDE RECORDS SUMMARY | 2024-01-09 00:13 | External Medical Summary | Summary of Care ---
Author Name Unknown Organization [facility] Address [address] [facility] [place] [address] Phone [phone] Care Team Providers Care Fun House Attendant Name Role Phone Brigitte Cm MD Primary Care Prov ider Reason for Visit * Reason Comments eRx-Medication Refill Encounter Details Date Type Department Care Team (Late st Contact Info) Description 08/16/2023 Refill Family Medicine [address] [phone] Brigitte Cm MD [address] [place], [place] [address]T[place] [address] Moderate episode of recurrent major depressive disorder (HCC); Cervicalgia Allergies Active Allergy Reactions Criticality Noted Date Comments Diclofenac Resin Rash Low 11/15/1999 Voltaren Atorvastatin Calcium Muscle pain 11/23/2018 Rosuvastatin Muscle pain 11/23/2018 documented as of this encounter (statuses as of 08/17/2023) Medications Medication Sig Dispensed Refills Start Date [...] Active Pylera 140-125-125 MG Oral Capsule (Bis Whzmnr-Jytgnrce-Zbs racyc) 3 capsules 4 times/day x 10 [...] 25 MG Oral Tablet (Tenormin)Indicatio ns:Atherosclerosis of [place] coronary artery of [place] heart without angina pectoris take 1/2 tablet [...] goal of less than 8.0% ([facility]),Diabetes mellitus, type II, insulin dependent ([facility]) inject 20 units subcutaneously every morning and inject 10 units every NIGHT 30 mL 3 09/24/19 23 Active Potassium Chloride Karis ER 10 MEQ Oral Tablet Extended ReleaseIndications: Hypopotassemia take 1 tablet by mouth every morning 90 Tablet 2 12/01/19 23 Active Fluticasone Propionate 50 MCG/ACT Nasal Suspension (Flonase)Indication s:Allergic rhinitis Administer 1 [place] into nostril in the morning. 48 mL 1 12/04/19 23 Active BD Pen Needle Short U/F 31G X 8 MM (Insulin Pen Needle)Indications: Type 2 diabetes mellitus with hemoglobin A1c goal of less than 8.0% ([facility]) USE 5 TIMES DAILY WITH [...] goal of less than 8.0% ([facility]),Diabetes mellitus, type II, insulin dependent ([facility]) USE TEST STRIPS TO TEST BLOOD SUGARS THREE TIMES DAILY 300 Strip 2 05/25/19 24 Active DULoxetine HCl 30 MG Oral Capsule Delayed Release Particles (Cymbalta)Indicatio ns:Moderate episode of recurrent major depressive disorder ([facility]) take 1 capsule by mouth every morning 90 Capsule 1 07/05/19 24 Active predniSONE 10 MG Oral Tablet (Deltasone)Indicati ons:COPD exacerbation ([facility]) Take 4 tabs for 2 days, 3 tabs for 2 days, 2 tabs for 2 days 1 tab for 2 days 20 Tablet 07/05/19 24 Active FreeStyle Test In Vitro Strip (Glucose Blood)Indications:T ype 2 diabetes mellitus with hemoglobin A1c goal of less than 8.0% ([facility]) Use to test 3 times a day. E11.9 300 Strip 2 07/21/19 24 Active HYDROcodone-Acetami nophen 10-325 MG Oral TabletIndications:C ervical stenosis of spinal canal,Lumbar degenerative disc disease Take 2.5 Tablets by mouth daily as needed for Pain, Severe. Take 0.5-1 tab every 8 hours as needed for severe pain. Max dose of 2.5 tablets per day. 75 Tablet 07/25/19 24 Active Albuterol Sulfate HFA 108 (90 Base) MCG/ACT Inhalation Aerosol SolutionIndications :Mild persistent asthma with acute exacerbation,COPD, group B, by GOLD 2017 classification ([facility]) inhale 1 TO 2 puffs [...] BEDTIME 90 Capsule 2 08/17/19 24 Active traZODone HCl 50 MG Oral Tablet (Desyrel)Indication s:Moderate episode of recurrent major depressive disorder (HCC) take 1 tablet by mouth BEFORE BEDTIME 90 Tablet 3 09/03/19 23 024 Discontinued Pregabalin 100 MG Oral Capsule (Lyrica)Indications :Cervicalgia take 1 capsule by mouth every morning and 1 capsule by mouth AT NOON and 1 capsule by mouth BEFORE BEDTIME 90 Capsule 2 03/29/19 24 024 Discontinued documented as of this encounter (statuses as of 08/17/2023) Active Problems Problem Noted Date Diagnosed Date Reactive arthritis of multiple sites 07/05/2023 Food insecurity 07/03/2023 Overview: [facility] Protocol Diabetic peripheral neuropathy 09/13/2022 prison current use of systemic steroids 06/20 History [...] situ 11/23/2018 Chronic atrial fibrillation 08/24/2018 Overview: [facility] Dr Armenta Diabetes mellitus, type [...] CORONARY ATHEROSCLEROSIS OF UNSPECIFIED TYPE OF VESSEL, [place] OR GRAFT Peptic ulcer Asthma, mild persistent HLA B27 (HLA B27 positive) documented as of this encounter (statuses as of 08/17/2023) Resolved Problems Problem Noted Date Diagnosed Date [...] as of this encounter (statuses as of 08/17/2023) Immunizations Name Administration Dates Next Due COVID-19 mRNA, LNP-s, No Pre serve, 2-Dose Series (Moderna) 10/23/2020,06/23/2020 H1N1 2009 Influenza, IM 04/06/2009 Pneumococcal Conjugate Vacci ne, 20-valent ([id number]) 11/19/2021 Pneumococcal Polysaccharide PPV23 (Pneumovax) 02/09/2007 Seasonal [...] Telephone Encounter - Brigitte Cm MD - 08/17/2023 10:09 AM EDTSigned Prescriptions: Disp Refills traZODone HCl 50 MG Oral Tablet (Desyrel) 90 Tab*1 Sig: take 1 tablet by mouth BEFORE BEDTIME Authorizing Provider: BRIGITTE CM Ordering User: ZAID MARINELLI Pregabalin 100 MG Oral Capsule (Lyrica) 90 Cap*2 Sig: take 1 capsule by mouth every morning and 1 capsule by mouth AT NOON and 1 capsule by mouth BEFORE BEDTIME Authorizing Provider: BRIGITTE CM * [facility] 9:17 AM EDTPending Prescriptions: Disp Refills Pregabalin 100 MG Oral Capsule (Lyrica) 90 Cap* Sig: take 1 capsule by mouth every morning and 1 capsule by mouth AT NOON and 1 capsule by mouth BEFORE BEDTIME Signed Prescriptions: Disp Refills traZODone HCl 50 MG Oral Tablet (Desyrel) 90 Tab*1 Sig: take 1 tablet by mouth BEFORE BEDTIME Authorizing Provider: BRIGITTE CM Ordering User: ZAID MARINELLI * Telephone Encounter - Zaid Marinelli [facility] - 08/17/2023 9:11 AM EDT I have reviewed the patients controlled substance dispensing history in the Prescription Drug Monitoring Program in compliance with the [facility] regulations before prescribing a controlled substance. PDMP checked on 08/17/2023. Pending Prescriptions: Disp Refills Pregabalin 100 MG Oral Capsule (Lyrica) [*90 Cap* Sig: take 1 capsule by mouth every morning and 1 capsule by mouth AT NOON and 1 capsule by mouth BEFORE BEDTIME Signed Prescriptions: Disp Refills traZODone HCl 50 MG Oral Tablet (Desyrel) 90 Tab*1 Sig: take 1 tablet by mouth BEFORE BEDTIME Authorizing Provider: BIRGITTE CM Ordering User: ZAID MARINELLI Last Visit: 03/15/2023 (in office), 10/05/2021 (telemedicine) Next Visit: 10/25/2023 Date medication was last filled: 07/04/23 Date medication is due for refill: 08/02/23 Pharmacy: [facility] #[id number] [facility] Is this request for a controlled [...] Review. Please approve if appropriate. Thank you, Zaid Marinelli, PharmD Clinical Pharmacist Centralized Clinical Pharmacy Services (CCPS) 08/17/23 9:12 AM [phone] documented in this encounter Plan of Treatment Upcoming Encounters Date Type Department Care Team (Late st Contact Info) Description 08/23/2023 6:45 PM EDT Anticoagulation Pharmacy Call Center [address] [place] [address] [facility] [address] [facility] [address] 08/29/2023 6:10 PM EDT Pharmacy Pharmacy, [facility] [address] [facility] [place] [address] [facility] 132 [facility] [place] Juarez [address] 10/25/2023 3:00 PM EDT Office Visit Family [address] [phone] Brigitte Cm, MD [address] [place] [address] [place] Sotelo [address] Scheduled Procedures Name Priority Associated Diagnoses Date/Ti me COLONOSCOPY FLEXIBLE PROXIMAL DIAGNOSTIC Recall History of colon polyps Health Maintenance Due Date Last Done Comments DISCUSS TOBACCO CESSATION (REFER TO SMARTSET #5083) 1955 Zoster Vaccines (1 of 2) 02/22/1975 [...] episode of recurrent major depressive disorder (HCC) Cervicalgia documented in this encounter Advance Directives [...] Directives occurred with: Not Discussed Care Teams Fun House Attendant Relationship Specialty Start Date End Date Brigitte Cm MD [address] [place] [address] [place] Sotelo [address] PCP - General Family Medicine 11/23/18 documented as of this encounter
--- OUTSIDE RECORDS SUMMARY | 2024-01-09 00:13 | External Medical Summary | Summary of Care ---
Author Name Unknown Organization [facility] Address [address] [facility] [place] [address] Phone [phone] Care Team Providers Care Dye Machine Tender Name Role Phone Brigitte Byrd MD Primary Care Prov ider Reason for Visit * Reason Comments eRx-Medication Refill Encounter Details Date Type Department Care Team (Late st Contact Info) Description 08/16/2023 Refill Rheumatology [address] [place] [phone] Demetrius Glasgow MD [facility] [facility] [place] [address] HLA B27 (HLA B27 positive) Allergies Active Allergy Reactions Criticality Noted Date Comments Diclofenac Resin Rash Low 11/15/1999 Voltaren Atorvastatin Calcium Muscle pain 11/23/2018 Rosuvastatin Muscle pain 11/23/2018 documented as of this encounter (statuses as of 08/28/2023) Medications Medication Sig Dispensed Refills Start Date [...] Active Pylera 140-125-125 MG Oral Capsule (Bis Odanrb-Wxowpejl-Btj racyc) 3 capsules 4 times/day x 10 [...] 25 MG Oral Tablet (Tenormin)Indicatio ns:Atherosclerosis of [place] coronary artery of [place] heart without angina pectoris take 1/2 tablet [...] Nasal Suspension (Flonase)Indication s:Allergic rhinitis Administer 1 [place] into nostril in the morning. 48 mL [...] type II, insulin dependent ([facility]) USE TEST STRIPS TO TEST BLOOD SUGARS THREE TIMES DAILY 300 Strip 2 4 Active DULoxetine HCl 30 MG Oral Capsule Delayed Release Particles (Cymbalta)Indicatio ns:Moderate episode of recurrent major depressive disorder ([facility]) take 1 capsule by mouth every morning 90 Capsule 1 4 Active predniSONE 10 MG Oral Tablet (Deltasone)Indicati ons:COPD exacerbation ([facility]) Take 4 tabs for 2 [...] for anxiety 60 Tablet 2 4 Active HYDROcodone-Acetami nophen 10-325 MG Oral TabletIndications:C ervical stenosis of spinal canal,Lumbar degenerative disc disease Take 2.5 Tablets by mouth daily as needed for Pain, Severe. Take 0.5-1 tab every 8 hours as needed for severe pain. Max dose of 2.5 tablets per day. 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 06/20 [...] situ 11/23/2018 Chronic atrial fibrillation 08/24/2018 Overview: [facility] Dr Armenta Diabetes mellitus, type [...] CORONARY ATHEROSCLEROSIS OF UNSPECIFIED TYPE OF VESSEL, [place] OR GRAFT Peptic ulcer Asthma, mild persistent HLA B27 (HLA B27 positive) documented as of this encounter (statuses as of 08/28/2023) Resolved Problems Problem Noted Date Diagnosed Date [...] as of this encounter (statuses as of 08/28/2023) Immunizations Name Administration Dates Next Due COVID-19 mRNA, LNP-s, No Pre serve, 2-Dose Series (Moderna) 10/23/2020,06/23/2020 H1N1 2009 Influenza, IM 04/06/2009 Pneumococcal Conjugate Vacci ne, 20-valent ([id number]) 11/19/2021 Pneumococcal Polysaccharide PPV23 (Pneumovax) 02/09/2007 Seasonal [...] Plaquenil or not * Telephone Encounter - Dolores Manning [facility] - 08/25/2023 2:27 PM EDTPending Prescriptions: Disp Refills Hydroxychloroquine Sulfate 200 MG Oral Tab*180 Ta*0 Sig: take 2 tablets by mouth at bedtime * Telephone Encounter - Dolores Manning [facility] - 08/25/2023 2:21 PM EDT Rheumatology: Refill [...] be refilled or not at this time. Dolores Manning RPh [facility] Clinical Pharmacist Rheumatology Department 08/25/2023,2:21 PM * Telephone Encounter - Dolores Manning [facility] - 08/22/2023 4:01 PM EDTPending Prescriptions: Disp Refills Hydroxychloroquine Sulfate 200 MG Oral Tab*180 Ta*3 Sig: Take 2 Tablets by mouth at bedtime. * Telephone Encounter - Dolores Manning [facility] - 08/22/2023 3:53 PM EDT Pt past [...] available pharmacist. Advised patient to please call [phone]. Thank you, Dolores Manning, PharmD Clinical Pharmacist Centralized Clinical Pharmacy Services (CCPS) (formerly Telepharmacy) [phone] 08/22/2023, 3:57 PM documented in this encounter Plan of Treatment Upcoming Encounters Date Type Department Care Team (Late st Contact Info) Description 08/31/2023 1:00 PM EDT Telemedicine Pharmacy, [facility] [address] [facility] [place] [address] [facility] [place] [address] 08/31/2023 6:45 PM EDT Anticoagulation Pharmacy Call Center [address] [place] [address] [facility], [facility] 58 60 [facility] [place] [address] 10/25/2023 3:00 PM EDT Office Visit Family Medicine [address] [place] [phone] Brigitte Byrd MD [address] [place] [address] [place] [address] Scheduled Procedures Name Priority Associated Diagnoses Date/Ti me COLONOSCOPY FLEXIBLE PROXIMAL DIAGNOSTIC Recall History of colon polyps Health Maintenance Due Date Last Done Comments DISCUSS TOBACCO CESSATION (REFER TO SMARTSET #2140) 1955 Zoster Vaccines (1 of 2) 02/22/1975 [...] 06/12/2019, Additional history exists HbA1c 09/14/2023 03/15/2023, 06/2 03/2022, 05/27/2021, Additional history exists Albumin/Creatinine Ratio [...] Directives occurred with: Not Discussed Care Teams Dye Machine Tender Relationship Specialty Start Date End Date Brigitte Byrd MD [address] [place] [address] [place] [phone] PCP - General Family Medicine 11/23/18 documented as of this encounter
--- OUTSIDE RECORDS SUMMARY | 2024-01-09 00:13 | External Medical Summary | Summary of Care ---
Author Name Unknown Organization [facility] Address [address] [facility] [place] [address] Phone [phone] Care Team Providers Care Route Rider Name Role Phone Brigitte Cm MD Primary Care Prov ider Reason for Visit * Reason Comments eRx-Medication Refill Encounter Details Date Type Department Care Team (Late st Contact Info) Description 08/06/2023 Refill Family Medicine [address] [phone] Brigitte Cm MD [address] [place], [place] [address] [address] PTSD (post-traumatic stress disorder); Diabetic peripheral neuropathy (HCC) Allergies Active Allergy Reactions Criticality Noted Date Comments Diclofenac Resin Rash Low 11/15/1999 Voltaren Atorvastatin Calcium Muscle pain 11/23/2018 Rosuvastatin Muscle pain 11/23/2018 documented as of this encounter (statuses as of 08/08/2023) Medications Medication Sig Dispensed Refills Start Date End Date Status MULTIVITAMINS PO TABS one tab daily 0 Active Insulin Syringe-Needle U-100 30G X 1/2" 0.3 ML MISCIndications:DM type 2 nursing care encounter (HCC) Use as directed. 1 Box 11 01/06/20 15 Active isosorbide dinitrate (ISORDIL) 10 MG Tablet Take 1 Tablet by mouth in the morning. 0 08/25/19 19 Active furosemide (LASIX) 20 MG Tablet Take 1 Tablet by mouth in the morning. 0 Active magnesium citrate solutionIndications :Drug-induced constipation Take [...] Tablet by mouth in the morning. 0 08/05/19 21 Active Ipratropium-Albuter ol 0.5-2.5 (3) [...] on insulin Dx E11.9 1 Kit 0 04/30/19 22 Active Pylera 140-125-125 MG Oral Capsule (Bis Xvakyz-Kgfcplyq-Tpj racyc) 3 capsules 4 times/day x 10 days 120 Capsule 0 05/05/19 22 Active Hydroxychloroquine Sulfate 200 MG [...] 160) 45 mL 3 05/24/19 23 Active traZODone HCl 50 MG Oral Tablet (Desyrel)Indication s:Moderate episode of recurrent major depressive disorder (HCC) take 1 tablet by mouth BEFORE BEDTIME 90 Tablet 3 09/03/19 23 Active Atenolol 25 MG Oral Tablet (Tenormin)Indicatio ns:Atherosclerosis of [place] coronary artery of [place] heart without angina pectoris take 1/2 tablet [...] Nasal Suspension (Flonase)Indication s:Allergic rhinitis Administer 1 [place] into nostril in the morning. 48 mL [...] DAILY 30 Capsule 5 02/29/20 23 Active Pregabalin 100 MG Oral Capsule (Lyrica)Indications :Cervicalgia take 1 capsule by mouth every morning and 1 capsule by mouth AT NOON and 1 capsule by mouth BEFORE BEDTIME 90 Capsule 2 03/29/19 24 Active Baclofen 10 MG Oral Tablet (Lioresal)Indicatio [...] tab for 2 days 20 Tablet 0 07/05/19 24 Active FreeStyle Test In Vitro [...] 2.5 tablets per day. 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 use of 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 steroids 06/20 History [...] situ 11/23/2018 Chronic atrial fibrillation 08/24/2018 Overview: [facility] Dr Armenta Diabetes mellitus, type [...] CORONARY ATHEROSCLEROSIS OF UNSPECIFIED TYPE OF VESSEL, [place] OR GRAFT Peptic ulcer Asthma, mild persistent HLA B27 (HLA B27 positive) documented as of this encounter (statuses as of 08/08/2023) Resolved Problems Problem Noted Date Diagnosed Date [...] as of this encounter (statuses as of 08/08/2023) Immunizations Name Administration Dates Next Due COVID-19 mRNA, LNP-s, No Pre serve, 2-Dose Series (Moderna) 10/23/2020,06/23/2020 H1N1 2008 Influenza, IM 04/06/2009 Pneumococcal Conjugate Vacci ne, 20-valent ([id number]) 11/19/2021 Pneumococcal Polysaccharide PPV23 (Pneumovax) 02/09/2007 Seasonal [...] Telephone Encounter - Brigitte Cm MD - 08/08/2023 8:57 AM EDT Signed Prescriptions: Disp Refills LORazepam 0.5 MG Oral Tablet (Ativan) 60 Tab*2 Sig: take 1 tablet by mouth twice a day if needed for anxiety Authorizing Provider: BRIGITTE CM * Telephone Encounter - Rommel Presley RPh - 08/08/2023 8:19 AM EDT Pending Prescriptions: Disp Refills LORazepam 0.5 MG Oral Tablet (Ativan) 60 Tab*2 Sig: take 1 tablet by mouth twice a day if needed for anxiety * Telephone Encounter - Rommel Presleykhija, [facility] - 08/08/2023 8:16 AM EDT I have reviewed the patients controlled substance dispensing history in the Prescription Drug Monitoring Program in compliance with the [facility] regulations before prescribing a controlled substance. PDMP checked on 08/08/2023. Pending Prescriptions: Disp Refills LORazepam 0.5 MG Oral Tablet (Ativan) [Ph*60 Tab* Sig: take 1 tablet by mouth twice a day if needed for anxiety Last Visit: 03/15/2023 (in office), 10/05/2021 (telemedicine) Next Visit: 10/25/2023 Date medication was last filled: 07/08 Date medication is due for refill: 08/06 Pharmacy: [facility] #[id number] [facility] Is this request for a controlled substance? [...] Results Review. Please approve if appropriate. Thanks, Rommel Presley, PharmD Clinical Pharmacist Centralized Clinical Pharmacy Services (CCPS) (formerly Telepharmacy) [phone] 08/08/2023,8:17 AM documented in this encounter Plan of Treatment Upcoming Encounters Date Type Department Care Team (Late st Contact Info) Description 08/16/2023 6:30 AM EDT Anticoagulation Pharmacy Call Center [address] [facility] [place] [address] Ccps, [facility] 58 60 [facility] [place] [address] 08/29/2023 6:10 PM EDT Pharmacy Pharmacy, [facility] 132 [facility] [address] [facility] 132 [facility] [place] [address] 10/25/2023 3:00 PM EDT Office Visit Family Medicine [address] [phone] Brigitte Cm MD [address] [place] [address] [place] [address] Scheduled Orders Name Type Priority Associated Diagnoses Orde r Schedule ALBUMIN / CREATININE RATIO, URINE Lab Routine Diabetic peripheral neuropathy (HCC) Expected: 08/08/2023, Expires: 08/07/2024 Scheduled Procedures Name Priority Associated Diagnoses Date/Ti [...] PTSD (post-traumatic stress disorder) Posttraumatic stress disorder Diabetic peripheral neuropathy (HCC) Type II or unspecified type diabetes mellitus with neurological manifestations, not stated as uncontrolled documented in this encounter Advance Directives Latest [...] Directives occurred with: Not Discussed Care Teams Route Rider Relationship Specialty Start Date End Date Brigitte Cm MD [address] [place] [address] [place] [address] PCP - General Family Medicine 11/23/18 documented as of this encounter
--- OUTSIDE RECORDS SUMMARY | 2024-01-09 00:13 | External Medical Summary | Summary of Care ---
Author Name Unknown Organization [facility] Address [address] [facility] [place] [address] Phone [phone] Care Team Providers Care Qm Consultant Name Role Phone Brigitte Byrd MD Primary Care Prov ider Encounter Details Date Type Department Care Team (Late st Contact Info) Description 07/28/2023 Result Scan Unspecified Department Dorinda Spears, [facility] [address] [place] [address] <No scans attached> Allergies Active Allergy Reactions [...] (3) MG/3ML Inhalation Solution (Duoneb)Indications: COPD exacerbation ([facility]) INHALE 1 VIAL VIA NEBILIZER [...] Active Pylera 140-125-125 MG Oral Capsule (Bis Ebrzee-Zntaewli-Uoii acyc) 3 capsules 4 times/day x 10 [...] 8.0% ([facility]) inject 20 units WITH BREAKFAST, 10 UNITS WITH MIDDAY SNACK, 10 UNITS WITH SUPPER (CF:1:40 OVER 160) 45 mL 3 3 Active traZODone HCl 50 MG Oral Tablet (Desyrel)Indications :Moderate episode of recurrent major depressive disorder (HCC) take 1 tablet by mouth BEFORE BEDTIME 90 Tablet 3 3 Active Atenolol 25 MG Oral Tablet (Tenormin)Indication s:Atherosclerosis of [place] coronary artery of [place] heart without angina pectoris take 1/2 tablet [...] Nasal Suspension (Flonase)Indications :Allergic rhinitis Administer 1 [place] into nostril in the morning. 48 mL 1 3 Active BD Pen Needle Short U/F 31G X 8 MM (Insulin Pen Needle)Indications:T ype 2 diabetes mellitus with hemoglobin A1c goal of less than 8.0% ([facility]) USE 5 TIMES DAILY WITH [...] situ 11/23/2018 Chronic atrial fibrillation 08/24/2018 Overview: [facility] Dr Armenta Diabetes mellitus, type [...] CORONARY ATHEROSCLEROSIS OF UNSPECIFIED TYPE OF VESSEL, [place] OR GRAFT Peptic ulcer Asthma, mild persistent [...] IM 04/06/2009 Pneumococcal Conjugate Vacci ne, 20-valent ([id number]) 11/19/2021 Pneumococcal Polysaccharide PPV23 (Pneumovax) 02/09/2007 Seasonal [...] Description 08/01/2023 1:00 PM EDT Telemedicine Pharmacy, [facility] 132 [facility] [place] [address] [facility] 132 [facility] [place] [address] 10/25/2023 3:00 PM EDT Office Visit Family Medicine [address] [place] [phone] Brigitte Byrd MD [address] [place] [address] [place] [address] Scheduled Procedures Name Priority Associated Diagnoses Date/Ti me COLONOSCOPY FLEXIBLE PROXIMAL DIAGNOSTIC Recall History of colon polyps Health Maintenance Due Date Last Done Comments DISCUSS TOBACCO CESSATION (REFER TO SMARTSET #7047) 1955 Zoster Vaccines (1 of 2) 02/22/1975 [...] Date/Time Associated Diagnosis Comments OUTSIDE LAB RESULTS 07/28/2023 documented in this encounter Results * OUTSIDE LAB RESULTS (07/28/2023) 07/28/2023 Dorinda Spears [facility] LABORATORY documented in this encounter Advance Directives Latest [...] Directives occurred with: Not Discussed Care Teams Qm Consultant Relationship Specialty Start Date End Date Brigitte Byrd MD [address] [place] [address] [place] [phone] PCP - General Family Medicine 11/23/18 documented as of this encounter
--- OUTSIDE RECORDS SUMMARY | 2024-01-09 00:14 | External Medical Summary | Summary of Care ---
Author Name Unknown Organization [facility] Address [address] [facility] [place] [address] Phone [phone] Care Team Providers Care Biological Photographer Name Role Phone Brigitte Byrd MD Primary Care Prov ider Reason for Visit * Reason Comments Appointment Encounter Details Date Type Department Care Team (Late st Contact Info) Description 07/18/2023 6:10 PM EDT Pharmacy Pharmacy, [facility] [address] [facility] 132 [facility] [place] [address] Chronic pain syndrome* Allergies Active Allergy Reactions Criticality Noted Date Comments Diclofenac Resin Rash Low 11/15/1999 Voltaren Atorvastatin Calcium Muscle pain 11/23/2018 Rosuvastatin Muscle pain 11/23/2018 documented as of this encounter (statuses as of 07/18/2023) Medications Medication Sig Dispensed Refills Start Date [...] Active Pylera 140-125-125 MG Oral Capsule (Bis Ivtxml-Tozwowgw-Aysz acyc) 3 capsules 4 times/day x 10 [...] 25 MG Oral Tablet (Tenormin)Indication s:Atherosclerosis of [place] coronary artery of [place] heart without angina pectoris take 1/2 tablet [...] Nasal Suspension (Flonase)Indications :Allergic rhinitis Administer 1 [place] into nostril in the morning. 48 mL [...] every morning 90 Tablet 3 4 Active Albuterol Sulfate HFA 108 (90 Base) MCG/ACT Inhalation Aerosol SolutionIndications: Mild persistent asthma with acute exacerbation,COPD, group B, by GOLD 2017 classification ([facility]) inhale 1 TO 2 puffs by mouth and INTO THE LUNGS every 2 hours if needed 8.5 g 5 4 Active Trelegy Ellipta 100-62.5-25 MCG/ACT Aerosol [...] less than 8.0% ([facility]) E11.9 300 Strip 2 4 Active HYDROcodone-Acetamin ophen 10-325 MG Oral TabletIndications:Ce rvical stenosis of spinal canal,Lumbar degenerative disc disease Take 2.5 Tablets by mouth daily as needed for Pain, Severe. Take 0.5-1 tab every 8 hours as needed for severe pain. Max dose of 2.5 tablets per day. 75 Tablet 0 4 Active DULoxetine HCl 30 MG Oral [...] 2 days 20 Tablet 0 4 Active documented as of this encounter (statuses as of 07/18/2023) Active Problems Problem Noted Date Diagnosed Date [...] situ 11/23/2018 Chronic atrial fibrillation 08/24/2018 Overview: [facility] Dr Armenta Diabetes mellitus, type [...] CORONARY ATHEROSCLEROSIS OF UNSPECIFIED TYPE OF VESSEL, [place] OR GRAFT Peptic ulcer Asthma, mild persistent HLA B27 (HLA B27 positive) documented as of this encounter (statuses as of 07/18/2023) Resolved Problems Problem Noted Date Diagnosed Date [...] as of this encounter (statuses as of 07/18/2023) Immunizations Name Administration Dates Next Due COVID-19 mRNA, LNP-s, No Pre serve, 2-Dose Series (Moderna) 10/23/2020,06/23/2020 H1N1 2009 Influenza, IM 04/06/2009 Pneumococcal Conjugate Vacci ne, 20-valent ([id number]) 11/19/2021 Pneumococcal Polysaccharide PPV23 (Pneumovax) 02/09/2007 Seasonal [...] this encounter Progress Notes * Kayy Elliott 7th grade teacher - 07/18/2023 8:54 AM EDT Patient Phone Numbers Left message on patients answering machine to schedule [facility] appointment for pain management. [facility] message sent --no Clinic will follow up again in 4 week(s). [Attempt # 3] Thank you, Kayy Elliott Set Up Mechanic Coating Machines Centralized Clinical Pharmacy Services (CCPS) 07/18/2023,8:54 AM documented in this encounter Plan of Treatment Upcoming Encounters Date Type Department Care Team (Late st Contact Info) Description 07/25/2023 6:30 AM EDT Anticoagulation Pharmacy Call Center [address] [facility] [place] [address] C[facility]ps, [facility] 58 60 [facility] [place] [address] 08/15/2023 6:10 PM EDT Pharmacy Pharmacy, [facility] 132 [facility] [place] [address] [place] [address] 10/25/2023 3:00 PM EDT Office Visit Family Medicine [address] [place] [phone] Brigitte Byrd MD [address] [place] [address] [place] [address] Scheduled Procedures Name Priority Associated Diagnoses Date/Ti me COLONOSCOPY FLEXIBLE PROXIMAL DIAGNOSTIC Recall History of colon polyps Health Maintenance Due Date Last Done Comments DISCUSS TOBACCO CESSATION (REFER TO SMARTSET #7520) 1955 Zoster Vaccines (1 of 2) 02/22/1975 Depression, Most Recent Score >= 10 (will [...] 05/24/2024 05/24/2023, 10/25, 09/20/2022, Additional history exists COLONOSCOPY-EVERY 5 YRS AGES 18-100 08/12/2026 08/12/2021, 10/10/2013, 08/04/2009 DTaP,Tdap,and Td Vaccines (3 - Td or Tdap) 02/17/2028 02/16/2018, 08/13/2007 Lung Cancer Screening Completed 07/10/2017 , 09/08/2016, 05/17/2016, Additional history exists Pneumococcal Vaccine: 65+ Years Completed 11/19/2021, 02/09/2007 [...] Primary documented in this encounter Advance Directives Latest [...] Directives occurred with: Not Discussed Care Teams Biological Photographer Relationship Specialty Start Date End Date Brigitte Byrd MD [address] [place] [address] [place] [address] PCP - General Family Medicine 11/23/18 documented as of this encounter
--- OUTSIDE RECORDS SUMMARY | 2024-01-09 00:14 | External Medical Summary | Summary of Care ---
Author Name Unknown Organization [facility] Address [address] [facility] [place] [address] Phone [phone] Care Team Providers Care Smoke Control Supervisor Name Role Phone Brigitte Cm MD Primary Care Prov ider Reason for Visit * Reason Onset Date Comments Medication Refill 07/23/2023 Encounter Details Date Type Department Care Team (Late st Contact Info) Description 07/23/2023 Refill Family Medicine [address] [phone] Brigitte Cm MD [address] [place], [place] [address]T[place] fre[place] [address] Cervical stenosis of spinal canal; Lumbar degenerative disc disease Allergies Active Allergy Reactions Criticality Noted Date Comments Diclofenac Resin Rash Low 11/15/1999 Voltaren Atorvastatin Calcium Muscle pain 11/23/2018 Rosuvastatin Muscle pain 11/23/2018 documented as of this encounter (statuses as of 07/25/2023) Medications Medication Sig Dispensed Refills Start Date [...] mouth in the morning. 0 1 Active Ipratropium-Albuter ol 0.5-2.5 (3) MG/3ML [...] Active Pylera 140-125-125 MG Oral Capsule (Bis Vtwmyz-Cpaahnzg-Tjz racyc) 3 capsules 4 times/day x 10 [...] 25 MG Oral Tablet (Tenormin)Indicatio ns:Atherosclerosis of [place] coronary artery of [place] heart without angina pectoris take 1/2 tablet [...] Nasal Suspension (Flonase)Indication s:Allergic rhinitis Administer [address] nostril in the morning. 48 mL [...] 3 Active Pregabalin 100 MG Oral Capsule (Lyrica)Indications :Cervicalgia take 1 capsule by mouth every morning and 1 capsule by mouth AT NOON and 1 capsule by mouth BEFORE BEDTIME 90 Capsule 2 4 Active Baclofen 10 MG Oral Tablet (Lioresal)Indicatio [...] day. E11.9 300 Strip 2 4 Active HYDROcodone-Acetami nophen 10-325 MG [...] tablets per day. 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 06/20 History [...] situ 11/23/2018 Chronic atrial fibrillation 08/24/2018 Overview: [facility] Dr Armenta Diabetes mellitus, type [...] CORONARY ATHEROSCLEROSIS OF UNSPECIFIED TYPE OF VESSEL, [place] OR GRAFT Peptic ulcer Asthma, mild persistent HLA B27 (HLA B27 positive) documented as of this encounter (statuses as of 07/25/2023) Resolved Problems Problem Noted Date Diagnosed Date [...] as of this encounter (statuses as of 07/25/2023) Immunizations Name Administration Dates Next Due COVID-19 mRNA, LNP-s, No Pre serve, 2-Dose Series (Moderna) 10/23/2020,06/23/2020 H1N1 2009 Influenza, IM 04/06/2009 Pneumococcal Conjugate Vacci ne, 20-valent ([id number]) 11/19/2021 Pneumococcal Polysaccharide PPV23 (Pneumovax) 02/09/2007 Seasonal [...] Telephone Encounter - Brigitte Cm MD - 07/25/2023 4:40 PM EDT Signed Prescriptions: Disp Refills HYDROcodone-Acetaminophen 10-325 MG Oral T*75 Tab*0 Sig: Take 2.5 Tablets by mouth daily as needed for Pain, Severe. Take 0.5-1 tab every 8 hours as needed for severe pain. Max dose of 2.5 tablets per day. Authorizing Provider: BRIGITTE CM * Telephone Encounter - Elo Andrews RP - 07/25/2023 8:48 AM EDTPending Prescriptions: Disp Refills HYDROcodone-Acetaminophen 10-325 MG Oral T*75 Tab*0 Sig: Take 2.5 Tablets by mouth daily as needed for Pain, Severe. Take 0.5-1 tab every 8 hours as needed for severe pain. Max dose of 2.5 tablets per day. * Telephone Encounter - Elo Andrews RPh - 07/25/2023 8:48 AM EDT I have reviewed the patients controlled substance dispensing history in the Prescription Drug Monitoring Program in compliance with the [facility] regulations before prescribing a controlled substance. PDMP checked on 07/25/2023. Pending Prescriptions: Disp Refills HYDROcodone-Acetaminophen 10-325 MG Oral *75 Tab*0 Sig: Take 2.5 Tablets by mouth daily as needed for Pain, Severe. Take 0.5-1 tab every 8 hours as needed for severe pain. Max dose of 2.5 tablets per day. Last Visit: 03/15/2023 (in office), 10/05/2021 (telemedicine) Next Visit: 10/25/2023 Date medication was last filled: 06/15/23 Date medication is due for refill: 07/14/23 Pharmacy: [facility] #[id number] [facility] Is this request [...] in Results Review. Please approve if appropriate. Elo Corbin Clinical Pharmacist [facility] Services ([facility]PS) (Formerly Telepharmacy) [phone] 07/25/2023, 8:48 AM documented in this encounter Plan of Treatment Upcoming Encounters Date Type Department Care Team (Late st Contact Info) Description 08/01/2023 6:30 AM EDT Anticoagulation Pharmacy Call Center [address] [facility] [place] [address] [facility] [place] [address] [address] [facility] [place] [address] 08/01/2023 1:00 PM EDT Telemedicine Pharmacy, [facility] [address] [facility] [place]W [address] [facility] 132 [facility] [place] [address] 10/25/2023 3:00 PM EDT Office Visit Family Medicine [address] [place] [phone] Brigitte Cm MD [address] [place] [address] [place]otelo [phone] Scheduled Procedures Name Priority Associated Diagnoses Date/Ti me COLONOSCOPY FLEXIBLE PROXIMAL DIAGNOSTIC Recall History of colon polyps Health Maintenance Due Date Last Done Comments DISCUSS TOBACCO CESSATION (REFER TO SMARTSET #6754) 1955 Zoster Vaccines (1 of 2) 02/22/1975 [...] disc documented in this encounter Advance Directives Latest [...] Directives occurred with: Not Discussed Care Teams Smoke Control Supervisor Relationship Specialty Start Date End Date Brigitte Cm MD [address] [place] [address] [place] [phone] PCP - General Family Medicine 11/23/18 documented as of this encounter
--- OUTSIDE RECORDS SUMMARY | 2024-01-09 00:14 | External Medical Summary | Summary of Care ---
Author Name Unknown Organization [facility] Address [address] [facility] [place] [address] Phone [phone] Care Team Providers Care Leadlighter Name Role Phone Brigitte Byrd MD Primary Care Prov ider Reason for Visit * Reason Onset Date Comments Medication Refill 07/20/2023 Encounter Details Date Type Department Care Team (Late st Contact Info) Description 07/20/2023 Refill Family Medicine [address] [phone] Robbin Chaidez PA-C [address] [place] [address] [place]elo [address] Type 2 diabetes mellitus with hemoglobin A1c goal of less than 8.0% ([facility]) Allergies Active Allergy Reactions Criticality Noted Date Comments Diclofenac Resin Rash Low 11/15/1999 Voltaren Atorvastatin Calcium Muscle pain 11/23/2018 Rosuvastatin Muscle pain 11/23/2018 documented as of this encounter (statuses as of 07/21/2023) Medications Medication Sig Dispensed Refills Start Date End Date Status MULTIVITAMINS PO TABS one tab daily 0 Active Insulin Syringe-Needle U-100 30G X 1/2" 0.3 ML MISCIndications:DM type 2 nursing care encounter ([facility]) Use as directed. [address] 5 [...] Active Pylera 140-125-125 MG Oral Capsule (Bis Qpvozw-Yezrjikr-Sga racyc) 3 capsules 4 times/day x 10 [...] 25 MG Oral Tablet (Tenormin)Indicatio ns:Atherosclerosis of [place] coronary artery of [place] heart without angina pectoris take 1/2 tablet [...] than 8.0% ([facility]),Diabetes mellitus, type II, insulin dependent ([facility]) inject 20 units subcutaneously every morning and inject 10 units every NIGHT 30 mL 3 3 Active Potassium Chloride Karis ER 10 MEQ Oral Tablet Extended ReleaseIndications: Hypopotassemia take 1 tablet by mouth every morning 90 Tablet 2 3 Active Fluticasone Propionate 50 MCG/ACT Nasal Suspension (Flonase)Indication s:Allergic rhinitis Administer 1 [place] into nostril in the morning. 48 mL [...] than 8.0% ([facility]),Diabetes mellitus, type II, insulin dependent ([facility]) USE TEST STRIPS TO TEST BLOOD SUGARS THREE TIMES DAILY 300 Strip 2 4 Active HYDROcodone-Acetami nophen [...] ns:Moderate episode of recurrent major depressive disorder ([facility]) take 1 capsule by mouth every [...] day. 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 06/20 [...] situ 11/23/2018 Chronic atrial fibrillation 08/24/2018 Overview: [facility] Dr Armenta Diabetes mellitus, [...] CORONARY ATHEROSCLEROSIS OF UNSPECIFIED TYPE OF VESSEL, [place] OR GRAFT Peptic ulcer Asthma, mild persistent HLA B27 (HLA B27 positive) documented as of this encounter (statuses as of 07/21/2023) Resolved Problems Problem Noted Date Diagnosed Date [...] as of this encounter (statuses as of 07/21/2023) Immunizations Name Administration Dates Next Due COVID-19 mRNA, LNP-s, No Pre serve, 2-Dose Series (Moderna) 10/23/2020,06/23/2020 H1N1 2008 Influenza, IM 04/06/2009 Pneumococcal Conjugate Vacci ne, 20-valent ([id number]) 11/19/2021 Pneumococcal Polysaccharide PPV23 (Pneumovax) 02/09/2007 Seasonal [...] Notes * Telephone Encounter - Cuca Ricardo RP - 07/21/2023 2:40 PM EDTSigned Prescriptions: Disp Refills FreeStyle Test In Vitro Strip (Glucose Blo*300 St*2 Sig: Use to test 3 times a day. E11.9Authorizing Provider: ROBBIN CHAIDEZ User: CUCA RICARDO----- documented in this encounter Plan of Treatment Upcoming Encounters Date Type Department Care Team (Late st Contact Info) Description 07/25/2023 6:30 AM EDT Anticoagulation Pharmacy Call Center WB [address] [facility] [place] [address] [facility] 58 60 [facility] [place] [address] 08/01/2023 1:00 PM EDT Telemedicine Pharmacy, [facility] 132 [facility] [place] [address] [facility] 132 [facility] [address] 10/25/2023 3:00 PM EDT Office Visit Family Medicine [address] [place] [phone] Brigitte Byrd MD [address] [place] [address] [place] [address] Scheduled Procedures Name Priority Associated Diagnoses Date/Ti me COLONOSCOPY FLEXIBLE PROXIMAL DIAGNOSTIC Recall History of colon polyps Health Maintenance Due Date Last Done Comments DISCUSS TOBACCO CESSATION (REFER TO SMARTSET #9097) 1955 Zoster Vaccines (1 of 2) 02/22/1975 [...] (HCC) documented in this encounter Advance Directives Latest [...] Directives occurred with: Not Discussed Care Teams Leadlighter Relationship Specialty Start Date End Date Brigitte Byrd MD [address] [place] [address] [place] [address] PCP - General Family Medicine 11/23/18 documented as of this encounter
--- OUTSIDE RECORDS SUMMARY | 2024-01-09 00:14 | External Medical Summary | Summary of Care ---
Author Name Unknown Organization [facility] Address [address] [facility] [place] [address] Phone [phone] Care Team Providers Care Wrap Knitting Machine Operator Name Role Phone Brigitte Cm MD Primary Care Prov ider Reason for Visit * Reason Comments eRx-Medication Refill Encounter Details Date Type Department Care Team (Late st Contact Info) Description 07/23/2023 Refill Family Medicine [address] [phone] Brigitte Cm MD [address] [place], [place] [address] [address] Mild persistent asthma with acute exacerbation; COPD, group B, by GOLD 2017 classification ([facility]) Allergies Active Allergy Reactions Criticality Noted Date Comments Diclofenac Resin Rash Low 11/15/1999 Voltaren Atorvastatin Calcium Muscle pain 11/23/2018 Rosuvastatin Muscle pain 11/23/2018 documented as of this encounter (statuses as of 07/24/2023) Medications Medication Sig Dispensed Refills Start Date End Date Status MULTIVITAMINS PO TABS one tab daily 0 Active Insulin Syringe-Needle U-100 30G X 1/2" 0.3 ML MISCIndications:DM type 2 nursing care encounter ([facility]) Use as directed. [address] [...] Active Pylera 140-125-125 MG Oral Capsule (Bis Skrrna-Gwfqsfcc-Anr racyc) 3 capsules 4 times/day x 10 [...] MG Oral Tablet (Tenormin)Indicatio ns:Atherosclerosis of [place] coronary artery of [place] heart without angina pectoris take 1/2 tablet [...] Nasal Suspension (Flonase)Indication s:Allergic rhinitis Administer 1 [place] into nostril in the morning. 48 mL 1 12/04/19 23 Active BD Pen Needle Short U/F 31G X 8 MM (Insulin Pen Needle)Indications: Type 2 diabetes mellitus with hemoglobin A1c goal of less than 8.0% ([facility]) USE 5 TIMES DAILY WITH [...] 911. 25 Tablet 3 05/03/19 24 Active LORazepam 0.5 MG Oral Tablet (Ativan)Indications :PTSD (post-traumatic stress disorder) take 1 tablet by mouth twice a day if needed for anxiety 60 Tablet 2 05/12/19 24 Active Loratadine 10 MG Oral Tablet (Claritin)Indicatio ns:Seasonal allergic rhinitis due to pollen take 1 tablet by mouth every morning 90 Tablet 3 05/13/19 24 Active Accu-Chek Guide In Vitro Strip (Glucose Blood)Indications:T ype 2 diabetes mellitus with hemoglobin A1c goal of less than 8.0% ([facility]),Diabetes mellitus, type II, insulin dependent ([facility]) USE TEST STRIPS TO TEST BLOOD SUGARS THREE TIMES DAILY 300 Strip 2 05/25/19 24 Active HYDROcodone-Acetami nophen 10-325 MG Oral TabletIndications:C ervical stenosis of spinal canal,Lumbar degenerative disc disease Take 2.5 Tablets by mouth daily as needed for Pain, Severe. Take 0.5-1 tab every 8 hours as needed for severe pain. Max dose of 2.5 tablets per day. 75 Tablet 0 06/15/19 24 Active DULoxetine HCl 30 MG Oral Capsule Delayed Release Particles (Cymbalta)Indicatio ns:Moderate episode of recurrent major depressive disorder (HCC) take 1 capsule by mouth every morning 90 Capsule 1 07/05/19 24 Active predniSONE 10 MG Oral Tablet (Deltasone)Indicati ons:COPD exacerbation ([facility]) Take 4 tabs for 2 days, 3 tabs for 2 days, 2 tabs for 2 days 1 tab for 2 days 20 Tablet 0 07/05/19 24 Active FreeStyle Test In Vitro Strip (Glucose Blood)Indications:T ype 2 diabetes mellitus with hemoglobin A1c goal of less than 8.0% ([facility]) Use to test 3 times [...] needed 8.5 g 5 07/24/19 24 Active Albuterol Sulfate HFA 108 (90 Base) MCG/ACT Inhalation Aerosol SolutionIndications :Mild persistent asthma with acute exacerbation,COPD, group B, by GOLD 2017 classification ([facility]) inhale 1 TO 2 puffs by mouth and INTO THE LUNGS every 2 hours if needed 8.5 g 5 04/02/19 24 024 Discontinued documented as of this encounter (statuses as of 07/24/2023) Active Problems Problem Noted Date Diagnosed Date [...] situ 11/23/2018 Chronic atrial fibrillation 08/24/2018 Overview: [facility] Dr Armenta Diabetes mellitus, type [...] as of this encounter (statuses as of 07/24/2023) Resolved Problems Problem Noted Date Diagnosed Date [...] as of this encounter (statuses as of 07/24/2023) Immunizations Name Administration Dates Next Due COVID-19 mRNA, LNP-s, No Pre serve, 2-Dose Series (Moderna) 10/23/2020,06/23/2020 H1N1 2008 Influenza, IM 04/06/2009 Pneumococcal Conjugate Vacci ne, 20-valent ([id number]) 11/19/2021 Pneumococcal Polysaccharide PPV23 (Pneumovax) 02/09/2007 Seasonal [...] encounter Miscellaneous Notes * Telephone Encounter - Suellen Lim [facility] - 07/24/2023 5:15 PM EDTSigned Prescriptions: Disp Refills Albuterol Sulfate HFA 108 (90 Base) MCG/AC*8.5 g 5 Sig: inhale 1TO 2 puffs by mouth and INTO THE LUNGS every 2 hours if neededAuthorizing Provider: BRIGITTE CM User: SUELLEN LIM documented in this encounter Plan of Treatment Upcoming Encounters Date Type Department Care Team (Late st Contact Info) Description 07/25/2023 6:30 AM EDT Anticoagulation Pharmacy Call Center [address] [facility] [place] [address] [facility], [facility] 58 60 [facility] [place] [address] 08/01/2023 1:00 PM EDT Telemedicine Pharmacy, [address] [place] [address] [facility] [address] [place] [address] 10/25/2023 3:00 PM EDT Office Visit Family Medicine [address] [place] [phone] Brigitte Cm MD [address] [place] [address] [place] [address] Scheduled Procedures Name Priority Associated Diagnoses Date/Ti me COLONOSCOPY FLEXIBLE PROXIMAL DIAGNOSTIC Recall History of colon polyps Health Maintenance Due Date Last Done Comments DISCUSS TOBACCO CESSATION (REFER TO SMARTSET #7860) 1955 Zoster Vaccines (1 of 2) 02/22/1975 [...] Directives occurred with: Not Discussed Care Teams Wrap Knitting Machine Operator Relationship Specialty Start Date End Date Brigitte Cm MD [address] [place] [address] [place] Sotelo [phone] PCP - General Family Medicine 11/23/18 documented as of this encounter
[2024-01-09 06:24] LABS: Hematocrit (blood only) 38.4 % (42.0-52.0); Hemoglobin 12.8 g/dl (14.0-18.0); Mean Corpuscular Hemoglobin 29.7 pg (25.0-34.0); Mean Corpuscular Hgb Conc 33.3 g/dL (32.0-36.0); Mean Corpuscular Volume 89.1 fL (80.0-100.0); Mean Platelet Volume 9.8 fL (9.4-12.4); Platelet Count 270 K/uL (130-400); RDW Coefficient of Variation 13.7 % (11.5-14.5); RDW Standard Deviation 44.9 fL (36.4-46.3); Red Blood Count 4.31 M/uL (4.70-6.10); White Blood Count 6.65 K/ul (4.8-10.8)
[2024-01-09 06:43] LABS: BUN Creatinine Ratio 16.9 (10-20); Calcium 8.8 mg/dl (8.6-10.3); Creatinine Clr Calc Pharmacy 96.2 ml/min; Magnesium 2.4 mg/dl (1.7-2.4); Phosphorus 3.2 mg/dl (2.5-4.9); Potassium 4.6 mmol/L (3.5-5.1)
[2024-01-09 06:48] LABS: INR 2.3 (0.9-1.1); Prothrombin Time 23.6 Seconds (9.0-12.0)
[2024-01-09 06:50] LABS: Troponin I High Sensitivity 7.6 pg/ml (0-20)
[2024-01-09] MEDS: LANTUS PER UNIT CHARGE SC SCH (08:25)
[2024-01-09] MEDS: FLUTICASONE FUROATE 100MCG 14 PUFFS/INHALER INH SCH (08:26)
[2024-01-09] MEDS: UMECLIDINIUM/VILANTEROL 62.5/25MCG 7 PUFFS/INHALER INH SCH (08:26)
[2024-01-09] MEDS: ISOSORBIDE DINITRATE 20 MG TAB PO SCH (08:29)
[2024-01-09] MEDS: DULoxetine HCL 30 MG CAP PO SCH (08:30)
[2024-01-09] MEDS: CLOPIDOGREL BISULFATE 75 MG TAB PO SCH (08:30)
[2024-01-09] MEDS: ASPIRIN 81 MG ECTAB PO SCH (08:30)
[2024-01-09] MEDS: ATENOLOL 25 MG TABLET PO SCH (08:30)
[2024-01-09] MEDS: MONTELUKAST SODIUM 10 MG TABLET PO SCH (08:31)
[2024-01-09] MEDS: predniSONE 5 MG TAB PO SCH (08:31)
[2024-01-09] MEDS: MULTIVITAMIN TAB PO SCH (08:31)
--- NOTE | 2024-01-09 08:38 | Cardiology Consultation ---
Date of Consultation January 09, 2024 Assessment & Plan (1) Chest pain: (2) Viral illness: (3) CAD (coronary artery disease): (4) Atrial fibrillation with controlled ventricular rate: Plan See Attending Sales Engineer's documentation for recommendations and plan of care. Supervising Physician Co-Signing Physician Notes Attending Staff: * Pt seen and evaluated with AP Staff * Concur with observations and plans 68 yo man presenting with chest pain + weakness + febrile illness x days * CAD hx * PCI - multiple * Most recent 06/2023 - 3 Stents to LCX * Afib * Pacemaker * COPD - chronic smoking * + Rhinovirus/enterovirus on presentation * Troponin - WNL x 4 * EKG - no ischemic changes - appears to be in slow atrial flutter * Chronically on Coumadin * Patient describes hx of anginal sx dating back to his LCX PCI in 06/2023 * Describes being bedbound x 48 hrs with potential hallucinations (separate issue) - may have been related to viral infection +/_ fevers * Appears to have PAF * CT Scan of Head Plans: * Pharamcologic Stress Test * NPO past WI * Continue ASA 81 mg po p er day * Continue Plavix 75 mg po per day * Continue Imdur 30 mg po per day * on Coumadin - HOLD * INR 2.3 * May consider heparin if cath indicated post Stress Test or resume if no cath is indicated * Continue Atenolol 25 mg po per day * ECHO is pending * On Repatha * Check LDL * +DM * SBP 144 * Consider Lisinopril 5 mg po per day Santi Scott History of Present Illness Reason for Consultation: Chest pain; history of CAD Requesting Physician: Smiley Meansist Attending Physician: Dr. Santi Scott History of Present Illness Patient is a 68-year-old male who presented to [facility] with complaints of chest pain, weakness and febrile illness. He has a complex cardiac history, follows with cardiology group in [place]. History includes: 1. CAD 2. Tachybrady syndrome s/p PPM 3. Afib 4. Asthma/COPD and chronic tobacco abuse 5. DM type 2 on insulin ' 6. PAF on coumadin He reports feeling weak/washed out last week. Had a fever of 102. Negative home COVID test. He went to bed on a Monday and "woke up" on a Monday and had been incontinent. Does not recall events. Throughout the next week, he reported feeling poorly. He has had intermittent chest pain/SOB/weakness with exertional activities. Chest pain radiates to his back at times. Feels this is similar to stent placement. Feels he never fully improved after stents were placed. his order editor in [place] left and he has not had close f/u. Due to generalized symptoms of chest pain/weakness, he came to the ER for evaluation. Since admission, high-sensitivity troponin has been negative x 4. EKG on admission demonstrates probable atrial flutter with controlled ventricular rates. No ischemic changes He admits his HR has been elevated at times at home often ranging 100-110. Respiratory biofire reveals +entero/rhino virus. Negative COVID and Flu. Blood cultures pending. BP fairly well controlled since admission. Echo ordered and pending. At time of consult, patient feeling ok. Resting in bed. No recurrent chest pain since admission. Ongoing dyspnea reported with minimal activity. Allergies Allergy/AdvReac Type Severity Reaction Status Date / Time capsaicin Allergy Intermediate RASH WITH Verified 08/09/21 10:26 JOINT SWELLING-CAN TAKE ASPIRIN diclofenac Allergy Intermediate RASH WITH Verified 08/09/21 10:26 JOINT SWELLING-CAN TAKE ASPIRIN Diclopak AdvReac Unknown RASH WITH Verified 03/18/16 16:31 JOINT SWELLING-CAN TAKE ASPIRIN Home Medications Medication Instructions Recorded Confirmed Type albuterol sulfate 90 mcg/actuation 2 puff inhalation QID PRN 01/16/19 01/04/22 History aerosol inhaler (Ventolin HFA) Shortness Of Breath Or Wheezing aspirin 81 mg tablet,delayed 81 mg PO QAM 01/16/19 01/04/22 History release (Aspir-) atenolol 25 mg tablet 25 mg PO UD 01/16/19 01/04/22 History baclofen 10 mg tablet 10 mg PO BID PRN Muscle Spasm 01/16/19 01/04/22 History calcium 333 mg 1 tab PO QAM 01/16/19 01/04/22 History (carbonate)-magnesium 133 mg-zinc 5 mg (sulfate) tablet coQ10 (ubiquinol) 200 mg capsule 200 mg PO QAM 01/16/19 01/04/22 History furosemide 20 mg tablet (Lasix) 20 mg PO QAM PRN Edema 01/16/19 01/04/22 History ipratropium 0.5 mg-albuterol 3 mg 3 ml inhalation Q6 PRN Shortness 01/16/19 01/04/22 History (2.5 mg base)/3 mL nebulization Of Breath Or Wheezing soln montelukast 10 mg tablet 10 mg PO QAM 01/16/19 01/04/22 History (Singulair) multivitamin 1 tab PO QAM 01/16/19 01/04/22 History pantoprazole 40 mg tablet,delayed 40 mg PO BID 01/16/19 01/04/22 History release polyethylene glycol 3350 17 17 g PO DAILY PRN Constipation 01/16/19 01/04/22 History gram/dose oral powder (Miralax) warfarin 5 mg tablet 10 mg PO QAM 01/16/19 01/04/22 History insulin glargine 100 unit/mL (3 1 unit subcut UD 01/22/19 01/04/22 History mL) subcutaneous pen (Basaglar KwikPen U-100 Insulin) nitroglycerin 0.4 mg sublingual 0.4 mg sublingual UD PRN CHEST PAIN 01/22/19 01/04/22 History tablet potassium chloride 10 mEq 10 meq PO QAM 01/22/19 01/04/22 History capsule,extended release trazodone 50 mg tablet 50 mg PO HS 01/22/19 01/04/22 History duloxetine 30 mg capsule,delayed 30 mg PO QAM 03/16/19 01/04/22 History release prednisone 10 mg tablet 5 mg PO QAM 03/16/19 01/04/22 History insulin aspart U-100 100 unit/mL 1 sliding scale dose subcut 03/22/19 01/04/22 History subcutaneous solution (Novolog USEASDIRECTD U-100 Insulin aspart) fluticasone propionate 50 1 spray intranasal DAILY 08/09/21 01/04/22 History mcg/actuation nasal spray,suspension hydrocodone 10 mg-acetaminophen 1 tab PO Q6H PRN Severe Pain 08/09/21 01/04/22 History 325 mg tablet (Scale Score 7-10) hydroxychloroquine 200 mg tablet 400 mg PO QPM 08/09/21 01/04/22 History (Plaquenil) loratadine 10 mg chewable tablet 10 mg PO QAM 08/09/21 01/04/22 History (Claritin) lorazepam 0.5 mg tablet (Ativan) 0.5 mg PO BID 08/09/21 01/04/22 History pregabalin 75 mg capsule (Lyrica) 75 mg PO BID 08/09/21 01/04/22 History fluticasone fur. 100 mcg-umeclid 1 inh inhalation DAILY 01/04/22 01/04/22 History 62.5 mcg-vilant 25 mcg inhalat.powder (Trelegy Ellipta) dicyclomine 10 mg capsule 10 mg PO TID PRN abdominal pain 01/06/22 Rx #20 caps famotidine 20 mg tablet 20 mg PO HS #30 tabs 01/06/22 Rx linaclotide 290 mcg capsule 290 mcg PO DAILY #30 caps 01/06/22 Rx (Linzess) clopidogrel 75 mg tablet mg 01/08/24 01/08/24 History evolocumab 140 mg/mL subcutaneous mg subcut 01/08/24 01/08/24 History pen injector (Jan Alfonsoick) insulin glargine 100 unit/mL (3 unit subcut 01/08/24 01/08/24 History mL) subcutaneous pen (Lantus Solostar U-100 Insulin) isosorbide mononitrate 30 mg mg PO 01/08/24 01/08/24 History tablet,extended release 24 hr loratadine 10 mg tablet mg 01/08/24 01/08/24 History metoprolol succinate 50 mg mg PO 01/08/24 01/08/24 History tablet,extended release 24 hr sulfasalazine 500 mg tablet 01/08/24 01/08/24 History Patient History Medical History (Updated 01/09/24 @ 09:03 by Joselin Aguilar PA-C) COPD (chronic obstructive pulmonary disease) Elevated troponin Weakness Abdominal pain, epigastric History of COVID-19 03/2021>BODY ACHES/FEVER *CONT. SOB WITH EXERTION ? RELATED TO COVID History of Helicobacter pylori infection History of pacemaker OCTOBER 2018 - [facility] Hx of myocardial infarction X6; 5 FROM [id number] AND 1 IN 2004 Post traumatic stress disorder Spinal stenosis Osteoarthritis BPH (benign prostatic hyperplasia) Ulcerative colitis GERD (gastroesophageal reflux disease) Restless leg syndrome Migraine History of cardioversion MAY 2018 Atrial fibrillation REASON FOR COUMADIN Hyperlipidemia PTSD (post-traumatic stress disorder) HTN (hypertension) Surgical History History of ERCP GALL STONES History of permanent cardiac pacemaker placement OCTOBER 2018>MONITORED BY [facility]/DR. HALL Hx of cardiac catheterization TOTAL 8 STENTS - LAST CATH AUGUST 2018 [facility] History of Achilles tendon repair LEFT Family history of reaction to anesthesia DAUGHTER-SLOW TO WAKE UP Hx of transurethral resection of prostate History of esophagogastroduodenoscopy (EGD) History of colonoscopy History of appendectomy History of tooth extraction Hx of metal removed from eye History of heart artery stent 8 TOTAL STENTS (LAST ONE PLACED AUGUST 2018 AT [facility] IN [place]) Stented coronary artery "stent x 7 from [id number]" Family History Grandfather (Paternal) Family history of diabetes mellitus Grandfather (Maternal) Family hx of colon cancer Social History Smoking Status: Current every day smoker Tobacco Type: Cigarettes Cigarettes Per Day: 5-10; Second Hand Exposure: Yes (IN THE PAST); Do You Dip or Chew Tobacco: No; Hx Alcohol Use: No Hx Substance Use: No Preferred Language: Albanian Communication Ability: Effective 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: No Beliefs That Will Affect Care: None Current Living Situation: Family Current Living Situation Comment: lives with daughter Harika and family Feels Safe at Home: Yes Safety Concerns: Feels Safe At This Time Assistive Devices: Cane Review of Systems Review of Systems: All systems reviewed & are unremarkable except as noted in HPI & below Physical Exam Constitutional: WD/WN, vitals as above well developed; no acute distress Neck: trachea midline, no thyromegaly Respiratory: no labored breathing Auscultation: + diminished lung sounds Cardiovascular: Rate/Rhythm: regular rate and regular rhythm Heart Sounds: no murmur Vessels: no JVD Extremities: no edema Gastrointestinal (Abdomen): normal bowel sounds, soft, nontender, no hepatosplenomegaly Musculoskeletal: no cyanosis or clubbing, extremities motor strength 5/5 Neurologic: PERRL, EOMI, accommodation nl, no face palsy, no dysarthria Results & Data Vital Signs (Past 12 Hours) Vital Signs Temp Pulse Pulse Resp BP Pulse Ox O2 Del Method 01/09/24 08:08 36.9 C 70 20 144/88 H 96 Room Air 01/09/24 07:39 64 01/09/24 04:08 36.5 C 70 18 119/75 95 Room Air 01/08/24 20:32 36.6 C 71 20 130/82 98 Room Air Laboratory Results Cardiac Enzymes 01/08/24 01/08/24 01/08/24 Range/Units 14:40 19:45 22:40 AST 22 (13-39) U/L Troponin I High Sens 5.7 7.0 5.9 (0-20) pg/ml 01/09/24 Range/Units 05:54 AST (13-39) U/L Troponin I High Sens 7.6 (0-20) pg/ml Coagulation 01/08/24 01/09/24 Range/Units 14:40 05:54 PT 27.2 H 23.6 H (9.0-12.0) Seconds APTT 39 H (21-31) Seconds CBC 01/08/24 01/09/24 Range/Units 14:40 05:54 WBC 8.55 6.65 (4.8-10.8) K/ul RBC 4.74 4.31 L (4.70-6.10) M/uL Hgb 13.7 L 12.8 L (14.0-18.0) g/dl Hct 43.3 38.4 L (42.0-52.0) % Plt Count 336 270 (130-400) K/uL Neut # (Auto) 5.87 (1.40-6.50) K/uL Lymph # (Auto) 1.59 (1.20-3.40) K/uL [place] # (Auto) 0.80 H (0.11-0.59) K/uL Eos # (Auto) 0.14 (0.00-0.50) K/uL Baso # (Auto) 0.07 (0.00-0.20) K/uL Comprehensive Metabolic Panel 01/08/24 01/09/24 Range/Units 14:40 05:54 Sodium 135 L 141 (136-145) mmol/L Potassium 5.1 4.6 (3.5-5.1) mmol/L Chloride 100 105 (98-107) mmol/L Carbon Dioxide 32 32 (21-32) mmol/L BUN 16 15 (6-23) mg/dl Creatinine 1.02 0.89 (0.6-1.4) mg/dl Glucose 202 H 80 (70-99(Fasting)) mg/dl Calcium 9.8 8.8 (8.6-10.3) mg/dl AST 22 (13-39) U/L ALT 39 (7-52) U/L Alkaline Phosphatase 48 (34-104) U/L Total Protein 7.0 (6.0-8.3) gm/dl Albumin 4.4 (3.4-5.0) gm/dl Intake and Output 01/08/24 01/09/24 01/09/24 22:59 06:59 14:59 Intake Total 120 / 120 Balance 120 / 120 Intake: Oral 120 / 120 Other: # Unmeasured Voids 1 Weight 98.2 kg 98.2 kg Weight Measurement Method Built [facility] Diagnostic Findings Telemetry reviewed: Atrial fibrillation with controlled rates. Intermittent ventricular pacing repeat EKG pending from this AM: Echo pending EKG reviewed from 01/08/24 on admission: Probable atrial flutter with controlled ventricular rate LAD possible old inferior infarct Compared with prior EKG, NSR has replaced electronic atrial pacemaker Chest x-ray reviewed from 01/08/2024: FINDINGS: An implanted pacemaker is seen. Aortic valvular prosthesis is seen. Elevation of the left hemidiaphragm is seen. No evidence of pleural effusion or pneumothorax. IMPRESSION: No acute chest disease. Head CT report reviewed dated 01/08/2024: Impression: No acute intracranial hemorrhage, no evidence of acute territorial infarction or other acute intracranial disease process. Prior outside data reviewed: Cardiac cath report reviewed dated July 10, 2023 at [facility]: Dist LAD lesion is 40% stenosed. Prox LAD to Mid LAD lesion is 20% stenosed. Ost Cx to Prox Cx lesion is 90% stenosed. Mid Cx lesion is 80% stenosed. Dist Cx lesion is 80% stenosed. 3rd Mrg lesion is 99% stenosed. First Obtuse Marginal Branch presents. Second Obtuse Marginal Branch presents. Impression: 1. Severe obstructive coronary artery disease of the left circumflex 2. Successful percutaneous intervention of the left circumflex and OM 3 with 3 drug-eluting stents 3. Nonobstructive disease of the LAD with patent stents Prior echo reviewed dated 01/05/2022: LV is normal in size. Normal wall motion. Ejection fraction 55 to 60%. Left atrial size is normal. Mild MR. Mild TR. Medications Administered Current Inpatient Medications Acetaminophen (Acetaminophen 325 Mg Tab) 650 mg PO Q4H PRN PRN Reason: Pain or Fever Stop: 02/07/24 18:46 Hydrocodone Bitart/Acetaminophen (Hydrocodone/Acetaminophen 10/325 Tab) 1 tab PO Q6H PRN PRN Reason: Severe Pain (Scale Score 7-10) Stop: 01/22/24 20:35 Last Admin: 01/09/24 08:33 Dose: 1 tab Albuterol (Albuterol Hfa 8 Gm Inhaler) 2 puffs INH QID PRN PRN Reason: Shortness Of Breath Or Wheezing Stop: 02/07/24 20:35 Albuterol (Albut/Ipratrop 3mg/0.5mg Neb 3 Ml Vial) 3 ml INH Q6 PRN; Protocol PRN Reason: Shortness Of Breath Or Wheezing Stop: 02/07/24 20:35 Aspirin (Aspirin 81 Mg Ectab) 81 mg PO [facility] Stop: 02/08/24 08:59 Last Admin: 01/09/24 08:30 Dose: 81 mg Atenolol (Atenolol 25 Mg Tablet) 25 mg PO [facility] Stop: 02/08/24 08:59 Last Admin: 01/09/24 08:30 Dose: 25 mg Baclofen (Baclofen 10 Mg Tab) 10 mg PO BID PRN PRN Reason: Muscle Spasm Stop: 02/07/24 20:35 Clopidogrel Bisulfate (Clopidogrel Bisulfate 75 Mg Tab) 75 mg PO [facility] Stop: 02/08/24 08:59 Last Admin: 01/09/24 08:30 Dose: 75 mg Dextrose (Dextrose 50% 50 Ml Syringe) 25 - 50 ml IV UD PRN; Protocol PRN Reason: Hypoglycemia Protocol Stop: 02/07/24 21:42 Dicyclomine HCl (Dicyclomine Hcl 10 Mg Cap) 10 mg PO TID PRN PRN Reason: abdominal pain Stop: 02/07/24 20:35 Duloxetine HCl (Dul[facility]etine Hcl 30 Mg Cap) [facility] Stop: 02/08/24 08:59 Last Admin: 01/09/24 08:30 Dose: 30 mg Famotidine (Famotidine 20 Mg Tab) 20 mg PO HS [facility] Stop: 02/07/24 20:59 Last Admin: 01/08/24 22:15 Dose: 20 mg Fluticasone Furoate (Fluticasone Furoate 100mcg 14 Puffs/Inhaler) 1 puffs INH DAILY VALERIE Stop: 02/08/24 08:59 Last Admin: 01/09/24 08:26 Dose: 1 puffs Glucagon (Glucagon For Inj 1 Mg Vial) 1 mg SQ UD PRN; Protocol PRN Reason: Hypoglycemia Protocol Stop: 02/07/24 21:42 Glucose (Glucose 40% Gel 15 Gm Tube) 15 - 30 gm PO UD PRN; Protocol PRN Reason: Hypoglycemia Protocol Stop: 02/07/24 21:42 Glucose (Glucose 10 Tab/Tube) 4 - 8 tab PO UD PRN; Protocol PRN Reason: Hypoglycemia Treatment Stop: 02/07/24 21:42 Insulin Aspart (Insulin Aspart Per Unit Charge) 0 units SC ACHS [facility] Stop: 02/07/24 21:59 Last Admin: 01/08/24 22:19 Dose: 2 units Insulin Glargine (Lantus Per Unit Charge) 10 units SC HS [facility] Stop: 02/07/24 21:14 Last Admin: 01/08/24 22:19 Dose: 10 units Insulin Glargine (Lantus Per Unit Charge) 10 units SC QAM [facility] Stop: 02/08/24 08:59 Last Admin: 01/09/24 08:25 Dose: 10 units Isosorbide Mononitrate (Isosorbide [place] Extended Rel 30 Mg Tabcr) 30 mg PO QAM [facility] Stop: 02/08/24 11:59 Lorazepam (Lorazepam 0.5 Mg Tab) 0.5 mg PO BID PRN PRN Reason: Anxiety Stop: 02/07/24 21:48 Last Admin: 01/08/24 22:13 Dose: 0.5 mg Miscellaneous (Carbohydrates For Hypoglycemia ) 15 - 30 gm PO UD PRN PRN Reason: Hypoglycemia Protocol Stop: 02/07/24 21:42 Montelukast Sodium (Montelukast Sodium 10 Mg Tablet) 10 mg PO QAM [facility] Stop: 02/08/24 08:59 Last Admin: 01/09/24 08:31 Dose: 10 mg Multivitamins (Multivitamin Tab) 1 tab PO QAM [facility] Stop: 02/08/24 08:59 Last Admin: 01/09/24 08:31 Dose: 1 tab Nitroglycerin (Nitroglycerin Sl 0.4 Mg/Tab Tab) 0.4 mg SL UD PRN PRN Reason: CHEST PAIN Stop: 02/07/24 20:35 Pantoprazole Sodium (Pantoprazole 40 Mg Tab) 40 mg PO BID VALERIE Stop: 02/07/24 21:29 Last Admin: 01/09/24 08:31 Dose: 40 mg Polyethylene Glycol (Polyethylene (Miralax) 17 Gm Pack) 17 gm PO DAILY PRN PRN Reason: Constipation Stop: 02/07/24 18:46 Prednisone (Prednisone 5 Mg Tab) 5 mg PO QAM [facility] Stop: 02/08/24 08:59 Last Admin: 01/09/24 08:31 Dose: 5 mg Pregabalin (Pregabalin 75 Mg Cap) 75 mg PO BID [facility] Stop: 02/07/24 21:14 Last Admin: 01/09/24 08:34 Dose: 75 mg Trazodone HCl (Trazodone Hcl 50 Mg Tab) 50 mg PO HS [facility] Stop: 02/07/24 22:14 Last Admin: 01/08/24 22:13 Dose: 50 mg Umeclidinium/Vilanterol (Umeclidinium/Vilanterol 62.5/25mcg 7 Puffs/Inhaler) 1 puffs INH DAILY [facility] Stop: 02/08/24 08:59 Last Admin: 01/09/24 08:26 Dose: 1 puffs Warfarin Sodium (Warfarin Sod 10 Mg Tab) 10 mg PO DAILY@1600 [facility] Stop: 02/08/24 15:59 (1) Chest pain Chest pain type: unspecified Qualified Code(s): R07.9 - Chest pain, unspecified (3) CAD (coronary artery disease) Associated angina: without angina Coronary Disease-Associated Artery/Lesion type: red devil artery [place] vs. transplanted heart: red devil heart Qualified Code(s): I25.10 - Atherosclerotic heart disease of red devil coronary artery without angina pectoris
[2024-01-09] MEDS ORDERED: LANTUS PER UNIT CHARGE SC SCH (09:00)
[2024-01-09] MEDS ORDERED: NON-FORMULARY MEDICATION (Fluticasone-Umeclidin-Vilanter [Trelegy Ellipta] 100-62.5-25 mcg INH SCH (09:00)
--- NOTE | 2024-01-09 09:31 | Electrocardiogram Report ---
Test Reason : Blood Pressure : */* mmHG Vent. 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
[2024-01-09] MEDS: ISOSORBIDE MONO EXTENDED REL 30 MG TABCR PO SCH (10:48)
--- NOTE | 2024-01-09 14:09 | Myocardial Perfusion Study ---
Date of Service January 09, 2024 Myocardial Perfusion Study [facility] Myocardial Perfusion Study Report LEXISCAN STRESS MYOCARDIAL PERFUSION IMAGING STUDY Indication: Chest pain Brief description: Rest portion-at 10:10 AM the patient was injected with 9.4 mCi of technetium 99m Cardiolite IV. 1 hour following injection, myocardial perfusion imaging was performed in multiple projections. Stress portion-baseline heart rate, blood pressure, and EKG were measured. The same parameters were monitored continuously for 3 minutes of infusion and 3 minutes recovery. They were intermittently recorded. Patient was infused with 0.4 mg Lexiscan IV followed immediately by injection of 31.0 mCi of technetium 99m Cardiolite IV. 30 minutes following injection, myocardial perfusion imaging was performed in multiple projections similar to those used for the rest portion. Patient reported no significant chest discomfort with infusion. Hemodynamic and electrocardiographic findings: 1. Resting heart rate was 62 bpm and esther to a maximum of 76 bpm with Lexiscan infusion. 2. Resting blood pressure was 99/72 mmHg and esther to a maximum of 121/81 mmHg with Lexiscan infusion. 3. Resting EKG demonstrates ventricular paced rhythm with possible underlying atrial flutter. There are no diagnostic ST segment or T wave changes with Lexiscan infusion. No Lexiscan induced arrhythmias. Myocardial perfusion imaging findings: 1. Raw data analysis demonstrates mild soft tissue attenuation and movement. This is an adequate study for interpretation. 2. Gated myocardial perfusion demonstrates a normal size LV, reduced ejection fraction calculated at 38%, and wall motion abnormalities in the lateral, inferior, inferior lateral, and inferoseptal myocardium ranging from mild hypokinesis to near akinesis. 3. There is a medium to large in size, moderate intensity, combined fixed and reversible myocardial perfusion defect involving the inferior, inferolateral, and lateral myocardium. These findings are suggestive of medium sized infarct with moderate neil-infarct ischemia. There does not seem to be significant contribution of artifact. 4. Study is significantly abnormal. Moderate ischemia is suggested. No prior study for comparison. I recommend further discussion with cardiology regarding cardiac catheterization or coronary CTA to further evaluate. [facility] Myocardial perfusion code Indication for Procedure (1) CAD (coronary artery disease): Procedure Code Procedure 1: Myocardial Perfusion Codes: 20978 Cardiovascular Stress Test, multiple Procedure 2: Myocardial Perfusion Codes: 94017 Cardiovascular Stress Test, supervision only Procedure 3: Myocardial Perfusion Codes: 32888 Cardiovascular Stress Test, interpretation and report
--- NOTE | 2024-01-09 15:23 | Hospitalist Progress Note ---
Date of Service January 09, 2024 Assessment & Plan (1) Chest pain: Plan: Hx of CAD s/p multiple stents, most recently reports procedure in [facility] in 05/2023 w/ 3 stents placed Follows w/ cardiology group in [place] - will need to obtain records Presents due to chest pressure and back pain - that he feels is similar to his previous MIs In the ED - ECG, troponin obtained - negat. Pt currently appears comfortable, without any significant pain. Admitted to telemetry troponins negative ECG reviewed by cardiology - no ischemic changes - appears to be in slow atrial flutter Echo obtained - RV cavity size is normal. LVEF 50 to 55%.There is a large inferior, posterior, and lateral wall motion abnormality with hypokinesis to akinesis of the segments.LA is moderately dilated.Aortic valve sclerosis mild, without significant aortic valvular stenosis.There is mild mitral regurg.There is mild tricuspid regurg.Doppler findings do not suggest pulmonary hypertension. For now, cont. home cardiac meds (Patient reports taking aspirin, Plavix, atenolol, Imdur, however he is not sure what dose of Imdur he is taking.) Cardiology consulted - * Pharamcologic Stress Test * NPO past MN * Continue ASA 81 mg po p er day * Continue Plavix 75 mg po per day * Continue Imdur 30 mg po per day * on Coumadin - HOLD * INR 2.3 * May consider heparin if cath indicated post Stress Test or resume if no cath is indicated * Continue Atenolol 25 mg po per day * check LDL Myocardial perfusion imaging findings: 1. Raw data analysis demonstrates mild soft tissue attenuation and movement. This is an adequate study for interpretation. 2. Gated myocardial perfusion demonstrates a normal size LV, reduced ejection fraction calculated at 38%, and wall motion abnormalities in the lateral, inferior, inferior lateral, and inferoseptal myocardium ranging from mild hypokinesis to near akinesis. 3. There is a medium to large in size, moderate intensity, combined fixed and reversible myocardial perfusion defect involving the inferior, inferolateral, and lateral myocardium. These findings are suggestive of medium sized infarct with moderate neil-infarct ischemia. There does not seem to be significant contribution of artifact. 4. Study is significantly abnormal. Moderate ischemia is suggested. No prior study for comparison. I recommend further discussion with cardiology regarding cardiac catheterization or coronary CTA to further evaluate. NPO past midnight for potential coronary angiography Hx of Afib, hx of PPM - cont. home atenolol, warfarin (warfarin now on hold) - monitor INR Fever -reports having fever about a week ago, weakness, and some cough - tested himself at home for Covid and reports having negative result - CXR in the ED unremarkable - Biofire posit. for Entero/rhinovirus - procalcitonin negative - blood cultx - pending - UA - negative (2) Diabetes mellitus, type 2: Plan: - Hgb A1c 6.5% in 09/2023 (good control) - at home on glargine 20 AM, 10 PM and novolog - cont insulin, SSI - monitor BSG (3) COPD (chronic obstructive pulmonary disease): Plan: - cont. home inhalers, nebs prn - currently not in exacerbation Current smoker - counseling provided - declines nicotine patch CODE: Full (discussed w/ the pt) Admission and Anticipated Discharge Date Admission Date: January 08, 2024 Subjective Pt seen in follow up of chest pain, weakness, hx of fever Pt has significant cardiac history, also hx of COPD. Resp biofire posit for entero/rhinovirus Currently pt is laying in bed in NAD Currently comfortable without chest pain or shortness of breath also denies fever, chills, abd. pain, n/v Pt seen by cardiology and echo obtained, also plan for pharm. stress test Review of Systems Review of Systems: All systems reviewed & are unremarkable except as noted in Subjective Physical Exam Physical Exam: Constitutional: WD/WN, vitals as a ella Eyes: PERRL, conjunctiva e normal, anicteri c sclerae ENMT: external ear and n ose normal, oropha rynx normal Neck: supple Respiratory: Auscultation: CTAB , no wheezing Cardiovascular: RRR, no murmur, no edema Gastrointestinal ( Abdomen): normal bowel sound s, soft, nontender Musculoskeletal: Head/Neck/Chest: n ormocephalic, head atraumatic and ne ck supple Extremi ties: extremities normal to inspecti on Skin: no rashes, warm an d dry Neurologic: PERRL, EOMI, no fa ce palsy, no dysar thria, moves extre mities Psychiatric: A+Ox3, euthymic af fect Lymphatic: no lymphedema Results & Data Results & Data Vital Signs (Past 12 Hours) Vital Signs Temp Pulse Pulse Resp BP Pulse Ox O2 Del Method 01/09/24 14:27 61 01/09/24 08:08 36.9 C 70 20 144/88 H 96 Room Air 01/09/24 08:00 Room Air 01/09/24 07:39 64 01/09/24 04:08 36.5 C 70 18 119/75 95 Room Air Laboratory Results 01/09/24 01/09/24 01/08/24 Range/Units 12:45 05:54 22:40 WBC 6.65 (4.8-10.8) K/ul RBC 4.31 L (4.70-6.10) M/uL Hgb 12.8 L (14.0-18.0) g/dl Hct 38.4 L (42.0-52.0) % MCV 89.1 (80.0-100.0) fL MCH 29.7 (25.0-34.0) pg MCHC 33.3 (32.0-36.0) g/dL RDW Std Deviation 44.9 (36.4-46.3) fL RDW Coeff of Pedro 13.7 (11.5-14.5) % Plt Count 270 (130-400) K/uL MPV 9.8 (9.4-12.4) fL PT 23.6 H (9.0-12.0) Seconds INR 2.3 H (0.9-1.1) APTT (21-31) Seconds PTT Ratio Sodium 141 (136-145) mmol/L Potassium 4.6 (3.5-5.1) mmol/L Chloride 105 (98-107) mmol/L Carbon Dioxide 32 (21-32) mmol/L Anion Gap 4 (3-11) BUN 15 (6-23) mg/dl Creatinine 0.89 (0.6-1.4) mg/dl Est Cr Clr Drug Dosing 96.2 ml/min eGFR 93.93 BUN/Creatinine Ratio 16.9 (10-20) Glucose 80 (70-99(Fasting)) mg/dl POC Glucose 127 H (70-99) mg/dl Calcium 8.8 (8.6-10.3) mg/dl Phosphorus 3.2 (2.5-4.9) mg/dl Magnesium 2.4 (1.7-2.4) mg/dl Troponin I High Sens 7.6 5.9 (0-20) pg/ml Procalcitonin (0-0.5) ng/ml Urine Color Urine Appearance (Clear) Urine pH (4.5-7.5) Ur Specific Wood (1.000-1.030) Urine Protein (Negative) Urine Glucose (UA) (Negative) Urine Ketones (Negative) Urine Blood (Negative) Urine Nitrite (Negative) Urine Bilirubin (Negative) Urine Urobilinogen (Negative) Ur Leukocyte Esterase (Negative) Adenovirus (PCR) (NotDetected) B. pertussis DNA (PCR) (NotDetected) B.parapertussis DNA PCR (NotDetected) C. pneumoniae DNA (PCR) (NotDetected) Coronavirus OC43 (PCR) (NotDetected) Coronavirus HKU1 (PCR) (NotDetected) Coronavirus 229E (PCR) (NotDetected) SARS-CoV-2 (PCR) (NotDetected) Coronavirus NL63 (PCR) (NotDetected) Human Metapneumovir PCR (NotDetected) Influenza Type A (PCR) (NotDetected) Influenza Type B (PCR) (NotDetected) M. pneumoniae (PCR) (NotDetected) Parainfluenza 1 (PCR) (NotDetected) Parainfluenza 2 (PCR) (NotDetected) Parainfluenza 3 (PCR) (NotDetected) Parainfluenza 4 (PCR) (NotDetected) RSV (PCR) (NotDetected) Entero/Rhino (PCR) (NotDetected) 01/08/24 01/08/24 01/08/24 Range/Units 21:18 20:06 20:00 WBC (4.8-10.8) K/ul RBC (4.70-6.10) M/uL Hgb (14.0-18.0) g/dl Hct (42.0-52.0) % MCV (80.0-100.0) fL MCH (25.0-34.0) pg MCHC (32.0-36.0) g/dL RDW Std Deviation (36.4-46.3) fL RDW Coeff of Pedro (11.5-14.5) % Plt Count (130-400) K/uL MPV (9.4-12.4) fL PT (9.0-12.0) Seconds INR (0.9-1.1) APTT (21-31) Seconds PTT Ratio Sodium (136-145) mmol/L Potassium (3.5-5.1) mmol/L Chloride (98-107) mmol/L Carbon Dioxide (21-32) mmol/L Anion Gap (3-11) BUN (6-23) mg/dl Creatinine (0.6-1.4) mg/dl Est Cr Clr Drug Dosing ml/min eGFR BUN/Creatinine Ratio (10-20) Glucose (70-99(Fasting)) mg/dl POC Glucose 191 H (70-99) mg/dl Calcium (8.6-10.3) mg/dl Phosphorus (2.5-4.9) mg/dl Magnesium (1.7-2.4) mg/dl Troponin I High Sens (0-20) pg/ml Procalcitonin (0-0.5) ng/ml Urine Color Dark Yellow Urine Appearance Clear (Clear) Urine pH 7.0 (4.5-7.5) Ur Specific Wood 1.015 (1.000-1.030) Urine Protein Negative (Negative) Urine Glucose (UA) Negative (Negative) Urine Ketones Negative (Negative) Urine Blood Negative (Negative) Urine Nitrite Negative (Negative) Urine Bilirubin Negative (Negative) Urine Urobilinogen Negative (Negative) Ur Leukocyte Esterase Negative (Negative) Adenovirus (PCR) Not Detected (NotDetected) B. pertussis DNA (PCR) Not Detected (NotDetected) B.parapertussis DNA PCR Not Detected (NotDetected) C. pneumoniae DNA (PCR) Not Detected (NotDetected) Coronavirus OC43 (PCR) Not Detected (NotDetected) Coronavirus HKU1 (PCR) Not Detected (NotDetected) Coronavirus 229E (PCR) Not Detected (NotDetected) SARS-CoV-2 (PCR) Not Detected (NotDetected) Coronavirus NL63 (PCR) Not Detected (NotDetected) Human Metapneumovir PCR Not Detected (NotDetected) Influenza Type A (PCR) Not Detected (NotDetected) Influenza Type B (PCR) Not Detected (NotDetected) M. pneumoniae (PCR) Not Detected (NotDetected) Parainfluenza 1 (PCR) Not Detected (NotDetected) Parainfluenza 2 (PCR) Not Detected (NotDetected) Parainfluenza 3 (PCR) Not Detected (NotDetected) Parainfluenza 4 (PCR) Not Detected (NotDetected) RSV (PCR) Not Detected (NotDetected) Entero/Rhino (PCR) DETECTED A (NotDetected) 01/08/24 01/08/24 Range/Units 19:45 14:40 WBC (4.8-10.8) K/ul RBC (4.70-6.10) M/uL Hgb (14.0-18.0) g/dl Hct (42.0-52.0) % MCV (80.0-100.0) fL MCH (25.0-34.0) pg MCHC (32.0-36.0) g/dL RDW Std Deviation (36.4-46.3) fL RDW Coeff of Pedro (11.5-14.5) % Plt Count (130-400) K/uL MPV (9.4-12.4) fL PT 27.2 H (9.0-12.0) Seconds INR 2.7 H (0.9-1.1) APTT 39 H (21-31) Seconds PTT Ratio 1.4 Sodium (136-145) mmol/L Potassium (3.5-5.1) mmol/L Chloride (98-107) mmol/L Carbon Dioxide (21-32) mmol/L Anion Gap (3-11) BUN (6-23) mg/dl Creatinine (0.6-1.4) mg/dl Est Cr Clr Drug Dosing ml/min eGFR BUN/Creatinine Ratio (10-20) Glucose (70-99(Fasting)) mg/dl POC Glucose (70-99) mg/dl Calcium (8.6-10.3) mg/dl Phosphorus (2.5-4.9) mg/dl Magnesium (1.7-2.4) mg/dl Troponin I High Sens 7.0 (0-20) pg/ml Procalcitonin < 0.02 (0-0.5) ng/ml Urine Color Urine Appearance (Clear) Urine pH (4.5-7.5) Ur Specific Wood (1.000-1.030) Urine Protein (Negative) Urine Glucose (UA) (Negative) Urine Ketones (Negative) Urine Blood (Negative) Urine Nitrite (Negative) Urine Bilirubin (Negative) Urine Urobilinogen (Negative) Ur Leukocyte Esterase (Negative) Adenovirus (PCR) (NotDetected) B. pertussis DNA (PCR) (NotDetected) B.parapertussis DNA PCR (NotDetected) C. pneumoniae DNA (PCR) (NotDetected) Coronavirus OC43 (PCR) (NotDetected) Coronavirus HKU1 (PCR) (NotDetected) Coronavirus 229E (PCR) (NotDetected) SARS-CoV-2 (PCR) (NotDetected) Coronavirus NL63 (PCR) (NotDetected) Human Metapneumovir PCR (NotDetected) Influenza Type A (PCR) (NotDetected) Influenza Type B (PCR) (NotDetected) M. pneumoniae (PCR) (NotDetected) Parainfluenza 1 (PCR) (NotDetected) Parainfluenza 2 (PCR) (NotDetected) Parainfluenza 3 (PCR) (NotDetected) Parainfluenza 4 (PCR) (NotDetected) RSV (PCR) (NotDetected) Entero/Rhino (PCR) (NotDetected) Medications Administered Current Inpatient Medications Acetaminophen (Acetaminophen 325 Mg Tab) 650 mg PO Q4H PRN PRN Reason: Pain or Fever Stop: 02/07/24 18:46 Hydrocodone Bitart/Acetaminophen (Hydrocodone/Acetaminophen 10/325 Tab) 1 tab PO Q6H PRN PRN Reason: Severe Pain (Scale Score 7-10) Stop: 01/22/24 20:35 Last Admin: 01/09/24 08:33 Dose: 1 tab Albuterol (Albuterol Hfa 8 Gm Inhaler) 2 puffs INH QID PRN PRN Reason: Shortness Of Breath Or Wheezing Stop: 02/07/24 20:35 Albuterol (Albut/Ipratrop 3mg/0.5mg Neb 3 Ml Vial) 3 ml INH Q6 PRN; Protocol PRN Reason: Shortness Of Breath Or Wheezing Stop: 02/07/24 20:35 Aspirin (Aspirin 81 Mg Ectab) [facility] [place] [place] Stop: 02/08/24 08:59 Last Admin: 01/09/24 08:30 Dose: 81 mg Atenolol (Atenolol 25 Mg Tablet) 25 mg PO QAM [facility] Stop: 02/08/24 08:59 Last Admin: 01/09/24 08:30 Dose: 25 mg Baclofen (Baclofen 10 Mg Tab) 10 mg PO BID PRN PRN Reason: Muscle Spasm Stop: 02/07/24 20:35 Clopidogrel Bisulfate (Clopidogrel Bisulfate 75 Mg Tab) [facility] [place] [place] Stop: 02/08/24 08:59 Last Admin: 01/09/24 08:30 Dose: 75 mg Dextrose (Dextrose 50% 50 Ml Syringe) 25 - 50 ml IV UD PRN; Protocol PRN Reason: Hypoglycemia Protocol Stop: 02/07/24 21:42 Dicyclomine HCl (Dicyclomine Hcl 10 Mg Cap) 10 mg PO TID PRN PRN Reason: abdominal pain Stop: 02/07/24 20:35 Duloxetine HCl (Duloxetine Hcl 30 Mg Cap) [facility] [place] [place] Stop: 02/08/24 08:59 Last Admin: 01/09/24 08:30 Dose: 30 mg Famotidine (Famotidine 20 Mg Tab) 20 mg PO HS [facility] Stop: 02/07/24 20:59 Last Admin: 01/08/24 22:15 Dose: 20 mg Fluticasone Furoate (Fluticasone Furoate 100mcg 14 Puffs/Inhaler) 1 puffs INH DAILY [facility] Stop: 02/08/24 08:59 Last Admin: 01/09/24 08:26 Dose: 1 puffs Glucagon (Glucagon For Inj 1 Mg Vial) 1 mg SQ UD PRN; Protocol PRN Reason: Hypoglycemia Protocol Stop: 02/07/24 21:42 Glucose (Glucose 40% Gel 15 Gm Tube) 15 - 30 gm PO UD PRN; Protocol PRN Reason: Hypoglycemia Protocol Stop: 02/07/24 21:42 Glucose (Glucose 10 Tab/Tube) 4 - 8 tab PO UD PRN; Protocol PRN Reason: Hypoglycemia Treatment Stop: 02/07/24 21:42 Insulin Aspart (Insulin Aspart Per Unit Charge) 0 units SC ACHS [facility] Stop: 02/07/24 21:59 Last Admin: 01/09/24 13:00 Dose: Not Given Insulin Glargine (Lantus Per Unit Charge) 10 units SC HS [facility] Stop: 02/07/24 21:14 Last Admin: 01/08/24 22:19 Dose: 10 units Insulin Glargine (Lantus Per Unit Charge) 10 units SC QAM [facility] Stop: 02/08/24 08:59 Last Admin: 01/09/24 08:25 Dose: 10 units Isosorbide Mononitrate (Isosorbide [place] Extended Rel 30 Mg Tabcr) 30 mg PO [facility] Stop: 02/08/24 11:59 Last Admin: 01/09/24 10:48 Dose: 30 mg Lorazepam (Lorazepam 0.5 Mg Tab) 0.5 mg PO BID PRN PRN Reason: Anxiety Stop: 02/07/24 21:48 Last Admin: 01/08/24 22:13 Dose: 0.5 mg Miscellaneous (Carbohydrates For Hypoglycemia ) 15 - 30 gm PO UD PRN PRN Reason: Hypoglycemia Protocol Stop: 02/07/24 21:42 Montelukast Sodium (Montelukast Sodium 10 Mg Tablet) 10 mg PO [facility] Stop: 02/08/24 08:59 Last Admin: 01/09/24 08:31 Dose: 10 mg Multivitamins (Multivitamin Tab) 1 tab PO [facility] Stop: 02/08/24 08:59 Last Admin: 01/09/24 08:31 Dose: 1 tab Nitroglycerin (Nitroglycerin Sl 0.4 Mg/Tab Tab) 0.4 mg SL UD PRN PRN Reason: CHEST PAIN Stop: 02/07/24 20:35 Pantoprazole Sodium (Pantoprazole 40 Mg Tab) 40 mg PO BID [facility] Stop: 02/07/24 21:29 Last Admin: 01/09/24 08:31 Dose: 40 mg Polyethylene Glycol (Polyethylene (Miralax) 17 Gm Pack) 17 gm PO DAILY PRN PRN Reason: Constipation Stop: 02/07/24 18:46 Prednisone (Prednisone 5 Mg Tab) 5 mg PO [facility] Stop: 02/08/24 08:59 Last Admin: 01/09/24 08:31 Dose: 5 mg Pregabalin (Pregabalin 75 Mg Cap) 75 mg PO BID [facility] Stop: 02/07/24 21:14 Last Admin: 01/09/24 08:34 Dose: 75 mg Trazodone HCl (Trazodone Hcl 50 Mg Tab) 50 mg PO HS [facility] Stop: 02/07/24 22:14 Last Admin: 01/08/24 22:13 Dose: 50 mg Umeclidinium/Vilanterol (Umeclidinium/Vilanterol 62.5/25mcg 7 Puffs/Inhaler) 1 puffs INH DAILY [facility] Stop: 02/08/24 08:59 Last Admin: 01/09/24 08:26 Dose: 1 puffs Warfarin Sodium (Warfarin Sod 10 Mg Tab) 10 mg PO DAILY@1600 [facility] Stop: 02/08/24 15:59 (1) Chest pain Chest pain type: unspecified Qualified Code(s): R07.9 - Chest pain, unspecified
[2024-01-09] MEDS ORDERED: WARFARIN SOD 10 MG TAB PO SCH (16:00)
[2024-01-09] MEDS: REGADENOSON 0.4 MG/5 ML SYR IV ONE (19:41)
[2024-01-09] MEDS: ACETAMINOPHEN 325 MG TAB PO PRN (19:50)
[2024-01-10] MEDS: INSULIN ASPART PER UNIT CHARGE SC SCH ×2 (06:05→17:05)
[2024-01-10 07:22] LABS: Hematocrit (blood only) 40.1 % (42.0-52.0); Hemoglobin 13.6 g/dl (14.0-18.0); Mean Corpuscular Hgb Conc 33.9 g/dL (32.0-36.0); Mean Corpuscular Volume 88.5 fL (80.0-100.0); Mean Platelet Volume 9.8 fL (9.4-12.4); Platelet Count 307 K/uL (130-400); RDW Coefficient of Variation 13.8 % (11.5-14.5); RDW Standard Deviation 45.1 fL (36.4-46.3); Red Blood Count 4.53 M/uL (4.70-6.10); White Blood Count 6.55 K/ul (4.8-10.8)
[2024-01-10 07:30] LABS: BUN Creatinine Ratio 20.2 (10-20); Calcium 9.1 mg/dl (8.6-10.3); Chol HDL Ratio 7.2 (0-5); Creatinine Clr Calc Pharmacy 94.6 ml/min; Magnesium 2.4 mg/dl (1.7-2.4); Potassium 4.3 mmol/L (3.5-5.1)
[2024-01-10 07:43] LABS: INR 1.6 (0.9-1.1); Prothrombin Time 16.4 Seconds (9.0-12.0)
--- NOTE | 2024-01-10 10:42 | Electrocardiogram Report ---
Test Reason : Blood Pressure : */* mmHG Vent. Rate : 68 BPM Atrial Rate : 70 BPM P-R Int : * ms QRS Dur : 174 ms QT Int : 468 ms P-R-T Axes : * 5 190 degrees QTcB Int : 497 ms Ventricular-paced rhythm with frequent Premature ventricular complexes Abnormal ECG When compared with ECG of 08-Jan-2024 14:35, Electronic ventricular pacemaker has replaced Sinus rhythm Confirmed by Mike Carolina ([id number] on 01/10/2024 10:42:13 AM Referred By: REFERRED SELF Confirmed By: Mike Carolina
--- NOTE | 2024-01-10 12:31 | Hospitalist Progress Note ---
Date of Service January 10, 2024 Assessment & Plan (1) Chest pain: Plan: Hx of CAD s/p multiple stents, most recently reports procedure in [facility] in 05/2023 w/ 3 stents placed Follows w/ cardiology group in [place] - will need to obtain records Presents due to chest pressure and back pain - that he feels is similar to his previous MIs In the ED - ECG, troponin obtained - negat. Pt currently appears comfortable, without any significant pain. Admitted to telemetry troponins negative ECG reviewed by cardiology - no ischemic changes - appears to be in slow atrial flutter Echo obtained - RV cavity size is normal. LVEF 50 to 55%.There is a large inferior, posterior, and lateral wall motion abnormality with hypokinesis to akinesis of the segments.LA is moderately dilated.Aortic valve sclerosis mild, without significant aortic valvular stenosis.There is mild mitral regurg.There is mild tricuspid regurg.Doppler findings do not suggest pulmonary hypertension. For now, cont. home cardiac meds (Patient reports taking aspirin, Plavix, atenolol, Imdur, however he is not sure what dose of Imdur he is taking.) Cardiology consulted - * Pharamcologic Stress Test * NPO past MN * Continue ASA 81 mg po p er day * Continue Plavix 75 mg po per day * Continue Imdur 30 mg po per day * on Coumadin - HOLD * INR 2.3 * May consider heparin if cath indicated post Stress Test or resume if no cath is indicated * Continue Atenolol 25 mg po per day * check LDL Myocardial perfusion imaging findings: 1. Raw data analysis demonstrates mild soft tissue attenuation and movement. This is an adequate study for interpretation. 2. Gated myocardial perfusion demonstrates a normal size LV, reduced ejection fraction calculated at 38%, and wall motion abnormalities in the lateral, inferior, inferior lateral, and inferoseptal myocardium ranging from mild hypokinesis to near akinesis. 3. There is a medium to large in size, moderate intensity, combined fixed and reversible myocardial perfusion defect involving the inferior, inferolateral, and lateral myocardium. These findings are suggestive of medium sized infarct with moderate neil-infarct ischemia. There does not seem to be significant contribution of artifact. 4. Study is significantly abnormal. Moderate ischemia is suggested. No prior study for comparison. I recommend further discussion with cardiology regarding cardiac catheterization or coronary CTA to further evaluate. Plan for coronary angiography 01/10/24 INR 1.6, warfarin on hold Hx of Afib, hx of PPM - cont. home atenolol, warfarin (warfarin now on hold) - monitor INR Fever -reports having fever about a week ago, weakness, and some cough - tested himself at home for Covid and reports having negative result - CXR in the ED unremarkable - Biofire posit. for Entero/rhinovirus - procalcitonin negative - blood cultx - pending - UA - negative (2) Diabetes mellitus, type 2: Plan: - Hgb A1c 6.5% in 09/2023 (good control) - at home on glargine 20 AM, 10 PM and novolog - cont insulin, SSI - monitor BSG (3) COPD (chronic obstructive pulmonary disease): Plan: - cont. home inhalers, nebs prn - currently not in exacerbation Current smoker - counseling provided - declines nicotine patch CODE: Full (discussed w/ the pt) Admission and Anticipated Discharge Date Admission Date: January 08, 2024 Subjective Pt seen in follow up of chest pain, weakness, hx of fever Pt has significant cardiac history, also hx of COPD. Resp biofire posit for entero/rhinovirus Currently pt is laying in bed in NAD Currently comfortable without chest pain or shortness of breath however overnight felt palpitations and "not feeling well" denies fever, chills, abd. pain, n/v Pt followed by cardiology closely - plan for cardiac cath , discussed w/ cardiology warfarin on hold, INR 1.6 Review of Systems Review of Systems: All systems reviewed & are unremarkable except as noted in Subjective Physical Exam Physical Exam: Constitutional: WD/WN, vitals as a ella Eyes: PERRL, conjunctiva e normal, anicteri c sclerae ENMT: external ear and n ose normal, oropha rynx normal Neck: supple Respiratory: Auscultation: decr eased breath sound s, no wheezing Cardiovascular: RRR, no murmur, no edema Gastrointestinal ( Abdomen): normal bowel sound s, soft, nontender Musculoskeletal: Head/Neck/Chest: n ormocephalic, head atraumatic and ne ck supple Extremi ties: extremities normal to inspecti on Skin: no rashes, warm an d dry Neurologic: PERRL, EOMI, no fa ce palsy, no dysar thria, moves extre mities Psychiatric: A+Ox3, euthymic af fect Lymphatic: no lymphedema Results & Data Results & Data Vital Signs (Past 12 Hours) Vital Signs Temp Pulse Pulse Resp BP Pulse Ox O2 Del Method 01/10/24 10:51 36.6 C 65 17 145/78 H 96 Room Air 01/10/24 07:56 Room Air 01/10/24 07:30 36.4 C L 65 16 127/84 94 Room Air 01/10/24 07:23 64 01/10/24 06:09 36.4 C L 75 16 108/75 95 Room Air 01/10/24 03:28 36.5 C 75 16 115/74 94 Room Air Laboratory Results 01/10/24 01/10/24 01/10/24 Range/Units 12:01 06:44 06:36 WBC 6.55 (4.8-10.8) K/ul RBC 4.53 L (4.70-6.10) M/uL Hgb 13.6 L (14.0-18.0) g/dl Hct 40.1 L (42.0-52.0) % MCV 88.5 (80.0-100.0) fL MCH 30.0 (25.0-34.0) pg MCHC 33.9 (32.0-36.0) g/dL RDW Std Deviation 45.1 (36.4-46.3) fL RDW Coeff of Pedro 13.8 (11.5-14.5) % Plt Count 307 (130-400) K/uL MPV 9.8 (9.4-12.4) fL PT 16.4 H (9.0-12.0) Seconds INR 1.6 H (0.9-1.1) Sodium 140 (136-145) mmol/L Potassium 4.3 (3.5-5.1) mmol/L Chloride 104 (98-107) mmol/L Carbon Dioxide 29 (21-32) mmol/L Anion Gap 7 (3-11) BUN 18 (6-23) mg/dl Creatinine 0.89 (0.6-1.4) mg/dl Est Cr Clr Drug Dosing 94.6 ml/min eGFR 93.93 BUN/Creatinine Ratio 20.2 H (10-20) Glucose 107 H (70-99(Fasting)) mg/dl POC Glucose 121 H (70-99) mg/dl Calcium 9.1 (8.6-10.3) mg/dl Phosphorus 3.0 (2.5-4.9) mg/dl Magnesium 2.4 (1.7-2.4) mg/dl Troponin I High Sens 8.0 (0-20) pg/ml Triglycerides 235 H (0-150) mg/dl Cholesterol 144 (0-200) mg/dl LDL Cholesterol, Calc 77 mg/dl VLDL Cholesterol, Calc 47 H (0-30) mg/dl HDL Cholesterol 20 mg/dl Cholesterol/HDL Ratio 7.2 H (0-5) 01/10/24 01/09/24 01/09/24 Range/Units 06:04 20:30 16:37 WBC (4.8-10.8) K/ul RBC (4.70-6.10) M/uL Hgb (14.0-18.0) g/dl Hct (42.0-52.0) % MCV (80.0-100.0) fL MCH (25.0-34.0) pg MCHC (32.0-36.0) g/dL RDW Std Deviation (36.4-46.3) fL RDW Coeff of Pedro (11.5-14.5) % Plt Count (130-400) K/uL MPV (9.4-12.4) fL PT (9.0-12.0) Seconds INR (0.9-1.1) Sodium (136-145) mmol/L Potassium (3.5-5.1) mmol/L Chloride (98-107) mmol/L Carbon Dioxide (21-32) mmol/L Anion Gap (3-11) BUN (6-23) mg/dl Creatinine (0.6-1.4) mg/dl Est Cr Clr Drug Dosing ml/min eGFR BUN/Creatinine Ratio (10-20) Glucose (70-99(Fasting)) mg/dl POC Glucose 125 H 92 133 H (70-99) mg/dl Calcium (8.6-10.3) mg/dl Phosphorus (2.5-4.9) mg/dl Magnesium (1.7-2.4) mg/dl Troponin I High Sens (0-20) pg/ml Triglycerides (0-150) mg/dl Cholesterol (0-200) mg/dl LDL Cholesterol, Calc mg/dl VLDL Cholesterol, Calc (0-30) mg/dl HDL Cholesterol mg/dl Cholesterol/HDL Ratio (0-5) 01/09/24 Range/Units 12:45 WBC (4.8-10.8) K/ul RBC (4.70-6.10) M/uL Hgb (14.0-18.0) g/dl Hct (42.0-52.0) % MCV (80.0-100.0) fL MCH (25.0-34.0) pg MCHC (32.0-36.0) g/dL RDW Std Deviation (36.4-46.3) fL RDW Coeff of Pedro (11.5-14.5) % Plt Count (130-400) K/uL MPV (9.4-12.4) fL PT (9.0-12.0) Seconds INR (0.9-1.1) Sodium (136-145) mmol/L Potassium (3.5-5.1) mmol/L Chloride (98-107) mmol/L Carbon Dioxide (21-32) mmol/L Anion Gap (3-11) BUN (6-23) mg/dl Creatinine (0.6-1.4) mg/dl Est Cr Clr Drug Dosing ml/min eGFR BUN/Creatinine Ratio (10-20) Glucose (70-99(Fasting)) mg/dl POC Glucose 127 H (70-99) mg/dl Calcium (8.6-10.3) mg/dl Phosphorus (2.5-4.9) mg/dl Magnesium (1.7-2.4) mg/dl Troponin I High Sens (0-20) pg/ml Triglycerides (0-150) mg/dl Cholesterol (0-200) mg/dl LDL Cholesterol, Calc mg/dl VLDL Cholesterol, Calc (0-30) mg/dl HDL Cholesterol mg/dl Cholesterol/HDL Ratio (0-5) Medications Administered Current Inpatient Medications Acetaminophen (Acetaminophen 325 Mg Tab) 650 mg PO Q4H PRN PRN Reason: Pain or Fever Stop: 02/07/24 18:46 Last Admin: 01/09/24 19:50 Dose: 650 mg Hydrocodone Bitart/Acetaminophen (Hydrocodone/Acetaminophen 10325 Tab) 1 tab PO Q6H PRN PRN Reason: Severe Pain (Scale Score 7-10) Stop: 01/22/24 20:35 Last Admin: 01/10/24 06:04 Dose: 1 tab Albuterol (Albuterol Hfa 8 Gm Inhaler) 2 puffs INH QID PRN PRN Reason: Shortness Of Breath Or Wheezing Stop: 02/07/24 20:35 Albuterol (Albut/Ipratrop 3mg/0.5mg Neb 3 Ml Vial) 3 ml INH Q6 PRN; Protocol PRN Reason: Shortness Of Breath Or Wheezing Stop: 02/07/24 20:35 Aspirin (Aspirin 81 Mg Ectab) 81 mg PO QAM VALERIE Stop: 02/08/24 08:59 Last Admin: 01/10/24 08:33 Dose: 81 mg Atenolol (Atenolol 25 Mg Tablet) 25 mg PO QAM VALERIE Stop: 02/08/24 08:59 Last Admin: 01/10/24 08:32 Dose: 25 mg Baclofen (Baclofen 10 Mg Tab) 10 mg PO BID PRN PRN Reason: Muscle Spasm Stop: 02/07/24 20:35 Clopidogrel Bisulfate (Clopidogrel Bisulfate 75 Mg Tab) 75 mg PO QAM VALERIE Stop: 02/08/24 08:59 Last Admin: 01/10/24 08:33 Dose: 75 mg Dextrose (Dextrose 50% 50 Ml Syringe) 25 - 50 ml IV UD PRN; Protocol PRN Reason: Hypoglycemia Protocol Stop: 02/07/24 21:42 Dicyclomine HCl (Dicyclomine Hcl 10 Mg Cap) 10 mg PO TID PRN PRN Reason: abdominal pain Stop: 02/07/24 20:35 Duloxetine HCl (Duloxetine Hcl 30 Mg Cap) 30 mg PO QAM VALERIE Stop: 02/08/24 08:59 Last Admin: 01/10/24 08:32 Dose: 30 mg Famotidine (Famotidine 20 Mg Tab) 20 mg PO HS VALERIE Stop: 02/07/24 20:59 Last Admin: 01/09/24 20:27 Dose: 20 mg Fluticasone Furoate (Fluticasone Furoate 100mcg 14 Puffs/Inhaler) 1 puffs INH DAILY VALERIE Stop: 02/08/24 08:59 Last Admin: 01/10/24 08:33 Dose: 1 puffs Glucagon (Glucagon For Inj 1 Mg Vial) 1 mg SQ UD PRN; Protocol PRN Reason: Hypoglycemia Protocol Stop: 02/07/24 21:42 Glucose (Glucose 40% Gel 15 Gm Tube) 15 - 30 gm PO UD PRN; Protocol PRN Reason: Hypoglycemia Protocol Stop: 02/07/24 21:42 Glucose (Glucose 10 Tab/Tube) 4 - 8 tab PO UD PRN; Protocol PRN Reason: Hypoglycemia Treatment Stop: 02/07/24 21:42 Insulin Aspart (Insulin Aspart Per Unit Charge) 0 units SC Q6 [facility] Stop: 02/09/24 05:59 Last Admin: 01/10/24 12:25 Dose: Not Given Insulin Glargine (Lantus Per Unit Charge) 10 units SC HS [facility] Stop: 02/07/24 21:14 Last Admin: 01/09/24 20:47 Dose: Not Given Insulin Glargine (Lantus Per Unit Charge) 10 units SC QAM [facility] Stop: 02/08/24 08:59 Last Admin: 01/10/24 08:40 Dose: 10 units Isosorbide Mononitrate (Isosorbide Rains Extended Rel 30 Mg Tabcr) 30 mg PO QAM [facility] Stop: 02/08/24 11:59 Last Admin: 01/10/24 08:33 Dose: 30 mg Lorazepam (Lorazepam 0.5 Mg Tab) 0.5 mg PO BID PRN PRN Reason: Anxiety Stop: 02/07/24 21:48 Last Admin: 01/09/24 20:35 Dose: 0.5 mg Miscellaneous (Carbohydrates For Hypoglycemia ) 15 - 30 gm PO UD PRN PRN Reason: Hypoglycemia Protocol Stop: 02/07/24 21:42 Montelukast Sodium (Montelukast Sodium 10 Mg Tablet) 10 mg PO QAM [facility] Stop: 02/08/24 08:59 Last Admin: 01/10/24 08:32 Dose: 10 mg Multivitamins (Multivitamin Tab) 1 tab PO QAM [facility] Stop: 02/08/24 08:59 Last Admin: 01/10/24 08:32 Dose: 1 tab Nitroglycerin (Nitroglycerin Sl 0.4 Mg/Tab Tab) 0.4 mg SL UD PRN PRN Reason: CHEST PAIN Stop: 02/07/24 20:35 Pantoprazole Sodium (Pantoprazole 40 Mg Tab) 40 mg PO BID VALERIE Stop: 02/07/24 21:29 Last Admin: 01/10/24 08:33 Dose: 40 mg Polyethylene Glycol (Polyethylene (Miralax) 17 Gm Pack) 17 gm PO DAILY PRN PRN Reason: Constipation Stop: 02/07/24 18:46 Prednisone (Prednisone 5 Mg Tab) 5 mg PO QAM VALERIE Stop: 02/08/24 08:59 Last Admin: 01/10/24 08:32 Dose: 5 mg Pregabalin (Pregabalin 75 Mg Cap) 75 mg PO BID VALERIE Stop: 02/07/24 21:14 Last Admin: 01/10/24 08:39 Dose: 75 mg Trazodone HCl (Trazodone Hcl 50 Mg Tab) 50 mg PO HS VALERIE Stop: 02/07/24 22:14 Last Admin: 01/09/24 20:35 Dose: 50 mg Umeclidinium/Vilanterol (Umeclidinium/Vilanterol 62.5/25mcg 7 Puffs/Inhaler) 1 puffs INH DAILY VALERIE Stop: 02/08/24 08:59 Last Admin: 01/10/24 08:34 Dose: 1 puffs Warfarin Sodium (Warfarin Sod 10 Mg Tab) 10 mg PO DAILY@1600 [facility] Stop: 02/08/24 15:59 (1) Chest pain Chest pain type: unspecified Qualified Code(s): R07.9 - Chest pain, unspecified
[2024-01-10] MEDS: niCARdipine HCL INJ 2.5 MG/ML 10 ML AMP ONE (13:52)
[2024-01-10] MEDS: NITROGLYCERIN/D5W 100MCG/ML 20ML SYR ONE (13:52)
--- NOTE | 2024-01-10 14:05 | Cardiology Progress Note ---
Date of Service January 10, 2024 Assessment & Plan (1) Abnormal nuclear stress test: (2) Chest pain: (3) Viral illness: (4) CAD (coronary artery disease): (5) Atrial fibrillation with controlled ventricular rate: Plan Patient referred for diagnostic cardiac catheterization today. Risk, benefits, alternatives to procedure reviewed. Agreeable to proceed. Prior cardiac catheterization and interventional records reviewed. All questions answered to patient's satisfaction. Restart warfarin post-cardiac cath. Further recommendations pending result of coronary angiography. Admission and Anticipated Discharge Date Admission Date: January 08, 2024 Subjective 68-year-old male seen and examined at the bedside. Telemetry reveals atrial flutter with demand ventricular pacing. Notes occasional palpitations overnight. Mild chest discomfort reported by nursing. Currently pain-free. Lexiscan nuclear stress test demonstrating inferior posterior infarct with neil- infarct ischemia. Review of Systems Review of Systems: All systems reviewed & are unremarkable except as noted in Subjective Physical Exam Constitutional: well developed and well nourished; no acute distress Respiratory: normal respiratory effort; no respiratory distress, no labored breathing and no retractions Auscultation: no crackles, no rales, no rhonchi and no wheezes Cardiovascular: Rate/Rhythm: regular rate and regular rhythm Heart Sounds: normal S1 and normal S2; no murmur Extremities: no edema Gastrointestinal (Abdomen): Inspection/Auscultation: abdomen normal to inspection and normal bowel sounds; abdomen not distended Percussion/Palpation: abdomen soft; abdomen nontender, no guarding and abdomen not rigid Neurologic: CN's II-XI intact bilaterally and moves all extremities; no focal motor deficits Results & Data Vital Signs (Past 12 Hours) Vital Signs Temp Pulse Pulse Resp BP Pulse Ox O2 Del Method 01/10/24 12:50 36.7 C 80 137/82 99 Room Air 01/10/24 10:51 36.6 C 65 17 145/78 H 96 Room Air 01/10/24 07:56 Room Air 01/10/24 07:30 36.4 C L 65 16 127/84 94 Room Air 01/10/24 07:23 64 01/10/24 06:09 36.4 C L 75 16 108/75 95 Room Air 01/10/24 03:28 36.5 C 75 16 115/74 94 Room Air Laboratory Results Cardiac Enzymes 01/10/24 Range/Units 06:44 Troponin I High Sens 8.0 (0-20) pg/ml Coagulation 01/10/24 Range/Units 06:36 PT 16.4 H (9.0-12.0) Seconds Lipids 01/10/24 Range/Units 06:44 Triglycerides 235 H (0-150) mg/dl Cholesterol 144 (0-200) mg/dl HDL Cholesterol 20 mg/dl Cholesterol/HDL Ratio 7.2 H (0-5) CBC 01/10/24 Range/Units 06:36 WBC 6.55 (4.8-10.8) K/ul RBC 4.53 L (4.70-6.10) M/uL Hgb 13.6 L (14.0-18.0) g/dl Hct 40.1 L (42.0-52.0) % Plt Count 307 (130-400) K/uL Comprehensive Metabolic Panel 01/10/24 Range/Units 06:44 Sodium 140 (136-145) mmol/L Potassium 4.3 (3.5-5.1) mmol/L Chloride 104 (98-107) mmol/L Carbon Dioxide 29 (21-32) mmol/L BUN 18 (6-23) mg/dl Creatinine 0.89 (0.6-1.4) mg/dl Glucose 107 H (70-99(Fasting)) mg/dl Calcium 9.1 (8.6-10.3) mg/dl Intake and Output 01/09/24 01/10/24 01/10/24 22:59 06:59 14:59 Intake Total 360 / 360 Balance 360 / 360 Intake: Oral 360 / 360 Other: Other Intake Source NPO, Sips # Unmeasured Voids 1 4 Weight 94.7 kg Weight Measurement Method Built in [facility] (2) Chest pain Chest pain type: unspecified Qualified Code(s): R07.9 - Chest pain, unspecified (4) CAD (coronary artery disease) Coronary Disease-Associated Artery/Lesion type: [place] artery [place] vs. transplanted heart: [place] heart Associated angina: without angina Qualified Code(s): I25.10 - Atherosclerotic heart disease of [place] coronary artery without angina pectoris
[2024-01-10] MEDS: fentaNYL citrate PF 100 MCG/2 ML VIAL ONE (14:31)
[2024-01-10] MEDS: MIDAZOLAM HCL 1 MG/ML 2ML VIAL ONE (14:32)
[2024-01-10] MEDS: HEPARIN (PORCINE) 1000 UNIT/ML 10 ML (CATH LAB USE ONLY) ONE (14:32)
[2024-01-10] MEDS: OPTIRAY 350 ONE (14:32)
--- NOTE | 2024-01-10 14:34 | Pre Anesthesia Assessment ---
Date of Service January 10, 2024 Pre Sedation Assessment Vital Signs Temp Pulse Pulse Resp BP Pulse Ox O2 Del Method 01/10/24 12:50 36.7 C 80 137/82 99 Room Air 01/10/24 10:51 36.6 C 65 17 145/78 H 96 Room Air 01/10/24 07:56 Room Air 01/10/24 07:30 36.4 C L 65 16 127/84 94 Room Air 01/10/24 07:23 64 01/10/24 06:09 36.4 C L 75 16 108/75 95 Room Air 01/10/24 03:28 36.5 C 75 16 115/74 94 Room Air 01/09/24 23:31 36.4 C L 60 18 136/75 96 Room Air 01/09/24 22:14 Room Air 01/09/24 21:46 65 01/09/24 19:58 72 16 110/73 96 Room Air 01/09/24 15:58 36.7 C 73 18 117/80 97 Room Air Cardiovascular RRR, no murmur, no edema Respiratory normal respiratory effort, lungs clear to auscultation Pre-Sedation Airway Assessment Smoking Status: Current every day smoker Hx Sleep Apnea: No Short, Thick Neck: No Thyromental Distance: > or= 3.5 Finger Breadths Oral Cavity: + WNL Mallampati Class: III ASA: ASA3 NPO Status Date of Last Intake of Fluids: 01/09/24 Time of Last Intake of Fluids: 20:00 Date of Last Intake of Solid Food: 01/09/24 Time of Last Intake of Solid Foods: 15:00 Notes The planned sedation has been discussed with the patient. Informed Consent was obtained. I have identified the patient, determined the appropriateness of sedation and have assessed the patient immediately prior to the procedure. All medicine(s) and interventions are by my order.
--- NOTE | 2024-01-10 14:45 | Post Anesthesia Assessment ---
Date of Service January 10, 2024 Post Sedation Assessment Vital Signs Temp Pulse Pulse Resp BP Pulse Ox O2 Del Method 01/10/24 12:50 36.7 C 80 137/82 99 Room Air 01/10/24 10:51 36.6 C 65 17 145/78 H 96 Room Air 01/10/24 07:56 Room Air 01/10/24 07:30 36.4 C L 65 16 127/84 94 Room Air 01/10/24 07:23 64 01/10/24 06:09 36.4 C L 75 16 108/75 95 Room Air 01/10/24 03:28 36.5 C 75 16 115/74 94 Room Air 01/09/24 23:31 36.4 C L 60 18 136/75 96 Room Air 01/09/24 22:14 Room Air 01/09/24 21:46 65 01/09/24 19:58 72 16 110/73 96 Room Air 01/09/24 15:58 36.7 C 73 18 117/80 97 Room Air Recovery Score Activity: Moves 4 extremities Respiration: Deep Breath/Cough Circulation: +/-20% PreAnes Value Consciousness: Fully Awake Oxygen Saturation: > 92% On Room Air Discharge Sedation Level of Care: Fast Track Phase II Post Sedation Plan On clinical assessment, the patient appears to have tolerated the sedation without complications. Patient is recovering as anticipated. Patient will continue to be monitored by nursing and may be discharged when sedation discharge criteria are met per below protocol. Upon Completions of procedure up to 15 minutes continue every 5 minute vital signs and the P.A.R. score; then discharge to a Phase I or Fast Track to Phase II per the following guidelines: * Discharge Patient to appropriate Phase II area if PAR is 8 or greater or return to pre- procedure baseline. The post - procedure orders will be as directed. * If PAR score is less than 8 or not return to pre-procedure baseline then patient will follow Phase I monitoring till PAR is reached for Phase II. The Phase I may be done in procedure room or may call to secure a Phase I area. * If naloxone or flumazenil are used for reversal, hold in Phase I for continued monitoring from when last reversal dose was given for a minimum of 60 minutes or longer pending the nurse and/or physician discretion of patient condition before discharge to Phase II. Please call the Sedation Physician to re-evaluate and complete post-note for discharge to Phase II area. Do NOT discharge from procedure sedation or Phase 1 until post- sedation evaluation note is complete by procedure /sedation MD Sedation Discharge Instructions to be given to the patient at discharge to home. [facility] [place] Procedure Codes (Charges) Indication for Procedure Indication for procedure: unstable angina abnormal stress Sedation/Anesthesia Procedure 1: Sedation/Anesthesia: 86894 Mod Sedation by the same physician;Init15 Min Child Age 5 & Up (Initial 15 minutes, start time 1357) Total Sedation Time (minutes): 33 Procedure 2: Sedation/Anesthesia: 08454 Mod Sedation by the same physician; Ea [id number] Minutes (Additional 18 min, end time 1430) Total Sedation Time (minutes): 33
--- NOTE | 2024-01-10 16:41 | Cardiac Catheterization ---
ACC Data: Eligibility Manager Cardiac Status Clinical evaluation leading to the procedure CAD Presenation: Positive Stress Test and Unstable angina Anginal Classification: CCS IV Heart Failure: No Cardiogenic Shock within 24 Hours: No Cardiac Arrest within 24 Hours: No Imaging Studies Past 6 Months: Yes Stress Studies Past 6 Months: Yes Stress Testing w/SPECT MPI: Yes - Positive (LCx territory) Coronary Anatomy Dominant: Right Left Main (% Stenosis): Normal LAD (% Stenosis): Proximal (Less than 30% in-stent restenosis), Mid (Less than 30% in-stent restenosis) and Distal (Early focal 60 to 70% stenosis) D1 (% Stenosis): Proximal (50% stenosis) D2 (% Stenosis): Normal Circumflex (% Stenosis): Proximal (Stent patent), Mid (Stent patent) and Distal (Stent patent, after OM 3 AV groove 70% stenosis) OM1 (% Stenosis): Ostial (70%) OM2 (% Stenosis): Ostial (70%) OM3 (% Stenosis): Proximal (Stent patent) RCA (% Stenosis): Proximal (Less than 40% in-stent restenosis), Mid (Less than 40% in-stent restenosis) and Distal (Less than 40% in-stent restenosis) R PDA (% Stenosis): Normal R PL1 (% Stenosis): Normal Diagnostic Physicians Name: Cedric Christensen MD, PhD Closure Device Percutaneous Entry Location: Radial Closure Device: Radial Band Recommendations: Medical Therapy and/or Counseling Cardiac Cath Procedure Full Procedure Date January 10, 2024 Pre-Procedure Diagnosis Pre-Procedure Diagnosis: Angina and Positive Stress Test AUC Score AUC Score: 07 Post-Procedure Diagnosis Post-Procedure Diagnosis: Severe CAD Procedure(s) Performed Procedure(s) Performed: Coronary Angiography, Ultrasound Guided Vascular Access and Fractional Flow [place] [employer] Cedric Christensen MD, PhD Estimated Blood Loss Estimated Blood Loss: None (10) Medication(s) Medication(s): Fentanyl, Heparin, Lidocaine 1%, Nicardipine, Nitroglycerin and Versed Summary of Findings Brief description: Patient was brought to the cardiac catheterization suite where he was shaved and prepped in a sterile fashion. Sedated using IV Versed and fentanyl. Soft tissues of the right groin were anesthetized using 10 mL of 1% Xylocaine. Using the ultrasound for guidance (image saved) the right femoral artery was accessed and a 5 [place] femoral artery sheath was placed. All catheters were advanced and exchanged over a 0.035 J-tip wire. Left coronary angiography in orthogonal views with a 5 [place] JL 4 diagnostic catheter. Right coronary angiography in orthogonal views with a 5 [place] JR4 diagnostic catheter. Decision was made to proceed with IFR analysis of the LAD. Diagnostic catheters were removed. Patient was provided IV heparin. A 5 [place] EBU 3.5 guide catheter was used to engage the left main coronary. The Omni Doppler wave wire was advanced in position with the transducer just distal to the guide catheter tip. The system was flushed with normal saline and then the pressures were normalized. Guidewire was then advanced beyond the lesion in the LAD. iFR was then sampled 3 times. The guidewire was removed and final angiographic evaluation was performed. The guide catheter was removed over the J-wire. Limited right femoral artery angiography was performed to evaluate for closure. Findings were favorable, therefore, the 5 [place] femoral artery sheath was exchanged for a 6 [place] Angio-Seal closure device. This was deployed in the recommended fashion. We obtained immediate hemostasis and the patient remained hemodynamically stable. He was therefore returned to the recovery area. This ended the case. Coronary angiography findings: [id number]-[id number] vessel bifurcating into LAD and circumflex. No angiographically significant disease. AQT-exeyr-fjikzxx and transapical. The proximal through mid vessel has previously placed stent(s) which have diffuse in-stent restenosis less than 20 to 30%. LAD gives a large septal, a medium to large caliber diagonal with proximal 50% stenosis, and a small caliber second diagonal. The early distal LAD has a focal 60 to 70% stenosis and possibly some intramyocardial bridging. EMu-wohdm-qbsygsn and nondominant. There is a stent train extending from the proximal segment through the distal segment and then continuing into the midportion of the large OM 3. The stented segment is widely patent. There is a small to medium caliber OM1 and a small OM 2. OM1 with ostial 70% stenosis and OM 2 has ostial 70% stenosis. The AV groove circumflex after the OM 3 ostium (jailed) is small to medium in caliber with 70% stenosis. RCA-this is large caliber and dominant. There is a stent train extending from proximal to distal vessel. Diffuse in-stent restenosis less than 40%. It then bifurcates into the PDA and posterolateral branches which have no angiographically significant disease. iFR of LAD-0.9, 0.9, 0.91. Therefore, this is not hemodynamically significant by IFR analysis. Summary: 1. Previous placed stents are patent. 2. Multiple branch vessels with significant disease not amenable to PCI. 3. IFR analysis of angiographically borderline distal LAD stenosis suggests that this is not hemodynamically significant. 4. Continue guideline directed medical therapy for secondary prevention of coronary artery disease per primary team. Titrate up the antianginal regimen. Hemodynamics Rest Ao:: 107/81 mmHg Final Ao: 121/73 mmHg LV: Not performed Recommendations Recommendations: Medical Therapy and/or Counseling Radiation Exposure (mGy) 1291 mGy, fluoroscopy time 5.9 minutes Contrast (mls) 110 Anesthesia 2 mg Versed, 75 mcg fentanyl IV. Start time 1357, end time 1430 Procedural Complication(s) None Disposition Eligibility Manager Holding/Recovery I attest to the content of the Intraoperative Record and any orders documented therein. Any exceptions are noted below. [facility] Card Cath Procedure Codes Cardiac Catheterization Procedure 1: Cardiovascular Cath Procedures: 72566 Coronaries Procedure 2: Cardiovascular Cath Procedures: 18919 (Doppler) Pressure Wire Therapeutic Services & Ancillary Procedure 1: Cardiovascular Tx and Anc Procedures: 16751 Ultrasonic Guidance Vascular Access Moderate Sedation Procedure 1: Sedation/Anesthesia: 48977 Mod Sedation by the same physician;Init15 Min Child Age 5 & Up (Initial 15 minutes, start time 1357) Procedure 2: Sedation/Anesthesia: 20272 Mod Sedation by the same physician; Ea [id number] Minutes (Additional 18 minutes, end time 1430) PG Care Time/CCT Total # of Minutes Spent Total Time Spent with Patient: Total time spent is greater than 50% in coordination of care (as documented) at patient's floor/unit and/or counseling patient:
[2024-01-10] MEDS ORDERED: Nursing to Pharmacy Communication SCH (16:45)
[2024-01-11 06:41] LABS: Hematocrit (blood only) 40.6 % (42.0-52.0); Hemoglobin 13.2 g/dl (14.0-18.0); Mean Corpuscular Hemoglobin 29.3 pg (25.0-34.0); Mean Corpuscular Hgb Conc 32.5 g/dL (32.0-36.0); Mean Platelet Volume 9.8 fL (9.4-12.4); Platelet Count 274 K/uL (130-400); RDW Coefficient of Variation 13.7 % (11.5-14.5); RDW Standard Deviation 44.8 fL (36.4-46.3); Red Blood Count 4.51 M/uL (4.70-6.10); White Blood Count 6.37 K/ul (4.8-10.8)
[2024-01-11 06:57] LABS: BUN Creatinine Ratio 20.9 (10-20); Calcium 8.7 mg/dl (8.6-10.3); Creatinine Clr Calc Pharmacy 97.8 ml/min; Magnesium 2.4 mg/dl (1.7-2.4); Phosphorus 3.3 mg/dl (2.5-4.9)
[2024-01-11 07:31] LABS: INR 1.3 (0.9-1.1)
[2024-01-11] MEDS: BACLOFEN 10 MG TAB PO PRN (08:27)
[2024-01-11 10:45] VITALS: BP 96/70; RESP 16; TEMP 97.3; O2SAT 97
--- NOTE | 2024-01-11 11:17 | Discharge Summary ---
Discharge Summary Date of Service January 11, 2024 Principal Dx & Hospital Course #1 = Principal Diagnosis (1) Stable angina: (2) Atrial fibrillation with controlled ventricular rate: (3) Diabetes mellitus, type 2: (4) CAD (coronary artery disease): (5) Viral illness: Plan Patient presented to the emergency room complaints of chest pain. Patient was admitted to the hospital. Monitor on telemetry. His rates were controlled. Patient has extensive history of coronary artery disease. Cardiology consultation was obtained. Patient underwent stress testing which showed Concerns for some neil-infarct ischemia. Also question some moderate ischemia outside the areas of previous infarct. Has recommended patient undergo cardiac catheterization. Patient underwent cardiac catheterization showed diffuse disease, stents were patent. There was no vessels that were amenable to any additional intervention. This postcardiac cath course was uneventful. He is continued on his maximum medical regimen for his coronary artery disease. Patient also was diagnosed with a rhinovirus. Some of his fatigue may be related to getting over this viral illness. On the day of discharge his overall his vital signs are stable. He will be discharged on also only 1 beta-татьяна appears that he may have been taking both atenolol and metoprolol which certainly could contribute to some of his symptoms of fatigue. He will follow- up with his outpatient providers as arranged. Notes For Next Care Provider Patient should get his INR checked on Monday per his usual process Medication Changes From Visit Lantus dose changed to 10 units 2 times daily Continue atenolol only Admission HPI Per Admitting Provider Pt is a 68 yo M w/ hx of CAD, tachybrady syndrome s/p PPM, hx of Afib, asthma, COPD, current smoker, DM type 2 on insulin who presents with chest pain, and weakness. As per his cardiac hx - pt reports to be s/p multiple stents - reports since 1996 had 11 stents placed and most recently had 3 stents in right circumflex in May of 2023 in [facility] where he had to be transferred for the procedure. Pt says he follows with Cardiology group in [place], says he was being seen by Dr. Christi Merritt and that she however left the group. Pr report no new medications recently. Says that on Monday he had a flat tire, which he changed, and felt very tired.He laid down, and he remembers waking up on Monday. When he woke up he felt very weak and could not get up from bed and so he called his daughter. He reports having temperature of 102 F And because of his weakness, And some cough, he thought he may have had COVID. He tested himself at home however, and was found negative.He denies having any more fevers after that. He has been feeling dizzy and weak for several months. Now he reports having chest pressure, and pain by his back, that feels like his previous heart attacks. Reports having significant cardiac history, several previous heart attacks, multiple stent placements.Reports he follows with cardiology group in [place], and that he had most recently(in May 2023) placed 3 stents at [facility] where he needed to be transferred for the procedure. Currently patient is lying in bed, comfortable, without any significant chest pain.Chest x-ray, CT head, ECG, troponin obtained in the ED.Workup in ED so far unremarkable. Admission Exam Per Admitting Provider See H&P Discharge Exam Constitutional: Alert HEENT: Mucous membranes moist. Lungs: Clear to auscultation, decreased, no wheezes rales or rhonchi CV: S1-S2, regular Abdomen: Soft, nontender, nondistended Extremities: No significant edema Neuro: No focal deficits Psych: Cooperative, normal mood Updated Medication List Medication Instructions Recorded Confirmed Type albuterol sulfate 90 mcg/actuation 2 puff inhalation QID PRN 01/16/19 01/04/22 History aerosol inhaler (Ventolin HFA) Shortness Of Breath Or Wheezing aspirin 81 mg tablet,delayed 81 mg PO QAM 01/16/19 01/04/22 History release (Aspir-) atenolol 25 mg tablet 25 mg PO UD 01/16/19 01/04/22 History baclofen 10 mg tablet 10 mg PO BID PRN Muscle Spasm 01/16/19 01/04/22 History calcium 333 mg 1 tab PO QAM 01/16/19 01/04/22 History (carbonate)-magnesium 133 mg-zinc 5 mg (sulfate) tablet coQ10 (ubiquinol) 200 mg capsule 200 mg PO QAM 01/16/19 01/04/22 History ipratropium 0.5 mg-albuterol 3 mg 3 ml inhalation Q6 PRN Shortness 01/16/19 01/04/22 History (2.5 mg base)/3 mL nebulization Of Breath Or Wheezing soln montelukast 10 mg tablet 10 mg PO QAM 01/16/19 01/04/22 History (Singulair) multivitamin 1 tab PO QAM 01/16/19 01/04/22 History pantoprazole 40 mg tablet,delayed 40 mg PO BID 01/16/19 01/04/22 History release polyethylene glycol 3350 17 17 g PO DAILY PRN Constipation 01/16/19 01/04/22 History gram/dose oral powder (Miralax) warfarin 5 mg tablet 10 mg PO QAM 01/16/19 01/04/22 History nitroglycerin 0.4 mg sublingual 0.4 mg sublingual UD PRN CHEST PAIN 01/22/19 01/04/22 History tablet trazodone 50 mg tablet 50 mg PO HS 01/22/19 01/04/22 History duloxetine 30 mg capsule,delayed 30 mg PO QAM 03/16/19 01/04/22 History release prednisone 10 mg tablet 5 mg PO QAM 03/16/19 01/04/22 History insulin aspart U-100 100 unit/mL 1 sliding scale dose subcut 03/22/19 01/04/22 History subcutaneous solution (Novolog USEASDIRECTD U-100 Insulin aspart) fluticasone propionate 50 1 spray intranasal DAILY 08/09/21 01/04/22 History mcg/actuation nasal spray,suspension hydrocodone 10 mg-acetaminophen 1 tab PO Q6H PRN Severe Pain 08/09/21 01/04/22 History 325 mg tablet (Scale Score 7-10) lorazepam 0.5 mg tablet (Ativan) 0.5 mg PO BID 08/09/21 01/04/22 History pregabalin 75 mg capsule (Lyrica) 75 mg PO BID 08/09/21 01/04/22 History fluticasone fur. 100 mcg-umeclid 1 inh inhalation DAILY 01/04/22 01/04/22 History 62.5 mcg-vilant 25 mcg inhalat.powder (Trelegy Ellipta) dicyclomine 10 mg capsule 10 mg PO TID PRN abdominal pain 01/06/22 Rx #20 caps famotidine 20 mg tablet 20 mg PO HS #30 tabs 01/06/22 Rx linaclotide 290 mcg capsule 290 mcg PO DAILY #30 caps 01/06/22 Rx (Linzess) clopidogrel 75 mg tablet mg 01/08/24 01/08/24 History evolocumab 140 mg/mL subcutaneous mg subcut 01/08/24 01/08/24 History pen injector (Jan Morales) isosorbide mononitrate 30 mg mg PO 01/08/24 01/08/24 History tablet,extended release 24 hr loratadine 10 mg tablet mg 01/08/24 01/08/24 History insulin glargine 100 unit/mL (3 See Rx Instructions .Route 01/11/24 01/04/22 Rx mL) subcutaneous pen (Basaglar .COMPLEX #0 mL KwikPen U-100 Insulin) Hospital Stay Data Consultations 01/08/24 16:59 ED Decision to Admit Stat 01/08/24 18:47 Consult Cardiology Routine Procedures Performed Operation Date: 01/10/24 11:00 Actual Procedures p Cineradiography w/Routine Exam - Cedric Christensen MD, PhD s Cath, Coronaries ONLY (no LV) - Cedric Christensen MD, PhD s Placement Art Occlusive Device - Cedric Christensen MD, PhD Diagnostic Imagining Performed 01/08/24 16:13 CT head/brain wo con Stat 01/10/24 10:57 CL Cath Imgs for PACS use only Routine Reviewed imaging, laboratory and diagnostic studies. Pertinent findings as below. Myocardial stress test showed areas of ischemia. I refer to the full report for details Cardiac Mine Promotor showed patent stents, diffuse [place] vessel disease, no vessels amenable to intervention. I refer to full report for details Hemoglobin 13.2 INR 1.3 Electrolytes are within normal limits Creatinine 0.86 Triglycerides 235, cholesterol 142, LDL 77, HDL 20 Pending Results Patient Have Any Pending Studies at Discharge: No Discharge Instructions Given to Patient (Per Discharging Provider) Resume your usual warfarin dose, get INR checked on Monday per usual process consider restarting outpatient cardiac rehab Reviewing your home medications, it appears that you may have been taking 2 beta-blockers. Only take the atenolol. Discontinue the metoprolol Total Time Total Time Spent Total Time Spent (In Minutes): 35
[2024-01-11 13:00] VITALS: PULSE 74
== END 2024-01-11 13:46 | disposition home or self-care (01) | DRG 287 ==
LOC: ED 14:22 → INTOOBSV 18:47 → SUATTDRO 18:47 → 2S 18:47
PROC: CLB.CCO (2024-01-10 11:00)